=== PATIENT | male | born 1960 | race Caucasian/White ===

== ENCOUNTER 2022-11-08 06:38 | Outpatient (OUT) | payer MEDICARE, MEDICAID, SELFPAY ==
[2022-11-08 07:04] LABS: Basophils Percent Auto 0.6 % (0.2-2.0); Eosinophils Absolute Auto 0.2 10^3/uL (0.0-0.7); Eosinophils Percent Auto 2.6 % (0.9-7.0); Hematocrit 37.1 % (42.0-54.0); Hemoglobin 12.2 g/dL (14.0-18.0); Immature Granulocytes Abs Auto 0.02 10^3/uL (0.00-0.03); Immature Granulocytes Pct Auto 0.3 % (0.0-0.5); Lymphocytes Absolute Auto 1.4 10^3/uL (1.2-3.8); Lymphocytes Percent Auto 21.9 % (20.5-60.0); Mean Corpuscular HGB Conc 32.9 g/dL (29.9-35.2); Mean Corpuscular Hemoglobin 29.5 pg (25.9-34.0); Mean Corpuscular Volume 89.6 fL (80.0-94.0); Mean Platelet Volume 9.9 fL (9.5-13.5); Monocytes Absolute Auto 0.5 10^3/uL (0.3-0.8); Monocytes Percent Auto 8.2 % (1.7-12.0); Neutrophils Absolute Auto 4.1 10^3/uL (1.4-6.5); Neutrophils Percent Auto 66.4 % (43.0-75.0); Platelet Count 172 10^3/uL (150-450); Red Blood Count 4.14 10^6/uL (4.70-6.10); Red Cell Distribution Width 13.7 % (11.0-15.0); White Blood Count 6.2 10^3/uL (4.0-11.0)
[2022-11-08 07:40] LABS: Alanine Aminotransferase 25 U/L (16-63); Albumin Globulin Ratio 0.8; Albumin Level 3.2 g/dL (3.4-5.0); Alkaline Phosphatase 97 U/L (46-116); Aspartate Amino Transferase 10 U/L (15-37); BUN Creatinine Ratio 19.4; Bilirubin Total 0.2 mg/dL (0.2-1.0); Calcium 9.2 mg/dL (8.5-10.1); Carbon Dioxide 26.9 mmol/L (21.0-32.0); Chloride 105 mmol/L (98-107); Chol HDL Ratio 2.4; Cholesterol 129 mg/dL (<=200); Estimated GFR (African America >60 (>=60); Estimated GFR (Non-African Ame 57 (>=60); Globulin 4.2 g/dL; Glucose 96 mg/dL (74-106); HDL Cholesterol 53 mg/dL (40-60); LDL Cholesterol Calculated 64.6 mg/dL; Potassium 3.9 mmol/L (3.5-5.1); Sodium 139 mmol/L (136-145); Total Protein 7.4 g/dL (6.4-8.2); Triglycerides 57 mg/dL (<=150); VLDL CHOLESTEROL 11.4 mg/dL
== END 2022-11-08 06:39 ==
LOC: LAB 06:38
PROVIDERS: PCP Nurse Practitioner; Visit Provider Nurse Practitioner
DX: E78.2 Mixed hyperlipidemia (principal); D50.8 Other iron deficiency anemias; I10 Essential (primary) hypertension; E55.9 Vitamin D deficiency, unspecified
CPT/HCPCS: 36415; 80053; 80061; 82306; 83540; 85025

== ENCOUNTER 2023-05-17 09:08 | Outpatient (OUT) | payer MEDICARE, MEDICAID, SELFPAY ==
[2023-05-17 09:21] LABS: Basophils Percent Auto 0.6 % (0.2-2.0); Eosinophils Absolute Auto 0.1 10^3/uL (0.0-0.7); Eosinophils Percent Auto 1.2 % (0.9-7.0); Hematocrit 36.1 % (42.0-54.0); Hemoglobin 11.7 g/dL (14.0-18.0); Immature Granulocytes Abs Auto 0.03 10^3/uL (0.00-0.03); Immature Granulocytes Pct Auto 0.5 % (0.0-0.5); Lymphocytes Absolute Auto 1.3 10^3/uL (1.2-3.8); Lymphocytes Percent Auto 18.8 % (20.5-60.0); Mean Corpuscular HGB Conc 32.4 g/dL (29.9-35.2); Mean Corpuscular Hemoglobin 30.6 pg (25.9-34.0); Mean Corpuscular Volume 94.5 fL (80.0-94.0); Mean Platelet Volume 10.6 fL (9.5-13.5); Monocytes Absolute Auto 0.7 10^3/uL (0.3-0.8); Monocytes Percent Auto 10.8 % (1.7-12.0); Neutrophils Absolute Auto 4.5 10^3/uL (1.4-6.5); Neutrophils Percent Auto 68.1 % (43.0-75.0); Platelet Count 145 10^3/uL (150-450); Red Blood Count 3.82 10^6/uL (4.70-6.10); White Blood Count 6.7 10^3/uL (4.0-11.0)
[2023-05-17 11:19] LABS: Alanine Aminotransferase 19 U/L (16-63); Albumin Globulin Ratio 0.7; Albumin Level 2.8 g/dL (3.4-5.0); Alkaline Phosphatase 74 U/L (46-116); Aspartate Amino Transferase 18 U/L (15-37); BUN Creatinine Ratio 21.8; Bilirubin Total 0.3 mg/dL (0.2-1.0); Calcium 9.2 mg/dL (8.5-10.1); Carbon Dioxide 27.4 mmol/L (21.0-32.0); Chloride 103 mmol/L (98-107); Estimated GFR (African America >60 (>=60); Estimated GFR (Non-African Ame >60 (>=60); Globulin 4.1 g/dL; Glucose 92 mg/dL (74-106); Potassium 4.4 mmol/L (3.5-5.1); Sodium 138 mmol/L (136-145); Total Protein 6.9 g/dL (6.4-8.2)
== END 2023-05-17 09:09 | disposition home or self-care (01) ==
LOC: LAB 09:08
PROVIDERS: PCP Nurse Practitioner; Visit Provider Nurse Practitioner
DX: E78.2 Mixed hyperlipidemia (principal); D50.8 Other iron deficiency anemias; I10 Essential (primary) hypertension; E55.9 Vitamin D deficiency, unspecified
CPT/HCPCS: 36415; 80053; 85025

== ENCOUNTER 2023-06-06 18:22 | Emergency (ER) | payer MEDICARE, MEDICAID, SELFPAY ==
[2023-06-06 18:29] VITALS: BP 139/66; PULSE 85; RESP 20; TEMP 36.8; O2SAT 96; BMI 29.4
--- OUTSIDE RECORDS SUMMARY | 2023-06-06 18:30 | XMS_ITS | CCD ---
Author Name Unknown Address [address] [place] [address] Organization [facility] Care Team Providers Care Integrity Consultant Name Role Phone Unavailable Primary Care Provider Unavailabl e OSMAN, CHAPIN Admitting Unavailable OSMAN, CHAPIN Attending Unavailable OSMAN, CHAPIN Primary Care Unavailable OSMAN, CHAPIN Consulting Unavailable OSMAN, CHAPIN Admitting Unavailable OSMAN, CHAPIN Attending Unavailable OSMAN, CHAPIN Primary Care Unavailable OSMAN, CHAPIN Consulting Unavailable OSMAN, CHAPIN Admitting Unavailable OSMAN, CHAPIN Attending Unavailable OSMAN, CHAPIN Primary Care Unavailable OSMAN, CHAPIN Consulting Unavailable OSMAN, CHAPIN Admitting Unavailable OSMAN, CHAPIN Attending Unavailable OSMAN, CHAPIN Primary Care Unavailable OSMAN, CHAPIN Consulting Unavailable OSMAN, CHAPIN Admitting Unavailable OSMAN, CHAPIN Attending Unavailable OSMAN, CHAPIN Primary Care Unavailable OSMAN, CHAPIN Consulting Unavailable Unavailable Primary Care Provider Unavailabl e PROVIDER, UNKNOWN Attending Unavailable PROVIDER, UNKNOWN Admitting Unavailable MARIA LUISA DEWEY Attending Unavailable RUSHER, MARIA LUISA Ma Attending Unavailable MARIA LUISA DEWEY Attending Unavailable Medications Current Medications Medication Drug Class(es) Dates Sig (Normalized) Sig (Original) acetaminophen 500 mg oral tablet (6 sources) Start: 09-29-2021 End: 10-05-2021 take 1 tablet by mouth every six hours as needed for pain acetaminophen (TYLENOL) 500 MG tablet Take 1 Tablet by mouth every 6 hours as needed for Pain or Fever for up to 6 days. 24 Tablet 0 09/29/2021 10/05/2021 [facility] needed acetaminophen (TYLENOL) 325 mg tablet Ta ke 2 Tablets by mouth every 6 hours as needed. 0 Active ascorbic acid 60 mg / beta carotene 5000 unt / copper sulfate 40 mg / dl-alpha tocopheryl acetate 30 unt / sodium selenite 0.04 mg / zinc oxide 40 mg oral tablet (5 sources) Vitamin C take 1 tablet by mouth once daily Multiple Vitamins-Iron (Multivitamin Plus Iron Adult) TABS Take 1 Tablet by mouth daily. 0 Active carbamide peroxide 65 mg/ml otic solution (5 sources) carbamide peroxi de (DEBROX/MURINE) 6.5 % otic solution 3 Drops at bedtime as needed. 0 Active citalopram 40 mg oral tablet (5 sources) Serotonin Reuptake Inhibitor take 1 tablet by mouth once daily citalopram (CeleXA) 40 MG tablet Take 40 mg by mouth daily. 0 Active 24 hr dilTIAZem hydrochloride 240 mg extended release oral capsule (7 sources) Calcium Channel Chanda take 1 capsule by mouth once daily diltiazem (CARDIZEM CD) 240 MG ER capsule Take 240 mg by mouth daily. 0 Active ferrous sulfate 325 mg oral tablet (5 sources) take 1 tablet by mouth once daily ferrous sulfate 325 (65 Fe) MG tablet Take 325 mg by mouth daily. 0 Active guaiFENesin 20 mg/ml oral solution (5 sources) take 200 mg by mouth three times daily as needed guaifenesin (ROBITUSSIN) 100 MG/5ML syrup Take 200 mg by mouth 3 times daily as needed. 0 Active hydrocortisone 25 mg/ml topical cream (5 sources) Corticosteroid hydrocortisone 2 .5 % cream Apply 1 Applicator topically 2 times daily as needed. Insert one application into rectum for hemorrhoids 0 Active ammonium lactate 120 mg/ml topical cream (5 sources) ammonium lactate (LAC-HYDRIN) 12 % cream Apply 1 Applicator topically daily as needed. Apply one application to affected area. 0 Active lactobacillus acidophilus 16 mg oral capsule (7 sources) take 1 tablet by mouth three times daily Lactobacillus (ACIDOPHILUS) 100 MG CAPS Take 1 Tab by mouth 3 times daily. 0 Active lactulose 667 mg/ml oral solution (8 sources) Osmotic Laxative End: 022 take 20 g by mouth twice daily lactulose 10 g/15 mL oral solution Take 20 g by mouth 2 times daily. 0 Active lisinopril 30 mg oral tablet (7 sources) Angiotensin Converting Enzyme Inhibitor take 1 tablet by mouth once daily lisinopril (PRINIVIL, ZESTRIL) 30 MG tablet Take 30 mg by mouth daily. 0 Active LORazepam 2 mg oral tablet (5 sources) Benzodiazepine lorazepam (ATIVA N) 2 MG tablet Take 2 mg by mouth as needed. Take 2 mg one hour prior to appointments, procedures, blood draws or testing 0 Active miconazole nitrate 20 mg/ml topical spray (5 sources) Azole Antifungal Miconazole Nitr ate 2 % AERO Apply 1 Applicator externally daily. 0 Active 24 hr mirabegron 50 mg extended release oral tablet (5 sources) beta3-Adrenergic Agonist take 1 tablet by mouth once daily mirabegron ER (MYRBETRIQ) 50 MG TB24 tablet Take 50 mg by mouth daily. 0 Active omega-3 acid ethyl esters (halfway) 1000 mg oral capsule (5 sources) take 1 g by mouth once daily wyhaa-8-ulpf (LOVAZA) 1 GM capsule Take 1,000 mg by mouth daily. 0 Active 24 hr oxybutynin chloride 15 mg extended release oral tablet (8 sources) Cholinergic Muscarinic Antagonist End: take 1 tablet by mouth once daily oxybutynin (DITROPAN XL) 15 MG XL tablet Take 15 mg by mouth daily. 0 Active polyethylene glycol 3350 02460 mg powder for oral solution (8 sources) Osmotic Laxative End: polyethylene glycol (GLYCOLAX) 17 GM/SCOOP powder Dissolve 17 g in 8 ounces of liquid and drink daily. 0 Active risperiDONE 0.5 mg oral tablet (5 sources) Atypical Antipsychotic take 1 tablet by mouth twice daily risperiDONE (RISPERDAL) 0.5 MG tablet Take 0.5 mg by mouth 2 times daily. 0 Active sennosides, halfway 8.6 mg oral tablet (7 sources) take 2 tablets by mouth at bedtime senna (SENOKOT) 8.6 MG TABS tablet Take 2 Tabs by mouth at bedtime. 0 Active simvastatin 10 mg oral tablet (8 sources) HMG-CoA Reductase Inhibitor End: take 1 tablet by mouth once daily in the evening simvastatin (ZOCOR) 10 MG tablet Take 10 mg by mouth every evening. 0 Active Zinc (4 sources) take 1 tablet by mouth once daily Zinc 50 MG TABS Take 1 Tablet by mouth daily. 0 Active zinc gluconate 50 mg oral tablet (1 source) take 1 tablet by mouth once daily Zinc 50 MG TABS Take 1 Tablet by mouth daily. 0 Active Completed/Discontinued Medications Medication Drug Class(es) Dates Sig (Normalized) Sig (Original) amoxicillin 500 mg oral capsule (3 sources) Penicillin-class Antibacterial End: 09-20-2021 take 1 capsule by mouth once daily amoxicillin (AMOXIL) 500 MG capsule Take 500 mg by mouth daily. 0 09/20/2021 Discontinued (Discontinued by another Health Care Provider) chlorhexidine gluconate 1.2 mg/ml mouthwash (2 sources) Start: 01-07-2014 End: 09-20-2021 take 15 mL by mouth twice daily chlorhexidine (PERIDEX) 0.12 % oral solution Take 15 mL by mouth 2 times daily for 15 days. 1 Bottle 3 01/07/2014 09/20/2021 Discontinued (Discontinued by another Health Care Provider) docosahexaenoic acid 120 mg / eicosapentaenoic acid 180 mg oral capsule (3 sources) End: 09-20-2021 take 2 capsules by mouth twice daily [place]-3 1000 MG CAPS Take 2 Caps by mouth 2 times daily. 0 09/20/2021 Discontinued (Discontinued by another Health Care Provider) Multiple Vitamins-Minerals (COMPLETE MULTIVITAMIN/MINERAL) LIQD (3 sources) End: 09-20-2021 take 1 tablet by mouth once daily Multiple Vitamins-Minerals (COMPLETE MULTIVITAMIN/BOAT OPERATOR AL) LIQD Take 1 Tab by mouth daily. 0 09/20/2021 Discontinued (Discontinued by another Health Care Provider) take 1 tablet by mouth once gonzalo y Multiple Vitamins-Minerals (COMPLETE MULTIVITAMIN/MINERAL) LIQD Take 1 Tab by mouth daily. 0 Active Psyllium (3 sources) End: 09-20-2021 Psyllium (METAMUCIL SUNRISE ORAL) Take by mouth. 0 09/20/2021 Discontinued (Discontinued by another Health Care Provider) Psyllium (METAMU CIL SUNRISE ORAL) Take by mouth. 0 Active raNITIdine 150 mg oral tablet (3 sources) Histamine-2 Receptor Antagonist End: 09-20-2021 take 1 tablet by mouth twice daily ranitidine (ZANTAC) 150 MG tablet Take 150 mg by mouth 2 times daily. 0 09/20/2021 Discontinued (Discontinued by another Health Care Provider) Problems Active Problems Problem Classification Problem Date Documented Da te Episodic/Chronic Deficiency and other anemia (1 source) Other iron deficiency anemias; 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: [OTHER IRON DEFICIENCY ANEMIAS] Onset: 11-02-2021 Episodic Disorders of lipid metabolism (4 sources) Mixed hyperlipidemia; 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: [MIXED HYPERLIPIDEMIA] Onset: 10-31-2021 Chronic Essential hypertension (1 source) Essential (primary) hypertension; 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: [ESSENTIAL PRIMARY HYPERTENSION] Onset: 11-02-2021 Chronic Nutritional deficiencies (1 source) Vitamin D deficiency, unspecified; 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: [VITAMIN D DEFICIENCY UNSPECIFIED] Onset: 11-02-2021 Chronic Unclassified (3 sources) CONTACT W/AND (SUSP) EXPOS COVID-19; 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: [CONTACT W/AND (SUSP) EXPOS COVID-19] Onset: 03-15-2021 Past or Other Problems Problem Classification Problem Date Documented Da te Episodic/Chronic Disorders of teeth and jaw (7 sources) Dental caries; 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: [Dental caries, unspecified] Onset: 08-02-2021 08-02-2021 Episodic Unclassified (1 source) CONTACT W/AND (SUSP) EXPOS COVID-19; 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: [CONTACT W/AND (SUSP) EXPOS COVID-19] Onset: 03-01-2021 Results Test Name Value Interpretation Reference Range Facility Progress Noteson 11-30-2022 [employer] Authentication Interface Message Text ----- Wednesday, November 30, 2022 at 1:07:59 PM ----- ----- Provider: Donovan Alvarado, -- Clinic: [place] ----- OR EVALUATION Patient presents for evaluation to determine best course of treatment due to history of . Moderate MR, Spina Bifida w/Paraplegia, HTN, Anemia, Hydrochephalus, Constipation, Bilateral Hydronephrosis Patient is accompanied by caregiver for today's appointment. Patient partially cooperated for a partial intraoral exam. Clinical findings: Decay and Gingivitis It is best suited that this patient have full comprehensive examination, radiographs and treatment completed in the OR setting. Explained that the patient will be added to our OR waiting list, and the legal guardian will be contacted once a time slot becomes available. Legal Guardian: Vilma Schmitt (Sister) [phone] , verbal consent was taken NOTE: OR request was put in place Next Visit: Dental treatment in the OR ----- Signed on Wednesday, November 30, 2022 at 8:25:31 PM ----- ----- Provider: [id number] - Winston Glass DMD -- Clinic: [place] ----- Normal [facility] CBC AUTO DIFFon 10-31-2021 BASO # 0.0 103/ul Normal 0.0-0.1 [facility] Comment on above: Performed By: #### C BC #### [facility] [address] [address] [address] Dante Jules Basophils/100 WBC (Bld) 0.5 % Normal 0.2-2.0 [facility] Comment on above: Performed By: #### C BC #### [facility] [address] [address] [address] Dante Jules EO # 0.2 103/ul Normal 0.0-0.7 [facility] Comment on above: Performed By: #### C BC #### [facility] [address] [address] [address] Dante Jules Eosinophils/100 WBC (Bld) 2.3 % Normal 0.9-7.0 [facility] Comment on above: Performed By: #### C BC #### [facility] [address] [address] [address] Dante Jules Erythrocyte distribution width (RBC) [Ratio] 13.6 % Normal 11.0-15.0 [facility] Comment on above: Performed By: #### C BC #### [facility] [address] [address] [address] Dante Jules Hematocrit (Bld) [Volume fraction] 41.6 % Critically low 42.0-54.0 [facility] Comment on above: Performed By: #### C BC #### [facility] [address] [address] [address] Dante Jules Hemoglobin (Bld) [Mass/Vol] 13.3 g/dL Critically low 14.0-18.0 [facility] Comment on above: Performed By: #### C BC #### [facility] [address] [address] [address] Dante Jules IG # 0.01 10e3/ul Normal 0.00-0.03 [facility] Comment on above: Performed By: #### C BC #### [facility] [address] [place] [address] Dr. Dante Jules IG % 0.1 % Normal 0.0-0.5 [facility] Comment on above: Performed By: #### C BC #### [facility] [address] [place] [address] Dr. Dante Jules LYMPH # 1.7 103/ul Normal 1.2-3.8 [facility] Comment on above: Performed By: #### C BC #### [facility] [address] [place] [address] Dr. Dante Jules Lymphocytes/100 WBC (Bld) 21.8 % Normal 20.5-60.0 [facility] Comment on above: Performed By: #### C BC #### [facility] [address] [place] [address] Dr. Dante Jules MANUAL DIFF REQ NO Normal [facility] Comment on above: Performed By: #### C BC #### [facility] [address] [place] [address] Dr. Dante Jules MCH (RBC) [Entitic mass] 29.4 pg Normal 25.9-34.0 [facility] Comment on above: Performed By: #### C BC #### [facility] [address] [place] [address] Dr. Dante Jules MCHC (RBC) [Mass/Vol] 32.0 g/dL Normal 29.9-35.2 [facility] Comment on above: Performed By: #### C BC #### [facility] [address] [place] [address] Dr. Dante Jules MCV (RBC) [Entitic vol] 91.8 fL Normal 80.0-94.0 [facility] Comment on above: Performed By: #### C BC #### [facility] [address] [place] [address] Dr. Dante Jules MONO # 0.6 103/ul Normal 0.3-0.8 [facility] Comment on above: Performed By: #### C BC #### [facility] [address] [place] [address] Dr. Dante Jules Monocytes/100 WBC (Bld) 7.8 % Normal 1.7-12.0 [facility] Comment on above: Performed By: #### C BC #### [facility] [address] [place] [address] Dr. Dante Jules NEUT # 5.3 103/ul Normal 1.4-6.5 [facility] Comment on above: Performed By: #### C BC #### [facility] [address] [place] [address] Dr. Dante Jules Neutrophils/100 WBC (Bld) 67.5 % Normal 43.0-75.0 [facility] Comment on above: Performed By: #### C BC #### [facility] [address] [place] [address] Dr. Dante Jules Platelet mean volume (Bld) [Entitic vol] 10.2 fL Normal 9.5-13.5 [facility] Comment on above: Performed By: #### C BC #### [facility] [address] [place] [address] Dr. Dante Jules PLT 191 103/ul Normal 150-450 [facility] Comment on above: Performed By: #### C BC #### [facility] [address] [place] [address] Dr. Dante Jules RBC 4.53 106/ul Critically low 4.70-6.10 [facility] Comment on above: Performed By: #### C BC #### [facility] [address] [place] [address] Dr. Dante Jules WBC 7.9 103/ul Normal 4.0-11.0 [facility] Comment on above: Performed By: #### C BC #### [facility] [address] [place] [address] Dr. Dante Jules IRON AND TIBCon 10-24-2021 % SATURATION 19.9 % Normal [facility] Comment on above: Performed By: #### F ETIBC #### [facility] [address] [place] [address] Dr. Dante Jules Iron [Mass/Vol] 67.0 ug/dL Normal 65.0-175.0 [facility] Comment on above: Performed By: #### F ETIBC #### [facility] [address] [address] [address] Dante Jules TIBC DIRECT 336.0 ug/dL Normal 250.0-450.0 [facility] Comment on above: Performed By: #### F ETIBC #### [facility] [address] [address] [address] Dante Jules LIPID PROFILEon 10-24-2021 CHOL-HDL RATIO NORM SEE BELOW Normal [facility] Comment on above: Result Comment: 3.3 - 4.4 LOW RISK 4.4 - 7.1 AVERAGE RISK 7.1 - 11.0 MODERATE RISK >11.0 HIGH RISK Performed By: #### L IPID, CMP #### [facility] [address] [address] [address] Dante Jules Cholesterol [Mass/Vol] 170 mg/dL Normal <=200 [facility] Comment on above: Performed By: #### L IPID, CMP #### [facility] [address] [address] [address] Dante Jules Cholesterol in HDL [Mass/Vol] 52 mg/dL Normal 40-60 [facility] Comment on above: Performed By: #### L IPID, CMP #### [facility] [address] [address] [address] Dante Jules Cholesterol in LDL [Mass/Vol] 104.0 mg/dL Normal [facility] Comment on above: Performed By: #### L IPID, CMP #### [facility] [address] [address] [address] Dante Jules Cholesterol.total/C holesterol in HDL [Mass ratio] 3.3 {ratio} Normal [facility] Comment on above: Performed By: #### L IPID, CMP #### [facility] [address] [address] [address] Dante Jules HDL NORMAL > or = 60 mg/dl - LOW CARDIOVASCULAR RISK <40 mg/dl - HIGH CARDIOVASCULAR RISK Normal [facility] Comment on above: Performed By: #### L IPID, CMP #### [facility] [address] [address] [address] Dante Jules LDL CALC NORMAL SEE BELOW Normal [facility] Comment on above: Result Comment: <100 mg/dl OPTIMAL 100 - 129 mg/dl NEAR OR ABOVE OPTIMAL 130 - 159 mg/dl BORDERLINE HIGH 160 - 189 mg/dl HIGH >190 mg/dl VERY HIGH Performed By: #### L IPID, CMP #### [facility] [address] [address] [address] Dante Jules Triglyceride [Mass/Vol] 70 mg/dL Normal <=150 [facility] Comment on above: Performed By: #### L IPID, CMP #### [facility] [address] [address] [address] Dante Jules VLDL CALC 14.0 mg/dL Normal [facility] Comment on above: Performed By: #### L IPID, CMP #### [facility] [address] [place] [address] Dr. Dante Jules PROF 14(COMP METB)on 022 Albumin [Mass/Vol] 3.4 g/dL Normal 3.4-5.0 [facility] Comment on above: Performed By: #### L IPID, CMP #### [facility] [address] [place] [address] Dr. Dante Jules Albumin/Globulin [Mass ratio] 0.8 {ratio} Normal [facility] Comment on above: Performed By: #### L IPID, CMP #### [facility] [address] [address] [address] Dante Jules ALP [Catalytic activity/Vol] 104 U/L Normal 46-116 [facility] Comment on above: Performed By: #### L IPID, CMP #### [facility] [address] [address] [address] Dante Jules ALT [Catalytic activity/Vol] 31 U/L Normal 16-63 [facility] Comment on above: Performed By: #### L IPID, CMP #### [facility] [address] [address] [address] Dante Jules Anion gap [Moles/Vol] 11.9 mmol/L Normal [facility] Comment on above: Performed By: #### L IPID, CMP #### [facility] [address] [address] [address] Dante Jules AST [Catalytic activity/Vol] 22 U/L Normal 15-37 [facility] Comment on above: Performed By: #### L IPID, CMP #### [facility] [address] [address] [address] Dante Jules Bilirubin [Mass/Vol] 0.4 mg/dL Normal 0.2-1.0 [facility] Comment on above: Performed By: #### L IPID, CMP #### [facility] [address] [place] [address] Dr. Dante Jules Calcium [Mass/Vol] 9.0 mg/dL Normal 8.5-10.1 [facility] Comment on above: Performed By: #### L IPID, CMP #### [facility] [address] [place] [address] Dr. Dante Jules Chloride [Moles/Vol] 106 mmol/L Normal 98-107 [facility] Comment on above: Performed By: #### L IPID, CMP #### [facility] [address] [place] [address] Dr. Dante Jules CO2 [Moles/Vol] 26.3 mmol/L Normal 21.0-32.0 [facility] Comment on above: Performed By: #### L IPID, CMP #### [facility] [address] [place] [address] Dr. Dante Jules Creatinine [Mass/Vol] 1.17 mg/dL Normal 0.70-1.30 [facility] Comment on above: Performed By: #### L IPID, CMP #### [facility] [address] [place] [address] Dr. Dante Jules EGFR-AF IRANIAN >60 Normal >=60 [facility] Comment on above: Performed By: #### L IPID, CMP #### [facility] [address] [address] [address] Dante Jules EGFR-NON AF IRANIAN >60 Normal >=60 [facility] Comment on above: Performed By: #### L IPID, CMP #### [facility] [address] [address] [address] Dante Jules Globulin (S) [Mass/Vol] 4.2 g/dL Normal [facility] Comment on above: Performed By: #### L IPID, CMP #### [facility] [address] [address] [address] Dante Jules Glucose [Mass/Vol] 95 mg/dL Normal 74-106 [facility] Comment on above: Performed By: #### L IPID, CMP #### [facility] [address] [place] [address] Dr. Dante Jules Potassium [Moles/Vol] 4.2 mmol/L Normal 3.5-5.1 [facility] Comment on above: Performed By: #### L IPID, CMP #### [facility] [address] [place] [address] Dr. Dante Jules Protein [Mass/Vol] 7.6 g/dL Normal 6.4-8.2 [facility] Comment on above: Performed By: #### L IPID, CMP #### [facility] [address] [place] [address] Dr. Dante Jules Sodium [Moles/Vol] 140 mmol/L Normal 136-145 [facility] Comment on above: Performed By: #### L IPID, CMP #### [facility] [address] [address] [address] Dante Jules Urea nitrogen [Mass/Vol] 22.0 mg/dL Critically high 7.0-18.0 [facility] Comment on above: Performed By: #### L IPID, CMP #### [facility] [address] [place] [address] Dr. Dante Jules Urea nitrogen/Creatinine [Mass ratio] 18.8 mg/mg Normal [facility] Comment on above: Performed By: #### L IPID, CMP #### [facility] [address] [place] [address] Dr. Dante Jules CBC AUTO DIFFon 08-16-2021 BASO # 0.0 103/ul Normal 0.0-0.1 [facility] Comment on above: Performed By: #### V ITAD, PSAD #### [facility] [address] [place] [address] Dr. Dante Jules Basophils/100 WBC (Bld) 0.5 % Normal 0.2-2.0 [facility] Comment on above: Performed By: #### V ITAD, PSAD #### [facility] [address] [place] [address] Dr. Dante Jules EO # 0.4 103/ul Normal 0.0-0.7 [facility] Comment on above: Performed By: #### V ITAD, PSAD #### [facility] [address] [place] [address] Dr. Dante Jules Eosinophils/100 WBC (Bld) 5.0 % Normal 0.9-7.0 [facility] Comment on above: Performed By: #### V ITAD, PSAD #### [facility] [facility] [address] [place] [address] Dr. Dante Jules Erythrocyte distribution width (RBC) [Ratio] 13.6 % Normal 11.0-15.0 [facility] Comment on above: Performed By: #### V ITAD, PSAD #### [facility] [address] [place] [address] Dr. Dante Jules Hematocrit (Bld) [Volume fraction] 36.4 % Critically low 42.0-54.0 [facility] Comment on above: Performed By: #### V ITAD, PSAD #### [facility] [address] [place] [address] Dr. Dante Jules Hemoglobin (Bld) [Mass/Vol] 11.8 g/dL Critically low 14.0-18.0 [facility] Comment on above: Performed By: #### V ITAD, PSAD #### [facility] [address] [address] [address] Dante Jules IG # 0.02 10e3/ul Normal 0.00-0.03 [facility] Comment on above: Performed By: #### V FELICIA, PSAD #### [facility] [address] [place] [address] Dr. Dante Jules IG % 0.2 % Normal 0.0-0.5 [facility] Comment on above: Performed By: #### V FELICIA, PSAD #### [facility] [address] [place] [address] Dr. Dante Jules LYMPH # 2.3 103/ul Normal 1.2-3.8 [facility] Comment on above: Performed By: #### V FELICIA, PSAD #### [facility] [address] [place] [address] Dr. Dante Jules Lymphocytes/100 WBC (Bld) 28.0 % Normal 20.5-60.0 [facility] Comment on above: Performed By: #### Tiffani DUARTE, PSAD #### [facility] [address] [place] [address] Dr. Dante Jules MANUAL DIFF REQ NO Normal [facility] Comment on above: Performed By: #### V FELICIA, PSAD #### [facility] [address] [place] [address] Dr. Dante Jules MCH (RBC) [Entitic mass] 29.1 pg Normal 25.9-34.0 [facility] Comment on above: Performed By: #### V FELICIA, PSAD #### [facility] [address] [place] [address] Dr. Dante Jules MCHC (RBC) [Mass/Vol] 32.4 g/dL Normal 29.9-35.2 [facility] Comment on above: Performed By: #### V ITKRYSTLE, PSAD #### [facility] [address] [place] [address] Dr. Dante Jules MCV (RBC) [Entitic vol] 89.7 fL Normal 80.0-94.0 [facility] Comment on above: Performed By: #### V FELICIA, PSAD #### [facility] [address] [place] [address] Dr. Dante Jules MONO # 0.7 103/ul Normal 0.3-0.8 [facility] Comment on above: Performed By: #### V ITAD, PSAD #### [facility] [address] [place] [address] Dr. Dante Jules Monocytes/100 WBC (Bld) 8.5 % Normal 1.7-12.0 [facility] Comment on above: Performed By: #### V ITAD, PSAD #### [facility] [address] [place] [address] Dr. Dante Jules NEUT # 4.7 103/ul Normal 1.4-6.5 [facility] Comment on above: Performed By: #### V ITAD, PSAD #### [facility] [address] [place] [address] Dr. Dante Jules Neutrophils/100 WBC (Bld) 57.8 % Normal 43.0-75.0 [facility] Comment on above: Performed By: #### V ITAD, PSAD #### [facility] [address] [place] [address] Dr. Dante Jules Platelet mean volume (Bld) [Entitic vol] 9.9 fL Normal 9.5-13.5 [facility] Comment on above: Performed By: #### V ITAD, PSAD #### [facility] [address] [place] [address] Dr. Dante Jules PLT 155 103/ul Normal 150-450 [facility] Comment on above: Performed By: #### V ITAD, PSAD #### [facility] [address] [place] [address] Dr. Dante Jules RBC 4.06 106/ul Critically low 4.70-6.10 [facility] Comment on above: Performed By: #### V ITAD, PSAD #### [facility] [address] [place] [address] Dr. Dante Jules WBC 8.0 103/ul Normal 4.0-11.0 [facility] Comment on above: Performed By: #### V ITKRYSTLE, PSAD #### [facility] [address] [address] [address] Dante Jules PROF 14(COMP METB)on 022 Albumin [Mass/Vol] 3.1 g/dL Critically low 3.4-5.0 Th e [facility] Comment on above: Performed By: #### C MP #### [facility] [address] [place] [address] Dr. Dante Jules Albumin/Globulin [Mass ratio] 0.7 {ratio} Normal [facility] Comment on above: Performed By: #### C MP #### [facility] [address] [place] [address] Dr. Dante Jules ALP [Catalytic activity/Vol] 112 U/L Normal 46-116 [facility] Comment on above: Performed By: #### C MP #### [facility] [address] [place] [address] Dr. Dante Jules ALT [Catalytic activity/Vol] 29 U/L Normal 16-63 [facility] Comment on above: Performed By: #### C MP #### [facility] [address] [place] [address] Dr. Dante Jules Anion gap [Moles/Vol] 13.7 mmol/L Normal [facility] Comment on above: Performed By: #### C MP #### [facility] [address] [place] [address] Dr. Dante Jules AST [Catalytic activity/Vol] 15 U/L Normal 15-37 [facility] Comment on above: Performed By: #### C MP #### [facility] [address] [place] [address] Dr. Dante Jules Bilirubin [Mass/Vol] 0.2 mg/dL Normal 0.2-1.3 [facility] Comment on above: Performed By: #### C MP #### [facility] [address] [place] [address] Dr. Dante Jules Calcium [Mass/Vol] 8.5 mg/dL Normal 8.5-10.1 [facility] Comment on above: Performed By: #### C MP #### [facility] [address] [address] [address] Dante Jules Chloride [Moles/Vol] 104 mmol/L Normal 98-107 [facility] Comment on above: Performed By: #### C MP #### [facility] [address] [address] [address] Dante Jules CO2 [Moles/Vol] 24.2 mmol/L Normal 22.0-30.0 [facility] Comment on above: Performed By: #### C MP #### [facility] [address] [address] [address] Dante Jules Creatinine [Mass/Vol] 1.09 mg/dL Normal 0.66-1.25 [facility] Comment on above: Performed By: #### C MP #### [facility] [address] [address] [address] Dante Jules EGFR-AF IRANIAN >60 Normal >=60 [facility] Comment on above: Performed By: #### C MP #### [facility] [address] [address] [address] Dante Jules EGFR-NON AF IRANIAN >60 Normal >=60 [facility] Comment on above: Performed By: #### C MP #### [facility] [address] [address] [address] Dante Jules Globulin (S) [Mass/Vol] 4.2 g/dL Normal [facility] Comment on above: Performed By: #### C MP #### [facility] [address] [address] [address] Dante Jules Glucose [Mass/Vol] 117 mg/dL Critically high 74-106 T [facility] Comment on above: Performed By: #### C MP #### [facility] [address] [address] [address] Dante Jules Potassium [Moles/Vol] 3.9 mmol/L Normal 3.4-5.0 [facility] Comment on above: Performed By: #### C MP #### [facility] [address] [place] [address] Dr. Dante Jules Protein [Mass/Vol] 7.3 g/dL Normal 6.1-8.2 [facility] Comment on above: Performed By: #### C MP #### [facility] [address] [place] [address] Dr. Dante Jules Sodium [Moles/Vol] 138 mmol/L Normal 137-145 [facility] Comment on above: Performed By: #### C MP #### [facility] [address] [place] [address] Dr. Dante Jules Urea nitrogen [Mass/Vol] 22.0 mg/dL Critically high 7.0-18.0 [facility] Comment on above: Performed By: #### C MP #### [facility] [address] [place] [address] Dr. Dante Jules Urea nitrogen/Creatinine [Mass ratio] 20.2 mg/mg Normal [facility] Comment on above: Performed By: #### C MP #### [facility] [address] [place] [address] Dr. Dante Jules VITAMIN D 25 OHon 08-16-2021 VIT D 25-OH 31.9 ng/mL Normal [facility] Comment on above: Performed By: #### V FELICIA PSAD #### [facility] [address] [place] [address] Dr. Dante Jules VIT D RANGES SEE BELOW Normal [facility] Comment on above: Result Comment: <20 ng/mL Vit D deficient 20 - <30 ng/mL Vit D insufficient 30 - 100 ng/mL Vit D sufficient >100 ng/mL Potential Toxicity Performed By: #### V FELICIA, PSAD #### [facility] [address] [place] [address] Dr. Dante Jules CBC AUTO DIFFon 03-13-2021 BASO # 0.0 103/ul Normal 0.0-0.1 [facility] Comment on above: Performed By: #### C BC #### [facility] [address] [place] [address] Dr. Dante Jules Basophils/100 WBC (Bld) 0.5 % Normal 0.2-2.0 [facility] Comment on above: Performed By: #### C BC #### [facility] [address] [place] [address] Dr. Dante Jules EO # 0.2 103/ul Normal 0.0-0.7 [facility] Comment on above: Performed By: #### C BC #### [facility] [address] [place] [address] Dr. Dante Jules Eosinophils/100 WBC (Bld) 2.5 % Normal 0.9-7.0 [facility] Comment on above: Performed By: #### C BC #### [facility] [address] [place] [address] Dr. Dante Jules Erythrocyte distribution width (RBC) [Ratio] 13.3 % Normal 11.0-15.0 [facility] Comment on above: Performed By: #### C BC #### [facility] [address] [place] [address] Dr. Dante Jules Hematocrit (Bld) [Volume fraction] 36.9 % Critically low 42.0-54.0 [facility] Comment on above: Performed By: #### C BC #### [facility] [address] [place] [address] Dr. Dante Jules Hemoglobin (Bld) [Mass/Vol] 12.0 g/dL Critically low 14.0-18.0 [facility] Comment on above: Performed By: #### C BC #### [facility] [address] [place] [address] Dr. Dante Jules IG # 0.01 10e3/ul Normal 0.00-0.03 [facility] Comment on above: Performed By: #### C BC #### [facility] [address] [place] [address] Dr. Dante Jules IG % 0.2 % Normal 0.0-0.5 [facility] Comment on above: Performed By: #### C BC #### [facility] [address] [place] [address] Dr. Dante Jules LYMPH # 1.4 103/ul Normal 1.2-3.8 [facility] Comment on above: Performed By: #### C BC #### [facility] [address] [place] [address] Dr. Dante Jules Lymphocytes/100 WBC (Bld) 24.4 % Normal 20.5-60.0 [facility] Comment on above: Performed By: #### C BC #### [facility] [address] [place] [address] Dr. Dante Jules MANUAL DIFF REQ NO Normal [facility] Comment on above: Performed By: #### C BC #### [facility] [address] [place] [address] Dr. Dante Jules MCH (RBC) [Entitic mass] 29.2 pg Normal 25.9-34.0 [facility] Comment on above: Performed By: #### C BC #### [facility] [address] [place] [address] Dr. Dante Jules MCHC (RBC) [Mass/Vol] 32.5 g/dL Normal 29.9-35.2 [facility] Comment on above: Performed By: #### C BC #### [facility] [address] [place] [address] Dr. Dante Jules MCV (RBC) [Entitic vol] 89.8 fL Normal 80.0-94.0 [facility] Comment on above: Performed By: #### C BC #### [facility] [address] [place] [address] Dr. Dante Jules MONO # 0.5 103/ul Normal 0.3-0.8 [facility] Comment on above: Performed By: #### C BC #### [facility] [address] [place] [address] Dr. Dante Jules Monocytes/100 WBC (Bld) 8.3 % Normal 1.7-12.0 [facility] Comment on above: Performed By: #### C BC #### [facility] [address] [place] [address] Dr. Dante Jules NEUT # 3.8 103/ul Normal 1.4-6.5 [facility] Comment on above: Performed By: #### C BC #### [facility] [address] [address] [address] Dante Jules Neutrophils/100 WBC (Bld) 64.1 % Normal 43.0-75.0 [facility] Comment on above: Performed By: #### C BC #### [facility] [address] [address] [address] Dante Jules Platelet mean volume (Bld) [Entitic vol] 10.1 fL Normal 9.5-13.5 [facility] Comment on above: Performed By: #### C BC #### [facility] [address] [address] [address] Dante Jules PLT 161 103/ul Normal 150-450 [facility] Comment on above: Performed By: #### C BC #### [facility] [address] [place] [address] Dr. Dante Jules RBC 4.11 106/ul Critically low 4.70-6.10 [facility] Comment on above: Performed By: #### C BC #### [facility] [address] [place] [address] Dr. Dante Jules WBC 5.9 103/ul Normal 4.0-11.0 [facility] Comment on above: Performed By: #### C BC #### [facility] [address] [place] [address] Dr. Dante Jules PROF 14(COMP METB)on 021 Albumin [Mass/Vol] 3.0 g/dL Critically low 3.5-5.0 [facility] Comment on above: Performed By: #### C MP #### [facility] [address] [place] [address] Dr. Dante Jules Albumin/Globulin [Mass ratio] 0.7 {ratio} Normal [facility] Comment on above: Performed By: #### C MP #### [facility] [address] [address] [address] Dante Jules ALP [Catalytic activity/Vol] 91 U/L Normal 38-126 [facility] Comment on above: Performed By: #### C MP #### [facility] [address] [address] [address] Dante Jules ALT [Catalytic activity/Vol] 30 U/L Normal 21-72 [facility] Comment on above: Performed By: #### C MP #### [facility] [address] [address] [address] Dante Jules Anion gap [Moles/Vol] 10.1 mmol/L Normal [facility] Comment on above: Performed By: #### C MP #### [facility] [address] [address] [address] Dante Jules AST [Catalytic activity/Vol] 18 U/L Normal 17-59 [facility] Comment on above: Performed By: #### C MP #### [facility] [address] [place] [address] Dr. Dante Jules Bilirubin [Mass/Vol] 0.2 mg/dL Normal 0.2-1.3 [facility] Comment on above: Performed By: #### C MP #### [facility] [address] [place] [address] Dr. Dante Jules Calcium [Mass/Vol] 8.7 mg/dL Normal 8.4-10.2 [facility] Comment on above: Performed By: #### C MP #### [facility] [address] [place] [address] Dr. Dante Jules Chloride [Moles/Vol] 103 mmol/L Normal 98-107 [facility] Comment on above: Performed By: #### C MP #### [facility] [address] [place] [address] Dr. Dante Jules CO2 [Moles/Vol] 25.8 mmol/L Normal 22.0-30.0 [facility] Comment on above: Performed By: #### C MP #### [facility] [address] [place] [address] Dr. Dante Jules Creatinine [Mass/Vol] 1.31 mg/dL Critically high 0.66-1.25 [facility] Comment on above: Performed By: #### C MP #### [facility] [address] [address] [address] Dante Jules EGFR-AF IRANIAN >60 Normal >=60 [facility] Comment on above: Performed By: #### C MP #### [facility] [address] [address] [address] Dante Jules EGFR-NON AF IRANIAN 56 mL/min/1.73m2 Critically low >=60 [facility] Comment on above: Performed By: #### C MP #### [facility] [address] [address] [address] Dante Jules Globulin (S) [Mass/Vol] 4.2 g/dL Normal [facility] Comment on above: Performed By: #### C MP #### [facility] [address] [address] [address] Dante Jules Glucose [Mass/Vol] 132 mg/dL Critically high 74-106 T [facility] Comment on above: Performed By: #### C MP #### [facility] [address] [address] [address] Dante Jules Potassium [Moles/Vol] 3.9 mmol/L Normal 3.4-5.0 [facility] Comment on above: Performed By: #### C MP #### [facility] [address] [address] [address] Dante Jules Protein [Mass/Vol] 7.2 g/dL Normal 6.1-8.2 [facility] Comment on above: Performed By: #### C MP #### [facility] [address] [address] [address] Dante Jules Sodium [Moles/Vol] 135 mmol/L Critically low 137-145 [facility] Comment on above: Performed By: #### C MP #### [facility] [address] [address] [address] Dante Jules Urea nitrogen [Mass/Vol] 14.0 mg/dL Normal 9.0-20.0 [facility] Comment on above: Performed By: #### C MP #### [facility] [address] [address] [address] Dante Jules Urea nitrogen/Creatinine [Mass ratio] 10.7 mg/mg Normal [facility] Comment on above: Performed By: #### C MP #### [facility] [address] [place], [place] [address] Dr. Dante Jules Covid-19 PCR (CVDTB)on 02-17 SARS-CoV-2 (COVID-19) RNA PATRICIA+probe Ql (Unsp spec) Not detected Normal NOT DETECTED [facility] Comment on above: Result Comment: When diagnostic testing is negative, the possibility of a false negative should be considered in the context of a patient's recent exposures and the presence of clinical signs and symptoms consistent with SARS-CoV-2. This test is not yet approved or cleared by the [place] Food and Drug Administration (FDA). This test was developed by [employer], [place], [place]. The performance characteristics of this test were validated by The [facility]. The results are not intended to be used as the sole means for clinical diagnosis or patient management decisions. The [facility] is authorized under Clinical Laboratory Improvement Amendments (CLIA) to perform high- complexity testing. Performed By: #### [facility] #### [facility] [address], [place] [address] Dr. Dante Jules Encounters Encounter Date Encounter Type Care Provider Facility Start: 06-05-2023 End: 06-05-2023 ambulatory MARIA LUISA A RUSHER Not Available Start: 05-15-2023 End: 05-15-2023 ambulatory MARIA LUISA A RUSHER Not Available Start: 04-24-2023 End: 04-24-2023 ambulatory MARIA LUISA A RUSHER Not Available Start: 11-30-2022 End: 12-03-2022 ambulatory UNKNOWN PROVIDER Facility:[facility] Start: 11-30-2022 End: 12-03-2022 Patient encounter procedure Dora Alvarado DDS Work Phone: [facility] Start: 10-31-2021 End: 11-01-2021 ambulatory [facility] Facility:[facility] Start: 10-24-2021 End: 10-25-2021 ambulatory [facility] Facility:[facility] Start: 09-29-2021 End: 10-02-2021 Patient encounter procedure Derek Nguyen DDS Work Phone: [facility] Start: 09-27-2021 Telephone encounter Mary Galarza [facility] Pre Surgical Evaluation Comment on above: Pre-surgical Evaluat ion (ANESTHESIA ATTESTATION FOR DENTAL SURGERY SCANNED IN [facility] ) Start: 09-26-2021 Telephone encounter Jenny Rolon RN [facility] Pre Surgical Evaluation Comment on above: Pre-surgical Evaluat ion (DD adult dental restorations 09/29 under [place] at [place]. OSH H+P under digital media strategist. Request to main for anesthesia consent - see future encounter. PSE RN spoke to [facility] confirmed NPO except clears until, [place] address, and 1100 arrival time. ) Start: 09-20-2021 Telephone encounter Radha galarza RN [facility] Pre Surgical Evaluation Comment on above: Pre-surgical Evaluat ion (Pre-op COVID testing not needed) Pre-surgical Evaluat ion (Outside records received) Start: 09-10-2021 Letter encounter [facility] Start: 08-16-2021 End: 08-17-2021 ambulatory [facility] Facility:[facility]1 Start: 03-13-2021 End: 03-14-2021 ambulatory [facility] Facility:[facility] Start: 03-01-2021 End: 03-01-2021 ambulatory [facility] Facility:[facility] Procedures Date Procedure Procedure Detail Performing Clinician Start: 08-16-2021 PSA screening CHAPIN GUNDERSON Comment on above: Performed By: #### V ITAD, PSAD #### [facility] [address] [place] [address] Dr. Dante Jules Start: 12-17-2016 Colonoscopy Plan of Treatment Date Care Activity Detail Author Start: 08-13-2032 Tetanus vaccination Tetanus (T d or Tdap) Booster [facility] Start: 12-17-2026 Screening for malign ant neoplasm of colon [facility] Start: 10-24-2026 Lipid panel Cholesterol [facility] Start: 02-17-2023 Influenza vaccination Influenza Vacc ine (#1) [facility] Start: 11-25-2022 Lipid panel Cholesterol [facility] Start: 09-29-2021 End: 09-29-2021 Admission to same day surgery center 09/29/2021 Surgery Ambulatory Surgery Jozef Clayton, DDS [address] [place] [address] DENTAL RESTORATIONS [facility] Ambulatory Surgery Comment on above: [facility] Start: 09-29-2021 End: 09-29-2021 DENTAL RESTORATIONS [facility] Surgery Center Start: 09-29-2021 Subsequent hospital visit by physician 09/29/2021 Hospital Encounter Ambulatory Surgery Jozef Clayton, DDS [address] [address] [facility] Start: 09-11-2021 COVID-19 Vaccine (4 - Booster for Moderna series) COVID-19 Vaccine (4 - Booster for Moderna series) [facility] Start: 11-24-2020 COVID-19 Vaccine (3 - Booster for Moderna series) COVID-19 Vaccine (3 - Booster for Moderna series) [facility] Start: 06-20-2018 Annual Wellness Visi t (G0439) Annual Wellness Visit (G0439) [facility] Start: 2012 Measurement of occul t blood in single stool specimen FIT [facility] Start: 2007 Screening for malign ant neoplasm of colon [facility] Start: 11-17-1998 Annual wellness visit Annual W ellness Visit (G0438) [facility] Start: 1980 Hepatitis C screening Hepatitis C An tibody [facility] Start: 1980 Tetanus + diphtheria + acellular pertussis vaccine (product) Tdap Booster [facility] Start: 1977 HIV screening HIV Test [facility] Immunizations Immunization Date Immunization Notes Care Provider Fa cility 08-13-2022 tetanus toxoid, redu minesh diphtheria toxoid, and acellular pertussis vaccine, adsorbed Dora Lica DDS Work Phone: [facility] 03-26-2022 influenza, injectabl e, quadrivalent, preservative free Dora Lica DDS Work Phone: [facility] 03-26-2022 influenza virus vacc ine, unspecified formulation Dora Lica DDS Work Phone: [facility] 07-17-2021 Moderna Monovalent ( 12+ yrs) COVID-19 vaccine, mRNA, spike protein, LNP, PF, 100 mcg/0.5 mL ([id number]=[id number]) Dora Alvarado DDS Work Phone: [facility] 03-20-2021 influenza, injectabl e, quadrivalent, preservative free [facility] 06-27-2020 Moderna SARS-COV-2 (COVID-19) vaccine, mRNA, spike protein, LNP, preservative free, 100 mcg/0.5 mL (primary) or 50 mcg/0.25 mL (booster) (UMQ=[id number]) [facility] 05-30-2020 Moderna SARS-COV-2 (COVID-19) vaccine, mRNA, spike protein, LNP, preservative free, 100 mcg/0.5 mL (primary) or 50 mcg/0.25 mL (booster) ([id number]=[id number]) [facility] 03-10-2020 influenza, injectabl e, quadrivalent, preservative free [facility] 04-21-2019 zoster vaccine recombinant [facility] 03-03-2019 influenza, injectabl e, quadrivalent, preservative free [facility] 01-27-2019 zoster vaccine recombinant [facility] 03-06-2018 influenza, injectabl e, quadrivalent, preservative free [facility] 03-06-2017 influenza, injectabl e, quadrivalent, preservative free [facility] 03-01-2017 influenza, injectabl e, quadrivalent, preservative free [facility] 03-05-2016 influenza, injectabl e, quadrivalent, preservative free [facility] 04-17-2013 pneumococcal polysac charide vaccine, 23 valent [facility] 06-20-2011 diphtheria, tetanus toxoids and acellular pertussis vaccine [facility] 04-27-2009 novel influenza-H1N1 -09, injectable [facility] 04-05-2006 pneumococcal polysac charide vaccine, 23 valent [facility] 03-09-1985 tetanus and diphther ia toxoids, adsorbed, preservative free, for adult use (2 Lf of tetanus toxoid and 2 Lf of diphtheria toxoid) [facility] 03-10-1984 tetanus and diphther ia toxoids, adsorbed, preservative free, for adult use (2 Lf of tetanus toxoid and 2 Lf of diphtheria toxoid) [facility] 10-29-1983 measles, mumps and r ubella virus vaccine [facility] 10-29-1983 tetanus and diphther ia toxoids, adsorbed, preservative free, for adult use (2 Lf of tetanus toxoid and 2 Lf of diphtheria toxoid) [facility] Payers Date Payer Category Payer Medicaid [id number] 1997 Medicare [id number] 1962 Unknown [id number] 2.16.84 [id number] 1962 Unknown [id number] 2.16.84 [id number] 1962 Unknown [id number] 2.16.84 [id number] 1962 Unknown [id number] 2.16.84 [id number] 1962 Unknown [id number] 2.16.84 [id number] 1962 Unknown [id number] 2.16. 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 [facility] Start: 1960 Sex Assigned At Male [facility] Start: 08-31-2021 Gender identity Identifies as male gender (finding) [facility] Start: 08-31-2021 Sexual orientation Choose not to dis close [facility] History of Present illness Narrative 11-30-2022 Dora Alvarado DDS - 11/30/2022 10:24 AM EDT Note Date & Type Note Facility 11-30-2022 History of Presen t illness Narrative ----- Wednesday, November 30, 2022 at 1:07:59 PM ----- ----- Provider: [id number] Resident Tamra -- Clinic: [place] ----- OR EVALUATION Patient presents for evaluation to determine best course of treatment due to history of . Moderate MR, Spina Bifida w/Paraplegia, HTN, Anemia, Hydrochephalus, Constipation, Bilateral Hydronephrosis Patient is accompanied by caregiver for today's appointment. Patient partially cooperated for a partial intraoral exam. Clinical findings: Decay and Gingivitis It is best suited that this patient have full comprehensive examination, radiographs and treatment completed in the OR setting. Explained that the patient will be added to our OR waiting list, and the legal guardian will be contacted once a time slot becomes available. Legal Guardian: Vilma Schmitt (Sister) [phone] , verbal consent was taken NOTE: OR request was put in place Next Visit: Dental treatment in the OR ----- Signed on Wednesday, November 30, 2022 at 8:25:31 PM ----- ----- Provider: [id number] Yamini Glass DMD -- Clinic: [place] ----- documented in this encounter [facility] History of Present illness Narrative 09-29-2021 Jozef Clayton DDS - 09/29/2021 7:02 AM EDT Note Date & Type Note Facility 09-29-2021 History of Presen t illness Narrative Surgical Case Number Data Unavailable Operating Room Data Unavailable Preoperative Diagnosis(es): Aggressive behavior Intellectual disability F79 Chronic Periodontitis K05.30 Postoperative Diagnosis(es): Aggressive behavior Intellectual disability F79 Surgeon: Wilma Haskins DDS Nurse Navigator Surgeon: Leslye Guerra DDS Anesthesia: General- Nasal ETT Estimated Blood Loss: Less than 5 cc IV Fluids: 500 cc Urine Output: Not measured. Findings: The patient was brought to the operating room and placed in the supine position on the operating room table. Following satisfactory induction of GA. The patient was intubated with a nasal endotracheal tube. He was then prepped and drapped in the usual sterile fashion for dental procedures. Full mouth series were then taken and an oral examination was completed. A moistened throat pack was then placed. Comprehensive Periodontal examination was done. Heavy build up, supra and subgingival calculus, heavy plaque was noted. 4-6 mm generalized pockets. Full mouth scaling and root planing was then performed. The radiographs were examined by the attending and the resident and used in conjunction with th oral exam to formulate a treatment plan. No restorations No extractions The remaining dentition was then polished with prophy paste. The oral cavity was irrigated and suctioned then the throat pack was removed. Fluoride treament was placed on the remaining dentition. The patient tolerated the procedure well was extubated in the operating room, and taken to the PACU in stable condition. Complications: None Status at end of surgery: Stable Medications: Medications Taking Outpatient Medications Marked as Taking for the 09/29/21 encounter (Hospital Encounter) Medication Sig Dispense Refill * simvastatin (ZOCOR) 10 MG tablet Take 10 mg by mouth every evening. * risperiDONE (RISPERDAL) 0.5 MG tablet Take 0.5 mg by mouth 2 times daily. * oxybutynin (DITROPAN XL) 15 MG XL tablet Take 15 mg by mouth daily. * mirabegron ER (MYRBETRIQ) 50 MG TB24 tablet Take 50 mg by mouth daily. * lorazepam (ATIVAN) 2 MG tablet Take 2 mg by mouth as needed. Take 2 mg one hour prior to appointments, procedures, blood draws or testing * citalopram (CeleXA) 40 MG tablet Take 40 mg by mouth daily. * lisinopril (PRINIVIL, ZESTRIL) 30 MG tablet Take 30 mg by mouth daily. * diltiazem (CARDIZEM CD) 240 MG ER capsule Take 240 mg by mouth daily. Dictated by: Leslye Guerra DDS: Jozef Dillon DDS was present for the critical portions of the procedure. Leslye Guerra DDS 09/29/2021 1:10 PM documented in this encounter [facility] Note 09-27-2021 Telephone Encounter - Mary Anderson RN - 09/27/2021 12:45 PM EDT Note Date & Type Note Facility 09-27-2021 Miscellaneous Notes Please see scanned document in [email or web address]. Anesthesia consent obtained by Dr. Frazier by sister. documented in this encounter [facility] Note 09-20-2021 Telephone Encounter - Radha Martines RN - 09/20/2021 11:48 AM EDT Note Date & Type Note Facility 09-20-2021 Miscellaneous Notes Outside pre-op evaluation received & scanned into [facility]. Medication list updated in [employer]. Scheduled for dental surgery 09/29/2021. documented in this encounter [facility] Note 09-20-2021 Telephone Encounter - Radha Martines RN - 09/20/2021 11:20 AM EDT Note Date & Type Note Facility 09-20-2021 Miscellaneous Notes Patient is vaccinated for COVID-19: Moderna on 05/30/2020 & 06/27/2020. Patient does not require pre-op COVID testing per current guidelines. documented in this encounter [facility] Summary Purpose Family History No Family History Records FoundNo Family History Records FoundNo Family History Records Found Advance Directives No Advanced Directives Records FoundNo Advanced Directives Records FoundNo Advanced Directives Records Found Additional Source Comments Reason for Visit (unrecogniz ed section and content) Reason Onset Date Comments Pre-surgical Evaluation 09/20/2021 Pre-op C OVID testing not needed Reason Onset Date Comments Pre-surgical Evaluation 09/20/2021 Outside records received Reason Onset Date Comments Pre-surgical Evaluation 09/26/2021 DD adult dental restorations 09/29 under GA at [place]. OSH H+P under digital media strategist. Request to main for anesthesia consent - see future encounter. PSE RN spoke to [facility] confirmed NPO except clears until, [place] address, and 1100 arrival time. Reason Onset Date Comments Pre-surgical Evaluation 09/27/2021 ANESTHES IA ATTESTATION FOR DENTAL SURGERY SCANNED IN Epic (unrecognized sect ion and content) No Status Records FoundNo Status Records FoundNo Status Records Found INFORMATION SOURCE (unrecogn ized section and content) DATE CREATED AUTHOR 11/03/2021 [facility] DATE CREATED AUTHOR AUTHOR'S ORGANIZ ATION 12/06/2022 [facility] DATE CREATED AUTHOR AUTHOR'S ORGANIZ ATION 06/06/2023 [facility] FOR RECORDS PERTAINING TO PATIENTS WHO ARE OR HAVE BEEN ENROLLED IN A CHEMICAL DEPENDENCY/SUBSTANCEABUSE PROGRAM, SOME INFORMATION MAY BE OMITTED. This clinical summary was aggregated from multiple sources. Caution should be exercised in using it in the provision of clinical care. This summary normalizes information from multiple sources, and as a consequence, information in this document may materially change the coding, format and clinical context of patient data. In addition, data may be omitted in some cases. CLINICAL DECISIONS SHOULD BE BASED ON THE PRIMARY CLINICAL RECORDS. [facility] [employer] [facility]. provides no warranty or guarantee of the accuracy or completeness of information in this document.
--- NOTE | 2023-06-06 19:53 | ED.MALEGU1 ---
HPI - Male Genitourinary General Chief complaint: Urogenital-Male Stated complaint: Medical Devices Time Seen by Provider: 06/06/23 18:59 Source: caregiver Mode of arrival: walk-in History of Present Illness HPI Narrative: 63-year-old male presents to Emergency Department for a suprapubic catheter not draining and urine leaking through his penis. This appears it started today. He's had a suprapubic catheter for an extended period of time and this particular one for about a month. He is scheduled to have it changed next week. Related Data Allergies Allergy/AdvReac Type Severity Reaction Status Date / Time No Known Drug Allergies Allergy Verified 06/06/23 18:38 Review of Systems ROS Narrative A ten point review of systems is negative except as noted above. Exam Narrative Exam Narrative: Nurses note and vital signs reviewed and patient is not hypoxic. General: The patient appears well and in no apparent distress. Patient is resting comfortably on cart. Skin: Warm, dry, no pallor noted. There is no rash noted. Head: Normocephalic, atraumatic Eye: Normal conjunctiva, no drainage Ears, Nose, Mouth, and Throat: oral mucosa is moist. Nares patent. Cardiovascular: Regular Rate and Rhythm Respiratory: Patient is in no distress, no accessory muscle use, lungs are clear to auscultation, no wheezing, rales or rhonchi GI: soft and nontender. Suprapubic catheter is in place but no urine is in the bag. Musculoskeletal: The patient has no evidence of calf tenderness, no pitting edema, symmetrical pulses noted bilaterally Neurological: awake and alert Psychiatric: Cooperative Constitutional Vital Signs, click to edit/add: Last Vital Signs Temp 98.2 F 06/06/23 18:29 Pulse 85 06/06/23 18:29 Resp 20 06/06/23 18:29 BP 139/66 06/06/23 18:29 Pulse Ox 96 06/06/23 18:29 Course Vital Signs Vital signs: Vital Signs Temperature 98.2 F 06/06/23 18:29 Pulse Rate 85 06/06/23 18:29 Respiratory Rate 20 06/06/23 18:29 Blood Pressure 139/66 06/06/23 18:29 Pulse Oximetry 96 06/06/23 18:29 Temperature 98.2 F 06/06/23 18:29 Pulse Rate 85 06/06/23 18:29 Respiratory Rate 20 06/06/23 18:29 Blood Pressure 139/66 06/06/23 18:29 Pulse Oximetry 96 06/06/23 18:29 MDM - Male Genitourinary MDM Narrative Medical decision making narrative: Catheter has been changed. Findings are discussed with his caregiver Discharge Plan Discharge Chief Complaint: Urogenital-Male Clinical Impression: Barry catheter problem Patient Disposition: Home, Self-Care Time of Disposition Decision: 19:52 Condition: Good Mode of Transportation: Private Vehicle Instructions: Barry Catheter Placement and Care (ED), How to Change a Catheter Drainage Bag (DC) Stand Alone Forms: Portal Instructions Referrals: CHAPIN OSMAN [Primary Care Provider] - 1 week Procedures ED Procedure Instructions Procedures Procedures: and I have removed the old suprapubic catheter. I have placed a new suprapubic catheter, twenty-four Marshallese. The only twenty-four Marshallese catheter that we have available is a three-way Coude. It was placed without difficulty with no complications and appropriate urine draining through the catheter.
[2023-06-06 19:58] VITALS: BP 159/85; PULSE 79; O2SAT 97
== END 2023-06-06 20:26 | disposition home or self-care (01) ==
PROVIDERS: Emergency Provider Emergency Medicine; PCP Nurse Practitioner
DX: Z46.6 Encounter for fitting and adjustment of urinary device (principal)
CPT/HCPCS: 99281

== ENCOUNTER 2023-08-22 06:41 | Outpatient (OUT) | payer MEDICARE, MEDICAID, SELFPAY ==
--- OUTSIDE RECORDS SUMMARY | 2023-08-22 06:43 | XMS_ITS | CCD ---
Author Organization [facility] Care Team Providers Care Scratcher Name Role Phone Unavailable Primary Care Provider Unavailabl e CAST, LYLA Admitting Unavailable CAST, LYLA Attending Unavailable CAST, LYLA Primary Care Unavailable CAST, LYLA Consulting Unavailable CAST, LYLA Admitting Unavailable CAST, LYLA Attending Unavailable CAST, LYLA Primary Care Unavailable CAST, LYLA Consulting Unavailable CAST, LYLA Admitting Unavailable CAST, LYLA Attending Unavailable CAST, LYLA Primary Care Unavailable CAST, LYLA Consulting Unavailable CAST, LYLA Admitting Unavailable CAST, LYLA Attending Unavailable CAST, LYLA Primary Care Unavailable CAST, LYLA Consulting Unavailable CAST, LYLA Admitting Unavailable CAST, LYLA Attending Unavailable CAST, LYLA Primary Care Unavailable CAST, LYLA Consulting Unavailable Unavailable Primary Care Provider Unavailabl e PROVIDER, UNKNOWN Attending Unavailable PROVIDER, UNKNOWN Admitting Unavailable Cast CIRCUS TRAIN SUPERVISOR-SECURITY COORDINATOR, Lyla Nunez Primary Care Provid er CELIO CALI Attending Unavailable CASTLYLA HERRERA Referring Unavailable CAST, LYLA J Primary Care Unavailable MARIA LUISA DEWEY Attending Unavailable RUSHER, MARIA LUISA Ma Attending Unavailable RUSHER, MARIA LUISA Ma Attending Unavailable RUSHER, MARIA LUISA Ma Attending Unavailable RUSHER, MARIA LUISA Ma Attending Unavailable RUSHER, MARIA LUISA Ma Attending Unavailable VINCENZO PALACIOS Attending Unavailable CAST, LYLA Nunez Referring Unavailable CAST, LYLA J Primary Care Unavailable VINCENZO PALACIOS Attending Unavailable CAST, LYLA Nunez Referring Unavailable CAST, LYLA Enrique Primary Care Unavailable VINCENZO PALACIOS Attending Unavailable CAST, LYLA Nunez Referring Unavailable CAST, LYLA J Primary Care Unavailable Medications Current Medications Medication Drug Class(es) Dates Sig (Normalized) Sig (Original) acetaminophen 325 mg oral tablet (13 sources) Start: 12-27-2022 take 2 tablets by mouth every four hours as needed for pain acetaminophen (TYLENOL) 325 mg tablet TAKE 2 TABLETS (650MG) BY MOUTH EVERY 4 HOURS NEEDED FOR PAIN AND/OR TEMP (MAXIMUM LIMIT OF ACETAMINOPHEN FROM ALL SOURCES IS 4000 MG IN 24 HOURS) 60 tablet 11 12/27/2022 Active Start: 09-29-2021 End: 10-05-2021 take 1 tablet by mouth every six hours as needed for pain acetaminophen (TYLENOL) 500 MG tablet Take 1 Tablet by mouth every 6 hours as needed for Pain or Fever for up to 6 days. 24 Tablet 0 09/29/2021 10/05/2021 Active take 2 tablets by mo [facility] every six hours as needed acetaminophen (TYLENOL) 325 mg tablet Take 2 Tablets by mouth every 6 hours as needed. 0 Active amLODIPine 2.5 mg oral tablet (6 sources) Dihydropyridine Calcium Channel Chanda Start: 12-27-2022 take 1 tablet by mouth once daily amLODIPine (NORVASC) 2.5 mg tablet TAKE 1 TABLET BY MOUTH ONCE EVERY DAY 31 tablet 11 12/27/2022 Active ascorbic acid 60 mg / beta carotene 5000 unt / copper sulfate 40 mg / dl-alpha tocopheryl acetate 30 unt / sodium selenite 0.04 mg / zinc oxide 40 mg oral tablet (6 sources) Vitamin C take 1 tablet by mouth once daily Multiple Vitamins-Iron (Multivitamin Plus Iron Adult) TABS Take 1 Tablet by mouth daily. 0 Active bacitracin 0.4 unt/mg / neomycin 0.0035 mg/mg / polymyxin b 5 unt/mg topical ointment (6 sources) Aminoglycoside Antibacterial, Polymyxin-class Antibacterial Start: 01-04-2023 TRIPLE ANTIBIOTIC 3.5mg-400 unit- 5,000 unit/gram ointment APPLY TOPICALLY TO SCRATCHES DAILY NEEDED (DATE, TIME, INITIAL, EFFECT) 28 g 11 01/04/2023 Active carbamide peroxide 65 mg/ml otic solution (6 sources) carbamide peroxide (DEBROX/MURINE) 6.5 % otic solution 3 Drops at bedtime as needed. 0 Active citalopram 40 mg oral tablet (12 sources) Serotonin Reuptake Inhibitor Start: 08-07-2023 take 1 tablet by mouth once daily citalopram (CeleXA) 40 mg tablet Indications: Impulse control disorder TAKE 1 TABLET BY MOUTH ONCE EVERY DAY 31 tablet 11 12/24/2022 Active DERMACERIN cream (6 sources) Start: 12-27-2022 DERMACERIN cream APPLY TOPICALLY TO SITES ON BILATERAL FEET ONCE EVERY DAY (6AM) 106 g 12/27/2022 Active 24 hr dilTIAZem hydrochloride 240 mg extended release oral capsule (14 sources) Calcium Channel Chanda Start: 12-27-2022 take 1 capsule by mouth once daily dilTIAZem CD (CARDIZEM CD) 240 mg 24 hr capsule TAKE 1 CAPSULE BY MOUTH ONCE EVERY DAY 31 capsule 12/27/2022 Active docusate sodium 50 mg / sennosides, residential 8.6 mg oral tablet (6 sources) Start: 12-27-2022 take 2 tablets by mouth once daily at bedtime SENNA PLUS 8.6-50 mg TAKE 2 TABLETS (17.2-100MG) BY MOUTH EVERY NIGHT AT BEDTIME 62 tablet 12/27/2022 Active ferrous sulfate 325 mg oral tablet (12 sources) Start: 12-27-2022 take 1 tablet by mouth once daily at breakfast FeroSuL 325 mg (65 mg iron) tablet TAKE 1 TABLET BY MOUTH ONCE EVERY DAY WITH BREAKFAST 31 tablet 12/27/2022 Active take 1 tablet by mouth once gonzalo y ferrous sulfate 325 (65 Fe) MG tablet Take 325 mg by mouth daily. 0 Active guaiFENesin 20 mg/ml oral solution (12 sources) Start: 12-27-2022 take 10 mL by mouth every six hours as needed for cough CHEST CONGESTION RELIEF 100 mg/5 mL syrup TAKE 10 ML BY MOUTH EVERY 6 HOURS NEEDED FOR COUGH 473 mL 12/27/2022 Active take 200 mg by mouth three times daily as needed guaifenesin (ROBITUSSIN) 100 MG/5ML syru p Take 200 mg by mouth 3 times daily as needed. 0 Active hydrocortisone 25 mg/ml topical cream (12 sources) Corticosteroid Start: 12-27-2022 PROCTOZONE-HC 2.5 % rectal cream APPLY TO RECTAL AREA 2 TIMES DAILY NEEDED FOR HEMORRHOIDS UNTIL RESOLVED (DATE, TIME, INITIAL, EFFECT) 30 g 12/27/2022 Active ammonium lactate 120 mg/ml topical cream (12 sources) ammonium lactate (AMLACTIN) 12 % cream Apply 1 Application topically as needed for dry skin. 0 Active lactobacillus acidophilus 16 mg oral capsule (8 sources) take 1 tablet by mouth three times daily Lactobacillus (ACIDOPHILUS) 100 MG CAPS Take 1 Tab by mouth 3 times daily. 0 Active lactobacillus acidophilus [id number] unt / pectin 100 mg oral capsule (6 sources) Start: 12-27-2022 take 1 capsule by mouth three times daily ACIDOPHILUS-PECTIN 75 million cell -100 mg capsule TAKE 1 CAPSULE BY MOUTH THREE TIMES DAILY (8AM,3PM,8PM) 93 capsule 11 12/27/2022 Active lactulose 667 mg/ml oral solution (15 sources) Osmotic Laxative Start: 05-09-2023 take 15 mL by mouth twice daily lactulose (CHRONULAC) 10 gram/15 mL solution TAKE 15 ML (10GM) BY MOUTH TWICE DAILY 946 mL 11 05/09/2023 Active End: 09-20-2021 take 20 g by mouth twice daily lactulose 10 g/15 mL or al solution Take 20 g by mouth 2 times daily. 0 Active lisinopril 30 mg oral tablet (14 sources) Angiotensin Converting Enzyme Inhibitor Start: 12-27-2022 take 1 tablet by mouth once daily lisinopriL (PRINIVIL,ZESTRIL) 30 mg tablet TAKE 1 TABLET BY MOUTH ONCE EVERY DAY 31 tablet 11 12/27/2022 Active LORazepam 2 mg oral tablet (13 sources) Benzodiazepine Start: 07-08-2023 take 1 tablet by mouth every hour as needed LORazepam (ATIVAN) 2 mg tablet Indications: Anxiety due to invasive procedure , Impulse control disorder , Intellectual disability TAKE 1 TABLET BY MOUTH 1 HR PRIOR TO PHYSICIAN APPTS, PROCEDURES, LAB DRAWS OR DIAGNOSTIC TESTING NEEDED 10 tablet 1 07/08/2023 Active Start: 12-27-2022 End: 07-05-2023 take 1 tablet by mouth every hour as needed LORazepam (ATIVAN) 2 mg tablet Indications: Anxiety due to invasive procedure , Impulse control disorder , Intellectual disability TAKE 1 TABLET BY MOUTH 1 HR PRIOR TO PHYSICIAN APPTS, PROCEDURES, LAB DRAWS OR DIAGNOSTIC TESTING NEEDED 10 tablet 1 12/27/2022 07/05/2023 Discontinued (Reorder) meloxicam 7.5 mg oral tablet (6 sources) Nonsteroidal Anti-inflammatory Drug Start: 11-03-2023 take 1 tablet by mouth in the morning meloxicam (MOBIC) 7.5 mg tablet Indications: Osteoarthritis of multiple joints, unspecified osteoarthritis type Take 1 tablet (7.5 mg total) by mouth in the morning. 30 tablet 03/22/2023 Active menthol 0.0044 mg/mg / zinc oxide 0.206 mg/mg topical ointment (6 sources) Start: 12-27-2022 CALMOSEPTINE 0.44-20.6 % ointment APPLY TOPICALLY TO BUTTOCK TWICE DAILY;APPLY TOPICALLY TO BUTTOCK NEEDED 113 g 12/27/2022 Active miconazole nitrate 20 mg/ml topical spray (6 sources) Azole Antifungal Miconazole Nitr ate 2 % AERO Apply 1 Applicator externally daily. 0 Active 24 hr mirabegron 50 mg extended release oral tablet (12 sources) beta3-Adrenergic Agonist Start: 12-20-2022 take 1 tablet by mouth once daily MYRBETRIQ 50 mg tablet extended release 24 hr TAKE 1 TABLET BY MOUTH ONCE EVERY DAY 31 tablet 12/20/2022 Active multivitamin with iron (TAB-A-KENA/IRON ORAL) (6 sources) multivitamin wit h iron (TAB-A-KENA/IRON ORAL) See Admin Instructions. 0 Active omega-3 acid ethyl esters (residential) 1000 mg oral capsule (6 sources) take 1 g by mouth once daily [id number] (LOVAZA) 1 GM capsule Take 1,000 mg by mouth daily. 0 Active 24 hr oxybutynin chloride 15 mg extended release oral tablet (15 sources) Cholinergic Muscarinic Antagonist Start: 12-20-2022 take 1 tablet by mouth once daily oxybutynin XL (DITROPAN XL) 15 mg 24 hr tablet TAKE 1 TABLET BY MOUTH ONCE EVERY DAY (8PM) 31 tablet 12/20/2022 Active Start: 12-20-2022 End: 09-20-2021 take 1 tablet by mouth once daily oxybutynin XL (DITROPAN XL) 15 mg 24 hr tablet TAKE 1 TABLET BY MOUTH ONCE EVERY DAY (8PM) 31 tablet 12/20/2022 Active polyethylene glycol 3350 24734 mg powder for oral solution (15 sources) Osmotic Laxative Start: 12-27-2022 take 8 [oz_av] by mouth every other day as needed polyethylene glycol (GLYCOLAX) 17 gram/dose powder MIX 17 GRAMS IN 8 OZ OF WATER AND TAKE BY MOUTH NEEDED FOR NO STOOL IN 2 DAYS (DATE, TIME, INITIAL, EFFECT) 238 g 12/27/2022 Active End: 09-20-2021 polyethylene glycol (GLYCOLA X) 17 GM/SCOOP powder Dissolve 17 g in 8 ounces of liquid and drink daily. 0 Active psyllium 2000 mg oral wafer (9 sources) Start: 05-09-2023 psyllium husk, with sugar, (METAMUCIL FIBER THIN) 2 gram wafer Indications: Chronic constipation TAKE 2 WAFERS BY MOUTH ONCE EVERY DAY WITH MORNING MEDS 60 Wafer 05/09/2023 Active End: 09-20-2021 Psyllium (METAMUCIL SUNRISE ORAL) Take by mouth. 0 09/20/2021 Discontinued (Discontinued by another Health Care Provider) Psyllium (METAMU CIL SUNRISE ORAL) Take by mouth. 0 Active risperiDONE 2 mg oral tablet (12 sources) Atypical Antipsychotic Start: 03-21-2023 take 1 tablet by mouth in the morning, then take 1 tablet by mouth at bedtime risperiDONE (RisperDAL) 2 mg tablet Indications: Restlessness and agitation Take 1 tablet (2 mg total) by mouth in the morning and 1 tablet (2 mg total) before bedtime. 60 tablet 03/21/2023 Active take 1 tablet by mouth twice sarah ly risperiDONE (RISPERDAL) 0.5 MG tablet Take 0.5 mg by mouth 2 times daily. 0 Active sennosides, residential 8.6 mg oral tablet (8 sources) take 2 tablets by mouth at bedtime senna (SENOKOT) 8.6 MG TABS tablet Take 2 Tabs by mouth at bedtime. 0 Active simvastatin 10 mg oral tablet (15 sources) HMG-CoA Reductase Inhibitor Start: take 1 tablet by mouth once daily at bedtime simvastatin (ZOCOR) 10 mg tablet TAKE 1 TABLET BY MOUTH EVERY NIGHT AT BEDTIME 31 tablet 12/27/2022 Active Start: 12-27-2022 End: 09-20-2021 take 1 tablet by mouth once daily at bedtime simvastatin (ZOCOR) 10 mg tablet TAKE 1 TABLET BY MOUTH EVERY NIGHT AT BEDTIME 31 tablet 12/27/2022 Active sodium chloride 0.154 meq/ml irrigation solution (6 sources) Start: 12-27-2022 sodium chlorid e, bottle, (NS) 0.9 % irrigation CLEANSE RIGHT FOOT & APPLY MESALT DRESSING ONCE EVERY DAY AFTER SHOWERS (6AM) 500 mL 12/27/2022 Active sodium phosphate, dibasic 59.3 mg/ml / sodium phosphate, monobasic 161 mg/ml enema (6 sources) Start: 12-27-2022 ENEMA DISPOSAB LE 19-7 gram/118 mL enema INSERT 1 SUPPOSITORY RECTALLY NEEDED IF NO BOWEL MOVEMENT AFTER 3 DAYS (DATE, TIME, INITIAL, EFFECT) 266 mL 11 12/27/2022 Active TAB-A-KENA MULTIVITAMIN W-IRON 18-400 mg-mcg tablet (6 sources) Start: 12-27-2022 take 1 tablet by mouth once daily TAB-A-KENA MULTIVITAMIN W-IRON 18-400 mg-mcg tablet Indications: Chronic constipation TAKE 1 TABLET BY MOUTH ONCE EVERY DAY 31 tablet 11 12/27/2022 Active 24 hr divalproex sodium 250 mg extended release oral tablet (6 sources) Mood Stabilizer, Anti-epilepti c Agent Start: 04-04-2023 take 2 tablets by mouth once daily divalproex (DEPAKOTE ER) 250 mg 24 hr tablet Take 2 tablets (500 mg total) by mouth nightly. 60 tablet 04/04/2023 Active water 1000 mg/ml irrigation solution (6 sources) Start: 12-27-2022 sterile water irrigation Indications: Suprapubic catheter (CMS-HCC) USE 30 CC'S TO IRRIGATE KLEIN CATHETER ONCE WEEKLY;USE 30 CC'S TO IRRIGATE KLEIN CATHETER NEEDED (IF NOT USING SOD CHLORIDE) 500 mL 12/27/2022 Active Zinc (4 sources) take 1 tablet by mouth once daily Zinc 50 MG TABS Take 1 Tablet by mouth daily. 0 Active zinc gluconate 50 mg oral tablet (8 sources) Start: 02-27-2023 take 1 tablet by mouth in the morning zinc gluconate 50 mg tablet Indications: Pressure ulcer of right foot, stage 1 Take 1 tablet (50 mg total) by mouth in the morning. 30 tablet 02/27/2023 Active Completed/Discontinued Medications Medication Drug Class(es) Dates [...] take 2 capsules by mouth twice daily [place]-3 1000 MG CAPS Take 2 Caps by mouth 2 times daily. 0 09/20/2021 Discontinued (Discontinued by another Health Care Provider) Multiple Vitamins-Minerals (COMPLETE MULTIVITAMIN/MINERAL) LIQD (3 sources) End: 09-20-2021 take 1 tablet by mouth once daily Multiple Vitamins-Minerals (COMPLETE MULTIVITAMIN/DRIP BOX TENDER AL) LIQD Take 1 Tab by mouth daily. 0 09/20/2021 Discontinued (Discontinued by another Health Care Provider) take 1 tablet by mouth once gonzalo y Multiple Vitamins-Minerals (COMPLETE MULTIVITAMIN/MINERAL) LIQD Take 1 Tab by mouth daily. 0 Active raNITIdine 150 mg oral tablet (3 sources) Histamine-2 Receptor Antagonist End: 09-20-2021 take 1 tablet by mouth twice daily ranitidine (ZANTAC) 150 MG tablet Take 150 mg by mouth 2 times daily. 0 09/20/2021 Discontinued (Discontinued by another Health Care Provider) Problems Active Problems Problem Classification Problem Date Documented Date Episodic/Chronic Anxiety disorders (8 sources) Obsessive-compulsive disorder; 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: [Obsessive-compulsive disorder, unspecified] Onset: 07-23-2022 07-23-2022 Chronic Deficiency and other anemia (1 source) Other iron deficiency anemias; 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: [OTHER IRON DEFICIENCY ANEMIAS] Onset: 11-02-2021 Episodic Developmental disorders (8 sources) Intellectual disability; 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: [Unspecified intellectual disabilities] Onset: 01-10-2017 01-10-2017 Chronic Disorders of lipid metabolism (11 sources) Mixed hyperlipidemia; 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: [Mixed hyperlipidemia] Onset: 05-05-2017 Chronic E Codes: Fall (1 source) Fall; 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: [Unspecified fall, sequela] 07-18-2023 Episodic Essential hypertension (8 sources) Essential (primary) hypertension; 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: [Hypertensive disorder] Onset: 11-05-2016 11-05-2016 Chronic Genitourinary symptoms and ill-defined conditions (9 sources) Suprapubic urinary catheter in situ; 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: [Other cystostomy status] Onset: 04-11-2017 06-11-2023 Chronic Impulse control disorders, NEC (9 sources) Impulse control disorder; 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: [Impulse disorder, unspecified] Onset: 01-10-2017 01-10-2017 Chronic Nervous system congenital anomalies (6 sources) Spina bifida; 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: [Spina bifida, unspecified] Onset: 11-05-2016 11-05-2016 Chronic Nutritional deficiencies (1 source) Vitamin D deficiency, unspecified; 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: [VITAMIN D DEFICIENCY UNSPECIFIED] Onset: 11-02-2021 Chronic Osteoarthritis (1 source) Osteoarthritis of multiple joints ; 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: [Polyosteoarthritis, unspecified] 07-18-2023 Chronic Other diseases of bladder and urethra (7 sources) Spastic neurogenic bladder; 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: [Other neuromuscular dysfunction of bladder] Onset: 11-05-2016 10-16-2022 Chronic Unclassified (3 sources) CONTACT W/AND (SUSP) EXPOS COVID-19; 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: [CONTACT W/AND (SUSP) EXPOS COVID-19] Onset: 03-15-2021 Unclassified (1 source) Bladder Problem Onset: 08-13-2023 Past or Other Problems Problem Classification Problem Date Documented Da te Episodic/Chronic Allergic reactions (6 sources) Psychogenic urticaria; 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: [Other urticaria] Onset: 05-05-2017 Resolved: 07-18-2019 07-18-2019 Episodic Attention-deficit, conduct, and disruptive behavior disorders (6 sources) Aggressive behavior; 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: [Other symptoms and signs involving appearance and behavior] Onset: 09-24-2019 09-24-2019 Episodic Crushing injury or internal injury (6 sources) Injury of rectum with open wound into abdominal cavity; 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: [Unspecified injury of rectum, initial encounter] Onset: 07-01-2019 07-01-2019 Episodic Deficiency and other anemia (6 sources) Anemia; 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: [Anemia, unspecified] Onset: 07-18-2019 07-18-2019 Episodic Disorders of teeth and jaw (8 sources) Dental caries; 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: [Dental caries, unspecified] Onset: 08-02-2021 08-02-2021 Episodic Hemorrhoids (6 sources) Hemorrhoids; 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: [Unspecified hemorrhoids] Onset: 07-01-2019 07-01-2019 Episodic Mood disorders (6 sources) Mood disorders Onset: 10-18-2022 10-18-2022 Other ear and sense organ disorders (6 sources) Excessive cerumen in ear canal ; 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: [Impacted cerumen, bilateral] Onset: 06-03-2017 06-03-2017 Episodic Other gastrointestinal disorders (7 sources) Chronic constipation; 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: [Other constipation] Onset: 01-02-2018 07-06-2019 Episodic Other liver diseases (6 sources) Increased vitamin B; 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: [Abnormal levels of other serum enzymes] Onset: 06-30-2019 06-30-2019 Episodic Other screening for suspected conditions (not mental disorders or infectious disease) (6 sources) Ferritin level low; 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: [Abnormal level of blood mineral] Onset: 06-30-2019 06-30-2019 Episodic Unclassified (1 source) CONTACT W/AND (SUSP) EXPOS COVID-19; 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: [CONTACT W/AND (SUSP) EXPOS COVID-19] Onset: 03-01-2021 Unclassified (6 sources) Onset: 10-25-2022 10-25-2022 Results Test Name Value Interpretation Reference Range Facility Progress Noteson 11-30-2022 Helper/Driver Authentication Interface Message Text ----- Wednesday, November 30, 2022 at 1:07:59 PM ----- ----- Provider: Resident Connie -- Clinic: [facility] ----- OR EVALUATION Patient presents for evaluation [...] becomes available. Legal Guardian: Vilma Schmitt (Sister) [phone] , verbal consent was taken NOTE: OR request was put in place Next Visit: Dental treatment in the OR ----- Signed on Wednesday, November 30, 2022 at 8:25:31 PM ----- ----- Provider: Dena Glass DMD -- Clinic: [facility] ----- Normal [facility] CBC AUTO DIFFon 10-31-2021 BASO # 0.0 103/ul Normal 0.0-0.1 [facility] Comment on above: Performed By: #### C BC #### [facility] [address] [place] [address] Dr. Dante Jules Basophils/100 WBC (Bld) 0.5 % Normal 0.2-2.0 [facility] Comment on above: Performed By: #### C BC #### [facility] [address] [place] [address] Dr. Dante Jules EO # 0.2 103/ul Normal 0.0-0.7 [facility] Comment on above: Performed By: #### C BC #### [facility] [address] [place] [address] Dr. Dante Jules Eosinophils/100 WBC (Bld) 2.3 % Normal 0.9-7.0 [facility] Comment on above: Performed By: #### C BC #### [facility] [address] [address] [address] Dante Jules Erythrocyte distribution width (RBC) [Ratio] 13.6 % Normal 11.0-15.0 [facility] Comment on above: Performed By: #### C BC #### [facility] [address] [place] [address] Dr. Dante Jules Hematocrit (Bld) [Volume fraction] 41.6 % Critically low 42.0-54.0 [facility] Comment on above: Performed By: #### C BC #### [facility] [address] [place] [address] Dr. Dante Jules Hemoglobin (Bld) [Mass/Vol] 13.3 g/dL Critically low 14.0-18.0 [facility] Comment on above: Performed By: #### C BC #### [facility] [address] [place] [address] Dr. Dante Jules IG # 0.01 10e3/ul Normal 0.00-0.03 [facility] Comment on above: Performed By: #### C BC #### [facility] [address] [place] [address] Dr. Dante Jules IG % 0.1 % Normal 0.0-0.5 [facility] Comment on above: Performed By: #### C BC #### [facility] [address] [place] [address] Dr. Dante Jules LYMPH # 1.7 103/ul Normal 1.2-3.8 [facility] Comment on above: Performed By: #### C BC #### [facility] [address] [place] [address] Dr. Dante Jules Lymphocytes/100 WBC (Bld) 21.8 % Normal 20.5-60.0 [facility] Comment on above: Performed By: #### C BC #### [facility] [address] [place] [address] Dr. Dante Jules MANUAL DIFF REQ NO Normal [facility] Comment on above: Performed By: #### C BC #### [facility] [address] [place] [address] Dr. Dante Jules MCH (RBC) [Entitic mass] 29.4 pg Normal 25.9-34.0 [facility] Comment on above: Performed By: #### C BC #### [facility] [address] [place] [address] Dr. Dante Jules MCHC (RBC) [Mass/Vol] 32.0 g/dL Normal 29.9-35.2 [facility] Comment on above: Performed By: #### C BC #### [facility] [address] [place] [address] Dr. Dante Jules MCV (RBC) [Entitic vol] 91.8 fL Normal 80.0-94.0 [facility] Comment on above: Performed By: #### C BC #### [facility] [address] [place] [address] Dr. Dante Jules MONO # 0.6 103/ul Normal 0.3-0.8 [facility] Comment on above: Performed By: #### C BC #### [facility] [address] [address] [address] Dante Jules Monocytes/100 WBC (Bld) 7.8 % Normal 1.7-12.0 [facility] Comment on above: Performed By: #### C BC #### [facility] [address] [place] [address] Dr. Dante Jules NEUT # 5.3 103/ul Normal 1.4-6.5 [facility] Comment on above: Performed By: #### C BC #### [facility] [address] [place] [address] Dr. Dante Jules Neutrophils/100 WBC (Bld) 67.5 % Normal 43.0-75.0 [facility] Comment on above: Performed By: #### C BC #### [facility] [address] [place] [address] Dr. Dante Jules Platelet mean volume (Bld) [Entitic vol] 10.2 fL Normal 9.5-13.5 [facility] Comment on above: Performed By: #### C BC #### [facility] [address] [place] [address] Dr. Dante Jules PLT 191 103/ul Normal 150-450 [facility] Comment on above: Performed By: #### C BC #### [facility] [address] [place] [address] Dr. Dante Jules RBC 4.53 106/ul Critically low 4.70-6.10 [facility] Comment on above: Performed By: #### C BC #### [facility] [address] [place] [address] Dr. Dante Jules WBC 7.9 103/ul Normal 4.0-11.0 [facility] Comment on above: Performed By: #### C BC #### [facility] [address] [address] [address] Dante Jules IRON AND TIBCon 10-24-2021 % SATURATION 19.9 % Normal [facility] Comment on above: Performed By: #### F ETIBC #### [facility] [address] [address] [address] Dante Jules Iron [Mass/Vol] 67.0 ug/dL Normal 65.0-175.0 [facility] Comment on above: Performed By: #### F ETIBC #### [facility] [address] [address] [address] Dante Jules TIBC DIRECT 336.0 ug/dL Normal 250.0-450.0 [facility] Comment on above: Performed By: #### F ETIBC #### [facility] [address] [address] [address] Dante Jules LIPID PROFILEon 10-24-2021 CHOL-HDL RATIO NORM SEE BELOW Normal [facility] Comment on above: Result Comment: 3.3 - 4.4 LOW RISK 4.4 - 7.1 AVERAGE RISK 7.1 - 11.0 MODERATE RISK >11.0 HIGH RISK Performed By: #### L IPID, CMP #### [facility] [address] [place] [address] Dr. Dante Jules Cholesterol [Mass/Vol] 170 mg/dL Normal <=200 [facility] Comment on above: Performed By: #### L IPID, CMP #### [facility] [address] [place] [address] Dr. Dante Jules Cholesterol in HDL [Mass/Vol] 52 mg/dL Normal 40-60 [facility] Comment on above: Performed By: #### L IPID, CMP #### [facility] [address] [place] [address] Dr. Dante Jules Cholesterol in LDL [Mass/Vol] 104.0 mg/dL Normal [facility] Comment on above: Performed By: #### L IPID, CMP #### [facility] [address] [address] [address] Dante Jules Cholesterol.total/C holesterol in HDL [Mass ratio] 3.3 {ratio} Normal [facility] Comment on above: Performed By: #### L IPID, CMP #### [facility] [address] [address] [address] Dante Jules HDL NORMAL > or = 60 mg/dl - LOW CARDIOVASCULAR RISK <40 mg/dl - HIGH CARDIOVASCULAR RISK Normal [facility] Comment on above: Performed By: #### L IPID, CMP #### [facility] [address] [address] [address] Dante Jules LDL CALC NORMAL SEE BELOW Normal [facility] Comment on above: Result Comment: <100 mg/dl OPTIMAL 100 - 129 mg/dl NEAR OR ABOVE OPTIMAL 130 - 159 mg/dl BORDERLINE HIGH 160 - 189 mg/dl HIGH >190 mg/dl VERY HIGH Performed By: #### L IPID, CMP #### [facility] [address] [address] [address] Dante Jules Triglyceride [Mass/Vol] 70 mg/dL Normal <=150 [facility] Comment on above: Performed By: #### L IPID, CMP #### [facility] [address] [address] [address] Dante Jules VLDL CALC 14.0 mg/dL Normal [facility] Comment on above: Performed By: #### L IPID, CMP #### [facility] [address] [place] [address] Dr. Dante Jules PROF 14(COMP METB)on 022 Albumin [Mass/Vol] 3.4 g/dL Normal 3.4-5.0 [facility] Comment on above: Performed By: #### L IPID, CMP #### [facility] [address] [place] [address] Dr. Dante Jules Albumin/Globulin [Mass ratio] 0.8 {ratio} Normal [facility] Comment on above: Performed By: #### L IPID, CMP #### [facility] [address] [place] [address] Dr. Dante Jules ALP [Catalytic activity/Vol] 104 U/L Normal 46-116 [facility] Comment on above: Performed By: #### L IPID, CMP #### [facility] [address] [address] [address] Dante Jules ALT [Catalytic activity/Vol] 31 U/L Normal 16-63 [facility] Comment on above: Performed By: #### L IPID, CMP #### [facility] [address] [address] [address] Dante Jules Anion gap [Moles/Vol] 11.9 mmol/L Normal [facility] Comment on above: Performed By: #### L IPID, CMP #### [facility] [address] [place] [address] Dr. Dante Jules AST [Catalytic activity/Vol] 22 U/L Normal 15-37 [facility] Comment on above: Performed By: #### L IPID, CMP #### [facility] [address] [place] [address] Dr. Dante Jules Bilirubin [Mass/Vol] 0.4 mg/dL Normal 0.2-1.0 [facility] Comment on above: Performed By: #### L IPID, CMP #### [facility] [address] [place] [address] Dr. Dante Jules Calcium [Mass/Vol] 9.0 mg/dL Normal 8.5-10.1 [facility] Comment on above: Performed By: #### L IPID, CMP #### [facility] [address] [place] [address] Dr. Dante Jules Chloride [Moles/Vol] 106 mmol/L Normal 98-107 [facility] Comment on above: Performed By: #### L IPID, CMP #### [facility] [address] [address] [address] Dante Jules CO2 [Moles/Vol] 26.3 mmol/L Normal 21.0-32.0 [facility] Comment on above: Performed By: #### L IPID, CMP #### [facility] [address] [address] [address] Dante Jules Creatinine [Mass/Vol] 1.17 mg/dL Normal 0.70-1.30 [facility] Comment on above: Performed By: #### L IPID, CMP #### [facility] [address] [place] [address] Dr. Dante Jules EGFR-AF GREENLANDIC >60 Normal >=60 [facility] Comment on above: Performed By: #### L IPID, CMP #### [facility] [address] [address] [address] Dante Jules EGFR-NON AF GREENLANDIC >60 Normal >=60 [facility] Comment on above: Performed By: #### L IPID, CMP #### [facility] [address] [address] [address] Dante Jules Globulin (S) [Mass/Vol] 4.2 g/dL Normal [facility] Comment on above: Performed By: #### L IPID, CMP #### [facility] [address] [address] [address] Dante Jules Glucose [Mass/Vol] 95 mg/dL Normal 74-106 [facility] Comment on above: Performed By: #### L IPID, CMP #### [facility] [address] [place] [address] Dr. Dante Jules Potassium [Moles/Vol] 4.2 mmol/L Normal 3.5-5.1 [facility] Comment on above: Performed By: #### L IPID, CMP #### [facility] [address] [place] [address] Dr. Dante Jules Protein [Mass/Vol] 7.6 g/dL Normal 6.4-8.2 [facility] Comment on above: Performed By: #### L IPID, CMP #### [facility] [address] [place] [address] Dr. Dante Jules Sodium [Moles/Vol] 140 mmol/L Normal 136-145 [facility] Comment on above: Performed By: #### L IPID, CMP #### [facility] [address] [place] [address] Dr. Dante Jules Urea nitrogen [Mass/Vol] 22.0 mg/dL Critically high 7.0-18.0 [facility] Comment on above: Performed By: #### L IPID, CMP #### [facility] [address] [address] [address] Dante Jules Urea nitrogen/Creatinine [Mass ratio] 18.8 mg/mg Normal [facility] Comment on above: Performed By: #### L IPID, CMP #### [facility] [address] [place] [address] Dr. Dante Jules CBC AUTO DIFFon 08-16-2021 BASO # 0.0 103/ul Normal 0.0-0.1 [facility] Comment on above: Performed By: #### V ITAD, PSAD #### [facility] [address] [place] [address] Dr. Dante Jules Basophils/100 WBC (Bld) 0.5 % Normal 0.2-2.0 [facility] Comment on above: Performed By: #### V ITAD, PSAD #### [facility] [address] [place] [address] Dr. Dante Jules EO # 0.4 103/ul Normal 0.0-0.7 [facility] Comment on above: Performed By: #### V ITAD, PSAD #### [facility] [address] [place] [address] Dr. Dante Jules Eosinophils/100 WBC (Bld) 5.0 % Normal 0.9-7.0 [facility] Comment on above: Performed By: #### V ITAD, PSAD #### [facility] [address] [place] [address] Dr. Dante Jules Erythrocyte distribution width (RBC) [Ratio] 13.6 % Normal 11.0-15.0 [facility] Comment on above: Performed By: #### V ITAD, PSAD #### [facility] [address] [place] [address] Dr. Dante Jules Hematocrit (Bld) [Volume fraction] 36.4 % Critically low 42.0-54.0 [facility] Comment on above: Performed By: #### V ITAD, PSAD #### [facility] [address] [place] [address] Dr. Dante Jules Hemoglobin (Bld) [Mass/Vol] 11.8 g/dL Critically low 14.0-18.0 [facility] Comment on above: Performed By: #### V ITAD, PSAD #### [facility] [address] [place] [address] Dr. Dante Jules IG # 0.02 10e3/ul Normal 0.00-0.03 [facility] Comment on above: Performed By: #### V ITAD, PSAD #### [facility] [address] [place] [address] Dr. Dante Jules IG % 0.2 % Normal 0.0-0.5 [facility] Comment on above: Performed By: #### V ITAD, PSAD #### [facility] [address] [place] [address] Dr. Dante Jules LYMPH # 2.3 103/ul Normal 1.2-3.8 [facility] Comment on above: Performed By: #### V ITAD, PSAD #### [facility] [address] [place] [address] Dr. Dante Jules Lymphocytes/100 WBC (Bld) 28.0 % Normal 20.5-60.0 [facility] Comment on above: Performed By: #### V ITAD, PSAD #### [facility] [address] [place] [address] Dr. Dante Jules MANUAL DIFF REQ NO Normal [facility] Comment on above: Performed By: #### V ITAD, PSAD #### [facility] [address] [place] [address] Dr. Dante Jules MCH (RBC) [Entitic mass] 29.1 pg Normal 25.9-34.0 [facility] Comment on above: Performed By: #### V ITAD, PSAD #### [facility] [address] [place] [address] Dr. Dante Jules MCHC (RBC) [Mass/Vol] 32.4 g/dL Normal 29.9-35.2 [facility] Comment on above: Performed By: #### V FELICIA, PSAD #### [facility] [address] [place] [address] Dr. Dante Jules MCV (RBC) [Entitic vol] 89.7 fL Normal 80.0-94.0 [facility] Comment on above: Performed By: #### V ITKRYSTLE, PSAD #### [facility] [address] [place] [address] Dr. Dante Jules MONO # 0.7 103/ul Normal 0.3-0.8 [facility] Comment on above: Performed By: #### V ITKRYSTLE, PSAD #### [facility] [address] [place] [address] Dr. Dante Jules Monocytes/100 WBC (Bld) 8.5 % Normal 1.7-12.0 [facility] Comment on above: Performed By: #### V FELICIA, PSAD #### [facility] [address] [place] [address] Dr. Dante Jules NEUT # 4.7 103/ul Normal 1.4-6.5 [facility] Comment on above: Performed By: #### V FELICIA, PSAD #### [facility] [address] [place] [address] Dr. Dante Jules Neutrophils/100 WBC (Bld) 57.8 % Normal 43.0-75.0 [facility] Comment on above: Performed By: #### V ITKRYSTLE, PSAD #### [facility] [address] [place] [address] Dr. Dante Jules Platelet mean volume (Bld) [Entitic vol] 9.9 fL Normal 9.5-13.5 [facility] Comment on above: Performed By: #### V ITKRYSTLE, PSAD #### [facility] [address] [place] [address] Dr. Dante Jules PLT 155 103/ul Normal 150-450 [facility] Comment on above: Performed By: #### V ITKRYSTLE, PSAD #### [facility] [address] [address] [address] Dante Jules RBC 4.06 106/ul Critically low 4.70-6.10 [facility] Comment on above: Performed By: #### V ITKRYSTLE, PSAD #### [facility] [address] [address] [address] Dante Jules WBC 8.0 103/ul Normal 4.0-11.0 [facility] Comment on above: Performed By: #### V FELICIA, PSAD #### [facility] [address] [place] [address] Dr. Dante Jules PROF 14(COMP METB)on 022 Albumin [Mass/Vol] 3.1 g/dL Critically low 3.4-5.0 [facility] Comment on above: Performed By: #### C MP #### [facility] [address] [place] [address] Dr. Dante Jules Albumin/Globulin [Mass ratio] 0.7 {ratio} Normal [facility] Comment on above: Performed By: #### C MP #### [facility] [address] [place] [address] Dr. Dante Jules ALP [Catalytic activity/Vol] 112 U/L Normal 46-116 [facility] Comment on above: Performed By: #### C MP #### [facility] [address] [place] [address] Dr. Dante Jules ALT [Catalytic activity/Vol] 29 U/L Normal 16-63 [facility] Comment on above: Performed By: #### C MP #### [facility] [address] [place] [address] Dr. Dante Jules Anion gap [Moles/Vol] 13.7 mmol/L Normal [facility] Comment on above: Performed By: #### C MP #### [facility] [address] [place] [address] Dr. Dante Jules AST [Catalytic activity/Vol] 15 U/L Normal 15-37 [facility] Comment on above: Performed By: #### C MP #### [facility] [address] [address] [address] Dante Jules Bilirubin [Mass/Vol] 0.2 mg/dL Normal 0.2-1.3 [facility] Comment on above: Performed By: #### C MP #### [facility] [address] [address] [address] Dante Jules Calcium [Mass/Vol] 8.5 mg/dL Normal 8.5-10.1 [facility] Comment on above: Performed By: #### C MP #### [facility] [address] [address] [address] Dante Jules Chloride [Moles/Vol] 104 mmol/L Normal 98-107 [facility] Comment on above: Performed By: #### C MP #### [facility] [address] [place] [address] Dr. Dante Jules CO2 [Moles/Vol] 24.2 mmol/L Normal 22.0-30.0 [facility] Comment on above: Performed By: #### C MP #### [facility] [address] [place] [address] Dr. Dante Jules Creatinine [Mass/Vol] 1.09 mg/dL Normal 0.66-1.25 [facility] Comment on above: Performed By: #### C MP #### [facility] [address] [place] [address] Dr. Dante Jules EGFR-AF GREENLANDIC >60 Normal >=60 [facility] Comment on above: Performed By: #### C MP #### [facility] [address] [address] [address] Dante Jules EGFR-NON AF GREENLANDIC >60 Normal >=60 [facility] Comment on above: Performed By: #### C MP #### [facility] [address] [place] [address] Dr. Dante Jules Globulin (S) [Mass/Vol] 4.2 g/dL Normal [facility] Comment on above: Performed By: #### C MP #### [facility] [address] [address] [address] Dante Jules Glucose [Mass/Vol] 117 mg/dL Critically high 74-106 [facility] Comment on above: Performed By: #### C MP #### [facility] [address] [place] [address] Dr. Dante Jules Potassium [Moles/Vol] 3.9 mmol/L Normal 3.4-5.0 [facility] Comment on above: Performed By: #### C MP #### [facility] [address] [place] [address] Dr. Dante Jules Protein [Mass/Vol] 7.3 g/dL Normal 6.1-8.2 [facility] Comment on above: Performed By: #### C MP #### [facility] [address] [place] [address] Dr. Dante Jules Sodium [Moles/Vol] 138 mmol/L Normal 137-145 [facility] Comment on above: Performed By: #### C MP #### [facility] [address] [place] [address] Dr. Dante Jules Urea nitrogen [Mass/Vol] 22.0 mg/dL Critically high 7.0-18.0 [facility] Comment on above: Performed By: #### C MP #### [facility] [address] [place] [address] Dr. Dante Jules Urea nitrogen/Creatinine [Mass ratio] 20.2 mg/mg Normal [facility] Comment on above: Performed By: #### C MP #### [facility] [address] [place] [address] Dr. Dante Jules VITAMIN D 25 OHon 08-16-2021 VIT D 25-OH 31.9 ng/mL Normal [facility] Comment on above: Performed By: #### V FELICIA PSAD #### [facility] [address] [place] [address] Dr. Dante Jules VIT D RANGES SEE BELOW Normal [facility] Comment on above: Result Comment: <20 ng/mL Vit D deficient 20 - <30 ng/mL Vit D insufficient 30 - 100 ng/mL Vit D sufficient >100 ng/mL Potential Toxicity Performed By: #### V ITAD, PSAD #### [facility] [address] [place] [address] Dr. Dante Jules CBC AUTO DIFFon 03-13-2021 BASO # 0.0 103/ul Normal 0.0-0.1 [facility] Comment on above: Performed By: #### C BC #### [facility] [address] [place] [address] Dr. Dante Jules Basophils/100 WBC (Bld) 0.5 % Normal 0.2-2.0 [facility] Comment on above: Performed By: #### C BC #### [facility] [address] [place] [address] Dr. Dante Jules EO # 0.2 103/ul Normal 0.0-0.7 [facility] Comment on above: Performed By: #### C BC #### [facility] [address] [place] [address] Dr. Dante Jules Eosinophils/100 WBC (Bld) 2.5 % Normal 0.9-7.0 [facility] Comment on above: Performed By: #### C BC #### [facility] [address] [place] [address] Dr. Dante Jules Erythrocyte distribution width (RBC) [Ratio] 13.3 % Normal 11.0-15.0 [facility] Comment on above: Performed By: #### C BC #### [facility] [address] [place] [address] Dr. Dante Jules Hematocrit (Bld) [Volume fraction] 36.9 % Critically low 42.0-54.0 [facility] Comment on above: Performed By: #### C BC #### [facility] [address] [place] [address] Dr. Dante Jules Hemoglobin (Bld) [Mass/Vol] 12.0 g/dL Critically low 14.0-18.0 [facility] Comment on above: Performed By: #### C BC #### [facility] [address] [place] [address] Dr. Dante Jules IG # 0.01 10e3/ul Normal 0.00-0.03 [facility] Comment on above: Performed By: #### C BC #### [facility] [address] [place] [address] Dr. Dante Jules IG % 0.2 % Normal 0.0-0.5 [facility] Comment on above: Performed By: #### C BC #### [facility] [address] [place] [address] Dr. Dante Jules LYMPH # 1.4 103/ul Normal 1.2-3.8 [facility] Comment on above: Performed By: #### C BC #### [facility] [address] [place] [address] Dr. Dante Jules Lymphocytes/100 WBC (Bld) 24.4 % Normal 20.5-60.0 [facility] Comment on above: Performed By: #### C BC #### [facility] [address] [place] [address] Dr. Dante Jules MANUAL DIFF REQ NO Normal [facility] Comment on above: Performed By: #### C BC #### [facility] [address] [place] [address] Dr. Dante Jules MCH (RBC) [Entitic mass] 29.2 pg Normal 25.9-34.0 [facility] Comment on above: Performed By: #### C BC #### [facility] [address] [place] [address] Dr. Dante Jules MCHC (RBC) [Mass/Vol] 32.5 g/dL Normal 29.9-35.2 [facility] Comment on above: Performed By: #### C BC #### [facility] [address] [place] [address] Dr. Dante Jules MCV (RBC) [Entitic vol] 89.8 fL Normal 80.0-94.0 [facility] Comment on above: Performed By: #### C BC #### [facility] [address] [place] [address] Dr. Dante Jules MONO # 0.5 103/ul Normal 0.3-0.8 [facility] Comment on above: Performed By: #### C BC #### [facility] [address] [place] [address] Dr. Dante Jules Monocytes/100 WBC (Bld) 8.3 % Normal 1.7-12.0 [facility] Comment on above: Performed By: #### C BC #### [facility] [address] [place] [address] Dr. Dante Jules NEUT # 3.8 103/ul Normal 1.4-6.5 [facility] Comment on above: Performed By: #### C BC #### [facility] [address] [place] [address] Dr. Dante Jules Neutrophils/100 WBC (Bld) 64.1 % Normal 43.0-75.0 [facility] Comment on above: Performed By: #### C BC #### [facility] [address] [place] [address] Dr. Dante Jules Platelet mean volume (Bld) [Entitic vol] 10.1 fL Normal 9.5-13.5 [facility] Comment on above: Performed By: #### C BC #### [facility] [address] [place] [address] Dr. Dante Jules PLT 161 103/ul Normal 150-450 [facility] Comment on above: Performed By: #### C BC #### [facility] [address] [place] [address] Dr. Dante Jules RBC 4.11 106/ul Critically low 4.70-6.10 [facility] Comment on above: Performed By: #### C BC #### [facility] [address] [place] [address] Dr. Dante Jules WBC 5.9 103/ul Normal 4.0-11.0 [facility] Comment on above: Performed By: #### C BC #### [facility] [address] [place] [address] Dr. Dante Jules PROF 14(COMP METB)on 021 Albumin [Mass/Vol] 3.0 g/dL Critically low 3.5-5.0 [facility] Comment on above: Performed By: #### C MP #### [facility] [address] [place] [address] Dr. Dante Jules Albumin/Globulin [Mass ratio] 0.7 {ratio} Normal [facility] Comment on above: Performed By: #### C MP #### [facility] [address] [place] [address] Dr. Dante Jules ALP [Catalytic activity/Vol] 91 U/L Normal 38-126 [facility] Comment on above: Performed By: #### C MP #### [facility] [address] [place] [address] Dr. Dante Jules ALT [Catalytic activity/Vol] 30 U/L Normal 21-72 [facility] Comment on above: Performed By: #### C MP #### [facility] [address] [place] [address] Dr. Dante Jules Anion gap [Moles/Vol] 10.1 mmol/L Normal [facility] Comment on above: Performed By: #### C MP #### [facility] [address] [place] [address] Dr. Dante Jules AST [Catalytic activity/Vol] 18 U/L Normal 17-59 [facility] Comment on above: Performed By: #### C MP #### [facility] [address] [place] [address] Dr. Dante Jules Bilirubin [Mass/Vol] 0.2 mg/dL Normal 0.2-1.3 [facility] Comment on above: Performed By: #### C MP #### [facility] [address] [place] [address] Dr. Dante Jules Calcium [Mass/Vol] 8.7 mg/dL Normal 8.4-10.2 [facility] Comment on above: Performed By: #### C MP #### [facility] [address] [place] [address] Dr. Dante Jules Chloride [Moles/Vol] 103 mmol/L Normal 98-107 [facility] Comment on above: Performed By: #### C MP #### [facility] [address] [place] [address] Dr. Dante Jules CO2 [Moles/Vol] 25.8 mmol/L Normal 22.0-30.0 [facility] Comment on above: Performed By: #### C MP #### [facility] [address] [address] [address] Dante Jules Creatinine [Mass/Vol] 1.31 mg/dL Critically high 0.66-1.25 [facility] Comment on above: Performed By: #### C MP #### [facility] [address] [address] [address] Dante Jules EGFR-AF GREENLANDIC >60 Normal >=60 [facility] Comment on above: Performed By: #### C MP #### [facility] [address] [address] [address] Dante Jules EGFR-NON AF GREEN[place]IC 56 mL/min/1.73m2 Critically low >=60 [facility] Comment on above: Performed By: #### C MP #### [facility] [address] [address] [address] Dante Jules Globulin (S) [Mass/Vol] 4.2 g/dL Normal [facility] Comment on above: Performed By: #### C MP #### [facility] [address] [address] [address] Dante Jules Glucose [Mass/Vol] 132 mg/dL Critically high 74-106 T [facility] Comment on above: Performed By: #### C MP #### [facility] [address] [address] [address] Dante Jules Potassium [Moles/Vol] 3.9 mmol/L Normal 3.4-5.0 [facility] Comment on above: Performed By: #### C MP #### [facility] [address] [address] [address] Dante Jules Protein [Mass/Vol] 7.2 g/dL Normal 6.1-8.2 [facility] Comment on above: Performed By: #### C MP #### [facility] [address] [address] [address] Dante Jules Sodium [Moles/Vol] 135 mmol/L Critically low 137-145 Th [facility] Comment on above: Performed By: #### C MP #### [facility] [address] [place], [place] [address] Dr. Dante Jules Urea nitrogen [Mass/Vol] 14.0 mg/dL Normal 9.0-20.0 [facility] Comment on above: Performed By: #### C MP #### [facility] [id number] Dante Jules Urea nitrogen/Creatinine [Mass ratio] 10.7 mg/mg Normal [facility] Comment on above: Performed By: #### C MP #### [facility] [address] [address] [address] Dante Jules Covid-19 PCR (CVDTB)on 02-17 SARS-CoV-2 (COVID-19) RNA PATRICIA+probe Ql (Unsp spec) Not detected Normal NOT DETECTED [facility] Comment on above: Result Comment: When diagnostic testing is negative, the possibility of a false negative should be considered in the context of a patient's recent exposures and the presence of clinical signs and symptoms consistent with SARS-CoV-2. This test is not yet approved or cleared by the [place] Food and Drug Administration (FDA). This test was developed by [employer], [place], [place]. The performance characteristics of this test were validated by [facility]. The results are not intended to be used as the sole means for clinical diagnosis or patient management decisions. The [facility] is authorized under Clinical Laboratory Improvement Amendments (CLIA) to perform high- complexity testing. Performed By: #### C VDTB #### [facility] [address] [place] [address] Dr. Dante Jules Vital Signs Date Time Vital Sign Value Performing Clinician Faci lity 07-18-2023 09:07-0500 Body mass index (BMI) [Ratio] 28.9 kg/m2 Lyla RATLIFF Work Phone: [facility] 07-18-2023 09:07-0500 Body temperature 97 [degF] Lyla RATLIFF Work Phone: [facility] 07-18-2023 09:07-0500 Body weight 71.67 kg Lyla Cast CIRCUS TRAIN SUPERVISOR-SECURITY COORDINATOR Work Phone: [facility] 07-18-2023 09:07-0500 Diastolic blood pressure 88 mm[Hg] Lyla Cast CIRCUS TRAIN SUPERVISOR-SECURITY COORDINATOR Work Phone: [facility] 07-18-2023 09:07-0500 Heart rate 78 /min Lyla Cast CIRCUS TRAIN SUPERVISOR-SECURITY COORDINATOR Work Phone: [facility] 07-18-2023 09:07-0500 Respiratory rate 23 /min Lyla Cast CIRCUS TRAIN SUPERVISOR-SECURITY COORDINATOR Work Phone: [facility] 07-18-2023 09:07-0500 Systolic blood pressure 128 mm[Hg] Lylamariely Cast CIRCUS TRAIN SUPERVISOR-SECURITY COORDINATOR Work Phone: [facility] Encounters Encounter Date Encounter Type Care Provider Facility Start: 08-13-2023 End: 08-13-2023 ambulatory IVNCENZO Andrade LISA [facility] Start: 08-13-2023 End: 08-13-2023 ambulatory Vincenzo Palacios MD Work Phone: [facility] Comment on above: Spastic neurogenic b ladder (Primary Dx) Start: 08-09-2023 End: 08-09-2023 ambulatory MARIA LUISA A RUSHER Not Available Start: 07-19-2023 End: 07-19-2023 ambulatory MARIA LUISA A RUSHER Not Available Start: 07-09-2023 Telephone encounter Kelly Vides [facility] Start: 07-09-2023 End: 07-09-2023 ambulatory VINCENZO Andrade LISA [facility] Start: 07-09-2023 End: 07-09-2023 ambulatory Vincenzo Palacios MD Work Phone: [facility] Comment on above: Suprapubic catheter ([facility]) (Primary Dx) Start: 07-05-2023 Refill Lyla herrera CIRCUS TRAIN SUPERVISOR-SECURITY COORDINATOR Work Phone: [facility] Comment on above: 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; Impulse control disorder; Intellectual disability Falls, sequela (Prim rossana Dx); Osteoarthritis of multiple joints, unspecified osteoarthritis type; Primary hypertension; Mixed hyperlipidemia; Chronic constipation; Impulse control disorder Start: 06-27-2023 End: 06-27-2023 ambulatory MARIA LUISA A RUSHER Not Available Start: 06-21-2023 End: 06-21-2023 ambulatory CELIO CALI [facility] Start: 06-16-2023 Letter encounter Elias barney Start: 06-11-2023 End: 06-11-2023 ambulatory VINCENZO PALACIOS [facility] Start: 06-11-2023 End: 06-11-2023 ambulatory Vincenzo Palaciso MD Work Phone: [facility] Comment on above: Suprapubic catheter ([facility]) (Primary Dx) Start: 06-05-2023 End: 06-05-2023 ambulatory MARIA LUISA A RUSHER Not Available Start: 05-15-2023 End: 05-15-2023 ambulatory MARIA LUISA A RUSHER Not Available Start: 04-24-2023 End: 04-24-2023 ambulatory MARIA LUISA A RUSHER Not Available Start: 11-30-2022 End: 12-03-2022 ambulatory UNKNOWN PROVIDER Facility:[facility] Start: 11-30-2022 End: 12-03-2022 Patient encounter procedure Dora Christiano DDS Work Phone: [facility] Start: 10-31-2021 End: 11-01-2021 ambulatory LYLA CAST Facility:[facility] Start: 10-24-2021 End: 10-25-2021 ambulatory LYLA CAST Facility:[facility] Start: 09-29-2021 End: 10-02-2021 Patient encounter procedure Derek Nguyen DDS Work Phone: [facility] Start: 09-27-2021 Telephone encounter Mary Galarza [facility] Pre Surgical Evaluation Comment on above: Pre-surgical Evaluat ion (ANESTHESIA ATTESTATION FOR DENTAL SURGERY SCANNED IN Epic ) Start: 09-26-2021 Telephone encounter Jenny Rolon RN [facility] Pre Surgical Evaluation Comment on above: Pre-surgical Evaluat ion (DD adult dental restorations 09/29 under GA at [facility]. OSH H+P under family law mediator. Request to main for anesthesia consent - see future encounter. PSE RN spoke to [facility] confirmed NPO except clears until, [facility] address, and 1100 arrival time. ) Start: 09-20-2021 Telephone encounter Radha galarza RN [facility] Pre Surgical Evaluation Comment on above: Pre-surgical Evaluat ion (Pre-op COVID testing not needed) Pre-surgical Evaluat ion (Outside records received) Start: 09-10-2021 Letter encounter Elias ector Start: 08-16-2021 End: 08-17-2021 ambulatory LYLA CAST Facility:[facility] Start: 03-13-2021 End: 03-14-2021 ambulatory LYLA CAST Facility:[facility] Start: 03-01-2021 End: 03-01-2021 ambulatory LYLA CAST Facility:[facility] Procedures Date Procedure Procedure Detail Performing Clinician Start: 10-18-2022 Adult depression scr eening assessment Vincenzo Palacios MD Work Phone: Start: 02-15-2022 Colonoscopy Vincenzo bell MD Work Phone: Start: 08-16-2021 PSA screening LYLA GUNDERSON Comment on above: Performed By: #### V ITAD, PSAD #### [facility] [address] [place] [address] Dr. Dante Jules Start: 12-17-2016 Colonoscopy Plan of Treatment Date Care Activity Detail Author Start: 08-13-2032 Tetanus vaccination Tetanus (T d or Tdap) Booster [facility] Start: 02-16-2032 Screening for malign ant neoplasm of colon Colonoscopy [facility] Start: 12-17-2026 Screening for malign ant neoplasm of colon [facility] Start: 10-24-2026 Lipid panel [facility] Start: 07-17-2024 Adult BMI Screening Adult BMI Screen ing [facility] Start: 07-17-2024 Tobacco Screening Tobacco Screening [facility] Start: 03-22-2024 Adult BMI Screening Adult BMI Screen ing [facility] Start: 03-22-2024 Tobacco Screening Tobacco Screening [facility] Start: 10-19-2023 Adult BMI Follow Up Plan Adult BMI Follow Up Plan [facility] Start: 10-19-2023 Depression Screening Depression Scre ening [facility] Start: 09-10-2023 End: 09-10-2023 ambulatory 09/10/2023 9:30 AM EDT Support Visit [facility] [address] [place] [phone] Vincenzo Palacios MD [address] [place] [phone] [facility] Start: 08-13-2023 End: 08-12-2024 ASPIRATION BLADDER INSERT SUPRAPUBIC CATHETER ASPIRATION BLADDER INSERT SUPRAPUBIC CATHETER Procedures Routine Spastic neurogenic bladder Expected: 08/13/2023, Expires: 08/12/2024 [facility] Work Phone: Comment on above: Expected: 08/13/2023 , Expires: 08/12/2024 Start: 08-13-2023 End: 08-13-2023 ambulatory 08/13/2023 9:30 AM EDT Support Visit [facility] [address] [place] [phone] Vincenzo Palacios MD [address] [place] [id number] [facility] Start: 07-09-2023 End: 07-08-2024 ASPIRATION BLADDER INSERT SUPRAPUBIC CATHETER ASPIRATION BLADDER INSERT SUPRAPUBIC CATHETER Procedures Routine Suprapubic catheter ([facility]) Expected: 07/09/2023, Expires: 07/08/2024 [facility] Work Phone: Comment on above: Expected: 07/09/2023 , Expires: 07/08/2024 Start: 07-09-2023 End: 07-09-2023 ambulatory 07/09/2023 9:30 AM EST Support Visit [facility] [address] [place] [address] [place] [phone] Vincenzo Palacios MD [address] [place] [phone] [facility] Start: 07-02-2023 End: 07-02-2023 ambulatory 07/02/2023 9:30 AM EST Support Visit [facility] [address] [place] [address] [address] [facility] [place] [phone] Vincenzo Palacios MD [address] [place] [phone] [facility] Start: 02-17-2023 Influenza vaccination Influenza Vacc ine (#1) [facility] Start: 01-18-2023 COVID-19 Vaccine ( season) COVID-19 Vaccine ( season) [facility] Start: 01-18-2023 Influenza vaccination Influenza Vacc ine (#1) [facility] Start: 11-25-2022 [facility] Start: 2022 RSV vaccine (optiona l 60+ years) RSV vaccine (optional 60+ years) [facility] Start: 09-29-2021 End: 09-29-2021 Admission to same day surgery center 09/29/2021 Surgery Ambulatory Surgery Jozef Clayton DDS [address] [place] [address] DENTAL RESTORATIONS [facility] Ambulatory Surgery Comment on above: DENTAL RESTORATIONS Start: 09-29-2021 End: 09-29-2021 DENTAL RESTORATIONS [facility] Start: 09-29-2021 Subsequent hospital visit by physician 09/29/2021 Hospital Encounter Ambulatory Surgery Jozef Clayton DDS [address] [place] [address] [facility] Start: 09-11-2021 COVID-19 Vaccine (4 - Booster for Moderna series) COVID-19 Vaccine (4 - Booster for Moderna series) [facility] Start: 11-24-2020 COVID-19 Vaccine (3 - Booster for Moderna series) COVID-19 Vaccine (3 - Booster for Moderna series) [facility] Start: 06-20-2018 Annual Wellness Visi t (G0439) Annual Wellness Visit (G0439) [facility] Start: 2012 Measurement of occul t blood in single stool specimen FIT [facility] Start: 2007 Screening for malign ant neoplasm of colon [facility] Start: 11-17-1998 Annual wellness visit Annual W ellness Visit (G0438) [facility] Start: 1980 Hepatitis C screening Hepatitis C [facility]ody [facility] Start: 1980 Tetanus + diphtheria + acellular pertussis vaccine (product) Tdap [facility] Start: 1977 HIV screening HIV Test [facility] Immunizations Immunization Date Immunization Notes Care Provider Fa [facility] 03-22-2023 influenza, injectabl e, quadrivalent, preservative free Vincenzo Palacios MD Work Phone: [facility] 08-13-2022 tetanus toxoid, redu minesh diphtheria toxoid, and acellular pertussis vaccine, adsorbed Dora Lica DDS Work Phone: [facility] 03-26-2022 influenza, injectabl e, quadrivalent, preservative free Dora Lica DDS Work Phone: [facility] 03-26-2022 influenza virus vacc ine, unspecified formulation Dora Lica DDS Work Phone: [facility] 07-17-2021 Moderna Monovalent ( 12+ yrs) COVID-19 vaccine, mRNA, spike protein, LNP, PF, 100 mcg/0.5 mL (EGI=700) Dora Lica DDS Work Phone: [facility] 03-20-2021 influenza, injectabl e, quadrivalent, preservative free [facility] 06-27-2020 COVID-19, mRNA, LNP- S, PF, 30mcg/0.3mL Dose Vincenzo Palacios MD Work Phone: [facility] 06-27-2020 [facility] SARS-COV-2 (COVID-19) vaccine, mRNA, spike protein, LNP, preservative free, 100 mcg/0.5 mL (primary) or 50 mcg/0.25 mL (booster) (DVG=608) [facility] 05-30-2020 COVID-19, mRNA, LNP- S, PF, 30mcg/0.3mL Dose Vincenzo Palacios MD Work Phone: [facility] 05-30-2020 [facility] SARS-COV-2 (COVID-19) vaccine, mRNA, spike protein, LNP, preservative free, 100 mcg/0.5 mL (primary) or 50 mcg/0.25 mL (booster) (TGI=347) [facility] 03-10-2020 influenza, injectabl e, quadrivalent, preservative free [facility] 04-21-2019 zoster vaccine recombinant [facility] 04-21-2019 zoster vaccine, live Vincenzo Palacios MD Work Phone: [facility] 03-03-2019 influenza, injectabl e, quadrivalent, preservative free [facility] 01-27-2019 zoster vaccine recombinant [facility] 01-27-2019 zoster vaccine, live Vincenzo Palacios MD Work Phone: [facility] 03-06-2018 influenza, injectabl e, quadrivalent, preservative free [facility] 03-06-2017 influenza, injectabl e, quadrivalent, preservative free [facility] 03-01-2017 influenza virus vacc ine, unspecified formulation Vincenzo Palacios MD Work Phone: [facility] 03-01-2017 influenza, injectabl e, quadrivalent, preservative free [facility] 03-05-2016 influenza, injectabl e, quadrivalent, preservative free [facility] 04-17-2013 pneumococcal polysaccharide vaccine, 23 valent [facility] 06-20-2011 diphtheria, tetanus toxoids and acellular pertussis vaccine [facility] 04-27-2009 novel influenza-H1N1 -09, injectable [facility] 04-05-2006 pneumococcal polysaccharide vaccine, 23 valent [facility] 07-13-1994 tetanus toxoid, redu minesh diphtheria toxoid, and acellular pertussis vaccine, adsorbed Vincenzo Palacios MD Work Phone: [facility] 03-09-1985 tetanus and diphther ia toxoids, adsorbed, preservative free, for adult use (2 Lf of tetanus toxoid and 2 Lf of diphtheria toxoid) [facility] 03-10-1984 tetanus and diphther ia toxoids, adsorbed, preservative free, for adult use (2 Lf of tetanus toxoid and 2 Lf of diphtheria toxoid) [facility] 10-29-1983 measles, mumps and rubella virus vaccine [facility] 10-29-1983 tetanus and diphther ia toxoids, adsorbed, preservative free, for adult use (2 Lf of tetanus toxoid and 2 Lf of diphtheria toxoid) [facility] Payers Date Payer Category Payer Medicaid [id number] 1997 Medicare [id number] 1962 Unknown [id number] 2.16.84 [id number] 1962 Unknown [id number] 2.16.84 [id number] 1962 Unknown [id number] 2.16.84 0.1.285777.3.579.2.593 1962 Unknown [id number] 2.16.84 0.1.511053.3.579.2.593 1962 Unknown [id number] 2.16.84 0.1.825916.3.579.2.593 1962 Unknown [id number] 2.16. [id number] 1962 Unknown [id number] 2.16.8 40.1.073982.3.579.2.1286 1962 Unknown [id number] 2.16.84 0.1.749145.3.579.2.1259 1962 Unknown [id number] 2.16.84 0.1.960983.3.579.2.1259 1962 Unknown [id number] 2.16.84 0.1.424512.3.579.2.1259 1962 Unknown [id number] 2.16.84 0.1.780927.3.579.2.1259 1962 Unknown [id number] 2.16.840 .1.459383.3.579.2.1259 1962 Unknown [id number] 2.16.840 .1.706304.3.579.2.1259 1962 Unknown [id number] 2.16.8 40.1.791280.3.579.2.1286 1962 Unknown [id number] 2.16.8 40.1.228725.3.579.2.1286 1962 Unknown [id number] 2.16.84 0.1.704520.3.579.2.1286 1957 Medicaid [id number] 1957 Medicare [id number] Social History Date Type Detail Facility Tobacco smoking stat [facility] Tobacco smoking consumption unknown [facility] Start: 1960 Sex Assigned At Male [facility] Start: 08-31-2021 Gender identity Identifies as male gender (finding) [facility] Start: 08-31-2021 Sexual orientation Choose not to disclose [facility] Start: 03-26-2022 Tobacco smoking status NVIS Never smoked tobacco [facility] Start: 03-26-2022 Tobacco use and exposure Smokeless tobacco non-user [facility] Start: 03-22-2023 End: 07-18-2023 Alcohol intake Current non-drinker of alcohol (finding) [facility] Start: 06-30-2020 End: 03-22-[address] [facility] Start: 06-30-2020 End: 03-22-[address] [facility] Adolescent depressio n screening assessment [address] [facility] Start: 1960 Sex Assigned At Not on file [facility] Clinical Notes 09-20-2021 to 08-13-2023 Hope Gonzalez LPN - 08/13/2023 9:30 AM EDTTelephone Encounter - Kelly Vides - 07/09/2023 11:16 AM ESTTelephone Encounter - Kelly Vides - 07/09/2023 11:16 AM EST Note Date & Type Note Facility 08-13-2023 History of Present illness Narrative Patient presents for Suprapubic catheter change with #24 fr Sp catheter attached to leg bag, Caregiver present. Patient prepped and draped and Sp Site cleansed with betadine swabs 2% lidocaine urojet instilled for comfort. # 24 fr Sp klein safely removed and replaced with # 24 fr Sp klein catheter 8 cc's to placement balloon. Sp klein catheter then attached to drainage bag. night bag given. Stoma is clean and dry, no s/s of infection. No drainage or redness at this time. Hope Gonzalez LPN Ordering Doctor: MD Dania Supervising doctor: MD Dania documented in this encounter [facility] 07-09-2023 Miscellaneous Notes Called pt caregiver to schedule next SP catheter change. Should be in about 4 weeks (around 08/06/2023). I asked them to call back at [phone] to schedule. documented in this encounter [facility] 07-09-2023 Telephone encounter Note Called pt caregiver to schedule next SP catheter change. Should be in about 4 weeks (around 08/06/2023). I asked them to call back at [phone] to schedule. [facility] 07-09-2023 History of Present illness Narrative Patient presents for Suprapubic catheter change, Caregiver present. Pt. Is ambulated onto the bed, with # 24 fr Sp catheter attached to leg bag. Patient prepped and draped and Sp Site cleansed with betadine swabs. Stoma looks good, no redness or drainage. No signs of infection at this time. Extra lubrication was used to help with extraction of the SP for comfort. # [address] Sp klein safely removed and replaced with # 24 fr straight Sp klein catheter 8 cc's to placement balloon. Sp klein catheter then attached to drainage bag. Pt. Was then cleaned up. Night bag given to Caregiver. Will call later today to set up a new cath change appointment. Pt. Tolerated the procedure well with no difficulties at this time. Hope Gonzalez LPN Ordering Doctor: MD Dania Supervising doctor: MD Dania documented in this encounter [facility] 07-05-2023 History of Present illness Narrative Patient Name: Uri Valles Date of : 1960 Date of Service: 07/15/2023 Facility: [facility] Uri Valles is a 63 y.o. male seen today at [facility] for Chief Complaint Patient presents with routine follow up . Resides at [facility] Accompanied by RN today. Total care provided by staff, including medication administration. Attends daily workshop Severe cognitive and intellectual delay. Able to verbalize needs in short phrases and facial expressions. Was ordered PT at previous appointment due to falls. RN states never received call for set up. She would like new referral to [facility], request Trixie Shea. Patient is homebound. Request PT in the home. He has not had any recent falls. He was started on Mobic for multiple joint arthritic pain. This has improved his symptoms. Resent visit to [facility] for clogged suprapubic catheter on 06/06/22. This concern has been resolved. Is monitored by urology and has suprapubic catheter changed every 4-[address] Cali, psychiatry, for impulse control behaviors. Moods and behaviors have been at baseline for him. Last seen was 06/21/23 Hypertension This is a chronic problem. The current episode started more than 1 year ago. The problem is controlled. Pertinent negatives include no chest pain, headaches, malaise/fatigue, palpitations or shortness of breath. There are no associated agents to hypertension. Risk factors for coronary artery disease include male gender, obesity, dyslipidemia, family history and sedentary lifestyle. Past treatments include EFRAIN inhibitors and beta blockers. The current treatment provides significant improvement. There are no compliance problems. Hyperlipidemia This is a chronic problem. The current episode started more than 1 year ago. The problem is controlled. Recent lipid tests were reviewed and are variable. Exacerbating diseases include obesity. There are no known factors aggravating his hyperlipidemia. Pertinent negatives include no chest pain or shortness of breath. Current antihyperlipidemic treatment includes statins. The current treatment provides significant improvement of lipids. There are no compliance problems. Constipation This is a chronic problem. The current episode started more than 1 year ago. The problem has been gradually improving since onset. His stool frequency is 2 to 3 times per week. The stool is described as firm. The patient is on a high fiber diet. He does not exercise regularly. There has not been adequate water intake. Pertinent negatives include no anorexia, back pain, difficulty urinating, fever, flatus, hematochezia, melena or rectal pain. Risk factors include immobility and obesity. He has tried enemas, fiber, diet changes, laxatives, stool softeners and mineral oil for the symptoms. The treatment provided moderate relief. His past medical history is significant for neuromuscular disease and psychiatric history. Past Medical History: Diagnosis Date Anemia Anxiety Bilateral impacted cerumen 10/23/2016 Calculus, bladder Cerumen debris on tympanic membrane of both ears 01/29/2017 Colon polyps Hydrocephalus (CMS-HCC) Hydronephrosis Hypertension Neurogenic bladder Restlessness and agitation 01/10/2017 Spina bifida of lumbar spine (CMS-HCC) Stricture, ureter Suprapubic catheter (CMS-HCC) Urinary tract infection Past Surgical History: Procedure Laterality Date BLADDER SURGERY suprapubic catheter placement COLONOSCOPY N/A 02/15/2022 Performed by Imer Box DO at [facility] COLONOSCOPY N/A 12/17/2016 Performed by Imer Box DO at [facility] SPINE SURGERY Family History Problem Relation Age of Onset Hyperlipidemia Mother Hypertension Mother Heart disease Mother Parkinsonism Mother Bipolar disorder Mother Heart failure Father Hyperlipidemia Sister Hypertension Sister Current Outpatient Medications Medication Sig Dispense Refill acetaminophen (TYLENOL) 325 mg tablet TAKE 2 TABLETS (650MG) BY MOUTH EVERY 4 HOURS NEEDED FOR PAIN AND/OR TEMP (MAXIMUM LIMIT OF ACETAMINOPHEN FROM ALL SOURCES IS 4000 MG IN 24 HOURS) 60 tablet 11 ACIDOPHILUS-PECTIN 75 million cell -100 mg capsule TAKE 1 CAPSULE BY MOUTH THREE TIMES DAILY (8AM,3PM,8PM) 93 capsule 11 amLODIPine (NORVASC) 2.5 mg tablet TAKE 1 TABLET BY MOUTH ONCE EVERY DAY 31 tablet 11 ammonium lactate (AMLACTIN) 12 % cream Apply 1 Application topically as needed for dry skin. CALMOSEPTINE 0.44-20.6 % ointment APPLY TOPICALLY TO BUTTOCK TWICE DAILY;APPLY TOPICALLY TO BUTTOCK NEEDED 113 g 11 CHEST CONGESTION RELIEF 100 mg/5 mL syrup TAKE 10 ML BY MOUTH EVERY 6 HOURS NEEDED FOR COUGH 473 mL 11 citalopram (CeleXA) 40 mg tablet TAKE 1 TABLET BY MOUTH ONCE EVERY DAY 31 tablet 11 DERMACERIN cream APPLY TOPICALLY TO SITES ON BILATERAL FEET ONCE EVERY DAY (6AM) 106 g 11 dilTIAZem CD (CARDIZEM CD) 240 mg 24 hr capsule TAKE 1 CAPSULE BY MOUTH ONCE EVERY DAY 31 capsule 11 divalproex (DEPAKOTE ER) 250 mg 24 hr tablet Take 2 tablets (500 mg total) by mouth nightly. 60 tablet 11 ENEMA DISPOSABLE 19-7 gram/118 mL enema INSERT 1 SUPPOSITORY RECTALLY NEEDED IF NO BOWEL MOVEMENT AFTER 3 DAYS (DATE, TIME, INITIAL, EFFECT) 266 mL 11 FeroSuL 325 mg (65 mg iron) tablet TAKE 1 TABLET BY MOUTH ONCE EVERY DAY WITH BREAKFAST 31 tablet 11 lactulose (CHRONULAC) 10 gram/15 mL solution TAKE 15 ML (10GM) BY MOUTH TWICE DAILY 946 mL 11 lisinopriL (PRINIVIL,ZESTRIL) 30 mg tablet TAKE 1 TABLET BY MOUTH ONCE EVERY DAY 31 tablet 11 LORazepam (ATIVAN) 2 mg tablet TAKE 1 TABLET BY MOUTH 1 HR PRIOR TO PHYSICIAN APPTS, PROCEDURES, LAB DRAWS OR DIAGNOSTIC TESTING NEEDED 10 tablet 1 meloxicam (MOBIC) 7.5 mg tablet Take 1 tablet (7.5 mg total) by mouth in the morning. 30 tablet 11 multivitamin with iron (TAB-A-KENA/IRON ORAL) See Admin Instructions. MYRBETRIQ 50 mg tablet extended release 24 hr TAKE 1 TABLET BY MOUTH ONCE EVERY DAY 31 tablet 11 oxybutynin XL (DITROPAN XL) 15 mg 24 hr tablet TAKE 1 TABLET BY MOUTH ONCE EVERY DAY (8PM) 31 tablet 11 polyethylene glycol (GLYCOLAX) 17 gram/dose powder MIX 17 GRAMS IN 8 OZ OF WATER AND TAKE BY MOUTH NEEDED FOR NO STOOL IN 2 DAYS (DATE, TIME, INITIAL, EFFECT) 238 g 11 PROCTOZONE-HC 2.5 % rectal cream APPLY TO RECTAL AREA 2 TIMES DAILY NEEDED FOR HEMORRHOIDS UNTIL RESOLVED (DATE, TIME, INITIAL, EFFECT) 30 g 11 psyllium husk, with sugar, (METAMUCIL FIBER THIN) 2 gram wafer TAKE 2 WAFERS BY MOUTH ONCE EVERY DAY WITH MORNING MEDS 60 Wafer 11 risperiDONE (RisperDAL) 2 mg tablet Take 1 tablet (2 mg total) by mouth in the morning and 1 tablet (2 mg total) before bedtime. 60 tablet 11 SENNA PLUS 8.6-50 mg TAKE 2 TABLETS (17.2-100MG) BY MOUTH EVERY NIGHT AT BEDTIME 62 tablet 11 simvastatin (ZOCOR) 10 mg tablet TAKE 1 TABLET BY MOUTH EVERY NIGHT AT BEDTIME 31 tablet 11 sodium chloride, bottle, (NS) 0.9 % irrigation CLEANSE RIGHT FOOT & APPLY MESALT DRESSING ONCE EVERY DAY AFTER SHOWERS (6AM) 500 mL 11 sterile water irrigation USE 30 CC'S TO IRRIGATE KLEIN CATHETER ONCE WEEKLY;USE 30 CC'S TO IRRIGATE KLEIN CATHETER NEEDED (IF NOT USING SOD CHLORIDE) 500 mL 11 TAB-A-KENA MULTIVITAMIN W-IRON 18-400 mg-mcg tablet TAKE 1 TABLET BY MOUTH ONCE EVERY DAY 31 tablet 11 TRIPLE ANTIBIOTIC 3.5mg-400 unit- 5,000 unit/gram ointment APPLY TOPICALLY TO SCRATCHES DAILY NEEDED (DATE, TIME, INITIAL, EFFECT) 28 g 11 zinc gluconate 50 mg tablet Take 1 tablet (50 mg total) by mouth in the morning. 30 tablet 11 No current facility-administered medications for this visit. Allergies: Patient has no known allergies. Code Status: FULL CODE Review of Systems Reason unable to perform ROS: RN completes ROS due to intellectual delay. Constitutional: Negative for chills, fatigue and fever. HENT: Negative for hearing loss and trouble swallowing. Eyes: Negative for pain and visual disturbance. Respiratory: Negative for cough, chest tightness and shortness of breath. Cardiovascular: Negative for chest pain, palpitations and leg swelling. Gastrointestinal: Negative for blood in stool. Endocrine: Negative for polydipsia, polyphagia and polyuria. Genitourinary: Negative for difficulty urinating, dysuria, flank pain, hematuria, scrotal swelling and testicular pain. Musculoskeletal: Positive for arthralgias. Skin: Negative. Allergic/Immunologic: Negative. Neurological: Negative for seizures, syncope and headaches. Hematological: Does not bruise/bleed easily. Psychiatric/Behavioral: Negative. Objective BP 128/88 Pulse 78 Temp 36.1 C (97 F) (Temporal) Resp 23 Wt 71.7 kg (158 lb) BMI 28.90 kg/m Physical Exam Vitals and nursing note reviewed. Constitutional: General: He is not in acute distress. Appearance: He is well-developed. HENT: Head: Normocephalic and atraumatic. Right Ear: Tympanic membrane and external ear normal. Left Ear: Tympanic membrane and external ear normal. Nose: Nose normal. Mouth/Throat: Mouth: Mucous membranes are moist. Pharynx: No oropharyngeal exudate. Eyes: General: No scleral icterus. Right eye: No discharge. Left eye: No discharge. Conjunctiva/sclera: Conjunctivae normal. Pupils: Pupils are equal, round, and reactive to light. Neck: Vascular: No JVD. Cardiovascular: Rate and Rhythm: Normal rate and regular rhythm. Heart sounds: Normal heart sounds. No murmur heard. No friction rub. No gallop. Pulmonary: Effort: Pulmonary effort is normal. No respiratory distress. Breath sounds: Normal breath sounds. Chest: Chest wall: No tenderness. Abdominal: General: Bowel sounds are normal. There is no distension. Palpations: Abdomen is soft. There is no mass. Tenderness: There is no abdominal tenderness. There is no guarding or rebound. Hernia: No hernia is present. Comments: Suprapubic catheter Musculoskeletal: General: No tenderness. Normal range of motion. Cervical back: Normal range of motion and neck supple. Lymphadenopathy: Cervical: No cervical adenopathy. Skin: General: Skin is warm and dry. Capillary Refill: Capillary refill takes less than 2 seconds. Findings: No rash. Neurological: Mental Status: He is alert. Mental status is at baseline. Deep Tendon Reflexes: Reflexes are normal and symmetric. Psychiatric: Mood and Affect: Mood normal. Behavior: Behavior normal. Thought Content: Thought content normal. Judgment: Judgment normal. Assessment/Plan Summary / Assessment / Plan 1. Falls, sequela 2. Osteoarthritis of multiple joints, unspecified osteoarthritis type 3. Primary hypertension 4. Mixed hyperlipidemia 5. Chronic constipation 6. Impulse control disorder Assessment/Plan Summary / Assessment / Plan 1. HTN Continue lisinopril Continue amlodipine 2.5 mg oral daily. 2. Mixed hyperlipidemia Continue simvastatin 10 mg oral daily 3. Impulse control disorder OCD, impulse control Managed by Dr. Cali, psychiatry 4. Chronic constipation Continue lactulose, Miralax, Senokot, increased fiber diet. 5. Falls Denies recent falls. New orders for PT evaluation and treatment Ordered March 2023. RN relates never received call for set up. She request new referral for [facility]. 6. Osteoarthritis, multiple joints Meloxicam 7.5 mg oral daily Standing order labs as ordered Body mass index is 28.9 kg/m . Patient noted to have elevated BMI and the following intervention(s) were applied: Discussed current weight today. Consider healthy food choices, portion control. Avoid sugary beverages and high concentrated sweets. Routine exercise regimen encouraged. Total time spent was 30 minutes: Preparing to see the patient (e.g., review of tests) Obtaining and/or reviewing separately obtained history Performing a medically appropriate examination and/or evaluation Counseling and educating the patient/family/caregiver Ordering medications, tests, or procedures There are no Patient Instructions on file for this visit. ELECTRONICALLY SIGNED BY: EVY Miner APRN-CNP 07/18/23 0917 documented in this encounter [facility] 06-11-2023 History of Present illness Narrative Pt. Arrives for regular monthly SP cath change with Caregiver present. Caregiver states that The nurse was unable to flush his catheter last (06-06-2023) so he was sent to the ED for treatment. Caregiver also said that They were unable to flush the klein catheter so they decided to change the catheter at the ED. He was still having urinary output, just the klein was unable to be flushed. After bringing Pt. And Caregiver to the treatment room, this nurse decided to look at the SP catheter first. Catheter was flushed with 50 cc NS. Catheter was flushed with no difficulties and an immediate return of NS into the new catheter bag. This nurse decided not to change the SP catheter at this time. The stoma site looks good, no redness, no drainage. No s/s of infection at this time. This nurse recommended flushing two times a week and to call the office if it is unable to be flushed, so we can get him in for an appointment. No questions or concerns at this time. Hope Gonzalez LPN Ordering Doctor: MD Dania Supervising doctor: MD Dania documented in this encounter [facility] 11-30-2022 History of Present illness Narrative ----- Wednesday, November 30, 2022 at 1:07:59 PM ----- ----- Provider: Resident Connie -- Clinic: [facility] ----- OR EVALUATION Patient presents for evaluation [...] becomes available. Legal Guardian: Vilma Schmitt (Sister) [phone] , verbal consent was taken NOTE: OR request was put in place Next Visit: Dental treatment in the OR ----- Signed on Wednesday, November 30, 2022 at 8:25:31 PM ----- ----- Provider: Dena Glass DMD -- Clinic: [facility] ----- documented in this encounter [facility] 09-29-2021 History of Present illness Narrative Surgical Case Number Data Unavailable Operating Room Data Unavailable Preoperative Diagnosis(es): Aggressive behavior Intellectual disability F79 Chronic Periodontitis K05.30 Postoperative Diagnosis(es): Aggressive behavior Intellectual disability F79 Surgeon: Wilma Haskins DDS Drag Out Worker Surgeon: Leslye Guerra DDS Anesthesia: General- Nasal [...] 09/29/2021 1:10 PM documented in this encounter [facility] 09-27-2021 Miscellaneous Notes Please see scanned document in Human Service Technician/[employer] ([employer]). Anesthesia consent obtained by Dr. Frazier by sister. documented in this encounter [facility] 09-20-2021 Miscellaneous Notes Outside pre-op evaluation received & scanned into [employer]. Medication list updated in [employer]. Scheduled for dental surgery 09/29/2021. documented in this encounter [facility] 09-20-2021 Miscellaneous Notes Patient is vaccinated for COVID-19: Moderna on 05/30/2020 & 06/27/2020. Patient does not require pre-op COVID testing per current guidelines. documented in this encounter [facility] Evaluation note Diagnosis Suprapubic catheter (CMS-HCC)- Primary Other cystostomy status [facility] Diagnosis Anxiety due to invasive procedure Impulse control disorder Impulse control disorder, unspecified Intellectual disability Unspecified mental retardation [facility] Diagnosis Suprapubic catheter (CMS-HCC)- Primary Other cystostomy status [facility] Diagnosis Falls, sequela- Primary Osteoarthritis of multiple joints, unspecified osteoarthritis type Primary hypertension Unspecified essential hypertension Mixed hyperlipidemia Chronic constipation Unspecified constipation Impulse control disorder Impulse control disorder, unspecified [facility]* Diagnosis Spastic neurogenic bladder- Primary Neurogenic bladder, NOS [facility]ructions[facility] on filedocumented in this encounter [facility] on filedocumented in this encounter [facility]ructionsNot on filedocumented in this encounter [facility]* Attachments The following attachments cannot be sent through Care Everywhere. * Constipation, Adult ED ([place]) [facility] Purpose Family History No Family History Records FoundNo Family History Records FoundNo Family History Records FoundNo Family History Records FoundNo Family History Records Found Advance Directives No Advanced Directives Records FoundNo Advanced Directives Records FoundNo Advanced Directives Records FoundNo Advanced Directives Records FoundNo Advanced Directives Records Found Reason for Referral Specialty Diagnoses / Procedures Referred By Marie brooks Referred To Contact Diagnoses Suprapubic catheter ([facility]) Procedures Urinary leg bag Vincenzo Palacios MD [address] [place] [address] Referral ID Status Reason Start Date Expiration Date V isits Requested Visits Authorized [id number] Pending Review 06/11/2023 06/10/2024 1 1 Specialty Diagnoses / Procedures Referred By Marie t Referred To Contact Diagnoses Suprapubic catheter ([facility]) Procedures ASPIRATION BLADDER INSERT SUPRAPUBIC CATHETER Vincenzo Palacios MD [address] [place] [id number] Referral ID Status Reason Start Date Expiration Date V isits Requested Visits Authorized [id number] Pending Review 07/09/2023 07/08/2024 1 1 Referral ID Status Reason Start Date Expiration Date V isits Requested Visits Authorized [id number] Pending Review 07/09/2023 07/08/2024 1 1 Specialty Diagnoses / Procedures Referred By Contac t Referred To Contact Rehabilitation Diagnoses Fall, initial encounter Osteoarthritis of multiple joints, unspecified osteoarthritis type Lyla Cast, CIRCUS TRAIN SUPERVISOR-SECURITY COORDINATOR [address] [place] [address] Referral ID Status Reason Start Date Expiration Date Visits Requested Visits Authorized [id number] Pending Review Specialty Services Required 07/18/2023 07/17/2024 1 1 Specialty Diagnoses / Procedures Referred By Contac t Referred To Contact Diagnoses Spastic neurogenic bladder Procedures ASPIRATION BLADDER INSERT SUPRAPUBIC CATHETER Vincenzo Palacios MD [address] [place] [id number] Referral ID Status Reason Start Date Expiration Date V isits Requested Visits Authorized [id number] Pending Review 08/13/2023 08/12/2024 1 1 Specialty Diagnoses / Procedures Referred By Contac t Referred To Contact Diagnoses Spastic neurogenic bladder Procedures Urinary leg bag Vincenzo Palacios MD [address] [place] [id number] Referral ID Status Reason Start Date Expiration Date V isits Requested Visits Authorized [id number] Pending Review 08/13/2023 08/12/2024 1 1 Additional Source Comments Reason for Visit (unrecogniz ed section and content) Reason Onset Date Comments Pre-surgical Evaluation 09/20/2021 Pre-op C OVID testing not needed Reason Onset Date Comments Pre-surgical Evaluation 09/20/2021 Outside records received Reason Onset Date Comments Pre-surgical Evaluation 09/26/2021 DD adult dental restorations 09/29 under GA at [facility]. OSH H+P under family law mediator. Request to main for anesthesia consent - see future encounter. PSE RN spoke to Varsha confirmed NPO except clears until, [facility] address, and 1100 arrival time. Reason Onset Date Comments Pre-surgical Evaluation 09/27/2021 ANESTHES IA ATTESTATION FOR DENTAL SURGERY SCANNED IN Epic Reason Comments Bladder Problem Reason Onset Date Comments Med Refill 07/05/2023 Reason Comments Bladder Problem Reason Comments routine follow up (unrecognized sect ion and content) No Status Records FoundNo Status Records FoundNo Status Records FoundNo Status Records FoundNo Status Records Found INFORMATION SOURCE (unrecogn ized section and content) DATE CREATED AUTHOR 11/03/2021 [facility] DATE CREATED AUTHOR AUTHOR'S ORGANIZ ATION 12/06/2022 [facility] DATE CREATED AUTHOR AUTHOR'S ORGANIZ ATION 06/23/2023 [facility] DATE CREATED AUTHOR AUTHOR'S ORGANIZ ATION 08/10/2023 [facility] DATE CREATED AUTHOR AUTHOR'S ORGANIZ ATION 08/14/2023 [facility] Care Teams (unrecognized sec tion and content) Scratcher Relationship Specialty Start Date End Date Lyla Cast APRN-CNP [address] [place] [address] PCP - General Nurse Practitioner 03/19/17 Scratcher Relationship Specialty Start Date End Date Lyla Cast APRN-CNP [address] [place] [address] PCP - General Nurse Practitioner 03/19/17 Scratcher Relationship Specialty Start Date End Date Lyla Cast APRN-CNP [address] [place] [address] PCP - General Nurse Practitioner 03/19/17 Scratcher Relationship Specialty Start Date End Date [facility]is Caste [facility] [address] [place] [address] PCP - General Nurse Practitioner 03/19/17 Scratcher Relationship Specialty Start Date End Date Karis Castdesire Nunez [facility] [address] [place] [address] PCP - General Nurse Practitioner 03/19/17 Scratcher Relationship Specialty Start Date End Date Karis Castdesire Nunez [facility] [address] [place] [address] PCP - General Nurse Practitioner 03/19/17 FOR RECORDS PERTAINING TO PATIENTS WHO ARE [...] BE BASED ON THE PRIMARY CLINICAL RECORDS. [facility] provides no warranty or guarantee of the accuracy or completeness of information in this document.
[2023-08-22 07:40] LABS: Basophils Absolute Auto 0.1 10^3/uL (0.0-0.1); Basophils Percent Auto 0.8 % (0.2-2.0); Eosinophils Absolute Auto 0.1 10^3/uL (0.0-0.7); Hematocrit 38.4 % (42.0-54.0); Hemoglobin 12.1 g/dL (14.0-18.0); Immature Granulocytes Abs Auto 0.01 10^3/uL (0.00-0.03); Immature Granulocytes Pct Auto 0.2 % (0.0-0.5); Lymphocytes Absolute Auto 1.5 10^3/uL (1.2-3.8); Lymphocytes Percent Auto 24.4 % (20.5-60.0); Mean Corpuscular HGB Conc 31.5 g/dL (29.9-35.2); Mean Corpuscular Hemoglobin 29.8 pg (25.9-34.0); Mean Corpuscular Volume 94.6 fL (80.0-94.0); Mean Platelet Volume 10.4 fL (9.5-13.5); Monocytes Absolute Auto 0.7 10^3/uL (0.3-0.8); Monocytes Percent Auto 12.1 % (1.7-12.0); Neutrophils Absolute Auto 3.7 10^3/uL (1.4-6.5); Neutrophils Percent Auto 60.5 % (43.0-75.0); Platelet Count 170 10^3/uL (150-450); Red Blood Count 4.06 10^6/uL (4.70-6.10); Red Cell Distribution Width 13.6 % (11.0-15.0); White Blood Count 6.1 10^3/uL (4.0-11.0)
[2023-08-22 09:04] LABS: Alanine Aminotransferase 23 U/L (16-63); Albumin Globulin Ratio 0.7; Albumin Level 3.1 g/dL (3.4-5.0); Alkaline Phosphatase 84 U/L (46-116); Anion Gap 14.9; Aspartate Amino Transferase 11 U/L (15-37); BUN Creatinine Ratio 14.9; Bilirubin Total 0.3 mg/dL (0.2-1.0); Calcium 9.6 mg/dL (8.5-10.1); Carbon Dioxide 27.2 mmol/L (21.0-32.0); Chloride 105 mmol/L (98-107); Estimated GFR (African America >60 (>=60); Estimated GFR (Non-African Ame 51 (>=60); Globulin 4.3 g/dL; Glucose 87 mg/dL (74-106); Potassium 4.1 mmol/L (3.5-5.1); Sodium 143 mmol/L (136-145); Total Protein 7.4 g/dL (6.4-8.2)
[2023-08-22 09:14] LABS: Prostate Specific Antigen Scrn 0.96 ng/mL (<=4.00)
== END 2023-08-22 06:42 | disposition home or self-care (01) ==
LOC: LAB 06:41
PROVIDERS: PCP Nurse Practitioner; Visit Provider Nurse Practitioner
DX: E78.2 Mixed hyperlipidemia (principal); D50.8 Other iron deficiency anemias; I10 Essential (primary) hypertension; E55.9 Vitamin D deficiency, unspecified
CPT/HCPCS: 36415; 80053; 82306; 85025; G0103

== ENCOUNTER 2024-07-15 07:05 | Outpatient (OUT) | payer MEDICARE, MEDICAID, SELFPAY ==
--- OUTSIDE RECORDS SUMMARY | 2024-07-15 07:09 | XMS_ITS | CCD ---
Author Organization [facility] Care Team Providers Care Web Development Director Name Role Phone Unavailable Primary Care Provider Unavailabl e CAST, CHAPIN Admitting Unavailable CAST, CHAPIN Attending Unavailable CAST, CHAPIN Primary Care Unavailable CAST, CHAPIN Consulting Unavailable CAST, CHAPIN Admitting Unavailable CAST, CHAPIN Attending Unavailable CAST, CHAPIN Primary Care Unavailable CAST, CHAPIN Consulting Unavailable CAST, CHAPIN Admitting Unavailable CAST, CHAPIN Attending Unavailable CAST, CHAPIN Primary Care Unavailable CAST, CHAPIN Consulting Unavailable CAST, CHAPIN Admitting Unavailable CAST, CHAPIN Attending Unavailable CAST, CHAPIN Primary Care Unavailable CAST, CHAPIN Consulting Unavailable CAST, CHAPIN Admitting Unavailable CAST, CHAPIN Attending Unavailable CAST, CHAPIN Primary Care Unavailable CAST, CHAPIN Consulting Unavailable Unavailable Primary Care Provider Unavailabl e PROVIDER, UNKNOWN Attending Unavailable PROVIDER, UNKNOWN Admitting Unavailable Mariano BAIG, Ricky Lima Primary Care Provider [phone] Cast MAGAN, Chapin Unavailable CELIO CALI Attending Unavailable CASTBONNIECHAPIN J Referring Unavailable CAST, CHAPIN J Primary Care Unavailable CELIO CALI Referring Unavailable CSAT, CHAPIN Enrique Primary Care Unavailable CELIO CALI Attending Unavailable CHAPIN CAST Referring Unavailable CAST, CHAPIN J Primary Care Unavailable CELIO CALI Attending Unavailable CAST, CHAPIN J Referring Unavailable CAST, CHAPIN J Primary Care Unavailable Cast COMPENSATION VICE PRESIDENT-CELLO TEACHERChapin Primary Care Provid er CHAPIN CAST Referring Unavailable CAST, CHAPIN J Primary Care Unavailable CAST, CHAPIN J Referring Unavailable CAST, CHAPIN J Primary Care Unavailable LISAGISELA PICKENS Attending Unavailable CAST, CHAPIN J Referring Unavailable CAST, CHAPIN J Primary Care Unavailable LISA, GISELA Andrade Attending Unavailable CAST, CHAPIN J Referring Unavailable CAST, CHAPIN J Primary Care Unavailable LISA, GISELA Andrade Attending Unavailable CAST, CHAPIN J Referring Unavailable CAST, CHAPIN J Primary Care Unavailable CAST, CHAPIN J Referring Unavailable CAST, CHAPIN J Primary Care Unavailable CAST, CHAPIN J Attending Unavailable LISA, GISELA Andrade Attending Unavailable CAST, CHAPIN J Referring Unavailable CAST, CHAPIN J Primary Care Unavailable LISA, GISELA Andrade Attending Unavailable CAST, CHAPIN J Referring Unavailable CAST, CHAPIN J Primary Care Unavailable LISA, GISELA Andrade Attending Unavailable CAST, CHAPIN J Referring Unavailable CAST, CHAPIN J Primary Care Unavailable CAST, CHAPIN J Attending Unavailable CAST, CHAPIN J Referring Unavailable CAST, CHAPIN J Primary Care Unavailable ANNETTE MILLS Attending Unavailable CAST, CHAPIN J Referring Unavailable CAST, CHAPIN J Primary Care Unavailable LISA, GISELA Andrade Attending Unavailable CAST, CHAPIN J Referring Unavailable CAST, CHAPIN J Primary Care Unavailable LISAGISELA PICKENS Attending Unavailable CAST, CHAPIN J Referring Unavailable CAST, CHAPIN J Primary Care Unavailable ANNETTE MILLS Attending Unavailable CAST, CHAPIN J Referring Unavailable CAST, CHAPIN J Primary Care Unavailable CAST, CHAPIN J Attending Unavailable CAST, CHAPIN J Referring Unavailable CAST, CHAPIN J Primary Care Unavailable CAST, CHAPIN J Referring Unavailable CAST, CHAPIN J Primary Care Unavailable CAST, CHAPIN J Attending Unavailable LISA, GISELA Andrade Attending Unavailable CAST, CHAPIN J Referring Unavailable CAST, CHAPIN J Primary Care Unavailable LISAGISELA PICKENS Attending Unavailable CAST, CHAPIN J Referring Unavailable CAST, CHAPIN J Primary Care Unavailable LISAGISELA PICKENS Attending Unavailable CAST, CHAPIN J Referring Unavailable CAST, CHAPIN J Primary Care Unavailable ANNETTE MILLS Attending Unavailable CAST, CHAPIN J Referring Unavailable CAST, CHAPIN J Primary Care Unavailable RUSHER, MARIA LUISA A Attending Unavailable RUSHER, MARIA LUISA A Attending Unavailable RUSHER, MARIA LUISA A Attending Unavailable RUSHER, MARIA LUISA A Attending Unavailable RUSHER, MARIA LUISA A Attending Unavailable RUSHER, MARIA LUISA A Attending Unavailable RUSHER, MARIA LUISA A Attending Unavailable RUSHER, MARIA LUISA A Attending Unavailable RUSHER, MARIA LUISA A Attending Unavailable RUSHER, MARIA LUISA A Attending Unavailable RUSHER, MARIA LUISA A Attending Unavailable RUSHER, MARIA LUISA A Attending Unavailable RUSHER, MARIA LUISA A Attending Unavailable RUSHER, MARIA LUISA A Attending Unavailable RUSHER, MARIA LUISA A Attending Unavailable RUSHER, MARIA LUISA A Attending Unavailable RUSHER, MARIA LUISA A Attending Unavailable RUSHER, MARIA LUISA A Attending Unavailable RUSHER, MARIA LUISA A Attending Unavailable RUSHER, MARIA LUISA A Attending Unavailable RUSHER, MRAIA LUISA A Attending Unavailable RUSHER, MARIA LUISA A Attending Unavailable Medications Current Medications Medication Drug Class(es) Dates Sig (Normalized) Sig (Original) acetaminophen 325 mg oral tablet (20 sources) Start: 12-27-2022 take 2 tablets by [...] days. 24 Tablet 0 09/29/2021 10/05/2021 Active Start: 08-03-2019 take 650 mg by mouth every six hours Acetaminophen Active 650 MG PO Q6H August 03, 2019 12:00am acetaminophen (T ylenol) 325 MG tablet Take by mouth. Active take 2 tablets by mo uth every six hours as needed acetaminophen (TYLENOL) 325 mg tablet Take 2 Tablets by mouth every 6 hours as needed. 0 Active amLODIPine 2.5 mg oral tablet (20 sources) Dihydropyridine Calcium Channel Chanda Start: 01-09-2024 Amlodipine Active MG PO January 09, 2024 12:00am Start: 12-27-2022 End: 12-31-2023 take 1 tablet by mouth once daily amLODIPine (NORVASC) 2.5 mg tablet take 1 tablet by mouth once every day 31 tablet 11 12/31/2023 Active ascorbic acid 60 mg / beta carotene 5000 unt / copper sulfate 40 mg / dl-alpha tocopheryl acetate 30 unt / sodium selenite 0.04 mg / zinc oxide 40 mg oral tablet (6 sources) Vitamin C take 1 tablet by mouth once daily Multiple Vitamins-Iron (Multivitamin Plus Iron Adult) TABS Take 1 Tablet by mouth daily. 0 Active bacitracin zinc 0.5 unt/mg topical ointment (20 sources) bacitracin 500 UNIT/GM ointment Apply topically 2 (two) times a day. Active bacitracin 0.4 unt/mg / neomycin 0.0035 mg/mg / polymyxin b 5 unt/mg topical ointment (20 sources) Aminoglycoside Antibacterial, Polymyxin-class Antibacterial Start: 01-05-20 TRIPLE ANTIBIOTIC 3.5mg-400 unit- 5,000 unit/gram ointment APPLY TOPICALLY TO SCRATCHES DAILY NEEDED (DATE, TIME, INITIAL, EFFECT) 28 g 01/04/2023 Active carbamide peroxide 65 mg/ml otic solution (20 sources) carbamide peroxi de (Debrox) 6.5 % otic solution 5 drops in the morning and 5 drops before bedtime. Active carbamide peroxi de (DEBROX/MURINE) 6.5 % otic solution 3 Drops at bedtime as needed. 0 Active cephalexin 500 mg oral capsule (2 sources) Cephalosporin Antibacterial Start: 08-03-2019 take 2 capsules by mouth twice daily Cephalexin (Keflex) 500 mg capsule Active 1000 MG PO Twice daily 14 12August 03, 2019 12:00am citalopram 40 mg oral tablet (20 sources) Serotonin Reuptake Inhibitor Start: 08-03-2019 take 1 tablet by mouth in the morning citalopram (CeleXA) 40 mg tablet Indications: Other obsessive-compul sive disorders Take 1 tablet (40 mg total) by mouth in the morning. 31 tablet 12/20/2023 Active citalopram (Deanna XA) 20 MG tablet Take by mouth. Active citalopram (Deanna XA) 40 MG tablet Take 20 mg by mouth. Active DERMACERIN cream (20 sources) Start: 12-27-2022 DERMACERIN cream APPLY TOPICALLY TO SITES ON BILATERAL FEET ONCE EVERY DAY (6AM) 106 g 11 12/27/2022 Active dextromethorphan hydrobromide 1.5 mg/ml oral solution (20 sources) Uncompetitive J-zknfik-G-asparta te Receptor Antagonist, Sigma-1 Agonist take 7.5 mg by mouth every six hours as needed for cough dextromethorphan 7.5 MG/5ML syrup Take 7.5 mg by mouth every 6 (six) hours if needed for cough. Active 24 hr dilTIAZem hydrochloride 240 mg extended release oral capsule (20 sources) Calcium Channel Chanda Start: 08-03-2019 End: 12-31-2023 take 1 capsule by mouth once daily dilTIAZem CD (CARDIZEM CD) 240 mg 24 hr capsule TAKE 1 CAPSULE BY MOUTH ONCE EVERY DAY 31 capsule 12/31/2023 Active docusate sodium 50 mg / sennosides, senior living 8.6 mg oral tablet (20 sources) Start: 12-27-2022 End: 12-31-2023 take 2 tablets by mouth once daily at bedtime SENNA PLUS 8.6-50 mg TAKE 2 TABLETS (17.2-100MG) BY MOUTH EVERY NIGHT AT BEDTIME 62 tablet 12/31/2023 Active Start: 08-03-2019 take 2 tablets by mo uth once daily at bedtime Sennosides-Docusate Sodium (Senna With Docusate Sodium) 8.6-50 mg Tablet Active 2 TAB-CAP PO Daily at bedtime August 03, 2019 12:00am take 8.6-50 mg by mo uth in the morning senna-docusate (Fatimah-Colace) 8.6-50 MG tablet Take 1 tablet by mouth in the morning. Active ferrous sulfate 325 mg oral tablet (20 sources) Start: 12-27-2022 End: 12-31-2023 take 1 tablet by mouth once daily at breakfast FeroSuL 325 mg (65 mg iron) tablet TAKE 1 TABLET BY MOUTH ONCE EVERY DAY WITH BREAKFAST 31 tablet 12/31/2023 Active Start: 08-03-2019 take 325 mg by mouth once gonzalo y Ferrous Sulfate Active 325 MG PO Daily August 03, 2019 12:00am guaiFENesin 20 mg/ml oral solution (20 sources) Start: 12-27-2022 take 10 mL by mouth every six hours as needed for cough CHEST CONGESTION RELIEF 100 mg/5 mL syrup TAKE 10 ML BY MOUTH EVERY 6 HOURS NEEDED FOR COUGH 473 mL 12/27/2022 Active take 200 mg by mouth three times daily as needed for cough guaiFENesin (Robitussin) 100 MG/5ML liqu id Take 200 mg by mouth 3 (three) times a day as needed for cough. Active hydrocortisone 25 mg/ml topical cream (20 sources) Corticosteroid Start: 12-27-2022 PROCTOZONE-HC 2.5 % rectal cream APPLY TO RECTAL AREA 2 TIMES DAILY NEEDED FOR HEMORRHOIDS UNTIL RESOLVED (DATE, TIME, INITIAL, EFFECT) 30 g 12/27/2022 Active hydrocortisone ( Proctozone-HC) 2.5 % rectal cream Insert into the rectum 2 (two) times a day Active sodium hypochlorite 2.5 mg/m l topical solution (2 sources) Start: 08-03-2019 Sodium Hypochl orite (Hysept) 0.25 % Solution Active 1 APPLIC TOPICAL Daily August 03, 2019 12:00am ammonium lactate 120 mg/ml topical cream (20 sources) ammonium lactate (AMLACTIN) 12 % cream Apply 1 Application topically as needed for dry skin. Active ammonium lactate (Lac-Hydrin) 12 % lotion Apply topically if needed for dry skin. Active Lactobacillus (20 sources) Lactobacillus (ACIDOPHILUS PO) Take by mouth. Active Lactobacillus acidophilus (10 sources) Start: 08-03-2019 take 1 tablet by mouth once daily Lactobacillus Acidophilus (Acidophilus) Tablet,Chewable Active 1 TAB PO Daily August 03, 2019 12:00am take 1 tablet by heri th three times daily Lactobacillus (ACIDOPHILUS) 100 MG CAPS Take 1 Tab by mouth 3 times daily. 0 Active lactobacillus acidophilus [id number] unt / pectin 10 mg oral capsule (20 sources) Start: 11-30-2023 take 1 capsule by mouth three times daily acidophilus-pectin, citrus 100 million cell-10 mg capsule TAKE 1 CAPSULE BY MOUTH THREE TIMES DAILY (8AM,3PM,8PM) 93 capsule 11 11/30/2023 Active Start: 12-27-2022 End: 11-30-2023 take 1 capsule by mouth three times daily ACIDOPHILUS-PECTIN 75 million cell -100 mg capsule TAKE 1 CAPSULE BY MOUTH THREE TIMES DAILY (8AM,3PM,8PM) 93 capsule 11 12/27/2022 11/30/2023 Discontinued (Duplicate Listing) lactulose 667 mg/ml oral solution (20 sources) Osmotic Laxative Start: 05-09-2023 End: 05-11-2024 take 15 mL by mouth twice daily lactulose (CHRONULAC) 10 gram/15 mL solution TAKE 15 ML (10GM) BY MOUTH TWICE DAILY 946 mL 10 05/11/2024 Active Start: 08-03-2019 take 10 g by mouth twice daily Lactulose Active 10 GM PO Twice daily August 03, 2019 12:00am End: 09-20-2021 take 20 g by mouth in the morning, then take 20 g by mouth in the evening, then take 20 g by mouth at bedtime lactulose (Chronulac) 10 GM/15ML solution Take 20 g by mouth in the morning and 20 g in the evening and 20 g before bedtime. Active LACTULOSE ENCEPHALOPATHY PO (20 sources) LACTULOSE ENCEPHALOPATHY PO Take by mouth. Active lanolin 0.157 mg/mg / menthol 0.0044 mg/mg / petrolatum 0.24 mg/mg / zinc oxide 0.206 mg/mg topical ointment (20 sources) Menthol-Zinc Oxi de (Calmoseptine) 0.44-20.6 % ointment Apply topically Active lisinopril 30 mg oral tablet (20 sources) Angiotensin Converting Enzyme Inhibitor Start: 020 End: 024 take 1 tablet by mouth once daily lisinopriL (PRINIVIL,ZESTRIL) 30 mg tablet take 1 tablet by mouth once every day 31 tablet 11 12/31/2023 Active LORazepam 2 mg oral tablet (20 sources) Benzodiazepine Start: 025 take 1 tablet by mouth every hour as needed LORazepam (ATIVAN) 2 mg tablet Indications: Anxiety due to invasive procedure , Impulse control disorder , Intellectual disability TAKE 1 TABLET BY MOUTH 1 HR PRIOR TO PHYSICIAN APPTS, PROCEDURES, LAB DRAWS OR DIAGNOSTIC TESTING NEEDED 10 tablet 1 05/25/2024 Active Start: 07-08-2023 End: 05-22-2024 take 1 tablet by mouth every hour as needed LORazepam (ATIVAN) 2 mg tablet Indications: Anxiety due to invasive procedure , Impulse control disorder , Intellectual disability TAKE 1 TABLET BY MOUTH 1 HR PRIOR TO PHYSICIAN APPTS, PROCEDURES, LAB DRAWS OR DIAGNOSTIC TESTING NEEDED 10 tablet 1 07/08/2023 05/22/2024 Discontinued (Reorder) Start: 12-27-2022 End: 07-05-2023 take 1 tablet by mouth every hour as needed LORazepam (ATIVAN) 2 mg tablet Indications: Anxiety due to invasive procedure , Impulse control disorder , Intellectual disability TAKE 1 TABLET BY MOUTH 1 HR PRIOR TO PHYSICIAN APPTS, PROCEDURES, LAB DRAWS OR DIAGNOSTIC TESTING NEEDED 10 tablet 1 12/27/2022 07/05/2023 Discontinued (Reorder) Start: 08-03-2019 take 1 tablet by heri th once daily Lorazepam Active 2 MG PO Daily August 03, 2019 12:00am 1 TAB PRIOR TO DOCTOR APPOINTMENT meloxicam 7.5 mg oral tablet (20 sources) Nonsteroidal Anti-inflammatory Drug Start: 01-09-2024 Meloxicam Active MG PO January 09, 2024 12:00am Start: 03-22-2023 End: 02-11-2024 take 1 tablet by mouth once daily in the morning meloxicam (MOBIC) 7.5 mg tablet Indications: Osteoarthritis of multiple joints, unspecified osteoarthritis type take 1 tablet by mouth every morning 31 tablet 11 02/11/2024 Active menthol 0.0044 mg/mg / zinc oxide 0.206 mg/mg topical ointment (20 sources) Start: 12-27-2022 CALMOSEPTINE 0 .44-20.6 % ointment APPLY TOPICALLY TO BUTTOCK TWICE DAILY;APPLY TOPICALLY TO BUTTOCK NEEDED 113 g 11 12/27/2022 Active Start: 08-03-2019 Menthol-Zinc O xide (Calmoseptine) 0.44-20.6 % Ointment Active 1 APPLIC TOPICAL Twice daily August 03, 2019 12:00am miconazole nitrate 0.02 mg/m g topical powder (20 sources) Azole Antifungal miconazole (Arnaldo otin) 2 % powder Apply topically if needed for itching. Active Miconazole Nitra te 2 % AERO Apply 1 Applicator externally daily. 0 Active 24 hr mirabegron 50 mg extended release oral tablet (20 sources) beta3-Adrenergic Agonist Start: 08-03-2019 End: 01-01-2024 take 1 tablet by mouth once daily MYRBETRIQ 50 mg tablet extended release 24 hr take 1 tablet by mouth once every day 31 tablet 11 01/01/2024 Active Mirabegron (MYRB ETRIQ PO) Take by mouth. Active Multiple Vitamin (multivitamin) tablet (20 sources) take 1 tablet by heri th in the morning Multiple Vitamin (multivitamin) tablet Take 1 tablet by mouth in the morning. Active Multiple Vitamins-Minerals (TAB-A-XIOMARA MAXIMUM PO) (20 sources) Multiple Vitamin s-Minerals (TAB-A-XIOMARA MAXIMUM PO) Take by mouth. Active multivitamin with iron (TAB-A-XIOMARA/IRON ORAL) (20 sources) multivitamin wit h iron (TAB-A-XIOMARA/IRON ORAL) See Admin Instructions. Active multivitamin wit h iron (TAB-A-XIOMARA/IRON ORAL) See Admin Instructions. 0 Active Zrzhafxjpall-Hzme-Zdgbl Acid (Tab-A-Xiomara Multivitamin W-Iron) 18-400 mg-mcg tablet (2 sources) Start: 01-09-2024 Kyouxambuvta-Xmqs-Qgfgq Acid (Tab-A-Xiomara Multivitamin W-Iron) 18-400 mg-mcg tablet Active TAB PO January 09, 2024 12:00am nirmatrelvir-ritonavir (PAXLOVID) tablets (2 sources) Start: 01-10-2024 End: 01-10-2024 take 2 tablets by mouth in the morning nirmatrelvir-ritonavir (PAXLOVID) tablets Indications: COVID-19 Take 2 tablets by mouth in the morning and 2 tablets before bedtime. Do all this for 5 days. HOLD SIMVASTATIN WHILE TAKING THIS MEDICATION. 20 tablet 01/10/2024 01/10/2024 Discontinued (Reorder) Start: 01-10-2024 End: 01-15-2024 take 2 tablets by mouth in the morning nirmatrelvir-ritonavir (PAXLOVID) tablet s Indications: COVID-19 Take 2 tablets by mouth in the morning and 2 tablets before bedtime. Do all this for 5 days. HOLD SIMVASTATIN WHILE TAKING THIS MEDICATION. 20 tablet 01/10/2024 01/15/2024 Active omega-3 acid ethyl esters (senior living) 1000 mg oral capsule (20 sources) Start: 08-03-2019 take 2 capsules by mouth twice daily [place]-3 Acid Ethyl Esters Active 2 CAP PO Twice daily August 03, 2019 12:00am take 1 capsule by mouth in the m orning omega-3 acid ethyl esters (Lovaza) 1 g capsule Take 1 g by mouth in the morning and 1 g before bedtime. Active take 1 g by mouth once daily ome ga-3-acid (LOVAZA) 1 GM capsule Take 1,000 mg by mouth daily. 0 Active oseltamivir 75 mg oral capsule (2 sources) Neuraminidase Inhibitor Start: 08-03-2019 take 1 capsule by mouth every twelve hours Oseltamivir (Tamiflu) 75 mg capsule Active 75 MG PO Q12H 10 5 August 03, 2019 12:00am 24 hr oxybutynin chloride 15 mg extended release oral tablet (20 sources) Cholinergic Muscarinic Antagonist Start: 12-20-2022 End: 01-01-2024 take 1 tablet by mouth once daily oxybutynin XL (DITROPAN XL) 15 mg 24 hr tablet TAKE 1 TABLET BY MOUTH ONCE EVERY DAY (8PM) 31 tablet 11 01/01/2024 Active Start: 08-03-2019 End: 09-20-2021 take 15 mg by mouth once daily Oxybutynin Chloride Act kendell 15 MG PO Daily August 03, 2019 12:00am take 1 tablet by heri th every twenty-four hours in the morning oxybutynin XL (Ditropan-XL) 15 MG 24 hr tablet Take 15 mg by mouth in the morning. Do not crush, chew, or split. . Active polyethylene glycol 3350 43807 mg powder for oral solution (20 sources) Osmotic Laxative Start: 12-27-2022 take 8 [oz_av] by mouth every other day as needed polyethylene glycol (GLYCOLAX) 17 gram/dose powder MIX 17 GRAMS IN 8 OZ OF WATER AND TAKE BY MOUTH NEEDED FOR NO STOOL IN 2 DAYS (DATE, TIME, INITIAL, EFFECT) 238 g 11 12/27/2022 Active Start: 08-03-2019 Polyethylene G lycol 3350 (Miralax) 17 gram/dose Powder Active 17 GM PO Q48H August 03, 2019 12:00am End: 09-20-2021 polyethylene glycol (GLYCOLA X) 17 GM/SCOOP powder Dissolve 17 g in 8 ounces of liquid and drink daily. 0 Active psyllium 2500 mg oral wafer (20 sources) Start: 03-30-2024 psyllium husk, with sugar, (METAMUCIL FIBER THIN) 2.5 gram wafer TAKE 2 WAFERS BY MOUTH ONCE EVERY DAY WITH MORNING MEDS 60 each 11 03/30/2024 Active Start: 05-09-2023 psyllium husk, with sugar, (METAMUCIL FIBER THIN) 2 gram wafer Indications: Chronic constipation TAKE 2 WAFERS BY MOUTH ONCE EVERY DAY WITH MORNING MEDS 60 Wafer 11 05/09/2023 Active Start: 08-03-2019 take 2 g by mouth once daily P syllium Husk (With Sugar) (Metamucil Fiber Thin) 2 gram Wafer Active 2 WAFER PO Daily August 03, 2019 12:00am psyllium (Metamu cil) 28 % packet Take 1 packet by mouth in the morning and 1 packet before bedtime. Mix and drink with at least 8 ounces of water or juice.. Active End: 09-20-2021 Psyllium (METAMUCIL SUNRISE ORAL) Take by mouth. 0 09/20/2021 Discontinued (Discontinued by another Health Care Provider) Psyllium (METAMU CIL SUNRISE ORAL) Take by mouth. 0 Active raNITIdine 150 mg oral tablet (20 sources) Histamine-2 Receptor Antagonist End: 09-20-2021 take 1 tablet by mouth in the morning raNITIdine (Zantac) 150 MG tablet Take 150 mg by mouth in the morning and 150 mg before bedtime. Active risperiDONE 2 mg oral tablet (20 sources) Atypical Antipsychotic Start: 02-19-2024 take 1 tablet by mouth in the morning, then take 1 tablet by mouth at bedtime risperiDONE (RisperDAL) 2 mg tablet Indications: Restlessness and agitation Take 1 tablet (2 mg total) by mouth in the morning and 1 tablet (2 mg total) before bedtime. 60 tablet 12 02/19/2024 Active Start: 01-09-2024 Risperidone Ac tive MG PO January 09, 2024 12:00am Start: 03-21-2023 take 1 tablet by heri th in the morning, then take 1 tablet by mouth at bedtime risperiDONE (RisperDAL) 2 mg tablet Indications: Restlessness and agitation Take 1 tablet (2 mg total) by mouth in the morning and 1 tablet (2 mg total) before bedtime. 60 tablet 11 03/21/2023 Active Start: 08-03-2019 End: 01-09-2024 take 0.25 mg by mouth twice daily Risperidone Discontinued 0.25 MG PO Twice daily August 03, 2019 12:00am January 09, 2024 12:31pm take 1.5 mg by mouth in the morning risperiDONE (RisperDAL) 2 MG tablet Take 1.5 mg by mouth in the morning and 1.5 mg before bedtime. Active take 1 tablet by heri th twice daily risperiDONE (RISPERDAL) 0.5 MG tablet Take 0.5 mg by mouth 2 times daily. 0 Active sennosides, senior living 8.6 mg oral tablet (8 sources) take 2 tablets by mouth at bedtime senna (SENOKOT) 8.6 MG TABS tablet Take 2 Tabs by mouth at bedtime. 0 Active simvastatin 10 mg oral tablet (20 sources) HMG-CoA Reductase Inhibitor Start: 3 End: 4 take 1 tablet by mouth once daily at bedtime simvastatin (ZOCOR) 10 mg tablet take 1 tablet by mouth every night at bedtime 31 tablet 11 12/31/2023 Active Start: 08-03-2019 End: 09-20-2021 take 10 mg by mouth once daily at bedtime Simvastatin Active 10 MG PO Daily at bedtime August 03, 2019 12:00am Skin Protectants, Misc. (DERMACERIN EX) (20 sources) Skin Protectants , Misc. (DERMACERIN EX) Apply topically Active sodium chloride 0.154 meq/ml irrigation solution (20 sources) Start: 12-27-2022 sodium chlorid e, bottle, (NS) 0.9 % irrigation CLEANSE RIGHT FOOT & APPLY MESALT DRESSING ONCE EVERY DAY AFTER SHOWERS (6AM) 500 mL 11 12/27/2022 Active sodium phosphate, dibasic 59 .3 mg/ml / sodium phosphate, monobasic 161 mg/ml enema (20 sources) Start: 12-27-2022 End: 01-06-2024 ENEMA DISPOSABLE 19-7 gram/1 18 mL enema INSERT 1 SUPPOSITORY RECTALLY NEEDED IF NO BOWEL MOVEMENT AFTER 3 DAYS (DATE, TIME, INITIAL, EFFECT) 266 mL 11 01/06/2024 Active sodium phosphate (Fleet) 3.5-9.5 GM/59ML enema Insert into the rectum Active TAB-A-XIOMARA MULTIVITAMIN W-IRON 18-400 mg-mcg tablet (20 sources) Start: 12-31-2023 take 1 tablet by mouth once daily TAB-A-XIOMARA MULTIVITAMIN W-IRON 18-400 mg-mcg tablet Indications: Chronic constipation take 1 tablet by mouth once every day 31 tablet 11 12/31/2023 Active Start: 12-27-2022 End: 12-31-2023 take 1 tablet by mouth once daily TAB-A-XIOMARA MULTIVITAMIN W-IRON 18-400 mg-mcg tablet Indications: Chronic constipation TAKE 1 TABLET BY MOUTH ONCE EVERY DAY 31 tablet 11 12/27/2022 12/31/2023 Discontinued Start: 12-27-2022 take 1 tablet by heri once daily TAB-A-XIOMARA MULTIVITAMIN W-IRON 18-400 mg-mcg tablet Indications: Chronic constipation TAKE 1 TABLET BY MOUTH ONCE EVERY DAY 31 tablet 12/27/2022 Active 24 hr divalproex sodium 250 mg extended release oral tablet (20 sources) Mood Stabilizer, Anti-epileptic Agent Start: 01-09-2024 Divalproex Active M G PO January 09, 2024 12:00am Start: 12-20-2023 take 3 tablets by mo [facility] once daily divalproex (DEPAKOTE ER) 250 mg 24 hr tablet Indications: Impulse control disorder Take 3 tablets (750 mg total) by mouth nightly. 93 tablet 12/20/2023 Active Start: 04-04-2023 take 2 tablets by mo uth once daily divalproex (DEPAKOTE ER) 250 mg 24 hr tablet Take 2 tablets (500 mg total) by mouth nightly. 60 tablet 04/04/2023 Active take 1 tablet by heri th once daily divalproex (Depakote ER) 250 MG 24 hr tablet Take 250 mg by mouth Daily Do not crush, chew, or split. Active water 1000 mg/ml irrigation solution (20 sources) Start: 12-27-2022 sterile water irrigation Indications: Suprapubic catheter (CMS-HCC) USE 30 CC'S TO IRRIGATE KLEIN CATHETER ONCE WEEKLY;USE 30 CC'S TO IRRIGATE KLEIN CATHETER NEEDED (IF NOT USING SOD CHLORIDE) 500 mL 12/27/2022 Active Water For Irriga tion, Sterile ([place] Sterile Water) solution Irrigate with as directed Active Zinc (6 sources) Start: 08-03-2019 take 50 mg by mouth once daily Zinc Active 50 MG PO Daily August 03, 2019 12:00am take 1 tablet by mouth once gonzalo y Zinc 50 MG TABS Take 1 Tablet by mouth daily. 0 Active zinc gluconate 50 mg oral tablet (20 sources) Start: 02-27-2023 End: 01-08-2024 take 1 tablet by mouth once daily zinc gluconate 50 mg tablet Indications: Pressure ulcer of right foot, stage 1 Take 1 tab by mouth once every day 31 tablet 11 01/08/2024 Active Completed/Discontinued Medications Medication Drug Class(es) Dates [...] take 2 capsules by mouth twice daily [place]-3 1000 MG CAPS Take 2 Caps by mouth 2 times daily. 0 09/20/2021 Discontinued (Discontinued by another Health Care Provider) Multiple Vitamins-Minerals (COMPLETE MULTIVITAMIN/MINERAL) LIQD (3 sources) End: 09-20-2021 take 1 tablet by mouth once daily Multiple Vitamins-Minerals (COMPLETE MULTIVITAMIN/CONTINUING EDUCATION DIRECTOR AL) LIQD Take 1 Tab by mouth daily. 0 09/20/2021 Discontinued (Discontinued by another Health Care Provider) take 1 tablet by mouth once gonzalo y Multiple Vitamins-Minerals (COMPLETE MULTIVITAMIN/MINERAL) LIQD Take 1 Tab by mouth daily. 0 Active Multivitamin With Iron (Daily Vites/Iron) Tablet (2 sources) Start: 08-03-2019 End: 01-09-2024 take 1 tablet by mouth once daily Multivitamin With Iron (Daily Vites/Iron) Tablet Discontinued 1 TAB PO Daily August 03, 2019 12:00am January 09, 2024 12:30pm Problems Active Problems Problem Classification Problem Date Documented Da te Episodic/Chronic Anxiety disorders (20 sources) Other obsessive-compulsive disorder; 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: [Obsessive-compulsiv e disorder] Onset: 07-23-2022 07-23-2022 Chronic Chronic ulcer of skin (20 sources) Pressure ulcer of right heel, stage 2; 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: [Pressure ulcer, heel] 02-28-2024 Chronic Complication of device; implant or graft (2 sources) Catheter-associated urinary tract infection; 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: [Infection and inflammatory reaction due to indwelling urethral catheter, initial encounter] 05-01-2023 Episodic Deficiency and other anemia (1 source) Other iron deficiency anemias; 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: [OTHER IRON DEFICIENCY ANEMIAS] Onset: 11-02-2021 Episodic Developmental disorders (20 sources) Unspecified intellectual disabilities; 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: [Intellectual disability] Onset: 01-10-2017 01-10-2017 Chronic Disorders of lipid metabolism (20 sources) Mixed hyperlipidemia; 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: [Mixed hyperlipidemia] Onset: 05-05-2017 Chronic Essential hypertension (20 sources) Essential (primary) hypertension; 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: [Hypertensive disorder] Onset: 11-05-2016 11-05-2016 Chronic Genitourinary symptoms and ill-defined conditions (20 sources) Suprapubic urinary catheter in situ; 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: [Other cystostomy status] Onset: 04-11-2017 04-11-2017 Chronic Immunizations and screening for infectious disease (5 sources) Encounter for screening for other viral diseases; 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: [Encounter for immunization] Onset: 04-03-2024 04-03-2024 Episodic Impulse control disorders, NEC (20 sources) Impulse disorder, unspecified; 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: [Impulse control disorder] Onset: 01-10-2017 01-10-2017 Chronic Influenza (2 sources) Influenza due to Influenza A virus; 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: [Influenza due to other identified influenza virus with other respiratory manifestations] 05-01-2023 Episodic Nervous system congenital anomalies (20 sources) Spina bifida of lumbar region; 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: [Lumbar spina bifida without hydrocephalus] Onset: 11-05-2016 02-28-2024 Chronic Nutritional deficiencies (1 source) Vitamin D deficiency, unspecified; 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: [VITAMIN D DEFICIENCY UNSPECIFIED] Onset: 11-02-2021 Chronic Osteoarthritis (2 sources) Osteoarthritis of multiple joints ; 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: [Polyosteoarthritis, unspecified] 07-18-2023 Chronic Other aftercare (1 source) Other skilled nursing (current) drug therapy; 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: [Other assistant terminal manager (current) drug therapy] Onset: 03-12-2024 Episodic Other diseases of bladder and urethra (20 sources) Spastic neurogenic bladder; 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: [Other neuromuscular dysfunction of bladder] Onset: 11-05-2016 10-16-2022 Chronic Other diseases of bladder and urethra (1 source) Other neuromuscular dysfunction of bladder; 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: [Other neuromuscular dysfunction of bladder] Onset: 10-16-2022 Chronic Other gastrointestinal disorders (20 sources) Chronic constipation; 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: [Other constipation] Onset: 01-02-2018 07-06-2019 Episodic Other nervous system disorders (19 sources) Hereditary sensory-motor neuropathy, type I; 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: [Hereditary motor and sensory neuropathy] 02-28-2024 Chronic Paralysis (19 sources) Flaccid paraplegia; 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: [Paraplegia, incomplete] 02-28-2024 Chronic Unclassified (3 sources) CONTACT W/AND (SUSP) EXPOS COVID-19; 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: [CONTACT W/AND (SUSP) EXPOS COVID-19] Onset: 03-15-2021 Unclassified (1 source) Bladder Problem Onset: 08-13-2023 Viral infection (2 sources) COVID-19; 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: [Other specified viral infection] 01-09-2024 Episodic Past or Other Problems Problem Classification Problem Date Documented Da te Episodic/Chronic Allergic reactions (20 sources) Psychogenic urticaria; 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: [Other urticaria] Onset: 05-05-2017 Resolved: 07-18-2019 07-18-2019 Episodic Attention-deficit, conduct, and disruptive behavior disorders (20 sources) Aggressive behavior; 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: [Other symptoms and signs involving appearance and behavior] Onset: 09-24-2019 09-24-2019 Episodic Crushing injury or internal injury (20 sources) Injury of rectum with open wound into abdominal cavity; 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: [Unspecified injury of rectum, initial encounter] Onset: 07-01-2019 Resolved: 07-08-2024 07-01-2019 Episodic Deficiency and other anemia (20 sources) Anemia; 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: [Anemia, unspecified] Onset: 07-18-2019 07-18-2019 Episodic Disorders of teeth and jaw (8 sources) Dental caries; 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: [Dental caries, unspecified] Onset: 08-02-2021 08-02-2021 Episodic E Codes: Fall (1 source) Fall; 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: [Unspecified fall, sequela] 07-18-2023 Episodic Hemorrhoids (20 sources) Hemorrhoids; 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: [Unspecified hemorrhoids] Onset: 07-01-2019 07-01-2019 Episodic Mood disorders (20 sources) Mood disorders Onset: 10-18-2022 Resolved: 10-25-2023 10-25-2023 Other ear and sense organ disorders (20 sources) Excessive cerumen in ear canal ; 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: [Impacted cerumen, bilateral] Onset: 06-03-2017 06-03-2017 Episodic Other screening for suspected conditions (not mental disorders or infectious disease) (20 sources) Increased vitamin B; 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: [Other specified abnormal findings of blood chemistry] Onset: 06-30-2019 06-30-2019 Episodic Unclassified (1 source) CONTACT W/AND (SUSP) EXPOS COVID-19; 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: [CONTACT W/AND (SUSP) EXPOS COVID-19] Onset: 03-01-2021 Unclassified (20 sources) Onset: 10-25-2022 10-25-2022 Results Test Name Value Interpretation Reference Range Facility BASIC METABOLIC PANLon 04-08 Anion gap [Moles/Vol] 9 mmol/L Normal 5-15 [facility] Comment on above: Performed By: #### C ANTHONY BMP, 39211-2 #### [facility] ([id number]) [address], [address] [place] [address] Calcium [Mass/Vol] 9.2 mg/dL Normal 8.5-10.5 [facility] Comment on above: Performed By: #### C BCA, BMP, 43996-5 #### [facility] ([id number]) [address], [address] [place] [address] Chloride [Moles/Vol] 103 mmol/L Normal 98-109 [facility] Comment on above: Performed By: #### C BCA, BMP, 54820-4 #### [facility] ([id number]) [address] [address] CO2 [Moles/Vol] 27 mmol/L Normal 22-32 [facility] Comment on above: Performed By: #### C BCA, BMP, 38742-1 #### [facility] ([id number]) [address] [address] Creatinine [Mass/Vol] 1.07 mg/dL Normal 0.60-1.30 [facility] Comment on above: Result Comment: METH OD TRACEABLE TO IDMS STANDARD Performed By: #### C ANTHONY BMP, 62995-9 #### [facility] ([id number]) [address] [address] GFR/1.73 sq M.predicted among non-blacks MDRD (S/P/Bld) [Vol rate/Area] 78 mL/min/{1.73_m2} Normal >59 [facility] Comment on above: Result Comment: Reported eGFR is based on the CKD-EPI 2020 equation that does not use a race coefficient. Performed By: #### C BCA, BMP, 88446-6 #### [facility] ([id number]) [address] [address] Glucose [Mass/Vol] 68 mg/dL Normal 65-99 [facility] Comment on above: Performed By: #### C BCA, BMP, 73569-8 #### [facility] ([id number]) [address] [address] Potassium [Moles/Vol] 4.2 mmol/L Normal 3.5-5.0 [facility] Comment on above: Performed By: #### C BCA, BMP, 75751-5 #### [facility] ([id number]) [address], [address] [place] [address] Sodium [Moles/Vol] 139 mmol/L Normal 134-146 [facility] Comment on above: Performed By: #### Fermin CRUZ BMP, 40185-7 #### [facility] ([id number]) [address], [address] [place] [address] Urea nitrogen [Mass/Vol] 23 mg/dL Normal 5-27 [facility] Comment on above: Performed By: #### Fermin CRUZ BMP, 58414-8 #### [facility] ([id number]) [address], [address] [place] [address] CBC AND AUTO DIFFon 1120-20 24 ABSOLUTE BASOPHIL 0.1 X10E9/L Normal 0.0-0.2 [facility] Comment on above: Performed By: #### Fermin CRUZ BMP, 41017-8 #### [facility] ([id number]) [address], [address] [place] [address] Basophils/100 WBC (Bld) 1.0 % Normal [facility] Comment on above: Performed By: #### Fermin CRUZ, BMP, 49576-7 #### [facility] ([id number]) [address], [address] [place] [address] JOSE 1+ Abnormal NONE [facility] Comment on above: Performed By: #### Fermin CRUZ BMP, 66840-2 #### [facility] ([id number]) [address], [address] [place] [address] Eosinophils (Bld) [#/Vol] 0.2 10*3/uL Normal 0.0-0.4 [facility] Comment on above: Performed By: #### Fermin CRUZ, BMP, 21806-7 #### [facility] ([id number]) [address], [address] [place] [address] Eosinophils/100 WBC (Bld) 2.0 % Normal [facility] Comment on above: Performed By: #### C BCA, BMP, 03568-5 #### [facility] ([id number]) [address] [place] [address] Erythrocyte distribution width (RBC) [Ratio] 14.4 % Normal 11.5-15.0 [facility] Comment on above: Performed By: #### C BCA, BMP, 60191-2 #### [facility] ([id number]) [address], [facility] [address] [place] [address] Hematocrit (Bld) [Volume fraction] 37.0 % Low 39-49 [facility] Comment on above: Performed By: #### C BCA, BMP, 97476-6 #### [facility] ([id number]) [address], [facility] [address] [place] [address] Hemoglobin (Bld) [Mass/Vol] 12.8 g/dL Low 13.0-17.0 [facility] Comment on above: Performed By: #### C BCA, BMP, 08918-3 #### [facility] ([id number]) [address], [address] [place] [address] LYMPHOCYTE, ATYPICAL 2.0 % Normal [facility] Comment on above: Performed By: #### Fermin BCA, BMP, 13741-2 #### [facility] ([id number]) [address], [facility] [address] [place] [address] Lymphocytes (Bld) [#/Vol] 1.5 10*3/uL Normal 1.0-3.5 [facility] Comment on above: Performed By: #### C BCA, BMP, 44437-0 #### [facility] ([id number]) [address] [place] [address] Lymphocytes/100 WBC (Bld) 17.6 % Normal [facility] Comment on above: Performed By: #### C BCA, BMP, 45005-2 #### [facility] ([id number]) [address], [address] [place] [address] MCH (RBC) [Entitic mass] 31.8 pg Normal 27-34 [facility] Comment on above: Performed By: #### C BCA, BMP, 86158-0 #### [facility] ([id number]) [address], [facility] [address] [place] [address] MCHC (RBC) [Mass/Vol] 34.5 g/dL Normal 32-36 [facility] Comment on above: Performed By: #### C BCA, BMP, 93834-9 #### [facility] ([id number]) [address], [facility] [address] [place] [address] MCV (RBC) [Entitic vol] 92 fL Normal 80-100 [facility] Comment on above: Performed By: #### Fermin BCA, BMP, 63152-6 #### [facility] ([id number]) [address], [address] [place] [address] Monocytes (Bld) [#/Vol] 0.9 10*3/uL Normal 0-0.9 [facility] Comment on above: Performed By: #### C BCA, BMP, 19784-8 #### [facility] ([id number]) [address], [facility] [address] [place] [address] Monocytes/100 WBC (Bld) 11.8 % Normal [facility] Comment on above: Performed By: #### C BCA, BMP, 64605-6 #### [facility] ([id number]) [address] [place] [address] Neutrophils (Bld) [#/Vol] 4.9 10*3/uL Normal 1.5-6.6 [facility] Comment on above: Performed By: #### Fermin BCA, BMP, 87683-2 #### [facility] ([id number]) [address], [address] [place] [address] Platelet mean volume (Bld) [Entitic vol] 10.0 fL Normal 7-12 [facility] Comment on above: Performed By: #### Fermin CRUZ BMP, 56635-2 #### [facility] ([id number]) [address], [address] [place] [address] Platelets (Bld) [#/Vol] 149 10*3/uL Low 150-450 [facility] Comment on above: Performed By: #### Fermin CRUZ BMP, 05566-8 #### [facility] ([id number]) [address], [address] [place] [address] RBC COUNT 4.02 X10E12/L Low 4.10-5.70 [facility] Comment on above: Performed By: #### Fermin CRUZ BMP, 16418-5 #### [facility] ([id number]) [address], [address] [place] [address] SEG NEUTROPHIL 65.6 % Normal [facility] Comment on above: Performed By: #### Fermin CRUZ BMP, 02759-9 #### [facility] ([id number]) [address], [address] [place] [address] WBC (Bld) [#/Vol] 7.5 10*3/uL Normal 4.0-11.0 [facility] Comment on above: Performed By: #### Fermin CRUZ, BMP, 79340-7 #### [facility] ([id number]) [address], [address] [place] [address] HCV Ab IA Qlon 04-08-2024 ANTI HCV W/PCR REFLX Non-Reactive Normal NRCT [facility] Comment on above: Result Comment: If recent infection suspected, recommend repeat testing (>2 months). Dspwpb-lz-xnpwrt ratio is <0.80. Performed By: #### Fermin CRUZ, BMP, 54221-3 #### [facility] ([id number]) [address], [address] [place] [address] Respiratory specimen 2019 no lashon coronavirus RNA detection by probe and target amplifion 01-09-2024 SARS-CoV-2 (COVID-19) RNA PATRICIA+probe Ql (Resp) Positive [facility] Valproate [Mass/Vol]on 01-06 VALPROIC ACID 50 ug/mL Normal 50-100 [facility] Comment on above: Performed By: #### 4 086-5 #### [facility] ([id number]) [address] [address] [place] [address] CBC AND AUTO DIFFon 11-06-19 24 ABSOLUTE BASOPHIL 0.0 X10E9/L Normal 0.0-0.2 [facility] Comment on above: Performed By: #### C BCA, CMP, FEPR, 24905-1, HA1C #### [facility] ([id number]) [address] [address] [place] [address] ABSOLUTE NEUTROPHIL 4.0 X10E9/L Normal 1.5-6.6 [facility] Comment on above: Performed By: #### C BCA, CMP, FEPR, 24043-1, HA1C #### [facility] ([id number]) [address] [place] [address] Basophils/100 WBC (Bld) 0.8 % Normal [facility] Comment on above: Performed By: #### C BCA, CMP, FEPR, 74707-8, HA1C #### [facility] ([id number]) [address] [address] [place] [address] Eosinophils (Bld) [#/Vol] 0.1 10*3/uL Normal 0.0-0.4 [facility] Comment on above: Performed By: #### C BCA, CMP, FEPR, 64687-3, HA1C #### [facility] ([id number]) [address] [place] [address] Eosinophils/100 WBC (Bld) 2.0 % Normal [facility] Comment on above: Performed By: #### C BCA, CMP, FEPR, 20450-2, HA1C #### [facility] ([id number]) [address], [address] [place] [address] Erythrocyte distribution width (RBC) [Ratio] 15.0 % Normal 11.5-15.0 [facility] Comment on above: Performed By: #### C BCA, CMP, FEPR, 84135-1, HA1C #### [facility] ([id number]) [address], [facility] [address] [place] [address] Hematocrit (Bld) [Volume fraction] 36.7 % Low 39-49 [facility] Comment on above: Performed By: #### C BCA, CMP, FEPR, 99268-4, HA1C #### [facility] ([id number]) [address], [facility] [address] [place] [address] Hemoglobin (Bld) [Mass/Vol] 12.4 g/dL Low 13.0-17.0 [facility] Comment on above: Performed By: #### C BCA, CMP, FEPR, 64641-9, HA1C #### [facility] ([id number]) [address], [facility] [address] [place] [address] Lymphocytes (Bld) [#/Vol] 1.2 10*3/uL Normal 1.0-3.5 [facility] Comment on above: Performed By: #### C BCA, CMP, FEPR, 17753-4, HA1C #### [facility] ([id number]) [address], [address] [place] [address] Lymphocytes/100 WBC (Bld) 21.4 % Normal [facility] Comment on above: Performed By: #### C BCA, CMP, FEPR, 50458-4, HA1C #### [facility] ([id number]) [address] [place] [address] MCH (RBC) [Entitic mass] 30.8 pg Normal 27-34 [facility] Comment on above: Performed By: #### C BCA, CMP, FEPR, 01068-4, HA1C #### [facility] ([id number]) [address] [place] [address] MCHC (RBC) [Mass/Vol] 33.7 g/dL Normal 32-36 [facility] Comment on above: Performed By: #### C BCA, CMP, FEPR, 42531-6, HA1C #### [facility] ([id number]) [address], [address] [place] [address] MCV (RBC) [Entitic vol] 91 fL Normal 80-100 [facility] Comment on above: Performed By: #### C BCA, CMP, FEPR, 78694-5, HA1C #### [facility] ([id number]) [address] [address] [place] [address] Monocytes (Bld) [#/Vol] 0.4 10*3/uL Normal 0-0.9 [facility] Comment on above: Performed By: #### C BCA, CMP, FEPR, 85793-7, HA1C #### [facility] ([id number]) [address], [address] [place] [address] Monocytes/100 WBC (Bld) 6.9 % Normal [facility] Comment on above: Performed By: #### C BCA, CMP, FEPR, 03955-2, HA1C #### [facility] ([id number]) [address], [address] [place] [address] Neutrophils/100 WBC (Bld) 68.9 % Normal [facility] Comment on above: Performed By: #### C BCA, CMP, FEPR, 74409-6, HA1C #### [facility] ([id number]) [address], [address] [place] [address] Platelet mean volume (Bld) [Entitic vol] 9.3 fL Normal 7-12 [facility] Comment on above: Performed By: #### C BCA, CMP, FEPR, 48294-6, HA1C #### [facility] ([id number]) [address], [address] [place] [address] Platelets (Bld) [#/Vol] 158 10*3/uL Normal 150-450 [facility] Comment on above: Performed By: #### C BCA, CMP, FEPR, 61039-9, HA1C #### [facility] ([id number]) [address], [address] [place] [address] RBC COUNT 4.02 X10E12/L Low 4.10-5.70 [facility] Comment on above: Performed By: #### C BCA, CMP, FEPR, 91947-5, HA1C #### [facility] ([id number]) [address], [facility] [address] [place] [address] WBC (Bld) [#/Vol] 5.8 10*3/uL Normal 4.0-11.0 [facility] Comment on above: Performed By: #### C BCA, CMP, FEPR, 11048-3, HA1C #### [facility] ([id number]) [address], [address] [place] [address] COMPREHENSIVE METABOLIC PANE Tamir 11-06-2023 Albumin [Mass/Vol] 3.9 g/dL Normal 3.2-5.3 [facility] Comment on above: Performed By: #### C BCA, CMP, FEPR, 97266-7, HA1C #### [facility] ([id number]) [address], [address] [place] [address] ALP [Catalytic activity/Vol] 77 U/L Normal 39-130 [facility] Comment on above: Performed By: #### C BCA, CMP, FEPR, 70422-1, HA1C #### [facility] ([id number]) [address], [address] [place] [address] ALT [Catalytic activity/Vol] 18 U/L Normal 0-40 [facility] Comment on above: Performed By: #### C BCA, CMP, FEPR, 52790-4, HA1C #### [facility] ([id number]) [address] [place] [address] Anion gap [Moles/Vol] 9 mmol/L Normal 5-15 [facility] Comment on above: Performed By: #### C BCA, CMP, FEPR, 25582-8, HA1C #### [facility] ([id number]) [address] [place] [address] AST [Catalytic activity/Vol] 14 U/L Normal 0-41 [facility] Comment on above: Performed By: #### C BCA, CMP, FEPR, 59660-6, HA1C #### [facility] ([id number]) [address], [address] [place] [address] Bilirubin [Mass/Vol] 0.3 mg/dL Normal 0.3-1.2 [facility] Comment on above: Performed By: #### C BCA, CMP, FEPR, 02461-9, HA1C #### [facility] ([id number]) [address] [place] [address] Calcium [Mass/Vol] 9.1 mg/dL Normal 8.5-10.5 [facility] Comment on above: Performed By: #### C BCA, CMP, FEPR, 39947-4, HA1C #### [facility] ([id number]) [address], [address] [place] [address] Chloride [Moles/Vol] 106 mmol/L Normal 98-109 [facility] Comment on above: Performed By: #### C BCA, CMP, FEPR, 79645-4, HA1C #### [facility] ([id number]) [address], [address] [place] [address] CO2 [Moles/Vol] 29 mmol/L Normal 22-32 [facility] Comment on above: Performed By: #### C BCA, CMP, FEPR, 27577-8, HA1C #### [facility] ([id number]) [address], [address] [place] [address] Creatinine [Mass/Vol] 1.15 mg/dL Normal 0.60-1.30 [facility] Comment on above: Result Comment: METH OD TRACEABLE TO IDMS STANDARD Performed By: #### C BCA, CMP, FEPR, 51499-4, HA1C #### [facility] ([id number]) [address], [address] [place] [address] GFR/1.73 sq M.predicted among non-blacks MDRD (S/P/Bld) [Vol rate/Area] 72 mL/min/{1.73_m2} Normal >59 [facility] Comment on above: Result Comment: Reported eGFR is based on the CKD-EPI 2020 equation that does not use a race coefficient. Performed By: #### C BCA, CMP, FEPR, 75165-5, HA1C #### [facility] ([id number]) [address], [address] [place] [address] Glucose [Mass/Vol] 85 mg/dL Normal 65-99 [facility] Comment on above: Performed By: #### C BCA, CMP, FEPR, 44176-7, HA1C #### [facility] ([id number]) [address], [address] [place] [address] Potassium [Moles/Vol] 4.2 mmol/L Normal 3.5-5.0 [facility] Comment on above: Performed By: #### C BCA, CMP, FEPR, 46389-4, HA1C #### [facility] ([id number]) [address] [place] [address] Protein [Mass/Vol] 7.0 g/dL Normal 6.0-8.0 [facility] Comment on above: Performed By: #### C BCA, CMP, FEPR, 13417-2, HA1C #### [facility] ([id number]) [address] [place] [address] Sodium [Moles/Vol] 144 mmol/L Normal 134-146 [facility] Comment on above: Performed By: #### C BCA, CMP, FEPR, 03500-2, HA1C #### [facility] ([id number]) [address] [address] Urea nitrogen [Mass/Vol] 18 mg/dL Normal 5-27 [facility] Comment on above: Performed By: #### C BCA, CMP, FEPR, 95228-4, HA1C #### [facility] ([id number]) [address] [place] [address] HGB A1C (GLYCO-HGB)on 2023 Glucose [Mass/Vol] 111 mg/dL Normal [facility] Comment on above: Performed By: #### C BCA, CMP, FEPR, 15889-2, HA1C #### [facility] ([id number]) [address] [place] [address] HbA1c (Bld) [Mass fraction] 5.5 % Normal 4.4-5.6 [facility] Comment on above: Result Comment: NOTE ADA Guidelines Result HgbA1c Normal : less than 5.7 % Prediabetes : 5.7 % to 6.4 % Diabetes : > 6.4 % Use with caution in patients with abnormal hemoglobin variants as the half-life of red blood cells and in vivo glycation rates are affected. Performed By: #### C BCA, CMP, FEPR, 29020-0, HA1C #### [facility] ([id number]) [address], [address] [place] [address] IRON PROFILEon 11-06-2023 Iron [Mass/Vol] 58 ug/dL Normal 50-212 [facility] Comment on above: Performed By: #### C BCA, CMP, FEPR, 36311-1, HA1C #### [facility] ([id number]) [address], [address] [address] IRON BINDING 318 ug/dL Normal 250-425 [facility] Comment on above: Performed By: #### C BCA, CMP, FEPR, 29934-3, HA1C #### [facility] ([id number]) [address], [address] [address] IRON SATURATION 18 % SATURATION Low 20-50 [facility] Comment on above: Performed By: #### C BCA, CMP, FEPR, 03197-0, HA1C #### [facility] ([id number]) [address], [facility] [address] [place] [address] Lipid 1996 panelon 4 Cholesterol [Mass/Vol] 131 mg/dL Low 150-200 [facility] Comment on above: Performed By: #### C BCA, CMP, FEPR, 69275-8, HA1C #### [facility] ([id number]) [address] [place] [address] Cholesterol in HDL [Mass/Vol] 57 mg/dL Normal >39 [facility] Comment on above: Result Comment: HDL <40 mg/dL - High Risk HDL > or = 40mg/dL- Desirable HDL >60 mg/dL - Negative Risk Performed By: #### C BCA, CMP, FEPR, 69834-9, HA1C #### [facility] ([id number]) [address], [address] [address] Cholesterol in LDL [Mass/Vol] 61 mg/dL Normal <130 [facility] Comment on above: Result Comment: LDL <100 mg/dL - Desirable LDL >160 mg/dL - High Risk Performed By: #### C BCA, CMP, FEPR, 59445-6, HA1C #### [facility] ([id number]) [address] [address] Cholesterol in VLDL [Mass/Vol] 13 mg/dL Normal 0-30 [facility] Comment on above: Performed By: #### C BCA, CMP, FEPR, 68850-6, HA1C #### [facility] ([id number]) [address] [address] CHOLESTEROL:HDL 2.3 Normal 1.0-5.0 [facility] Comment on above: Performed By: #### C BCA, CMP, FEPR, 18366-6, HA1C #### [facility] ([id number]) [address] [address] Triglyceride [Mass/Vol] 67 mg/dL Normal 27-150 [facility] Comment on above: Performed By: #### C BCA, CMP, FEPR, 41722-7, HA1C #### [facility] ([id number]) [address] [address] Progress Noteson 11-30-2022 [employer] Authentication Interface Message Text ----- Wednesday, November 30, 2022 at 1:07:59 PM ----- ----- Provider: [id number] - Dora Alvarado, -- Clinic: [facility] ----- OR EVALUATION Patient presents for evaluation [...] becomes available. Legal Guardian: Vilma Schmitt (Sister) [phone] , verbal consent was taken NOTE: OR request was put in place Next Visit: Dental treatment in the OR ----- Signed on Wednesday, November 30, 2022 at 8:25:31 PM ----- ----- Provider: [id number] - Winston Glass DMD -- Clinic: [facility] ----- [facility] AUTO DIFFon 10-31-2021 BASO # 0.0 103/ul Normal 0.0-0.1 [facility] Comment on above: Performed By: #### C BC #### [facility] [address] [place] [address] Dr. Dante Jules Basophils/100 WBC (Bld) 0.5 % Normal 0.2-2.0 [facility] Comment on above: Performed By: #### C BC #### [facility] [address] [place] [address] Dr. Dante Jules EO # 0.2 103/ul Normal 0.0-0.7 [facility] Comment on above: Performed By: #### C BC #### [facility] [address] [place] [address] Dr. Dante Jules Eosinophils/100 WBC (Bld) 2.3 % Normal 0.9-7.0 [facility] Comment on above: Performed By: #### C BC #### [facility] [address] [place] [address] Dr. Dante Jules Erythrocyte distribution width (RBC) [Ratio] 13.6 % Normal 11.0-15.0 [facility] Comment on above: Performed By: #### C BC #### [facility] [address] [place] [address] Dr. Dante Jules Hematocrit (Bld) [Volume fraction] 41.6 % Critically low 42.0-54.0 [facility] Comment on above: Performed By: #### C BC #### [facility] [address] [place] [address] Dr. Dante Jules Hemoglobin (Bld) [Mass/Vol] 13.3 g/dL Critically low 14.0-18.0 [facility] Comment on above: Performed By: #### C BC #### [facility] [address] [place] [address] Dr. Dante Jules IG # 0.01 10e3/ul Normal 0.00-0.03 [facility] Comment on above: Performed By: #### C BC #### [facility] [address] [place] [address] Dr. Dante Jules IG % 0.1 % Normal 0.0-0.5 [facility] Comment on above: Performed By: #### C BC #### [facility] [address] [place] [address] Dr. Dante Jules LYMPH # 1.7 103/ul Normal 1.2-3.8 [facility] Comment on above: Performed By: #### C BC #### [facility] [address] [place] [address] Dr. Dante Jules Lymphocytes/100 WBC (Bld) 21.8 % Normal 20.5-60.0 [facility] Comment on above: Performed By: #### C BC #### [facility] [address] [place] [address] Dr. Dante Jules MANUAL DIFF REQ NO Normal [facility] Comment on above: Performed By: #### C BC #### [facility] [address] [place] [address] Dr. Dante Jules MCH (RBC) [Entitic mass] 29.4 pg Normal 25.9-34.0 [facility] Comment on above: Performed By: #### C BC #### [facility] [address] [place] [address] Dr. Dante Jules MCHC (RBC) [Mass/Vol] 32.0 g/dL Normal 29.9-35.2 [facility] Comment on above: Performed By: #### C BC #### [facility] [address] [place] [address] Dr. Dante Jules MCV (RBC) [Entitic vol] 91.8 fL Normal 80.0-94.0 [facility] Comment on above: Performed By: #### C BC #### [facility] [address] [place] [address] Dr. Dante Jules MONO # 0.6 103/ul Normal 0.3-0.8 [facility] Comment on above: Performed By: #### C BC #### [facility] [address] [place] [address] Dr. Danet Jules Monocytes/100 WBC (Bld) 7.8 % Normal 1.7-12.0 [facility] Comment on above: Performed By: #### C BC #### [facility] [address] [place] [address] Dr. Dante Jules NEUT # 5.3 103/ul Normal 1.4-6.5 [facility] Comment on above: Performed By: #### C BC #### [facility] [address] [place] [address] Dr. Dante Jules Neutrophils/100 WBC (Bld) 67.5 % Normal 43.0-75.0 [facility] Comment on above: Performed By: #### C BC #### [facility] [address] [place] [address] Dr. Dante Jules Platelet mean volume (Bld) [Entitic vol] 10.2 fL Normal 9.5-13.5 [facility] Comment on above: Performed By: #### C BC #### [facility] [address] [place] [address] Dr. Dante Jules PLT 191 103/ul Normal 150-450 [facility] Comment on above: Performed By: #### C BC #### [facility] [address] [address] [address] Dante Jules RBC 4.53 106/ul Critically low 4.70-6.10 [facility] Comment on above: Performed By: #### C BC #### [facility] [address] [address] [address] Dante Jules WBC 7.9 103/ul Normal 4.0-11.0 [facility] Comment on above: Performed By: #### C BC #### [facility] [address] [address] [address] Dante Jules IRON AND TIBCon 10-24-2021 % SATURATION 19.9 % Normal [facility] Comment on above: Performed By: #### F ETIBC #### [facility] [address] [address] [address] Dante Jules Iron [Mass/Vol] 67.0 ug/dL Normal 65.0-175.0 [facility] Comment on above: Performed By: #### F ETIBC #### [facility] [address] [address] [address] Dante Jules TIBC DIRECT 336.0 ug/dL Normal 250.0-450.0 [facility] Comment on above: Performed By: #### F ETIBC #### [facility] [address] [address] [address] Dante Jules LIPID PROFILEon 10-24-2021 CHOL-HDL RATIO NORM SEE BELOW Normal [facility] Comment on above: Result Comment: 3.3 - 4.4 LOW RISK 4.4 - 7.1 AVERAGE RISK 7.1 - 11.0 MODERATE RISK >11.0 HIGH RISK Performed By: #### L IPID, CMP #### [facility] [address] [address] [address] Dante Jules Cholesterol [Mass/Vol] 170 mg/dL Normal <=200 [facility] Comment on above: Performed By: #### L IPID, CMP #### [facility] [address] [address] [address] Dante Jules Cholesterol in HDL [Mass/Vol] 52 mg/dL Normal 40-60 [facility] Comment on above: Performed By: #### L IPID, CMP #### [facility] [address] [address] [address] Dante Jules Cholesterol in LDL [Mass/Vol] 104.0 mg/dL Normal [facility] Comment on above: Performed By: #### L IPID, CMP #### [facility] [address] [place] [address] Dr. Dante Jules Cholesterol.total/C holesterol in HDL [Mass ratio] 3.3 {ratio} Normal [facility] Comment on above: Performed By: #### L IPID, CMP #### [facility] [address] [place] [address] Dr. Dante Jules HDL NORMAL > or = 60 mg/dl - LOW CARDIOVASCULAR RISK <40 mg/dl - HIGH CARDIOVASCULAR RISK Normal [facility] Comment on above: Performed By: #### L IPID, CMP #### [facility] [address] [place] [address] Dr. Dante Jules LDL CALC NORMAL SEE BELOW Normal [facility] Comment on above: Result Comment: <100 mg/dl OPTIMAL 100 - 129 mg/dl NEAR OR ABOVE OPTIMAL 130 - 159 mg/dl BORDERLINE HIGH 160 - 189 mg/dl HIGH >190 mg/dl VERY HIGH Performed By: #### L IPID, CMP #### [facility] [address] [place] [address] Dr. Dante Jules Triglyceride [Mass/Vol] 70 mg/dL Normal <=150 [facility] Comment on above: Performed By: #### L IPID, CMP #### [facility] [address] [address] [address] Dante Jules VLDL CALC 14.0 mg/dL Normal [facility] Comment on above: Performed By: #### L IPID, CMP #### [facility] [address] [place] [address] Dr. Dante Jules PROF 14(COMP METB)on 06-07-2 022 Albumin [Mass/Vol] 3.4 g/dL Normal 3.4-5.0 [facility] Comment on above: Performed By: #### L IPID, CMP #### [facility] [address] [place] [address] Dr. Dante Jules Albumin/Globulin [Mass ratio] 0.8 {ratio} Normal [facility] Comment on above: Performed By: #### L IPID, CMP #### [facility] [address] [address] [address] Dante Jules ALP [Catalytic activity/Vol] 104 U/L Normal 46-116 [facility] Comment on above: Performed By: #### L IPID, CMP #### [facility] [address] [place] [address] Dr. Dnate Jules ALT [Catalytic activity/Vol] 31 U/L Normal 16-63 [facility] Comment on above: Performed By: #### L IPID, CMP #### [facility] [address] [place] [address] Dr. Dante Jules Anion gap [Moles/Vol] 11.9 mmol/L Normal [facility] Comment on above: Performed By: #### L IPID, CMP #### [facility] [address] [place] [address] Dr. Dante Jules AST [Catalytic activity/Vol] 22 U/L Normal 15-37 [facility] Comment on above: Performed By: #### L IPID, CMP #### [facility] [address] [place] [address] Dr. Dante Jules Bilirubin [Mass/Vol] 0.4 mg/dL Normal 0.2-1.0 [facility] Comment on above: Performed By: #### L IPID, CMP #### [facility] [address] [place] [address] Dr. Dante Jules Calcium [Mass/Vol] 9.0 mg/dL Normal 8.5-10.1 [facility] Comment on above: Performed By: #### L IPID, CMP #### [facility] [address] [place] [address] Dr. Dante Jules Chloride [Moles/Vol] 106 mmol/L Normal 98-107 [facility] Comment on above: Performed By: #### L IPID, CMP #### [facility] [address] [place] [address] Dr. Dante Jules CO2 [Moles/Vol] 26.3 mmol/L Normal 21.0-32.[address] [facility] Comment on above: Performed By: #### L IPID, CMP #### [facility] [address] [place] [address] Dr. Dante Jules Creatinine [Mass/Vol] 1.17 mg/dL Normal 0.70-1.30 [facility] Comment on above: Performed By: #### L IPID, CMP #### [facility] [address] [place] [address] Dr. Dante Jules EGFR-AF CONGOLESE >60 Normal >=[address] [facility] Comment on above: Performed By: #### L IPID, CMP #### [facility] [address] [place] [address] Dr. Dante Jules EGFR-NON AF CONGOLESE >60 Normal >=60 [facility] Comment on above: Performed By: #### L IPID, CMP #### [facility] [address] [place] [address] Dr. Dante Jules Globulin (S) [Mass/Vol] 4.2 g/dL Normal [facility] Comment on above: Performed By: #### L IPID, CMP #### [facility] [address] [place] [address] Dr. Dante Jules Glucose [Mass/Vol] 95 mg/dL Normal 74-106 [facility] Comment on above: Performed By: #### L IPID, CMP #### [facility] [address] [place] [address] Dr. Dante Jules Potassium [Moles/Vol] 4.2 mmol/L Normal 3.5-5.1 [facility] Comment on above: Performed By: #### L IPID, CMP #### [facility] [address] [place] [address] Dr. Dante Jules Protein [Mass/Vol] 7.6 g/dL Normal 6.4-8.2 [facility] Comment on above: Performed By: #### L IPID, CMP #### [facility] [address] [place] [address] Dr. Dante Jules Sodium [Moles/Vol] 140 mmol/L Normal 136-145 [facility] Comment on above: Performed By: #### L IPID, CMP #### [facility] [address] [place] [address] Dr. Dante Jules Urea nitrogen [Mass/Vol] 22.0 mg/dL Critically high 7.0-18.0 [facility] Comment on above: Performed By: #### L IPID, CMP #### [facility] [address] [place] [address] Dr. Dante Jules Urea nitrogen/Creatinine [Mass ratio] 18.8 mg/mg Normal [facility] Comment on above: Performed By: #### L IPID, CMP #### [facility] [address] [place] [address] Dr. Dante Jules CBC AUTO DIFFon 08-16-2021 BASO # 0.0 103/ul Normal 0.0-0.1 [facility] Comment on above: Performed By: #### V FELICIA, PSAD #### [facility] [address] [place] [address] Dr. Dante Jules Basophils/100 WBC (Bld) 0.5 % Normal 0.2-2.0 [facility] Comment on above: Performed By: #### V ITAD, PSAD #### [facility] [address] [place] [address] Dr. Dante Jules EO # 0.4 103/ul Normal 0.0-0.7 [facility] Comment on above: Performed By: #### V ITKRYSTLE, PSAD #### [facility] [address] [place] [address] Dr. Dante Jules Eosinophils/100 WBC (Bld) 5.0 % Normal 0.9-7.0 [facility] Comment on above: Performed By: #### V ITKRYSTLE, PSAD #### [facility] [address] [place] [address] Dr. Dante Jules Erythrocyte distribution width (RBC) [Ratio] 13.6 % Normal 11.0-15.0 [facility] Comment on above: Performed By: #### V ITAD, PSAD #### [facility] [address] [place] [address] Dr. Dante Jules Hematocrit (Bld) [Volume fraction] 36.4 % Critically low 42.0-54.0 [facility] Comment on above: Performed By: #### V ITAD, PSAD #### [facility] [address] [place] [address] Dr. Dante Jules Hemoglobin (Bld) [Mass/Vol] 11.8 g/dL Critically low 14.0-18.0 [facility] Comment on above: Performed By: #### V ITAD, PSAD #### [facility] [address] [place] [address] Dr. Dante Jules IG # 0.02 10e3/ul Normal 0.00-0.03 [facility] Comment on above: Performed By: #### V ITAD, PSAD #### [facility] [address] [place] [address] Dr. Dante Jules IG % 0.2 % Normal 0.0-0.5 [facility] Comment on above: Performed By: #### V ITAD, PSAD #### [facility] [address] [place] [address] Dr. Dante Jules LYMPH # 2.3 103/ul Normal 1.2-3.8 [facility] Comment on above: Performed By: #### V ITAD, PSAD #### [facility] [address] [place] [address] Dr. Dante Jules Lymphocytes/100 WBC (Bld) 28.0 % Normal 20.5-60.0 [facility] Comment on above: Performed By: #### V ITAD, PSAD #### [facility] [address] [place] [address] Dr. Dante Jules MANUAL DIFF REQ NO Normal [facility] Comment on above: Performed By: #### V ITKRYSTLE, PSAD #### [facility] [address] [place] [address] Dr. Dante Jules MCH (RBC) [Entitic mass] 29.1 pg Normal 25.9-34.0 [facility] Comment on above: Performed By: #### V ITKRYSTLE, PSAD #### [facility] [address] [place] [address] Dr. Dante uJles MCHC (RBC) [Mass/Vol] 32.4 g/dL Normal 29.9-35.2 [facility] Comment on above: Performed By: #### V FELICIA, PSAD #### [facility] [address] [place] [address] Dr. Dante Jules MCV (RBC) [Entitic vol] 89.7 fL Normal 80.0-94.0 [facility] Comment on above: Performed By: #### V FELICIA PSAD #### [facility] [address] [place] [address] Dr. Dante Jules MONO # 0.7 103/ul Normal 0.3-0.8 [facility] Comment on above: Performed By: #### V FELICIA PSAD #### [facility] [address] [place] [address] Dr. Dante Jules Monocytes/100 WBC (Bld) 8.5 % Normal 1.7-12.0 [facility] Comment on above: Performed By: #### V FELICIA, PSAD #### [facility] [address] [place] [address] Dr. Dante Jules NEUT # 4.7 103/ul Normal 1.4-6.5 [facility] Comment on above: Performed By: #### V FELICIA, PSAD #### [facility] [address] [place] [address] Dr. Dante Jules Neutrophils/100 WBC (Bld) 57.8 % Normal 43.0-75.0 [facility] Comment on above: Performed By: #### V FELICIA, PSAD #### [facility] [address] [address] [address] Dante Jules Platelet mean volume (Bld) [Entitic vol] 9.9 fL Normal 9.5-13.5 [facility] Comment on above: Performed By: #### V FELICIA, PSAD #### [facility] [address] [place] [address] Dr. Dante Jules PLT 155 103/ul Normal 150-450 [facility] Comment on above: Performed By: #### V FELICIA, PSAD #### [facility] [address] [place] [address] Dr. Dante Jules RBC 4.06 106/ul Critically low 4.70-6.10 [facility] Comment on above: Performed By: #### V FELICIA PSAD #### [facility] [address] [place] [address] Dr. Dante Jules WBC 8.0 103/ul Normal 4.0-11.0 [facility] Comment on above: Performed By: #### Tiffani DUARTE, PSAD #### [facility] [address] [place] [address] Dr. Dante Jules PROF 14(COMP METB)on 022 Albumin [Mass/Vol] 3.1 g/dL Critically low 3.4-5.0 [facility] Comment on above: Performed By: #### C MP #### [facility] [address] [place] [address] Dr. Dante Jules Albumin/Globulin [Mass ratio] 0.7 {ratio} Normal [facility] Comment on above: Performed By: #### C MP #### [facility] [address] [place] [address] Dr. Dante Jules ALP [Catalytic activity/Vol] 112 U/L Normal 46-116 [facility] Comment on above: Performed By: #### C MP #### [facility] [address] [place] [address] Dr. Dante Jules ALT [Catalytic activity/Vol] 29 U/L Normal 16-63 [facility] Comment on above: Performed By: #### C MP #### [facility] [address] [address] [address] Dante Jules Anion gap [Moles/Vol] 13.7 mmol/L Normal [facility] Comment on above: Performed By: #### C MP #### [facility] [address] [place] [address] Dr. Dante Jules AST [Catalytic activity/Vol] 15 U/L Normal 15-37 [facility] Comment on above: Performed By: #### C MP #### [facility] [address] [address] [address] Dante Jules Bilirubin [Mass/Vol] 0.2 mg/dL Normal 0.2-1.3 [facility] Comment on above: Performed By: #### C MP #### [facility] [address] [place] [address] Dr. Dante Jules Calcium [Mass/Vol] 8.5 mg/dL Normal 8.5-10.1 [facility] Comment on above: Performed By: #### C MP #### [facility] [address] [place] [address] Dr. Dante Jules Chloride [Moles/Vol] 104 mmol/L Normal 98-107 [facility] Comment on above: Performed By: #### C MP #### [facility] [address] [place] [address] Dr. Dante Jules CO2 [Moles/Vol] 24.2 mmol/L Normal 22.0-30.0 [facility] Comment on above: Performed By: #### C MP #### [facility] [address] [place] [address] Dr. Dante Jules Creatinine [Mass/Vol] 1.09 mg/dL Normal 0.66-1.25 [facility] Comment on above: Performed By: #### C MP #### [facility] [address] [address] [address] Dante Jules EGFR-AF CONGOLESE >60 Normal >=60 [facility] Comment on above: Performed By: #### C MP #### [facility] [address] [place] [address] Dr. Dante Jules EGFR-NON AF CONGOLESE >60 Normal >=60 [facility] Comment on above: Performed By: #### C MP #### [facility] [address] [place] [address] Dr. Dante Jules Globulin (S) [Mass/Vol] 4.2 g/dL Normal [facility] Comment on above: Performed By: #### C MP #### [facility] [address] [address] [address] Dante Jules Glucose [Mass/Vol] 117 mg/dL Critically high 74-106 [facility] Comment on above: Performed By: #### C MP #### [facility] [address] [address] [address] Dante Jules Potassium [Moles/Vol] 3.9 mmol/L Normal 3.4-5.0 [facility] Comment on above: Performed By: #### C MP #### [facility] [address] [place] [address] Dr. Dante Jules Protein [Mass/Vol] 7.3 g/dL Normal 6.1-8.2 [facility] Comment on above: Performed By: #### C MP #### [facility] [address] [place] [address] Dr. Dante Jules Sodium [Moles/Vol] 138 mmol/L Normal 137-145 [facility] Comment on above: Performed By: #### C MP #### [facility] [address] [place] [address] Dr. Dante Jules Urea nitrogen [Mass/Vol] 22.0 mg/dL Critically high 7.0-18.0 [facility] Comment on above: Performed By: #### C MP #### [facility] [address] [address] [address] Dante Jules Urea nitrogen/Creatinine [Mass ratio] 20.2 mg/mg Normal [facility] Comment on above: Performed By: #### C MP #### [facility] [address] [place] [address] Dr. Dante Jules VITAMIN D 25 OHon 08-16-2021 VIT D 25-OH 31.9 ng/mL Normal [facility] Comment on above: Performed By: #### V FELICIA PSAD #### [facility] [address] [place] [address] Dr. Dante Jules VIT D RANGES SEE BELOW Normal [facility] Comment on above: Result Comment: <20 ng/mL Vit D deficient 20 - <30 ng/mL Vit D insufficient 30 - 100 ng/mL Vit D sufficient >100 ng/mL Potential Toxicity Performed By: #### V FELICIA PSAD #### [facility] [address] [place] [address] Dr. Dante Jules CBC AUTO DIFFon 03-13-2021 BASO # 0.0 103/ul Normal 0.0-0.1 [facility] Comment on above: Performed By: #### C BC #### [facility] [address] [place] [address] Dr. Dante Jules Basophils/100 WBC (Bld) 0.5 % Normal 0.2-2.0 [facility] Comment on above: Performed By: #### C BC #### [facility] [address] [place] [address] Dr. Dante Jules EO # 0.2 103/ul Normal 0.0-0.7 [facility] Comment on above: Performed By: #### C BC #### [facility] [address] [place] [address] Dr. Dante Jules Eosinophils/100 WBC (Bld) 2.5 % Normal 0.9-7.0 [facility] Comment on above: Performed By: #### C BC #### [facility] [address] [place] [address] Dr. Dante Jules Erythrocyte distribution width (RBC) [Ratio] 13.3 % Normal 11.0-15.0 [facility] Comment on above: Performed By: #### C BC #### [facility] [address] [place] [address] Dr. Dante Jules Hematocrit (Bld) [Volume fraction] 36.9 % Critically low 42.0-54.0 [facility] Comment on above: Performed By: #### C BC #### [facility] [address] [place] [address] Dr. Dante Jules Hemoglobin (Bld) [Mass/Vol] 12.0 g/dL Critically low 14.0-18.0 [facility] Comment on above: Performed By: #### C BC #### [facility] [address] [place] [address] Dr. Dante Jules IG # 0.01 10e3/ul Normal 0.00-0.03 [facility] Comment on above: Performed By: #### C BC #### [facility] [address] [place] [address] Dr. Dante Jules IG % 0.2 % Normal 0.0-0.5 [facility] Comment on above: Performed By: #### C BC #### [facility] [address] [place] [address] Dr. Dante Jules LYMPH # 1.4 103/ul Normal 1.2-3.8 [facility] Comment on above: Performed By: #### C BC #### [facility] [address] [place] [address] Dr. Dante Jules Lymphocytes/100 WBC (Bld) 24.4 % Normal 20.5-60.0 [facility] Comment on above: Performed By: #### C BC #### [facility] [address] [place] [address] Dr. Dante Jules MANUAL DIFF REQ NO Normal [facility] Comment on above: Performed By: #### C BC #### [facility] [address] [place] [address] Dr. Dante Jules MCH (RBC) [Entitic mass] 29.2 pg Normal 25.9-34.0 [facility] Comment on above: Performed By: #### C BC #### [facility] [address] [place] [address] Dr. Dante Jules MCHC (RBC) [Mass/Vol] 32.5 g/dL Normal 29.9-35.2 [facility] Comment on above: Performed By: #### C BC #### [facility] [address] [address] [address] Dante Jules MCV (RBC) [Entitic vol] 89.8 fL Normal 80.0-94.0 [facility] Comment on above: Performed By: #### C BC #### [facility] [address] [place] [address] Dr. Dante Jules MONO # 0.5 103/ul Normal 0.3-0.8 [facility] Comment on above: Performed By: #### C BC #### [facility] [address] [place] [address] Dr. Dante Jules Monocytes/100 WBC (Bld) 8.3 % Normal 1.7-12.0 [facility] Comment on above: Performed By: #### C BC #### [facility] [address] [place] [address] Dr. Dante Jules NEUT # 3.8 103/ul Normal 1.4-6.5 [facility] Comment on above: Performed By: #### C BC #### [facility] [address] [place] [address] Dr. Dante Jules Neutrophils/100 WBC (Bld) 64.1 % Normal 43.0-75.0 [facility] Comment on above: Performed By: #### C BC #### [facility] [address] [place] [address] Dr. Dante Jules Platelet mean volume (Bld) [Entitic vol] 10.1 fL Normal 9.5-13.5 [facility] Comment on above: Performed By: #### C BC #### [facility] [address] [place] [address] Dr. Dante Jules PLT 161 103/ul Normal 150-450 [facility] Comment on above: Performed By: #### C BC #### [facility] [address] [place], [place] [id number] Dr. Dante Jules RBC 4.11 106/ul Critically low 4.70-6.10 [facility] Comment on above: Performed By: #### C BC #### [facility] [address] [place] [address] Dr. Dante Jules WBC 5.9 103/ul Normal 4.0-11.0 [facility] Comment on above: Performed By: #### C BC #### [facility] [address] [place] [address] Dr. Dante Jules PROF 14(COMP METB)on 021 Albumin [Mass/Vol] 3.0 g/dL Critically low 3.5-5.0 [facility] Comment on above: Performed By: #### C MP #### [facility] [address] [place] [address] Dr. Dante Jules Albumin/Globulin [Mass ratio] 0.7 {ratio} Normal [facility] Comment on above: Performed By: #### C MP #### [facility] [address] [place] [address] Dr. Dante Jules ALP [Catalytic activity/Vol] 91 U/L Normal 38-126 [facility] Comment on above: Performed By: #### C MP #### [facility] [address] [place] [address] Dr. Dante Jules ALT [Catalytic activity/Vol] 30 U/L Normal 21-72 [facility] Comment on above: Performed By: #### C MP #### [facility] [address] [place] [address] Dr. Dnate Jules Anion gap [Moles/Vol] 10.1 mmol/L Normal [facility] Comment on above: Performed By: #### C MP #### [facility] [address] [place] [address] Dr. Dante Jules AST [Catalytic activity/Vol] 18 U/L Normal 17-59 [facility] Comment on above: Performed By: #### C MP #### [facility] [address] [place] [address] Dr. Dante Jules Bilirubin [Mass/Vol] 0.2 mg/dL Normal 0.2-1.3 [facility] Comment on above: Performed By: #### C MP #### [facility] [address] [place] [address] Dr. Dante Jules Calcium [Mass/Vol] 8.7 mg/dL Normal 8.4-10.2 [facility] Comment on above: Performed By: #### C MP #### [facility] [address] [address] [address] Dante Jules Chloride [Moles/Vol] 103 mmol/L Normal 98-107 [facility] Comment on above: Performed By: #### C MP #### [facility] [address] [address] [address] Dante Jules CO2 [Moles/Vol] 25.8 mmol/L Normal 22.0-30.[address] [facility] Comment on above: Performed By: #### C MP #### [facility] [address] [place] [address] Dr. Dante Jules Creatinine [Mass/Vol] 1.31 mg/dL Critically high 0.66-1.25 [facility] Comment on above: Performed By: #### C MP #### [facility] [address] [place] [address] Dr. Dante Jules EGFR-AF CONGOLESE >60 Normal >=[address] [facility] Comment on above: Performed By: #### C MP #### [facility] [address] [place] [address] Dr. Dante Jules EGFR-NON AF CONGOLESE 56 mL/min/1.73m2 Critically low >=60 [facility] Comment on above: Performed By: #### C MP #### [facility] [address] [place] [address] Dr. Dante Jules Globulin (S) [Mass/Vol] 4.2 g/dL Normal [facility] Comment on above: Performed By: #### C MP #### [facility] [address] [address] [address] Dante Jules Glucose [Mass/Vol] 132 mg/dL Critically high 74-106 [facility] Comment on above: Performed By: #### C MP #### [facility] [address] [place] [address] Dr. Dante Jules Potassium [Moles/Vol] 3.9 mmol/L Normal 3.4-5.0 [facility] Comment on above: Performed By: #### C MP #### [facility] [address] [address] [address] Dante Jules Protein [Mass/Vol] 7.2 g/dL Normal 6.1-8.2 [facility] Comment on above: Performed By: #### C MP #### [facility] [address] [place] [address] Dr. Dante Jules Sodium [Moles/Vol] 135 mmol/L Critically low 137-145 [facility] Comment on above: Performed By: #### C MP #### [facility] [address] [place] [address] Dr. Dante Jules Urea nitrogen [Mass/Vol] 14.0 mg/dL Normal 9.0-20.0 [facility] Comment on above: Performed By: #### C MP #### [facility] [address] [place] [address] Dr. Dante Jules Urea nitrogen/Creatinine [Mass ratio] 10.7 mg/mg Normal [facility] Comment on above: Performed By: #### C MP #### [facility] [address] [place] [address] Dr. Dante Jules [facility] SARS-CoV-2 (COVID-19) RNA PATRICIA+probe Ql (Unsp spec) Not detected Normal NOT DETECTED [facility] Comment on above: Result Comment: When diagnostic testing is negative, the possibility of a false negative should be considered in the context of a patient's recent exposures and the presence of clinical signs and symptoms consistent with SARS-CoV-2. This test is not yet approved or cleared by the [place] Food and Drug Administration (FDA). This test was developed by [employer], [place], [place]. The performance characteristics of this test were validated by [facility]. The results are not intended to be used as the sole means for clinical diagnosis or patient management decisions. [facility] is authorized under Clinical Laboratory Improvement Amendments (CLIA) to perform high- complexity testing. Performed By: #### C VDTBH #### [facility] [address] [place] [address] Dr. Dante Jules Vital Signs Date Time Vital Sign Value Performing Clinician Facility 07-06-2024 13:50-0500 Body height 152.4 cm Maria Luisa Bernard DPM Work Phone: [facility] 07-06-2024 13:50-0500 Body mass index (BMI) [Ratio] 29.29 kg/m2 Maria Luisa Bernard DPM Work Phone: [facility] 07-06-2024 13:50-0500 Body weight 68.04 kg Maria Luisajourdan Wagner DPM Work Phone: [facility] 07-03-2024 12:36-0500 Body mass index (BMI) [Ratio] 29.06 kg/m2 Chapin Cast 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: [facility] 07-03-2024 12:36-0500 Body temperature 98.71 [degF] Chapin Cast 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: [facility] 07-03-2024 12:36-0500 Body weight 72.08 kg Chapin Cast 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: [facility] 07-03-2024 12:36-0500 Diastolic blood pressure 80 mm[Hg] Chapin Cast 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: [facility] 07-03-2024 12:36-0500 Heart rate 83 /min Chapin Cast 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: [facility] 07-03-2024 12:36-0500 Respiratory rate 17 /min Chapin Cast 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: [facility] 07-03-2024 12:36-0500 SaO2% (BldA) [Mass fraction] 98 % Chapin Cast 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: [facility] 07-03-2024 12:36-0500 Systolic blood pressure 142 mm[Hg] Chapin Cast 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: [facility] 06-15-2024 10:33-0500 Body height 152.4 cm Maria Luisa Rusher DPM Work Phone: [facility] 06-15-2024 10:33-0500 Body mass index (BMI) [Ratio] 29.29 kg/m2 Maria Luisa Rusher DPM Work Phone: [facility] 06-15-2024 10:33-0500 Body weight 68.04 kg Maria Luisa Rusher DPM Work Phone: [facility] 05-27-2024 13:35-0500 Body height 152.4 cm Maria Luisa Rusher DPM Work Phone: [facility] 05-27-2024 13:35-0500 Body mass index (BMI) [Ratio] 29.29 kg/m2 Maria Luisa Rusher DPM Work Phone: [facility] 05-27-2024 13:35-0500 Body weight 68.04 kg Maria Luisa Rusher DPM Work Phone: [facility] 05-07-2024 13:37-0500 Body height 152.4 cm Maria Luisa Rusher DPM Work Phone: [facility] 05-07-2024 13:37-0500 Body mass index (BMI) [Ratio] 29.29 kg/m2 Maria Luisa Rusher DPM Work Phone: [facility] 05-07-2024 13:37-0500 Body weight 68.04 kg Maria Luisa Rusher DPM Work Phone: [facility] 04-20-2024 15:47-0500 Body height 152.4 cm Maria Luisa Rusher DPM Work Phone: [facility] 04-20-2024 15:47-0500 Body mass index (BMI) [Ratio] 29.29 kg/m2 Maria Luisa Rusher DPM Work Phone: [facility] 04-20-2024 15:47-0500 Body weight 68.04 kg Maria Luisa Rusher DPM Work Phone: [facility] 04-03-2024 12:40-0500 Body mass index (BMI) [Ratio] 29.45 kg/m2 Chapin Cast 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: [facility] 04-03-2024 12:40-0500 Body weight 73.03 kg Chapin Cast 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: [facility] 04-03-2024 12:40-0500 Diastolic blood pressure 57 mm[Hg] Chapin Cast 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: [facility] 04-03-2024 12:40-0500 Heart rate 82 /min Chapin Cast 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: [facility] 04-03-2024 12:40-0500 Respiratory rate 16 /min Chapin Cast 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: [facility] 04-03-2024 12:40-0500 SaO2% (BldA) [Mass fraction] 98 % Chapin Cast 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: [facility] 04-03-2024 12:40-0500 Systolic blood pressure 132 mm[Hg] Chapin Cast 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: [facility] 03-31-2024 09:35-0500 Body height 152.4 cm Maria Luisa Wagner DPM Work Phone: [facility] 03-31-2024 09:35-0500 Body mass index (BMI) [Ratio] 29.29 kg/m2 Maria Luisa Wagner DPM Work Phone: [facility] 03-31-2024 09:35-0500 Body weight 68.04 kg Maria Luisa Wagner DPM Work Phone: [facility] 02-07-2024 10:34-0400 Body height 152.4 cm Maria Luisa Wagner DPM Work Phone: [facility] 02-07-2024 10:34-0400 Body mass index (BMI) [Ratio] 29.29 kg/m2 Maria uLisa Wagner DPM Work Phone: [facility] 02-07-2024 10:34-0400 Body weight 68.04 kg Maria Luisajourdan Wagner DPM Work Phone: [facility] 01-28-2024 14:32-0400 Body height 152.4 cm Maria Luisa Wagner DPM Work Phone: [facility] 01-28-2024 14:32-0400 Body mass index (BMI) [Ratio] 29.29 kg/m2 Maria Luisa Rusher DPM Work Phone: [facility] 01-28-2024 14:32-0400 Body weight 68.04 kg Maria Luisa Rusher DPM Work Phone: [facility] 01-13-2024 12:48-0400 Body height 152.4 cm Maria Luisa Wagner DPM Work Phone: [facility] 01-13-2024 12:48-0400 Body mass index (BMI) [Ratio] 29.29 kg/m2 Maria Luisa Wagner DPM Work Phone: [facility] 01-13-2024 12:48-0400 Body temperature 98.1 [degF] Maria Luisa Wagner DPM Work Phone: [facility] 01-13-2024 12:48-0400 Body weight 68.04 kg Maria Luisa Wagner DPM Work Phone: [facility] 01-09-2024 13:31-0400 Body height 154.94 cm [facility] 01-09-2024 13:31-0400 Body mass index (BMI) [Ratio] 23.6 kg/m2 [facility] 01-09-2024 13:31-0400 Body temperature 98.1 [degF] [facility] 01-09-2024 13:31-0400 Body weight 56.69 kg [facility] 01-09-2024 13:31-0400 Diastolic blood pressure 65 mm[Hg] [facility] 01-09-2024 13:31-0400 Heart rate 72 /min [facility] 01-09-2024 13:31-0400 Respiratory rate 18 /min [facility] 01-09-2024 13:31-0400 SaO2% (BldA) [Mass fraction] 97 % [facility] 01-09-2024 13:31-0400 Systolic blood pressure 113 mm[Hg] [facility] 10-25-2023 08:31-0400 Body mass index (BMI) [Ratio] 27.98 kg/m2 Chapin Cast 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: [facility] 10-25-2023 08:31-0400 Body temperature 97.59 [degF] Chapin Cast 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: [facility] 10-25-2023 08:31-0400 Body weight 69.4 kg Chapin Cast 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: [facility] 10-25-2023 08:31-0400 Diastolic blood pressure 68 mm[Hg] Chapin Cast 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: [facility] 10-25-2023 08:31-0400 Heart rate 98 /min Chapin Cast 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: [facility] 10-25-2023 08:31-0400 Respiratory rate 21 /min Chapin Cast 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: [facility] 10-25-2023 08:31-0400 Systolic blood pressure 139 mm[Hg] Chapin Cast 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: [facility] 10-04-2023 09:00-0400 Body mass index (BMI) [Ratio] 27.98 kg/m2 Chapin Cast 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: [facility] 10-04-2023 09:00-0400 Body temperature 97.7 [degF] Chapin Cast 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: [facility] [employer] [facility] 10-04-2023 09:00-0400 Body weight 69.4 kg Chapin Cast APRN-CELLO TEACHER Work Phone: [facility] [employer] [facility] 10-04-2023 09:00-0400 Diastolic blood pressure 68 mm[Hg] Chapin Cast APRN-CELLO TEACHER Work Phone: [facility] 10-04-2023 09:00-0400 Heart rate 72 /min Chapin Cast APRN-CELLO TEACHER Work Phone: [facility] [employer] [facility] 10-04-2023 09:00-0400 Respiratory rate 20 /min Chapin Cast APRN-CELLO TEACHER Work Phone: [facility] 10-04-2023 09:00-0400 SaO2% (BldA) [Mass fraction] 98 % Chapin Cast APRN-CELLO TEACHER Work Phone: [facility] [employer] [facility] 10-04-2023 09:00-0400 Systolic blood pressure 138 mm[Hg] Chapin Cast APRN-CELLO TEACHER Work Phone: [facility] 07-18-2023 09:07-0500 Body mass index (BMI) [Ratio] 28.9 kg/m2 Chapin Cast APRN-CELLO TEACHER Work Phone: [facility] [employer] [facility] 07-18-2023 09:07-0500 Body temperature 97 [degF] Chapin Cast APRN-CELLO TEACHER Work Phone: [facility] [employer] [facility] 07-18-2023 09:07-0500 Body weight 71.67 kg Chapin Cast APRN-CELLO TEACHER Work Phone: [facility] 07-18-2023 09:07-0500 Diastolic blood pressure 88 mm[Hg] Chapin Cast APRN-CELLO TEACHER Work Phone: [facility] [employer] [facility] 07-18-2023 09:07-0500 Heart rate 78 /min Chapin Cast 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: [facility] 07-18-2023 09:07-0500 Respiratory rate 23 /min Chapin Cast DONNY-CELLO TEACHER Work Phone: [facility] 07-18-2023 09:07-0500 Systolic blood pressure 128 mm[Hg] Chapin Cast DONNY-CELLO TEACHER Work Phone: [facility] Encounters Encounter Date Encounter Type Care Provider Facility Start: 07-06-2024 End: 07-06-2024 Bamboo flowsheet Maria Luisa Wagner DPM Work Phone: [facility] Start: 07-06-2024 End: 07-06-2024 Bamboo flowsheet Maria Luisa Wagner DPM Work Phone: [facility] Start: 07-06-2024 End: 07-06-2024 Patient encounter procedure Maria Luisa Wagner DPM Work Phone: [facility] Comment on above: Stage II pressure ul cer of right heel (CMS/HCC) (Primary Dx); Hereditary sensory-motor neuropathy, type I; Lumbar spina bifida without hydrocephalus (CMS/HCC); Flaccid paraplegia, incomplete, at lumbar level (CMS/HCC) Start: 07-06-2024 End: 07-06-2024 ambulatory MARIA LUISA WAGNER Not Available Start: 07-03-2024 End: 07-08-2024 Continuing Care Chapin Enrique Cast DONNY-CELLO TEACHER Work Phone: [facility] Comment on above: Primary hypertension (Primary Dx); Chronic constipation; Intellectual disability; Impulse control disorder; Mixed hyperlipidemia Start: 06-29-2024 End: 06-29-2024 Clinical Support Annette Mills MD Work Phone: [facility] Comment on above: Suprapubic catheter (CMS-HCC) (Primary Dx) Start: 06-29-2024 End: 06-29-2024 ambulatory ANNETTE MILLS [facility] Start: 06-15-2024 End: 06-15-2024 Bamboo flowsheet Maria Luisa Wagner DPM Work Phone: [facility] Start: 06-15-2024 End: 06-15-2024 Bamboo flowsheet Maria Luisa Wagner DPM Work Phone: [facility] Start: 06-15-2024 End: 06-15-2024 Patient encounter procedure Maria Luisa Wagner DPM Work Phone: [facility] Comment on above: Stage II pressure ul cer of right heel (CMS/HCC) (Primary Dx); Hereditary sensory-motor neuropathy, type I; Lumbar spina bifida without hydrocephalus (CMS/HCC); Flaccid paraplegia, incomplete, at lumbar level (CMS/HCC) Start: 06-15-2024 End: 06-15-2024 ambulatory MARIA LUISA WAGNER Not Available Start: 06-09-2024 End: 06-09-2024 ambulatory Gisela Palacios MD Work Phone: [facility] Comment on above: Spastic neurogenic b ladder (Primary Dx) Start: 05-27-2024 End: 05-27-2024 Bamboo flowsheet Maria Luisa Wagner DPM Work Phone: [facility] Start: 05-27-2024 End: 05-27-2024 Bamboo flowsheet Maria Luisa Wagner DPM Work Phone: [facility] Start: 05-27-2024 End: 05-27-2024 Patient encounter procedure Maria Luisa Wagner DPM Work Phone: [facility] Comment on above: Stage II pressure ul cer of right heel (CMS/HCC) (Primary Dx); Hereditary sensory-motor neuropathy, type I; Lumbar spina bifida without hydrocephalus (CMS/HCC); Flaccid paraplegia, incomplete, at lumbar level (CMS/HCC) Start: 05-27-2024 End: 05-27-2024 ambulatory MARIA LUISA WAGNER Not Available Start: 05-25-2024 End: 05-25-2024 Orders Only Chapin Nunez Csat 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 Start: 05-22-2024 End: 05-25-2024 Refill Chapin Cast 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: [facility] Comment on above: 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; Impulse control disorder; Intellectual disability Start: 05-08-2024 End: 05-11-2024 Refill Chapin Cast 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: [facility] Start: 05-07-2024 End: 05-07-2024 Bamboo flowsheet Maria Luisa Wagner DPM Work Phone: [facility] Start: 05-07-2024 End: 05-07-2024 Bamboo flowsheet Maria Luisa Wagner DPM Work Phone: [facility] Start: 05-07-2024 End: 05-07-2024 Patient encounter procedure Maria Luisa Wagner DPM Work Phone: [facility] Comment on above: Stage II pressure ul cer of right heel (CMS/HCC) (Primary Dx); Hereditary sensory-motor neuropathy, type I; Lumbar spina bifida without hydrocephalus (CMS/HCC); Flaccid paraplegia, incomplete, at lumbar level (CMS/HCC) Start: 05-07-2024 End: 05-07-2024 ambulatory MARIA LUISA WAGNER Not Available Start: 04-20-2024 End: 04-20-2024 Patient encounter procedure Maria Luisa Wagner DPM Work Phone: [facility] Comment on above: Stage II pressure ul cer of right heel (CMS/HCC) (Primary Dx); Hereditary sensory-motor neuropathy, type I; Lumbar spina bifida without hydrocephalus (CMS/HCC); Flaccid paraplegia, incomplete, at lumbar level (CMS/HCC) Start: 04-20-2024 End: 04-20-2024 ambulatory MARIA LUISA WAGNER Not Available Start: 04-20-2024 End: 04-20-2024 Bamboo flowsheet Maria Luisa Wagner DPM Work Phone: [facility] Start: 04-20-2024 End: 04-20-2024 Bamboo flowsheet Maria Luisa Wagner DPM Work Phone: [facility] Start: 04-14-2024 End: 04-14-2024 Clinical Support Gisela Palacios MD Work Phone: [facility] Comment on above: Suprapubic catheter (CMS-HCC) (Primary Dx) Start: 04-14-2024 End: 04-14-2024 ambulatory GISELA PALACIOS [facility] Start: 04-08-2024 End: 04-08-2024 ambulatory [facility] Start: 04-08-2024 End: 04-08-2024 ambulatory [facility] Comment on above: Benign essential HTN (Primary Dx); Need for hepatitis C screening test Start: 04-03-2024 End: 04-07-2024 ambulatory [facility] Comment on above: Encounter for immuni zation (Primary Dx) Benign essential HTN (Primary Dx); Chronic constipation; Impulse control disorder; Intellectual disability; Mixed hyperlipidemia Start: 03-31-2024 End: 03-31-2024 Bamboo flowsheet Maria Luisa Wagner DPM Work Phone: [facility] Start: 03-31-2024 End: 03-31-2024 Bamboo flowsheet Maria Luisa Wagner DPM Work Phone: [facility] Start: 03-31-2024 End: 03-31-2024 Patient encounter procedure Maria Luisa Wagner DPM Work Phone: [facility] Comment on above: Stage II pressure ul cer of right heel (CMS/HCC) (Primary Dx); Hereditary sensory-motor neuropathy, type I; Lumbar spina bifida without hydrocephalus (CMS/HCC); Flaccid paraplegia, incomplete, at lumbar level (CMS/HCC) Start: 03-31-2024 End: 03-31-2024 ambulatory MARIA LUISA WAGNER Not Available Start: 03-27-2024 End: 03-30-2024 Refill Chapin Cast APRN-CELLO TEACHER Work Phone: [facility] Internal Medicine - Family [facility] Start: 03-25-2024 End: 03-25-2024 ambulatory ANNETTE MILLS [facility] Comment on above: Spastic neurogenic b ladder (Primary Dx) Start: 03-25-2024 End: 03-25-2024 NO CHARGE LEVEL OF SERVICE Annette Mills MD Work Phone: [facility] Start: 03-12-2024 End: 03-12-2024 ambulatory [facility] Start: 03-10-2024 End: 03-10-2024 NO CHARGE LEVEL OF SERVICE Gisela Palacios MD Work Phone: [facility] Start: 03-10-2024 End: 03-10-2024 ambulatory GISELA PALACIOS [facility] Comment on above: Suprapubic catheter ([facility]) (Primary Dx) Start: 02-28-2024 End: 02-28-2024 Bamboo flowsheet Maria Luisa Wagner DPM Work Phone: [facility] Start: 02-28-2024 End: 02-28-2024 Bamboo flowsheet Maria Luisa Wagner DPM Work Phone: [facility] Start: 02-28-2024 End: 02-28-2024 Telephone encounter Mandi AGUILAR [facility] Start: 02-28-2024 End: 02-28-2024 Patient encounter procedure Maria Luisa Wagner DPM Work Phone: [facility] Comment on above: Stage II pressure ul cer of right heel (CMS/HCC) (Primary Dx); Hereditary sensory-motor neuropathy, type I; Lumbar spina bifida without hydrocephalus (CMS/HCC); Flaccid paraplegia, incomplete, at lumbar level (CMS/HCC) Start: 02-28-2024 End: 02-28-2024 ambulatory MARIA LUISA WAGNER Not Available Start: 02-25-2024 End: 02-25-2024 NO CHARGE LEVEL OF SERVICE Gisela Palacios MD Work Phone: [facility] Start: 02-25-2024 End: 02-25-2024 ambulatory GISELA PALACIOS [facility] Comment on above: Suprapubic catheter ([facility]) (Primary Dx) Start: 02-11-2024 End: 02-11-2024 Refill Chapin Cast 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: [facility] Internal Medicine - Family [facility] Comment on above: Osteoarthritis of mu ltiple joints, unspecified osteoarthritis type Start: 02-07-2024 End: 02-07-2024 Bamboo flowsheet Maria Luisa Wagner DPM Work Phone: [facility] Start: 02-07-2024 End: 02-07-2024 Bamboo flowsheet Maria Luisa Wagner DPM Work Phone: [facility] Start: 02-07-2024 End: 02-07-2024 ambulatory MARIA LUISA WAGNER Not Available Start: 02-07-2024 End: 02-07-2024 Patient encounter procedure Maria Luisa Wagner DPM Work Phone: [facility] Comment on above: Stage II pressure ul cer of right heel (CMS/HCC) (Primary Dx); Hereditary sensory-motor neuropathy, type I; Lumbar spina bifida without hydrocephalus (CMS/HCC); Flaccid paraplegia, incomplete, at lumbar level (CMS/HCC) Start: 01-28-2024 End: 01-28-2024 Patient encounter procedure Maria Luisa Wagner DPM Work Phone: [facility] Comment on above: Stage II pressure ul cer of right heel (CMS/HCC) (Primary Dx); Hereditary sensory-motor neuropathy, type I; Lumbar spina bifida without hydrocephalus (CMS/HCC); Flaccid paraplegia, incomplete, at lumbar level ([facility]) Start: 01-28-2024 End: 01-28-2024 ambulatory MARIA LUISA WAGNER Not Available Start: 01-28-2024 End: 01-28-2024 Bamboo flowsheet Maria Luisa Wagner DPM Work Phone: [facility] Start: 01-28-2024 End: 01-28-2024 Bamboo flowsheet Maria Luisa Wagner DPM Work Phone: [facility] Start: 01-27-2024 End: 01-27-2024 ambulatory ANNETTE MILLS [facility] Comment on above: Suprapubic catheter ([facility]) (Primary Dx) Start: 01-27-2024 End: 01-27-2024 NO CHARGE LEVEL OF SERVICE Annette Mills MD Work Phone: [facility] Start: 01-13-2024 End: 01-13-2024 Bamboo flowsheet Maria Luisa Wagner DPM Work Phone: [facility] Start: 01-13-2024 End: 01-13-2024 Bamboo flowsheet Maria Luisa Wanger DPM Work Phone: [facility] Start: 01-13-2024 End: 01-13-2024 Patient encounter procedure Maria Luisa Wagner DPM Work Phone: [facility] Comment on above: Stage II pressure ul cer of right heel ([facility]) (Primary Dx); Hereditary sensory-motor neuropathy, type I; Lumbar spina bifida without hydrocephalus ([facility]); Flaccid paraplegia, incomplete, at lumbar level ([facility]) Start: 01-13-2024 End: 01-13-2024 ambulatory MARIA LUISA WAGNER Not Available Start: 01-10-2024 End: 01-10-2024 ambulatory CHAPINTahira CAST [facility] Start: 01-10-2024 End: 01-10-2024 Office outpatient visit 15 minutes Chapin Cast 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: [facility] Internal Medicine - [facility] Comment on above: COVID-19 (Primary Dx ) Start: 01-09-2024 End: 01-09-2024 ambulatory [facility] Work Phone: Start: 01-09-2024 End: 01-09-2024 Patient encounter procedure On License [facility] Work Phone: Start: 01-09-2024 End: 01-09-2024 ambulatory [facility] Work Phone: Start: 01-09-2024 End: 01-09-2024 Patient encounter procedure On License Of [facility] Work Phone: Start: 01-08-2024 End: 01-08-2024 Refill Chapin Cast 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: [facility] - [facility] Comment on above: Pressure ulcer of [facility], stage 1 Start: 01-07-2024 End: 01-07-2024 NO CHARGE LEVEL OF SERVICE Gisela Palacios MD Work Phone: [facility] Start: 01-07-2024 End: 01-07-2024 ambulatory GISELA PALACIOS [facility] Comment on above: Suprapubic catheter ([facility]) (Primary Dx) Start: 01-07-2024 End: 01-07-2024 ambulatory CELIO Nunez KARELY [facility] Start: 01-03-2024 End: 01-06-2024 Refill Chapin Cast 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: [facility] Internal Medicine - Family [facility] Start: 01-03-2024 End: 01-03-2024 ambulatory MARIA LUISA WAGNER Not Available Start: 12-31-2023 End: 01-01-2024 Refill Dominique Hoskins 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: [facility] Start: 12-30-2023 End: 12-31-2023 Refill Chapin Enrique Cast 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: [facility] - [facility] Comment on above: Chronic constipation Start: 12-27-2023 End: 12-27-2023 ambulatory MARIA LUISA A RUSHER Not Available Start: 12-20-2023 End: 12-20-2023 ambulatory MARIA LUISA A RUSHER Not Available Start: 12-20-2023 End: 12-20-2023 ambulatory CELIO Nunez KARELY [facility] Start: 12-13-2023 End: 12-13-2023 ambulatory MARIA LUISA A RUSHER Not Available Start: 12-10-2023 End: 12-10-2023 NO CHARGE LEVEL OF SERVICE Gisela Palacios MD Work Phone: [facility] Start: 12-10-2023 End: 12-10-2023 ambulatory GISELA PALACIOS [facility] Comment on above: Suprapubic catheter ([facility]) (Primary Dx) Start: 12-05-2023 End: 12-05-2023 ambulatory MARIA LUISA A RUSHER Not Available Start: 11-29-2023 End: 11-30-2023 Refill Chapin Cast 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: [facility] Internal Medicine - [facility] Start: 11-26-2023 End: 11-26-2023 ambulatory MARIA LUISA A RUSHER Not Available Start: 11-12-2023 End: 11-12-2023 NO CHARGE LEVEL OF SERVICE Gisela Palacios MD Work Phone: [facility] Start: 11-12-2023 End: 11-12-2023 ambulatory GISELA PALACIOS [facility] Comment on above: Suprapubic catheter ([facility]) (Primary Dx) Start: 11-06-2023 End: 11-06-2023 ambulatory [facility] Start: 11-06-2023 End: 11-06-2023 ambulatory [facility] Comment on above: Mixed hyperlipidemia (Primary Dx); Primary hypertension; Screening for diabetes mellitus; Low ferritin Start: 11-05-2023 End: 11-05-2023 ambulatory MARIA LUISA A RUSHER Not Available Start: 10-25-2023 End: 10-28-2023 ambulatory Chapin RATLIFF Work Phone: [facility] Internal Medicine - Family [facility] Start: 10-25-2023 End: 10-28-2023 Patient encounter procedure Chapin RATLIFF Work Phone: [facility] Medicine - [facility] Comment on above: Medicare annual well ness visit, subsequent (Primary Dx) Start: 10-15-2023 End: 10-15-2023 NO CHARGE LEVEL OF SERVICE Gisela Palacios MD Work Phone: [facility] Start: 10-15-2023 End: 10-15-2023 ambulatory GISELA PALACIOS [facility] Comment on above: Suprapubic catheter ([facility]) (Primary Dx) Start: 10-15-2023 End: 10-15-2023 ambulatory MARIA LUISA A RUSHER Not Available Start: 10-04-2023 End: 10-21-2023 Continuing Care Chapin RATLIFF Work Phone: [facility] Internal Medicine - [facility] Comment on above: Primary hypertension (Primary Dx); Mixed hyperlipidemia; Intellectual disability; Impulse control disorder in adult; Chronic constipation Start: 09-24-2023 End: 09-24-2023 ambulatory MARIA LUISA A RUSHER Not Available Start: 09-10-2023 End: 09-10-2023 ambulatory Gisela Palacios MD Work Phone: [facility] Comment on above: Suprapubic catheter ([facility]) (Primary Dx) Start: 09-03-2023 End: 09-03-2023 ambulatory MARIA LUISA A RUSHER Not Available Start: 08-13-2023 End: 08-13-2023 NO CHARGE LEVEL OF SERVICE Gisela Palacios MD Work Phone: [facility] Start: 08-13-2023 End: 08-13-2023 ambulatory GISELA PALACIOS [facility] Comment on above: Spastic neurogenic b ladder (Primary Dx) Start: 08-09-2023 End: 08-09-2023 ambulatory MARIA LUISA Francesca BERNARD Not Available Start: 07-19-2023 End: 07-19-2023 ambulatory MARIA LUISA Francesca BERNARD Not Available Start: 07-09-2023 Telephone encounter Kelly Vides [facility] Start: 07-09-2023 End: 07-09-2023 ambulatory GISELA PALACIOS [facility] Comment on above: Suprapubic catheter ([facility]) (Primary Dx) Start: 07-09-2023 End: 07-09-2023 NO CHARGE LEVEL OF SERVICE Gisela Palacios MD Work Phone: [facility] Start: 07-05-2023 Refill Chapin gannon 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: [facility] Internal Medicine - Family [facility] Comment on above: 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; Impulse control disorder; Intellectual disability Falls, sequela (Prim rossana Dx); Osteoarthritis of multiple joints, unspecified osteoarthritis type; Primary hypertension; Mixed hyperlipidemia; Chronic constipation; Impulse control disorder Start: 06-21-2023 End: 06-21-2023 ambulatory CELIO Nunez [facility] Start: 06-16-2023 Letter encounter Elias barney Start: 06-11-2023 End: 06-11-2023 ambulatory Gisela Palacios MD Work Phone: [facility] Comment on above: Suprapubic catheter ([facility]) (Primary Dx) Start: 11-30-2022 End: 12-03-2022 ambulatory UNKNOWN PROVIDER Facility:[facility] Start: 11-30-2022 End: 12-03-2022 Patient encounter procedure Dora Alvarado DDS Work Phone: [facility] Start: 10-31-2021 End: 11-01-2021 ambulatory CHAPIN CAST Facility: Start: 10-24-2021 End: 10-25-2021 ambulatory [facility] Facility:H1 Start: 09-29-2021 End: 10-02-2021 Patient encounter procedure Derek Nguyen DDS Work Phone: [facility] Start: 09-27-2021 Telephone encounter Mary Galarza [facility] Pre Surgical Evaluation Comment on above: Pre-surgical Evaluat ion (ANESTHESIA ATTESTATION FOR DENTAL SURGERY SCANNED IN [facility] ) Start: 09-26-2021 Telephone encounter Jenny Rolon RN [facility] Pre Surgical Evaluation Comment on above: Pre-surgical Evaluat ion (DD adult dental restorations 09/29 under GA at [place]. OSH H+P under media director. Request to main for anesthesia consent - see future encounter. PSE RN spoke to [facility] confirmed NPO except clears until, [place] address, and 1100 arrival time. ) Start: 09-20-2021 Telephone encounter Radha galarza RN [facility] Pre [facility] Comment on above: Pre-surgical Evaluat ion (Pre-op COVID testing not needed) Pre-surgical Evaluat ion (Outside records received) Start: 09-10-2021 Letter encounter Elias mary jo Start: 08-16-2021 End: 08-17-2021 ambulatory [facility] Facility:H1 Start: 03-13-2021 End: 03-14-2021 ambulatory [facility] Facility:H1 Start: 03-01-2021 End: 03-01-2021 [facility] Facility: Procedures Date Procedure Procedure Detail Performing Clinician Start: 02-25-2024 Follow-up visit Follow-up GISELA PALACIOS Start: 10-25-2023 Adult depression scr eening assessment [facility] 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 Dante Jules Start: 12-17-2016 Colonoscopy Plan of Treatment Date Care Activity Detail Author Start: 08-13-2032 Tetanus vaccination Tetanus (T d or Tdap) [facility]oster [facility] Start: 02-16-2032 Screening for malign ant neoplasm of colon [facility] Start: 12-17-2026 Screening for malign ant neoplasm of colon [facility] Start: 10-24-2026 Lipid panel [facility] Start: 04-08-2025 Tobacco Screening Tobacco Screening [facility] Start: 04-07-2025 Tobacco Screening Tobacco Screening [facility] Start: 04-03-2025 Adult BMI Screening Adult BMI Screen ing [facility] Start: 03-12-2025 Tobacco Screening Tobacco Screening [facility] Start: 01-09-2025 Tobacco Screening Tobacco Screening [facility] Start: 10-27-2024 Tobacco Screening Tobacco Screening [facility] Start: 10-24-2024 Adult BMI Screening Adult BMI Screen ing [facility] Start: 10-24-2024 Depression Screening Depression Scre ening [facility] Start: 07-27-2024 End: 07-27-2024 Patient encounter procedure 07/27/2024 10:45 AM EDT Office Visit [facility] [address] [place] [phone] Maria Luisa Wagner DPM [address] [place] [address] [facility] Start: 07-21-2024 End: 07-21-2024 Clinical Support 07/21/2024 9:00 AM EST Clinical Support [facility] [address] [place] [address] [place] [address] Gisela Palacios MD [address] [place] [id number] [facility] Start: 07-17-2024 Adult BMI Screening Adult BMI Screen ing [facility] Start: 07-17-2024 Tobacco Screening Tobacco Screening [facility] Start: 07-06-2024 End: 07-06-2024 Patient encounter procedure 07/06/2024 1:45 PM EST Office Visit [facility] [address] [place] [phone] Maria Luisa Wagner, DPM [address] [place], [place] [phone] [facility] Comment on above: Arrived Start: 07-06-2024 End: 07-06-2024 Patient encounter procedure 07/06/2024 8:45 AM EST Office Visit [facility] [address] [place] [phone] Maria Luisa Wagner, DPM [address] [place], [place] [phone] [facility] Start: 06-30-2024 End: 06-30-2024 Clinical Support 06/30/2024 10:00 AM EST Clinical Support [facility] [address] [place] [phone] Gisela Palacios MD [address] [place] [id number] [facility] Start: 06-29-2024 End: 06-29-2025 ASPIRATION BLADDER INSERT SUPRAPUBIC CATHETER ASPIRATION BLADDER INSERT SUPRAPUBIC CATHETER Procedures Routine Suprapubic catheter ([facility]) Expected: 06/29/2024, Expires: 06/29/2025 [facility] Work Phone: Comment on above: Expected: 06/29/2024 , Expires: 06/29/2025 Start: 06-15-2024 End: 06-15-2024 Patient encounter procedure [facility] Comment on above: Arrived Start: 06-09-2024 End: 06-09-2025 ASPIRATION BLADDER INSERT SUPRAPUBIC CATHETER ASPIRATION BLADDER INSERT SUPRAPUBIC CATHETER Procedures Routine Spastic neurogenic bladder Expected: 06/09/2024, Expires: 06/09/2025 [facility] Work Phone: Comment on above: Expected: 06/09/2024 , Expires: 06/09/2025 Start: 06-09-2024 End: 06-09-2024 ambulatory 06/09/2024 10:30 AM EST Support Visit [facility] [address] [place] [phone] Gisela Palacios MD [address] [place] [address] [phone] [facility] Start: 05-27-2024 End: 05-27-2024 Patient encounter procedure [facility] Comment on above: Arrived Start: 05-25-2024 End: 05-25-2024 ambulatory 05/25/2024 9:30 AM EST Support Visit [facility] [address] [place] [phone] Silverio Almanzar Jr., MD [address] [place] [address] [phone] [facility] Start: 05-07-2024 End: 05-07-2024 Patient encounter procedure [facility] Comment on above: Arrived Start: 04-20-2024 End: 04-20-2024 Patient encounter procedure [facility] Comment on above: Arrived Start: 04-14-2024 End: 04-14-2025 ASPIRATION BLADDER INSERT SUPRAPUBIC CATHETER ASPIRATION BLADDER INSERT SUPRAPUBIC CATHETER Procedures Routine Suprapubic catheter ([facility]) Expected: 04/14/2024, Expires: 04/14/2025 [facility] Work Phone: Comment on above: Expected: 04/14/2024 , Expires: 04/14/2025 Start: 04-14-2024 End: 04-14-2024 Clinical Support [facility] Start: 04-08-2024 End: 04-08-2024 Clinical Support 04/08/2024 8:30 AM EST Clinical Support [facility] [address] [place] [address] [facility] Start: 03-25-2024 End: 03-25-2025 ASPIRATION BLADDER INSERT SUPRAPUBIC CATHETER ASPIRATION BLADDER INSERT SUPRAPUBIC CATHETER Procedures Routine Spastic neurogenic bladder Expected: 03/25/2024, Expires: 03/25/2025 [facility] Work Phone: Comment on above: Expected: 03/25/2024 , Expires: 03/25/2025 Start: 03-25-2024 End: 03-25-2024 ambulatory 03/25/2024 10:30 AM EST Support Visit [facility] [address] [place] [phone] Annette Mills MD [address] [place] [phone] [facility] Start: 03-24-2024 End: 03-24-2024 ambulatory 03/24/2024 9:00 AM EST Support Visit [facility] [address] [place] [address] [place] [phone] Gisela Palacios MD [address] [place] [phone] [facility] Start: 03-22-2024 Adult BMI Screening Adult BMI Screen ing [facility] Start: 03-22-2024 Tobacco Screening Tobacco Screening [facility] Start: 03-12-2024 End: 03-12-2024 Patient encounter procedure 03/12/2024 3:30 PM EDT Office Visit [facility] [address] [place] [phone] Maria Luisa Wagner DPM [address] [place] [address] [facility] Start: 02-28-2024 End: 02-28-2024 Patient encounter procedure 02/28/2024 10:30 AM EDT Office Visit [facility] [address] [place] [phone] Maria Luisa Wagner DPM [address] [place], [place] [phone] Arrived [facility] Comment on above: Arrived Start: 02-25-2024 End: 02-24-2025 ASPIRATION BLADDER INSERT SUPRAPUBIC CATHETER ASPIRATION BLADDER INSERT SUPRAPUBIC CATHETER Procedures Routine Suprapubic catheter ([facility]) Expected: 02/25/2024, Expires: 02/24/2025 [facility] Work Phone: Comment on above: Expected: 02/25/2024 , Expires: 02/24/2025 Start: 02-25-2024 End: 02-25-2024 ambulatory 02/25/2024 9:00 AM EDT Support Visit [facility] [address] [place] [phone] Gisela Palacios MD [address] [place] [phone] [facility] Start: 02-21-2024 End: 02-21-2024 Patient encounter procedure 02/21/2024 10:30 AM EDT Office Visit [facility] [address] [place] [phone] Maria Luisa Wagner DPM [address] [place], [place] [phone] [facility] Start: 01-28-2024 End: 01-28-2024 Patient encounter procedure [facility] Comment on above: Arrived Start: 01-27-2024 End: 01-26-2025 ASPIRATION BLADDER INSERT SUPRAPUBIC CATHETER ASPIRATION BLADDER INSERT SUPRAPUBIC CATHETER Procedures Routine Suprapubic catheter ([facility]) Expected: 01/27/2024, Expires: 01/26/2025 [facility] Work Phone: Comment on above: Expected: 01/27/2024 , Expires: 01/26/2025 Start: 01-27-2024 End: 01-27-2024 ambulatory 01/27/2024 10:30 AM EDT Support Visit [facility] [address] [place] [address] [place] [phone] Annette Mills MD [address] [place] [phone] [facility] Start: 01-19-2024 COVID-19 Vaccine ( season) COVID-19 Vaccine ( season) [facility] Start: 01-19-2024 COVID-19 Vaccine ( season) COVID-19 Vaccine ( season) [facility] Start: 01-19-2024 Influenza vaccination [facility] Start: 01-13-2024 End: 01-13-2024 Patient encounter procedure 01/13/2024 12:45 PM EDT Office Visit [facility] [address] [place] [phone] Maria Luisa Wagner DPM [address] [place], [place] [phone] Arrived [facility] Comment on above: Arrived Start: 01-07-2024 End: 01-06-2025 ASPIRATION BLADDER INSERT SUPRAPUBIC CATHETER ASPIRATION BLADDER INSERT SUPRAPUBIC CATHETER Procedures Routine Suprapubic catheter ([facility]) Expected: 01/07/2024, Expires: 01/06/2025 [facility] Work Phone: Comment on above: Expected: 01/07/2024 , Expires: 01/06/2025 Start: 01-07-2024 End: 01-07-2024 ambulatory 01/07/2024 12:15 PM EDT Support Visit [facility] [address] [place] [address] [place] [phone] Gisela Palacios MD [address] [place] [phone] [facility] Start: 12-31-2023 End: 12-31-2023 ambulatory 12/31/2023 10:15 AM EDT Support Visit [facility] [address] [place] [phone] Gisela Palacios MD [address] [place] [phone] [facility] Start: 12-11-2023 End: 12-10-2024 ASPIRATION BLADDER INSERT SUPRAPUBIC CATHETER ASPIRATION BLADDER INSERT SUPRAPUBIC CATHETER Procedures Routine Suprapubic catheter ([facility]) Expected: 12/11/2023, Expires: 12/10/2024 [facility] Work Phone: Comment on above: Expected: 12/11/2023 , Expires: 12/10/2024 Start: 12-10-2023 End: 12-10-2023 ambulatory 12/10/2023 11:00 AM EDT Support Visit [facility] [address] [place] [phone] Gisela Palacios MD [address] [place] [phone] [facility] Start: 11-12-2023 End: 11-11-2024 ASPIRATION BLADDER INSERT SUPRAPUBIC CATHETER ASPIRATION BLADDER INSERT SUPRAPUBIC CATHETER Procedures Routine Suprapubic catheter ([facility] Expected: 11/12/2023, Expires: 11/11/2024 [facility] Work Phone: Comment on above: Expected: 11/12/2023 , Expires: 11/11/2024 Start: 11-12-2023 End: 11-12-2023 ambulatory 11/12/2023 10:00 AM EDT Support Visit [facility] [address] [place] [address] [place] [phone] Gisela Palacios MD [address] [place] [phone] [facility] Start: 11-06-2023 End: 11-06-2023 Clinical Support 11/06/2023 8:00 AM EDT [facility] [address] [place] [phone] [facility] Start: 10-19-2023 Adult BMI Follow Up Plan Adult BMI Follow Up Plan [facility] Start: 10-19-2023 Depression Screening Depression [facility] Start: 10-15-2023 End: 10-14-2024 ASPIRATION BLADDER INSERT SUPRAPUBIC CATHETER ASPIRATION BLADDER INSERT SUPRAPUBIC CATHETER Procedures Routine Suprapubic catheter ([facility] Expected: 10/15/2023, Expires: 10/14/2024 [facility] Work Phone: Comment on above: Expected: 10/15/2023 , Expires: 10/14/2024 Start: 10-08-2023 End: 10-08-2023 ambulatory 10/08/2023 10:00 AM EDT Support Visit [facility] [address] [place] [address] [place] [phone] Gisela Palacios MD [address] [place] [phone] [facility] Start: 09-10-2023 End: 09-09-2024 ASPIRATION BLADDER INSERT SUPRAPUBIC CATHETER ASPIRATION BLADDER INSERT SUPRAPUBIC CATHETER Procedures Routine Suprapubic catheter ([facility]) Expected: 09/10/2023, Expires: 09/09/2024 [facility] Work Phone: Comment on above: Expected: 09/10/2023 , Expires: 09/09/2024 Start: 09-10-2023 End: 09-10-2023 ambulatory 09/10/2023 9:30 AM EDT Support Visit [facility] [address] [place] [address] [place] [phone] Gisela Palacios MD [address] [place] [phone] [facility] Start: 08-13-2023 End: 08-12-2024 ASPIRATION BLADDER INSERT SUPRAPUBIC CATHETER ASPIRATION BLADDER INSERT SUPRAPUBIC CATHETER Procedures Routine Spastic neurogenic bladder Expected: 08/13/2023, Expires: 08/12/2024 [facility] Work Phone: Comment on above: Expected: 08/13/2023 , Expires: 08/12/2024 Start: 08-13-2023 End: 08-13-2023 ambulatory 08/13/2023 9:30 AM EDT Support Visit [facility] [address] [place] [address] [address] [place] [phone] Gisela Palacios MD [address] [place] [phone] [facility] Start: 07-09-2023 End: 07-08-2024 ASPIRATION BLADDER INSERT SUPRAPUBIC CATHETER ASPIRATION BLADDER INSERT SUPRAPUBIC CATHETER Procedures Routine Suprapubic catheter ([facility]) Expected: 07/09/2023, Expires: 07/08/2024 [facility] Work Phone: Comment on above: Expected: 07/09/2023 , Expires: 07/08/2024 Start: 07-09-2023 End: 07-09-2023 ambulatory 07/09/2023 9:30 AM EST Support Visit [facility] [address] [place] [phone] Gisela Palacios MD [address] [place] [address] [phone] [facility] Start: 07-02-2023 End: 07-02-2023 ambulatory 07/02/2023 9:30 AM EST Support Visit [facility] [address] [place] [phone] Gisela Palacios MD [address] [place] [phone] [facility] Start: 02-17-2023 Influenza vaccination Influenza Vacc ine (#1) [facility] Start: 01-18-2023 COVID-19 Vaccine ( season) COVID-19 Vaccine ( season) [facility] Start: 01-18-2023 Influenza vaccination Influenza Vacc ine (#1) [facility] Start: 11-25-2022 [facility]id [facility] Start: 2022 RSV vaccine (optiona l 60+ years) RSV vaccine (optional 60+ years) [facility] Start: 09-29-2021 End: 09-29-2021 Admission to same day surgery center 09/29/2021 Surgery Ambulatory Surgery Jozef Clayton, DDS [address] [place] [address] DENTAL RESTORATIONS [facility] Comment on above: [facility] Start: 09-29-2021 End: 09-29-2021 DENTAL RESTORATIONS [facility] Start: 09-29-2021 Subsequent hospital visit by physician 09/29/2021 Hospital Encounter Ambulatory Surgery Jozef Clayton, DDS [address] [place] [address] [facility] Start: 09-11-2021 COVID-19 Vaccine (4 - Booster for Moderna series) COVID-19 Vaccine (4 - Booster for Moderna series) [facility] Start: 11-24-2020 COVID-19 Vaccine (3 - Booster for Moderna series) COVID-19 Vaccine (3 - Booster for Moderna series) [facility] Start: 06-20-2018 Annual Wellness Visi t (G0439) Annual Wellness Visit (G0439) [facility] Start: 2012 Measurement of occul t blood in single stool specimen FIT [facility] Start: 2007 Screening for malign ant neoplasm [facility] Start: 11-17-1998 Annual wellness visit Annual W ellness Visit (G0438) [facility] Start: 1980 Hepatitis C screening Hepatitis C An tibody [facility] Start: 1980 Tetanus + diphtheria + acellular pertussis vaccine (product) Tdap Booster [facility] Start: 1977 HIV screening HIV Test [place] Start: 1962 Screening for malign ant neoplasm of colon [facility] End: 04-08-2025 Basic metabolic 2000 panel - Serum or Plasma Basic Metabolic Panel Lab Routine Benign essential HTN 1 Occurrences starting 04/08/2024 until 04/08/2025 [employer] Comment on above: 1 Occurrences starti ng 04/08/2024 until 04/08/2025 End: 11-05-2024 CBC W Auto Differential panel - Blood CBC auto differential Lab Routine Primary hypertension 1 Occurrences starting 11/06/2023 until 11/05/2024 [employer] Comment on above: 1 Occurrences starti ng 11/06/2023 until 11/05/2024 End: 04-08-2025 CBC W Auto Differential panel - Blood CBC auto differential Lab Routine Benign essential HTN 1 Occurrences starting 04/08/2024 until 04/08/2025 [facility] Work Phone: Comment on above: 1 Occurrences starti ng 04/08/2024 until 04/08/2025 End: 11-05-2024 Comprehensive metabolic 2000 panel - Serum or Plasma Comprehensive metabolic panel Lab Routine Primary hypertension 1 Occurrences starting 11/06/2023 until 11/05/2024 [facility] Comment on above: 1 Occurrences starti ng 11/06/2023 until 11/05/2024 End: 11-06-2024 Hemoglobin A1c/Hemoglobin.total in Blood Hemoglobin A1c Lab Routine Screening for diabetes mellitus 1 Occurrences starting 11/06/2023 until 11/06/2024 [facility] Comment on above: 1 Occurrences starti ng 11/06/2023 until 11/06/2024 End: 04-08-2025 Hepatitis C(HCV) Ab w/ Reflex to PCR Hepatitis C(HCV) Ab w/ Reflex to PCR Lab Routine Need for hepatitis C screening test 1 Occurrences starting 04/08/2024 until 04[facility]08[facility]: 1 Occurrences starti ng 04/08/2024 until 04/08/2025 End: 11-05-2024 Iron and TIBC Iron and TIBC Lab Routine Low ferritin 1 Occurrences starting 11/06/2023 until 11/05/2024 [facility] [employer] Comment on above: 1 Occurrences starti ng 11/06/2023 until 11/05/2024 End: 11-05-2024 Lipid panel Lipid panel Lab Routine Mixed hyperlipidemia 1 Occurrences starting 11/06/2023 until 11/05/2024 [facility] Work Phone: Comment on above: 1 Occurrences starti ng 11/06/2023 until 11/05/2024 Immunizations Immunization Date Immunization Notes Care Provider [facility] 04-03-2024 influenza, seasonal, injectable, preservative free Chapin Cast 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: [facility] 04-03-2024 Immunization, In Clinic,; 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: [Drug or medicament (substance)] 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 Cast 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: [facility] 03-22-2023 influenza, injectabl e, quadrivalent, preservative free Maria Luisa Wagner DP Work Phone: [facility] 03-22-2023 influenza virus vacc ine, unspecified formulation Gisela Palacios MD Work Phone: [facility] 08-13-2022 tetanus toxoid, redu minesh diphtheria toxoid, and acellular pertussis vaccine, adsorbed Dora Lica DDS Work Phone: [facility] 03-26-2022 influenza, injectabl e, quadrivalent, preservative free Dora Lica DDS Work Phone: [facility] 03-26-2022 influenza virus vacc ine, unspecified formulation Dora Lica DDS Work Phone: [facility] 07-17-2021 Moderna Monovalent ( 12+ yrs) COVID-19 vaccine, mRNA, spike protein, LNP, PF, 100 mcg/0.5 mL (GUU=666) Dora Lica DDS Work Phone: [facility] 03-20-2021 influenza, injectabl e, quadrivalent, preservative free [facility] 06-27-2020 COVID-19, mRNA, LNP- S, PF, 30mcg/0.3mL Dose Maria Luisa TRINH Work Phone: [facility] 06-27-2020 Moderna SARS-COV-2 (COVID-19) vaccine, mRNA, spike protein, LNP, preservative free, 100 mcg/0.5 mL (primary) or 50 mcg/0.25 mL (booster) (PFN=020) [facility] 05-30-2020 COVID-19, mRNA, LNP- S, PF, 30mcg/0.3mL Dose Maria Luisa Wagner DPViktoria Work Phone: [facility] 05-30-2020 [facility] SARS-COV-2 (COVID-19) vaccine, mRNA, spike protein, LNP, preservative free, 100 mcg/0.5 mL (primary) or 50 mcg/0.25 mL (booster) (LMX=504) [facility] 03-10-2020 influenza, injectabl e, quadrivalent, preservative free [facility] 04-21-2019 zoster vaccine recombinant [facility] 04-21-2019 zoster vaccine, live Maria Luisa Wagner DPM Work Phone: [facility] 03-03-2019 influenza, injectabl e, quadrivalent, preservative free [facility] 01-27-2019 zoster vaccine recombinant [facility] 01-27-2019 zoster vaccine, live Maria Luisajourdan Wagner DPM Work Phone: [facility] 03-06-2018 influenza, injectabl e, quadrivalent, preservative free [facility] 03-06-2017 influenza, injectabl e, quadrivalent, preservative free [facility] 03-01-2017 influenza virus vacc ine, unspecified formulation Maria Luisa Bernard DPM Work Phone: [facility] 03-01-2017 influenza, injectabl e, quadrivalent, preservative free [facility] 03-05-2016 influenza, injectabl e, quadrivalent, preservative free [facility] 04-17-2013 pneumococcal polysaccharide vaccine, 23 valent [facility] 06-20-2011 diphtheria, tetanus toxoids and acellular pertussis vaccine [facility] 04-27-2009 novel influenza-H1N1 -09, injectable [facility] 04-05-2006 pneumococcal polysaccharide vaccine, 23 valent [facility] 07-13-1994 tetanus toxoid, redu minesh diphtheria toxoid, and acellular pertussis vaccine, adsorbed Maria Luisa Rus DPM Work Phone: [facility] 03-09-1985 tetanus and diphther ia toxoids, adsorbed, preservative free, for adult use (2 Lf of tetanus toxoid and 2 Lf of diphtheria toxoid) [facility] 03-10-1984 tetanus and diphther ia toxoids, adsorbed, preservative free, for adult use (2 Lf of tetanus toxoid and 2 Lf of diphtheria toxoid) [facility] 10-29-1983 measles, mumps and rubella virus vaccine [facility] 10-29-1983 tetanus and diphther ia toxoids, adsorbed, preservative free, for adult use (2 Lf of tetanus toxoid and 2 Lf of diphtheria toxoid) [facility] Payers Date Payer Category Payer Medicaid [id number] 1997 Medicare [id number] 1962 Unknown [id number] 2.16.84 0.1.438130.3.579.2.593 1962 Unknown [id number] 2.16.84 0.1.180791.3.579.2.593 1962 Unknown [id number] 2.16.84 0.1.535701.3.579.2.593 1962 Unknown [id number] 2.16.84 0.1.440224.3.579.2.593 1962 Unknown [id number] 2.16.84 0.1.329463.3.579.2.593 1962 Unknown [id number] 2.16. 840.1.900636.3.579.2.732 1962 Unknown [id number] 2.16.8 40.1.096257.3.579.2.1286 1962 Unknown [id number] 2.16.8 40.1.147401.3.579.2.1286 1962 Unknown [id number] 2.16.8 40.1.433480.3.579.2.1286 1962 Unknown [id number] 2.16.8 40.1.088266.3.579.2.1286 1962 Unknown [id number] 2.16.8 40.1.364632.3.579.2.1286 1962 Unknown [id number] 2.16.8 40.1.263185.3.579.2.1286 1962 Unknown [id number] 2.16. 840.1.198152.3.579.2.1286 1962 Unknown [id number] 2.16. 840.1.780025.3.579.2.1286 1962 Unknown [id number] 2.16.8 40.1.128401.3.579.2.1285 1962 Unknown [id number] 2.16.8 40.1.374594.3.579.2.1285 1962 Unknown [id number] 2.16.8 40.1.893391.3.579.2.1285 1962 Unknown [id number] 2.16.8 40.1.312545.3.579.2.1285 1962 Unknown [id number] 2.16.8 40.1.766338.3.579.2.1285 1962 Unknown [id number] 2.16.8 40.1.200287.3.579.2.1285 1962 Unknown [id number] 2.16.8 40.1.560146.3.579.2.1285 1962 Unknown [id number] 2.16.8 40.1.493630.3.579.2.1285 1962 Unknown [id number] 2.16.8 40.1.396304.3.579.2.1285 1962 Unknown [id number] 2.16.8 40.1.063666.3.579.2.1285 1962 Unknown [id number] 2.16.8 40.1.340366.3.579.2.1285 1962 Unknown [id number] 2.16.8 40.1.674510.3.579.2.1285 1962 Unknown [id number] 2.16.8 40.1.678851.3.579.2.1285 1962 Unknown [id number] 2.16.8 40.1.806564.3.579.2.1285 1962 Unknown [id number] 2.16.8 40.1.919738.3.579.2.1285 1962 Unknown [id number] 2.16.8 40.1.872012.3.579.2.1286 1962 Unknown [id number] 2.16.84 0.1.274704.3.579.2.1259 1962 Unknown [id number] 2.16.84 0.1.114038.3.579.2.1259 1962 Unknown [id number] 2.16.84 0.1.844024.3.579.2.1259 1962 Unknown [id number] 2.16.84 0.1.245030.3.579.2.1259 1962 Unknown [id number] 2.16.84 0.1.918585.3.579.2.9 1962 Unknown [id number] 2.16.84 0.1.293184.3.579.2.9 1962 Unknown [id number] 2.16.84 0.1.050090.3.579.2.1259 1962 Unknown [id number] 2.16.84 0.1.765966.3.579.2.1259 1962 Unknown [id number] 2.16.84 0.1.429037.3.579.2.1259 1962 Unknown [id number] 2.16.84 0.1.287707.3.579.2.1259 1962 Unknown [id number] 2.16.84 0.1.825085.3.579.2.1259 1962 Unknown [id number] 2.16.84 0.1.841250.3.579.2.1259 1962 Unknown [id number] 2.16.84 0.1.555417.3.579.2.1259 1962 Unknown [id number] 2.16.84 0.1.236284.3.579.2.1259 1962 Unknown [id number] 2.16.84 0.1.714208.3.579.2.1259 1962 Unknown [id number] 2.16.84 0.1.940376.3.579.2.1259 1962 Unknown [id number] 2.16.84 0.1.381375.3.579.2.1259 1962 Unknown [id number] 2.16.84 0.1.510234.3.579.2.1259 1962 Unknown [id number] 2.16.84 0.1.982334.3.579.2.1259 1962 Unknown [id number] 2.16.84 0.1.871355.3.579.2.1259 1962 Unknown [id number] 2.16.84 0.1.056497.3.579.2.1259 1962 Unknown [id number] 2.16.84 0.1.020851.3.579.2.1259 1959 Medicaid [id number] 1957 Medicare [id number] Self-pay Self Pay [id number] Social History Date Type Detail Facility Tobacco smoking stat [facility] Tobacco smoking consumption unknown [facility] Start: 1960 Sex Assigned At Male [facility] Start: 08-31-2021 Gender identity Identifies as male gender (finding) [facility] Start: 08-31-2021 Sexual orientation Choose not to disclose [facility] Start: 08-03-2019 End: 03-26-2022 Tobacco smoking status SDIS Never smoked tobacco (finding) [facility] Start: 03-26-2022 End: 10-30-2022 Tobacco use and exposure Smokeless tobacco non-user [facility] Start: 02-07-2024 End: 07-06-2024 Alcoholic beverage intake Lifetime non-drinker (finding) [facility] Start: 06-30-2020 End: 02-07-2024 History of Social function [facility] Start: 06-30-2020 End: 02-07-2024 Tobacco use panel [facility] Start: 1960 Sex assigned at Not on file [facility] Start: 03-12-2024 End: 07-08-2024 Alcoholic beverage intake Current non-drinker of alcohol (finding) [facility] Adolescent depressio n screening assessment 0 [facility] Start: 12-23-2014 Sex Male (finding) [facility] Clinical Notes 09-20-2021 to 07-06-2024 Maria Luisa Wagner, ELE - 07/06/2024 1:45 PM ESTPatient InstructionsChapin Cast, COMPENSATION VICE PRESIDENT-CELLO TEACHER - 07/03/2024 11:59 PM ESTHope Gonzalez, TRIMMING MACHINE OPERATOR - 06/29/2024 11:00 AM ESTPatient Instructions Note Date & Type Note Facility 07-06-2024 History of Present illness Narrative Images from the original note were not included. Subjective Patient ID: Igor Pereira is a 64 y.o. male who presents for Foot Ulcer (Established pt presents today with his nurse Kathy for 1 month wound check, right foot. ). HPI Follow-up assessment and wound care: Chronic, recalcitrant neuropathic wound; located dorsal lateral surface of the right midfoot. Accompanied by his caregiver, Kathy. Status post SDRM 15th application (06/15/2024). There remains minimal serous drainage on a daily basis. There has been no streaking. Compliance with braces in place generally much improved. Medications Current Outpatient Medications: acetaminophen (Tylenol) 325 MG tablet, Take by mouth., Disp: , Rfl: amLODIPine (Norvasc) 2.5 MG tablet, Take 2.5 mg by mouth in the morning., Disp: , Rfl: ammonium lactate (Lac-Hydrin) 12 % lotion, Apply topically if needed for dry skin., Disp: , Rfl: bacitracin 500 UNIT/GM ointment, Apply topically 2 (two) times a day., Disp: , Rfl: carbamide peroxide (Debrox) 6.5 % otic solution, 5 drops in the morning and 5 drops before bedtime., Disp: , Rfl: citalopram (CeleXA) 20 MG tablet, Take by mouth., Disp: , Rfl: citalopram (CeleXA) 40 MG tablet, Take 20 mg by mouth., Disp: , Rfl: dextromethorphan 7.5 MG/5ML syrup, Take 7.5 mg by mouth every 6 (six) hours if needed for cough., Disp: , Rfl: dilTIAZem CD (Cardizem CD) 240 MG 24 hr capsule, Take 240 mg by mouth in the morning., Disp: , Rfl: divalproex (Depakote ER) 250 MG 24 hr tablet, Take 250 mg by mouth Daily Do not crush, chew, or split., Disp: , Rfl: ferrous sulfate 325 (65 Fe) MG tablet, Take 325 mg by mouth in the morning. Take with meals., Disp: , Rfl: guaiFENesin (Robitussin) 100 MG/5ML liquid, Take 200 mg by mouth 3 (three) times a day as needed for cough., Disp: , Rfl: hydrocortisone (Proctozone-HC) 2.5 % rectal cream, Insert into the rectum 2 (two) times a day, Disp: , Rfl: Lactobacillus (ACIDOPHILUS PO), Take by mouth., Disp: , Rfl: lactulose (Chronulac) 10 GM/15ML solution, Take 20 g by mouth in the morning and 20 g in the evening and 20 g before bedtime., Disp: , Rfl: LACTULOSE ENCEPHALOPATHY PO, Take by mouth., Disp: , Rfl: lisinopril 30 MG tablet, Take by mouth Daily, Disp: , Rfl: LORazepam (Ativan) 2 MG tablet, Take 2 mg by mouth., Disp: , Rfl: meloxicam (Mobic) 7.5 MG tablet, Take by mouth., Disp: , Rfl: Menthol-Zinc Oxide (Calmoseptine) 0.44-20.6 % ointment, Apply topically, Disp: , Rfl: miconazole (Micotin) 2 % powder, Apply topically if needed for itching., Disp: , Rfl: Mirabegron (MYRBETRIQ PO), Take by mouth., Disp: , Rfl: Multiple Vitamin (multivitamin) tablet, Take 1 tablet by mouth in the morning., Disp: , Rfl: Multiple Vitamins-Minerals (TAB-A-XIOMARA MAXIMUM PO), Take by mouth., Disp: , Rfl: omega-3 acid ethyl esters (Lovaza) 1 g capsule, Take 1 g by mouth in the morning and 1 g before bedtime., Disp: , Rfl: oxybutynin XL (Ditropan-XL) 15 MG 24 hr tablet, Take 15 mg by mouth in the morning. Do not crush, chew, or split. ., Disp: , Rfl: polyethylene glycol, PEG, 3350 (Glycolax) 17 GM/SCOOP powder, Take by mouth., Disp: , Rfl: psyllium (Metamucil) 28 % packet, Take 1 packet by mouth in the morning and 1 packet before bedtime. Mix and drink with at least 8 ounces of water or juice.., Disp: , Rfl: raNITIdine (Zantac) 150 MG tablet, Take 150 mg by mouth in the morning and 150 mg before bedtime., Disp: , Rfl: risperiDONE (RisperDAL) 2 MG tablet, Take 1.5 mg by mouth in the morning and 1.5 mg before bedtime., Disp: , Rfl: senna-docusate (Fatimah-Colace) 8.6-50 MG tablet, Take 1 tablet by mouth in the morning., Disp: , Rfl: simvastatin (Zocor) 10 MG tablet, Take 10 mg by mouth at bedtime., Disp: , Rfl: Skin Protectants, Misc. (DERMACERIN EX), Apply topically, Disp: , Rfl: sodium phosphate (Fleet) 3.5-9.5 GM/59ML enema, Insert into the rectum, Disp: , Rfl: Water For Irrigation, Sterile ([place] Sterile Water) solution, Irrigate with as directed, Disp: , Rfl: zinc gluconate 50 MG tablet, Take 50 mg by mouth Daily, Disp: , Rfl: Allergies Patient has no known allergies. Past Surgical History Past Surgical History: Procedure Laterality Date BACK SURGERY Family History Family History Problem Relation Name Age of Onset Mental illness Maternal Grandfather Objective General Examination: GENERAL EXAMINATION: Presents ambulatory with double-arm crutch. Bilateral AFOs in place, wearing new balance shoes. Accompanied by caregiver, Kathy. Vascular: DORSALIS PEDIS PULSE: 1/4 bilateral. POSTERIOR TIBIAL PULSE: 1/4 bilateral. CAPILLARY REFILL: <3 seconds. TEMPERATURE GRADIENT: warm to slightly cool. EDEMA: unremarkable for ankle edema. Neurologic: DEEP TENDON REFLEXES: Patellar, Achilles, 0/5. MUSCLE POWER: diffuse flacid paralysis bilateral LE. SHARP SENSATION: absent. SEMMES-RAUL 5.07 MONOFILAMENT: Unable to localize all points plantarly. Dermatologic: SKIN FINDINGS: intact, skin turgor is otherwise good. NAIL PATHOLOGY: dystrophic , discolored. INTERDIGITAL MACERATION: Clean and dry. ULCER: Right foot: dorsolateral midfoot: [place] stage II neuropathic wound; location dorsal-lateral midfoot. Wound bed remains well hydrated, clean and predominantly granular; minimal serous drainage, without undermining, tunneling or probing. Marginal epithelial response is again appreciated. The wound margins are well adhered, slightly raised, fibrotic and keratotic; mildly macerated. There are no clinical signs of infection. Unremarkable for malodor or ischemic changes. Soft tissue envelope well perfused. Chronic, stable fluctuant swelling of the right midfoot. Post-debridement measurements: 07/06/2024: 1.2 x 0.8 x 0.1 cm Post-debridement measurements: 06/15/2024: 1.5 x 1.0 x 0.1 cm Post-debridement measurements: 05/27/2024: 1.3 x 0.9 x 0.1 cm Post-debridement measurements: 05/07/2024: 1.5 x 1.0 x 0.1 cm Post-debridement measurements: 04/20/2024: 1.5 x 0.8 x 0.1 cm Post-debridement measurements: 03/31/2024: 1.7 x 0.9 x 0.1 cm Post-debridement measurements: 02/28/2024: 1.7 x 1.4 x 0.1 cm Post-debridement measurements: 02/07/2024: 1.8 x 1.7 x 0.1 cm Post-debridement measurements: 01/28/2024: 1.8 x 1.8 x 0.1 cm Post-debridement measurements: 01/13/2024: 1.9 x 1.8 x 0.2 cm Post-debridement measurements: 01/03/2024: 2.0 x 1.8 x 0.1 cm Post-debridement measurements: 12/27/2023: 2.1 x 1.5 x 0.1 cm Post-debridement measurements: 12/20/2023: 1.9 x 1.5 x 0.1 cm Post-debridement measurements: 12/13/2023: 2.1 x 1.6 x 0.1 cm Post-debridement measurements: 12/05/2023: 2.0 x 1.5 x 0.2 cm Post-debridement measurements: 11/26/2023: 2.5 x 1.6 x 0.2 cm Post-debridement measurements: 11/05/2023: 2.2 x 1.6 x 0.2 cm Post-debridement measurements: 10/15/2023: 2.5 x 1.5 x 0.2 cm Post-debridement measurements: 09/24/2023: 2.5 x 1.7 x 0.2 cm Post-debridement measurements: 09/03/2023: 2.5 x 1.8 x 0.2 cm Post-debridement measurements: 08/09/2023: 2.0 x 1.6 x 0.2 cm Post-debridement measurements: 07/19/2023: 2.0 x 1.7 x 0.2 cm Post-debridement measurements: 06/27/2023: 2.1 x 2.0 x 0.2 cm Post-debridement measurements: 06/05/2023: 2.2 x 1.5 x 0.2 cm Post-debridement measurements: 05/15/2023: 2.0 x 1.5 x 0.2 cm Post-debridement measurements: 04/24/2023: 2.0 x 1.5 x 0.2 cm Post-debridement measurements: 03/29/2023: 2.0 x 1.4 x 0.2 cm Post-debridement measurements: 02/27/2023: 2.0 x 1.1 x 0.2 cm Post-debridement measurements: 01/30/2023: 1.7 x 1.0 x 0.2 cm Post-debridement measurements: 01/03/2023: 1.8 x 1.7 x 0.2 cm Post-debridement measurements: 12/19/2022: 1.8 x 1.0 x 0.2 cm Post-debridement measurements: 11/22/2022: 2.0 x 1.0 x 0.2 cm Post-debridement measurements: 10/30/2022: 1.6 x 1.0 x 0.2 cm Post-debridement measurements: 10/03/2022: 1.6 x 1.0 x 0.2 cm Post-debridement measurements: 09/12/2022: 1.7 x 1.1 x 0.2 cm Post-debridement measurements: 08/27/2022: 1.7 x 1.1 x 0.2 cm Orthopedic: DEFORMITIES: severe gastrocsoleus equinus bilateral. multiple digital deformities. Flaccid PVP foot structure. 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 Radiology: Assessment/Plan 1. [place] stage II neuropathic wound right midfoot; chronic, stable wound. 2. 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 LE neuropathy/LOPS 4. Acquired bilateral foot and LE deformities 5. Acquired hyperkeratotic lesions navicular tuberosity bilateral. 6. Status post Epifix x 10; (#10 applied 03/14/2022) Impression: Wound appears to be responding favorably, measures slightly smaller. Remains clean and stable; without infection or ischemic necrosis. Plan: Clinical Notes: review of clinical findings, high risk nature of the condition and treatment rationale. 1. Sharp debridement and wound preparation followed by Supra SDRM biodegradable matrix application #16 (donated product/assistance program). 2. Dressing intact, clean and dry x 7 days; with instructions to resume or default to Mefix dressings daily as indicated. 3. Offloading measures: Right AFO. Wheelchair as necessary. Procedure: Right foot: Aseptic technique: #15 scalpel: Sharp, active, selective full-thickness excisional debridement; to the level of subcutaneous granular wound bed; excising devitalized, non-viable, dystrophic, fibrous and hyperkeratotic tissue; reducing direct and indirect pressure; reducing wound contamination and bioburden. Sharp curettage of wound bed stimulating granular bleeding. Saline cleansing. Pressure hemostasis. Supra SDRM biodegradable matrix wound dressing applied in stacked technique; Rylon non-adherent dressing; secured with Steri-Strips in a window frame technique; followed by a dry sterile dressing; secured with Mefix under mild Coban compression. This note was created with the assistance of a speech recognition program. While intending to generate a timely document that accurately reflects the content of the visit, no guarantee can be provided that every grammatical or spelling mistake has been or will be identified or corrected. Thank you for your understanding. Maria Luisa Wagner DPM documented in this encounter [facility] 07-06-2024 Instructions Maria Luisa Wagner DPM - 07/06/2024 1:45 PM EST Wound care measures as noted documented in this encounter [facility] 07-03-2024 History of Present illness Narrative Patient Name: Igor Pereira Date of : 1960 Date of Service: 07/03/2024 Facility: [facility] Igor Pereira is a 64 y.o. male seen today at [facility] for Chief Complaint Patient presents with 3 month follow up visit . Resides at [facility] Accompanied by RN today. Total care provided by staff, including medication administration. Attends daily workshop Severe cognitive and intellectual delay. Able to verbalize needs in short phrases and facial expressions. RN reports Igor has been doing well. There is no concerns today. Past Medical History: Diagnosis Date Anemia Anxiety Bilateral impacted cerumen 10/23/2016 Calculus, bladder Cerumen debris on tympanic membrane of both ears 01/29/2017 Colon polyps Hydrocephalus ([facility]) Hydronephrosis Hypertension Neurogenic bladder Restlessness and agitation 01/10/2017 Spina bifida of lumbar spine ([facility]) Stricture, ureter Suprapubic catheter ([facility] Urinary tract infection Past Surgical History: Procedure Laterality Date BLADDER SURGERY suprapubic catheter placement COLONOSCOPY N/A 02/15/2022 Performed by Annette Box DO at [facility] COLONOSCOPY N/A 12/17/2016 Performed by Annette Box DO at [facility] SPINE [facility] Family History Problem Relation [...] MG IN 24 HOURS) 60 tablet 11 acidophilus-pectin, citrus 100 million cell-10 mg capsule TAKE 1 CAPSULE BY MOUTH THREE TIMES DAILY (8AM,3PM,8PM) 93 capsule 11 amLODIPine (NORVASC) 2.5 mg tablet take 1 tablet by mouth once every day 31 tablet 11 ammonium lactate (AMLACTIN) 12 % cream Apply 1 Application topically as needed for dry skin. CALMOSEPTINE 0.44-20.6 % ointment APPLY TOPICALLY TO BUTTOCK TWICE DAILY;APPLY TOPICALLY TO BUTTOCK NEEDED 113 g 11 CHEST CONGESTION RELIEF 100 mg/5 mL syrup TAKE 10 ML BY MOUTH EVERY 6 HOURS NEEDED FOR COUGH 473 mL 11 citalopram (CeleXA) 40 mg tablet Take 1 tablet (40 mg total) by mouth in the morning. 31 tablet 11 DERMACERIN cream APPLY TOPICALLY TO SITES ON BILATERAL FEET ONCE EVERY DAY (6AM) 106 g 11 dilTIAZem CD (CARDIZEM CD) 240 mg 24 hr capsule TAKE 1 CAPSULE BY MOUTH ONCE EVERY DAY 31 capsule 11 divalproex (DEPAKOTE ER) 250 mg 24 hr tablet Take 3 tablets (750 mg total) by mouth nightly. 93 tablet 11 ENEMA DISPOSABLE 19-7 gram/118 mL enema INSERT 1 SUPPOSITORY RECTALLY NEEDED IF NO BOWEL MOVEMENT AFTER 3 DAYS (DATE, TIME, INITIAL, EFFECT) 266 mL 11 FeroSuL 325 mg (65 mg iron) tablet TAKE 1 TABLET BY MOUTH ONCE EVERY DAY WITH BREAKFAST 31 tablet 11 lactulose (CHRONULAC) 10 gram/15 mL solution TAKE 15 ML (10GM) BY MOUTH TWICE DAILY 946 mL 10 lisinopriL (PRINIVIL,ZESTRIL) 30 mg tablet take 1 tablet by mouth once every day 31 tablet 11 LORazepam (ATIVAN) 2 mg tablet TAKE 1 TABLET BY MOUTH 1 HR PRIOR TO PHYSICIAN APPTS, PROCEDURES, LAB DRAWS OR DIAGNOSTIC TESTING NEEDED 10 tablet 1 meloxicam (MOBIC) 7.5 mg tablet take 1 tablet by mouth every morning 31 tablet 11 multivitamin with iron (TAB-A-XIOMARA/IRON ORAL) See Admin Instructions. MYRBETRIQ 50 mg tablet extended release 24 hr take 1 tablet by mouth once every day 31 tablet 11 oxybutynin XL (DITROPAN XL) [...] DAY WITH MORNING MEDS 60 Wafer 11 psyllium husk, with sugar, (METAMUCIL FIBER THIN) 2.5 gram wafer TAKE 2 WAFERS BY MOUTH ONCE EVERY DAY WITH MORNING MEDS 60 each 11 risperiDONE (RisperDAL) 2 mg tablet Take 1 tablet (2 mg total) by mouth in the morning and 1 tablet (2 mg total) before bedtime. 60 tablet 12 SENNA PLUS 8.6-50 mg TAKE 2 TABLETS (17.2-100MG) BY MOUTH EVERY NIGHT AT BEDTIME 62 tablet 11 simvastatin (ZOCOR) 10 mg tablet take 1 tablet by mouth every night at bedtime 31 tablet 11 sodium chloride, bottle, (NS) 0.9 % irrigation CLEANSE RIGHT FOOT & APPLY MESALT DRESSING ONCE EVERY DAY AFTER SHOWERS (6AM) 500 mL 11 sterile water irrigation USE 30 CC'S TO IRRIGATE KLEIN CATHETER ONCE WEEKLY;USE 30 CC'S TO IRRIGATE KLEIN CATHETER NEEDED (IF NOT USING SOD CHLORIDE) 500 mL 11 TAB-A-XIOMARA MULTIVITAMIN W-IRON 18-400 mg-mcg tablet take 1 tablet by mouth once every day 31 tablet 11 TRIPLE ANTIBIOTIC 3.5mg-400 unit- 5,000 unit/gram ointment APPLY TOPICALLY TO SCRATCHES DAILY NEEDED (DATE, TIME, INITIAL, EFFECT) 28 g 11 zinc gluconate 50 mg tablet Take 1 tab by mouth once every day 31 tablet 11 No current facility-administered medications for this visit. Allergies: Patient has no known allergies. Code Status: FULL CODE The following portions of the patient's history were reviewed and updated as appropriate: allergies, current medications, past family history, past medical history, past social history, past surgical history, problem list, and medication reconciliation was completed including current medication and post discharge medication. Review of Systems Reason unable to perform ROS: Facility RN completes ROS due to severe intellectual and cognative delay. Constitutional: Negative for chills, fatigue and [...] hematuria, scrotal swelling and testicular pain. Musculoskeletal: Negative. Skin: Negative. Allergic/Immunologic: Negative. Neurological: Negative for seizures, syncope and headaches. Hematological: Does not bruise/bleed easily. Psychiatric/Behavioral: Negative. Objective BP 142/80 Pulse 83 Temp 37.1 C (98.7 F) (Temporal) Resp 17 Wt 72.1 kg (158 lb 14.4 oz) SpO2 98% BMI 29.06 kg/m Physical Exam Vitals and nursing note [...] symmetric. Psychiatric: Mood and Affect: Mood normal. Assessment/Plan Summary / Assessment / Plan 1. Primary hypertension 2. Chronic constipation 3. Intellectual disability 4. Impulse control disorder 5. Mixed hyperlipidemia 1. HTN Continue lisinopril Continue amlodipine 2.5 mg oral daily. 2. Mixed hyperlipidemia Continue simvastatin 10 mg oral daily 3. Impulse control disorder OCD, impulse control Managed by Dr. Cali, psychiatry 4. Chronic constipation Caregiver reports no concerns. Continue lactulose, Miralax, Senokot, increased fiber diet. There are no Patient Instructions on file for this visit. ELECTRONICALLY SIGNED BY: EVY Miner APRN-CNP 07/08/24 1239 documented in this encounter [facility] 06-29-2024 History of Present illness Narrative Patient presents for regular Suprapubic catheter change via Caregiver from [facility] with # 24 fr Sp catheter attached to leg bag. Patient prepped and draped and Sp Site cleansed with betadine swabs 2% lidocaine urojet instilled for comfort. # 24 fr Sp klein safely removed and replaced with # 24 fr Sp klein catheter 8 cc's to placement balloon. Sp klein catheter then attached to leg bag. night bag given. Hope Gonzalez LPN Ordering Doctor:MD Dania Supervising doctor: Dr Obie MD documented in this encounter [facility] 06-15-2024 History of Present illness Narrative Images from the original note were not included. Subjective Patient ID: Igor Pereira is a 64 y.o. male who presents for Wound Care (Igor Pereira is a 64 y.o. male who presents for Wound Care.). HPI Follow-up assessment and wound care: Chronic, recalcitrant neuropathic wound; located dorsal lateral surface of the right midfoot. Accompanied by his caregiver, Herminio. Status post SDRM 14th application (05/27/2024). There remains minimal serous drainage on a daily basis. There has been no streaking. Medications Current Outpatient Medications: acetaminophen (Tylenol) 325 MG tablet, Take by mouth., Disp: , Rfl: amLODIPine (Norvasc) 2.5 MG tablet, Take 2.5 mg by mouth in the morning., Disp: , Rfl: ammonium lactate (Lac-Hydrin) 12 % lotion, Apply topically if needed for dry skin., Disp: , Rfl: bacitracin 500 UNIT/GM ointment, Apply topically 2 (two) times a day., Disp: , Rfl: carbamide peroxide (Debrox) 6.5 % otic solution, 5 drops in the morning and 5 drops before bedtime., Disp: , Rfl: citalopram (CeleXA) 20 MG tablet, Take by mouth., Disp: , Rfl: citalopram (CeleXA) 40 MG tablet, Take 20 mg by mouth., Disp: , Rfl: dextromethorphan 7.5 MG/5ML syrup, Take 7.5 mg by mouth every 6 (six) hours if needed for cough., Disp: , Rfl: dilTIAZem CD (Cardizem CD) 240 MG 24 hr capsule, Take 240 mg by mouth in the morning., Disp: , Rfl: divalproex (Depakote ER) 250 MG 24 hr tablet, Take 250 mg by mouth Daily Do not crush, chew, or split., Disp: , Rfl: ferrous sulfate 325 (65 Fe) MG tablet, Take 325 mg by mouth in the morning. Take with meals., Disp: , Rfl: guaiFENesin (Robitussin) 100 MG/5ML liquid, Take 200 mg by mouth 3 (three) times a day as needed for cough., Disp: , Rfl: hydrocortisone (Proctozone-HC) 2.5 % rectal cream, Insert into the rectum 2 (two) times a day, Disp: , Rfl: Lactobacillus (ACIDOPHILUS PO), Take by mouth., Disp: , Rfl: lactulose (Chronulac) 10 GM/15ML solution, Take 20 g by mouth in the morning and 20 g in the evening and 20 g before bedtime., Disp: , Rfl: LACTULOSE ENCEPHALOPATHY PO, Take by mouth., Disp: , Rfl: lisinopril 30 MG tablet, Take by mouth Daily, Disp: , Rfl: LORazepam (Ativan) 2 MG tablet, Take 2 mg by mouth., Disp: , Rfl: meloxicam (Mobic) 7.5 MG tablet, Take by mouth., Disp: , Rfl: Menthol-Zinc Oxide (Calmoseptine) 0.44-20.6 % ointment, Apply topically, Disp: , Rfl: miconazole (Micotin) 2 % powder, Apply topically if needed for itching., Disp: , Rfl: Mirabegron (MYRBETRIQ PO), Take by mouth., Disp: , Rfl: Multiple Vitamin (multivitamin) tablet, Take 1 tablet by mouth in the morning., Disp: , Rfl: Multiple Vitamins-Minerals (TAB-A-XIOMARA MAXIMUM PO), Take by mouth., Disp: , Rfl: omega-3 acid ethyl esters (Lovaza) 1 g capsule, Take 1 g by mouth in the morning and 1 g before bedtime., Disp: , Rfl: oxybutynin XL (Ditropan-XL) 15 MG 24 hr tablet, Take 15 mg by mouth in the morning. Do not crush, chew, or split. ., Disp: , Rfl: polyethylene glycol, PEG, 3350 (Glycolax) 17 GM/SCOOP powder, Take by mouth., Disp: , Rfl: psyllium (Metamucil) 28 % packet, Take 1 packet by mouth in the morning and 1 packet before bedtime. Mix and drink with at least 8 ounces of water or juice.., Disp: , Rfl: raNITIdine (Zantac) 150 MG tablet, Take 150 mg by mouth in the morning and 150 mg before bedtime., Disp: , Rfl: risperiDONE (RisperDAL) 2 MG tablet, Take 1.5 mg by mouth in the morning and 1.5 mg before bedtime., Disp: , Rfl: senna-docusate (Fatimah-Colace) 8.6-50 MG tablet, Take 1 tablet by mouth in the morning., Disp: , Rfl: simvastatin (Zocor) 10 MG tablet, Take 10 mg by mouth at bedtime., Disp: , Rfl: Skin Protectants, Misc. (DERMACERIN EX), Apply topically, Disp: , Rfl: sodium phosphate (Fleet) 3.5-9.5 GM/59ML enema, Insert into the rectum, Disp: , Rfl: Water For Irrigation, Sterile ([place] Sterile Water) solution, Irrigate with as directed, Disp: , Rfl: zinc gluconate 50 MG tablet, Take 50 mg by mouth Daily, Disp: , Rfl: Allergies Patient has no known allergies. Past Surgical History Past Surgical History: Procedure Laterality Date BACK SURGERY Family History Family History Problem Relation Name Age of Onset Mental illness Maternal Grandfather Objective General Examination: GENERAL EXAMINATION: Presents ambulatory with double-arm crutch. Bilateral AFOs in place, wearing new balance shoes. Accompanied by caregiver, Herminio. Vascular: DORSALIS PEDIS PULSE: 1/4 bilateral. POSTERIOR TIBIAL PULSE: 1/4 bilateral. CAPILLARY REFILL: <3 seconds. TEMPERATURE GRADIENT: warm to slightly cool. EDEMA: unremarkable for ankle edema. Neurologic: DEEP TENDON REFLEXES: Patellar, Achilles, 0/5. MUSCLE POWER: diffuse flacid paralysis bilateral LE. SHARP SENSATION: absent. SEMMES-RAUL 5.07 MONOFILAMENT: Unable to localize all points plantarly. Dermatologic: SKIN FINDINGS: intact, skin turgor is otherwise good. NAIL PATHOLOGY: dystrophic , discolored. INTERDIGITAL MACERATION: Clean and dry. ULCER: Right foot: dorsolateral midfoot: [place] stage II neuropathic wound; location dorsal-lateral midfoot. Wound bed remains well hydrated, clean and predominantly granular; minimal serous drainage, without undermining, tunneling or probing. Marginal epithelial response is again appreciated. The wound margins are well adhered, slightly raised, fibrotic and keratotic; mildly macerated. There are no clinical signs of infection. Unremarkable for malodor or ischemic changes. Soft tissue envelope well perfused. Chronic, stable fluctuant swelling of the right midfoot. Post-debridement measurements: 06/15/2024: 1.5 x 1.0 x 0.1 cm Post-debridement measurements: 05/27/2024: 1.3 x 0.9 x 0.1 cm Post-debridement measurements: 05/07/2024: 1.5 x 1.0 x 0.1 cm Post-debridement measurements: 04/20/2024: 1.5 x 0.8 x 0.1 cm Post-debridement measurements: 03/31/2024: 1.7 x 0.9 x 0.1 cm Post-debridement measurements: 02/28/2024: 1.7 x 1.4 x 0.1 cm Post-debridement measurements: 02/07/2024: 1.8 x 1.7 x 0.1 cm Post-debridement measurements: 01/28/2024: 1.8 x 1.8 x 0.1 cm Post-debridement measurements: 01/13/2024: 1.9 x 1.8 x 0.2 cm Post-debridement measurements: 01/03/2024: 2.0 x 1.8 x 0.1 cm Post-debridement measurements: 12/27/2023: 2.1 x 1.5 x 0.1 cm Post-debridement measurements: 12/20/2023: 1.9 x 1.5 x 0.1 cm Post-debridement measurements: 12/13/2023: 2.1 x 1.6 x 0.1 cm Post-debridement measurements: 12/05/2023: 2.0 x 1.5 x 0.2 cm Post-debridement measurements: 11/26/2023: 2.5 x 1.6 x 0.2 cm Post-debridement measurements: 11/05/2023: 2.2 x 1.6 x 0.2 cm Post-debridement measurements: 10/15/2023: 2.5 x 1.5 x 0.2 cm Post-debridement measurements: 09/24/2023: 2.5 x 1.7 x 0.2 cm Post-debridement measurements: 09/03/2023: 2.5 x 1.8 x 0.2 cm Post-debridement measurements: 08/09/2023: 2.0 x 1.6 x 0.2 cm Post-debridement measurements: 07/19/2023: 2.0 x 1.7 x 0.2 cm Post-debridement measurements: 06/27/2023: 2.1 x 2.0 x 0.2 cm Post-debridement measurements: 06/05/2023: 2.2 x 1.5 x 0.2 cm Post-debridement measurements: 05/15/2023: 2.0 x 1.5 x 0.2 cm Post-debridement measurements: 04/24/2023: 2.0 x 1.5 x 0.2 cm Post-debridement measurements: 03/29/2023: 2.0 x 1.4 x 0.2 cm Post-debridement measurements: 02/27/2023: 2.0 x 1.1 x 0.2 cm Post-debridement measurements: 01/30/2023: 1.7 x 1.0 x 0.2 cm Post-debridement measurements: 01/03/2023: 1.8 x 1.7 x 0.2 cm Post-debridement measurements: 12/19/2022: 1.8 x 1.0 x 0.2 cm Post-debridement measurements: 11/22/2022: 2.0 x 1.0 x 0.2 cm Post-debridement measurements: 10/30/2022: 1.6 x 1.0 x 0.2 cm Post-debridement measurements: 10/03/2022: 1.6 x 1.0 x 0.2 cm Post-debridement measurements: 09/12/2022: 1.7 x 1.1 x 0.2 cm Post-debridement measurements: 08/27/2022: 1.7 x 1.1 x 0.2 cm Orthopedic: DEFORMITIES: severe gastrocsoleus equinus bilateral. multiple digital deformities. Flaccid PVP foot structure. 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 Radiology: Assessment/Plan 1. [place] stage II neuropathic wound right midfoot; chronic, stable wound. 2. 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 LE neuropathy/LOPS 4. Acquired bilateral foot and LE deformities 5. Acquired hyperkeratotic lesions navicular tuberosity bilateral. 6. Status post Epifix x 10; (#10 applied 03/14/2022) Impression: Wound appears to be responding favorably, measures slightly smaller. Remains clean and stable; without infection or ischemic necrosis. Plan: Clinical Notes: review of clinical findings, high risk nature of the condition and treatment rationale. 1. Sharp debridement and wound preparation followed by Supra SDRM biodegradable matrix application #15 (donated product/assistance program). 2. Dressing intact, clean and dry x 7 days; with instructions to resume or default to Mefix dressings daily as indicated. 3. Offloading measures: Right AFO; compliance remains a challenging problem. Wheelchair as necessary. Procedure: Right foot: Aseptic technique: #15 scalpel: Sharp, active, selective full-thickness excisional debridement; to the level of subcutaneous granular wound bed; excising devitalized, non-viable, dystrophic, fibrous and hyperkeratotic tissue; reducing direct and indirect pressure; reducing wound contamination and bioburden. Sharp curettage of wound bed stimulating granular bleeding. Saline cleansing. Pressure hemostasis. Supra SDRM biodegradable matrix wound dressing applied in stacked technique; Rylon non-adherent dressing; secured with Steri-Strips in a window frame technique; followed by a dry sterile dressing; secured with Mefix under mild Coban compression. This note was created with the assistance of a speech recognition program. While intending to generate a timely document that accurately reflects the content of the visit, no guarantee can be provided that every grammatical or spelling mistake has been or will be identified or corrected. Thank you for your understanding. Maria Luisa Wagner DPM documented in this encounter [facility] 06-15-2024 Instructions Maria Luisa Wagner DPM - 06/15/2024 10:45 AM EST As noted documented in this encounter [facility] 06-09-2024 History of Present illness Narrative Patient presents for Suprapubic catheter change with Caregiver. #24 fr Sp catheter attached to leg bag. Patient prepped and draped and Sp Site cleansed with betadine swabs 2% lidocaine urojet instilled for comfort. # 24 fr Sp klein safely removed with some difficulty and replaced with #24 fr Sp klein catheter 10 cc's to placement balloon. klein then flushed with sterile water with return of 40 mL fluid. Sp klein catheter then attached to drainage bag. Pt. To return in 3 weeks for next S/P catheter change. Hope Gonzalez LPN Ordering Doctor: MD Dania Supervising doctor: MD Dania documented in this encounter [facility] 05-27-2024 History of Present illness Narrative Images from the original note were not included. Subjective Patient ID: Igor Pereira is a 64 y.o. male who presents for Wound care/Nail care (Igor Pereira is a 64 y.o. male who presents for Wound Care.). HPI Follow-up assessment and wound care: Chronic, recalcitrant neuropathic wound; located dorsal lateral surface of the right midfoot. Accompanied by his caregiver, Evelyn. Status post SDRM 13th application (05/07/2024). There remains minimal serous drainage on a daily basis. There has been no streaking. Medications Current Outpatient Medications: acetaminophen (Tylenol) 325 MG tablet, Take by mouth., Disp: , Rfl: amLODIPine (Norvasc) 2.5 MG tablet, Take 2.5 mg by mouth in the morning., Disp: , Rfl: ammonium lactate (Lac-Hydrin) 12 % lotion, Apply topically if needed for dry skin., Disp: , Rfl: bacitracin 500 UNIT/GM ointment, Apply topically 2 (two) times a day., Disp: , Rfl: carbamide peroxide (Debrox) 6.5 % otic solution, 5 drops in the morning and 5 drops before bedtime., Disp: , Rfl: citalopram (CeleXA) 20 MG tablet, Take by mouth., Disp: , Rfl: citalopram (CeleXA) 40 MG tablet, Take 20 mg by mouth., Disp: , Rfl: dextromethorphan 7.5 MG/5ML syrup, Take 7.5 mg by mouth every 6 (six) hours if needed for cough., Disp: , Rfl: dilTIAZem CD (Cardizem CD) 240 MG 24 hr capsule, Take 240 mg by mouth in the morning., Disp: , Rfl: divalproex (Depakote ER) 250 MG 24 hr tablet, Take 250 mg by mouth Daily Do not crush, chew, or split., Disp: , Rfl: ferrous sulfate 325 (65 Fe) MG tablet, Take 325 mg by mouth in the morning. Take with meals., Disp: , Rfl: guaiFENesin (Robitussin) 100 MG/5ML liquid, Take 200 mg by mouth 3 (three) times a day as needed for cough., Disp: , Rfl: hydrocortisone (Proctozone-HC) 2.5 % rectal cream, Insert into the rectum 2 (two) times a day, Disp: , Rfl: Lactobacillus (ACIDOPHILUS PO), Take by mouth., Disp: , Rfl: lactulose (Chronulac) 10 GM/15ML solution, Take 20 g by mouth in the morning and 20 g in the evening and 20 g before bedtime., Disp: , Rfl: LACTULOSE ENCEPHALOPATHY PO, Take by mouth., Disp: , Rfl: lisinopril 30 MG tablet, Take by mouth Daily, Disp: , Rfl: LORazepam (Ativan) 2 MG tablet, Take 2 mg by mouth., Disp: , Rfl: meloxicam (Mobic) 7.5 MG tablet, Take by mouth., Disp: , Rfl: Menthol-Zinc Oxide (Calmoseptine) 0.44-20.6 % ointment, Apply topically, Disp: , Rfl: miconazole (Micotin) 2 % powder, Apply topically if needed for itching., Disp: , Rfl: Mirabegron (MYRBETRIQ PO), Take by mouth., Disp: , Rfl: Multiple Vitamin (multivitamin) tablet, Take 1 tablet by mouth in the morning., Disp: , Rfl: Multiple Vitamins-Minerals (TAB-A-XIOMARA MAXIMUM PO), Take by mouth., Disp: , Rfl: omega-3 acid ethyl esters (Lovaza) 1 g capsule, Take 1 g by mouth in the morning and 1 g before bedtime., Disp: , Rfl: oxybutynin XL (Ditropan-XL) 15 MG 24 hr tablet, Take 15 mg by mouth in the morning. Do not crush, chew, or split. ., Disp: , Rfl: polyethylene glycol, PEG, 3350 (Glycolax) 17 GM/SCOOP powder, Take by mouth., Disp: , Rfl: psyllium (Metamucil) 28 % packet, Take 1 packet by mouth in the morning and 1 packet before bedtime. Mix and drink with at least 8 ounces of water or juice.., Disp: , Rfl: raNITIdine (Zantac) 150 MG tablet, Take 150 mg by mouth in the morning and 150 mg before bedtime., Disp: , Rfl: risperiDONE (RisperDAL) 2 MG tablet, Take 1.5 mg by mouth in the morning and 1.5 mg before bedtime., Disp: , Rfl: senna-docusate (Fatimah-Colace) 8.6-50 MG tablet, Take 1 tablet by mouth in the morning., Disp: , Rfl: simvastatin (Zocor) 10 MG tablet, Take 10 mg by mouth at bedtime., Disp: , Rfl: Skin Protectants, Misc. (DERMACERIN EX), Apply topically, Disp: , Rfl: sodium phosphate (Fleet) 3.5-9.5 GM/59ML enema, Insert into the rectum, Disp: , Rfl: Water For Irrigation, Sterile ([place] Sterile Water) solution, Irrigate with as directed, Disp: , Rfl: zinc gluconate 50 MG tablet, Take 50 mg by mouth Daily, Disp: , Rfl: Allergies Patient has no known allergies. Past Surgical History Past Surgical History: Procedure Laterality Date BACK SURGERY Family History Family History Problem Relation Name Age of Onset Mental illness Maternal Grandfather Objective General Examination: GENERAL EXAMINATION: Presents ambulatory with double-arm crutch. Bilateral AFOs in place, wearing new balance shoes. Accompanied by caregiver, Evelyn. Vascular: DORSALIS PEDIS PULSE: 1/4 bilateral. POSTERIOR TIBIAL PULSE: 1/4 bilateral. CAPILLARY REFILL: <3 seconds. TEMPERATURE GRADIENT: warm to slightly cool. EDEMA: unremarkable for ankle edema. Neurologic: DEEP TENDON REFLEXES: Patellar, Achilles, 0/5. MUSCLE POWER: diffuse flacid paralysis bilateral LE. SHARP SENSATION: absent. SEMMES-RAUL 5.07 MONOFILAMENT: Unable to localize all points plantarly. Dermatologic: SKIN FINDINGS: intact, skin turgor is otherwise good. NAIL PATHOLOGY: dystrophic , discolored. INTERDIGITAL MACERATION: Clean and dry. ULCER: Right foot: dorsolateral midfoot: [place] stage II neuropathic wound; location dorsal-lateral midfoot; appearance and shape of the wound has changed. Wound bed remains well hydrated, clean and predominantly granular; minimal serous drainage, without undermining, tunneling or probing. Marginal epithelial response is again appreciated; particularly along the proximal wound margin. The wound margins are well adhered, slightly raised, fibrotic and keratotic; moderately macerated. There are no clinical signs of infection. Unremarkable for malodor or ischemic changes. Soft tissue envelope well perfused. Chronic, stable fluctuant swelling of the right midfoot. Post-debridement measurements: 05/27/2024: 1.3 x 0.9 x 0.1 cm Post-debridement measurements: 05/07/2024: 1.5 x 1.0 x 0.1 cm Post-debridement measurements: 04/20/2024: 1.5 x 0.8 x 0.1 cm Post-debridement measurements: 03/31/2024: 1.7 x 0.9 x 0.1 cm Post-debridement measurements: 02/28/2024: 1.7 x 1.4 x 0.1 cm Post-debridement measurements: 02/07/2024: 1.8 x 1.7 x 0.1 cm Post-debridement measurements: 01/28/2024: 1.8 x 1.8 x 0.1 cm Post-debridement measurements: 01/13/2024: 1.9 x 1.8 x 0.2 cm Post-debridement measurements: 01/03/2024: 2.0 x 1.8 x 0.1 cm Post-debridement measurements: 12/27/2023: 2.1 x 1.5 x 0.1 cm Post-debridement measurements: 12/20/2023: 1.9 x 1.5 x 0.1 cm Post-debridement measurements: 12/13/2023: 2.1 x 1.6 x 0.1 cm Post-debridement measurements: 12/05/2023: 2.0 x 1.5 x 0.2 cm Post-debridement measurements: 11/26/2023: 2.5 x 1.6 x 0.2 cm Post-debridement measurements: 11/05/2023: 2.2 x 1.6 x 0.2 cm Post-debridement measurements: 10/15/2023: 2.5 x 1.5 x 0.2 cm Post-debridement measurements: 09/24/2023: 2.5 x 1.7 x 0.2 cm Post-debridement measurements: 09/03/2023: 2.5 x 1.8 x 0.2 cm Post-debridement measurements: 08/09/2023: 2.0 x 1.6 x 0.2 cm Post-debridement measurements: 07/19/2023: 2.0 x 1.7 x 0.2 cm Post-debridement measurements: 06/27/2023: 2.1 x 2.0 x 0.2 cm Post-debridement measurements: 06/05/2023: 2.2 x 1.5 x 0.2 cm Post-debridement measurements: 05/15/2023: 2.0 x 1.5 x 0.2 cm Post-debridement measurements: 04/24/2023: 2.0 x 1.5 x 0.2 cm Post-debridement measurements: 03/29/2023: 2.0 x 1.4 x 0.2 cm Post-debridement measurements: 02/27/2023: 2.0 x 1.1 x 0.2 cm Post-debridement measurements: 01/30/2023: 1.7 x 1.0 x 0.2 cm Post-debridement measurements: 01/03/2023: 1.8 x 1.7 x 0.2 cm Post-debridement measurements: 12/19/2022: 1.8 x 1.0 x 0.2 cm Post-debridement measurements: 11/22/2022: 2.0 x 1.0 x 0.2 cm Post-debridement measurements: 10/30/2022: 1.6 x 1.0 x 0.2 cm Post-debridement measurements: 10/03/2022: 1.6 x 1.0 x 0.2 cm Post-debridement measurements: 09/12/2022: 1.7 x 1.1 x 0.2 cm Post-debridement measurements: 08/27/2022: 1.7 x 1.1 x 0.2 cm Orthopedic: DEFORMITIES: severe gastrocsoleus equinus bilateral. multiple digital deformities. Flaccid PVP foot structure. 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 Radiology: Assessment/Plan 1. [place] stage II neuropathic wound right midfoot; chronic, stable wound. 2. 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 LE neuropathy/LOPS 4. Acquired bilateral foot and LE deformities 5. Acquired hyperkeratotic lesions navicular tuberosity bilateral. 6. Status post Epifix x 10; (#10 applied 03/14/2022) Impression: Wound appears to be responding favorably, measures slightly smaller. Remains clean and stable; without infection or ischemic necrosis. Plan: Clinical Notes: review of clinical findings, high risk nature of the condition and treatment rationale. 1. Sharp debridement and wound preparation followed by Supra SDRM biodegradable matrix application #14 (donated product/assistance program). 2. Dressing intact, clean and dry x 7 days; with instructions to resume or default to Mefix dressings daily as indicated. 3. Offloading measures: Right AFO; compliance remains a challenging problem. Wheelchair as necessary. Procedure: Right foot: Aseptic technique: #15 scalpel: Sharp, active, selective full-thickness excisional debridement; to the level of subcutaneous granular wound bed; excising devitalized, non-viable, dystrophic, fibrous and hyperkeratotic tissue; reducing direct and indirect pressure; reducing wound contamination and bioburden. Sharp curettage of wound bed stimulating granular bleeding. Saline cleansing. Pressure hemostasis. Supra SDRM biodegradable matrix wound dressing applied in stacked technique; Rylon non-adherent dressing; secured with Steri-Strips in a window frame technique; followed by a dry sterile dressing; secured with Mefix under mild Coban compression. This note was created with the assistance of a speech recognition program. While intending to generate a timely document that accurately reflects the content of the visit, no guarantee can be provided that every grammatical or spelling mistake has been or will be identified or corrected. Thank you for your understanding. Maria Luisa Wagner DPM documented in this encounter [facility] 05-27-2024 Instructions Maria Luisa Wagner DPM - 05/27/2024 1:45 PM EST Wound care measures as noted documented in this encounter [facility] 05-25-2024 History of Present illness Narrative The OARRS/MAPPS database was reviewed today and found to be appropriate. No indication of medication diversion, or non compliance. EVY Miner 05/25/24 1223 documented in this encounter [facility] 05-07-2024 History of Present illness Narrative Images from the original note were not included. Subjective Patient ID: Igor Pereira is a 64 y.o. male who presents for Foot Ulcer (Igor Pereira is a 64 y.o. male who presents for Wound Care.). HPI Follow-up assessment and wound care: Chronic, recalcitrant neuropathic wound; located dorsal lateral surface of the right midfoot. Accompanied by his caregiver, Herminio. Status post SDRM 12th application (04/20/2024). Dressing has remained on the right foot; but has recently displaced; resulting in exposure of the wound. There remains minimal serous drainage on a daily basis. There has been no streaking. Medications Current Outpatient Medications: acetaminophen (Tylenol) 325 MG tablet, Take by mouth., Disp: , Rfl: amLODIPine (Norvasc) 2.5 MG tablet, Take 2.5 mg by mouth in the morning., Disp: , Rfl: ammonium lactate (Lac-Hydrin) 12 % lotion, Apply topically if needed for dry skin., Disp: , Rfl: bacitracin 500 UNIT/GM ointment, Apply topically 2 (two) times a day., Disp: , Rfl: carbamide peroxide (Debrox) 6.5 % otic solution, 5 drops in the morning and 5 drops before bedtime., Disp: , Rfl: citalopram (CeleXA) 20 MG tablet, Take by mouth., Disp: , Rfl: citalopram (CeleXA) 40 MG tablet, Take 20 mg by mouth., Disp: , Rfl: dextromethorphan 7.5 MG/5ML syrup, Take 7.5 mg by mouth every 6 (six) hours if needed for cough., Disp: , Rfl: dilTIAZem CD (Cardizem CD) 240 MG 24 hr capsule, Take 240 mg by mouth in the morning., Disp: , Rfl: divalproex (Depakote ER) 250 MG 24 hr tablet, Take 250 mg by mouth Daily Do not crush, chew, or split., Disp: , Rfl: ferrous sulfate 325 (65 Fe) MG tablet, Take 325 mg by mouth in the morning. Take with meals., Disp: , Rfl: guaiFENesin (Robitussin) 100 MG/5ML liquid, Take 200 mg by mouth 3 (three) times a day as needed for cough., Disp: , Rfl: hydrocortisone (Proctozone-HC) 2.5 % rectal cream, Insert into the rectum 2 (two) times a day, Disp: , Rfl: Lactobacillus (ACIDOPHILUS PO), Take by mouth., Disp: , Rfl: lactulose (Chronulac) 10 GM/15ML solution, Take 20 g by mouth in the morning and 20 g in the evening and 20 g before bedtime., Disp: , Rfl: LACTULOSE ENCEPHALOPATHY PO, Take by mouth., Disp: , Rfl: lisinopril 30 MG tablet, Take by mouth Daily, Disp: , Rfl: LORazepam (Ativan) 2 MG tablet, Take 2 mg by mouth., Disp: , Rfl: meloxicam (Mobic) 7.5 MG tablet, Take by mouth., Disp: , Rfl: Menthol-Zinc Oxide (Calmoseptine) 0.44-20.6 % ointment, Apply topically, Disp: , Rfl: miconazole (Micotin) 2 % powder, Apply topically if needed for itching., Disp: , Rfl: Mirabegron (MYRBETRIQ PO), Take by mouth., Disp: , Rfl: Multiple Vitamin (multivitamin) tablet, Take 1 tablet by mouth in the morning., Disp: , Rfl: Multiple Vitamins-Minerals (TAB-A-XIOMARA MAXIMUM PO), Take by mouth., Disp: , Rfl: omega-3 acid ethyl esters (Lovaza) 1 g capsule, Take 1 g by mouth in the morning and 1 g before bedtime., Disp: , Rfl: oxybutynin XL (Ditropan-XL) 15 MG 24 hr tablet, Take 15 mg by mouth in the morning. Do not crush, chew, or split. ., Disp: , Rfl: polyethylene glycol, PEG, 3350 (Glycolax) 17 GM/SCOOP powder, Take by mouth., Disp: , Rfl: psyllium (Metamucil) 28 % packet, Take 1 packet by mouth in the morning and 1 packet before bedtime. Mix and drink with at least 8 ounces of water or juice.., Disp: , Rfl: raNITIdine (Zantac) 150 MG tablet, Take 150 mg by mouth in the morning and 150 mg before bedtime., Disp: , Rfl: risperiDONE (RisperDAL) 2 MG tablet, Take 1.5 mg by mouth in the morning and 1.5 mg before bedtime., Disp: , Rfl: senna-docusate (Fatimah-Colace) 8.6-50 MG tablet, Take 1 tablet by mouth in the morning., Disp: , Rfl: simvastatin (Zocor) 10 MG tablet, Take 10 mg by mouth at bedtime., Disp: , Rfl: Skin Protectants, Misc. (DERMACERIN EX), Apply topically, Disp: , Rfl: sodium phosphate (Fleet) 3.5-9.5 GM/59ML enema, Insert into the rectum, Disp: , Rfl: Water For Irrigation, Sterile ([place] Sterile Water) solution, Irrigate with as directed, Disp: , Rfl: zinc gluconate 50 MG tablet, Take 50 mg by mouth Daily, Disp: , Rfl: Allergies Patient has no known allergies. Past Surgical History Past Surgical History: Procedure Laterality Date BACK SURGERY Family History Family History Problem Relation Name Age of Onset Mental illness Maternal Grandfather Objective General Examination: GENERAL EXAMINATION: Presents ambulatory with double-arm crutch. Bilateral AFOs in place, wearing new balance shoes. Accompanied by caregiver, Herminio. Vascular: DORSALIS PEDIS PULSE: 1/4 bilateral. POSTERIOR TIBIAL PULSE: 1/4 bilateral. CAPILLARY REFILL: <3 seconds. TEMPERATURE GRADIENT: warm to slightly cool. EDEMA: unremarkable for ankle edema. Neurologic: DEEP TENDON REFLEXES: Patellar, Achilles, 0/5. MUSCLE POWER: diffuse flacid paralysis bilateral LE. SHARP SENSATION: absent. SEMMES-RAUL 5.07 MONOFILAMENT: Unable to localize all points plantarly. Dermatologic: SKIN FINDINGS: intact, skin turgor is otherwise good. NAIL PATHOLOGY: dystrophic , discolored. INTERDIGITAL MACERATION: Clean and dry. ULCER: Right foot: dorsolateral midfoot: [place] stage II neuropathic wound; location dorsal-lateral midfoot; appearance and shape of the wound has changed. Wound bed remains well hydrated, clean and predominantly granular; minimal serous drainage, without undermining, tunneling or probing. Marginal epithelial response is again appreciated; particularly along the proximal wound margin. The wound margins are well adhered, slightly raised, fibrotic and keratotic; mildly macerated. There are no clinical signs of infection. Unremarkable for malodor or ischemic changes. Soft tissue envelope well perfused. Chronic, stable fluctuant swelling of the right midfoot. Post-debridement measurements: 05/07/2024: 1.5 x 1.0 x 0.1 cm Post-debridement measurements: 04/20/2024: 1.5 x 0.8 x 0.1 cm Post-debridement measurements: 03/31/2024: 1.7 x 0.9 x 0.1 cm Post-debridement measurements: 02/28/2024: 1.7 x 1.4 x 0.1 cm Post-debridement measurements: 02/07/2024: 1.8 x 1.7 x 0.1 cm Post-debridement measurements: 01/28/2024: 1.8 x 1.8 x 0.1 cm Post-debridement measurements: 01/13/2024: 1.9 x 1.8 x 0.2 cm Post-debridement measurements: 01/03/2024: 2.0 x 1.8 x 0.1 cm Post-debridement measurements: 12/27/2023: 2.1 x 1.5 x 0.1 cm Post-debridement measurements: 12/20/2023: 1.9 x 1.5 x 0.1 cm Post-debridement measurements: 12/13/2023: 2.1 x 1.6 x 0.1 cm Post-debridement measurements: 12/05/2023: 2.0 x 1.5 x 0.2 cm Post-debridement measurements: 11/26/2023: 2.5 x 1.6 x 0.2 cm Post-debridement measurements: 11/05/2023: 2.2 x 1.6 x 0.2 cm Post-debridement measurements: 10/15/2023: 2.5 x 1.5 x 0.2 cm Post-debridement measurements: 09/24/2023: 2.5 x 1.7 x 0.2 cm Post-debridement measurements: 09/03/2023: 2.5 x 1.8 x 0.2 cm Post-debridement measurements: 08/09/2023: 2.0 x 1.6 x 0.2 cm Post-debridement measurements: 07/19/2023: 2.0 x 1.7 x 0.2 cm Post-debridement measurements: 06/27/2023: 2.1 x 2.0 x 0.2 cm Post-debridement measurements: 06/05/2023: 2.2 x 1.5 x 0.2 cm Post-debridement measurements: 05/15/2023: 2.0 x 1.5 x 0.2 cm Post-debridement measurements: 04/24/2023: 2.0 x 1.5 x 0.2 cm Post-debridement measurements: 03/29/2023: 2.0 x 1.4 x 0.2 cm Post-debridement measurements: 02/27/2023: 2.0 x 1.1 x 0.2 cm Post-debridement measurements: 01/30/2023: 1.7 x 1.0 x 0.2 cm Post-debridement measurements: 01/03/2023: 1.8 x 1.7 x 0.2 cm Post-debridement measurements: 12/19/2022: 1.8 x 1.0 x 0.2 cm Post-debridement measurements: 11/22/2022: 2.0 x 1.0 x 0.2 cm Post-debridement measurements: 10/30/2022: 1.6 x 1.0 x 0.2 cm Post-debridement measurements: 10/03/2022: 1.6 x 1.0 x 0.2 cm Post-debridement measurements: 09/12/2022: 1.7 x 1.1 x 0.2 cm Post-debridement measurements: 08/27/2022: 1.7 x 1.1 x 0.2 cm Orthopedic: DEFORMITIES: severe gastrocsoleus equinus bilateral. multiple digital deformities. Flaccid PVP foot structure. 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 Radiology: Assessment/Plan 1. [place] stage II neuropathic wound right midfoot; chronic, stable wound. Previous wounds remain well-healed. 2. 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 LE neuropathy/LOPS 4. Acquired bilateral foot and LE deformities 5. Acquired hyperkeratotic lesions navicular tuberosity bilateral. 6. Status post Epifix x 10; (#10 applied 03/14/2022) Impression: Clean stable recalcitrant wound; without progression towards secondary intention healing. Plan: Clinical Notes: review of clinical findings, high risk nature of the condition and treatment rationale. 1. Sharp debridement and wound preparation followed by Supra SDRM biodegradable matrix application #13 (donated product/assistance program). 2. Dressing intact, clean and dry x 7 days; with instructions to resume or default to Mefix dressings daily as indicated. 3. Offloading measures: Right AFO; compliance remains a challenging problem. Wheelchair as necessary. Procedure: Right foot: Aseptic technique: #15 scalpel: Sharp, active, selective full-thickness excisional debridement; to the level of subcutaneous granular wound bed; excising devitalized, non-viable, dystrophic, fibrous and hyperkeratotic tissue; reducing direct and indirect pressure; reducing wound contamination and bioburden. Sharp curettage of wound bed stimulating granular bleeding. Saline cleansing. Pressure hemostasis. Supra SDRM biodegradable matrix wound dressing applied in stacked technique; Rylon non-adherent dressing; secured with Steri-Strips in a window frame technique; followed by a dry sterile dressing; secured with Mefix under mild Coban compression. This note was created with the assistance of a speech recognition program. While intending to generate a timely document that accurately reflects the content of the visit, no guarantee can be provided that every grammatical or spelling mistake has been or will be identified or corrected. Thank you for your understanding. Maria Luisa Wagner DPM documented in this encounter [facility] 05-07-2024 Instructions Maria Luisa Wagner DPM - 05/07/2024 1:45 PM EST Wound care measures as noted documented in this encounter [facility] 04-20-2024 History of Present illness Narrative Images from the original note were not included. Subjective Patient ID: Igor Pereira is a 64 y.o. male who presents for Wound Care (Igor Pereira is a 64 y.o. male who presents for Wound Care. ). HPI Follow-up assessment and wound care: Chronic, recalcitrant neuropathic wound; located dorsal lateral surface of the right midfoot. Accompanied by his caregiver, Khang. Status post SDRM 10th application (02/28/2024). Dressing remained in place again nearly 1 week; with default to [place] dressings. There remains minimal serous drainage on a daily basis. There has been no streaking. Medications Current Outpatient Medications: acetaminophen (Tylenol) 325 MG tablet, Take by mouth., Disp: , Rfl: amLODIPine (Norvasc) 2.5 MG tablet, Take 2.5 mg by mouth in the morning., Disp: , Rfl: ammonium lactate (Lac-Hydrin) 12 % lotion, Apply topically if needed for dry skin., Disp: , Rfl: bacitracin 500 UNIT/GM ointment, Apply topically 2 (two) times a day., Disp: , Rfl: carbamide peroxide (Debrox) 6.5 % otic solution, 5 drops in the morning and 5 drops before bedtime., Disp: , Rfl: citalopram (CeleXA) 20 MG tablet, Take by mouth., Disp: , Rfl: citalopram (CeleXA) 40 MG tablet, Take 20 mg by mouth., Disp: , Rfl: dextromethorphan 7.5 MG/5ML syrup, Take 7.5 mg by mouth every 6 (six) hours if needed for cough., Disp: , Rfl: dilTIAZem CD (Cardizem CD) 240 MG 24 hr capsule, Take 240 mg by mouth in the morning., Disp: , Rfl: divalproex (Depakote ER) 250 MG 24 hr tablet, Take 250 mg by mouth Daily Do not crush, chew, or split., Disp: , Rfl: ferrous sulfate 325 (65 Fe) MG tablet, Take 325 mg by mouth in the morning. Take with meals., Disp: , Rfl: guaiFENesin (Robitussin) 100 MG/5ML liquid, Take 200 mg by mouth 3 (three) times a day as needed for cough., Disp: , Rfl: hydrocortisone (Proctozone-HC) 2.5 % rectal cream, Insert into the rectum 2 (two) times a day, Disp: , Rfl: Lactobacillus (ACIDOPHILUS PO), Take by mouth., Disp: , Rfl: lactulose (Chronulac) 10 GM/15ML solution, Take 20 g by mouth in the morning and 20 g in the evening and 20 g before bedtime., Disp: , Rfl: LACTULOSE ENCEPHALOPATHY PO, Take by mouth., Disp: , Rfl: lisinopril 30 MG tablet, Take by mouth Daily, Disp: , Rfl: LORazepam (Ativan) 2 MG tablet, Take 2 mg by mouth., Disp: , Rfl: meloxicam (Mobic) 7.5 MG tablet, Take by mouth., Disp: , Rfl: Menthol-Zinc Oxide (Calmoseptine) 0.44-20.6 % ointment, Apply topically, Disp: , Rfl: miconazole (Micotin) 2 % powder, Apply topically if needed for itching., Disp: , Rfl: Mirabegron (MYRBETRIQ PO), Take by mouth., Disp: , Rfl: Multiple Vitamin (multivitamin) tablet, Take 1 tablet by mouth in the morning., Disp: , Rfl: Multiple Vitamins-Minerals (TAB-A-XIOMARA MAXIMUM PO), Take by mouth., Disp: , Rfl: omega-3 acid ethyl esters (Lovaza) 1 g capsule, Take 1 g by mouth in the morning and 1 g before bedtime., Disp: , Rfl: oxybutynin XL (Ditropan-XL) 15 MG 24 hr tablet, Take 15 mg by mouth in the morning. Do not crush, chew, or split. ., Disp: , Rfl: polyethylene glycol, PEG, 3350 (Glycolax) 17 GM/SCOOP powder, Take by mouth., Disp: , Rfl: psyllium (Metamucil) 28 % packet, Take 1 packet by mouth in the morning and 1 packet before bedtime. Mix and drink with at least 8 ounces of water or juice.., Disp: , Rfl: raNITIdine (Zantac) 150 MG tablet, Take 150 mg by mouth in the morning and 150 mg before bedtime., Disp: , Rfl: risperiDONE (RisperDAL) 2 MG tablet, Take 1.5 mg by mouth in the morning and 1.5 mg before bedtime., Disp: , Rfl: senna-docusate (Fatimah-Colace) 8.6-50 MG tablet, Take 1 tablet by mouth in the morning., Disp: , Rfl: simvastatin (Zocor) 10 MG tablet, Take 10 mg by mouth at bedtime., Disp: , Rfl: Skin Protectants, Misc. (DERMACERIN EX), Apply topically, Disp: , Rfl: sodium phosphate (Fleet) 3.5-9.5 GM/59ML enema, Insert into the rectum, Disp: , Rfl: Water For Irrigation, Sterile ([place] Sterile Water) solution, Irrigate with as directed, Disp: , Rfl: zinc gluconate 50 MG tablet, Take 50 mg by mouth Daily, Disp: , Rfl: Allergies Patient has no known allergies. Past Surgical History Past Surgical History: Procedure Laterality Date BACK SURGERY Family History Family History Problem Relation Name Age of Onset Mental illness Maternal Grandfather Objective General Examination: GENERAL EXAMINATION: Presents ambulatory with double-arm crutch. Bilateral AFOs in place, wearing new balance shoes. Accompanied by caregiver, Khang. Vascular: DORSALIS PEDIS PULSE: 1/4 bilateral. POSTERIOR TIBIAL PULSE: 1/4 bilateral. CAPILLARY REFILL: <3 seconds. TEMPERATURE GRADIENT: warm to slightly cool. EDEMA: unremarkable for ankle edema. Neurologic: DEEP TENDON REFLEXES: Patellar, Achilles, 0/5. MUSCLE POWER: diffuse flacid paralysis bilateral LE. SHARP SENSATION: absent. SEMMES-RAUL 5.07 MONOFILAMENT: Unable to localize all points plantarly. Dermatologic: SKIN FINDINGS: intact, skin turgor is otherwise good. NAIL PATHOLOGY: dystrophic , discolored. INTERDIGITAL MACERATION: Clean and dry. ULCER: Right foot: dorsolateral midfoot: [place] stage II neuropathic wound; location dorsal-lateral midfoot; appearance and shape of the wound has changed. Wound bed remains well hydrated, clean and predominantly granular; minimal serous drainage, without undermining, tunneling or probing. Marginal epithelial response is again appreciated; particularly along the proximal wound margin. The wound margins are well adhered, slightly raised, fibrotic and keratotic; mildly macerated. There are no clinical signs of infection. Unremarkable for malodor or ischemic changes. Soft tissue envelope well perfused. Chronic, stable fluctuant swelling of the right midfoot. Post-debridement measurements: 04/20/2024: 1.5 x 0.8 x 0.1 cm Post-debridement measurements: 03/31/2024: 1.7 x 0.9 x 0.1 cm Post-debridement measurements: 02/28/2024: 1.7 x 1.4 x 0.1 cm Post-debridement measurements: 02/07/2024: 1.8 x 1.7 x 0.1 cm Post-debridement measurements: 01/28/2024: 1.8 x 1.8 x 0.1 cm Post-debridement measurements: 01/13/2024: 1.9 x 1.8 x 0.2 cm Post-debridement measurements: 01/03/2024: 2.0 x 1.8 x 0.1 cm Post-debridement measurements: 12/27/2023: 2.1 x 1.5 x 0.1 cm Post-debridement measurements: 12/20/2023: 1.9 x 1.5 x 0.1 cm Post-debridement measurements: 12/13/2023: 2.1 x 1.6 x 0.1 cm Post-debridement measurements: 12/05/2023: 2.0 x 1.5 x 0.2 cm Post-debridement measurements: 11/26/2023: 2.5 x 1.6 x 0.2 cm Post-debridement measurements: 11/05/2023: 2.2 x 1.6 x 0.2 cm Post-debridement measurements: 10/15/2023: 2.5 x 1.5 x 0.2 cm Post-debridement measurements: 09/24/2023: 2.5 x 1.7 x 0.2 cm Post-debridement measurements: 09/03/2023: 2.5 x 1.8 x 0.2 cm Post-debridement measurements: 08/09/2023: 2.0 x 1.6 x 0.2 cm Post-debridement measurements: 07/19/2023: 2.0 x 1.7 x 0.2 cm Post-debridement measurements: 06/27/2023: 2.1 x 2.0 x 0.2 cm Post-debridement measurements: 06/05/2023: 2.2 x 1.5 x 0.2 cm Post-debridement measurements: 05/15/2023: 2.0 x 1.5 x 0.2 cm Post-debridement measurements: 04/24/2023: 2.0 x 1.5 x 0.2 cm Post-debridement measurements: 03/29/2023: 2.0 x 1.4 x 0.2 cm Post-debridement measurements: 02/27/2023: 2.0 x 1.1 x 0.2 cm Post-debridement measurements: 01/30/2023: 1.7 x 1.0 x 0.2 cm Post-debridement measurements: 01/03/2023: 1.8 x 1.7 x 0.2 cm Post-debridement measurements: 12/19/2022: 1.8 x 1.0 x 0.2 cm Post-debridement measurements: 11/22/2022: 2.0 x 1.0 x 0.2 cm Post-debridement measurements: 10/30/2022: 1.6 x 1.0 x 0.2 cm Post-debridement measurements: 10/03/2022: 1.6 x 1.0 x 0.2 cm Post-debridement measurements: 09/12/2022: 1.7 x 1.1 x 0.2 cm Post-debridement measurements: 08/27/2022: 1.7 x 1.1 x 0.2 cm Orthopedic: DEFORMITIES: severe gastrocsoleus equinus bilateral. multiple digital deformities. Flaccid PVP foot structure. 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 Radiology: Assessment/Plan 1. Sal[place] stage II neuropathic wound right midfoot; chronic, stable wound. Previous wounds remain well-healed. 2. 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 LE neuropathy/LOPS 4. Acquired bilateral foot and LE deformities 5. Acquired hyperkeratotic lesions navicular tuberosity bilateral. 6. Status post Epifix x 10; (#10 applied 03/14/2022) Impression: Clean stable recalcitrant wound; without progression towards secondary intention healing. Plan: Clinical Notes: review of clinical findings, high risk nature of the condition and treatment rationale. 1. Sharp debridement and wound preparation followed by Supra SDRM biodegradable matrix application #12 (donated product/assistance program). 2. Dressing intact, clean and dry x 7 days; with instructions to resume or default to Mefix dressings daily as indicated. 3. Offloading measures: Right AFO; compliance remains a challenging problem. Wheelchair as necessary. Procedure: Right foot: Aseptic technique: #15 scalpel: Sharp, active, selective full-thickness excisional debridement; to the level of subcutaneous granular wound bed; excising devitalized, non-viable, dystrophic, fibrous and hyperkeratotic tissue, particularly of the wound perimeter, reducing direct and indirect pressure; reducing wound contamination and bioburden. Sharp curettage of wound bed stimulating granular bleeding. Saline cleansing. Pressure hemostasis. Supra SDRM biodegradable matrix wound dressing applied in stacked technique; Rylon non-adherent dressing; secured with Steri-Strips in a window frame technique; followed by a dry sterile dressing; secured with Mefix under mild Coban compression. This note was created with the assistance of a speech recognition program. While intending to generate a timely document that accurately reflects the content of the visit, no guarantee can be provided that every grammatical or spelling mistake has been or will be identified or corrected. Thank you for your understanding. Maria Luisa Wagner DPM documented in this encounter [facility] 04-20-2024 Instructions Maria Luisa Wagner DPM - 04/20/2024 3:30 PM EST Wound care measures as noted documented in this encounter [facility] 04-14-2024 History of Present illness Narrative Patient presents for Suprapubic catheter change accompanied by his Caregiver, with # 24 fr Sp catheter attached to leg bag. Patient prepped and draped and Sp Site cleansed with betadine swabs 2%. # 24 fr Sp klein safely removed and replaced with # 24 fr Sp klein catheter 10 cc's to placement balloon. klein then flushed with sterile water with return of 40 mL fluid. Sp klein catheter then attached to leg bag. Pt. Tolerated well. Will return in 3-4 weeks for new catheter change. Hope Gonzalez LPN Ordering Doctor: MD Dania Supervising doctor: MD Dania documented in this encounter [facility] 04-08-2024 History of Present illness Narrative Labs drawn in office today EVY Miner 04/08/24 0901 documented in this encounter [facility] 04-03-2024 History of Present illness Narrative Patient Name: Igor Pereira Date of : 1960 Date of Service: 04/07/2024 Facility: [facility] Igor Pereira is a 64 y.o. male seen today at [facility] for Chief Complaint Patient presents with routine follow up . Resides at [facility] [place] Accompanied by RN today. Total care provided by staff, including medication administration. Attends daily workshop Severe cognitive and intellectual delay. Able to verbalize needs in short phrases and facial expressions. RN reports Igor has been doing well. There is no concerns today. Hypertension This is a chronic problem. The [...] of both ears 01/29/2017 Colon polyps Hydrocephalus ([facility]) Hydronephrosis Hypertension Neurogenic bladder Restlessness and agitation 01/10/2017 Spina bifida of lumbar spine (CMS-HCC) Stricture, ureter Suprapubic catheter (CMS-HCC) Urinary tract infection Past Surgical History: Procedure Laterality Date BLADDER SURGERY suprapubic catheter placement COLONOSCOPY N/A 02/15/2022 Performed by Annette Box DO at [facility] COLONOSCOPY N/A 12/17/2016 Performed by Annette Box DO at [facility] SPINE SURGERY Family History Problem Relation [...] MG IN 24 HOURS) 60 tablet 11 acidophilus-pectin, citrus 100 million cell-10 mg capsule TAKE 1 CAPSULE BY MOUTH THREE TIMES DAILY (8AM,3PM,8PM) 93 capsule 11 amLODIPine (NORVASC) 2.5 mg tablet take 1 tablet by mouth once every day 31 tablet 11 ammonium lactate (AMLACTIN) 12 % cream Apply 1 Application topically as needed for dry skin. CALMOSEPTINE 0.44-20.6 % ointment APPLY TOPICALLY TO BUTTOCK TWICE DAILY;APPLY TOPICALLY TO BUTTOCK NEEDED 113 g 11 CHEST CONGESTION RELIEF 100 mg/5 mL syrup TAKE 10 ML BY MOUTH EVERY 6 HOURS NEEDED FOR COUGH 473 mL 11 citalopram (CeleXA) 40 mg tablet Take 1 tablet (40 mg total) by mouth in the morning. 31 tablet 11 DERMACERIN cream APPLY TOPICALLY TO SITES ON BILATERAL FEET ONCE EVERY DAY (6AM) 106 g 11 dilTIAZem CD (CARDIZEM CD) 240 mg 24 hr capsule TAKE 1 CAPSULE BY MOUTH ONCE EVERY DAY 31 capsule 11 divalproex (DEPAKOTE ER) 250 mg 24 hr tablet Take 3 tablets (750 mg total) by mouth nightly. 93 tablet 11 ENEMA DISPOSABLE 19-7 gram/118 mL [...] mL 11 lisinopriL (PRINIVIL,ZESTRIL) 30 mg tablet take 1 tablet by mouth once every day 31 tablet 11 LORazepam (ATIVAN) 2 mg tablet TAKE 1 TABLET BY MOUTH 1 HR PRIOR TO PHYSICIAN APPTS, PROCEDURES, LAB DRAWS OR DIAGNOSTIC TESTING NEEDED 10 tablet 1 meloxicam (MOBIC) 7.5 mg tablet take 1 tablet by mouth every morning 31 tablet 11 multivitamin with iron (TAB-A-XIOMARA/IRON ORAL) See Admin Instructions. MYRBETRIQ 50 mg tablet extended release 24 hr take 1 tablet by mouth once every day 31 tablet 11 oxybutynin XL (DITROPAN XL) [...] DAY WITH MORNING MEDS 60 Wafer 11 psyllium husk, with sugar, (METAMUCIL FIBER THIN) 2.5 gram wafer TAKE 2 WAFERS BY MOUTH ONCE EVERY DAY WITH MORNING MEDS 60 each 11 risperiDONE (RisperDAL) 2 mg tablet Take 1 tablet (2 mg total) by mouth in the morning and 1 tablet (2 mg total) before bedtime. 60 tablet 12 SENNA PLUS 8.6-50 mg TAKE 2 TABLETS (17.2-100MG) BY MOUTH EVERY NIGHT AT BEDTIME 62 tablet 11 simvastatin (ZOCOR) 10 mg tablet take 1 tablet by mouth every night at bedtime 31 tablet 11 sodium chloride, bottle, (NS) 0.9 % irrigation CLEANSE RIGHT FOOT & APPLY MESALT DRESSING ONCE EVERY DAY AFTER SHOWERS (6AM) 500 mL 11 sterile water irrigation USE 30 CC'S TO IRRIGATE KLEIN CATHETER ONCE WEEKLY;USE 30 CC'S TO IRRIGATE KLEIN CATHETER NEEDED (IF NOT USING SOD CHLORIDE) 500 mL 11 TAB-A-XIOMARA MULTIVITAMIN W-IRON 18-400 mg-mcg tablet take 1 tablet by mouth once every day 31 tablet 11 TRIPLE ANTIBIOTIC 3.5mg-400 unit- 5,000 unit/gram ointment APPLY TOPICALLY TO SCRATCHES DAILY NEEDED (DATE, TIME, INITIAL, EFFECT) 28 g 11 zinc gluconate 50 mg tablet Take 1 tab by mouth once every day 31 tablet 11 No current facility-administered medications for this visit. Allergies: Patient has no known allergies. Code Status: FULL CODE The following portions of the patient's history were reviewed and updated as appropriate: allergies, current medications, past family history, past medical history, past social history, past surgical history, problem list, and medication reconciliation was completed including current medication and post discharge medication. Review of Systems Reason unable to perform ROS: RN completes ROS due to intellectual disability. Constitutional: Negative for chills, fatigue and fever. [...] hematuria, scrotal swelling and testicular pain. Musculoskeletal: Negative. Skin: Negative. Allergic/Immunologic: Negative. Neurological: Negative for seizures, syncope and headaches. Hematological: Does not bruise/bleed easily. Psychiatric/Behavioral: Negative. Objective BP 132/57 Pulse 82 Resp 16 Wt 73 kg (161 lb) SpO2 98% BMI 29.45 kg/m Physical Exam Vitals and nursing note [...] or rebound. Hernia: No hernia is present. Musculoskeletal: General: No tenderness. Normal range of [...] and Affect: Mood normal. Behavior: Behavior normal. Assessment/Plan Summary / Assessment / Plan 1. Benign essential HTN 2. Chronic constipation 3. Impulse control disorder 4. Intellectual disability 5. Mixed hyperlipidemia 1. HTN Continue lisinopril Continue amlodipine 2.5 mg oral daily. 2. Mixed hyperlipidemia Continue simvastatin 10 mg oral daily 3. Impulse control disorder OCD, impulse control Managed by Dr. Cali, psychiatry 4. Chronic constipation Caregiver reports no concerns. Continue lactulose, Miralax, Senokot, increased fiber diet. Influenza vaccine administered today Total time spent was 25 minutes: Preparing to see the patient (e.g., review of tests) Obtaining and/or reviewing separately obtained history Performing a medically appropriate examination and/or evaluation Counseling and educating the patient/family/caregiver There are no Patient Instructions on file for this visit. ELECTRONICALLY SIGNED BY: EVY Miner APRN-CNP 04/07/24 1249 documented in this encounter [facility] [employer] 04-03-2024 History of Present illness Narrative Was given by Chapin Cast at the [facility]. documented in this encounter [employer] 03-31-2024 History of Present illness Narrative Images from the original note were not included. Subjective Patient ID: Igor Pereira is a 64 y.o. male who presents for Wound Care (Igor Pereira is a 63 y.o. male who presents for wound care. ). HPI Follow-up assessment and wound care: Chronic, recalcitrant neuropathic wound; located dorsal lateral surface of the right midfoot. Accompanied by his caregiver, Evelyn. Status post SDRM 10th application (02/28/2024). Dressing remained in place again nearly 1 week; with default to [place] dressings. There remains minimal serous drainage on a daily basis. There has been no streaking. Medications Current Outpatient Medications: acetaminophen (Tylenol) 325 MG tablet, Take by mouth., Disp: , Rfl: amLODIPine (Norvasc) 2.5 MG tablet, Take 2.5 mg by mouth in the morning., Disp: , Rfl: ammonium lactate (Lac-Hydrin) 12 % lotion, Apply topically if needed for dry skin., Disp: , Rfl: bacitracin 500 UNIT/GM ointment, Apply topically 2 (two) times a day., Disp: , Rfl: carbamide peroxide (Debrox) 6.5 % otic solution, 5 drops in the morning and 5 drops before bedtime., Disp: , Rfl: citalopram (CeleXA) 20 MG tablet, Take by mouth., Disp: , Rfl: citalopram (CeleXA) 40 MG tablet, Take 20 mg by mouth., Disp: , Rfl: dextromethorphan 7.5 MG/5ML syrup, Take 7.5 mg by mouth every 6 (six) hours if needed for cough., Disp: , Rfl: dilTIAZem CD (Cardizem CD) 240 MG 24 hr capsule, Take 240 mg by mouth in the morning., Disp: , Rfl: divalproex (Depakote ER) 250 MG 24 hr tablet, Take 250 mg by mouth Daily Do not crush, chew, or split., Disp: , Rfl: ferrous sulfate 325 (65 Fe) MG tablet, Take 325 mg by mouth in the morning. Take with meals., Disp: , Rfl: guaiFENesin (Robitussin) 100 MG/5ML liquid, Take 200 mg by mouth 3 (three) times a day as needed for cough., Disp: , Rfl: hydrocortisone (Proctozone-HC) 2.5 % rectal cream, Insert into the rectum 2 (two) times a day, Disp: , Rfl: Lactobacillus (ACIDOPHILUS PO), Take by mouth., Disp: , Rfl: lactulose (Chronulac) 10 GM/15ML solution, Take 20 g by mouth in the morning and 20 g in the evening and 20 g before bedtime., Disp: , Rfl: LACTULOSE ENCEPHALOPATHY PO, Take by mouth., Disp: , Rfl: lisinopril 30 MG tablet, Take by mouth Daily, Disp: , Rfl: LORazepam (Ativan) 2 MG tablet, Take 2 mg by mouth., Disp: , Rfl: meloxicam (Mobic) 7.5 MG tablet, Take by mouth., Disp: , Rfl: Menthol-Zinc Oxide (Calmoseptine) 0.44-20.6 % ointment, Apply topically, Disp: , Rfl: miconazole (Micotin) 2 % powder, Apply topically if needed for itching., Disp: , Rfl: Mirabegron (MYRBETRIQ PO), Take by mouth., Disp: , Rfl: Multiple Vitamin (multivitamin) tablet, Take 1 tablet by mouth in the morning., Disp: , Rfl: Multiple Vitamins-Minerals (TAB-A-XIOMARA MAXIMUM PO), Take by mouth., Disp: , Rfl: omega-3 acid ethyl esters (Lovaza) 1 g capsule, Take 1 g by mouth in the morning and 1 g before bedtime., Disp: , Rfl: oxybutynin XL (Ditropan-XL) 15 MG 24 hr tablet, Take 15 mg by mouth in the morning. Do not crush, chew, or split. ., Disp: , Rfl: polyethylene glycol, PEG, 3350 (Glycolax) 17 GM/SCOOP powder, Take by mouth., Disp: , Rfl: psyllium (Metamucil) 28 % packet, Take 1 packet by mouth in the morning and 1 packet before bedtime. Mix and drink with at least 8 ounces of water or juice.., Disp: , Rfl: raNITIdine (Zantac) 150 MG tablet, Take 150 mg by mouth in the morning and 150 mg before bedtime., Disp: , Rfl: risperiDONE (RisperDAL) 2 MG tablet, Take 1.5 mg by mouth in the morning and 1.5 mg before bedtime., Disp: , Rfl: senna-docusate (Fatimah-Colace) 8.6-50 MG tablet, Take 1 tablet by mouth in the morning., Disp: , Rfl: simvastatin (Zocor) 10 MG tablet, Take 10 mg by mouth at bedtime., Disp: , Rfl: Skin Protectants, Misc. (DERMACERIN EX), Apply topically, Disp: , Rfl: sodium phosphate (Fleet) 3.5-9.5 GM/59ML enema, Insert into the rectum, Disp: , Rfl: Water For Irrigation, Sterile ([place] Sterile Water) solution, Irrigate with as directed, Disp: , Rfl: zinc gluconate 50 MG tablet, Take 50 mg by mouth Daily, Disp: , Rfl: Allergies Patient has no known allergies. Past Surgical History Past Surgical History: Procedure Laterality Date BACK SURGERY Family History Family History Problem Relation Name Age of Onset Mental illness Maternal Grandfather Objective General Examination: GENERAL EXAMINATION: Presents ambulatory with double-arm crutch. Bilateral AFOs in place, wearing new balance shoes. Accompanied by caregiver, Evelyn. Vascular: DORSALIS PEDIS PULSE: 1/4 bilateral. POSTERIOR TIBIAL PULSE: 1/4 bilateral. CAPILLARY REFILL: <3 seconds. TEMPERATURE GRADIENT: warm to slightly cool. EDEMA: unremarkable for ankle edema. Neurologic: DEEP TENDON REFLEXES: Patellar, Achilles, 0/5. MUSCLE POWER: diffuse flacid paralysis bilateral LE. SHARP SENSATION: absent. SEMMES-RAUL 5.07 MONOFILAMENT: Unable to localize all points plantarly. Dermatologic: SKIN FINDINGS: intact, skin turgor is otherwise good. NAIL PATHOLOGY: dystrophic , discolored. INTERDIGITAL MACERATION: Clean and dry. ULCER: Right foot: dorsolateral midfoot: [place] stage II neuropathic wound; location dorsal-lateral midfoot; appearance and shape of the wound has changed. Wound bed remains well hydrated, clean and predominantly granular wound bed; minimal serous drainage, without undermining, tunneling or probing. Marginal epithelial response is appreciated; particularly along the proximal wound margin. The wound margins are well adhered, slightly raised, fibrotic and keratotic; mildly macerated. There are no clinical signs of infection. Unremarkable for malodor or ischemic changes. Soft tissue envelope well perfused. Chronic, stable fluctuant swelling of the right midfoot. Post-debridement measurements: 03/31/2024: 1.7 x 0.9 x 0.1 cm Post-debridement measurements: 02/28/2024: 1.7 x 1.4 x 0.1 cm Post-debridement measurements: 02/07/2024: 1.8 x 1.7 x 0.1 cm Post-debridement measurements: 01/28/2024: 1.8 x 1.8 x 0.1 cm Post-debridement measurements: 01/13/2024: 1.9 x 1.8 x 0.2 cm Post-debridement measurements: 01/03/2024: 2.0 x 1.8 x 0.1 cm Post-debridement measurements: 12/27/2023: 2.1 x 1.5 x 0.1 cm Post-debridement measurements: 12/20/2023: 1.9 x 1.5 x 0.1 cm Post-debridement measurements: 12/13/2023: 2.1 x 1.6 x 0.1 cm Post-debridement measurements: 12/05/2023: 2.0 x 1.5 x 0.2 cm Post-debridement measurements: 11/26/2023: 2.5 x 1.6 x 0.2 cm Post-debridement measurements: 11/05/2023: 2.2 x 1.6 x 0.2 cm Post-debridement measurements: 10/15/2023: 2.5 x 1.5 x 0.2 cm Post-debridement measurements: 09/24/2023: 2.5 x 1.7 x 0.2 cm Post-debridement measurements: 09/03/2023: 2.5 x 1.8 x 0.2 cm Post-debridement measurements: 08/09/2023: 2.0 x 1.6 x 0.2 cm Post-debridement measurements: 07/19/2023: 2.0 x 1.7 x 0.2 cm Post-debridement measurements: 06/27/2023: 2.1 x 2.0 x 0.2 cm Post-debridement measurements: 06/05/2023: 2.2 x 1.5 x 0.2 cm Post-debridement measurements: 05/15/2023: 2.0 x 1.5 x 0.2 cm Post-debridement measurements: 04/24/2023: 2.0 x 1.5 x 0.2 cm Post-debridement measurements: 03/29/2023: 2.0 x 1.4 x 0.2 cm Post-debridement measurements: 02/27/2023: 2.0 x 1.1 x 0.2 cm Post-debridement measurements: 01/30/2023: 1.7 x 1.0 x 0.2 cm Post-debridement measurements: 01/03/2023: 1.8 x 1.7 x 0.2 cm Post-debridement measurements: 12/19/2022: 1.8 x 1.0 x 0.2 cm Post-debridement measurements: 11/22/2022: 2.0 x 1.0 x 0.2 cm Post-debridement measurements: 10/30/2022: 1.6 x 1.0 x 0.2 cm Post-debridement measurements: 10/03/2022: 1.6 x 1.0 x 0.2 cm Post-debridement measurements: 09/12/2022: 1.7 x 1.1 x 0.2 cm Post-debridement measurements: 08/27/2022: 1.7 x 1.1 x 0.2 cm Orthopedic: DEFORMITIES: severe gastrocsoleus equinus bilateral. multiple digital deformities. Flaccid PVP foot structure. 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 Radiology: Assessment/Plan 1. Sal[place] stage II neuropathic wound right midfoot; chronic, stable wound. Previous wounds remain well-healed. 2. 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 LE neuropathy/LOPS 4. Acquired bilateral foot and LE deformities 5. Acquired hyperkeratotic lesions navicular tuberosity bilateral. 6. Status post Epifix x 10; (#10 applied 03/14/2022) Impression: Clean stable recalcitrant wound; without progression towards secondary intention healing. Plan: Clinical Notes: review of clinical findings, high risk nature of the condition and treatment rationale. 1. Sharp debridement and wound preparation followed by Supra SDRM biodegradable matrix application #11 (donated product/assistance program). 2. Dressing intact, clean and dry x 7 days; with instructions to resume or default to Mefix dressings daily as indicated. 3. Offloading measures: Right AFO; compliance remains a challenging problem. Wheelchair as necessary. Procedure: Right foot: Aseptic technique: #15 scalpel: Sharp, active, selective full-thickness excisional debridement; to the level of subcutaneous granular wound bed; excising devitalized, non-viable, dystrophic, fibrous and hyperkeratotic tissue, particularly of the wound perimeter, reducing direct and indirect pressure; reducing wound contamination and bioburden. Sharp curettage of wound bed stimulating granular bleeding. Saline cleansing. Pressure hemostasis. Supra SDRM biodegradable matrix wound dressing applied in stacked technique; Rylon non-adherent dressing; secured with Steri-Strips in a window frame technique; followed by a dry sterile dressing; secured with Mefix under mild Coban compression. This note was created with the assistance of a speech recognition program. While intending to generate a timely document that accurately reflects the content of the visit, no guarantee can be provided that every grammatical or spelling mistake has been or will be identified or corrected. Thank you for your understanding. Maria Luisa Wagner DPM documented in this encounter [facility] 03-31-2024 Instructions Maria Luisa Wagner DPM - 03/31/2024 9:30 AM EST As noted documented in this encounter [facility] 03-25-2024 History of Present illness Narrative Patient presents for Suprapubic catheter change with # 24 fr Sp catheter attached to leg bag. Patient prepped and draped and Sp Site cleansed with betadine swabs. # 24 fr Sp klein safely removed and replaced with #24 fr Sp klein catheter 10 cc's to placement balloon. 24 fr Sp klein catheter then attached to drainage bag. night bag given. Tolerated procedure well. Pt. Will return in 4 weeks for a regular monthly catheter change. Hope Gonzalez LPN Ordering Doctor: MD Dania Supervising doctor: Dr Obie MD documented in this encounter [facility] 03-10-2024 History of Present illness Narrative Pt. Arrives at this office for what was thought to be needed a catheter change d/t urine leaking out of the penis. Pt. Was accompanied by his Nurse, Kathy puckett. She states that on , after flushing the catheter, it started to drain out of the catheter, and was no longer draining out of the penis into the brief. They decided to still bring him into his appt this morning just to have it looked at. This nurse prepped the Pt. Onto the treatment bed. The stoma is clean, and dry. No signs of redness, no drainage or odor noted. The bag was disconnected from the catheter, and the catheter was flushed to ensure patency. Catheter is patent and draining. At this time, this nurse did not see any urine in the brief, nor any redness, drainage or discharge from the penis. This nurse did NOT need to change the catheter today. Pt.'s regular monthly S/P tube was scheduled for 2 weeks from today which is a total of 4 weeks from the original cathter change for the month. They will call this office if they have any further issues. Tolerated well with no difficulties. Hope Gonzalez LPN Ordering Physician: MD Dania Supervising Physician: MD Dania documented in this encounter [facility] 02-28-2024 Miscellaneous Notes Kathy from [facility] calls to let you know pt just had his sp tube changed on 02/25/2024, but he has more urine in his briefs than he does in the sp tube bag. Have them flush the sp tube with 10-20 cc of normal saline Kathy was notified. documented in this encounter [facility] 02-28-2024 Telephone encounter Note Kathy from [facility] calls to let you know pt just had his sp tube changed on 02/25/2024, but he has more urine in his briefs than he does in the sp tube bag. [facility] 02-28-2024 Telephone encounter Note Have them flush the sp tube with 10-20 cc of normal saline [facility] 02-28-2024 Telephone encounter Note Kathy was notified. [facility] 02-28-2024 History of Present illness Narrative Images from the original note were not included. Subjective Patient ID: Igor Pereira is a 63 y.o. male who presents for No chief complaint on file.. HPI Follow-up assessment and wound care: Chronic, recalcitrant neuropathic wound; located dorsal lateral surface of the right midfoot. Accompanied by his caregiver, Evelyn. Status post [facility] 9th application (02/07/2024). Dressing remained in place about 1 week; with default to Mesalt dressings. There remains minimal serous drainage on a daily basis. There has been no streaking. Medications Current Outpatient Medications: acetaminophen (Tylenol) 325 MG tablet, Take by mouth., Disp: , Rfl: amLODIPine (Norvasc) 2.5 MG tablet, Take 2.5 mg by mouth in the morning., Disp: , Rfl: ammonium lactate (Lac-Hydrin) 12 % lotion, Apply topically if needed for dry skin., Disp: , Rfl: bacitracin 500 UNIT/GM ointment, Apply topically 2 (two) times a day., Disp: , Rfl: carbamide peroxide (Debrox) 6.5 % otic solution, 5 drops in the morning and 5 drops before bedtime., Disp: , Rfl: citalopram (CeleXA) 20 MG tablet, Take by mouth., Disp: , Rfl: citalopram (CeleXA) 40 MG tablet, Take 20 mg by mouth., Disp: , Rfl: dextromethorphan 7.5 MG/5ML syrup, Take 7.5 mg by mouth every 6 (six) hours if needed for cough., Disp: , Rfl: dilTIAZem CD (Cardizem CD) 240 MG 24 hr capsule, Take 240 mg by mouth in the morning., Disp: , Rfl: divalproex (Depakote ER) 250 MG 24 hr tablet, Take 250 mg by mouth Daily Do not crush, chew, or split., Disp: , Rfl: ferrous sulfate 325 (65 Fe) MG tablet, Take 325 mg by mouth in the morning. Take with meals., Disp: , Rfl: guaiFENesin (Robitussin) 100 MG/5ML liquid, Take 200 mg by mouth 3 (three) times a day as needed for cough., Disp: , Rfl: hydrocortisone (Proctozone-HC) 2.5 % rectal cream, Insert into the rectum 2 (two) times a day, Disp: , Rfl: Lactobacillus (ACIDOPHILUS PO), Take by mouth., Disp: , Rfl: lactulose (Chronulac) 10 GM/15ML solution, Take 20 g by mouth in the morning and 20 g in the evening and 20 g before bedtime., Disp: , Rfl: LACTULOSE ENCEPHALOPATHY PO, Take by mouth., Disp: , Rfl: lisinopril 30 MG tablet, Take by mouth Daily, Disp: , Rfl: LORazepam (Ativan) 2 MG tablet, Take 2 mg by mouth., Disp: , Rfl: meloxicam (Mobic) 7.5 MG tablet, Take by mouth., Disp: , Rfl: Menthol-Zinc Oxide (Calmoseptine) 0.44-20.6 % ointment, Apply topically, Disp: , Rfl: miconazole (Micotin) 2 % powder, Apply topically if needed for itching., Disp: , Rfl: Mirabegron (MYRBETRIQ PO), Take by mouth., Disp: , Rfl: Multiple Vitamin (multivitamin) tablet, Take 1 tablet by mouth in the morning., Disp: , Rfl: Multiple Vitamins-Minerals (TAB-A-XIOMARA MAXIMUM PO), Take by mouth., Disp: , Rfl: omega-3 acid ethyl esters (Lovaza) 1 g capsule, Take 1 g by mouth in the morning and 1 g before bedtime., Disp: , Rfl: oxybutynin XL (Ditropan-XL) 15 MG 24 hr tablet, Take 15 mg by mouth in the morning. Do not crush, chew, or split. ., Disp: , Rfl: polyethylene glycol, PEG, 3350 (Glycolax) 17 GM/SCOOP powder, Take by mouth., Disp: , Rfl: psyllium (Metamucil) 28 % packet, Take 1 packet by mouth in the morning and 1 packet before bedtime. Mix and drink with at least 8 ounces of water or juice.., Disp: , Rfl: raNITIdine (Zantac) 150 MG tablet, Take 150 mg by mouth in the morning and 150 mg before bedtime., Disp: , Rfl: risperiDONE (RisperDAL) 2 MG tablet, Take 1.5 mg by mouth in the morning and 1.5 mg before bedtime., Disp: , Rfl: senna-docusate (Aftimah-Colace) 8.6-50 MG tablet, Take 1 tablet by mouth in the morning., Disp: , Rfl: simvastatin (Zocor) 10 MG tablet, Take 10 mg by mouth at bedtime., Disp: , Rfl: Skin Protectants, Misc. (DERMACERIN EX), Apply topically, Disp: , Rfl: sodium phosphate (Fleet) 3.5-9.5 GM/59ML enema, Insert into the rectum, Disp: , Rfl: Water For Irrigation, Sterile ([place] Sterile Water) solution, Irrigate with as directed, Disp: , Rfl: zinc gluconate 50 MG tablet, Take 50 mg by mouth Daily, Disp: , Rfl: Allergies Patient has no known allergies. Past Surgical History Past Surgical History: Procedure Laterality Date BACK SURGERY Family History Family History Problem Relation Name Age of Onset Mental illness Maternal Grandfather Objective General Examination: GENERAL EXAMINATION: Presents ambulatory with double-arm crutch. Bilateral AFOs in place, wearing new balance shoes. Accompanied by caregiver, Evelyn. Vascular: DORSALIS PEDIS PULSE: 1/4 bilateral. POSTERIOR TIBIAL PULSE: 1/4 bilateral. CAPILLARY REFILL: <3 seconds. TEMPERATURE GRADIENT: warm to slightly cool. EDEMA: unremarkable for ankle edema. Neurologic: DEEP TENDON REFLEXES: Patellar, Achilles, 0/5. MUSCLE POWER: diffuse flacid paralysis bilateral LE. SHARP SENSATION: absent. SEMMES-RAUL 5.07 MONOFILAMENT: Unable to localize all points plantarly. Dermatologic: SKIN FINDINGS: intact, skin turgor is otherwise good. NAIL PATHOLOGY: dystrophic , discolored. INTERDIGITAL MACERATION: Clean and dry. ULCER: Right foot: dorsolateral midfoot: [place] stage II neuropathic wound; location dorsal-lateral midfoot; appearance remains stable. Wound bed remains well hydrated, clean and predominantly granular wound bed; minimal serous drainage, without undermining, tunneling or probing. Marginal epithelial response is appreciated. The wound margins are well adhered, slightly raised, fibrotic and keratotic; mildly macerated. There are no clinical signs of infection. Unremarkable for malodor or ischemic changes. Soft tissue envelope well perfused. Chronic, stable fluctuant swelling of the right midfoot. Post-debridement measurements: 02/28/2024: 1.7 x 1.4 x 0.1 cm Post-debridement measurements: 02/07/2024: 1.8 x 1.7 x 0.1 cm Post-debridement measurements: 01/28/2024: 1.8 x 1.8 x 0.1 cm Post-debridement measurements: 01/13/2024: 1.9 x 1.8 x 0.2 cm Post-debridement measurements: 01/03/2024: 2.0 x 1.8 x 0.1 cm Post-debridement measurements: 12/27/2023: 2.1 x 1.5 x 0.1 cm Post-debridement measurements: 12/20/2023: 1.9 x 1.5 x 0.1 cm Post-debridement measurements: 12/13/2023: 2.1 x 1.6 x 0.1 cm Post-debridement measurements: 12/05/2023: 2.0 x 1.5 x 0.2 cm Post-debridement measurements: 11/26/2023: 2.5 x 1.6 x 0.2 cm Post-debridement measurements: 11/05/2023: 2.2 x 1.6 x 0.2 cm Post-debridement measurements: 10/15/2023: 2.5 x 1.5 x 0.2 cm Post-debridement measurements: 09/24/2023: 2.5 x 1.7 x 0.2 cm Post-debridement measurements: 09/03/2023: 2.5 x 1.8 x 0.2 cm Post-debridement measurements: 08/09/2023: 2.0 x 1.6 x 0.2 cm Post-debridement measurements: 07/19/2023: 2.0 x 1.7 x 0.2 cm Post-debridement measurements: 06/27/2023: 2.1 x 2.0 x 0.2 cm Post-debridement measurements: 06/05/2023: 2.2 x 1.5 x 0.2 cm Post-debridement measurements: 05/15/2023: 2.0 x 1.5 x 0.2 cm Post-debridement measurements: 04/24/2023: 2.0 x 1.5 x 0.2 cm Post-debridement measurements: 03/29/2023: 2.0 x 1.4 x 0.2 cm Post-debridement measurements: 02/27/2023: 2.0 x 1.1 x 0.2 cm Post-debridement measurements: 01/30/2023: 1.7 x 1.0 x 0.2 cm Post-debridement measurements: 01/03/2023: 1.8 x 1.7 x 0.2 cm Post-debridement measurements: 12/19/2022: 1.8 x 1.0 x 0.2 cm Post-debridement measurements: 11/22/2022: 2.0 x 1.0 x 0.2 cm Post-debridement measurements: 10/30/2022: 1.6 x 1.0 x 0.2 cm Post-debridement measurements: 10/03/2022: 1.6 x 1.0 x 0.2 cm Post-debridement measurements: 09/12/2022: 1.7 x 1.1 x 0.2 cm Post-debridement measurements: 08/27/2022: 1.7 x 1.1 x 0.2 cm Orthopedic: DEFORMITIES: severe gastrocsoleus equinus bilateral. multiple digital deformities. Flaccid PVP foot structure. 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 Radiology: Assessment/Plan 1. [place] stage II neuropathic wound right midfoot; chronic, stable wound. Previous wounds remain well-healed. 2. 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 LE neuropathy/LOPS 4. Acquired bilateral foot and LE deformities 5. Acquired hyperkeratotic lesions navicular tuberosity bilateral. 6. Status post Epifix x 10; (#10 applied 03/14/2022) Impression: Clean stable recalcitrant wound; without progression towards secondary intention healing. Plan: Clinical Notes: review of clinical findings, high risk nature of the condition and treatment rationale. 1. Sharp debridement and wound preparation followed by Supra SDRM biodegradable matrix application #10 (donated product/assistance program). 2. Dressing intact, clean and dry x 7 days; with instructions to resume or default to Mefix dressings daily as indicated. 3. Offloading measures: Right AFO; compliance remains a challenging problem. Wheelchair as necessary. Procedure: Right foot: Aseptic technique: #15 scalpel: Sharp, active, selective full-thickness excisional debridement; to the level of subcutaneous granular wound bed; excising devitalized, non-viable, dystrophic, fibrous and hyperkeratotic tissue, particularly of the wound perimeter, reducing direct and indirect pressure; reducing wound contamination and bioburden. Sharp curettage of wound bed stimulating granular bleeding. Saline cleansing. Pressure hemostasis. Supra SDRM biodegradable matrix wound dressing applied in stacked technique; Rylon non-adherent dressing; secured with Steri-Strips in a window frame technique; followed by a dry sterile dressing; secured with Mefix under mild Coban compression. This note was created with the assistance of a speech recognition program. While intending to generate a timely document that accurately reflects the content of the visit, no guarantee can be provided that every grammatical or spelling mistake has been or will be identified or corrected. Thank you for your understanding. Maria Luisa Wagner DPM documented in this encounter [facility] 02-28-2024 Instructions Maria Luisa Wagner DPM - 02/28/2024 10:30 AM EDT Instructions as noted documented in this encounter [facility] 02-25-2024 History of Present illness Narrative Patient presents for Suprapubic catheter change accompanied by caregiver with # 24 fr Sp catheter attached to leg bag. While helping Pt. Unhook his brief, this nurse did notice that there was urine in the brief and did see urine coming out of the tip of the penis. Pt.'s Caregiver stated that she has noticed a lot of drainage coming from the penis into the brief, and it happens closer to the time he needs his S/P tube changed. This nurse informed her that hopefully this should get better with his new catheter exchange, but if it doesn't, then to call the office and we can contact MD Dania to see what - if anything could be done to prevent this from happening. Caregiver stated understanding, this was also written on Pt. Paper work. Patient prepped and draped and Sp Site cleansed with betadine swabs. # 24 fr Sp klein safely removed, catheter tip in tact. Some white hard sediment on the tip of the catheter. Catheter replaced with # 24 fr Sp klein catheter 10 cc's to placement balloon. Sp klien catheter then attached to drainage bag. Pt. Tolerated the procedure well. Hope Gonzalez LPN Ordering Doctor: MD Dania Supervising doctor: MD Dania documented in this encounter [facility] 02-07-2024 History of Present illness Narrative Images from the original note were not included. Subjective Patient ID: Igor Pereira is a 63 y.o. male who presents for Foot Wound Check (Pt presents today for 2 week wound check. detention is using the mesalt dressings. ). HPI Follow-up assessment and wound care: Chronic, recalcitrant neuropathic wound; located dorsal lateral surface of the right midfoot. Accompanied by his caregiver, Alice. Status post SDRM 8th application (01/28/2024). Dressing remained in place until several days ago; with default to Mesalt dressings. Care staff encountered Sai earlier today with braces on the incorrect lower extremity. Medications Current Outpatient Medications: acetaminophen (Tylenol) 325 MG tablet, Take by mouth., Disp: , Rfl: amLODIPine (Norvasc) 2.5 MG tablet, Take 2.5 mg by mouth in the morning., Disp: , Rfl: ammonium lactate (Lac-Hydrin) 12 % lotion, Apply topically if needed for dry skin., Disp: , Rfl: bacitracin 500 UNIT/GM ointment, Apply topically 2 (two) times a day., Disp: , Rfl: carbamide peroxide (Debrox) 6.5 % otic solution, 5 drops in the morning and 5 drops before bedtime., Disp: , Rfl: citalopram (CeleXA) 20 MG tablet, Take by mouth., Disp: , Rfl: citalopram (CeleXA) 40 MG tablet, Take 20 mg by mouth., Disp: , Rfl: dextromethorphan 7.5 MG/5ML syrup, Take 7.5 mg by mouth every 6 (six) hours if needed for cough., Disp: , Rfl: dilTIAZem CD (Cardizem CD) 240 MG 24 hr capsule, Take 240 mg by mouth in the morning., Disp: , Rfl: divalproex (Depakote ER) 250 MG 24 hr tablet, Take 250 mg by mouth Daily Do not crush, chew, or split., Disp: , Rfl: ferrous sulfate 325 (65 Fe) MG tablet, Take 325 mg by mouth in the morning. Take with meals., Disp: , Rfl: guaiFENesin (Robitussin) 100 MG/5ML liquid, Take 200 mg by mouth 3 (three) times a day as needed for cough., Disp: , Rfl: hydrocortisone (Proctozone-HC) 2.5 % rectal cream, Insert into the rectum 2 (two) times a day, Disp: , Rfl: Lactobacillus (ACIDOPHILUS PO), Take by mouth., Disp: , Rfl: lactulose (Chronulac) 10 GM/15ML solution, Take 20 g by mouth in the morning and 20 g in the evening and 20 g before bedtime., Disp: , Rfl: LACTULOSE ENCEPHALOPATHY PO, Take by mouth., Disp: , Rfl: lisinopril 30 MG tablet, Take by mouth Daily, Disp: , Rfl: LORazepam (Ativan) 2 MG tablet, Take 2 mg by mouth., Disp: , Rfl: meloxicam (Mobic) 7.5 MG tablet, Take by mouth., Disp: , Rfl: Menthol-Zinc Oxide (Calmoseptine) 0.44-20.6 % ointment, Apply topically, Disp: , Rfl: miconazole (Micotin) 2 % powder, Apply topically if needed for itching., Disp: , Rfl: Mirabegron (MYRBETRIQ PO), Take by mouth., Disp: , Rfl: Multiple Vitamin (multivitamin) tablet, Take 1 tablet by mouth in the morning., Disp: , Rfl: Multiple Vitamins-Minerals (TAB-A-XIOMARA MAXIMUM PO), Take by mouth., Disp: , Rfl: omega-3 acid ethyl esters (Lovaza) 1 g capsule, Take 1 g by mouth in the morning and 1 g before bedtime., Disp: , Rfl: oxybutynin XL (Ditropan-XL) 15 MG 24 hr tablet, Take 15 mg by mouth in the morning. Do not crush, chew, or split. ., Disp: , Rfl: polyethylene glycol, PEG, 3350 (Glycolax) 17 GM/SCOOP powder, Take by mouth., Disp: , Rfl: psyllium (Metamucil) 28 % packet, Take 1 packet by mouth in the morning and 1 packet before bedtime. Mix and drink with at least 8 ounces of water or juice.., Disp: , Rfl: raNITIdine (Zantac) 150 MG tablet, Take 150 mg by mouth in the morning and 150 mg before bedtime., Disp: , Rfl: risperiDONE (RisperDAL) 2 MG tablet, Take 1.5 mg by mouth in the morning and 1.5 mg before bedtime., Disp: , Rfl: senna-docusate (Fatimah-Colace) 8.6-50 MG tablet, Take 1 tablet by mouth in the morning., Disp: , Rfl: simvastatin (Zocor) 10 MG tablet, Take 10 mg by mouth at bedtime., Disp: , Rfl: Skin Protectants, Misc. (DERMACERIN EX), Apply topically, Disp: , Rfl: sodium phosphate (Fleet) 3.5-9.5 GM/59ML enema, Insert into the rectum, Disp: , Rfl: Water For Irrigation, Sterile ([place] Sterile Water) solution, Irrigate with as directed, Disp: , Rfl: zinc gluconate 50 MG tablet, Take 50 mg by mouth Daily, Disp: , Rfl: Allergies Patient has no known allergies. Past Surgical History Past Surgical History: Procedure Laterality Date BACK SURGERY Family History Family History Problem Relation Name Age of Onset Mental illness Maternal Grandfather Objective General Examination: GENERAL EXAMINATION: Presents ambulatory with double-arm crutch. Bilateral AFOs in place, wearing new balance shoes. Accompanied by caregiver, Evelyn. Vascular: DORSALIS PEDIS PULSE: 1/4 bilateral. POSTERIOR TIBIAL PULSE: 1/4 bilateral. CAPILLARY REFILL: <3 seconds. TEMPERATURE GRADIENT: warm to slightly cool. EDEMA: unremarkable for ankle edema. Neurologic: DEEP TENDON REFLEXES: Patellar, Achilles, 0/5. MUSCLE POWER: diffuse flacid paralysis bilateral LE. SHARP SENSATION: absent. SEMMES-RAUL 5.07 MONOFILAMENT: Unable to localize all points plantarly. Dermatologic: SKIN FINDINGS: intact, skin turgor is otherwise good. NAIL PATHOLOGY: dystrophic , discolored. INTERDIGITAL MACERATION: Clean and dry. ULCER: Right foot: dorsolateral midfoot: [place] stage II neuropathic wound; location dorsal-lateral midfoot; appearance remains stable. Wound bed remains moist, clean, variably fibrous and somewhat hypergranular in several areas; minimal serous drainage, without undermining, tunneling or probing. The wound margins are well adhered, slightly raised, fibrotic and keratotic; mildly macerated. There are no clinical signs of infection. Unremarkable for malodor or ischemic changes. Soft tissue envelope well perfused. Chronic, stable fluctuant swelling of the right midfoot. Post-debridement measurements: 02/07/2024: 1.8 x 1.7 x 0.1 cm Post-debridement measurements: 01/28/2024: 1.8 x 1.8 x 0.1 cm Post-debridement measurements: 01/13/2024: 1.9 x 1.8 x 0.2 cm Post-debridement measurements: 01/03/2024: 2.0 x 1.8 x 0.1 cm Post-debridement measurements: 12/27/2023: 2.1 x 1.5 x 0.1 cm Post-debridement measurements: 12/20/2023: 1.9 x 1.5 x 0.1 cm Post-debridement measurements: 12/13/2023: 2.1 x 1.6 x 0.1 cm Post-debridement measurements: 12/05/2023: 2.0 x 1.5 x 0.2 cm Post-debridement measurements: 11/26/2023: 2.5 x 1.6 x 0.2 cm Post-debridement measurements: 11/05/2023: 2.2 x 1.6 x 0.2 cm Post-debridement measurements: 10/15/2023: 2.5 x 1.5 x 0.2 cm Post-debridement measurements: 09/24/2023: 2.5 x 1.7 x 0.2 cm Post-debridement measurements: 09/03/2023: 2.5 x 1.8 x 0.2 cm Post-debridement measurements: 08/09/2023: 2.0 x 1.6 x 0.2 cm Post-debridement measurements: 07/19/2023: 2.0 x 1.7 x 0.2 cm Post-debridement measurements: 06/27/2023: 2.1 x 2.0 x 0.2 cm Post-debridement measurements: 06/05/2023: 2.2 x 1.5 x 0.2 cm Post-debridement measurements: 05/15/2023: 2.0 x 1.5 x 0.2 cm Post-debridement measurements: 04/24/2023: 2.0 x 1.5 x 0.2 cm Post-debridement measurements: 03/29/2023: 2.0 x 1.4 x 0.2 cm Post-debridement measurements: 02/27/2023: 2.0 x 1.1 x 0.2 cm Post-debridement measurements: 01/30/2023: 1.7 x 1.0 x 0.2 cm Post-debridement measurements: 01/03/2023: 1.8 x 1.7 x 0.2 cm Post-debridement measurements: 12/19/2022: 1.8 x 1.0 x 0.2 cm Post-debridement measurements: 11/22/2022: 2.0 x 1.0 x 0.2 cm Post-debridement measurements: 10/30/2022: 1.6 x 1.0 x 0.2 cm Post-debridement measurements: 10/03/2022: 1.6 x 1.0 x 0.2 cm Post-debridement measurements: 09/12/2022: 1.7 x 1.1 x 0.2 cm Post-debridement measurements: 08/27/2022: 1.7 x 1.1 x 0.2 cm Orthopedic: DEFORMITIES: severe gastrocsoleus equinus bilateral. multiple digital deformities. Flaccid PVP foot structure. 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 Radiology: Assessment/Plan 1. [place] stage II neuropathic wound right midfoot; chronic, stable wound. Previous wounds remain well-healed. 2. 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 LE neuropathy/LOPS 4. Acquired bilateral foot and LE deformities 5. Acquired hyperkeratotic lesions navicular tuberosity bilateral. 6. Status post Epifix x 10; (#10 applied 03/14/2022) Impression: Clean stable recalcitrant wound; without progression towards secondary intention healing. Plan: Clinical Notes: review of clinical findings, high risk nature of the condition and treatment rationale. 1. Sharp debridement and wound preparation followed by Supra SDRM biodegradable matrix application #9 (donated product/assistance program). 2. Dressing intact, clean and dry x 7 days; with instructions to resume or default to Mefix dressings daily as indicated. 3. Offloading measures: Right AFO; compliance remains a challenging problem. Wheelchair as necessary. Procedure: Right foot: Aseptic technique: #15 scalpel: Sharp, active, selective full-thickness excisional debridement; to the level of subcutaneous granular wound bed; excising devitalized, non-viable, dystrophic, fibrous and hyperkeratotic tissue, particularly of the wound perimeter, reducing direct and indirect pressure; reducing wound contamination and bioburden. Sharp curettage of wound bed stimulating granular bleeding. Saline cleansing. Pressure hemostasis. Supra SDRM biodegradable matrix wound dressing applied in stacked technique; Rylon non-adherent dressing; secured with Steri-Strips in a window frame technique; followed by a dry sterile dressing; secured with Mefix under mild Coban compression. This note was created with the assistance of a speech recognition program. While intending to generate a timely document that accurately reflects the content of the visit, no guarantee can be provided that every grammatical or spelling mistake has been or will be identified or corrected. Thank you for your understanding. Maria Luisa Wagner DPM documented in this encounter [facility] 02-07-2024 Instructions Maria Luisa Wagner DPM - 02/07/2024 10:30 AM EDT As noted documented in this encounter [facility] 01-28-2024 History of Present illness Narrative Images from the original note were not included. Subjective Patient ID: Igor Pereira is a 63 y.o. male who presents for Wound Care (Igor Pereira is a 63 y.o. male who presents for Foot Wound Check. Pt presents today with his caregiver lAice for a wound check. Alice relates she is not sure how long the dressing stayed on and reports patients BL braces and shoes were on the wrong feet,when picked up today. ). HPI Follow-up assessment and wound care: Chronic, recalcitrant neuropathic wound; located dorsal lateral surface of the right midfoot. Accompanied by his caregiver, Alice. Status post [facility] 7th application (01/13/2024). Dressing remained in place until several days ago; with default to Mesalt dressings. Care staff encountered Sai earlier today with braces on the incorrect lower extremity. Medications Current Outpatient Medications: acetaminophen (Tylenol) 325 MG tablet, Take by mouth., Disp: , Rfl: amLODIPine (Norvasc) 2.5 MG tablet, Take 2.5 mg by mouth in the morning., Disp: , Rfl: ammonium lactate (Lac-Hydrin) 12 % lotion, Apply topically if needed for dry skin., Disp: , Rfl: bacitracin 500 UNIT/GM ointment, Apply topically 2 (two) times a day., Disp: , Rfl: carbamide peroxide (Debrox) 6.5 % otic solution, 5 drops in the morning and 5 drops before bedtime., Disp: , Rfl: citalopram (CeleXA) 20 MG tablet, Take by mouth., Disp: , Rfl: citalopram (CeleXA) 40 MG tablet, Take 20 mg by mouth., Disp: , Rfl: dextromethorphan 7.5 MG/5ML syrup, Take 7.5 mg by mouth every 6 (six) hours if needed for cough., Disp: , Rfl: dilTIAZem CD (Cardizem CD) 240 MG 24 hr capsule, Take 240 mg by mouth in the morning., Disp: , Rfl: divalproex (Depakote ER) 250 MG 24 hr tablet, Take 250 mg by mouth Daily Do not crush, chew, or split., Disp: , Rfl: ferrous sulfate 325 (65 Fe) MG tablet, Take 325 mg by mouth in the morning. Take with meals., Disp: , Rfl: guaiFENesin (Robitussin) 100 MG/5ML liquid, Take 200 mg by mouth 3 (three) times a day as needed for cough., Disp: , Rfl: hydrocortisone (Proctozone-HC) 2.5 % rectal cream, Insert into the rectum 2 (two) times a day, Disp: , Rfl: Lactobacillus (ACIDOPHILUS PO), Take by mouth., Disp: , Rfl: lactulose (Chronulac) 10 GM/15ML solution, Take 20 g by mouth in the morning and 20 g in the evening and 20 g before bedtime., Disp: , Rfl: LACTULOSE ENCEPHALOPATHY PO, Take by mouth., Disp: , Rfl: lisinopril 30 MG tablet, Take by mouth Daily, Disp: , Rfl: LORazepam (Ativan) 2 MG tablet, Take 2 mg by mouth., Disp: , Rfl: meloxicam (Mobic) 7.5 MG tablet, Take by mouth., Disp: , Rfl: Menthol-Zinc Oxide (Calmoseptine) 0.44-20.6 % ointment, Apply topically, Disp: , Rfl: miconazole (Micotin) 2 % powder, Apply topically if needed for itching., Disp: , Rfl: Mirabegron (MYRBETRIQ PO), Take by mouth., Disp: , Rfl: Multiple Vitamin (multivitamin) tablet, Take 1 tablet by mouth in the morning., Disp: , Rfl: Multiple Vitamins-Minerals (TAB-A-XIOMARA MAXIMUM PO), Take by mouth., Disp: , Rfl: omega-3 acid ethyl esters (Lovaza) 1 g capsule, Take 1 g by mouth in the morning and 1 g before bedtime., Disp: , Rfl: oxybutynin XL (Ditropan-XL) 15 MG 24 hr tablet, Take 15 mg by mouth in the morning. Do not crush, chew, or split. ., Disp: , Rfl: polyethylene glycol, PEG, 3350 (Glycolax) 17 GM/SCOOP powder, Take by mouth., Disp: , Rfl: psyllium (Metamucil) 28 % packet, Take 1 packet by mouth in the morning and 1 packet before bedtime. Mix and drink with at least 8 ounces of water or juice.., Disp: , Rfl: raNITIdine (Zantac) 150 MG tablet, Take 150 mg by mouth in the morning and 150 mg before bedtime., Disp: , Rfl: risperiDONE (RisperDAL) 2 MG tablet, Take 1.5 mg by mouth in the morning and 1.5 mg before bedtime., Disp: , Rfl: senna-docusate (Fatimah-Colace) 8.6-50 MG tablet, Take 1 tablet by mouth in the morning., Disp: , Rfl: simvastatin (Zocor) 10 MG tablet, Take 10 mg by mouth at bedtime., Disp: , Rfl: Skin Protectants, Misc. (DERMACERIN EX), Apply topically, Disp: , Rfl: sodium phosphate (Fleet) 3.5-9.5 GM/59ML enema, Insert into the rectum, Disp: , Rfl: Water For Irrigation, Sterile ([place] Sterile Water) solution, Irrigate with as directed, Disp: , Rfl: zinc gluconate 50 MG tablet, Take 50 mg by mouth Daily, Disp: , Rfl: Allergies Patient has no known allergies. Past Surgical History Past Surgical History: Procedure Laterality Date BACK SURGERY Family History Family History Problem Relation Name Age of Onset Mental illness Maternal Grandfather Objective General Examination: GENERAL EXAMINATION: Presents ambulatory with double-arm crutch. Bilateral AFOs in place, wearing new balance shoes. Accompanied by caregiver, Alice. Vascular: DORSALIS PEDIS PULSE: 1/4 bilateral. POSTERIOR TIBIAL PULSE: 1/4 bilateral. CAPILLARY REFILL: <3 seconds. TEMPERATURE GRADIENT: warm to slightly cool. EDEMA: unremarkable for ankle edema. Neurologic: DEEP TENDON REFLEXES: Patellar, Achilles, 0/5. MUSCLE POWER: diffuse flacid paralysis bilateral LE. SHARP SENSATION: absent. SEMMES-RAUL 5.07 MONOFILAMENT: Unable to localize all points plantarly. Dermatologic: SKIN FINDINGS: intact, skin turgor is otherwise good. NAIL PATHOLOGY: dystrophic , discolored. INTERDIGITAL MACERATION: Clean and dry. ULCER: Right foot: dorsolateral midfoot: [place] stage II neuropathic wound; location dorsal-lateral midfoot; appearance remains stable. Wound bed remains moist, clean, variably fibrous and somewhat hypergranular in several areas; minimal serous drainage, without undermining, tunneling or probing. The wound margins are well adhered, slightly raised, fibrotic and keratotic; mildly macerated. There are no clinical signs of infection. Unremarkable for malodor or ischemic changes. Soft tissue envelope well perfused. Chronic, stable fluctuant swelling of the right midfoot. Post-debridement measurements: 01/28/2024: 1.8 x 1.8 x 0.1 cm Post-debridement measurements: 01/13/2024: 1.9 x 1.8 x 0.2 cm Post-debridement measurements: 01/03/2024: 2.0 x 1.8 x 0.1 cm Post-debridement measurements: 12/27/2023: 2.1 x 1.5 x 0.1 cm Post-debridement measurements: 12/20/2023: 1.9 x 1.5 x 0.1 cm Post-debridement measurements: 12/13/2023: 2.1 x 1.6 x 0.1 cm Post-debridement measurements: 12/05/2023: 2.0 x 1.5 x 0.2 cm Post-debridement measurements: 11/26/2023: 2.5 x 1.6 x 0.2 cm Post-debridement measurements: 11/05/2023: 2.2 x 1.6 x 0.2 cm Post-debridement measurements: 10/15/2023: 2.5 x 1.5 x 0.2 cm Post-debridement measurements: 09/24/2023: 2.5 x 1.7 x 0.2 cm Post-debridement measurements: 09/03/2023: 2.5 x 1.8 x 0.2 cm Post-debridement measurements: 08/09/2023: 2.0 x 1.6 x 0.2 cm Post-debridement measurements: 07/19/2023: 2.0 x 1.7 x 0.2 cm Post-debridement measurements: 06/27/2023: 2.1 x 2.0 x 0.2 cm Post-debridement measurements: 06/05/2023: 2.2 x 1.5 x 0.2 cm Post-debridement measurements: 05/15/2023: 2.0 x 1.5 x 0.2 cm Post-debridement measurements: 04/24/2023: 2.0 x 1.5 x 0.2 cm Post-debridement measurements: 03/29/2023: 2.0 x 1.4 x 0.2 cm Post-debridement measurements: 02/27/2023: 2.0 x 1.1 x 0.2 cm Post-debridement measurements: 01/30/2023: 1.7 x 1.0 x 0.2 cm Post-debridement measurements: 01/03/2023: 1.8 x 1.7 x 0.2 cm Post-debridement measurements: 12/19/2022: 1.8 x 1.0 x 0.2 cm Post-debridement measurements: 11/22/2022: 2.0 x 1.0 x 0.2 cm Post-debridement measurements: 10/30/2022: 1.6 x 1.0 x 0.2 cm Post-debridement measurements: 10/03/2022: 1.6 x 1.0 x 0.2 cm Post-debridement measurements: 09/12/2022: 1.7 x 1.1 x 0.2 cm Post-debridement measurements: 08/27/2022: 1.7 x 1.1 x 0.2 cm Orthopedic: DEFORMITIES: severe gastrocsoleus equinus bilateral. multiple digital deformities. Flaccid PVP foot structure. 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 Radiology: Assessment/Plan 1. Sal[place] stage II neuropathic wound right midfoot; chronic, stable wound. Previous wounds remain well-healed. 2. 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 LE neuropathy/LOPS 4. Acquired bilateral foot and LE deformities 5. Acquired hyperkeratotic lesions navicular tuberosity bilateral. 6. Status post Epifix x 10; (#10 applied 03/14/2022) Impression: Clean stable recalcitrant wound; without progression towards secondary intention healing. Plan: Clinical Notes: review of clinical findings, high risk nature of the condition and treatment rationale. 1. Sharp debridement and wound preparation followed by Supra SDRM biodegradable matrix application #8 (donated product/assistance program). 2. Dressing intact, clean and dry x 7 days; with instructions to default to Mefix dressings daily as indicated. 3. Offloading measures: Right AFO; compliance remains a challenging problem. Wheelchair as necessary. Procedure: Right foot: Aseptic technique: #15 scalpel: Sharp, active, selective full-thickness excisional debridement; to the level of subcutaneous granular wound bed; excising devitalized, non-viable, dystrophic, fibrous and hyperkeratotic tissue, particularly of the wound perimeter, reducing direct and indirect pressure; reducing wound contamination and bioburden. Sharp curettage of wound bed stimulating granular bleeding. Saline cleansing. Pressure hemostasis. Supra SDRM biodegradable matrix wound dressing applied in stacked technique; Rylon non-adherent dressing; secured with Steri-Strips in a window frame technique; followed by a dry sterile dressing; secured with Mefix under mild Coban compression. This note was created with the assistance of a speech recognition program. While intending to generate a timely document that accurately reflects the content of the visit, no guarantee can be provided that every grammatical or spelling mistake has been or will be identified or corrected. Thank you for your understanding. Maria Luisa Wagner DPM documented in this encounter [facility] 01-28-2024 Instructions Maria Luisa Wagner DPM - 01/28/2024 2:30 PM EDT Wound care instructions as noted documented in this encounter [facility] 01-27-2024 History of Present illness Narrative Patient presents for Suprapubic catheter change with #24 fr Sp catheter attached to Leg bag . Patient prepped and draped and Sp Site cleansed with betadine swabs 2% lidocaine urojet instilled for comfort. # 24 fr Sp klein safely removed and replaced with # 24 fr Sp klein catheter 10 cc's to placement balloon. klein then flushed with sterile water with return of yellow fluid. Sp klein catheter then attached to drainage bag. night bag given. Sho Fabian CMA Ordering Doctor:MD Dania Supervising doctor:Dr Obie MD documented in this encounter [facility] 01-13-2024 History of Present illness Narrative Images from the original note were not included. Subjective Patient ID: Igor Pereira is a 63 y.o. male who presents for Wound Care (Igor Pereira is a 63 y.o. male who presents for Foot Wound Check. Pt presents today with his caregiver Evelyn for a wound check. Dressing was in place until Saturday01/11/24.). HPI Follow-up assessment and wound care: Chronic, recalcitrant neuropathic wound; located dorsal lateral surface of the right midfoot. Accompanied by his caregiver, Evelyn. Status post SDRM 6th application (01/03/2024). Patient removed dressing after 8 days; with default to Mesalt dressings. Care staff reports no interval/new problems or complications; again noting episodes the patient walking without AFO in place; essentially dragging the dorsal lateral surface of his right foot along the floor. Medications Current Outpatient Medications: acetaminophen (Tylenol) 325 MG tablet, Take by mouth., Disp: , Rfl: amLODIPine (Norvasc) 2.5 MG tablet, Take 2.5 mg by mouth in the morning., Disp: , Rfl: ammonium lactate (Lac-Hydrin) 12 % lotion, Apply topically if needed for dry skin., Disp: , Rfl: bacitracin 500 UNIT/GM ointment, Apply topically 2 (two) times a day., Disp: , Rfl: carbamide peroxide (Debrox) 6.5 % otic solution, 5 drops in the morning and 5 drops before bedtime., Disp: , Rfl: citalopram (CeleXA) 20 MG tablet, Take by mouth., Disp: , Rfl: citalopram (CeleXA) 40 MG tablet, Take 20 mg by mouth., Disp: , Rfl: dextromethorphan 7.5 MG/5ML syrup, Take 7.5 mg by mouth every 6 (six) hours if needed for cough., Disp: , Rfl: dilTIAZem CD (Cardizem CD) 240 MG 24 hr capsule, Take 240 mg by mouth in the morning., Disp: , Rfl: divalproex (Depakote ER) 250 MG 24 hr tablet, Take 250 mg by mouth Daily Do not crush, chew, or split., Disp: , Rfl: ferrous sulfate 325 (65 Fe) MG tablet, Take 325 mg by mouth in the morning. Take with meals., Disp: , Rfl: guaiFENesin (Robitussin) 100 MG/5ML liquid, Take 200 mg by mouth 3 (three) times a day as needed for cough., Disp: , Rfl: hydrocortisone (Proctozone-HC) 2.5 % rectal cream, Insert into the rectum 2 (two) times a day, Disp: , Rfl: Lactobacillus (ACIDOPHILUS PO), Take by mouth., Disp: , Rfl: lactulose (Chronulac) 10 GM/15ML solution, Take 20 g by mouth in the morning and 20 g in the evening and 20 g before bedtime., Disp: , Rfl: LACTULOSE ENCEPHALOPATHY PO, Take by mouth., Disp: , Rfl: lisinopril 30 MG tablet, Take by mouth Daily, Disp: , Rfl: LORazepam (Ativan) 2 MG tablet, Take 2 mg by mouth., Disp: , Rfl: meloxicam (Mobic) 7.5 MG tablet, Take by mouth., Disp: , Rfl: Menthol-Zinc Oxide (Calmoseptine) 0.44-20.6 % ointment, Apply topically, Disp: , Rfl: miconazole (Micotin) 2 % powder, Apply topically if needed for itching., Disp: , Rfl: Mirabegron (MYRBETRIQ PO), Take by mouth., Disp: , Rfl: Multiple Vitamin (multivitamin) tablet, Take 1 tablet by mouth in the morning., Disp: , Rfl: Multiple Vitamins-Minerals (TAB-A-XIOMARA MAXIMUM PO), Take by mouth., Disp: , Rfl: omega-3 acid ethyl esters (Lovaza) 1 g capsule, Take 1 g by mouth in the morning and 1 g before bedtime., Disp: , Rfl: oxybutynin XL (Ditropan-XL) 15 MG 24 hr tablet, Take 15 mg by mouth in the morning. Do not crush, chew, or split. ., Disp: , Rfl: polyethylene glycol, PEG, 3350 (Glycolax) 17 GM/SCOOP powder, Take by mouth., Disp: , Rfl: psyllium (Metamucil) 28 % packet, Take 1 packet by mouth in the morning and 1 packet before bedtime. Mix and drink with at least 8 ounces of water or juice.., Disp: , Rfl: raNITIdine (Zantac) 150 MG tablet, Take 150 mg by mouth in the morning and 150 mg before bedtime., Disp: , Rfl: risperiDONE (RisperDAL) 2 MG tablet, Take 1.5 mg by mouth in the morning and 1.5 mg before bedtime., Disp: , Rfl: senna-docusate (Fatimah-Colace) 8.6-50 MG tablet, Take 1 tablet by mouth in the morning., Disp: , Rfl: simvastatin (Zocor) 10 MG tablet, Take 10 mg by mouth at bedtime., Disp: , Rfl: Skin Protectants, Misc. (DERMACERIN EX), Apply topically, Disp: , Rfl: sodium phosphate (Fleet) 3.5-9.5 GM/59ML enema, Insert into the rectum, Disp: , Rfl: Water For Irrigation, Sterile ([place] Sterile Water) solution, Irrigate with as directed, Disp: , Rfl: zinc gluconate 50 MG tablet, Take 50 mg by mouth Daily, Disp: , Rfl: Allergies Patient has no known allergies. Past Surgical History Past Surgical History: Procedure Laterality Date BACK SURGERY Family History Family History Problem Relation Name Age of Onset Mental illness Maternal Grandfather Objective General Examination: GENERAL EXAMINATION: Presents ambulatory with double-arm crutch. Bilateral AFOs in place, wearing new balance shoes. Accompanied by caregiver, Evelyn. Vascular: DORSALIS PEDIS PULSE: 1/4 bilateral. POSTERIOR TIBIAL PULSE: 1/4 bilateral. CAPILLARY REFILL: <3 seconds. TEMPERATURE GRADIENT: warm to slightly cool. EDEMA: unremarkable for ankle edema. Neurologic: DEEP TENDON REFLEXES: Patellar, Achilles, 0/5. MUSCLE POWER: diffuse flacid paralysis bilateral LE. SHARP SENSATION: absent. SEMMES-RAUL 5.07 MONOFILAMENT: Unable to localize all points plantarly. Dermatologic: SKIN FINDINGS: intact, skin turgor is otherwise good. NAIL PATHOLOGY: dystrophic , discolored. INTERDIGITAL MACERATION: Clean and dry. ULCER: Right foot: dorsolateral midfoot: [place] stage II neuropathic wound; location dorsal-lateral midfoot; appearance remains stable. Wound bed remains moist, clean, variably fibrous and granular; minimal serous drainage, without undermining, tunneling or probing. The wound margins are well adhered, slightly raised, fibrotic and keratotic; mildly macerated. There are no clinical signs of infection. Unremarkable for malodor or ischemic changes. Soft tissue envelope well perfused. Chronic, stable fluctuant swelling of the right midfoot. Post-debridement measurements: 01/13/2024: 1.9 x 1.8 x 0.2 cm Post-debridement measurements: 01/03/2024: 2.0 x 1.8 x 0.1 cm Post-debridement measurements: 12/27/2023: 2.1 x 1.5 x 0.1 cm Post-debridement measurements: 12/20/2023: 1.9 x 1.5 x 0.1 cm Post-debridement measurements: 12/13/2023: 2.1 x 1.6 x 0.1 cm Post-debridement measurements: 12/05/2023: 2.0 x 1.5 x 0.2 cm Post-debridement measurements: 11/26/2023: 2.5 x 1.6 x 0.2 cm Post-debridement measurements: 11/05/2023: 2.2 x 1.6 x 0.2 cm Post-debridement measurements: 10/15/2023: 2.5 x 1.5 x 0.2 cm Post-debridement measurements: 09/24/2023: 2.5 x 1.7 x 0.2 cm Post-debridement measurements: 09/03/2023: 2.5 x 1.8 x 0.2 cm Post-debridement measurements: 08/09/2023: 2.0 x 1.6 x 0.2 cm Post-debridement measurements: 07/19/2023: 2.0 x 1.7 x 0.2 cm Post-debridement measurements: 06/27/2023: 2.1 x 2.0 x 0.2 cm Post-debridement measurements: 06/05/2023: 2.2 x 1.5 x 0.2 cm Post-debridement measurements: 05/15/2023: 2.0 x 1.5 x 0.2 cm Post-debridement measurements: 04/24/2023: 2.0 x 1.5 x 0.2 cm Post-debridement measurements: 03/29/2023: 2.0 x 1.4 x 0.2 cm Post-debridement measurements: 02/27/2023: 2.0 x 1.1 x 0.2 cm Post-debridement measurements: 01/30/2023: 1.7 x 1.0 x 0.2 cm Post-debridement measurements: 01/03/2023: 1.8 x 1.7 x 0.2 cm Post-debridement measurements: 12/19/2022: 1.8 x 1.0 x 0.2 cm Post-debridement measurements: 11/22/2022: 2.0 x 1.0 x 0.2 cm Post-debridement measurements: 10/30/2022: 1.6 x 1.0 x 0.2 cm Post-debridement measurements: 10/03/2022: 1.6 x 1.0 x 0.2 cm Post-debridement measurements: 09/12/2022: 1.7 x 1.1 x 0.2 cm Post-debridement measurements: 08/27/2022: 1.7 x 1.1 x 0.2 cm Orthopedic: DEFORMITIES: severe gastrocsoleus equinus bilateral. multiple digital deformities. Flaccid PVP foot structure. 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 Radiology: Assessment/Plan 1. Sal[place] stage II neuropathic wound right midfoot; chronic, stable wound. Previous wounds remain well-healed. 2. 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 LE neuropathy/LOPS 4. Acquired bilateral foot and LE deformities 5. Acquired hyperkeratotic lesions navicular tuberosity bilateral. 6. Status post Epifix x 10; (#10 applied 03/14/2022) Impression: Clean stable recalcitrant wound; without progression towards secondary intention healing. Plan: Clinical Notes: review of clinical findings, high risk nature of the condition and treatment rationale. 1. Sharp debridement and wound preparation followed by Supra SDRM biodegradable matrix application #7 (donated product/assistance program). 2. Dressing intact, clean and dry x 7 days; with instructions to then default default to Mefix dressings. 3. Offloading measures: Right AFO; compliance remains a challenging problem. Wheelchair as necessary. Procedure: right foot: Aseptic technique: #15 scalpel: Sharp, active, selective full-thickness excisional debridement; to the level of subcutaneous granular wound bed; excising devitalized, non-viable, dystrophic, fibrous and hyperkeratotic tissue, particularly of the wound perimeter, reducing directed indirect pressure; reducing wound contamination and bioburden. Sharp curettage of wound bed stimulating granular bleeding. Saline cleansing. Pressure hemostasis. Supra SDRM biodegradable matrix wound dressing applied in stacked technique; Rylon non-adherent dressing; secured with Steri-Strips in a window frame technique; followed by a dry sterile dressing; secured under mild Coban compression. This note was created with the assistance of a speech recognition program. While intending to generate a timely document that accurately reflects the content of the visit, no guarantee can be provided that every grammatical or spelling mistake has been or will be identified or corrected. Thank you for your understanding. Maria Luisa Wagner DPM documented in this encounter [facility] 01-13-2024 Instructions Maria Luisa Wagner DPM - 01/13/2024 12:45 PM EDT Wound care instructions as noted documented in this encounter [facility] 01-10-2024 History of Present illness Narrative Images from the original note were not included. [address] [place] [id number] SUBJECTIVE: Video Visit via Real-time Synchronous Audiovisual Provider Location: [facility] [address] [place] [address] Patient Location: Patient's home Video Visit Consent Statement: I discussed risks, benefits, and alternatives of a real-time synchronous audiovisual consultation with the patient (and any accompanying persons) including the risks that the patient's personal health details and medical records will be discussed over real-time, synchronous, interactive video/audio/telecommunication technology, the visit will not be recorded without the express consent of both the provider and the patient, and that there are some limitations compared to [id number] evaluations. The patient consented to the presence of additional virtual and/or in-person participants. We elected to proceed. Patient ID: Igor Pereira is a 63 y.o. male. Chief Complaint Patient presents with COVID 19 Patient is accompanied by facility RN today. Resides at local [facility]. Cognitive and intellectual delay. RN reports 4 other residents have COVID as well. Symptoms started January 08, 2024 with congestion, headache, and low grade fever. Is eating and drinking. Went to urgent care yesterday, tested positive. Provider did not order or offer Paxlovid. The following portions of the patient's history were reviewed and updated as appropriate: allergies, current medications, past family history, past medical history, past social history, past surgical history and problem list. Past Surgical History: Procedure Laterality Date BLADDER SURGERY suprapubic catheter placement COLONOSCOPY N/A 02/15/2022 Performed by Annette Box DO at [facility] COLONOSCOPY N/A 12/17/2016 Performed by Annette Box DO at [facility] SPINE SURGERY Past Medical History: Diagnosis Date Anemia Anxiety Bilateral impacted cerumen 10/23/2016 Calculus, bladder Cerumen debris on tympanic membrane of both ears 01/29/2017 Colon polyps Hydrocephalus ([facility]) Hydronephrosis Hypertension Neurogenic bladder Restlessness and agitation 01/10/2017 Spina bifida of lumbar spine ([facility]) Stricture, ureter Suprapubic catheter ([facility]) Urinary tract infection Immunization History Administered Date(s) Administered COVID-19, mRNA, LNP-S, PF, 100mcg/0.5mL Dose 07/17/2021 COVID-19, mRNA, LNP-S, PF, 30mcg/0.3mL Dose 05/30/2020, 06/27/2020 DTaP 06/20/2011 H1N1 Inj 04/27/2009 Influenza, Injectable, quadrivalent (PF) 03/01/2017, 03/06/2018, 03/03/2019, 03/10/2020, 03/20/2021, 03/26/2022, 03/22/2023 Influenza, Unspecified 03/01/2017 MMR 10/29/1983 Pneumococcal Polysaccharide 04/05/2006, 04/17/2013 Td (adult), 2 Lf tetanus toxoid, preservative free, adsorbed 10/29/1983, 03/10/1984, 03/09/1985 Tdap 07/13/1994 Zoster Live 01/27/2019, 04/21/2019 Zoster Vaccine Recombinant 01/27/2019, 04/21/2019 REVIEW OF SYSTEMS: Review of Systems Constitutional: Positive for fatigue. Negative for chills and fever. HENT: Positive for congestion, postnasal drip and voice change. Negative for hearing loss and trouble swallowing. Eyes: Negative for pain and visual disturbance. Respiratory: Positive for cough. Negative for chest tightness and shortness of breath. Cardiovascular: Negative for chest pain, palpitations and leg swelling. Gastrointestinal: Negative for blood in stool. Endocrine: Negative for polydipsia, polyphagia and polyuria. Genitourinary: Negative for difficulty urinating, dysuria, flank pain, hematuria, scrotal swelling and testicular pain. Musculoskeletal: Negative. Skin: Negative. Allergic/Immunologic: Negative. Neurological: Positive for headaches. Negative for seizures and syncope. Hematological: Does not bruise/bleed easily. Psychiatric/Behavioral: Negative. PHYSICAL EXAMINATION: There were no vitals filed for this visit. Deferred, Telehealth Video Visit Physical Exam Deferred, Telehealth Video Visit ASSESSMENT/PLAN: Igor was seen today for covid 19. Diagnoses and all orders for this visit: COVID-19 - nirmatrelvir-ritonavir (PAXLOVID) tablets; Take 2 tablets by mouth in the morning and 2 tablets before bedtime. Do all this for 5 days. HOLD SIMVASTATIN WHILE TAKING THIS MEDICATION. Cool mist humidification for congestion, warm salt water gargles as needed for sore throat. Tylenol as needed per yarn winder guidelines for fever or pain. May continue Tylenol and Robitussin PRN as directed Start Paxlovid as directed Increase fluids Recommend not to return to day program until after Sunday January 14, 2024 ALL QUESTIONS ANSWERED Total time spent was 25 minutes: Preparing to see the patient (e.g., review of tests) Obtaining and/or reviewing separately obtained history Performing a medically appropriate examination and/or evaluation Counseling and educating the patient/family/caregiver Ordering medications, tests, or procedures Follow-up: 3 MONTHS EVY Miner 01/10/24 1034 documented in this encounter [facility] 01-10-2024 Miscellaneous Notes Addended by: CHAPIN CAST on: 01/10/2024 11:33 AM Modules accepted: Orders documented in this encounter [facility] 01-10-2024 Note Addended by: CHAPIN YORK on: 01/10/2024 11:33 AM Modules accepted: Orders [facility] 01-07-2024 History of Present illness Narrative Patient presents for Suprapubic catheter change with # 24 fr Sp catheter attached to a leg bag. Patient prepped and draped and Sp Site cleansed with betadine swabs 2% lidocaine urojet instilled for comfort. # 24 fr Sp klein safely removed and replaced with # 24 fr Sp klein catheter 10 cc's to placement balloon port. Sp klein catheter then attached to leg bag. Pt. Tolerated well with no difficulties, will return in 3-4 weeks for next SP change. Hope Gonzalez LPN Ordering Doctor:MD Dania Supervising doctor:MD Dania documented in this encounter [facility] 12-10-2023 History of Present illness Narrative Patient presents for Suprapubic catheter change with # 24 fr Sp catheter attached to leg bag. Patient prepped and draped and Sp Site cleansed with betadine swabs. This nurse did have a hard time taking the catheter out so more lube was added to the stoma prior to taking the S/P tube out. # 24 fr Sp klein safely removed and replaced with # 24 fr Sp klein catheter 9 cc's to placement balloon. Sp klein catheter then attached to drainage bag. Tolerated the procedure with no difficulties. Hope Gonzalez LPN Ordering Doctor: MD Dania Supervising doctor: MD Dania documented in this encounter [facility] 11-12-2023 History of Present illness Narrative Patient presents for Suprapubic catheter change with #24 fr Sp catheter attached to a leg bag. Caregiver present. Patient prepped and draped and Sp Site cleansed with betadine swabs. # 24 fr Sp klein safely removed. Catheter tip is in tact. Replaced with # 24 fr Sp klein catheter 9 cc's to placement balloon.. Sp klein catheter then attached to drainage bag. Pt.'s old catheter had little to no sediment in the catheter tubing, so it was fairly easy to remove and replace with the new catheter. Pt. Tolerated the catheter change very well with no difficulties. No further questions or concerns. Pt.'s Caregiver stated that he has been leaking less around the stoma since there has been more water added to the balloon port. Hope Gonzalez LPN Ordering Doctor: MD Dania Supervising doctor:MD Dania documented in this encounter [facility] 11-06-2023 History of Present illness Narrative Routine lab draw EVY Miner 11/06/23 0856 [facility] History of Present illness Narrative Subjective SUBJECTIVE: Patient ID: Igor Pereira is a 63 y.o. male who presents for a Medicare Annual Wellness exam. Resides at [facility]. He is accompanied today by RN. Planning on having dental procedure with possible general anesthesia. Resides at [facility] Accompanied by RN today. Total care provided by staff, including medication administration. Severe cognitive and intellectual delay. Able to verbalize needs in short phrases and facial expressions. Is monitored by Dr. Palacios for neurogenic bladder, suprapubic catheter. Psychiatry for impulse control, Dr. Cali. Podiatry, Dr. Wagner. The following portions of the patient's history were reviewed and updated as appropriate: allergies, current medications, past family history, past medical history, past social history, past surgical history and problem list. Past Surgical History: Procedure Laterality Date BLADDER SURGERY suprapubic catheter placement COLONOSCOPY N/A 02/15/2022 Performed by Annette Box DO at [facility] COLONOSCOPY N/A 12/17/2016 Performed by Annette Box DO at [facility] Past Medical History: Diagnosis Date Anemia Anxiety Bilateral impacted cerumen 10/23/2016 Calculus, bladder Cerumen debris on tympanic membrane of both ears 01/29/2017 Colon polyps Hydrocephalus ([facility]) Hydronephrosis Hypertension Neurogenic bladder Restlessness and agitation 01/10/2017 Spina bifida of lumbar spine ([facility]) Stricture, ureter Suprapubic catheter ([facility]) Urinary tract infection Immunization History Administered Date(s) Administered COVID-19, mRNA, LNP-S, PF, 100mcg/0.5mL Dose 07/17/2021 COVID-19, mRNA, LNP-S, PF, 30mcg/0.3mL Dose 05/30/2020, 06/27/2020 DTaP 06/20/2011 H1N1 Inj 04/27/2009 Influenza, Injectable, quadrivalent (PF) 03/01/2017, 03/06/2018, 03/03/2019, 03/10/2020, 03/20/2021, 03/26/2022, 03/22/2023 Influenza, Unspecified 03/01/2017 MMR 10/29/1983 Pneumococcal Polysaccharide 04/05/2006, 04/17/2013 Td (adult), 2 Lf tetanus toxoid, preservative free, adsorbed 10/29/1983, 03/10/1984, 03/09/1985 Tdap 07/13/1994 Zoster Live 01/27/2019, 04/21/2019 Zoster Vaccine Recombinant 01/27/2019, 04/21/2019 AWV FLOWSHEET : Lifestyle Assessment Do you smoke or use smokeless tobacco?: No If you smoke or use smokeless tobacco, are you ready to quit?: (!) No Are you exposed to secondhand smoke?: No On average, how many drinks of alcohol do you consume in a week?: None Do you exercise for 30 or more minutes on average at least 3 days a week?: (!) Never Do you have any tooth, denture, or oral problems?: No Do you snore or has anyone told you that you snore?: (Unable to appropriatly answer due to severe cognative and intellectual delay.) Do you try to eat a balanced diet?: Yes (Meals are prepared by caregivers. Meals are developed per facility dietitian) Do you have difficulty performing any of these activities? (check all that apply): (!) Bathing, Dressing, Grooming, Eating, Getting out of a chair, Walking, Using the toilet Do you have difficulty performing any of these activities? (check all that apply): (!) Laundry, Housekeeping, Preparing a meal, Shopping, Using transportation, Paying bills, Managing finances Fall Risk Have you fallen two or more times in the past year?: No Are you afraid of falling?: No Depression Screening Little interest or pleasure in doing things: Not at all (Unable to appropriatly answer due to severe cognative and intellectual delay.) Feeling down, depressed, or hopeless: Not at all Trouble falling or staying asleep, or sleeping too much: Not at all Feeling tired or having little energy: Not at all Poor appetite or overeating: Not at all Feeling bad about yourself - or that you are a failure or have let yourself or your family down: Not at all Trouble concentrating on things, such as reading the newspaper or watching television: Not at all Moving or speaking so slowly that other people could have noticed. Or the opposite - being so fidgety or restless that you have been moving around a lot more than usual: Not at all Thoughts that you would be better off , or of hurting yourself in some way: Not at all Safety Assessment Do you have throw rugs on the floor?: No Do you feel safe at your home?: Yes Do you feel unsteady when walking?: (!) Yes Are you having difficulty with driving?: N/A Do you have trouble seeing?: No What assistive device do you use? (check all that apply): (!) Walker Hearing Assessment Do you strain or struggle to hear/understand conversations?: No Do you have trouble hearing the television or radio when others do not?: No (Unable to appropriatly answer due to severe cognative and intellectual delay.) Does your family ever voice concerns about your hearing?: No Personal Health During the past 4 weeks, how would you rate your overall health?: (Unable to appropriatly answer due to severe cognative and intellectual delay.) End of Life Planning Do you have a living will?: (!) No Do you have a durable power of research attorney?: Yes Cognitive Screening Do you have trouble remembering or recalling facts or events?: (Unable to appropriatly answer due to severe cognative and intellectual delay.) Clock Drawing Test: Abnormal mini mental exam deferred REVIEW OF SYSTEMS: Review of Systems Reason unable to perform ROS: RN COMPLETES ROS DUE TO SEVERE INTELLECTUAL AND COGNATIVE DELAY. Constitutional: Negative for chills, fatigue and fever. [...] hematuria, scrotal swelling and testicular pain. Musculoskeletal: Negative. Skin: Negative. Allergic/Immunologic: Negative. Neurological: Negative for seizures, syncope and headaches. Hematological: Does not bruise/bleed easily. Psychiatric/Behavioral: Negative. Behavior at baseline Objective PHYSICAL EXAMINATION: Vitals: 10/25/23 0831 BP: 139/68 Pulse: 98 Resp: 21 Temp: 36.4 C (97.6 F) TempSrc: Temporal Weight: 69.4 kg (153 lb) Relevant Labs: No results found for: HGBA1C No results found for: MICROALBUR , URINECREAT , ALBCREATRA No results found for: TSH , T4 Lab Results Component Value Date VITD25 29.2 (L) 08/17/2022 Lab Results Component Value Date WBC 8.4 08/17/2022 RBCCOUNT 4.05 (L) 08/17/2022 HGB 11.8 (L) 08/17/2022 HCT 35.7 (L) 08/17/2022 MCV 88 08/17/2022 MCH 29.1 08/17/2022 MCHC 33.0 08/17/2022 RDW 14.2 08/17/2022 PLT 216 08/17/2022 MPV 8.4 08/17/2022 No results found for: PSA Lab Results Component Value Date SODIUM 137 08/17/2022 K 3.9 08/17/2022 CL 103 08/17/2022 CO2 26 08/17/2022 ANIONGAP 8 08/17/2022 BUN 27 (H) 08/17/2022 GLU 92 08/17/2022 CALCIUM 9.0 08/17/2022 TOTALPROTEI 6.9 08/17/2022 ALBUMIN 3.8 08/17/2022 ALKPHOS 68 08/17/2022 AST 13 08/17/2022 ALT 20 08/17/2022 GFR 59 (L) 12/12/2020 GFR >60 12/12/2020 Imaging: No results found. Physical Exam Vitals and nursing note reviewed. [...] or rebound. Hernia: No hernia is present. Musculoskeletal: General: No tenderness. Normal range of [...] and Affect: Mood normal. Behavior: Behavior normal. Assessment/Plan ASSESSMENT/PLAN Diagnoses and all orders for this visit: Medicare annual wellness visit, subsequent Colonoscopy screening discussed today. Risk and benefits of procedure explained. Patient completed in 2021. Stool prep was poor, limiting surgeon to complete. Recommendations was repeat in 6 months. Family requested not to pursue further. Labs per standing routine orders. He is FULL CODE status. Has family who assist with advocating his wishes. Total time spent was 30 minutes: Preparing to see the patient (e.g., review of tests) Obtaining and/or reviewing separately obtained history Performing a medically appropriate examination and/or evaluation Counseling and educating the patient/family/caregiver Return in about 3 months (around 01/25/2024). There are no Patient Instructions on file for this visit. EVY Miner 10/28/23 1317 documented in this encounter [facility] 10-15-2023 History of Present illness Narrative Patient presents for Suprapubic catheter change with # 24 fr Sp catheter attached to a leg bag. Patient prepped and draped and Sp Site cleansed with betadine swabs 2% lidocaine urojet instilled for comfort. # 24 fr Sp klein safely removed and replaced with # 24 fr Sp klein catheter 8 cc's to placement balloon. klein then flushed with sterile water with return of clear to yellow fluid. Sp klein catheter then attached to drainage bag. night bag given. Hope Gonzalez LPN Ordering Doctor: MD Dania Supervising doctor: MD Dania documented in this encounter [facility] 10-04-2023 History of Present illness Narrative Patient Name: Igor Pereira Date of : 1960 Date of Service: October 04, 2023 Facility: [facility] Igor Pereira is a 63 y.o. male seen today at [facility] for Chief Complaint Patient presents with Routine 3 month follow up . Resides at [facility] Accompanied by RN today. Total care provided by staff, including medication administration. Attends daily workshop Severe cognitive and intellectual delay. Able to verbalize needs in short phrases and facial expressions. RN reports Igor has been doing well. There is no concerns today. Hypertension This is a chronic problem. The [...] of both ears 01/29/2017 Colon polyps Hydrocephalus ([facility]) Hydronephrosis Hypertension Neurogenic bladder Restlessness and agitation 01/10/2017 Spina bifida of lumbar spine ([facility]) Stricture, ureter Suprapubic catheter ([facility]) Urinary tract infection Past Surgical History: Procedure Laterality Date BLADDER SURGERY suprapubic catheter placement COLONOSCOPY N/A 02/15/2022 Performed by Annette Box DO at [facility] COLONOSCOPY N/A 12/17/2016 Performed by Annette Box DO at [facility] Family History Problem Relation [...] morning. 30 tablet 11 multivitamin with iron (TAB-A-XIOMARA/IRON ORAL) See Admin Instructions. MYRBETRIQ 50 mg [...] NOT USING SOD CHLORIDE) 500 mL 11 TAB-A-XIOMARA MULTIVITAMIN W-IRON 18-400 mg-mcg tablet TAKE 1 [...] no known allergies. Code Status: FULL CODE The following portions of the patient's history were reviewed and updated as appropriate: allergies, current medications, past family history, past medical history, past social history, past surgical history, problem list, and medication reconciliation was completed including current medication and post discharge medication. Review of Systems Reason unable to perform ROS: RN completes ROS due to patient intellectual and cognative delay. Constitutional: Negative for chills, fatigue and [...] hematuria, scrotal swelling and testicular pain. Musculoskeletal: Negative. Skin: Negative. Allergic/Immunologic: Negative. Neurological: Negative for seizures, syncope and headaches. Hematological: Does not bruise/bleed easily. Psychiatric/Behavioral: Negative. Objective BP 138/68 Pulse 72 Temp 36.5 C (97.7 F) (Temporal) Resp 20 Wt 69.4 kg (153 lb) SpO2 98% BMI 27.98 kg/m Physical Exam Vitals and nursing note [...] and Affect: Mood normal. Behavior: Behavior normal. Assessment/Plan Summary / Assessment / Plan 1. Primary hypertension 2. Mixed hyperlipidemia 3. Intellectual disability 4. Impulse control disorder in adult 5. Chronic constipation 1. HTN Continue lisinopril Continue amlodipine 2.5 mg oral daily. 2. Mixed hyperlipidemia Continue simvastatin 10 mg oral daily 3. Impulse control disorder OCD, impulse control Managed by Dr. Cali, psychiatry 4. Chronic constipation Caregiver reports no concerns. Continue lactulose, Miralax, Senokot, increased fiber diet. Total time spent was 25 minutes: Preparing to see the patient (e.g., review of tests) Obtaining and/or reviewing separately obtained history Performing a medically appropriate examination and/or evaluation Counseling and educating the patient/family/caregiver Ordering medications, tests, or procedures There are no Patient Instructions on file for this visit. ELECTRONICALLY SIGNED BY: EVY Miner APRN-CNP 10/21/23 1448 documented in this encounter [facility] 09-10-2023 History of Present illness Narrative Caregiver and Patient presents for Suprapubic catheter change with # 24 fr Sp catheter attached to a leg bag. Patient prepped and draped and Sp Site cleansed with betadine swabs 2% lidocaine urojet instilled for comfort. # 24 fr Sp klein safely removed and replaced with # 24 fr Sp klein catheter 10 cc's to placement balloon. Sp klein catheter then attached to drainage bag. night bag given. Tolerated procedure well, will return in 4 weeks for next SP tube change. Hope Gonzalez LPN Ordering Doctor: MD Dania Supervising doctor: MD Dania documented in this encounter [facility] 08-13-2023 History of Present illness Narrative Patient [...] doctor: MD Dania documented in this encounter [facility] 07-09-2023 Miscellaneous Notes Called pt caregiver to schedule next SP catheter change. Should be in about 4 weeks (around 08/06/2023). I asked them to call back at [phone] to schedule. documented in this encounter [facility] 07-09-2023 Telephone encounter Note Called pt caregiver to schedule next SP catheter change. Should be in about 4 weeks (around 08/06/2023). I asked them to call back at [phone] to schedule. [facility] 07-09-2023 History of Present illness Narrative Patient [...] doctor: MD Dania documented in this encounter [facility] [employer] 07-05-2023 History of Present illness Narrative Patient Name: Igor Pereira Date of : 1960 Date of Service: 07/15/2023 Facility: [facility] Igor Pereira is a 63 y.o. male seen today at [facility] for Chief Complaint Patient presents with routine follow up . Resides at [facility] [place] Accompanied by RN today. Total care provided by staff, including medication administration. Attends daily workshop Severe cognitive and intellectual delay. Able to verbalize needs in short phrases and facial expressions. Was ordered PT at previous appointment due to falls. RN states never received call for set up. She would like new referral to [facility], request Trixie Shea. Patient is homebound. Request PT in the home. He has not had any recent falls. He was started on Mobic for multiple joint arthritic pain. This has improved his symptoms. Resent visit to [facility] for clogged suprapubic catheter on 06/06/22. This [...] of both ears 01/29/2017 Colon polyps Hydrocephalus ([facility]) Hydronephrosis Hypertension Neurogenic bladder Restlessness and agitation 01/10/2017 Spina bifida of lumbar spine ([facility]) Stricture, ureter Suprapubic catheter ([facility]) Urinary tract infection Past Surgical History: Procedure Laterality Date BLADDER SURGERY suprapubic catheter placement COLONOSCOPY N/A 02/15/2022 Performed by Annette Box DO at [facility] COLONOSCOPY N/A 12/17/2016 Performed by Annette Box DO at [facility] Family History Problem Relation [...] morning. 30 tablet 11 multivitamin with iron (TAB-A-XIOMARA/IRON ORAL) See Admin Instructions. MYRBETRIQ 50 mg [...] NOT USING SOD CHLORIDE) 500 mL 11 TAB-A-XIOMARA MULTIVITAMIN W-IRON 18-400 mg-mcg tablet TAKE 1 [...] set up. She request new referral for [facility]. 6. Osteoarthritis, multiple joints Meloxicam 7.5 mg [...] APRN-CNP 07/18/23 0917 documented in this encounter [facility] 06-11-2023 History of Present illness Narrative Pt. [...] doctor: MD Dania documented in this encounter [facility] 11-30-2022 History of Present illness Narrative ----- Wednesday, November 30, 2022 at 1:07:59 PM ----- ----- Provider: [id number] Resident Tamra -- Clinic: [facility] ----- OR EVALUATION Patient presents for evaluation [...] becomes available. Legal Guardian: Vilma Schmitt (Sister) [phone] , verbal consent was taken NOTE: OR request was put in place Next Visit: Dental treatment in the OR ----- Signed on Wednesday, November 30, 2022 at 8:25:31 PM ----- ----- Provider: [id number] Yamini Glass DMD -- Clinic: [facility] ----- documented in this encounter [facility] 09-29-2021 History of Present illness Narrative Surgical Case Number Data Unavailable Operating Room Data Unavailable Preoperative Diagnosis(es): Aggressive behavior Intellectual disability F79 Chronic Periodontitis K05.30 Postoperative Diagnosis(es): Aggressive behavior Intellectual disability F79 Surgeon: Wilma Haskins DDS Breeder Service Technician Surgeon: Leslye Guerra DDS Anesthesia: General- Nasal [...] 09/29/2021 1:10 PM documented in this encounter [facility] 09-27-2021 Miscellaneous Notes Please see scanned document in [employer]. Anesthesia consent obtained by Dr. Frazier by sister. documented in this encounter [facility] 09-20-2021 Miscellaneous Notes Outside pre-op evaluation received & scanned into [employer]. Medication list updated in [facility]. Scheduled for dental surgery 09/29/2021. documented in this encounter [facility] 09-20-2021 Miscellaneous Notes Patient is vaccinated for COVID-19: Moderna on 05/30/2020 & 06/27/2020. Patient does not require pre-op COVID testing per current guidelines. documented in this encounter [facility] Chief complaint+Reason for v isit Narrative Reason for Visit COVID-19 [facility] Work Phone: Evaluation noteNo assessment information available [facility] Work Phone: Evaluation note* Diagnosis Onset Date Resolution Status COVID-19 noneactive [facility] Work Phone: Evaluation note* Diagnosis Stage II pressure ulcer of right heel (CMS/HCC)- Primary Hereditary sensory-motor neuropathy, type I Peroneal muscular atrophy Lumbar spina bifida without hydrocephalus (CMS/HCC) Spina bifida without mention of hydrocephalus, lumbar region Flaccid paraplegia, incomplete, at lumbar level (CMS/HCC) [facility] Diagnosis Stage II pressure ulcer of right heel (CMS/HCC)- Primary Hereditary sensory-motor neuropathy, type I Peroneal muscular atrophy Lumbar spina bifida without hydrocephalus (CMS/HCC) Spina bifida without mention of hydrocephalus, lumbar region Flaccid paraplegia, incomplete, at lumbar level (CMS/HCC) [facility] Diagnosis Stage II pressure ulcer of right heel (CMS/HCC)- Primary Hereditary sensory-motor neuropathy, type I Peroneal muscular atrophy Lumbar spina bifida without hydrocephalus ([facility]) Spina bifida without mention of hydrocephalus, lumbar region Flaccid paraplegia, incomplete, at lumbar level ([facility]) documented in [facility] encounter [facility]* Diagnosis Anxiety due to invasive procedure Impulse control disorder Impulse control disorder, unspecified Intellectual disability Unspecified mental retardation [facility] Diagnosis Spastic neurogenic bladder- Primary Neurogenic bladder, NOS [facility] Diagnosis Suprapubic catheter (CMS-HCC)- Primary Other cystostomy status documented [facility] Diagnosis Suprapubic catheter (CMS-HCC)- Primary Other cystostomy status [facility] Diagnosis Medicare annual wellness visit, subsequent- Primary [facility] Diagnosis Suprapubic catheter (CMS-HCC)- Primary Other cystostomy status [facility] Diagnosis Primary hypertension- Primary Unspecified essential hypertension Mixed hyperlipidemia Intellectual disability Unspecified mental retardation Impulse control disorder in adult Chronic constipation Unspecified constipation [facility] SystemEvaluation note* Diagnosis Mixed hyperlipidemia- Primary Primary hypertension Unspecified essential hypertension Screening for diabetes mellitus Low ferritin Other nonspecific findings on examination of blood documented in this encounter [facility]* Diagnosis Anxiety due to invasive procedure Impulse control disorder Impulse control disorder, unspecified Intellectual disability Unspecified mental retardation documented in this encounter [facility]* Diagnosis Suprapubic catheter (CMS-HCC)- Primary Other cystostomy status documented in this encounter [facility] System[facility]* Diagnosis Falls, sequela- Primary Osteoarthritis of multiple joints, unspecified osteoarthritis type Primary hypertension Unspecified essential hypertension Mixed hyperlipidemia Chronic constipation Unspecified constipation Impulse control disorder Impulse control disorder, unspecified documented in this encounter [facility] System[facility]* Diagnosis Spastic neurogenic bladder- Primary Neurogenic bladder, NOS documented in this encounter [facility] System[facility]* Diagnosis Chronic constipation Unspecified constipation documented in this encounter [facility] System[facility] note* Diagnosis Pressure ulcer of right foot, stage 1 documented in this encounter [facility] System[facility] note* Diagnosis COVID-19- Primary documented in this encounter [facility] SystemEvaluation note* Diagnosis Suprapubic catheter (CMS-HCC)- Primary Other cystostomy status [facility]* Diagnosis Osteoarthritis of multiple joints, unspecified osteoarthritis type [facility]* Diagnosis Spastic neurogenic bladder- Primary Neurogenic bladder, NOS [facility]* Diagnosis Encounter for immunization- Primary [facility]* Diagnosis Benign essential HTN- Primary Chronic constipation Unspecified constipation Impulse control disorder Impulse control disorder, unspecified Intellectual disability Unspecified mental retardation Mixed hyperlipidemia documented in this encounter [facility]* Diagnosis Benign essential HTN- Primary Need for hepatitis C screening test Special screening examination for other specified viral diseases [facility]* Diagnosis Suprapubic catheter (CMS-HCC)- Primary Other cystostomy status [facility]* Diagnosis Primary hypertension- Primary Unspecified essential hypertension Chronic constipation Unspecified constipation Intellectual disability Unspecified mental retardation Impulse control disorder Impulse control disorder, unspecified Mixed hyperlipidemia [facility] SystemInstructionsNot on filedocumented in this encounter [facility] SystemInstructionsNot on filedocumented in this encounter [facility] SystemInstructionsNot on filedocumented in this encounter [facility] SystemInstructionsNot on filedocumented in this encounter [facility] SystemInstructionsNot on filedocumented in this encounter [facility]* Attachments The following attachments cannot be sent through Care Everywhere. * Yearly Physical for Adults (Norwegian) documented [facility] SystemInstructionsNot on file documented [facility] SystemInst[facility]* Attachments The following attachments cannot be sent through Care Everywhere. * Constipation Discharge Instructions, Adult (Norwegian) documented in [facility] SystemInstructionsNot on file documented in this [facility] SystemInstructionsNot on file [facility]* Attachments The following attachments cannot be sent through Care Everywhere. * Constipation, Adult ED (Norwegian) documented in this encounter[facility] SystemInstructionsNot on file documented in this encounterPro[facility] SystemInstructionsNot on file documented [facility] System[facility]* Attachments The following attachments cannot be sent through Care Everywhere. * COVID-19 overview (Norwegian) [facility]* Attachments The following attachments cannot be sent through Care Everywhere. * High blood pressure emergencies (Norwegian) documented in [facility] SystemInstructions* Attachments The following attachments cannot be sent through Care Everywhere. * High cholesterol (Norwegian) [facility] Summary Purpose Family History Relationship Condition Age at Onset Recorded Date/T ciera family member Unknown Advance Directives Advance Directive Response Recorded Date/ Time Advance Directives No January 11:37am Chief Complaint and Reason for Visit Chief Complaint congestion, fever, c ough Reason for Referral Specialty Diagnoses / Procedures Referred By Contac t Referred To Contact Diagnoses Suprapubic catheter ([facility]) Procedures ASPIRATION BLADDER INSERT SUPRAPUBIC CATHETER Gisela Palacios MD [address] [place], [place] [id number] Referral ID Status Reason Start Date Expiration Date V isits Requested Visits Authorized [id number] Pending Review 09/10/2023 09/09/2024 1 1 Specialty Diagnoses / Procedures Referred By Contac t Referred To Contact Diagnoses Suprapubic catheter ([facility]) Procedures Urinary leg bag Gisela Palacios MD [address] [place] [phone] Referral ID Status Reason Start Date Expiration Date V isits Requested Visits Authorized [id number] Pending Review 09/10/2023 09/09/2024 1 1 Referral ID Status Reason Start Date Expiration Date V isits Requested Visits Authorized [id number] Pending Review 06/11/2023 06/10/2024 1 1 Referral ID Status Reason Start Date Expiration Date V isits Requested Visits Authorized [id number] Pending Review 10/15/2023 10/14/2024 1 1 Referral ID Status Reason Start Date Expiration Date V isits Requested Visits Authorized [id number] Pending Review 10/15/2023 10/14/2024 1 1 Referral ID Status Reason Start Date Expiration Date V isits Requested Visits Authorized [id number] Pending Review 11/12/2023 11/11/2024 1 1 Referral ID Status Reason Start Date Expiration Date V isits Requested Visits Authorized [id number] Pending Review 07/09/2023 07/08/2024 1 1 Referral ID Status Reason Start Date Expiration Date V isits Requested Visits Authorized [id number] Pending Review 07/09/2023 07/08/2024 1 1 Specialty Diagnoses / Procedures Referred By Contac t Referred To Contact Rehabilitation Diagnoses Fall, initial encounter Osteoarthritis of multiple joints, unspecified osteoarthritis type Chapin Cast, COMPENSATION VICE PRESIDENT-CELLO TEACHER [address] [place] [address] Referral ID Status Reason Start Date Expiration Date Visits Requested Visits Authorized [id number] Pending Review Specialty Services Required 07/18/2023 07/17/2024 1 1 Referral ID Status Reason Start Date Expiration Date V isits Requested Visits Authorized [id number] Pending Review 12/11/2023 12/10/2024 1 1 Referral ID Status Reason Start Date Expiration Date V isits Requested Visits Authorized [id number] Pending Review 12/11/2023 12/10/2024 1 1 Specialty Diagnoses / Procedures Referred By Contac t Referred To Contact Diagnoses Spastic neurogenic bladder Procedures ASPIRATION BLADDER INSERT SUPRAPUBIC CATHETER Gisela Palacios MD [address] [place] [phone] Referral ID Status Reason Start Date Expiration Date V isits Requested Visits Authorized [id number] Pending Review 08/13/2023 08/12/2024 1 1 Specialty Diagnoses / Procedures Referred By Contac t Referred To Contact Diagnoses Spastic neurogenic bladder Procedures Urinary leg bag Gisela Palacios MD [address] [place] [phone] Referral ID Status Reason Start Date Expiration Date V isits Requested Visits Authorized [id number] Pending Review 08/13/2023 08/12/2024 1 1 Referral ID Status Reason Start Date Expiration Date V isits Requested Visits Authorized [id number] Pending Review 01/07/2024 01/06/2025 1 1 Referral ID Status Reason Start Date Expiration Date V isits Requested Visits Authorized [id number] Pending Review 01/07/2024 01/06/2025 1 1 Specialty Diagnoses / Procedures Referred By Contac t Referred To Contact Diagnoses Suprapubic catheter ([facility]) Procedures Urinary leg bag Annette Mills MD [address] [place] [id number] Referral ID Status Reason Start Date Expiration Date V isits Requested Visits Authorized [id number] Pending Review 01/27/2024 01/26/2025 1 1 Specialty Diagnoses / Procedures Referred By Contac t Referred To Contact Diagnoses Suprapubic catheter ([facility]) Procedures ASPIRATION BLADDER INSERT SUPRAPUBIC CATHETER Annette Mills MD [address] [place] [address] Referral ID Status Reason Start Date Expiration Date V isits Requested Visits Authorized [id number] Pending Review 01/27/2024 01/26/2025 1 1 Referral ID Status Reason Start Date Expiration Date V isits Requested Visits Authorized [id number] Pending Review 02/25/2024 02/24/2025 1 1 Referral ID Status Reason Start Date Expiration Date V isits Requested Visits Authorized [id number] Pending Review 02/25/2024 02/24/2025 1 1 Additional Source Comments Reason for Visit (unrecogniz ed section and content) Reason Onset Date Comments Pre-surgical Evaluation 09/20/2021 Pre-op C OVID testing not needed Reason Onset Date Comments Pre-surgical Evaluation 09/20/2021 Outside records received Reason Onset Date Comments Pre-surgical Evaluation 09/26/2021 DD adult dental restorations 09/29 under GA at [place]. OSH H+P under media director. Request to main for anesthesia consent - see future encounter. PSE RN spoke to [facility] confirmed NPO except clears until, [place] address, and 1100 arrival time. Reason Onset Date Comments Pre-surgical Evaluation 09/27/2021 ANESTHES [place] ATTESTATION FOR DENTAL SURGERY SCANNED IN Epic Reason Comments Med Refill Reason Comments Wound Care Igor Pereira is a 63 y.o. male who presents for wound care. Reason Comments Wound Care Igor Pereira is a 64 y.o. male who presents for Wound Care. Reason Comments Wound Care Igor Pereira is a 63 y.o. male who presents for Foot Wound Check. Pt presents today with his caregiver Evelyn for a wound check. Dressing was in place until Saturday01/11/24. Reason Comments Wound Care Igor Pereira is a 63 y.o. male who presents for Foot Wound Check. Pt presents today with his caregiver Alice for a wound check. Alice relates she is not sure how long the dressing stayed on and reports patients BL braces and shoes were on the wrong feet,when picked up today. Reason Comments Foot Wound Check Pt presents today fo r 2 week wound check. detention is using the mesalt dressings. Reason Comments Foot Ulcer Igor Pereira is a 64 y.o. male who presents for Wound Care. Reason Onset Date Comments Med Refill 05/22/2024 Reason Comments Wound care/Nail care Igor Pereira is a 64 y.o. male who presents for Wound Care. Reason Comments Bladder Problem Reason Comments Wound Care Igor Pereira is a 64 y.o. male who presents for Wound Care. Reason Comments Bladder Problem Reason Comments Bladder Problem Reason Comments Routine 3 month follow up Reason Onset Date Comments Med Refill 07/05/2023 Reason Comments routine follow up Reason Comments COVID 19 Reason Comments Follow-up Reason Comments Bladder Problem Reason Comments routine follow up Reason Comments Foot Ulcer Established pt prese nts today with his nurse Kathy for 1 month wound check, right foot. Reason Comments 3 month follow up visit (unrecognized sect ion and content) No Status Records FoundNo Status Records FoundNo Status Records FoundNo Status Records FoundNo Status Records FoundNo Status Records Found INFORMATION SOURCE (unrecogn ized section and content) DATE CREATED AUTHOR 11/03/2021 [facility] DATE CREATED AUTHOR AUTHOR'S ORGANIZ ATION 12/06/2022 [facility] DATE CREATED AUTHOR AUTHOR'S ORGANIZ ATION 03/13/[address] [facility] DATE CREATED AUTHOR AUTHOR'S ORGANIZ ATION 04/11/2024 [facility] DATE CREATED AUTHOR AUTHOR'S ORGANIZ ATION 06/30/2024 [facility] DATE CREATED AUTHOR AUTHOR'S ORGANIZ ATION 07/07/2024 [facility] dical Specialists [facility] Care Teams (unrecognized sec tion and content) Team Status: Active Member Role Status Dates Chapin Cast ELEMENTARY SCIENCE TEACHER-C Primary Care Provider Active Team Status: Inactive Member Role Status Dates Chapin Cast , ELEMENTARY SCIENCE TEACHER-C Primary Care Provider Active Start: January 09, 2024 End: January 09, 2024 Kandy Olson APRN Attending Provider Active Start: January 09, 2024 End: January 09, 2024 Web Development Director Relationship Specialty Start Date End Date Ricky Quintana MD [address] [place] [address] PCP - General Family Medicine 10/30/22 Chapin Cast CRNP [address] [place] [address] Referring Physician Nurse Practitioner 10/30/22 Web Development Director Relationship Specialty Start Date End Date Ricky Quintana MD [address] [place] [address] PCP - General Family Medicine 10/30/22 Chapin Cast CRNP [address] [place] [address] Referring Physician Nurse Practitioner 10/30/22 Web Development Director Relationship Specialty Start Date End Date Chapin Cast APRN-CELLO TEACHER [address] [place] [address] PCP - General Nurse Practitioner 03/19/17 Web Development Director Relationship Specialty Start Date End Date Ricky Quintana MD [address] [place] [address] PCP - General Family Medicine 10/30/22 Chapin Cast CRNP [address] [place] [address] Referring Physician Nurse Practitioner 10/30/22 Web Development Director Relationship Specialty Start Date End Date Ricky Quintana MD [address] [place] [address] PCP - General Family Medicine 10/30/22 Chapin Cast CRNP [address] [place] [address] Referring Physician Nurse Practitioner 10/30/22 Web Development Director Relationship Specialty Start Date End Date Chapin Cast COMPENSATION VICE PRESIDENT-CELLO TEACHER [address] [place] [address] PCP - General Nurse Practitioner 03/19/17 Web Development Director Relationship Specialty Start Date End Date Chapin Cast COMPENSATION VICE PRESIDENT-CELLO TEACHER [address] [place] [address] PCP - General Nurse Practitioner 03/19/17 Web Development Director Relationship Specialty Start Date End Date Chapin Cast COMPENSATION VICE PRESIDENT-CELLO TEACHER [address] [place] [address] PCP - General Nurse Practitioner 03/19/17 Web Development Director Relationship Specialty Start Date End Date Chapin Cast COMPENSATION VICE PRESIDENT-CELLO TEACHER [address] [place] [address] PCP - General Nurse Practitioner 03/19/17 Web Development Director Relationship Specialty Start Date End Date Chapin Cast [facility] [address], [place] [address] PCP - General Nurse Practitioner 03/19/17 Web Development Director Relationship Specialty Start Date End Date Chapin Cast [facility] [address], [place] [address] PCP - General Nurse Practitioner 03/19/17 Web Development Director Relationship Specialty Start Date End Date Chapin Cast [facility] [address], [place] [address] PCP - General Nurse Practitioner 03/19/17 Web Development Director Relationship Specialty Start Date End Date Chapin Cast [facility] [address], [place] [address] PCP - General Nurse Practitioner 03/19/17 Web Development Director Relationship Specialty Start Date End Date Chapin Cast [facility] [address], [place] [address] PCP - General Nurse Practitioner 03/19/17 Web Development Director Relationship Specialty Start Date End Date Chapin Cast [facility] [address], [place] [address] PCP - General Nurse Practitioner 03/19/17 Web Development Director Relationship Specialty Start Date End Date Chapin [facility] [address] [place] [address] PCP - General Nurse Practitioner 03/19/17 Web Development Director Relationship Specialty Start Date End Date Chapin Cast [facility] [address] [place] [address] PCP - General Nurse Practitioner 03/19/17 Web Development Director Relationship Specialty Start Date End Date Chapin Cast [facility] [address] [place] [address] PCP - General Nurse Practitioner 03/19/17 Web Development Director Relationship Specialty Start Date End Date Chapin Cast [facility] [address] [place] [address] PCP - General Nurse Practitioner 03/19/17 Web Development Director Relationship Specialty Start Date End Date Chapin Cast [facility] [address] [place] [address] PCP - General Nurse Practitioner 03/19/17 Web Development Director Relationship Specialty Start Date End Date Chapin Cast [facility] [address] [place] [address] PCP - General Nurse Practitioner 03/19/17 Goals (unrecognized section and content) Goals may be documented in a n alternate sectionGoals may be documented in an alternate sectionNot on filedocumented as of this encounterNot on filedocumented as of this encounterNot on filedocumented as of this encounterNot on filedocumented as of this encounterNot on filedocumented as of this encounterNot on filedocumented as of this encounterNot on filedocumented as of this encounterNot on filedocumented as of this encounterNot on filedocumented as of this encounterNot on filedocumented as of this encounterNot on filedocumented as of this encounterNot on filedocumented as of this encounterNot on filedocumented as of this encounterNot on filedocumented as of this encounterNot on filedocumented as of this encounterNot on filedocumented as of this encounterNot on filedocumented as of this encounterNot on filedocumented as of this encounterNot on filedocumented as of this encounterNot on filedocumented as of this encounterNot on filedocumented as of this encounterNot on filedocumented as of this encounterNot on filedocumented as of this encounterNot on filedocumented as of this encounterNot on filedocumented as of this encounterNot on filedocumented as of this encounterNot on filedocumented as of this encounterNot on filedocumented as of this encounterNot on filedocumented as of this encounterNot on filedocumented as of this encounterNot on filedocumented as of this encounterNot on filedocumented as of this encounterNot on filedocumented as of this encounterNot on filedocumented as of this encounterNot on filedocumented as of this encounterNot on filedocumented as of this encounterNot on filedocumented as of this encounter FOR RECORDS PERTAINING TO PATIENTS WHO ARE [...] BE BASED ON THE PRIMARY CLINICAL RECORDS. [facility]. provides no warranty or guarantee of the accuracy or completeness of information in this document.
[2024-07-15 12:36] LABS: Alanine Aminotransferase 22 U/L (16-63); Albumin Globulin Ratio 0.8; Alkaline Phosphatase 73 U/L (46-116); Aspartate Amino Transferase 23 U/L (15-37); Bilirubin Direct <0.1 mg/dL (0.0-0.2); Bilirubin Total 0.3 mg/dL (0.2-1.0); Globulin 3.9 g/dL; Total Protein 6.9 g/dL (6.4-8.2); Valproic Acid 50.8 ug/mL (50.0-100.0)
== END 2024-07-15 07:06 | disposition home or self-care (01) ==
LOC: LAB 07:07
PROVIDERS: PCP Nurse Practitioner; Visit Provider Psychiatry & Neurology Psychiatry
DX: F42.8 Other obsessive-compulsive disorder (principal); Z79.899 Other long term (current) drug therapy; F63.9 Impulse disorder, unspecified
CPT/HCPCS: 36415; 80076; 80164

== ENCOUNTER 2024-08-17 09:31 | Outpatient (OUT) | payer MEDICARE, MEDICAID, SELFPAY ==
--- NOTE | 2024-08-17 09:32 | XR_ITS ---
The [address] [address] Patient Name: URI VALLES MRN: [id number] date: 1960 Sex: M Assigned Patient Location: Current Patient Location: Accession/Order Number: [id number] Exam Date: 08/17/2024 10:11 Report Date: 08/17/2024 10:13 At the request of: MARIA LUISA LIAO MD Procedure: XR hand RT min 3V 3 views right hand plain film COMPARISON: Outside facility HISTORY: Acute right hand pain. Known fracture. ACUTE FINDINGS: Fourth middle phalanx fracture. Mild displacement. Mild comminution. DEGENERATIVE CHANGE: Moderate. Chronic changes with metacarpal. Question prior injury. SOFT TISSUE FINDINGS: Unremarkable JOINT EFFUSION: None POSTOP CHANGES: None BONY MINERALIZATION: Adequate XR/XR hand RT min 3V IMPRESSION: Right fourth of lateral phalanx fracture. Impression dictated by: Bryce Sagastume M.D.08/17/2024 10:13 AM Dictation Location: [place] [address] Electronically authenticated by: [id number] Y Date: 08/17/2024 10:13
== END 2024-08-17 09:32 | disposition home or self-care (01) ==
LOC: EC 09:31
PROVIDERS: PCP Nurse Practitioner; Visit Provider Orthopaedic Surgery
DX: M79.641 Pain in right hand (principal); S62.624A Displaced fracture of middle phalanx of right ring finger, initial encounter for closed fracture
CPT/HCPCS: 73130

== ENCOUNTER 2024-09-14 09:10 | Outpatient (OUT) | payer MEDICARE, MEDICAID, SELFPAY ==
--- NOTE | 2024-09-14 | XR_ITS ---
The [address] [address] Patient Name: URI VALLES MRN: [id number] date: 1960 Sex: M Assigned Patient Location: Current Patient Location: Accession/Order Number: [id number] Exam Date: 09/14/2024 15:24 Report Date: 09/14/2024 15:26 At the request of: MARIA LUISA LIAO MD Procedure: XR hand RT min 3V RIGHT HAND - 3 views REASON FOR EXAM: Follow-up fracture COMPARISON: Right hand 08/17/2024 FINDINGS: Middle phalanx fourth digit fracture without significant change in alignment with interval callus formation suggestive of healing response. XR/XR hand RT min 3V IMPRESSION: HEALING MIDDLE PHALANX FOURTH DIGIT FRACTURE. Impression dictated by: Uriel Coleman Jr., DRubaORuba 09/14/2024 3:26 PM Dictation Location: [place] [address] Electronically authenticated by: [id number] Y Date: 09/14/2024 15:26
== END 2024-09-14 09:11 | disposition home or self-care (01) ==
LOC: EC 09:10
PROVIDERS: PCP Nurse Practitioner; Visit Provider Orthopaedic Surgery
DX: S62.654D Nondisplaced fracture of middle phalanx of right ring finger, subsequent encounter for fracture with routine healing (principal)
CPT/HCPCS: 73130

== ENCOUNTER 2024-11-23 06:41 | Outpatient (OUT) | payer MEDICARE, MEDICAID, SELFPAY ==
--- OUTSIDE RECORDS SUMMARY | 2010-08-17 06:09 | XMS_ITS | Encounter Summary ---
Author Organization [facility] Address [address] [place] [address] Care Team Providers [employer] Name Role Phone Unavailable Primary Care Provider Unavailabl e Encounter Details Date Type Department Care Team (Late st Contact Info) Description 08/17/2010 6:09 AM EDT Hospital Encounter [facility] [address] [place] [id number] Yung Matos MD [address] [place] [address] Social History Tobacco Use Types Packs/Day Years Used Date Smoking Tobacco: Never Alcohol Use Standard Drinks/Week Comments No 0 (1 standard drink = 0.6 oz pur e alcohol) Sex and Gender Information Value Date Recorded Sex Assigned at Not on file Legal Sex Male 12:13 PM EST Gender Identity Not on file Sexual Orientation Not on file documented as of this encounter Plan of Treatment Not on file documented as of this encounter Visit Diagnoses Not on filedocumented in this encounter
--- OUTSIDE RECORDS SUMMARY | 2024-10-26 05:40 | XMS_ITS ---
Author Organization [facility] Address [address] [place] [address] Care Team Providers Care Pediatric Sports Medicine Specialist Name Role Phone Anders Sandoval Unavailable [phone] Allergies No Known Allergies REASON FOR VISIT RIGHT 4TH FINGER MIDDLE PHALANX FX Social History AUDIT-C (Standard) Question Answer Notes Did you have a drink containing alcohol in the p ast year? No Points 0 Interpretation Negative Vital Signs Height 5'2 in 10/26/2024 Weight 160 lbs 10/26/2024 BMI 29.26 10/26/2024 Encounters Encounter Location Date Provider Diagnosis [facility] Office [address] [facility] [address] [place] [address] [place] [address] 10/26/2024 Anders Sandoval Nondisplaced fractur e of middle phalanx of right ring finger, subsequent encounter for fracture with routine healing S62.654D Assessments Encounter Date Diagnosis (ICD Code) Assessment Notes Treatment Notes Treatment Clinical Notes Section Notes 10/26/2024 Nondisplaced fracture of middle phalanx of right ring finger, subsequent encounter for fracture with routine healing (ICD-10 - S62.654D) 10/26/2024 Other Patient is doing well. He will continue with activities as tolerated and follow-up here on an as-needed basis. Import medication Plan Of Treatment Treatment Notes Assessment Notes Other Patient is doing well. He will continue with activities as tolerated and follow-up here on an as-needed basis. Import medication Pending Test Test Name Order Date SCC- HAND 3 VIEW RIGHT [id number] 10/26/2024 Next Appt Details Follow Up: prn, Reason: Progress Notes * URI VALLESDOB: 2 (64 yo M)Acc No.[id number]:10/26/2024 Patient: URI NARANJO Provider: Inez Sandoval MD :1960 A ge:64 Y S ex:Male Date:10/26/2024 Address:[address] [place], [place] [address], [id number] Subjective: * Chief Complaints: * 1 . RIGHT 4TH FINGER MIDDLE PHALANX FX. * HPI: G eneral Follow Up Information: Patient presents today for follow-up of his right fourth finger middle phalanx fracture doing well. His physician's aide reports he has been using the crutches and not having any problems. * Medical History: K idney trouble. * Family History: N o Family History documented.. * Social History: A SOFYA-C (Standard) D id you have a drink containing alcohol in the past year? N o,�Points 0 , I nterpretation N egative. * Medications: N one * Allergies: N .K.D.A. Objective: * Vitals: H t: 5'2 , Wt: 160 lbs, BMI:29.26. * Examination: G eneral examination: E xamination today of his right ring finger reveals normal alignment. Very minimal swelling. Full finger range of motion. No obvious tenderness to palpation. X -ray Imaging Studies: 3 view x-rays of his right ring finger obtained today in clinic and interpreted by myself show the middle phalanx fracture in good alignment. Significant callus formation is present fracture line is getting more difficult to visualize. Assessment: * Assessment: 1. N ondisplaced fracture of middle phalanx of right ring finger, subsequent encounter for fracture with routine healing - S62.654D (Primary) Plan: * Treatment: 2. O thers Notes: Patient is doing well. He will continue with activities as tolerated and follow-up here on an as-needed basis. Import medication * Procedure Codes: 7 3130 X-ray Hand, 3 view, Modifiers: RT * Follow Up: p rn Forms: * Images: * Electronic signature of Júnior Sandoval MD on 11/23/2024 at 06:46 AM EDT Sign off status: Pending * Provider: Inez Sandoval MD Date: 0 10/26/2024 Generated for Celia peña/Ranjeet/eTransmitting on: 0 11/23/2024 06:46 AM EDT History and Physical Notes * HPI (History of Present Illness) Category Sub-Category Detail Notes Category Not es General Follow Up Information Patient presents tod ay for follow-up of his right fourth finger middle phalanx fracture doing well. His physician's aide reports he has been using the crutches and not having any problems. Examination Category Sub-Category Detail Notes Category Not es General examination Examinat ion today of his right ring finger reveals normal alignment. Very minimal swelling. Full finger range of motion. No obvious tenderness to palpation. X-ray Imaging Studies 3 view x-rays of his right ring finger obtained today in clinic and interpreted by myself show the middle phalanx fracture in good alignment. Significant callus formation is present fracture line is getting more difficult to visualize
--- OUTSIDE RECORDS SUMMARY | 2024-11-17 10:30 | XMS_ITS | Encounter Summary ---
Author Organization [employer] tem Address [id number] [address] [place] [address] Care Team Providers Care Director Volunteer Services Name Role Phone CastNeLyla Enrique ZAIDIN-PROGRAM HOST Primary Care Provid er Reason for Referral * Misc (Routine) - Authorized Specialty Diagnoses / Procedures Referred By Contac t Referred To Contact Diagnoses Suprapubic catheter ([facility]) Procedures ASPIRATION BLADDER INSERT SUPRAPUBIC CATHETER Vincenzo Palacios MD [address] [place] [address] Phone: tel: fax: Referral ID Status Reason Start Date Expiration Date V isits Requested Visits Authorized [id number] Authorized 11/17/2024 11/17/2025 1 1 * Misc (Routine) - Authorized Specialty Diagnoses / Procedures Referred By Contac t Referred To Contact Diagnoses Suprapubic catheter ([facility]) Procedures Urinary leg bag Vincenzo Palacios MD [address] [place] [address] Phone: tel: fax: Referral ID Status Reason Start Date Expiration Date V isits Requested Visits Authorized [id number] Authorized 11/17/2024 11/17/2025 1 1 Reason for Visit * Reason Comments Bladder Problem Encounter Details Date Type Department Care Team (Latest Contact Info) Description 11/17/2024 10:30 AM EDT Clinical Support [facility] [address] [place] [address] [place] [address] [place] [address] Vincenzo Palacios MD [address] [place] [id number] Suprapubic catheter ([facility]) (Primary Dx) Social History Tobacco Use Types Packs/Day Years Used Date Smoking Tobacco: Never Smokeless Tobacco: Never Alcohol Use Standard Drinks/Week Comments No 0 (1 standard drink = 0.6 oz pur e alcohol) PHQ-2 Answer Date Recorded Total Score 0 10/25/2023 Childcare Answer Date Recorded Childcare Unknown 10/28/2018 Employment Answer Date Recorded Employment Unknown 10/28/2018 Hunger Screening Answer Date Recorded Within the past 12 months we worried whether our food would run out before we got money to buy more. Never True 10/13/2024 Within the past 12 months th e food we bought just didn't last and we didn't have money to get more. Never True 10/13/2024 Purpose - Life Answer Date Recorded Purpose and direction in life Unknown Sex and Gender Information Value Date Recorded Sex Assigned at Not on file Legal Sex Male 11:23 AM EDT Gender Identity Not on file Sexual Orientation Not on file documented as of this encounter Plan of Treatment Upcoming Encounters Date Type Department Care Team (Late st Contact Info) Description 12/28/2024 10:00 AM EDT Support Visit [facility] [address] [place] [address] [place] [address] [place] [address] Imer Luna MD [address] [place] [phone] Scheduled Orders Name Type Priority Associated Diagnoses Orde r Schedule ASPIRATION BLADDER INSERT SUPRAPUBIC CATHETER Procedures Routine Suprapubic catheter ([facility]) Expected: 11/17/2024, Expires: 11/17/2025 documented as of this encounter Visit Diagnoses Diagnosis Suprapubic catheter (CMS-HCC)- Primary Other cystostomy status documented in this encounter Additional Health Concerns Assessment Noted Time PHQ-9 Depression Total Score: 0 10/25/19 24 7:00 AM EDT A Body Mass Index follow-up plan has been documented for the patient 10/25/2022 6:43 AM EDT documented as of this encounter Care Teams Director Volunteer Services Relationship Specialty Start Date End Date Lyla Cast, DONNY-PROGRAM HOST PCP - General Nurse Practitioner 03/19/17 documented as of this encounter
--- OUTSIDE RECORDS SUMMARY | 2024-11-18 10:35 | XMS_ITS ---
Author Name Auto Generated Organization OHIP Support Name Relationship Address Phone [place] Next of Kin Unknown [phone] MADIMARIELNOEMICASANDRA Next of Kin Unknown [phone] [place] Next of Kin Unknown [phone] CASANDRA EDWARDS Next of Kin Unknown [phone] RUCASANDRA FLOYD Next of Kin Unknown [phone] [place], [place] Next of Kin Unknown [phone] CASANDRA EDWARDS Next of Kin Unknown [phone] [place], [place] Next of Kin Unknown [phone] [place] Next of Kin Unknown [phone] CASANDRA EDWARDS Next of Kin Unknown [phone] Aylin Valles Next of Kin Unknown [phone] Brianne Valles Next of Kin Unknown [phone] [place], [place] Next of Kin Unknown [phone] CASANDRA EDWARDS Next of Kin Unknown [phone] CASANDRA EDWARDS Next of Kin Unknown [phone] [place] Next of Kin Unknown [phone] CASANDRA EDWARDS Next of Kin Unknown [phone] [place] Next of Kin Unknown [phone] AYLIN VALENCIA Next of Kin Unknown [phone] AYLIN VALENCIA Next of Kin Unknown [phone] CASADNRA EDWARDS Next of Kin Unknown [phone] [place], [place] Next of Kin Unknown [phone] [place] Next of Kin Unknown [phone] [place] Next of Kin Unknown [phone] GILMOR, AYLIN Next of Kin Unknown [phone] GILMOR, AYLIN Next of Kin Unknown [phone] RUHLEN, CASANDRA Next of Kin Unknown [phone] GILMOR, AYLIN Next of Kin Unknown [phone] GILMOR, AYLIN Next of Kin Unknown [phone] RUHLEN, CASANDRA Next of Kin Unknown [phone] GILMOR, AYLIN Next of Kin Unknown [phone] GILMOR, AYLIN Next of Kin Unknown [phone] RUHLEN, CASANDRA Next of Kin Unknown [phone] GILMOR, AYLIN Next of Kin Unknown [phone] GILMOR, AYLIN Next of Kin Unknown [phone] RUHLEN, CASANDRA Next of Kin Unknown [phone] [place] Next of Kin Unknown [phone] GILMOR, AYLIN Next of Kin Unknown [phone] GILMOR, YALIN Next of Kin Unknown [phone] RUHLEN, CASANDRA Next of Kin Unknown [phone] GILMOR, AYLIN Next of Kin Unknown [phone] GILMOR, AYLIN Next of Kin Unknown [phone] RUHLEN, CASANDAR Next of Kin Unknown [phone] GILMOR, AYLIN Next of Kin Unknown [phone] GILMOR, AYLIN Next of Kin Unknown [phone] RUHLEN, CASANDRA Next of Kin Unknown [phone] [place] Next of Kin Unknown [phone] GILMOR, AYLIN Next of Kin Unknown [phone] GILMOR, AYLIN Next of Kin Unknown [phone] MADIHLSINA GIVENSIE Next of Kin Unknown [phone] [place], [place] Next of Kin Unknown [phone] [place] Next of Kin Unknown [phone] GILMOR, AYLIN Next of Kin Unknown [phone] GILMOR, AYLIN Next of Kin Unknown [phone] RUHLSINA GIVENSIE Next of Kin Unknown [phone] [place] Next of Kin Unknown [phone] GILMOR, AYLIN Next of Kin Unknown [phone] GILMOR, AYLIN Next of Kin Unknown [phone] MADIHLSINA GIVENSIE Next of Kin Unknown [phone] GILMOR, AYLIN Next of Kin Unknown [phone] GILMOR, AYLIN Next of Kin Unknown [phone] NONI BRODERICK Next of Kin Unknown [phone] GILMOR, AYLIN Next of Kin Unknown [phone] GILMOR, AYLIN Next of Kin Unknown [phone] NONI BRODERICK Next of Kin Unknown [phone] [place] Next of Kin Unknown [phone] [place] Next of Kin Unknown [phone] [place] Next of Kin Unknown [phone] GILMOR, AYLIN Next of Kin Unknown [phone] GILMOR, AYLIN Next of Kin Unknown [phone] NONI BRODERICK Next of Kin Unknown [phone] [place], [place] Next of Kin Unknown [phone] GILMOR, AYLIN Next of Kin Unknown [phone] GILMOR, AYLIN Next of Kin Unknown [phone] NONI BRODERICK Next of Kin Unknown [phone] HOME, [place] Next of Kin Unknown [phone] HOME, [place] Next of Kin Unknown [phone] Care Team Providers Care Scrap Bunch Maker Name Role Phone YISSEL CASTE J Referring Unavailable CAST, CHAPIN J Primary Care Unavailable GISELA GONZALEZ Attending Unavailable CAST, CHAPIN J Referring Unavailable CAST, CHAPIN J Primary Care Unavailable CELIO CALI Attending Unavailable CAST, CHAPIN J Primary Care Unavailable CELIO CALI Referring Unavailable CAST, CHAPIN Enrique Referring Unavailable CAST, CHAPIN J Primary Care Unavailable GISELA GONZALEZ Attending Unavailable CAST, CHAPIN J Referring Unavailable CAST, CHAPIN J Primary Care Unavailable CAST, CHAPIN J Attending Unavailable CAST, CHAPIN J Referring Unavailable CAST, CHAPIN J Primary Care Unavailable ANNETTE MILLS Attending Unavailable CAST, CHAPIN J Referring Unavailable CAST, CHAPIN J Primary Care Unavailable GISELA GONZALEZ Attending Unavailable CAST, CHAPIN J Referring Unavailable CAST, CHAPIN J Primary Care Unavailable GISELA GONZALEZ Attending Unavailable CAST, CHAPIN J Referring Unavailable CAST, CHAPIN J Primary Care Unavailable CELIO CAIL Attending Unavailable CAST, CHAPIN J Primary Care Unavailable CAST, CHAPIN J Referring Unavailable ANNETTE MILLS Attending Unavailable CAST, CHAPIN Enrique Primary Care Unavailable CAST, CHAPIN J Referring Unavailable CAST, CHAPIN J Attending Unavailable CAST, CHAPIN J Primary Care Unavailable CAST, CHAPIN J Referring Unavailable CAST, CHAPIN J Attending Unavailable CAST, CHAPIN J Referring Unavailable CAST, CHAPIN J Primary Care Unavailable CAST, CHAPIN J Primary Care Unavailable CAST, CHAPIN J Referring Unavailable GISELA GONZALEZ Attending Unavailable CAST, CHAPIN J Referring Unavailable CAST, CHAPIN J Primary Care Unavailable GISELA GONZALEZ Attending Unavailable CAST, CHAPIN J Referring Unavailable CAST, CHAPIN J Primary Care Unavailable ANNETTE MILLS Attending Unavailable CAST, CHAPIN Enrique Referring Unavailable CAST, CHAPIN J Primary Care Unavailable CELIO CALI Attending Unavailable CAST, CHAPIN J Referring Unavailable CAST, CHAPIN J Primary Care Unavailable LISA, GISELA Andrade Attending Unavailable CAST, CHAPIN J Referring Unavailable CAST, CHAPIN J Primary Care Unavailable LISA, GISELA G Attending Unavailable CAST, CHAPIN J Referring Unavailable CAST, CHAPIN J Primary Care Unavailable LISA, GISELA G Attending Unavailable CAST, CHAPIN J Referring Unavailable CAST, CHAPIN J Primary Care Unavailable KARELYCELIO OCHOA Attending Unavailable CAST, CHAPIN J Referring Unavailable CAST, CHAPIN J Primary Care Unavailable LISA, GISELA G Attending Unavailable CAST, CHAPIN J Referring Unavailable CAST, CHAPIN J Primary Care Unavailable LISA, GISELA Andrade Attending Unavailable Cast, Chapin J Primary Care Unavailable Jaky Adames Attending Unavailable Jaky Adames Admitting Unavailable RUSHER, MARIA LUISA A Attending Unavailable [...] Unavailable RUSHER, MARIA LUISA A Attending Unavailable PROBLEMS DATE TYPE CONDITION / CODE ATTENDING STATUS [facility] 08/03/2024 Unknown Pain in right edgar nd / M79.641(ICD-10) Jaky Adames [facility] 10/16/2022 Unknown Other neuromuscu lar dysfunction of bladder / N31.8(ICD-10) GISELA GONZALEZ [facility] 04/08/2024 Unknown Essential (prima ry) hypertension / I10(ICD-10) CHAPIN CAST Active [facility] 04/08/2024 Unknown Encounter for screening for other viral diseases / Z11.59(ICD-10) CHAPIN CAST [facility] 04/03/2024 Unknown Encounter for immunization / Z23(ICD-10) CHAPIN CAST [facility] 03/12/2024 Unknown Other mcfp (current) drug therapy / Z79.899(ICD-10) KARELYCELIO OCHOA [facility] 04/11/2017 Unknown Other cystostomy status / Z93.59(ICD-10) LISA GISELA Andrade [facility] 02/25/2024 Unknown Follow-up / FREETEXT(AOF) LANA GONZALEZOTHY Raymond [facility] 07/23/2022 Unknown Other obsessive-compulsive disorder / F42.8(ICD-10) CELIO CALI [facility] 01/10/2017 Unknown Unspecified intellectual disabilities / F79(ICD-10) KARELYCELIO OCHOA [facility] 01/10/2017 Unknown Impulse disorder , unspecified / F63.9(ICD-10) CELIO CALI [facility] 12/10/2023 Unknown Bladder Problem / FREETEXT(AOF) LANA GONZALEZOTHY Raymond [facility] PROCEDURES No Procedure Records Found RESULTS XR HAND RT MIN 3V* Observed: 08/03/2024 11:05 AM Status: COMPLETED Source: [facility] [address] XRay Report Signed Patient: Uri Valles MR#: [id number] : 1960 Acct:[id number] Age/Sex: 64 / M ADM Date: 08/03/24 Loc: XDUCLY Room: Type: [facility] Attending Dr: Jaky Adames APRN Copies to: Jaky Adames APRN Ordering Provider: aJky Adames APRN Date of Service: 08/03/24 XR/XR hand RT min 3V*: M79.641 - Pain in right hand RIGHT HAND - 5 views REASON FOR EXAM: Swelling bruising right third fourth and fifth metacarpals. COMPARISON: None FINDINGS: There appears be a mildly displaced fracture involving the middle phalanx of the fourth digit. Positioning is suboptimal. There is associated soft tissue swelling. XR/XR hand RT min 3V* IMPRESSION: SUBOPTIMAL STUDY. THERE APPEARS TO BE A MILDLY DISPLACED FRACTURE INVOLVING THE MIDDLE PHALANX OF THE FOURTH DIGIT. Impression dictated by: Uriel Coleman Jr., D.O.08/03/2024 11:07 AM Dictation Location: RADIO-PC-22 Transcribed By: PWS 08/03/24 110 Dictated By: Uriel Coleman Jr, DO 08/03/241104 Signed By: <Electronically signed by Uriel Coleman Jr, DO in OV> 08/03/241106 CBC AND AUTO DIFF Collected: 04/08/2024 8:44 AM Status: COMPLETED Source: [facility] TYPE CODE TESTS RESULT OUT OF RANGE REFERENCE UNITS LAB WBC(LOINC) WBC COUNT 7.5 4.0-11.0 X10E9/L LAB RBC(LOINC) RBC COUNT 4.02 Low 4.10-5.70 X10E12/L LAB HGB(LOINC) HEMOGLOBIN 12.8 Low 13.0-17.0 g/dL LAB HCT(LOINC) HEMATOCRIT 37.0 Low 39-49 % LAB MCV(LOINC) MCV 92 80-100 fL LAB MCH(LOINC) MCH 31.8 27-34 pg LAB MCHC(LOINC) MCHC 34.5 32-36 g/dL LAB RDW(LOINC) RDW 14.4 11.5-15.0 % LAB PLTC(LOINC) PLATELET COUNT 149 Low 150-450 X10E9 /L LAB MPV(LOINC) MPV 10.0 7-12 fL LAB NEUTM(LOINC) SEG NEUTROPHIL 65.6 % LAB LYMM(LOINC) LYMPHOCYTE 17.6 % LAB MONOM(LOINC) MONOCYTE 11.8 % LAB EOSM(LOINC) EOSINOPHIL 2.0 % LAB BASOM(LOINC) BASOPHIL 1.0 % LAB LREAC(LOINC) LYMPHOCYTE, ATYPICAL 2.0 % LAB ANEUTM(LOINC) ABSOLUTE NEUTROPHILS 4.9 1.5-6.6 X10E9/L LAB ALYMM(LOINC) ABSOLUTE LYMPHOCYTE 1.5 1.0-3.5 X10E9/L LAB AMONOM(LOINC) ABSOLUTE MONOCYTES 0.9 0-0.9 X10E9/L LAB AEOSM(LOINC) ABSOLUTE EOSINOPHIL 0.2 0.0-0.4 X10E9/L LAB ABASOM(LOINC) ABSOLUTE BASOPHIL 0.1 0.0-0.2 X10E9/L LAB JOSE(LOINC) JOSE 1+ Abnormal NONE Performed By: #### HETAL DICK , 37383-5 #### [facility] ([id number]) [address] [place] [address], [address] [place] [address] BASIC METABOLIC PANL Collected: 04/08/2024 8:44 AM Status: COMPLETED Source: [facility] TYPE CODE TESTS RESULT OUT OF RANGE REFERENCE UNITS LAB NA(LOINC) SODIUM 139 134-146 mmol/L LAB K(LOINC) POTASSIUM 4.2 3.5-5.0 mmol/L LAB CL(LOINC) CHLORIDE 103 98-109 mmol/L LAB CO2(LOINC) CARBON DIOXIDE 27 22-32 mmol/L LAB AGAP(LOINC) ANION GAP 9 5-15 mmol/L LAB BUN(LOINC) BLOOD UREA NITROGEN 23 5-27 mg/dL LAB CRET(LOINC) CREATININE 1.07 0.60-1.30 mg/dL Result Comment: METHOD TRACE ABLE TO IDMS STANDARD LAB GLU(LOINC) GLUCOSE 68 65-99 mg/dL LAB CA(LOINC) CALCIUM 9.2 8.5-10.5 mg/dL LAB EGFR(LOINC) eGFR (CKD-EPI) NON-RACE DEPENDENT 78 >59 ml/min/1. 73sq.m Result Comment: Reported eGFR is based on the CKD-EPI 2020 equation that does not use a race coefficient. Performed By: #### KAPIL, HETAL , 72993-2 #### [facility] ([id number]) [address] [place] [address], [address] [place] [address] ANTI HCV W/PCR REFLX Collected: 04/08/2024 8:44 AM Status: COMPLETED Source: [facility] TYPE CODE TESTS RESULT OUT OF RANGE REFERENCE UNITS LAB HCV(LOINC) ANTI HCV W/PCR REFLX Nonreactive (qualifier value) NRCT Result Comment: If recent infection suspected, recommend repeat testing (>2 months). Adrsdz-vz-hlpcjg ratio is <0.80. Performed By: #### CBCA, BMP , 25753-0 #### [facility] ([id number]) [address] [place] [address], [address] [place] [address] VALPROIC ACID Collected: 01/07/2024 10:06 AM Status: COMPLETED Source: [facility] TYPE CODE TESTS RESULT OUT OF RANGE REFERENCE UNITS LAB VALP(LOINC) VALPROIC ACID 50 50-100 ug/mL Performed By: #### 4086-5 ## ## [facility] ([id number]) [address] [place] [address], [address] [place] [address] ALLERGIES DATE TYPE / CODE NAME / CODE REACTION SEVERITY SOURCE 08/03/2024 Drug Allergy/1489419 02(SNOMED CT) No Known Allergies/I452643252 (RXNORM) Unknown [facility] Drug Class/658301550 (SNOMED CT) NO KNOWN ALLERGIES [facility] ENCOUNTERS ADMIT/DISCHARGE ACCOUNT NUMBER ADMITTING ENCOUNTER CLASS LOCATION SOURCE 11/18/2024/11/19/19 [id number] Ambulatory Building:[facility] 11/17/2024/11/18/19 25 [id number] Ambulatory Buildin 24 [facility] 10/28/2024/10/29/19 [id number] Ambulatory Building:[facility] 10/13/2024/10/14/19 25 [id number] Ambulatory Buildin 24 [facility] 10/13/2024/10/14/19 25 [id number] Ambulatory Building:[facility] 10/01/2024/10/02/19 [id number] Ambulatory Building:[facility] 09/15/2024/09/16/19 25 [id number] Ambulatory Buildin 24 [facility] 09/10/2024/09/11/19 25 [id number] Ambulatory Building:[facility] 08/19/2024/08/20/19 25 [id number] Ambulatory Building:[facility] 08/18/2024/08/19/19 25 [id number] Ambulatory Buildin 24 [facility] 08/03/2024/08/04/19 [id number] Jaky Adames [facility] 07/27/2024/07/28/19 [id number] Ambulatory Building:[facility] 07/21/2024/07/22/19 25 [id number] Ambulatory Buildin 24 [facility] 07/14/2024/07/14/19 25 [id number] Ambulatory Building:[facility] 07/06/2024/07/06/19 [id number] Ambulatory Building:[facility] 06/29/2024/06/29/19 25 [id number] Ambulatory Buildin 24 [facility] 06/15/2024/06/15/19 25 [id number] Ambulatory Building:[facility] 06/09/2024/06/09/19 25 [id number] Ambulatory Buildin 24 [facility] 05/27/2024/05/27/19 25 [id number] Ambulatory Building:[facility] 05/07/2024/05/07/20 24 [id number] Ambulatory Building:[facility] 04/20/2024/04/20/20 24 [id number] Ambulatory Building:[facility] 04/14/2024/04/14/20 24 [id number] Ambulatory Buildin 24 [facility] 04/08/2024/04/08/20 24 [id number] Ambulatory Building:[facility] 04/08/2024/04/08/20 24 [id number] Ambulatory Buildin 91 [facility] 04/03/2024/04/03/20 24 [id number] Ambulatory Buildin 91 [facility] 03/31/2024/03/31/20 24 [id number] Ambulatory Building:[facility] 03/25/2024/03/25/20 24 [id number] Ambulatory Buildin 24 [facility] 03/12/2024/03/12/20 24 [id number] Ambulatory Building:[facility] 03/10/2024/03/10/20 24 [id number] Ambulatory Buildin 24 [facility] 02/28/2024/02/28/20 24 [id number] Ambulatory Building:[facility] 02/25/2024/02/25/20 24 [id number] Ambulatory Buildin 24 [facility] 02/07/2024/02/07/20 24 [id number] Ambulatory Building:[facility] 01/28/2024/01/28/20 24 [id number] Ambulatory Building:[facility] 01/27/2024/01/27/20 24 [id number] Ambulatory Buildin 24 [facility] 01/13/2024/01/13/20 24 [id number] Ambulatory Building:[facility] 01/10/2024/01/10/20 24 [id number] Ambulatory Buildin 91 [facility] 01/07/2024/01/07/20 24 [id number] Ambulatory Buildin 24 [facility] 01/07/2024/01/07/20 24 [id number] Ambulatory Building:[facility] 01/03/2024/01/03/20 24 [id number] Ambulatory Building:[facility] 12/27/2023/12/27/19 24 [id number] Ambulatory Building:[facility] 12/20/2023/12/20/19 24 [id number] Ambulatory Building:[facility] 12/20/2023/12/20/19 24 [id number] Ambulatory Building:[facility] 12/13/2023/12/13/19 24 [id number] Ambulatory Building:[facility] 12/10/2023/12/10/19 24 [id number] Ambulatory Buildin 24 [facility] 12/05/2023/12/05/19 24 [id number] Ambulatory Building:[facility] 11/26/2023/11/26/19 24 [id number] Ambulatory Building:[facility] PAYERS ENCOUNTER GUARANTOR PAYER SUBSCRIBER SOURCE 11/18/2024 URI Andrade RADHAERERDOB: [place] [address]Grg: (HP) Primary Insurance:MEDICAREPol icy Number: [id number] Date:3947-71-72Yccn Name:Medicare URI Andrade RADHAERERDOB: [id number] [place] [address] [facility] 11/18/2024 Secondary Insurance[place]: [id number] Date:2020-11-17 URI Andrade RADHAERERDOB: [id number] [place] [address] [facility] 11/17/2024 URI Andrade RADHAERERDOB: [place], [place] [address]Dyb: (HP) Primary Insurance:MEDICARE PART A & BPolicy Number: [id number] Date:1997-11-17 URI Andrade RADHAERERDOB: [id number] [facility], [place] [address]Ugz: (HP) [facility] 11/17/2024 Secondary Insurance:[place] MED[place]IDPolicy Number: [id number] Date:2016-04-10 URI Andrade RADHAERERDOB: [id number] [place], [place] [address]Xef: (HP) [facility] 10/28/2024 URI MESARDOB: [place] [address]Uck: (HP) Primary Insurance:MEDICAREPol icy Number: [id number] Date:5124-58-24Hgrk Name:Medicare URI MESARDOB: [id number] [place] [address] [facility] 10/28/2024 Secondary Insurance[place]: [id number] Date:2020-11-17 URI MESARDOB: [id number] [place] [address] [facility] 10/13/2024 URI MESARDOB: [facility] [place] [address]Erx: () Primary Insurance:MEDICARE PART A & BPolicy Number: [id number] Date:1997-11-17 URI GARCIAERERDOB: [id number] [place] [address]Ihx: () [facility] 10/13/2024 Secondary Insurance:[place] MED[place]Policy Number: [id number] Date:2016-04-10 URI MESARDOB: [id number] [place] [address]Qqp: (HP) [facility] 10/13/2024 URI MESARDOB: [place] [address]Ady: (HP) Primary Insurance:MEDICARE PART A & BPolicy Number: [id number] Date:1997-11-17 URI GARCIAERERDOB: [id number] [place] [address]Uam: (HP) [facility] 10/13/2024 Secondary Insurance:[place] MED[place] Number: [id number] Date:2016-04-10 URI MESARDOB: [id number] [place] [address]Bbk: (HP) [facility] 10/01/2024 URI Andrade RADHAANTHONYRDOB: [place] [address]Ffy: (HP) Primary Insurance:MEDICAREPol icy Number: [id number] Date:1457-91-97Ibya Name:Medicare URI MESARDOB: [id number] [place] [address] [facility] 10/01/2024 Secondary Insurance[place] Number: [id number] Date:2020-11-17 URI Andrade RADHAANTHONYRDOB: [id number] [place] [address] [facility] 09/15/2024 URI Andrade RADHAANTHONYRDOB: [facility] [place] [address]Kye: (HP) Primary Insurance:MEDICARE PART A & BPolicy Number: [id number] Date:1997-11-17 URI Andrade RADHAANTHONYRDOB: [id number] [place] [address]Tap: (HP) [facility] 09/15/2024 Secondary Insurance:[place] MED[place]Policy Number: [id number] Date:2016-04-10 URI MESARDOB: [id number] [place] [address]Xsp: (HP) [facility] 09/10/2024 URI Andrade BONITARDOB: [place] [address]Yxe: (HP) Primary Insurance:MEDICAREPol icy Number: [id number] Date:8707-89-22Cgmy Name:Medicare URI GARCIAERERDOB: [id number] [place] [address] [facility] 09/10/2024 Secondary Insurance[place] Number: [id number] Date:2020-11-17 URI Andrade NADERERDOB: [id number] [place] [address] [facility] 08/19/2024 URI GARCIAERERDOB: [place] [address]Pyt: (HP) Primary Insurance:MEDICAREPol icy Number: [id number] Date:9701-18-42Tirv Name:Medicare URI GARCIAERERDOB: [id number] [place] [address] [facility] 08/19/2024 Secondary Insurance[place]: [id number] Date:2020-11-17 URI MESARDOB: [id number] [place] [address] [facility] 08/18/2024 URI GARCIAERERDOB: [facility] [place] [address]Mte: (HP) Primary Insurance:MEDICARE PART A & BPolicy Number: [id number] Date:1997-11-17 URI MESARDOB: [id number] [facility], [place] [address]Rry: (HP) [facility] 08/18/2024 Secondary Insurance:[place] MEDICAIDPolicy Number: [id number] Date:2016-04-10 URI Andrade NADERERDOB: [id number] [facility] [place], [place] [address]Mlb: (HP) [facility] 08/03/2024 [address] Mes[address] [place] [address]Vhd: (HP) Primary Insurance:MedicarePol icy Number: [id number] Date:2024-08-03 Uri Andrade RadhaanthonyrDOB: [id number] [place] [address]Hcr: (HP) [facility] 08/03/2024 Secondary Insurance:MedicaidPol icy Number: [id number] Date:2024-08-03 Uri Andrade BonitarDOB: [id number] [place] [address]Qjf: (HP) [facility] 08/03/2024 Tertiary Insurance:Self PayPolicy Number: Effective Date:2024-08-03 [facility] URI Andrade BONITARDOB: [place] [address]Yrf: (HP) Primary Insurance:MEDICAREPol icy Number: [id number] Date:[id number] Name:Medicare URI Andrade BONITARDOB: [id number] [place] [address] [facility] EPIC 07/27/2024 Secondary [place]: [id number] Date:2020-11-17 URI Andrade BONITARDOB: [id number] [place] [address] [facility] EPIC 07/21/2024 URI Andrade BONITARDOB: S [facility] [address]Vfw: (HP) Primary Insurance:MEDICARE PART A & BPolicy Number: [id number] Date:1997-11-17 URI MESARDOB: [id number] [address] [facility], [place] [address]Osd: (HP) [facility] 07/21/2024 Secondary Insurance:[place] MEDICAIDPolicy Number: [id number] Date:2016-04-10 URI MESARDOB: [id number] [address] [facility], [place] [address]Vcb: (HP) [facility] 07/14/2024 URI GASTONOB: [address] [facility] [place] [address]Frv: (HP) Primary Insurance:MEDICARE PART A & BPolicy Number: [id number] Date:1997-11-17 URI GASTONOB: [id number] [address] [facility], [place] [address]Qqb: (HP) [facility] 07/14/2024 Secondary Insurance:[place] MEDICAIDPolicy Number: [id number] Date:2016-04-10 URI GASTONOB: [id number] [address] [facility], [place] [address]Vjx: (HP) [facility] 07/06/2024 URI MESARDOB: [place] [address]Yfp: (HP) Primary Insurance:MEDICAREPol icy Number: [id number] Date:1518-19-95Svhm Name:Medicare URI GASTONOB: [id number] [place] [address] [facility] 07/06/2024 Secondary Insurance:[place]: [id number] Date:2020-11-17 URI Andrade NADERERDOB: [id number] [place] [address] [facility] EPIC 06/29/2024 URI Andrade NADERERDOB: [address] [facility] [address]Ywq: (HP) Primary Insurance:MEDICARE PART A & BPolicy Number: [id number] Date:1997-11-17 URI Andrade NADERERDOB: [id number] [address] [facility], [place] [address]Ufh: (HP) [facility] 06/29/2024 [place] Insurance[place] MEDICA[place]Policy Number: [id number] Date:2016-04-10 URI Andrade RADHAERERDOB: [id number] [address] [facility], [place] [address]Yla: (HP) [facility] 06/15/2024 URI Andrade RADHAERERDOB: [place] [address]Ezd: (HP) Primary Insurance:MEDICAREPol icy Number: [id number] Date:1477-95-79Szik Name:Medicare URI MESARDOB: [id number] [place] [address] [facility] EPIC 06/15/2024 Secondary Insurance[place]: [id number] Date:2020-11-17 URI Andrade NADERERDOB: [id number] [place] [address] [facility] EPIC 06/09/2024 URI Andrade RADHAANTHONYRDOB: [address] [facility] [address]Wzi: (HP) Primary Insurance:MEDICARE PART A & BPolicy Number: [id number] Date:1997-11-17 URI Andrade RADHAERERDOB: [id number] [address] [facility] [place] [place] [address]Irt: (HP) [facility] 06/09/2024 [place] Insurance[place] MEDICAIDPolicy Number: [id number] Date:2016-04-10 URI Andrade NADERERDOB: [id number] [address] [facility] [place] [address]Qlj: (HP) [facility] 05/27/2024 URI Andrade NADERERDOB: [place] [address]Fzz: (HP) Primary Insurance:MEDICAREPol icy Number: [id number] Date:4191-70-73Ueqw Name:Medicare URI Andrade NADERERDOB: [id number] [place] [address] [facility] EPIC 05/27/2024 Secondary Insurance:[place] Number: [id number] Date:2020-11-17 URI Andrade NADERERDOB: [id number] [place] [address] [facility] EPIC 05/07/2024 URI GARCIAERERDOB: [place] [address]Bcz: (HP) Primary Insurance:MEDICAREPol icy Number: [id number] Date:6954-57-62Pkty Name:Medicare URI Andrade NADERERDOB: [id number] [place] [address] [facility] EPIC 05/07/2024 Secondary Insurance:[place] Number: [id number] Date:2020-11-17 URI GARCIAERERDOB: [id number] [place] [address] [facility] EPIC 04/20/2024 URI Andrade RADHAERERDOB: [place] [address]Tzr: (HP) Primary Insurance:MEDICAREPol icy Number: [id number] Date:8296-91-50Bshi Name:Medicare URI MESARDOB: [id number] [address] [facility] [address] [facility] EPIC 04/20/2024 Secondary Insurance:[place]: [id number] Date:2020-11-17 URI MESARDOB: [id number] [place] [address] [facility] EPIC 04/14/2024 URI MESARDOB: [place] [facility] [address]Sns: (HP) Primary Insurance:MEDICARE PART A & BPolicy Number: [id number] Date:1997-11-17 URI MESARDOB: [id number] [address] [place] [address]Cny: (HP) [facility] 04/14/2024 [place] Insurance[place] MEDICAIDPolicy Number: [id number] Date:2016-04-10 URI MESARDOB: [id number] [address] [facility] [address]Vnn: (HP) [facility] 04/08/2024 URI MESARDOB: [place] [facility] [address]Hbw: (HP) () Primary Insurance:MEDICARE PART A & BPolicy Number: [id number] Date:1997-11-17 URI MESARDOB: [id number] [address] [facility] [address]Fbw: (HP) [facility] 04/08/2024 [place] MEDICA[place]Policy Number: [id number] Date:2016-04-10 URI Andrade NADERERDOB: [id number] S [facility] [place] [address]Emf: (HP) [facility] 04/08/2024 URI Andrade NADERERDOB: S [facility] [address]Qrn: (HP) (WP) Primary Insurance:MEDICARE PART A & BPolicy Number: [id number] Date:1997-11-17 URI Andrade NADERERDOB: [id number] [address] [facility] [address]Moo: (HP) [facility] 04/08/2024 [place] Insurance:[place] MEDICAIDPolicy Number: [id number] Date:2016-04-10 URI Andrade NADERERDOB: [id number] [address] [facility] [address]Pgx: (HP) [facility] 04/03/2024 URI Andrade NADERERDOB: [place] [facility] [address]Hzq: (HP) (WP) Primary Insurance:MEDICARE PART A & BPolicy Number: [id number] Date:1997-11-17 URI Andrade NADERERDOB: [id number] [address] [facility] [place], [place] [address]Try: (HP) [facility] 04/03/2024 [place] Insurance[place] MEDICA[place]Policy Number: [id number] Date:2016-04-10 URI Andrade NADERERDOB: [id number] [address] [facility] [address]Rjp: (HP) [facility] 03/31/2024 URI MESARDOB: [place] [address]Yae: (HP) Primary Insurance:MEDICAREPol icy Number: [id number] Date:7605-37-77Vkbv Name:Medicare URI MESARDOB: [id number] [place] [address] [facility] 03/31/2024 Secondary Insurance:[place]ID [place]Policy Number: [id number] Date:2020-11-17 URI MESARDOB: [id number] [place] [address] [facility] EPIC 03/25/2024 UIR Andrade RADHAANTHONYRDOB: [place] [address]Fqe: (HP) (WP) Primary Insurance:MEDICARE PART A & BPolicy Number: [id number] Date:1997-11-17 URI MESARDOB: [id number] [address] [place] [address]Nfz: (HP) [facility] 03/25/2024 [place] Insurance[place] MED[place]Policy Number: [id number] Date:2016-04-10 URI Andrade RADHAANTHONYRDOB: [id number] [address] [place] [place] [facility] [address]Ncx: (HP) [facility] 03/12/2024 URI MESARDOB: [place] [address]Awc: (HP) (WP) Primary Insurance:MEDICARE PART A & BPolicy Number: [id number] Date:1997-11-17 URI Andrade NADERERDOB: [id number] [address] [facility] [place] [address]Ial: (HP) [facility] 03/12/2024 [place] Insurance[place] MEDICA[place]Policy Number: [id number] Date:2016-04-10 URI Andrade NADERERDOB: [id number] [address] [facility] [address]Fux: (HP) [facility] 03/10/2024 URI Andrade NADANTHONYRDOB: [address] [facility] [address]Kbl: (HP) () Primary Insurance:MEDICARE PART A & BPolicy Number: [id number] Date:1997-11-17 URI MESARDOB: [id number] [address] [facility], [place] [address]Mgv: (HP) [facility] 03/10/2024 Secondary Insurance[place] MEDICA[place]Policy Number: [id number] Date:2016-04-10 URI MESARDOB: [id number] [address] [facility] [address]Qto: (HP) [facility] 02/28/2024 URI Andrade RADHAANTHONYRDOB: [place] [address]Zyn: (HP) Primary Insurance:MEDICAREPol icy Number: [id number] Date:5274-58-25Vmrt Name:Medicare URI MESARDOB: [id number] [place] [address] [facility] 02/28/2024 Secondary Insurance:[place]ID [place]Policy Number: [id number] Date:2020-11-17 URI Andrade RADHAANTHONYRDOB: [id number] [place] [address] [facility] 02/25/2024 URI Andrade NADERERDOB: [place] [facility] [address]Wia: (HP) () Primary Insurance:MEDICARE PART A & BPolicy Number: [id number] Date:1997-11-17 URI Andrade NADERERDOB: 8381-25-44HVQ4464 [address] [place] [facility] [address]Vod: (HP) [facility] 02/25/2024 [place] MEDICA[place]Policy Number: [id number] Date:2016-04-10 URI GARCIAERERDOB: [id number] [address] [place] [address]Iss: (HP) [facility] 02/07/2024 URI GARCIAERERDOB: [place] [address]Thl: (HP) Primary Insurance:MEDICAREPol icy Number: [id number] Date:9208-60-78Cuae Name:Medicare URI GARCIAERERDOB: [id number] [place] [address] [facility] 02/07/2024 Secondary Insurance:MED[place]Policy Number: [id number] Date:2020-11-17 URI Andrade NADERERDOB: [id number] [place] [address] [facility] 01/28/2024 URI GARCIAERERDOB: [place] [address]Mec: (HP) Primary Insurance:MEDICAREPol icy Number: [id number] Date:7346-17-53Wjbd Name:Medicare URI Andrade NADERERDOB: [id number] [place] [address] [facility] 01/28/2024 Secondary Insurance:[place]ID [place]Policy Number: [id number] Date:2020-11-17 URI Andrade RADHAERERDOB: [id number] [place] [facility] [address] [facility] 01/27/2024 URI Andrade BONITARDOB: [place] [facility] [address]Bvr: (HP) () Primary Insurance:MEDICARE PART A & BPolicy Number: [id number] Date:1997-11-17 URI Andrade BONITARDOB: [id number] [address] [place] [address]Pka: (HP) [facility] 01/27/2024 Secondary Insurance:[place] MEDICAIDPolicy Number: [id number] Date:2016-04-10 URI Andrade BONITARDOB: [id number] [address] [facility] [place] [address]Tko: (HP) [facility] 01/13/2024 URI Andrade BONITARDOB: [place] [address]Ojx: (HP) Primary Insurance:MEDICAREPol icy Number: [id number] Date:1546-92-98Byhe Name:Medicare URI Andrade RADHAANTHONYRDOB: [id number] [place] [address] [facility] 01/13/2024 Secondary Insurance:[place]Policy Number: [id number] Date:2020-11-17 URI Andrade BONITARDOB: [id number] [place] [address] [facility] 01/10/2024 URI Andrade NADERERDOB: S [facility] [place] [address]Qkf: (HP) (WP) Primary Insurance:MEDICARE PART A & BPolicy Number: [id number] Date:1997-11-17 URI Andrade NADERERDOB: [id number] [address] [facility] [place] [address]Qzg: (HP) [facility] 01/10/2024 Secondary Insurance:[place] MEDICAIDPolicy Number: [id number] Date:2016-04-10 URI GARCIAERERDOB: [id number] S [facility] [place], [place] [address]Nhg: (HP) [facility] 01/07/2024 URI GARCIAERERDOB: [address] [facility] [place] [address]Cbc: (HP) (WP) Primary Insurance:MEDICARE PART A & BPolicy Number: [id number] Date:1997-11-17 URI Andrade NADERERDOB: [id number] [address] [facility] [place] [address]Mie: (HP) [facility] 01/07/2024 Secondary Insurance:[place] MEDICAIDPolicy Number: [id number] Date:2016-04-10 URI Andrade NADERERDOB: [id number] S [facility] [place] [address]Msy: (HP) [facility] 01/07/2024 URI Andrade NADERERDOB: S [facility] [place] [address]Xeq: (HP) (WP) Primary Insurance:MEDICARE PART A & BPolicy Number: [id number] Date:1997-11-17 URI GARCIAERERDOB: [id number] [address] [facility] [place] [address]Scf: (HP) [facility] 01/07/2024 Secondary Insurance:[place] MEDICAIDPolicy Number: [id number] Date:2016-04-10 URI GARCIAERERDOB: 5664-22-73JNP9887 [address] [facility], [place] [address]Nxh: (HP) [facility] 01/03/2024 URI GARCIAERERDOB: [place] [address]Iot: (HP) Primary Insurance:MEDICAREPol icy Number: [id number] Date:6617-79-95Nswr Name:Medicare URI MESARDOB: [id number] [place] [address] [facility] 01/03/2024 Secondary Insurance:[place]Policy Number: [id number] Date:2020-11-17 URI MESARDOB: [id number] [place] [address] [facility] 12/27/2023 URI GARCIAERERDOB: [place] [address]Zpf: (HP) Primary Insurance:MEDICAREPol icy Number: [id number] Date:9780-61-89Ycoq Name:Medicare URI GARCIAERERDOB: [id number] [place] [address] [facility] 12/27/2023 Secondary Insurance:[place]Policy Number: [id number] Date:2020-11-17 URI GARCIAERERDOB: [id number] [place] [address] [facility] 12/20/2023 URI MESARDOB: [place] [address]Vga: (HP) Primary Insurance:MEDICAREPol icy Number: [id number] Date:4268-59-63Spwa Name:Medicare URI MESARDOB: [id number] [place] [address] [facility] 12/20/2023 Secondary Insurance:MED[place]ID [place]Policy Number: [id number] Date:2020-11-17 URI MESARDOB: [id number] [place] [address] [facility] 12/20/2023 URI MESARDOB: [place] [address]Hfu: (HP) () Primary Insurance:MEDICARE PART A & BPolicy Number: [id number] Date:1997-11-17 URI MESARDOB: [id number] [address] [place] [address]Ept: (HP) [facility] 12/20/2023 Secondary Insurance:[place] MEDICAIDPolicy Number: [id number] Date:2016-04-10 URI MESARDOB: [id number] [address] [place] [address]Sbj: (HP) [facility] 12/13/2023 URI MESARDOB: [place] [address]Xko: (HP) Primary Insurance:MEDICAREPol icy Number: [id number] Date:5920-88-81Qhft Name:Medicare URI MESARDOB: [id number] [place] [address] [facility] 12/13/2023 Secondary Insurance:[place]ID [place] Number: [id number] Date:2020-11-17 URI Andrade RADHAANTHONYRDOB: [id number] [place] [address] [facility] 12/10/2023 URI Andrade RADHAANTHONYRDOB: [place] [facility] [address]Gqb: (HP) () Primary Insurance:MEDICARE PART A & BPolicy Number: [id number] Date:1997-11-17 URI Andrade RADHAANTHONYRDOB: [id number] [address] [facility] [place] [address]Jhv: (HP) [facility] 12/10/2023 Secondary Insurance:[place] MEDICAIDPolicy Number: [id number] Date:2016-04-10 URI Andrade RADHAANTHONYRDOB: [id number] [address] [facility] [address]Dez: (HP) [facility] 12/05/2023 URI Andrade RADHAANTHONYRDOB: S [facility] [address]Yyw: (HP) Primary Insurance:MEDICAREPol icy Number: [id number] Date:1423-99-71Uxog Name:Medicare URI Andrade RADHAANTHONYRDOB: [id number] [place] [address] [facility] 12/05/2023 Secondary Insurance[place] Number: [id number] Date:2020-11-17 URI Andrade BONITARDOB: [id number] [place] [address] [facility] EPIC 11/26/2023 URI Andrade BONITARDOB: [place] [address]Tmu: () Primary Insurance:MEDICAREPol icy Number: [id number] Date:7291-53-86Txnm Name:Medicare URI Andrade LIDA: [id number] [place] [address] [facility] 11/26/2023 Secondary Insurance:[place]: [id number] Date:2020-11-17 URI HILTON: 4651-79-81PTN5686 [place] [address] [facility]
--- OUTSIDE RECORDS SUMMARY | 2024-11-18 10:45 | XMS_ITS | Encounter Summary ---
Author Organization [facility] Address [address] [place] [address] Care Team Providers Care Specimen Preparation Assistant Name Role Phone Lyla Cast MAGAN Unavailable [phone] Paul Shipman MD Primary Care Provider + [phone] Reason for Visit * Reason Comments Wound Check Established patient presents today for 3 week wound check of the right foot. Encounter Details Date Type Department Care Team (Latest Contact Info) Description 11/18/2024 10:45 AM EDT [facility] [address] [place] [phone] Anders Wagner, DPViktoria [address] [place], [place] [id number] Stage II pressure ulcer of right heel (CMS-HCC) (Primary Dx); Hereditary sensory-motor neuropathy, type I; Lumbar spina bifida without hydrocephalus (HCC); Flaccid paraplegia, incomplete, at lumbar level (HCC) Social History Tobacco Use Types Packs/Day Years Used Date Smoking Tobacco: Never Smokeless Tobacco: Never Tobacco Cessation:Counseling Given: Not Answered Alcohol Use Standard Drinks/Week Comments Never 0 (1 standard drink = 0.6 oz pur e alcohol) Sex and Gender Information Value Date Recorded Sex Assigned at Not on file Legal Sex Male 7:32 PM EDT Gender Identity Not on file Sexual Orientation Not on file documented as of this encounter Last Filed Vital Signs Vital Sign Reading Time Taken Comments Blood Pressure - - Pulse - - Temperature - - Respiratory Rate - - Oxygen Saturation - - Inhaled Oxygen Concentration - - Weight 68 kg (150 lb) 11/18/2024 10:40 AM EDT Height 152.4 cm (5') 11/18/2024 10:40 AM EDT Body Mass Index 29.29 11/18/2024 10:40 AM EDT documented in this encounter Patient Instructions * Patient Instructions* Anders Wagner DPM - 11/18/2024 10:45 AM EDT Wound care instructions provided to care staff as noted documented in this encounter Progress Notes * Anders Wagner DPM - 11/18/2024 10:45 AM EDT Images from the original note were not included. Subjective Patient ID: Igor Pereira is a 64 y.o. male who presents for Wound Check (Established patient presents today for 3 week wound check of the right foot.). HPI Follow-up assessment and wound care: Chronic, recalcitrant neuropathic wound; located dorsal lateral surface of the right midfoot. Accompanied by his caregiver, Evelyn. Status post SDRM 21st application (10/28/2024). Last dressing remained in place 7 days. There remains minimal serous drainage on a daily basis. There has been no new swelling, redness or streaking. Compliance with daily wound care measures and bracing remains good. Wound Check Medications Current Outpatient Medications: acetaminophen (Tylenol) 325 MG tablet, Take by mouth, Disp: , Rfl: amLODIPine (Norvasc) 2.5 MG tablet, Take 2.5 mg by mouth Daily, Disp: , Rfl: ammonium lactate (Lac-Hydrin) 12 % lotion, Apply topically if needed for dry skin, Disp: , Rfl: bacitracin 500 UNIT/GM ointment, Apply topically in the morning and before bedtime., Disp: , Rfl: carbamide peroxide (Debrox) 6.5 % otic solution, 5 drops in the morning and 5 drops before bedtime., Disp: , Rfl: citalopram (CeleXA) 20 MG tablet, Take by mouth, Disp: , Rfl: citalopram (CeleXA) 40 MG tablet, Take 20 mg by mouth, Disp: , Rfl: dextromethorphan 7.5 MG/5ML syrup, Take 7.5 mg by mouth every 6 (six) hours if needed for cough, Disp: , Rfl: dilTIAZem CD (Cardizem CD) 240 MG 24 hr capsule, Take 240 mg by mouth Daily, Disp: , Rfl: divalproex (Depakote ER) 250 MG 24 hr tablet, Take 250 mg by mouth Daily Do not crush, chew, or split., Disp: , Rfl: ferrous sulfate 325 (65 Fe) MG tablet, Take 325 mg by mouth in the morning. Take with meals., Disp:, Rfl: guaiFENesin (Robitussin) 100 MG/5ML liquid, Take 200 mg by mouth as needed in the morning and 200 mg as needed at noon and 200 mg as needed in the evening for cough., Disp: , Rfl: hydrocortisone (Proctozone-HC) 2.5 % rectal cream, Insert into the rectum in the morning and beforebedtime., Disp: , Rfl: Lactobacillus (ACIDOPHILUS PO), Take by mouth, Disp: , Rfl: lactulose (Chronulac) 10 GM/15ML solution, Take 20 g by mouth in the morning and 20 g in the evening and 20 g before bedtime., Disp: , Rfl: LACTULOSE ENCEPHALOPATHY PO, Take by mouth, Disp: , Rfl: lisinopril 30 MG tablet, Take by mouth Daily, Disp: , Rfl: LORazepam (Ativan) 2 MG tablet, Take 2 mg by mouth, Disp: , Rfl: meloxicam (Mobic) 7.5 MG tablet, Take by mouth, Disp: , Rfl: Menthol-Zinc Oxide (Calmoseptine) 0.44-20.6 % ointment, Apply topically, Disp: , Rfl: miconazole (Micotin) 2 % powder, Apply topically if needed for itching, Disp: , Rfl: Mirabegron (MYRBETRIQ PO), Take by mouth, Disp: , Rfl: Multiple Vitamin (multivitamin) tablet, Take 1 tablet by mouth Daily, Disp: , Rfl: Multiple Vitamins-Minerals (TAB-A-KENA MAXIMUM PO), Take by mouth, Disp: , Rfl: omega-3 acid ethyl esters (Lovaza) 1 g capsule, Take 1 g by mouth in the morning and 1 g before bedtime., Disp: , Rfl: oxybutynin XL (Ditropan-XL) 15 MG 24 hr tablet, Take 15 mg by mouth Daily Do not crush, chew, or split., Disp: , Rfl: polyethylene glycol, PEG, 3350 (Glycolax) 17 GM/SCOOP powder, Take by mouth, Disp: , Rfl: psyllium (Metamucil) 28 % packet, Take 1 packet by mouth in the morning and 1 packet before bedtime. Mix and drink with at least 8 ounces of water or juice., Disp: , Rfl: raNITIdine (Zantac) 150 MG tablet, Take 150 mg by mouth in the morning and 150 mg before bedtime., Disp: , Rfl: risperiDONE (RisperDAL) 2 MG tablet, Take 1.5 mg by mouth in the morning and 1.5 mg before bedtime., Disp: , Rfl: senna-docusate (Fatimah-Colace) 8.6-50 MG tablet, Take 1 tablet by mouth Daily, Disp: , Rfl: simvastatin (Zocor) 10 MG tablet, Take 10 mg by mouth at bedtime, Disp: , Rfl: Skin Protectants, Misc. (DERMACERIN EX), Apply topically, Disp: , Rfl: sodium phosphate (Fleet) 3.5-9.5 GM/59ML enema, Insert into the rectum, Disp: , Rfl: Water For Irrigation, Sterile (Rankin Sterile Water) solution, Irrigate with as directed, [...] Examination: GENERAL EXAMINATION: Presents ambulatory with double-arm crutch assist. Bilateral AFOs in place, wearing new balance [...] midfoot: [place] stage II neuropathic wound; location dorsal-lateralmidfoot. Wound bed remains well hydrated, clean and near- completely granular; minimal serous drainage, without undermining, tunneling or probing. The wound margins are well adhered, slightly raised, fibrotic and keratotic; with no appreciable macerated areas. There are no clinical signs of infection. Unremarkable for malodor or ischemic changes. Soft tissue envelope well perfused. Chronic, stablefluctuant swelling of the right midfoot. Post-debridement measurements: 11/18/2024: 1.4 x 0.7 x 0.2 cm Post-debridement measurements: 10/28/2024: 0.9 x 0.4 x 0.2 cm Post-debridement measurements: 10/01/2024: 1.4 x 0.4 x 0.2 cm Post-debridement measurements: 09/10/2024: 1.3 x 0.6 x 0.2 cm Post-debridement measurements: 08/19/2024: 1.3 x 0.6 x 0.1 cm Post-debridement measurements: 07/27/2024: 1.4 x 0.7 x 0.1 cm Post-debridement measurements: 07/06/2024: 1.2 x 0.8 x 0.1 cm Post-debridement measurements: 06/15/2024: 1.5 x 1.0 x 0.1 cm Post-debridement measurements: 05/27/2024: 1.3 x 0.9 x 0.1 cm Orthopedic: DEFORMITIES: severe gastrocsoleus equinus bilateral. multiple digital deformities. Flaccid PVP footstructure. MUSCLE STRENGTH: Bilateral lower extremity flaccid paralysis [...] followed by Supra SDRM biodegradable matrix application #22 (donated product/assistance program). 2. Dressing intact, clean [...] or will be identified or corrected. Thank youfor your understanding. Anders Wagner DPM documented in this encounter Plan of Treatment Upcoming Encounters Date Type Department Care Team (Late st Contact Info) Description 11/30/2024 8:45 AM EDT Procedure Visit [facility] [address] [place] [address] Anders Wagner DPM [address] [place] [address] 12/09/2024 10:45 AM EDT Office Visit [facility] [address] [place] [address] Anders Wagner DPM [address] [place] [address] documented as of this encounter Visit Diagnoses Diagnosis Stage II pressure ulcer of right heel (CMS-HCC)- Primary Hereditary sensory-motor neuropathy, type I Peroneal muscular atrophy Lumbar spina bifida without hydrocephalus (HCC) Spina bifida without mention of hydrocephalus, lumbar region Flaccid paraplegia, incomplete, at lumbar level (HCC) documented in this encounter Care Teams Specimen Preparation Assistant Relationship Specialty Start Date End Date Paul Shipman MD [address] [facility] [place] [address] PCP - General Family Medicine 10/01/24 Lyla Cast CRNP [address] [facility] [place] [address] Referring Physician Nurse Practitioner 10/30/22 documented as of this encounter
--- OUTSIDE RECORDS SUMMARY | 2024-11-23 06:45 | XMS_ITS | Encounter Summary ---
Author Organization [employer] tem Address [id number] [address] [place] [address] Care Team Providers Care Information Clerk [employer] Name Role Phone Lyla Cast RADAR ENGINEERING TEACHER-CALCULUS PROFESSOR Primary Care Provid er Encounter Details Date Type Department Care Team (Late st Contact Info) Description 05/17/2023 Orders Only [facility] [address] [place] [phone] Lyla Cast, RADAR ENGINEERING TEACHER-CALCULUS PROFESSOR [address] PM 11/16/24 [place] [phone] Mixed hyperlipidemia; Hypertension Social History Tobacco Use Types Packs/Day Years Used Date Smoking Tobacco: Never Smokeless Tobacco: Never Alcohol Use Standard Drinks/Week Comments No 0 (1 standard drink = 0.6 oz pur e alcohol) PHQ-2 Answer Date Recorded Total Score 0 10/18/2022 Childcare Answer Date Recorded Childcare Unknown 10/28/2018 Employment Answer Date Recorded Employment Unknown 10/28/2018 Hunger Screening Answer Date Recorded Within the past 12 months we worried whether our food would run out before we got money to buy more. Never True 10/18/2022 Within the past 12 months th e food we bought just didn't last and we didn't have money to get more. Never True 10/18/2022 Purpose - Life Answer Date Recorded Purpose [...] Support Visit [facility] [address] [place] [address] [place] [address] Imer Luna MD [facility] [place] [address] documented as of this encounter Procedures Procedure Name Priority Date/Time Associated Diagnosis Comments CBC WITH AUTO DIFFERENTIAL Routine 05/17/2023 Mixed hyperlipidemia Hypertension documented in this encounter Results * CBC auto differential (05/17/2023) External Wbc Count 6.7 MANUALLY TRANSCRIBED RESULTS External Rbc Count 3.82 MANUALLY TRANSCRIBED RESULTS External Hemoglobin 11.7 MANUALLY TRANSCRIBED RESULTS External Hematocrit Hct 36.1 MANUALLY TRANSCRIBED RESULTS External Mcv 94.5 MANUALL Y TRANSCRIBED RESULTS External MCH 30.6 MANUALL Y TRANSCRIBED RESULTS External Mchc 32.4 MANUAL LY TRANSCRIBED RESULTS External Rdw 14.0 MANUALL Y TRANSCRIBED RESULTS External Platelet Count 145 MANUALLY TRANSCRIBED RESULTS External Mpv 10.6 MANUALL Y TRANSCRIBED RESULTS Blood 05/17/2023 us Lyla RATLIFF LAB BLOOD ORDERABLES Final Result MANUALLY TRANSCRIBED RESULTS documented in this encounter Visit Diagnoses Diagnosis Mixed hyperlipidemia Hypertension Unspecified essential hypertension documented in this encounter Additional Health Concerns Assessment Noted Time PHQ-9 Depression Total Score: 0 10/19/19 23 9:28 AM EDT A Body Mass Index follow-up plan has been documented for the patient 10/25/2022 6:43 AM EDT documented as of this encounter Care Teams Information Clerk [employer] Relationship Specialty Start Date End Date Lyla Cast APRN-CNP PCP - General Nurse Practitioner 03/19/17 documented as of this encounter
--- OUTSIDE RECORDS SUMMARY | 2024-11-23 06:46 | XMS_ITS | Encounter Summary ---
Author Organization [facility] Address [address] [place] [address] Care Team Providers Care Helicopter Technician Name Role Phone Lyla Cast MAGAN Unavailable [phone] Paul Shipman MD Primary Care Provider + [phone] Encounter Details Date Type Department Care Team (Latest Contact Info) Description 11/18/2024 Travel Social History Tobacco Use Types Packs/Day Years Used Date Smoking Tobacco: Never Smokeless Tobacco: Never Alcohol Use Standard Drinks/Week Comments Never 0 [...] 8:45 AM EDT [facility] [address] [facility] [place] [place] [address] Anders Wagner DPM [address] [place], [place] [phone] 12/09/2024 10:45 AM EDT Office Visit [facility] [address] [place] [address] Anders Wagner DPM [address] [place], [place] [phone] documented as of this encounter Visit Diagnoses Not on filedocumented in this encounter Care Teams Helicopter Technician Relationship Specialty Start Date End Date Paul Shipman MD [address] [facility] [phone] PCP - General Family Medicine 10/01/24 Lyla Cast CRNP [address] [facility] [place] [address] Referring Physician Nurse Practitioner 10/30/22 documented as of this encounter
--- OUTSIDE RECORDS SUMMARY | 2024-11-23 06:46 | XMS_ITS | Encounter Summary ---
Author Organization [employer] tem Address [id number] [address] [place] [address] Care Team Providers Care Winding Rack Operator Name Role Phone Lyla Cast DESK REPRESENTATIVE-SELF CONTAINED BEHAVIOR UNIT TEACHER Primary Care Provid er Encounter Details Date Type Department Care Team (Late Contact Info) Description 07/27/2019 Telephone [facility] [address] [place] [address] Marla Mix, MARCUS Social History Tobacco Use Types Packs/Day Years Used Date Smoking Tobacco: Never Smokeless Tobacco: Never Alcohol Use Standard Drinks/Week Comments No 0 (1 standard drink = 0.6 oz pur e alcohol) PHQ-2 Answer Date Recorded PHQ-2 Score 0 05/21/2018 Childcare Answer Date Recorded Childcare Unknown 10/28/2018 Employment Answer Date Recorded Employment Unknown 10/28/2018 Sex and Gender Information Value Date Recorded Sex Assigned at Not on file Legal Sex Male 11:23 AM EDT Gender Identity Not on file Sexual Orientation Not on file documented as of this encounter Plan of Treatment Upcoming Encounters Date Type Department Care Team (Late Contact Info) Description 12/28/2024 10:00 AM EDT Support Visit [facility] [address] [place] [address] [place] [address] Imer Luna MD [address] [place] [address] documented as of this encounter Visit Diagnoses Not on filedocumented in this encounter Additional Health Concerns Assessment Noted Time PHQ-9 Depression Total Score: 0 07/13/19 20 2:10 PM EST A Body Mass Index follow-up plan has been documented for the patient 07/19/2019 7:47 PM EST documented as of this encounter Care Teams Winding Rack Operator Relationship Specialty Start Date End Date Lyla Cast, DONNY-SELF CONTAINED BEHAVIOR UNIT TEACHER PCP - General Nurse Practitioner 03/19/17 documented as of this encounter
--- OUTSIDE RECORDS SUMMARY | 2024-11-23 06:46 | XMS_ITS | Encounter Summary ---
Author Organization [email or web address] tem Address [facility] [id number] [address] [place] [address] Care Team Providers Care Inorganic Chemical Technician Name Role Phone Lyla Cast APRN-CASH SURRENDER CALCULATOR Primary Care Provid er Encounter Details Date Type Department Care Team (Late st Contact Info) Description 07/18/2023 Orders Only [facility] - Family Medicine [address] [place] [phone] Lyla Cast APRN-CASH SURRENDER CALCULATOR [address] PM 11/16/24 [place] [phone] Social History Tobacco Use Types Packs/Day Years [...] Support Visit [facility] [address] [place] [address] [place] [address] Imer Luna MD [facility] [place] [place] [address] documented as of this encounter Visit Diagnoses Not on filedocumented in this encounter Additional Health Concerns Assessment Noted Time PHQ-9 Depression Total Score: 0 10/19/19 9:28 AM EDT A Body Mass Index follow-up plan has been documented for the patient 10/25/2022 6:43 AM EDT documented as of this encounter Care Teams Inorganic Chemical Technician Relationship Specialty Start Date End Date Lyla Cast, GENERATOR OPERATOR-CASH SURRENDER CALCULATOR PCP - General Nurse Practitioner 03/19/17 documented as of this encounter
--- OUTSIDE RECORDS SUMMARY | 2024-11-23 06:46 | XMS_ITS | Encounter Summary ---
Author Organization [employer] tem Address [id number] [address] [place] [address] Care Team Providers Care Golf Club Manager Name Role Phone Lyla Cast TNT POWDER WORKER-SLEEP LAB TECHNOLOGIST Primary Care Provid er Encounter Details Date Type Department Care Team (Late Contact Info) Description 09/15/2021 Orders Only [facility] [address] [facility] [place] [address] External, Scanning Provider Social History Tobacco Use Types Packs/Day Years Used Date Smoking Tobacco: Never Smokeless Tobacco: Never Alcohol Use Standard Drinks/Week Comments No 0 (1 standard drink = 0.6 oz pur e alcohol) PHQ-2 Answer Date Recorded Total Score 0 09/15/2021 Childcare Answer Date Recorded Childcare Unknown 10/28/2018 Employment Answer Date Recorded Employment Unknown 10/28/2018 Purpose - Life Answer Date Recorded Purpose and direction in life Unknown Sex and Gender Information Value Date Recorded Sex Assigned at Not on file Legal Sex Male 11:23 AM EDT Gender Identity Not on file Sexual Orientation Not on file COVID-19 Exposure Response Date Recorded In the last 10 days, have yo u been in contact with someone who was confirmed or suspected to have Coronavirus/COVID-19? No / Unsure 08/29/2021 11:33 AM EDT documented as of this encounter Plan of Treatment Upcoming Encounters Date Type Department Care Team (Late Contact Info) Description 12/28/2024 10:00 AM EDT Support Visit [facility] [address] [place] [address] [place] [address] Imer Luna MD [address] [place] [address] documented as of this encounter Procedures Procedure Name Priority Date/Time Associated Diagnosis Comments MULTIPLE LABS Routine 09/15/2021 documented in this encounter Results * Multiple labs (09/15/2021) us Scanning Provider External [facility] IMAGING Final Result MANUALLY TRANSCRIBED RESULTS documented in this encounter Visit Diagnoses Not on filedocumented in this encounter Additional Health Concerns Assessment Noted Time PHQ-9 Depression Total Score: 0 09/16/19 22 8:10 AM EDT A Body Mass Index follow-up plan has been documented for the patient 09/18/2021 7:14 AM EDT documented as of this encounter Care Teams Golf Club Manager Relationship Specialty Start Date End Date Lyla Cast, DONNY-SLEEP LAB TECHNOLOGIST PCP - General Nurse Practitioner 03/19/17 documented as of this encounter
--- OUTSIDE RECORDS SUMMARY | 2024-11-23 06:46 | XMS_ITS | Encounter Summary ---
Author Organization [employer] tem Address [id number] [address] [place] [address] Care Team Providers Care Health Companion Name Role Phone Lyla Cast APRN-PIE DOUGH ROLLER Primary Care Provid er Reason for Visit * Reason Comments Med Refill Encounter Details Date Type Department Care Team (Late st Contact Info) Description 11/20/2024 Refill [facility] [address] [place] [phone] Lyla Cast, FLUE GAS ANALYST-PIE DOUGH ROLLER [address] PM 11/16/24 [place] [phone] Social History Tobacco Use Types Packs/Day Years [...] Support Visit [facility] [address] [place] [address] [place] [address] Imer Luna MD [facility] [place] [address] documented as of this encounter Visit Diagnoses Not on filedocumented in this encounter Additional Health Concerns Assessment Noted Time PHQ-9 Depression Total Score: 0 10/25/19 24 7:00 AM EDT A Body Mass Index follow-up plan has been documented for the patient 10/25/2022 6:43 AM EDT documented as of this encounter Care Teams Health Companion Relationship Specialty Start Date End Date Lyla Cast, FLUE GAS ANALYST-PIE DOUGH ROLLER PCP - General Nurse Practitioner 03/19/17 documented as of this encounter
--- OUTSIDE RECORDS SUMMARY | 2024-11-23 06:46 | XMS_ITS | Encounter Summary ---
Author Organization [employer] tem Address [facility]-[id number] [address] [place] [address] Care Team Providers Care Yard Assistant Name Role Phone Lyla Cast GIS APPLICATION DEVELOPER-MIXER RUNNER Primary Care Provid er Encounter Details Date Type Department Care Team (Late Contact Info) Description 08/17/2021 Orders Only [facility] [address] [facility] [place] [phone] Erika Dela Cruz MA Vitamin D deficiency Social History Tobacco Use Types Packs/Day Years Used Date Smoking Tobacco: Never Smokeless Tobacco: Never Alcohol Use Standard Drinks/Week Comments No 0 (1 standard drink = 0.6 oz pur e alcohol) PHQ-2 Answer Date Recorded Total Score 0 12/08/2020 Childcare Answer Date Recorded Childcare Unknown 10/28/2018 [...] Support Visit [facility] [address] [facility] [place] [place] [address] [place] [address] Imer Luna MD [address] [place] [address] documented as of this encounter Procedures Procedure Name Priority Date/Time Associated Diagnosis Comments MULTIPLE LABS Routine 08/16/2021 VITAMIN D 25 HYDROXY Routine 08/16/2021 Vitamin D deficiency documented in this encounter Results * Multiple labs (08/16/2021) us Not In System Ref Prov [facility] Final Res ult Performing Organization Address City/[facility]/ZIP Co de Phone Number MANUALLY TRANSCRIBED RESULTS * Vitamin D 25 hydroxy (08/16/2021) External Vitamin D 25-Hydroxy 31.9 [employer] Blood 08/16/2021 us Lyla RATLIFF LAB BLOOD ORDERABLES Edited Result - Final Performing Organization Address [facility]/ZIP Co de Phone Number SUNQUEST documented in this encounter Visit Diagnoses Diagnosis Vitamin D deficiency documented in this encounter Additional Health Concerns Assessment Noted Time PHQ-9 Depression Total Score: 0 12/09/19 21 8:33 AM EDT A Body Mass Index follow-up plan has been documented for the patient 06/29/2021 12:50 PM EST documented as of this encounter Care Teams Yard Assistant Relationship Specialty Start Date End Date Lyla Cast APRN-CNP PCP - General Nurse Practitioner 03/19/17 documented as of this encounter
--- OUTSIDE RECORDS SUMMARY | 2024-11-23 06:46 | XMS_ITS | Encounter Summary ---
Author Organization [employer] tem Address [id number] [address] [place] [address] Care Team Providers Care Fpga Design Engineer Name Role Phone Lyla Cast MAT REPAIRER-WORK OVER RIG OPERATOR Primary Care Provid er Encounter Details Date Type Department Care Team (Late st Contact Info) Description 07/31/2021 Telephone [facility] [address] [place] [address] [place] [address] [address] Danielle García Social History Tobacco Use Types Packs/Day Years [...] on file documented as of this encounter Miscellaneous Notes * Telephone Encounter - Danielle García - 07/31/2021 1:32 PM EDT LM 07/31/21 TO RESCHEDULE 08/15/21 APPT documented in this encounter Plan of Treatment Upcoming Encounters Date Type Department Care Team (Late st Contact Info) Description 12/28/2024 10:00 AM EDT Support Visit [facility] [address] [place] [address] A [facility] [place] [address] Imer Luna MD [facility] [place] [address] documented as of this encounter Visit Diagnoses Not on filedocumented in this encounter Additional Health Concerns Assessment Noted Time PHQ-9 Depression Total Score: 0 12/09/19 8:33 AM EDT A Body Mass Index follow-up plan has been documented for the patient 06/29/2021 12:50 PM EST documented as of this encounter Care Teams Fpga Design Engineer Relationship Specialty Start Date End Date Lyla Cast, MAT REPAIRER-WORK OVER RIG OPERATOR PCP - General Nurse Practitioner 03/19/17 documented as of this encounter
--- OUTSIDE RECORDS SUMMARY | 2024-11-23 06:46 | XMS_ITS | Encounter Summary ---
Author Organization [employer] tem Address [id number] [address] [place] [address] Care Team Providers Care Carbonating Stone Cleaner Name Role Phone Lyla Cast HOOD MAKER-BULK PICKER Primary Care Provid er Encounter Details Date Type Department Care Team (Late st Contact Info) Description 08/24/2024 Orders Only [facility] [address] [place] [phone] Ref Prov, [place] [address] Social History Tobacco Use Types Packs/Day Years [...] got money to buy more. Never True 07/14/2024 Within the past 12 months th e food we bought just didn't last and we didn't have money to get more. Never True 07/14/2024 Purpose - Life Answer Date Recorded Purpose [...] Visit [facility] [address] [facility] [place] [address] Imer Luna MD [address] [place] [address] documented as of this encounter Procedures Procedure Name Priority Date/Time Associated Diagnosis Comments XR HAND RT 2 VWS Routine 08/24/2024 11:51 AM EDT documented in this encounter Results * X-ray hand right 2 views (08/24/2024 11:51 AM EDT) Anatomical Region Laterality Modality Upper Extremities, MSK, Hand Right Com puted Radiography us Not In System Ref Prov IMG DIAGNOSTIC IMAGING OR DERABLES Final Result documented in this encounter Visit Diagnoses Not on filedocumented in this encounter Additional Health Concerns Assessment Noted Time PHQ-9 Depression Total Score: 0 10/25/19 24 7:00 AM EDT A Body Mass Index follow-up plan has been documented for the patient 10/25/2022 6:43 AM EDT documented as of this encounter Care Teams Carbonating Stone Cleaner Relationship Specialty Start Date End Date Lyla Cast APRN-BULK PICKER PCP - General Nurse Practitioner 03/19/17 documented as of this encounter
--- OUTSIDE RECORDS SUMMARY | 2024-11-23 06:46 | XMS_ITS | Clinical Summary ---
Author Organization [facility] Address [address] [place] [address] Care Team Providers Care Service Support Representative Name Role Phone Lyla Cast MAGAN Unavailable [phone] Paul Shipman MD Primary Care Provider + [phone] Allergies No known active allergies Medications dextromethorphan 7.5 MG/5ML syrup Take 7.5 mg by mouth every 6 (six) hours if needed for cough Active LORazepam (Ativan) 2 MG tablet Take 2 mg by mouth Active Multiple Vitamins-Minerals (TAB-A-KENA MAXIMUM PO) Take by mouth Acti ve senna-docusate (Fatimah-Colace) 8.6-50 MG tablet Take 1 tablet by mouth Daily Active risperiDONE (RisperDAL) 2 MG tablet Take 1.5 mg by mouth in the morning and 1.5 mg before bedtime. Active Mirabegron (MYRBETRIQ PO) Take by mouth A ctive ferrous sulfate 325 (65 Fe) MG tablet Take 325 mg by mouth in the morning. Take with meals. Active acetaminophen (Tylenol) 325 MG tablet Take by mouth Active Lactobacillus (ACIDOPHILUS PO) Take by mouth Active ammonium lactate (Lac-Hydrin) 12 % lotion Apply topically if needed for dry skin Active citalopram (CeleXA) 40 MG tablet Take 20 mg by mouth Active dilTIAZem CD (Cardizem CD) 240 MG 24 hr capsule Take 240 mg by mouth Daily Active carbamide peroxide (Debrox) 6.5 % otic solution 5 drops in the morning and 5 drops before bedtime. Active LACTULOSE ENCEPHALOPATHY PO Take by mouth Active lisinopril 30 MG tablet Take by mouth Daily Active psyllium (Metamucil) 28 % packet Take 1 packet by mouth in the morning and 1 packet before bedtime. Mix and drink with at least 8 ounces of water or juice. Active polyethylene glycol, PEG, 3350 (Glycolax) 17 GM/SCOOP powder Take by mouth Active omega-3 acid ethyl esters (Lovaza) 1 g capsule Take 1 g by mouth in the morning and 1 g before bedtime. Active oxybutynin XL (Ditropan-XL) 15 MG 24 hr tablet Take 15 mg by mouth Daily Do not crush, chew, or split. Active simvastatin (Zocor) 10 MG tablet Take 10 mg by mouth at bedtime Active bacitracin 500 UNIT/GM ointment Apply topically in the morning and before bedtime. Active Multiple Vitamin (multivitamin) tablet Take 1 tablet by mouth Daily Active miconazole (Micotin) 2 % powder Apply topically if needed for itching Active lactulose (Chronulac) 10 GM/15ML solution Take 20 g by mouth in the morning and 20 g in the evening and 20 g before bedtime. Active raNITIdine (Zantac) 150 MG tablet Take 150 mg by mouth in the morning and 150 mg before bedtime. Active citalopram (CeleXA) 20 MG tablet Take by mouth Active guaiFENesin (Robitussin) 100 MG/5ML liquid Take 200 mg by mouth as needed in the morning and 200 mg as needed at noon and 200 mg as needed in the evening for cough. Active meloxicam (Mobic) 7.5 MG tablet Take by mouth Ac tive amLODIPine (Norvasc) 2.5 MG tablet Take 2.5 mg by mouth Daily Active Menthol-Zinc Oxide (Calmoseptine) 0.44-20.6 % ointment Apply topically Active Skin Protectants, Misc. (DERMACERIN EX) Apply topically Active sodium phosphate (Fleet) 3.5-9.5 GM/59ML enema Insert into the rectum Active hydrocortisone (Proctozone-HC) 2.5 % rectal cream Insert into the rectum in the morning and before bedtime. Active Water For Irrigation, Sterile (Severance Sterile Water) solution Irrigate with as directed Active zinc gluconate 50 MG tablet Take 50 mg by mouth Daily Active divalproex (Depakote ER) 250 MG 24 hr tablet Take 250 mg by mouth Daily Do not crush, chew, or split. Active Active Problems No known active problems Encounters Date Type Department Care Team Description 11/18/2024 10:45 AM EDT Office Visit [facility] [address] [place] [address] Anders Wagner DPM Stage II pressure ulcer of right heel (CMS-HCC) (Primary Dx); Hereditary sensory-motor neuropathy, type I; Lumbar spina bifida without hydrocephalus (HCC); Flaccid paraplegia, incomplete, at lumbar level (HCC) 11/18/2024 Abstract [facility] [address] [place] [address] Anders Wagner, GAYATHRI 11/18/2024 Bamboo flowsheet [facility] [address] [place] [address] Anders Wagner, GAYATHRI 11/18/2024 Travel 11/17/2024 Travel 10/28/2024 3:30 PM EDT Office Visit [facility] [address] [place] [address] Anders Wagner DPM Stage II pressure ulcer of right heel (CMS-HCC) (Primary Dx); Hereditary sensory-motor neuropathy, type I; Lumbar spina bifida without hydrocephalus (HCC); Flaccid paraplegia, incomplete, at lumbar level (HCC) 10/28/2024 Abstract [facility] [address] [place] [address] Anders Wagner, DPM 10/28/2024 Bamboo flowsheet [facility] [address] [place] [address] Anders Wagner, GAYATHRIM 10/28/2024 Travel 10/27/2024 Travel 10/01/2024 4:00 PM EDT Office Visit [facility] [address] [place] [address] Anders Wagner DPM Stage II pressure ulcer of right heel (CMS-HCC) (Primary Dx); Hereditary sensory-motor neuropathy, type I; Lumbar spina bifida without hydrocephalus (HCC); Flaccid paraplegia, incomplete, at lumbar level (HCC) 10/01/2024 Abstract [facility] [address] [place] [address] Anders Wagner DPM 10/01/2024 Travel 09/10/2024 3:30 PM EDT Office Visit [facility] [address] [place] [address] Anders Wagner DPM Stage II pressure ulcer of right heel (CMS-HCC) (Primary Dx); Hereditary sensory-motor neuropathy, type I; Lumbar spina bifida without hydrocephalus (HCC); Flaccid paraplegia, incomplete, at lumbar level (HCC) 09/10/2024 Bamboo flowsheet [facility] [address] [place] [address] Anders Wagner DPM 09/10/2024 Travel 09/08/2024 Travel from Last 3 Months Immunizations Immunization Administration Dates Next Due DTaP 06/20/2011 Influenza, Unspecified 03/01/2017 Influenza, injectable, quadr ivalent, preservative free 03/22/2023,03/26/2022,03/20/2021,03/10,03/03/2019,03/06/2018,03/06/2017 ,03/01/2017,03/05/2016 Influenza, seasonal, injecta ble, preservative free 04/03/2024 MMR 10/29/1983 Moderna SARS-CoV-2 Vaccination 07/17/2021,2020,05/30/2020 Novel [id number] 04/27/2009 Pfizer Purple Cap SARS-CoV-2 Vaccination 06/27/2020,05/30/2020 Pneumococcal Polysaccharide PPSV23 04/17/2013, TD (adult), 2 Lf tetanus tox oid, preservative free, adsorbed 03/09/1985,03/10/1984,10/29/1983 Tdap 08/13/2022,07/13/1994 Zoster, Recombinant 04/21/2019,01/27/2019 Zoster, live 04/21/2019,01/27/2019 Family History Medical History Relation Name Comments Mental illness Maternal Grandfather Relation Name Status Comments Father Alive Maternal Grandfather Mother Alive Sister Vilma Thomas his guardian Social History Tobacco Use Types Packs/Day Years [...] on file Sexual Orientation Not on file Last Filed Vital Signs Vital Sign Reading Time Taken Comments Blood Pressure 108/69 06/30/2019 12:00 PM EST Pulse - - Temperature 36.9 C (98.5 F) 10/01/2024 3:56 PM EDT Respiratory Rate - - Oxygen Saturation - - Inhaled Oxygen Concentration - - Weight 68 kg (150 lb) 11/18/2024 10:40 AM EDT Height 152.4 cm (5') 11/18/2024 10:40 AM EDT Body Mass Index 29.29 11/18/2024 10:40 AM EDT Plan of Treatment Upcoming Encounters Date Type Department Care Team (Late st Contact Info) Description 11/30/2024 8:45 AM EDT Procedure Visit [facility] [address] [place] [address] Anders Wagner DPM [address] [place] [address] 12/09/2024 10:45 AM EDT Office Visit [facility] [address] [place] [address] Anders Wagner DPM [address] [place], [place] [address] Health Maintenance Due Date Last Done Comments CT Colonography 1962 FIT-DNA 1962 FIT 1962 FOBT 1962 Sigmoidoscopy 1962 Influenza Vaccine (#1) 2025 , 03/22/2023, 03/26/2022, Additional history exists Colonoscopy 02/16/2032 02/15/2022 Colorectal Cancer Screening 02/16/2032 Insurance MEDICARE MEDICAID [place] Care Teams Service Support Representative Relationship Specialty Start Date End Date Paul Shipman MD [address] [facility] [place] [address] PCP - General Family Medicine 10/01/24 Lyla Cast CRNP [address] [facility] [place] [address] Referring Physician Nurse Practitioner 10/30/22
--- OUTSIDE RECORDS SUMMARY | 2024-11-23 06:46 | XMS_ITS | Encounter Summary ---
Author Organization [employer] tem Address [id number] [address] [place] [address] Care Team Providers Care Barrel Filler Name Role Phone Lyla Cast NATIONAL SALES TRAINER-SHINGLE SAWYER Primary Care Provid er Reason for Visit * Reason Onset Date Comments Med Refill 04/06/2016 Encounter Details Date Type Department Care Team ([facility] Contact Info) Description 04/06/2016 Refill [facility] [place] [address] Rita Mendez CMA Social History Tobacco Use Types Packs/Day Years Used Date Smoking Tobacco: Never Assessed Sex and Gender Information Value Date Recorded Sex Assigned at Not on file Legal Sex Male 11:23 AM EDT Gender Identity Not on file Sexual Orientation Not on file documented as of this encounter Plan of Treatment Upcoming Encounters Date Type Department Care Team ([facility] Contact Info) Description 12/28/2024 10:00 AM EDT Support Visit [facility] [address] [place] [address] [place] [address] Imer Luna MD [address] [place] [address] documented as of this encounter Visit Diagnoses Not on filedocumented in this encounter Care Teams Barrel Filler Relationship Specialty Start Date End Date Lyla Cast, NATIONAL SALES TRAINER-SHINGLE SAWYER PCP - General Nurse Practitioner 03/19/17 documented as of this encounter
--- OUTSIDE RECORDS SUMMARY | 2024-11-23 06:46 | XMS_ITS | Encounter Summary ---
Author Organization [employer] tem Address [id number] [address] [place] [address] Care Team Providers Care Parking Technician Name Role Phone Lyla Cast APRN-FOLDING MACHINE FEEDER Primary Care Provid er Encounter Details Date Type Department Care Team (Late st Contact Info) Description 11/06/2024 Continuing Care [facility] [address] [place] [address] Lyla Cast APRN-FOLDING MACHINE FEEDER [address] PM 11/16/24 [place] [phone] Medicare annual wellness visit, subsequent (Primary Dx) Social History Tobacco Use Types [...] Sign Reading Time Taken Comments Blood Pressure 135/83 11/06/2024 9:24 AM EDT Pulse 82 11/06/2024 9:24 AM EDT Temperature 36.2 C (97.2 F) 11/06/2024 9:24 AM EDT Respiratory Rate 16 11/06/2024 9:24 AM EDT Oxygen Saturation 98% 11/06/2024 9:24 AM EDT Inhaled Oxygen Concentration - - Weight 73.9 kg (163 lb) 11/06/2024 9:24 AM EDT Height - - Body Mass Index 29.81 10/18/2022 9:27 AM EDT documented in this encounter Patient Instructions * Attachments The following attachments cannot be sent through Care Everywhere. * Diet and health (Canadian) documented in this encounter Progress Notes * Lyla Cast, DONNY-FOLDING MACHINE FEEDER - 11/06/2024 9:23 AM EDT Subjective SUBJECTIVE: Patient ID: Igor Pereira is a 64 y.o. male who presents for a Medicare Annual Wellness exam. [facility]. He is accompanied today by RN. Accompanied by RN today. Total care provided by staff, including medication administration. Severe cognitive and intellectual delay. Able to verbalize needs in short phrases and facial expressions. Is monitored by Dr. Palacios for neurogenic bladder, suprapubic catheter. Psychiatry for impulse control, Dr. Sorensen. Podiatry, Dr. Wagner. The following portions of the patient's history were reviewed and updated as appropriate: allergies, current medications, past family history, past medical history, past social history, past surgicalhistory and problem list. Past Surgical History: Procedure Laterality Date BLADDER SURGERY suprapubic catheter placement COLONOSCOPY N/A 02/15/2022 Performed by Imer Box DO at [facility] COLONOSCOPY N/A 12/17/2016 Performed by Imer Box DO at [facility] SPINE [facility]GERY Past Medical History: Diagnosis Date Anemia Anxiety Bilateral impacted cerumen 10/23/2016 Calculus, bladder Cerumen debris on tympanic membrane of both ears 01/29/2017 Colon polyps [place] Hydronephrosis Hypertension Neurogenic bladder Restlessness and agitation 01/10/2017 Spina bifida of lumbar spine [place] Stricture, ureter Suprapubic catheter [place] Urinary tract infection Immunization History Administered Date(s) Administered COVID-19, mRNA, LNP-S, PF, 100mcg/0.5mL Dose 07/17/2021 COVID-19, mRNA, LNP-S, PF, 30mcg/0.3mL Dose 05/30/2020, 06/27/2020 DTaP 06/20/2011 H1N1 Inj 04/27/2009 Influenza (IM) Preservative Free 04/03/2024 Influenza, Injectable, quadrivalent (PF) 03/01/2017, 03/06/2018, 03/03/2019, [...] smokeless tobacco, are you ready to quit?: NA Are you exposed to secondhand smoke?: No On average, how many drinks of alcohol do you consume in a week?: None Do you exercise for 30 or more minutes on average at least 3 days a week?: (!) Never Do you have any tooth, denture, or oral problems?: No Do you snore or has anyone told you that you snore?: No Do you try to eat a balanced diet?: Yes Patient unable to complete due to severe cognative and intellectual delay Fall Risk Have you fallen two or more times in the past year?: No Are you afraid of falling?: No Depression Screening Little interest or pleasure in doing things: (Patient unable to complete due to severe cognative and intellectual delay) Patient unable to complete due to severe cognative and intellectual delay Safety Assessment Patient unable to complete due to severe cognative and intellectual delay Hearing Assessment Personal Health During the past 4 weeks, how would you rate your overall health?: (Patient unable to complete due to severe cognative and intellectual delay) End of Life Planning Patient has legal guardian who assists with decision making. Cognitive Screening Do you have trouble remembering or recalling facts or events?: (Patient unable to complete due to severe cognative and intellectual delay) Clock Drawing Test: Abnormal mini mental exam deferred REVIEW OF SYSTEMS: Review of Systems Reason unable to perform ROS: RN completes ROS due to patient cognative and intellectual delay. Constitutional: Negative for chills, fatigue [...] Does not bruise/bleed easily. Psychiatric/Behavioral: Negative. Objective PHYSICAL EXAMINATION: Vitals: 11/06/24 0924 BP: 135/83 Pulse: 82 Resp: 16 Temp: 36.2 °C (97.2 °F) TempSrc: Oral SpO2: 98% Weight: 73.9 kg (163 lb) Relevant Labs: Lab Results Component Value Date HGBA1C 5.5 11/06/2023 No results found for: MICROALBUR , URINECREAT , ALBCREATRA No results found for: TSH , T4 Lab Results Component Value Date VITD25 29.2 (L) 08/17/2022 Lab Results Component Value Date WBC 7.5 04/08/2024 RBCCOUNT 4.02 (L) 04/08/2024 HGB 12.8 (L) 04/08/2024 HCT 37.0 (L) 04/08/2024 MCV 92 04/08/2024 MCH 31.8 04/08/2024 MCHC 34.5 04/08/2024 RDW 14.4 04/08/2024 PLT 149 (L) 04/08/2024 MPV 10.0 04/08/2024 No results found for: PSA Lab Results Component Value Date SODIUM 139 04/08/2024 K 4.2 04/08/2024 CL 103 04/08/2024 CO2 27 04/08/2024 ANIONGAP 9 04/08/2024 BUN 23 04/08/2024 GLU 68 04/08/2024 CALCIUM 9.2 04/08/2024 TOTALPROTEI 7.0 11/06/2023 ALBUMIN 3.9 11/06/2023 ALKPHOS 77 11/06/2023 AST 14 11/06/2023 ALT 18 11/06/2023 GFR 59 (L) 12/12/2020 GFR >60 12/12/2020 [...] and benefits of procedure explained. Patient completed colonoscopy 2021. Labs per standing orders. Total time spent was 25 minutes: Preparing to see the patient (e.g., review of tests) Obtaining and/or reviewing separately obtained history Performing a medically appropriate examination and/or evaluation Counseling and educating the patient/family/caregiver Ordering medications, tests, or procedures No follow-ups on file. There are no Patient Instructions on file for this visit. EVY Miner 11/09/24 1244 documented in this encounter Plan of Treatment Upcoming Encounters Date Type Department Care Team (Late st Contact Info) Description 12/28/2024 10:00 AM EDT Support Visit [facility] [address] [place] [address] [place] [address] Imer Luna MD [address] [place] [address] documented as of this encounter Visit Diagnoses Diagnosis Medicare annual wellness visit, subsequent- Primary documented in this encounter Additional Health Concerns Assessment Noted Time PHQ-9 Depression Total Score: 0 10/25/19 24 7:00 AM EDT A Body Mass Index follow-up plan has been documented for the patient 10/25/2022 6:43 AM EDT documented as of this encounter Care Teams Parking Technician Relationship Specialty Start Date End Date Lyla Cast APRN-CNP PCP - General Nurse Practitioner 03/19/17 documented as of this encounter
--- OUTSIDE RECORDS SUMMARY | 2024-11-23 06:46 | XMS_ITS | Encounter Summary ---
Author Organization [facility] Address [address] [place] [address] Care Team Providers Care Fixed Interest Dealer Name Role Phone Lyla Cast MAGAN Unavailable [phone] Paul Shipman MD Primary Care Provider + [phone] Encounter Details Date Type Department Care Team ([facility] Contact Info) Description 10/28/2024 Abstract [facility] [address] [place] [address] Anders Wagner DPM [address] [place], [place] [phone] Social History Tobacco Use Types Packs/Day Years [...] Upcoming Encounters Date Type Department Care Team ([facility] Contact Info) Description 11/30/2024 8:45 AM EDT Procedure Visit [facility] [address] [place] [address] Anders Wagner DPM [address] [place], [place] [phone] 12/09/2024 10:45 AM EDT Office Visit [facility] [address] [place] [address] Anders Wagner, DPM [address] [place], [place] [address] documented as of this encounter Visit Diagnoses Not on filedocumented in this encounter Care Teams Fixed Interest Dealer Relationship Specialty Start Date End Date Paul Shipman MD [address] [place] [address] PCP - General Family Medicine 10/01/24 Lyla Cast CRNP [address] [facility] [place] [address] Referring Physician Nurse Practitioner 10/30/22 documented as of this encounter
--- OUTSIDE RECORDS SUMMARY | 2024-11-23 06:46 | XMS_ITS | Encounter Summary ---
Author Organization [employer] tem Address [id number] [address] [place] [address] Care Team Providers Care Flange Turner Name Role Phone Lyla Cast STRAP CUTTER-CLERK RATING Primary Care Provid er Encounter Details Date Type Department Care Team (Late Contact Info) Description 08/11/2019 Telephone [facility] [address] [place] [address] Marla Mix, MARCUS Social History [...] Description 12/28/2024 10:00 AM EDT Support Visit [facility] [address] [place] [address] [place] [address] Imer Luna MD [address] [place] [address] documented as of this encounter Visit Diagnoses Not on filedocumented in this encounter Additional Health Concerns Assessment Noted Time PHQ-9 Depression Total Score: 0 07/13/19 20 2:10 PM EST A Body Mass Index follow-up plan has been documented for the patient 07/19/2019 7:47 PM EST documented as of this encounter Care Teams Flange Turner Relationship Specialty Start Date End Date Lyla Cast, DONNY-CLERK RATING PCP - General Nurse Practitioner 03/19/17 documented as of this encounter
--- OUTSIDE RECORDS SUMMARY | 2024-11-23 06:46 | XMS_ITS | Encounter Summary ---
Author Organization [email or web address] tem Address [id number] [address] [place] [address] Care Team Providers Care Manager Documentation Name Role Phone Lyla Cast BASEBALL SCOUT-UTILITY PORTER Primary Care Provid er Encounter Details Date Type Department Care Team (Late st Contact Info) Description 12/20/2022 Telephone [facility] - Family Medicine [address] [place] [phone] Malinda Milian CMA Social History Tobacco Use Types Packs/Day [...] encounter Miscellaneous Notes * Telephone Encounter - Malinda Milian CMA - 12/20/2022 1:53 PM EDT Pharmacy sent a refill over on Zinc and it would not let me put it in as a refill. * Telephone Encounter - EVY Miner - 12/20/2022 1:53 PM EDT I will address this with RN at [facility]. They just switched to different drug mail delivery for thefacility. Each resident takes mulitple medications and they are not entered correctly. documented in this encounter Plan of Treatment Upcoming Encounters Date Type Department Care Team (Late st Contact Info) Description 12/28/2024 10:00 AM EDT Support Visit [facility] [address] [place] [address] [place] [address] Imer Luna MD [facility] [place] [address] documented as of this encounter Visit Diagnoses Not on filedocumented in this encounter Additional Health Concerns Assessment Noted Time PHQ-9 Depression Total Score: 0 10/19/19 23 9:28 AM EDT A Body Mass Index follow-up plan has been documented for the patient 10/25/2022 6:43 AM EDT documented as of this encounter Care Teams Manager Documentation Relationship Specialty Start Date End Date Lyla Cast APRN-CNP PCP - General Nurse Practitioner 03/19/17 documented as of this encounter
--- OUTSIDE RECORDS SUMMARY | 2024-11-23 06:46 | XMS_ITS | Encounter Summary ---
Author Organization [employer] tem Address [id number] [address] [place] [address] Care Team Providers Care Window Framer Name Role Phone Lyla Cast APRN-FIRE WARDEN Primary Care Provid er Encounter Details Date Type Department Care Team (Late st Contact Info) Description 08/22/2023 Orders Only [facility] - Family Medicine [address] [place] [phone] Lyla Cast APRN-FIRE WARDEN [address] PM 11/16/24 [place] [phone] Social History Tobacco Use Types Packs/Day Years [...] Visit [facility] [address] [place] [address] Imer Luna MD [facility] [place] [address] documented as of this encounter Procedures Procedure Name Priority Date/Time Associated Diagnosis Comments COMPREHENSIVE METABOLIC PANEL Routine 08/22/2023 1:29 PM EDT CBC W AUTO DIFF BLD Routine 08/22/2023 9 :33 AM EDT documented in this encounter Results * Comprehensive metabolic panel (08/22/2023 1:29 PM EDT) us Scanning Provider External LAB BLOOD ORDERABLES Final Result Performing Organization Address City/[facility]/ZIP Co de Phone Number MANUALLY TRANSCRIBED RESULTS * CBC W Auto Diff Bld (08/22/2023 9:33 AM EDT) us Lyla Cast APRN-FIRE WARDEN LAB BLOOD ORDERABLES Final Result Performing Organization Address City/[facility] Co de Phone Number MANUALLY TRANSCRIBED RESULTS documented in this encounter Visit Diagnoses Not on filedocumented in this encounter Additional Health Concerns Assessment Noted Time PHQ-9 Depression Total Score: 0 10/19/19 23 9:28 AM EDT A Body Mass Index follow-up plan has been documented for the patient 10/25/2022 6:43 AM EDT documented as of this encounter Care Teams Window Framer Relationship Specialty Start Date End Date Lyla Cast APRN-CNP PCP - General Nurse Practitioner 03/19/17 documented as of this encounter
--- OUTSIDE RECORDS SUMMARY | 2024-11-23 06:46 | XMS_ITS | Encounter Summary ---
Author Organization [employer] tem Address [id number] [address] [place] [address] Care Team Providers Care Air And Hydronic Balancing Technician Name Role Phone Lyla Cast BSA/AML COMPLIANCE OFFICER-AMMUNITION OFFICER Primary Care Provid er Encounter Details Date Type Department Care Team (Late st Contact Info) Description 11/17/2021 Orders Only [facility] [address] [place] [phone] Lyla Cast BSA/AML COMPLIANCE OFFICER-AMMUNITION OFFICER [address] PM 11/16/24 [place] [phone] Social History Tobacco Use Types Packs/Day Years Used Date Smoking Tobacco: Never Smokeless Tobacco: Never Alcohol Use Standard Drinks/Week Comments No 0 (1 standard drink = 0.6 oz pur e alcohol) PHQ-2 Answer Date Recorded Total Score 0 09/21/2021 Childcare Answer Date Recorded Childcare Unknown 10/28/2018 Employment Answer Date Recorded Employment Unknown 10/28/2018 Purpose - Life Answer Date Recorded Purpose and direction in life Unknown Sex and Gender Information Value Date Recorded Sex Assigned at Not on file Legal Sex Male 11:23 AM EDT Gender Identity Not on file Sexual Orientation Not on file COVID-19 Exposure Response Date Recorded In the last month, have you been in contact with someone who was confirmed or suspected to have Coronavirus / COVID-19? No / Unsure 11/14/2021 10:04 AM EDT documented as of this encounter Plan of Treatment Upcoming Encounters Date Type Department Care Team (Late st Contact Info) Description 12/28/2024 10:00 AM EDT Support Visit [facility] [address] [facility] [place] [address] Imer Luna MD [facility] [place] [address] documented as of this encounter Procedures Procedure Name Priority Date/Time Associated Diagnosis Comments CBC (NO DIFF) Routine 11/17/2021 documented in this encounter Results * CBC without diff (11/17/2021) us Lyla RATLIFF LAB BLOOD ORDERABLES Final Result MANUALLY TRANSCRIBED RESULTS documented in this encounter Visit Diagnoses Not on filedocumented in this encounter Additional Health Concerns Assessment Noted Time PHQ-9 Depression Total Score: 0 09/22/19 22 8:21 AM EDT A Body Mass Index follow-up plan has been documented for the patient 09/25/2021 7:09 AM EDT documented as of this encounter Care Teams Air And Hydronic Balancing Technician Relationship Specialty Start Date End Date Lyla Cast APRN-CNP PCP - General Nurse Practitioner 03/19/17 documented as of this encounter
--- OUTSIDE RECORDS SUMMARY | 2024-11-23 06:46 | XMS_ITS | Encounter Summary ---
Author Organization [employer] tem Address [id number] [address] [place] [address] Care Team Providers Care Plant Control Operator Name Role Phone Lyla Cast MECHANIC DRIVER-MATCHING MACHINE OPERATOR Primary Care Provid er Encounter Details Date Type Department Care Team (Late Contact Info) Description 07/13/2019 Telephone [facility] [address] [place] [address] Marla Mix, MARCUS Social History [...] Description 12/28/2024 10:00 AM EDT Support Visit [facility] [address] [place] [address] [place] [address] Imer Luna MD [address] [place] [address] documented as of this encounter Visit Diagnoses Not on filedocumented in this encounter Additional Health Concerns Assessment Noted Time PHQ-9 Depression Total Score: 0 07/13/19 20 2:10 PM EST A Body Mass Index follow-up plan has been documented for the patient 07/18/2019 6:35 PM EST documented as of this encounter Care Teams Plant Control Operator Relationship Specialty Start Date End Date Lyla Cast, DONNY-MATCHING MACHINE OPERATOR PCP - General Nurse Practitioner 03/19/17 documented as of this encounter
--- OUTSIDE RECORDS SUMMARY | 2024-11-23 06:46 | XMS_ITS | Encounter Summary ---
Author Organization [employer] tem Address [id number] [address] [place] [address] Care Team Providers Care Audiovisual Tech Name Role Phone Lyla Cast BARTENDER-BLOOD TYPER Primary Care Provid er Encounter Details Date Type Department Care Team (Late Contact Info) Description 11/03/2019 Telephone [facility] [address] [place] [address] Marla Mix, MARCUS Social History [...] have Coronavirus / COVID-19? No / Unsure 11/06/2019 10:17 AM EDT documented as of this encounter Plan of Treatment Upcoming Encounters Date Type Department Care Team (Late Contact Info) Description 12/28/2024 10:00 AM EDT Support Visit [facility] [address] [place] [address] [place] [address] Imer Luna MD [facility] [place] [address] documented as of this encounter Visit Diagnoses Not on filedocumented in this encounter Additional Health Concerns Assessment Noted Time PHQ-9 Depression Total Score: 0 07/13/19 20 2:10 PM EST A Body Mass Index follow-up plan has been documented for the patient 09/17/2019 7:29 AM EDT documented as of this encounter Care Teams Audiovisual Tech Relationship Specialty Start Date End Date Lyla Cast, BARTENDER-BLOOD TYPER PCP - General Nurse Practitioner 03/19/17 documented as of this encounter
--- OUTSIDE RECORDS SUMMARY | 2024-11-23 06:46 | XMS_ITS | Encounter Summary ---
Author Organization [employer] tem Address [id number] [address] [place] [address] Care Team Providers Care Neon Sign Installer Name Role Phone Lyla Cast PLANT MECHANIC-EXTERIOR WORK HELPER Primary Care Provid er Encounter Details Date Type Department Care Team (Late Contact Info) Description 09/11/2019 Telephone [facility] [address] [place] [address] Marla Mix, MARCUS Social History [...] have Coronavirus / COVID-19? No / Unsure 09/11/2019 7:29 AM EDT documented as of this encounter Plan of Treatment Upcoming Encounters Date Type Department Care Team (Late Contact Info) Description 12/28/2024 10:00 AM EDT Support Visit [facility] [address] [place] [address] [place] [address] Imer Luna MD [facility] [place] [address] documented as of this encounter Visit Diagnoses Not on filedocumented in this encounter Additional Health Concerns Assessment Noted Time PHQ-9 Depression Total Score: 0 07/13/19 20 2:10 PM EST A Body Mass Index follow-up plan has been documented for the patient 07/19/2019 7:47 PM EST documented as of this encounter Care Teams Neon Sign Installer Relationship Specialty Start Date End Date Lyla Cast, PLANT MECHANIC-EXTERIOR WORK HELPER PCP - General Nurse Practitioner 03/19/17 documented as of this encounter
--- OUTSIDE RECORDS SUMMARY | 2024-11-23 06:46 | XMS_ITS | Encounter Summary ---
Author Organization [facility] Address [address] [place] [address] Care Team Providers Care Information Systems Director Name Role Phone Lyla Cast MAGAN Unavailable [phone] Paul Shipman MD Primary Care Provider + [phone] Encounter Details Date Type Department Care Team ([facility] Contact Info) Description 10/01/2024 Abstract [facility] [address] [place] [address] Anders Wagner DPM [address] [place], [place] [phone] Social History Tobacco Use Types Packs/Day Years [...] Upcoming Encounters Date Type Department Care Team ([facility] Contact Info) Description 11/30/2024 8:45 AM EDT Procedure Visit [facility] [address] [place] [address] Anders Wagner DPM [address] [place], [place] [phone] 12/09/2024 10:45 AM EDT Office Visit [facility] [address] [place] [phone] Anders Wagner, DPM [address] [place], [place] [phone] documented as of this encounter Visit Diagnoses Not on filedocumented in this encounter Care Teams Information Systems Director Relationship Specialty Start Date End Date Paul Shipman MD [address] [place] [place] [address] PCP - General Family Medicine 10/01/24 Lyla Cast CRNP [address] [facility] [place] [phone] Referring Physician Nurse Practitioner 10/30/22 documented as of this encounter
--- OUTSIDE RECORDS SUMMARY | 2024-11-23 06:46 | XMS_ITS | Clinical Summary ---
Author Organization [employer] [facility] Address [id number] [address] [place] [address] Care Team Providers Care Geospatial Systems Integrator Name Role Phone Ne Casterie Enrique PATIENT SCHEDULING MANAGER-MASTER BLACK BELT Primary Care Provid er Allergies No known active allergies Medications * This document contains information received from the source organization and may not represent a complete record from that organization. ammonium lactate (AMLACTIN) 12 % cream Apply 1 Application topically as needed for dry skin. Active multivitamin with iron (TAB-A-KENA/IRON ORAL) See Admin Instructions. Active polyethylene glycol (GLYCOLAX) 17 gram/dose powder MIX 17 GRAMS IN 8 OZ OF WATER AND TAKE BY MOUTH NEEDED FOR NO STOOL IN 2 DAYS (DATE, TIME, INITIAL, EFFECT) 238 g 12/28/19 23 Active CHEST CONGESTION RELIEF 100 mg/5 mL syrup TAKE 10 ML BY MOUTH EVERY 6 HOURS NEEDED FOR COUGH 473 mL 12/28/19 23 Active CALMOSEPTINE 0.44-20.6 % ointment APPLY TOPICALLY TO BUTTOCK TWICE DAILY;APPLY TOPICALLY TO BUTTOCK NEEDED 113 g 12/28/19 23 Active DERMACERIN cream APPLY TOPICALLY TO SITES ON BILATERAL FEET ONCE EVERY DAY (6AM) 106 g 12/28/19 23 Active PROCTOZONE-HC 2.5 % rectal cream APPLY TO RECTAL AREA 2 TIMES DAILY NEEDED FOR HEMORRHOIDS UNTIL RESOLVED (DATE, TIME, INITIAL, EFFECT) 30 g 12/28/19 23 Active sodium chloride, bottle, (NS) 0.9 % irrigation CLEANSE RIGHT FOOT & APPLY MESALT DRESSING ONCE EVERY DAY AFTER SHOWERS (6AM) 500 mL 12/28/19 23 Active sterile water irrigationIndicati ons:Suprapubic catheter (CMS-HCC) USE 30 CC'S TO IRRIGATE KLEIN CATHETER ONCE WEEKLY;USE 30 CC'S TO IRRIGATE KLEIN CATHETER NEEDED (IF NOT USING SOD CHLORIDE) 500 mL 12/28/19 23 Active TRIPLE ANTIBIOTIC 3.5mg-400 unit- 5,000 unit/gram ointment APPLY TOPICALLY TO SCRATCHES DAILY NEEDED (DATE, TIME, INITIAL, EFFECT) 28 g 01/05/20 23 Active psyllium husk, with sugar, (METAMUCIL FIBER THIN) 2 gram waferIndications:C hronic constipation TAKE 2 WAFERS BY MOUTH ONCE EVERY DAY WITH MORNING MEDS 60 Wafer 05/09/20 23 Active acidophilus-pectin , citrus 100 million cell-10 mg capsule TAKE 1 CAPSULE BY MOUTH THREE TIMES DAILY (8AM,3PM,8PM) 93 capsule 11/30/19 24 Active citalopram (CeleXA) 40 mg tabletIndications: Other obsessive-compulsi ve disorders Take 1 tablet (40 mg total) by mouth in the morning. 31 tablet 12/20/19 24 Active amLODIPine (NORVASC) 2.5 mg tablet take 1 tablet by mouth once every day 31 tablet 12/31/19 24 Active dilTIAZem CD (CARDIZEM CD) 240 mg 24 hr capsule TAKE 1 CAPSULE BY MOUTH ONCE EVERY DAY 31 capsule 12/31/19 24 Active FeroSuL 325 mg (65 mg iron) tablet TAKE 1 TABLET BY MOUTH ONCE EVERY DAY WITH BREAKFAST 31 tablet 12/31/19 24 Active lisinopriL (PRINIVIL,ZESTRIL) 30 mg tablet take 1 tablet by mouth once every day 31 tablet 12/31/19 24 Active SENNA PLUS 8.6-50 mg TAKE 2 TABLETS (17.2-100MG) BY MOUTH EVERY NIGHT AT BEDTIME 62 tablet 12/31/19 24 Active simvastatin (ZOCOR) 10 mg tablet take 1 tablet by mouth every night at bedtime 31 tablet 12/31/19 24 Active TAB-A-KENA MULTIVITAMIN W-IRON 18-400 mg-mcg tabletIndications: Chronic constipation take 1 tablet by mouth once every day 31 tablet 12/31/19 24 Active MYRBETRIQ 50 mg tablet extended release 24 hr take 1 tablet by mouth once every day 31 tablet 01/01/20 24 Active oxybutynin XL (DITROPAN XL) 15 mg 24 hr tablet TAKE 1 TABLET BY MOUTH ONCE EVERY DAY (8PM) 31 tablet 01/01/20 24 Active ENEMA DISPOSABLE 19-7 gram/118 mL enema INSERT 1 SUPPOSITORY RECTALLY NEEDED IF NO BOWEL MOVEMENT AFTER 3 DAYS (DATE, TIME, INITIAL, EFFECT) 266 mL 01/06/20 24 Active zinc gluconate 50 mg tabletIndications: Pressure ulcer of right foot, stage 1 Take 1 tab by mouth once every day 31 tablet 11 01/08/20 24 Active risperiDONE (RisperDAL) 2 mg tabletIndications: Restlessness and agitation Take 1 tablet (2 mg total) by mouth in the morning and 1 tablet (2 mg total) before bedtime. 60 tablet 12 02/19/20 24 Active meloxicam (MOBIC) 7.5 mg tabletIndications: Osteoarthritis of multiple joints, unspecified osteoarthritis type take 1 tablet by mouth every morning 31 tablet 02/11/20 24 Active psyllium husk, with sugar, (METAMUCIL FIBER THIN) 2.5 gram wafer TAKE 2 WAFERS BY MOUTH ONCE EVERY DAY WITH MORNING MEDS 60 each 03/30/20 24 Active lactulose (CHRONULAC) 10 gram/15 mL solution TAKE 15 ML (10GM) BY MOUTH TWICE DAILY 946 mL 05/11/20 24 Active LORazepam (ATIVAN) 2 mg tabletIndications: Anxiety due to invasive procedure,Impulse control disorder,Intellect ual disability TAKE 1 TABLET BY MOUTH 1 HR PRIOR TO PHYSICIAN APPTS, PROCEDURES, LAB DRAWS OR DIAGNOSTIC TESTING NEEDED 10 tablet 1 05/25/19 25 Active acetaminophen (TYLENOL) 325 mg tablet TAKE 2 TABLETS (650MG) BY MOUTH EVERY 4 HOURS NEEDED FOR PAIN AND/OR TEMP (MAXIMUM LIMIT OF ACETAMINOPHEN FROM ALL SOURCES IS 4000 MG IN 24 HOURS) 60 tablet 11 08/11/19 25 Active divalproex (DEPAKOTE ER) 500 mg 24 hr tabletIndications: Impulse control disorder Take 2 tablets (1,000 mg total) by mouth nightly. 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 Managed with suprapubic tube. In 2008 I had met with his parents to discuss performing a urinary diversion for the patient and at that time the patient's parents did not want to proceed with that. As time has gone on the patient has become more more combative with his suprapubic tube changes requiring 3 people to try to change this along with oral sedation. I had a long discussion with his sister who is the [id number] along with his primary caregiver. I do believe that a urinary diversion would be in his best interest. Although there are potential short-term issues as well as the risks of major operations which were reviewed with him today long-term this would allow him not to have a suprapubic tube in place. All questions were answered for them. At his next visit she is planning to accompany the suprapubic tube changed to see what is entailed with changing this. Additionally they are going to provide me with his recent labs 10/16/22: Doing well with SP tube. Changed eery 6-8 weeks. Plan to continue using combination of Myrbetriq 50 mg and oxybutynin extended release 15 mg. 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 Date Type Department Care Team Description 11/20/2024 Refill [facility] [address] [address] Lyla Cast APRN-MASTER BLACK BELT 11/17/2024 10:30 AM EDT Clinical Support [facility] [address] [facility] [place] [address] Vincenzo Palacios MD Suprapubic catheter ([facility]) (Primary Dx) 11/06/2024 Continuing Care [facility] [address] [place] [address] Lyla Cast PATIENT SCHEDULING MANAGER-MASTER BLACK BELT Medicare annual wellness visit, subsequent (Primary Dx) 10/13/2024 11:30 AM EDT Clinical Support [facility] [address] [place] [address] [place] [address] Vincenzo Palacios MD Spastic neurogenic bladder (Primary Dx) 10/13/2024 Travel 10/02/2024 Orders Only [facility] [address] [place] [address] Ref Prov, Not In System 09/25/2024 Continuing Care [facility] [address] [place] [address] Lyla Cast PATIENT SCHEDULING MANAGER-MASTER BLACK BELT Primary hypertension (Primary Dx); Impulse control disorder; Intellectual disability; Mixed hyperlipidemia; Chronic constipation 09/15/2024 9:30 AM EDT Clinical Support [facility] [address] [place] [address] [place] [address] [place] [address] Vincenzo Palacios MD Spastic neurogenic bladder (Primary Dx) 08/24/2024 Orders Only [facility] [address] [place] [address] Ref Prov, Not In System from Last 3 Months Immunizations Immunization Administration Dates Next Due COVID-19, mRNA, LNP-S, PF, 3 0mcg/0.3mL Dose 06/27/2020,05/30/2020 DTaP 06/20/2011 H1N1 Inj 04/27/2009 Influenza (IM) Preservative Free 04/03/2024 Influenza, Injectable, quadr ivalent (PF) 03/22/2023,03/26/2022,03/20/2021,03/10,03/03/2019,03/06/2018,03/01/2017 Influenza, Unspecified 03/01/2017 MMR 10/29/1983 Pneumococcal Polysaccharide 04/17/2013, 6 Td (adult), 2 Lf tetanus tox oid, preservative free, adsorbed 03/09/1985,03/10/1984,10/29/1983 Tdap 07/13/1994 Zoster Live 04/21/2019,01/27/2019 Zoster Vaccine Recombinant 04/21/2019,01/27/2019 Family History Medical History Relation Name Comments Heart failure Father Bipolar disorder Mother Heart disease Mother Hyperlipidemia Mother Hypertension Mother Parkinsonism Mother Hyperlipidemia Sister Hypertension Sister Relation Name Status Comments Father Mother Alive Sister Alive Social History Tobacco Use Types Packs/Day Years Used Date Smoking Tobacco: Never Smokeless Tobacco: Never Tobacco Cessation:Counseling Given: No Alcohol Use Standard Drinks/Week Comments No 0 [...] (163 lb) 11/06/2024 9:24 AM EDT Height 157.5 cm (5' 2 ) 10/18/2022 9:27 AM EDT Body Mass Index 29.81 10/18/2022 9:27 AM EDT Plan of Treatment Upcoming Encounters Date Type Department Care Team (Late st Contact Info) Description 12/28/2024 10:00 AM EDT Support Visit [facility] [address] [place] [address] [place] [address] [place] [address] Imer Luna MD [address] [place], [place] [id number] Health Maintenance Due Date Last Done Comments COVID-19 Vaccine (2023-2 5 season) 2024 07/17/2021, 06/27/2020, 05/30/2020 Depression Screening 10/24/2024 10/25/2023 Influenza Vaccine 01/18/2025 04/03/2024, , 03/26/2022, Additional history exists Tobacco Screening 10/13/2025 10/13/2024 Adult BMI Screening 11/06/2025 11/06/2024 Colonoscopy 02/16/2032 02/15/2022, 01/19, 12/17/2016 Zoster (Shingles) Vaccine Completed 2018, 04/21/2019, 01/27/2019, Additional history exists DTaP,Tdap and Td Vaccines Discontinued 2022, 06/20/2011, 07/13/1994, Additional history exists Medical Devices Not on file Procedures Procedure Name Priority Date/Time Associated Diagnosis Comments XR HAND RT 2 VWS Routine 09/14/2024 7:20 AM EDT XR HAND RT 2 VWS Routine 08/24/2024 11:5 1 AM EDT COLONOSCOPY 02/15/2022 7:14 AM EDT from Last 3 Months or Most Recently Relevant to Health Maintenance Results * X-ray hand right 2 views (09/14/2024 7:20 AM EDT) Only the most recent of2 resultswithin the time period is included. Anatomical Region Laterality Modality Upper Extremities, MSK, Hand Right Com puted Radiography us Not In System Ref Prov IMG DIAGNOSTIC IMAGING OR DERABLES Final Result * Colonoscopy (02/15/2022 7:14 AM EDT) 02/15/2022 7:14 AM EDT Narrative PM CARDIOVASCULAR - 02/15/2022 7:55 AM EDT [facility] Patient Name: Igor Pereira Procedure Date No Time: 02/15/2022 CSN : [id number] Date of : 1960 Admit Type: Outpatient Age: 61 Room: [place] [address] Gender: Male Note Status: Finalized Attending MD: Imer Box DO Procedure: Colonoscopy Indications: Screening for colorectal malignant neoplasm, High risk colon cancer surveillance: Personal history of colonic polyps Providers: Imer Box DO Referring MD: Imer Box DO Medicines: Propofol per Anesthesia Complications: No immediate complications. Procedure: After I obtained informed consent, the scope was passed under direct vision. Throughout the procedure, the patient's blood pressure, pulse, and oxygen saturations were monitored continuously. The [facility] PCF-[id number] # [id number] PEDIATRIC COLONOSCOPE was introduced through the anus and advanced to the ascending colon. The colonoscopy was performed without difficulty. The colonoscopy was performed with difficulty due to inadequate bowel prep. The patient tolerated the procedure well. The quality of the bowel preparation was poor. Findings: The perianal and digital rectal examinations were normal. Estimated Blood Loss: Estimated blood loss: none. Impression: - Preparation of the colon was poor. - No specimens collected. Recommendation: - Discharge patient to home. - Patient has a contact number available for emergencies. The signs and symptoms of potential delayed complications were discussed with the patient. Return to normal activities tomorrow. Written discharge instructions were provided to the patient. - Repeat colonoscopy in 6 months because the bowel preparation was suboptimal. - Return to my office PRN. Procedure Code(s): --- Professional --- G0105, 53, Colorectal cancer screening; colonoscopy on individual at high risk Diagnosis Code(s): --- Professional --- Z86.010, Personal history of colonic polyps Z12.11, Encounter for screening for malignant neoplasm of colon CPT copyright 2020 [employer]. All rights reserved. The codes documented in this report are preliminary and upon hoseman review may be revised to meet current compliance requirements. DO Imer Davalos DO 02/15/2022 7:55:07 AM Number of Addenda: 0 Note Initiated On: 02/15/2022 7:14 AM Procedure Note Imer Box DO - 02/15/2022 [facility] Patient Name: Igor Pereira Procedure Date No Time: 02/15/2022 CSN : [id number] Date of : 1960 Admit Type: Outpatient Age: 61 Room: [place] [address] Gender: Male Note Status: Finalized Attending MD: Imer Box DO Procedure: Colonoscopy Indications: Screening for colorectal malignant neoplasm, Highrisk colon cancer surveillance: Personal history ofcolonic polyps Providers: Imer Box DO Referring MD: Imer Box DO Medicines: Propofol per Anesthesia Complications: No immediate complications. Procedure: After I obtained informed consent, the scope was passed under direct vision. Throughout theprocedure, the patient's blood pressure, pulse, and oxygen saturations were monitored continuously. [id number] [id number] PEDIATRIC COLONOSCOPE was introduced through the anus and advanced to the ascending colon. The colonoscopy was performedwithout difficulty. The colonoscopy was performed with difficulty due to inadequate bowel prep. Thepatient tolerated the procedure well. The quality of thebowel preparation was poor. Findings: The perianal and digital rectal examinations were normal. Estimated Blood Loss: Estimated blood loss: none. Impression: - Preparation of the colon was poor. - No specimens collected. Recommendation: - Discharge patient to home. - Patient has a contact number available for emergencies. The signs and symptoms of potential delayed complications were discussed with thepatient. Return to normal activities tomorrow. Written discharge instructions were provided to thepatient. - Repeat colonoscopy in 6 months because the bowel preparation was suboptimal. - Return to my office PRN. Procedure Code(s): --- Professional --- G0105, 53, Colorectal cancer screening; colonoscopyon individual at high risk Diagnosis Code(s): --- Professional --- Z86.010, Personal history of colonic polyps Z12.11, Encounter for screening for malignant neoplasm of colon CPT copyright 2020 [employer]. All rights reserved. The codes documented in this report are preliminary and upon hoseman reviewmay be revised to meet current compliance requirements. DO Imer Davalos DO 02/15/2022 7:55:07 AM Number of Addenda: 0 Note Initiated On: 02/15/2022 7:14 AM Imer Box DO GI PROCEDURE ORDERABLES Fin al Result PM CARDIOVASCULAR from Last 3 Months or Most Recently Relevant to Health Maintenance Insurance MEDICARE MEDICAID [place] Care Teams Geospatial Systems Integrator Relationship Specialty Start Date End Date Lyla Cast APRN-SHON PCP - General Nurse Practitioner 03/19/17
--- OUTSIDE RECORDS SUMMARY | 2024-11-23 06:46 | XMS_ITS | Encounter Summary ---
Author Organization [employer] tem Address [id number] [address] [place] [address] Care Team Providers Care Fish Bailer Name Role Phone Lyla Cast CURATOR OF PHOTOGRAPHY AND PRINTS-ANCILLARY SERVICES MANAGER Primary Care Provid er Encounter Details Date Type Department Care Team (Late Contact Info) Description 09/21/2019 Telephone [facility] [address] [place] [address] Marla Mix, MARCUS Social History [...] have Coronavirus / COVID-19? No / Unsure 09/24/2019 9:55 AM EDT documented as of this encounter Plan of Treatment Upcoming Encounters Date Type Department Care Team (Late Contact Info) Description 12/28/2024 10:00 AM EDT Support Visit [facility] [address] [place] [address] [place] [address] Imer Luna MD [facility] [place] [address] documented as of this encounter Visit Diagnoses Not on filedocumented in this encounter Additional Health Concerns Assessment Noted Time PHQ-9 Depression Total Score: 0 07/13/19 20 2:10 PM EST A Body Mass Index follow-up plan has been documented for the patient 09/17/2019 7:29 AM EDT documented as of this encounter Care Teams Fish Bailer Relationship Specialty Start Date End Date Lyla Cast, CURATOR OF PHOTOGRAPHY AND PRINTS-ANCILLARY SERVICES MANAGER PCP - General Nurse Practitioner 03/19/17 documented as of this encounter
--- OUTSIDE RECORDS SUMMARY | 2024-11-23 06:46 | XMS_ITS | Encounter Summary ---
Author Organization [employer] Address [id number] [address] [place] [address] Care Team Providers Care [place] Tribunal Member Name Role Phone Lyla Cast MATERIALS ASSISTANT-ROLLER REPAIRER Primary Care Provid er Encounter Details Date Type Department Care Team (Late Contact Info) Description 10/25/2021 Orders Only [facility] [address] [place] [facility] [place] [address] Ref Prov, [place] [address] Social History Tobacco Use Types Packs/Day Years [...] suspected to have Coronavirus/COVID-19? No / Unsure 10/10/2021 11:41 AM EDT documented as of this encounter Plan of Treatment Upcoming Encounters Date Type Department Care Team (Late Contact Info) Description 12/28/2024 10:00 AM EDT Support Visit [facility] [address] [place] [address] Imer Luna MD [address] [place] [address] documented as of this encounter Procedures Procedure Name Priority Date/Time Associated Diagnosis Comments MULTIPLE LABS Routine 10/25/2021 documented in this encounter Results * Multiple labs (10/25/2021) us Not In System Ref Prov LA IMAGING Final Res ult MANUALLY TRANSCRIBED RESULTS documented in this encounter Visit Diagnoses Not on filedocumented in this encounter Additional Health Concerns Assessment Noted Time PHQ-9 Depression Total Score: 0 09/22/19 22 8:21 AM EDT A Body Mass Index follow-up plan has been documented for the patient 09/25/2021 7:09 AM EDT documented as of this encounter Care Teams [place] Tribunal Member Relationship Specialty Start Date End Date Lyla Cast, MATERIALS ASSISTANT-ROLLER REPAIRER PCP - General Nurse Practitioner 03/19/17 documented as of this encounter
--- OUTSIDE RECORDS SUMMARY | 2024-11-23 06:46 | XMS_ITS | Encounter Summary ---
Author Organization [facility] Address [address] [place] [address] Care Team Providers Care Respiratory Therapy Technician Name Role Phone Lyla Cast MAGAN Unavailable [phone] Paul Shipman MD Primary Care Provider + [phone] Encounter Details Date Type Department Care Team ([facility] Contact Info) Description 11/18/2024 Bamboo flowsheet [facility] [address] [place] [address] Anders Wagner DPM [address] [place], [place] [id number] Social History Tobacco Use Types Packs/Day Years [...] Upcoming Encounters Date Type Department Care Team ([facility] Contact Info) Description 11/30/2024 8:45 AM EDT Procedure Visit [facility] [address] [place] [address] Anders Wagner DPM [address] [place], [place] [id number] 12/09/2024 10:45 AM EDT Office Visit [facility] [address] [place] [address] Anders Wagner, DPM [address] [facility] [place], [place] [id number] documented as of this encounter Visit Diagnoses Not on filedocumented in this encounter Care Teams Respiratory Therapy Technician Relationship Specialty Start Date End Date Paul Shipman MD [address] [place] [address] PCP - General Family Medicine 10/01/24 Lyla Cast CRNP [address] [facility] [place] [address] Referring Physician Nurse Practitioner 10/30/22 documented as of this encounter
--- OUTSIDE RECORDS SUMMARY | 2024-11-23 06:46 | XMS_ITS | Encounter Summary ---
Author Organization [employer] tem Address [facility] [id number] [address] [place] [address] Care Team Providers Care Snuff Packing Machine Operator Name Role Phone Lyla Cast MANUFACTURING PROJECT MANAGER-SPECIAL EFFECTS MAKEUP ARTIST Primary Care Provid er Encounter Details Date Type Department Care Team (Late st Contact Info) Description 03/27/2022 Telephone [facility] [address] [place] [address] [place] [address] [place] [address] Rita Mendez CMA Social History Tobacco Use Types Packs/Day Years Used Date Smoking Tobacco: Never Smokeless Tobacco: Never Alcohol Use Standard Drinks/Week Comments No 0 (1 standard drink = 0.6 oz pur e alcohol) PHQ-2 Answer Date Recorded Total Score 0 01/03/2022 Childcare Answer Date Recorded Childcare Unknown 10/28/2018 [...] have Coronavirus / COVID-19? No / Unsure 03/27/2022 9:50 AM EST documented as of this encounter Miscellaneous Notes * Telephone Encounter - Rita Mendez CMA - 03/27/2022 10:19 AM EST Pt came in for sp hull change. Online Marketer stated pt has been having severe incontinence. He says heis not sure if its coming thru the hull or pt's penis. Several times a day they have to change him. Pt's anxiety has worsened and the dr has changed pt's medication. Pt still tends to pick at the leg bag buttons and hull at the insertion site. * Telephone Encounter - Vincenzo Palacios MD - 03/27/2022 10:19 AM EST He had been on combination oxybutynin and Myrbetriq but it appears from the med list that the patient is not taking the Myrbetriq. I would suggest we retry that in combination with the oxybutynin * Telephone Encounter - Rita Mendez CMA - 03/27/2022 10:19 AM EST According to pt's home facility pt is still taking the combination of Oxybutynin and Myrbetriq. I did add the Myrbetriq back in his med list. She stated pt has been shredding the leg bag, and it pulls on the hull. He is leaking around the the insertion site of hull catheter. documented in this encounter Plan of Treatment Upcoming Encounters Date Type Department Care Team (Late st Contact Info) Description 12/28/2024 10:00 AM EDT Support Visit [facility] [address] [place] [address] [place] [address] [address] Imer Luna MD [facility] [place] [address] documented as of this encounter Visit Diagnoses Not on filedocumented in this encounter Additional Health Concerns Assessment Noted Time PHQ-9 Depression Total Score: 0 01/04/20 3:07 PM EDT A Body Mass Index follow-up plan has been documented for the patient 09/25/2021 7:09 AM EDT documented as of this encounter Care Teams Snuff Packing Machine Operator Relationship Specialty Start Date End Date Lyla Cast APRN-SPECIAL EFFECTS MAKEUP ARTIST PCP - General Nurse Practitioner 03/19/17 documented as of this encounter
--- OUTSIDE RECORDS SUMMARY | 2024-11-23 06:46 | XMS_ITS | Encounter Summary ---
Author Organization [employer] tem Address [facility] [id number] [address] [place] [address] Care Team Providers Care Band Scroll Saw Operator Name Role Phone Lyla Cast MICROSOFT BI CONSULTANT-COUTURE DRESSMAKER Primary Care Provid er Encounter Details Date Type Department Care Team (Late st Contact Info) Description 10/02/2024 Orders Only [facility] [address] [place] [address] Ref Prov, [place] [address] Social History Tobacco Use Types Packs/Day Years [...] Visit [facility] [address] [facility] [place] [address] Imer Luna MD [address] [place] [address] documented as of this encounter Procedures Procedure Name Priority Date/Time Associated Diagnosis Comments XR HAND RT 2 VWS Routine 09/14/2024 7:20 AM EDT documented in this encounter Results * X-ray hand right 2 views (09/14/2024 7:20 AM EDT) Anatomical Region Laterality Modality Upper Extremities, MSK, Hand Right Com puted Radiography us Not In System Ref Prov IMG DIAGNOSTIC IMAGING OR DERABLES Final Result documented in this encounter Visit Diagnoses Not on filedocumented in this encounter Additional Health Concerns Assessment Noted Time PHQ-9 Depression Total Score: 0 10/25/19 7:00 AM EDT A Body Mass Index follow-up plan has been documented for the patient 10/25/2022 6:43 AM EDT documented as of this encounter Care Teams Band Scroll Saw Operator Relationship Specialty Start Date End Date Lyla Cast APRN-COUTURE DRESSMAKER PCP - General Nurse Practitioner 03/19/17 documented as of this encounter
--- OUTSIDE RECORDS SUMMARY | 2024-11-23 06:46 | XMS_ITS | Encounter Summary ---
Author Organization [employer] tem Address [facility] [id number] [address] [place] [address] Care Team Providers Care Semi Truck Driver Name Role Phone Lyla Cast APRN-REELING MACHINE OPERATOR Primary Care Provid er Encounter Details Date Type Department Care Team (Late st Contact Info) Description 08/23/2023 Orders Only [facility] [address] [place] [address] Lyla Cast APRN-REELING MACHINE OPERATOR [address] PM 11/16/24 [place] [address] Social History Tobacco Use Types Packs/Day Years [...] Support Visit [facility] [address] [place] [address] [place] [address] Imer Luna MD [facility] [place] [address] documented as of this encounter Procedures Procedure Name Priority Date/Time Associated Diagnosis Comments VITAMIN D 25 HYDROXY Routine 08/22/2023 10:34 AM EDT documented in this encounter Results * Vitamin D 25 hydroxy (08/22/2023 10:34 AM EDT) us Scanning Provider External LAB BLOOD ORDERABLES Final Result MANUALLY TRANSCRIBED RESULTS documented in this encounter Visit Diagnoses Not on filedocumented in this encounter Additional Health Concerns Assessment Noted Time PHQ-9 Depression Total Score: 0 10/19/19 9:28 AM EDT A Body Mass Index follow-up plan has been documented for the patient 10/25/2022 6:43 AM EDT documented as of this encounter Care Teams Semi Truck Driver Relationship Specialty Start Date End Date Lyla Cast, POULTRY HUSBANDRY TEACHER-REELING MACHINE OPERATOR PCP - General Nurse Practitioner 03/19/17 documented as of this encounter
--- OUTSIDE RECORDS SUMMARY | 2024-11-23 06:46 | XMS_ITS | Encounter Summary ---
Author Organization [facility] Address [address] [place] [address] Care Team Providers Care Oil Well Service Unit Operator Name Role Phone Ricky Quintana MD Primary Care Provider + [phone] Lyla Cast Unavailable [phone] Paul Shipman MD Primary Care Provider + [phone] Encounter Details Date Type Department Care Team (Late st Contact Info) Description 08/19/2024 Abstract [facility] [address] [place] [address] Anders Wagner DPM [address] [place], [place] [address] Social History Tobacco Use Types Packs/Day Years [...] AM EDT Procedure Visit [facility] [address] [place] [address] Anders Wagner DPM [address] [place], [place] [phone] 12/09/2024 10:45 AM EDT Office Visit [facility] [address] [place] [address] Anders Wagner DPM [address] [place] [address] documented as of this encounter Visit Diagnoses Not on filedocumented in this encounter Care Teams Oil Well Service Unit Operator Relationship Specialty Start Date End Date Ricky Quintana MD [address] [place] [address] PCP - General Family Medicine 10/30/22 09/30/24 Paul Shipman MD [address] [place] [address] PCP - General Family Medicine 10/01/24 Lyla Cast CRNP [address] [place] [address] Referring Physician Nurse Practitioner 10/30/22 documented as of this encounter
--- OUTSIDE RECORDS SUMMARY | 2024-11-23 06:46 | XMS_ITS | Encounter Summary ---
Author Organization [employer] tem Address [facility] [id number] [address] [place] [address] Care Team Providers Care Ict Analyst Name Role Phone Lyla Cast DAG COATER-CHEESE COOK Primary Care Provid er Encounter Details Date Type Department [facility] Description 07/04/2021 Orders Only [facility] [address] [facility] [place] [address] Ref Prov, [place] [address] Social History Tobacco Use Types Packs/Day Years [...] have Coronavirus / COVID-19? No / Unsure 06/20/2021 9:34 AM EST documented as of this encounter Plan of Treatment Upcoming Encounters Date Type Department Care Team [facility] Contact Info) Description 12/28/2024 10:00 AM EDT Support Visit [facility] [address] [place] [address] Imer Luna MD [address] [place] [address] documented as of this encounter Procedures Procedure Name Priority Date/Time Associated Diagnosis Comments MULTIPLE LABS Routine 03/13/2021 documented in this encounter Results * Multiple labs (03/13/2021) us Not In System Ref Prov SC IMAGING Final Res ult MANUALLY TRANSCRIBED RESULTS documented in this encounter Visit Diagnoses Not on filedocumented in this encounter Additional Health Concerns Assessment Noted Time PHQ-9 Depression Total Score: 0 12/09/19 21 8:33 AM EDT A Body Mass Index follow-up plan has been documented for the patient 06/29/2021 12:50 PM EST documented as of this encounter Care Teams Ict Analyst Relationship Specialty Start Date End Date Lyla Cast, DAG COATER-CHEESE COOK PCP - General Nurse Practitioner 03/19/17 documented as of this encounter
--- OUTSIDE RECORDS SUMMARY | 2024-11-23 06:46 | XMS_ITS | Encounter Summary ---
Author Organization [facility] Address [address] [place] [address] Care Team Providers Care Greenhouse Florist Name Role Phone Lyla Cast MAGAN Unavailable [phone] Paul Shipman MD Primary Care Provider + [phone] Encounter Details Date Type Department Care Team ([facility] Contact Info) Description 11/18/2024 Abstract [facility] [address] [place] [address] Anders Wagner DPM [address] [place], [place] [phone] Social History Tobacco Use Types Packs/Day Years [...] Upcoming Encounters Date Type Department Care Team ([facility] Contact Info) Description 11/30/2024 8:45 AM EDT Procedure Visit [facility] [address] [place] [address] Anders Wagner DPM [address] [place], [place] [address] 12/09/2024 10:45 AM EDT Office Visit [facility] [address] [place] [address] Anders Wagner, DPM [address] [place], [place] [address] documented as of this encounter Visit Diagnoses Not on filedocumented in this encounter Care Teams Greenhouse Florist Relationship Specialty Start Date End Date Paul Shipman MD [address] [place] [address] PCP - General Family Medicine 10/01/24 Lyla Cast CRNP [address] [facility] [place] [address] Referring Physician Nurse Practitioner 10/30/22 documented as of this encounter
--- OUTSIDE RECORDS SUMMARY | 2024-11-23 06:46 | XMS_ITS | Encounter Summary ---
Author Organization [facility] Address [address] [place] [address] Care Team Providers Care Customizer Name Role Phone Ricky Quintana MD Primary Care Provider + [phone] Lyla Cast Unavailable [phone] Paul Shipman MD Primary Care Provider + [phone] Encounter Details Date Type Department Care Team (Late Contact Info) Description 10/31/2022 [facility] [address] [place] [address] Anders Wagner DPM [address] [place], [place] [phone] Social History Tobacco Use Types Packs/Day Years [...] Department Care Team (Late Contact Info) Description 11/30/2024 8:45 AM EDT [facility] [address] [place] [address] Anders Wagner DPViktoria [address] [place], [place] [address] 12/09/2024 10:45 AM EDT [facility] [address] [place] [address] Anders Wagner DPM [address] [place] [address] documented as of this encounter Visit Diagnoses Not on filedocumented in this encounter Care Teams Customizer Relationship Specialty Start Date End Date Ricky Quintana MD [address] [facility], [place] [address] PCP - General Family Medicine 10/30/22 09/30/24 Paul Shipman MD [address] [place] [address] PCP - General Family Medicine 10/01/24 Lyla Cast CRNP [address] [facility] [place] [address] Referring Physician Nurse Practitioner 10/30/22 documented as of this encounter
--- OUTSIDE RECORDS SUMMARY | 2024-11-23 06:46 | XMS_ITS | Encounter Summary ---
Author Organization [employer] tem Address [id number] [address] [place] [address] Care Team Providers Care Monitor Worker Name Role Phone Lyla Cast DELIVERY HELPER-JOURNEY LINEMAN Primary Care Provid er Encounter Details Date Type Department Care Team (Late Contact Info) Description 09/30/2019 Telephone [facility] [address] [place] [address] Marla Mix, MARCUS Social History [...] have Coronavirus / COVID-19? No / Unsure 10/02/2019 11:08 AM EDT documented as of this encounter Plan of Treatment Upcoming Encounters Date Type Department Care Team (Late Contact Info) Description 12/28/2024 10:00 AM EDT Support Visit [facility] [address] [place] [address] [place] [address] Imer Luna MD [facility] [place] [address] documented as of this encounter Visit Diagnoses Not on filedocumented in this encounter Additional Health Concerns Assessment Noted Time PHQ-9 Depression Total Score: 0 07/13/19 20 2:10 PM EST A Body Mass Index follow-up plan has been documented for the patient 09/17/2019 7:29 AM EDT documented as of this encounter Care Teams Monitor Worker Relationship Specialty Start Date End Date Lyla Cast, DELIVERY HELPER-JOURNEY LINEMAN PCP - General Nurse Practitioner 03/19/17 documented as of this encounter
--- OUTSIDE RECORDS SUMMARY | 2024-11-23 06:46 | XMS_ITS | Encounter Summary ---
Author Organization [employer] tem Address [facility] [id number] [address] [place] [address] Care Team Providers Care Body Worker Name Role Phone Lyla Cast FRONT OFFICE SPECIALIST-FLOAT NURSE Primary Care Provid er Reason for Visit * Reason Onset Date Comments Med Refill 12/20/2022 Encounter Details Date Type Department Care Team (Late st Contact Info) Description 12/20/2022 Refill [facility] [address] [place] [address] Malinda Milian CMA Social History Tobacco Use [...] Visit [facility] [address] [place] [address] [place] [address] Imer Luna MD [address] [place] [id number] documented as of this encounter Visit Diagnoses Not on filedocumented in this encounter Additional Health Concerns Assessment Noted Time PHQ-9 Depression Total Score: 0 10/19/19 9:28 AM EDT A Body Mass Index follow-up plan has been documented for the patient 10/25/2022 6:43 AM EDT documented as of this encounter Care Teams Body Worker Relationship Specialty Start Date End Date Lyla Cast, FRONT OFFICE SPECIALIST-FLOAT NURSE PCP - General Nurse Practitioner 03/19/17 documented as of this encounter
--- OUTSIDE RECORDS SUMMARY | 2024-11-23 06:46 | XMS_ITS | Encounter Summary ---
Author Organization [employer] tem Address [facility] [id number] [address] [place] [address] Care Team Providers Care Medical Management Trainer Name Role Phone Lyla Cast DIRECTOR OF HOUSING-CROCHETER HAND Primary Care Provid er Encounter Details Date Type Department Care Team (Late st Contact Info) Description 11/09/2022 Orders Only [facility] [address] [place] [address] Ref Prov, [place] [address] Social History Tobacco Use Types Packs/Day Years [...] Support Visit [facility] [address] [place] [address] [place] [address] Imer Luna MD [facility] [place] [address] documented as of this encounter Procedures Procedure Name Priority Date/Time Associated Diagnosis Comments MULTIPLE LABS Routine 11/08/2022 VITAMIN D 25 HYDROXY Routine 11/08/2022 documented in this encounter Results * Multiple labs (11/08/2022) us Not In System Ref Prov RI IMAGING Final Res ult Performing Organization Address [facility] Co de Phone Number MANUALLY TRANSCRIBED RESULTS * Vitamin D 25 hydroxy (11/08/2022) us Not In System Ref Prov LAB BLOOD ORDERABLES Armida l Result Performing Organization Address [facility]/ZIP Co de Phone Number MANUALLY TRANSCRIBED RESULTS documented in this encounter Visit Diagnoses Not on filedocumented in this encounter Additional Health Concerns Assessment Noted Time PHQ-9 Depression Total Score: 0 10/19/19 23 9:28 AM EDT A Body Mass Index follow-up plan has been documented for the patient 10/25/2022 6:43 AM EDT documented as of this encounter Care Teams Medical Management Trainer Relationship Specialty Start Date End Date Lyla Cast, DIRECTOR OF HOUSING-CROCHETER HAND PCP - General Nurse Practitioner 03/19/17 documented as of this encounter
--- OUTSIDE RECORDS SUMMARY | 2024-11-23 06:46 | XMS_ITS | Encounter Summary ---
Author Organization [facility] tem Address [facility] [place] [id number] [address] [place] [address] Care Team Providers Care Wire Wheeler Name Role Phone Lyla Cast SUPPORT TEAM ASSOC-FLAME CUTTER Primary Care Provid er Encounter Details Date Type Department Care Team (Late st Contact Info) Description 06/29/2019 Refill [facility] [address] [facility] [place] [address] Erika Dela Cruz MA Impulse control disorder (Primary Dx); Anxiety due to invasive procedure; Intellectual disability Social History Tobacco Use Types Packs/Day Years [...] encounter Miscellaneous Notes * Telephone Encounter - Erika Dela Cruz MA - 06/29/2019 4:26 PM EST [place] called and said he has pressure ulcer on left inner thigh that goes in the anal area. They made appt for him this wed 07/01 @ 1020 a at [place] with [facility]. They need new rx for Xanax 2 mg So he can take before his appt Erika Dela Cruz MA 06/29/19 1628 documented in this encounter Plan of Treatment Upcoming Encounters Date Type Department Care Team (Late st Contact Info) Description 12/28/2024 10:00 AM EDT Support Visit [facility] [address] [place] [address] [place] [address] Imer Luna MD [facility] [place] [address] documented as of this encounter Visit Diagnoses Diagnosis Impulse control disorder- Primary Impulse control disorder, unspecified Anxiety due to invasive procedure Intellectual disability Unspecified mental retardation documented in this encounter Additional Health Concerns Assessment Noted Time PHQ-9 Depression Total Score: 0 05/11/20 19 12:08 PM EST A Body Mass Index follow-up plan has been documented for the patient 07/18/2019 6:35 PM EST documented as of this encounter Care Teams Wire Wheeler Relationship Specialty Start Date End Date Lyla Cast APRN-FLAME CUTTER PCP - General Nurse Practitioner 03/19/17 documented as of this encounter
--- OUTSIDE RECORDS SUMMARY | 2024-11-23 06:46 | XMS_ITS | Patient Health Record ---
Author Organization [facility] Address [address] [place] [address] Care Team Providers Care Business Management Associate Name Role Phone Anders Sandoval Unavailable [phone] Luz Marina Thompson Unavailable Allergies No Known Allergies Results Component Value Reference Range Notes [facility]- HAND 3 VIEW RIGHT [id number] Reviewed date:08/20/2024 03:17:56 PM Interpretation: Performing Lab: Notes/Report: [facility]- HAND 3 VIEW RIGHT [id number] Reviewed date:09/28/2024 01:45:24 PM Interpretation: Performing Lab: Notes/Report: Reason For Referral No Information Medications Medication SIG (Take, Route, Fr equency, Duration) Notes Start Date End Date Status Myrbetriq Active risperiDONE Active citalopram Active oxyBUTYnin Active amLODIPine Active simvastatin Active dilTIAZem Active Senna Active Dermacinrx Ventrixyl Active Zinc with Vitamin C Active FeroSul Active Sodium Chloride Acti ve divalproex sodium Ac tive lisinopril Active lactulose Active Metamucil Active meloxicam Active Acidophilus Active Social History AUDIT-C (Standard) Question Answer Notes Did you have a drink containing alcohol in the p ast year? No Points 0 Interpretation Negative Problems Problem Type SNOMED Code ICD Code Onset Dates Problem Status W/U Status Risk Notes Problem [id number] Nondisplaced fracture of middle phalanx of right ring finger, subsequent encounter for fracture with routine healing (S62.654D) Active confirmed Vital Signs Height 5'2 in 10/26/2024 Weight 160 lbs 10/26/2024 BMI 29.26 10/26/2024 Encounters Encounter Location Date Provider Diagnosis [facility] [address] [place] [address] [place] [address] 10/26/2024 Anders Sandoval Nondisplaced fracture of middle phalanx of right ring finger, subsequent encounter for fracture with routine healing S62.654D [facility] [address] [place] [address] 08/17/2024 Anders Sandoval Hand pain, right M79.641 and Closed nondisplaced fracture of middle phalanx of right ring finger, initial encounter S62.654A [facility] [address] [facility] [place] [address] 09/14/2024 Luz [place] [facility] Nondisplaced fracture of middle phalanx of right ring finger, subsequent encounter for fracture with routine healing S62.654D Assessments Encounter Date Diagnosis (ICD Code) Assessment Notes Treatment Notes Treatment Clinical Notes Section Notes 08/17/2024 Hand pain, right (ICD-10 - M79.641) 08/17/2024 Closed nondisplaced fracture of middle phalanx of right ring finger, initial encounter (ICD-10 - S62.654A) 09/14/2024 Nondisplaced fracture of middle phalanx of right ring finger, subsequent encounter for fracture with routine healing (ICD-10 - S62.654D) 10/26/2024 Nondisplaced fracture of middle phalanx of right ring finger, subsequent encounter for fracture with routine healing (ICD-10 - S62.654D) 10/26/2024 Other Patient is doing well. He will continue with activities as tolerated and follow-up here on an as-needed basis. Import medication 08/17/2024 Other For his right ring finger middle phalanx fracture we will continue to treat this symptomatically. They will continue with the wheelchair. Bracing and lamberto taping have not worked due to his inability to keep these on. He will follow-up in 4 weeks to repeat x-rays and reassess his progress. Import medication 09/14/2024 Other Patient is now about 6 weeks out from the time his caregivers have noticed his bruising on this hand and is doing well. He can gradually start to use his crutches more as tolerated. We will see him back in 6 weeks for reevaluation and to repeat x-rays. Plan Of Treatment Pending Test Test Name Order Date HAND 3 VIEW RIGHT [id number] 10/26/2024 Insurance Providers Payer Name Payer Address Payer Phone Subscriber Number Group Number Insured Name Patient Relationship to Insured Coverage Start Date Coverage End Date [place] [place] [address] [id number] URI VALLES Self - patient is the insured [facility] of Medicaid [address] [place] [address] [id number] URI VALLES Self - patient is the insured Medical (General) History Medical History History ICD Code Kidney trouble
--- OUTSIDE RECORDS SUMMARY | 2024-11-23 06:46 | XMS_ITS | Clinical Summary ---
Author Organization [facility] Address [address] [place] [address] Care Team Providers Care Stain Wiper Name Role Phone Jeronimo Lara Primary Care Provider Medications lactobacillus acidophilus (ACIDOPHILUS) ORAL Cap Take 2 capsules by mouth three times daily. Active amoxicillin 500 mg ORAL capsule Take 500 mg by mouth once daily. 10/11/19 11 Active bisacodyl (DULCOLAX) 10 mg RECTAL Supp 10 mg by RECTAL route once daily as needed. Active sodium phosphate-sodium bisphosphate RECTAL enema 1 Enema by RECTAL route one time only. one enema if no BM in 48 hrs Active diltiazem LA (CARDIZEM LA) 240 mg ORAL 24 hr tablet Take 240 mg by mouth once daily. Active ferrous sulfate 324 mg (65 mg Iron) ORAL TbEC Take 324 mg by mouth once daily. Active CALCIUM POLYCARBOPHIL (KONSYL FIBER ORAL) Take by mouth. 1 tsp in 8 oz po bid Active lisinopril (PRINIVIL) 20 mg ORAL tablet Take 20 mg by mouth once daily. Active multivitamin ORAL tablet Take 1 tablet by mouth once daily. Active oxybutynin XL 15 mg ORAL 24 hr tablet Take 15 mg by mouth once daily. Active SENNOSIDES/DOCUSA TE SODIUM (SENNA PLUS ORAL) Take by mouth. 3 tabs po at hs Active Acetaminophen 650 mg ORAL Tab Take by mouth. every 4 hours prn Active Ranitidine HCl 150 mg ORAL Pack Take by mouth. qd prn for heartburn, indigestion Active peg 3350-Electrolytes 236-22.74-6.74 gram ORAL suspension Take by mouth once daily. once . 1 Container 0 10/11/19 11 Active lactulose (ENULOSE) 10 gram/15 mL ORAL solution Take 15 mL by mouth. 20 Gm / 30 ml daily 480 mL 0 10/18/19 11 Active COMPOUNDED PRESCRIPTION once daily. Enemeez enema per rectum daily 30 Enema 0 12/02/19 11 Active docusate (ENEMEEZ) 283 mg RECTAL enema 1 Enema by RECTAL route once daily. 60 Each 0 01/11/20 11 Active Family History Medical History Relation Comments GI Mother colon polyps Relation Status Comments Mother Social History Tobacco Use Types Packs/Day Years Used Date Smoking Tobacco: Never Alcohol Use Standard Drinks/Week Comments No 0 (1 standard drink = 0.6 oz pur e alcohol) Sex and Gender Information Value Date Recorded Sex Assigned at Not on file Legal Sex Male 8:36 AM EST Gender Identity Not on file Sexual Orientation Not on file Last Filed Vital Signs Vital Sign Reading Time Taken Comments Blood Pressure 135/74 10/10/2010 1:41 PM EDT Pulse 84 10/10/2010 1:41 PM EDT Temperature - - Respiratory Rate - - Oxygen Saturation 97% 10/10/2010 1:41 PM EDT Inhaled Oxygen Concentration - - Weight - - Height - - Body Mass Index - - Plan of Treatment Health Maintenance Due Date Last Done Comments Anxiety Screening 1980 Depression Screening 1980 HIV Screening 1980 Hepatitis C Screening 1980 DTaP,Tdap,Td Vaccine (1 - Tdap) [address] Colonography 2007 Cologuard (FIT-DNA) 2007 Colonoscopy 2007 Colorectal Cancer Screening 2007 Diabetes Screening 2007 Fecal Occult Blood 2007 Prostate Cancer Screening Discussion 2007 Sigmoidoscopy 2007 Pneumococcal Vaccine: 50+ (1 of 1 - PCV) 2012 Shingrix Vaccine (1 of 2) 2012 Covid-19 Vaccine (1 - 2023- season) 2024 Influenza Vaccine (#1) 2025 RSV Vaccine (1 - 1-dose 75+ series) 2037 Insurance MEDICARE Care Teams Stain Wiper Relationship Specialty Start Date End Date Jeronimo Lara [address] [place] [phone] PCP - General Family Medicine 08/31/10
--- OUTSIDE RECORDS SUMMARY | 2024-11-23 06:46 | XMS_ITS | Encounter Summary ---
Author Organization [employer] Address [facility]-[id number] [address] [place] [address] Care Team Providers Care Arboreal Scientist Name Role Phone Lyla Cast APRN-DIRECTOR HOUSEKEEPING Primary Care Provid er Reason for Visit * Reason Comments Med Refill Encounter Details Date Type Department Care Team (Late st Contact Info) Description 08/13/2024 Refill [facility] - [facility] Medicine [address] [place] [phone] Lyla Cast, JEWEL SUPERVISOR-DIRECTOR HOUSEKEEPING [address] PM 11/16/24 [place] [phone] Social History Tobacco Use Types Packs/Day Years [...] Support Visit [facility] [address] [place] [address] [place] [address] Imer Luna MD [facility] [place] [address] documented as of this encounter Visit Diagnoses Not on filedocumented in this encounter Additional Health Concerns Assessment Noted Time PHQ-9 Depression Total Score: 0 10/25/19 24 7:00 AM EDT A Body Mass Index follow-up plan has been documented for the patient 10/25/2022 6:43 AM EDT documented as of this encounter Care Teams Arboreal Scientist Relationship Specialty Start Date End Date Lyla Cast, JEWEL SUPERVISOR-DIRECTOR HOUSEKEEPING PCP - General Nurse Practitioner 03/19/17 documented as of this encounter
--- OUTSIDE RECORDS SUMMARY | 2024-11-23 06:46 | XMS_ITS | Encounter Summary ---
Author Organization [employer] tem Address [id number] [address] [place] [address] Care Team Providers Care Social Services Technician Name Role Phone Lyla Cast MILKING WORKER-SHRINKER Primary Care Provid er Encounter Details Date Type Department Care Team (Late Contact Info) Description 07/08/2019 Telephone [facility] [address] [place] [address] Marla Mix, MARCUS Social History [...] Description 12/28/2024 10:00 AM EDT Support Visit [facility] [address] [place] [address] [place] [address] Imer Luna MD [address] [place] [address] documented as of this encounter Visit Diagnoses Not on filedocumented in this encounter Additional Health Concerns Assessment Noted Time PHQ-9 Depression Total Score: 0 05/11/20 19 12:08 PM EST A Body Mass Index follow-up plan has been documented for the patient 07/18/2019 6:35 PM EST documented as of this encounter Care Teams Social Services Technician Relationship Specialty Start Date End Date Lyla Cast, DONNY-SHRINKER PCP - General Nurse Practitioner 03/19/17 documented as of this encounter
--- OUTSIDE RECORDS SUMMARY | 2024-11-23 06:47 | XMS_ITS | Encounter Summary ---
Author Organization [facility] Address [address] [place] [address] Care Team Providers Care Biostatistics Manager Name Role Phone Ricky Quintana MD Primary Care Provider + [phone] Lyla Cast Unavailable [phone] Paul Shipman MD Primary Care Provider + [phone] Encounter Details Date Type Department Care Team (Late st Contact Info) Description 07/19/2023 [facility] [address] [place] [phone] Anders Wagner DPM [address] [place], [place] [phone] Social History Tobacco Use Types Packs/Day Years [...] EDT Procedure Visit [facility] [address] [place] [address] Anders Wagner DPM [address] [place], [place] [phone] 12/09/2024 10:45 AM EDT [facility] [address] [place] [phone] Anders Wagner DPM [address] [place] [address] documented as of this encounter Visit Diagnoses Not on filedocumented in this encounter Care Teams Biostatistics Manager Relationship Specialty Start Date End Date Ricky Quintana MD [address] [place] [place] [address] PCP - General Family Medicine 10/30/22 09/30/24 Paul Shipman MD [address] [place] [address] PCP - General Family Medicine 10/01/24 Lyla Cast CRNP [address] [place] [address] Referring Physician Nurse Practitioner 10/30/22 documented as of this encounter
--- OUTSIDE RECORDS SUMMARY | 2024-11-23 06:47 | XMS_ITS | Clinical Summary ---
Author Organization [facility] Address [address] [place] [address] Care Team Providers Care Enrollment Representative Name Role Phone Unavailable Primary Care Provider Unavailabl e Allergies No known active allergies Medications amoxicillin (AMOXIL) 500 MG capsule Take 500 mg by mouth 3 times daily. Active Polyethylene Glycol 3350 (MIRALAX PO) Take by mouth. Active Lactobacillus (ACIDOPHILUS) 10 MG CAPS Take 1 tablet by mouth 3 times daily. Active diltiazem (CARDIZEM CD) 240 MG ER capsule Take 240 mg by mouth daily. Active ferrous sulfate 325 (65 FE) MG tablet Take 325 mg by mouth daily (with breakfast). Active Psyllium 28 % POWD Take by mouth. Active lisinopril (PRINIVIL;ZESTRI L) 20 MG tablet Take 20 mg by mouth daily. Active Multiple Vitamin (MULTIVITAMIN PO) Take by mouth. Active oxybutynin (DITROPAN XL) 15 MG CR tablet Take 15 mg by mouth daily. Active senna-docusate (SENNA PLUS) 8.6-50 MG per tablet Take 2 tablets by mouth nightly. Active LACTULOSE Take by mouth. Active Ranitidine HCl 150 MG PACK Take by mouth. Active Sodium Phosphates (FLEET ENEMA RE) Place rectally as needed. Active acetaminophen (TYLENOL) [address] 650 mg rectally every 4 hours as needed. Active Family History Relation Name Status Comments Father Alive Mother Alive Social History Tobacco Use Types Packs/Day [...] Sign Reading Time Taken Comments Blood Pressure 110/82 12/10/2011 1:59 PM EDT Pulse - - Temperature 36.9 C (98.5 F) 12/10/2011 1:59 PM EDT Respiratory Rate - - Oxygen Saturation - - Inhaled Oxygen Concentration - - Weight 70.9 kg (156 lb 4.8 oz) 12/10/2011 1:59 P M EDT Height - - Body Mass Index - - Plan of Treatment Not on file
--- OUTSIDE RECORDS SUMMARY | 2024-11-23 06:47 | XMS_ITS | Encounter Summary ---
Author Organization [facility] Address [address] [place] [address] Care Team Providers Care Call Taker Name Role Phone Lyla Cast MAGAN Unavailable [phone] Paul Shipman MD Primary Care Provider + [phone] Encounter Details Date Type Department Care Team (Latest Contact Info) Description 11/17/2024 Travel Social History Tobacco Use Types Packs/Day [...] AM EDT [facility] [address] [facility] [place] [address] Anders Wagner DPM [address] [place], [place] [phone] 12/09/2024 10:45 AM EDT Office Visit [facility] [address] [place] [address] Anders Wagner DPM [address] [place], [place] [phone] documented as of this encounter Visit Diagnoses Not on filedocumented in this encounter Care Teams Call Taker Relationship Specialty Start Date End Date Paul Shipman MD [address] [facility] [place], [place] [phone] PCP - General Family Medicine 10/01/24 Lyla Cast CRNP [address] [facility] [place] [address] Referring Physician Nurse Practitioner 10/30/22 documented as of this encounter
--- OUTSIDE RECORDS SUMMARY | 2024-11-23 06:47 | XMS_ITS | Encounter Summary ---
Author Organization [facility] Address [address] [place] [address] Care Team Providers Care Aircraft Maintenance Manager Name Role Phone Ricky Quintana MD Primary Care Provider + [phone] Lyla Cast Unavailable [phone] Paul Shipman MD Primary Care Provider + [phone] Encounter Details Date Type Department Care Team (Late st Contact Info) Description 05/15/2023 Abstract [facility] [address] [place] [phone] Anders Wagner DPM [address] [place], [place] [phone] Social History Tobacco Use Types Packs/Day Years [...] Description 11/30/2024 8:45 AM EDT [facility] [address] [place] [address] Anders Wagner DPM [address] [place], [place] [phone] 12/09/2024 10:45 AM EDT [facility] [address] [place] [phone] Anders Wagner DPM [address] [place] [address] documented as of this encounter Visit Diagnoses Not on filedocumented in this encounter Care Teams Aircraft Maintenance Manager Relationship Specialty Start Date End Date Ricky Quintana MD [address] [place] [address] PCP - General Family Medicine 10/30/22 09/30/24 Paul Shipman MD [address] [place] [address] PCP - General Family Medicine 10/01/24 Lyla Cast CRNP [address] [place] [address] Referring Physician Nurse Practitioner 10/30/22 documented as of this encounter
[2024-11-23 07:40] LABS: Alanine Aminotransferase 32 U/L (16-63); Albumin Globulin Ratio 0.8; Albumin Level 3.1 g/dL (3.4-5.0); Alkaline Phosphatase 75 U/L (46-116); Anion Gap 12.5; Aspartate Amino Transferase 19 U/L (15-37); Blood Urea Nitrogen 24.0 mg/dL (7.0-18.0); Calcium 9.3 mg/dL (8.5-10.1); Carbon Dioxide 27.9 mmol/L (21.0-32.0); Chloride 108 mmol/L (98-107); Cholesterol 121 mg/dL (<=200); Estimated GFR (African America >60 (>=60 mL/min/1.73m^2); Estimated GFR (Non-African Ame 59 (>=60 mL/min/1.73m^2); Globulin 3.7 g/dL; Glucose 87 mg/dL (74-106); HDL Cholesterol 60 mg/dL (40-60); Hematocrit 39.0 % (42.0-54.0); Hemoglobin 13.0 g/dL (14.0-18.0); Immature Granulocytes Abs Auto 0.05 10^3/uL (0.00-0.03); Immature Granulocytes Pct Auto 0.9 % (0.0-0.5); Lymphocytes Absolute Auto 1.5 10^3/uL (1.2-3.8); Mean Corpuscular HGB Conc 33.3 g/dL (29.9-35.2); Mean Corpuscular Hemoglobin 31.3 pg (25.9-34.0); Mean Corpuscular Volume 94.0 fL (80.0-94.0); Platelet Count 141 10^3/uL (150-450); Potassium 4.4 mmol/L (3.5-5.1); Red Blood Count 4.15 10^6/uL (4.70-6.10); Sodium 144 mmol/L (136-145); Total Protein 6.8 g/dL (6.4-8.2); Triglycerides 81 mg/dL (<=150); VLDL CHOLESTEROL 16.2 mg/dL; White Blood Count 5.9 10^3/uL (4.0-11.0)
== END 2024-11-23 06:42 | disposition home or self-care (01) ==
LOC: LAB 06:44
PROVIDERS: PCP Nurse Practitioner
DX: E78.2 Mixed hyperlipidemia (principal); D50.8 Other iron deficiency anemias; I10 Essential (primary) hypertension; E55.9 Vitamin D deficiency, unspecified
CPT/HCPCS: 36415; 80053; 80061; 85025

== ENCOUNTER 2025-03-30 06:40 | Outpatient (OUT) | payer MEDICARE, MEDICAID, SELFPAY ==
--- OUTSIDE RECORDS SUMMARY | 2025-03-10 10:00 | XMS_ITS | Encounter Summary ---
Author Organization [employer] Address [facility]-[id number] [address] [place] [address] Care Team Providers Care Telesales Professional Name Role Phone Jey Molina BUCKLE GLUER-RIVETER HELPER Primary Care Provider + Reason for Referral * Misc (Routine) - AuthorizedSpecialtyDiagnoses / ProceduresReferred By Contact Referred To Contact Diagnoses Suprapubic catheter ([facility]) Procedures ASPIRATION BLADDER INSERT SUPRAPUBIC CATHETER Mandi Fuentes PA [address] [place] [address] Phone: tel: fax: Referral IDStatusReasonStart DateExpiration DateVisits RequestedVisits [id number]/22/202510/22/202611 Reason for Visit * ReasonCommentsBladder Problem Encounter Details DateTypeDepartmentCare Team (Latest Contact Info)Mvhchgohcup05/22/2025 11:00 AM EDTSupport Visit [facility] [address] [place] [address] [address] [facility] [address] Mandi Fuentes PA [address] [place] [address] Suprapubic catheter ([facility]) (Primary Dx) Social History Tobacco UseTypesPacks/DayYears UsedDateSmoking Tobacco: NeverSmokeless Tobacco: NeverAlcohol UseStandard Drinks/WeekCommentsNo0 (1 standard drink = 0.6 oz pure alcohol)[facility] UtilitiesAnswerDate RecordedIn the past 12 months has the electric, gas, oil, or water company threatened to shut off services in your home?No 01/25/2025Social Connection and Isolation PanelAnswerDate RecordedIn a typical week, how many times do you talk on the phone with family, friends, or neighbors?More than three times a week01/25/2025How often do you get together with friends or relatives?More than three times a week01/25/2025How often do you attend yazidi or bahai services?1 to 4 times per year01/25/2025Do you belong to any clubs or organizations such as yazidi groups, unions, fraternal or athletic groups, or school groups?Yes01/25/2025How often do you attend meetings of the clubs or organizations you belong to?More than 4 times per year01/25/2025 Are you , , , , never , or living with a partner?Never ibqysom3501/25/2025Overall Financial Resource Strain (CARDIA)Answer Date RecordedHow hard is it for you to pay for the very basics like food, housing, medical care, and heating?Not hard at all01/25/2025PHQ-2AnswerDate RecordedTotal Lsdne624Finbeaver valley hospital [place] [facility] - Occupational Stress QuestionnaireAnswerDate RecordedDo you feel stress - tense, restless, nervous, or anxious, or unable to sleep at night because yourmind is troubled all the time - these days?Not at all01/25/2025Exercise Vital SignAnswer Date RecordedOn average, how many days per week do you engage in moderate to strenuous exercise (like a brisk walk)?0 days01/25/2025On average, how many minutes do you engage in exercise at this level?0 min01/25/2025PRAPARE - TransportationAnswerDate RecordedIn the past 12 months, has lack of transportation kept you from medical appointments or from getting medications?No 01/25/2025In the past 12 months, has lack of transportation kept you from meetings, work, or from getting things needed for daily living?No01/25/2025 Housing InstabilityAnswerDate RecordedAre you worried or concerned that in the next two months you may not have stable housing that you own, rent or stay in as a part of a household?No01/25/2025hildcareAnswerDate RecordedDo problems getting childbirth educator make it difficult for you to work or study?No01/25/2025 EmploymentAnswerDate RecordedDo you need help finding a local career center and/or a training program?No01/25/2025Hunger ScreeningAnswerDate RecordedWithin the past 12 months we worried whether our food would run out before we got money to buy more.Never True01/25/2025Within the past 12 months the food we bought just didn't last and we didn't have money to get more.Never True01/25/2025 Purpose - LifeAnswerDate RecordedI have a purpose and direction in my life.Agree 01/25/2025Sex and Gender InformationValueDate RecordedSex Assigned at BirthNot on fileLegal [id number]/23/2014 11:23 AM EDTGender IdentityNot on fileSexual OrientationNot on filedocumented as of this encounter Progress Notes * Hope Gonzalez LPN - 03/10/2025 11:00 AM EDT Patient presents for Suprapubic catheter change via caregiver with # 24 fr Sp catheter attached to a leg bag. Patient prepped and draped and Sp Site cleansed with betadine swabs, extra lubrication was added the Pt.'s Stoma site to ensure the ability to remove and replace the tube. 9 mL NS removed from the balloon port, # 24 fr Sp hull safely removed and replaced with #24 fr Sp hull catheter, 10cc's to placement balloon. S/P hull catheter then attached to leg bag per Pt. preference. Pt. To return in 3.5 weeks for next catheter change. Facility paperwork filled out. Hope Gonzalez LPN Ordering Doctor: MD Dania Supervising doctor: Mandi Fuentes PA-C documented in this encounter Plan of Treatment DateTypeDepartmentCare Team (Latest Contact Info)Lbbrqepkfcs36/12/2025 9:00 AM ESTSupport Visit [facility] [address] [place] [address] [place] [address] Mandi Fuentes PA [address] [place] [address] 06/03/2025 3:00 PM ESTOffice Visit [facility] [address] [place] [phone] Jey Molina, BUCKLE GLUER-RIVETER HELPER [address] [place], [address] [address] NameTypePriorityAssociated DiagnosesOrder ScheduleASPIRATION BLADDER INSERT SUPRAPUBIC CATHETERProceduresRoutine Suprapubic catheter (CMS-HCC) Expected: 03/10/2025, Expires: 03/10/2026documented as of this encounter Visit Diagnoses Diagnosis Suprapubic catheter (CMS-HCC)- Primary Other cystostomy status documented in this encounter Additional Health Concerns AssessmentNoted TimePHQ-9 Depression Total Score: 10:38 AM EDTA Body Mass Index follow-up plan has been documented for the [id number]/25/2022 6:43 AM EDTdocumented as of this encounter Care Teams Team MemberRelationshipSpecialtyStart DateEnd Date Jey Molina, BUCKLE GLUER-RIVETER HELPER [address] [place] [address] PCP - GeneralInternal Kjbtgwvg18/16/25documented as of this encounter
--- OUTSIDE RECORDS SUMMARY | 2025-03-17 09:45 | XMS_ITS | Encounter Summary ---
Author Organization [facility] Address [address] [place] [address] Care Team Providers Care Vegetable Cook Name Role Phone Lyla Cast MAGAN Unavailable [phone] Paul Shipman MD Primary Care Provider + [phone] Reason for Visit * ReasonCommentsWound CheckEstablished patient presents today for 2 week wound check of the right foot. Encounter Details DateTypeDepartmentCare Team (Latest Contact Info)Modhwwghzii40/29/2025 10:45 AM EDTOffice Visit [facility] [address] [place] [address] Anders Wagner, DPViktoria [address] [place], [place] [id number] Stage II pressure ulcer of right heel (CMS-HCC) (Primary Dx); Hereditary sensory-motor neuropathy, type I; Flaccid paraplegia, incomplete, at lumbar level (HCC); Lumbar spina bifida without hydrocephalus (HCC) Social History Tobacco UseTypesPacks/DayYears UsedDateSmoking Tobacco: NeverSmokeless Tobacco: Never Tobacco Cessation:Counseling Given: Not Answered Alcohol UseStandard Drinks/WeekCommentsNever0 (1 standard drink = 0.6 oz pure alcohol)Sex and Gender InformationValueDate RecordedSex Assigned at BirthNot on fileLegal OcmWuto1208/01/2022 7:32 PM EDTGender IdentityNot on fileSexual OrientationNot on filedocumented as of this encounter Last Filed Vital Signs Vital SignReadingTime TakenCommentsBlood Pressure--Pulse--Temperature-- Respiratory Rate--Oxygen Saturation--Inhaled Oxygen Concentration--Ocaydd13 kg (150 lb)03/17/2025 10:38 AM ECJKqrwvv576.4 cm (5')03/17/2025 10:38 AM EDTBody Mass Index29.291 10:38 AM EDTdocumented in this encounter Patient Instructions * Patient Instructions* Anders Wagner DPM - 03/17/2025 10:45 AM EDT Wound care measures as noted documented in this encounter Progress Notes * Anders Wagner DPM - 03/17/2025 10:45 AM EDT Images from the original note were not included. Subjective Patient ID: Igor Pereira is a 65 y.o. male who presents for Wound Check (Established patient presents today for 2 week wound check of the right foot. ). HPI Follow-up assessment and wound care: Chronic, recalcitrant neuropathic wound; located dorsal lateral surface of the right midfoot. Accompanied by his caregiver, Evelyn. Status post SDRM application (11/18/2024). Previous dressings remained in place accordingly. There are no new specific concerns or complaints. Wound Check Medications Current Outpatient Medications: acetaminophen [...] Disp: , Rfl: Water For Irrigation, Sterile (Macon Sterile Water) solution, Irrigate with as directed, [...] NAIL PATHOLOGY: dystrophic , discolored. INTERDIGITAL MACERATION: Clean, dry, non-inflamed. ULCER: Right foot: dorsolateral midfoot: Salinas stage II neuropathic wound; location dorsal-lateralmidfoot. Wound bed remains well hydrated, clean and near- completely granular; minimal serous drainage, without undermining, tunneling or probing. The wound margins are well adhered, raised, fibrotic and keratotic; without maceration. There are no clinical signs of infection. Unremarkable for malodor or ischemic changes. Soft tissue envelope well perfused. Chronic, stable fluctuant swelling of theright midfoot. Post-debridement measurements: 03/16/2025: 1.4 x 1.0 x 0.2 cm Post-debridement measurements: 02/23/2025: 1.5 x 1.0 x 0.3 cm Post-debridement measurements: 02/08/2025: 1.4 x 0.8 x 0.2 cm. Post-debridement measurements: 01/14/2025: 1.2 x 0.6 x 0.2 cm Post-debridement measurements: 12/24/2024: 1.2 x 0.6 x 0.2 cm Post-debridement measurements: 12/09/2024: 1.2 x 0.5 x 0.2 cm Post-debridement measurements: 11/18/2024: 1.4 x 0.7 x [...] 05/27/2024: 1.3 x 0.9 x 0.1 cm Right foot: Medial wound: Salinas stage II full-thickness ulceration stemming from an apparent blister formation. The wound bed is well hydrated, clean and granular, without probing or tracking. Minimal serous drainage, without malodor. The margins are well adhered; with macerated epidermal slough. Soft tissue envelope well-perfused. There are no clinical signs of cellulitis, soft tissue infectionor ischemic necrosis. Post-debridement measurements: 03/16/2025: 1.1 x 0.6 x 0.2 cm Post-debridement measurements: 02/23/2025: 1.6 x 0.7 x 0.1 cm Wound measurements: 02/08/2025: 2.4 x 1.0 x 0.1 cm Orthopedic: DEFORMITIES: severe gastrocsoleus equinus bilateral. multiple digital deformities. Flaccid PVP footstructure. 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 Radiology: Assessment/Plan 1. Salinas stage II neuropathic wounds right midfoot; chronic, stable wound. 2. 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 LE neuropathy/LOPS 4. Acquired bilateral foot and LE deformities 5. Acquired hyperkeratotic lesions navicular tuberosity bilateral. 6. Status post Epifix x 10; (#10 applied 03/14/2022) 7. Status post SDRM (#22 applied 11/18/2024). 8. Full-thickness ulceration developed from blister formation medial aspect of the right foot. Plan: Clinical Notes: review of clinical findings, high risk nature of the condition and treatment rationale. 1. Sharp debridement and wound preparation followed by Jennifer collagen matrix dressing both wounds. 2. Dressing intact, clean and dry x 7 days; with instructions to resume or default to Mefix dressings daily as indicated. 3. Offloading measures: Right AFO. Scheduled for adjustment and modification tomorrow; particularlyfor offloading of the medial wound. Wheelchair as necessary. IVR for Emerge amnion allograft. Follow up: 2 weeks, sooner if any problems arise Procedure: Right foot: Aseptic technique: #15 scalpel: Sharp, active, selective full- thickness excisional debridement; to the level of subcutaneous granular wound bed; excising devitalized, non-viable, dystrophic, fibrous and hyperkeratotic tissue; reducing direct and indirect pressure; reducing wound contamination and bioburden. Sharp curettage of wound bed stimulating granular bleeding. Saline cleansing. Pressure hemostasis. Jennifer collagen matrix dressing; followed by a dry sterile dressing; secured [...] or corrected. Thank you for your understanding. 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
--- OUTSIDE RECORDS SUMMARY | 2025-03-17 09:45 | XMS_ITS | Encounter Summary ---
Author Organization [facility] Address [address] [place] [address] Care Team Providers Care Gauge Maker Name Role Phone Lyla Cast MAGAN Unavailable [phone] Paul Shipman MD Primary Care Provider + [phone] Reason for Visit * ReasonCommentsWound CheckEstablished patient presents today for 2 week wound check of the right foot. Encounter Details DateTypeDepartmentCare Team (Latest Contact Info)Nabstdyotlj81/29/2025 10:45 AM EDTOffice Visit [facility] [address] [place] [address] Anders Wagner, DPViktoria [address] [place], [place] [phone] Stage II pressure ulcer of right heel (CMS-HCC) (Primary Dx); Hereditary sensory-motor neuropathy, type I; Flaccid paraplegia, incomplete, at lumbar level (HCC); Lumbar spina bifida without hydrocephalus (HCC) Social History Tobacco UseTypesPacks/DayYears UsedDateSmoking Tobacco: NeverSmokeless Tobacco: Never Tobacco Cessation:Counseling Given: Not Answered Alcohol UseStandard Drinks/WeekCommentsNever0 (1 standard drink = 0.6 oz pure alcohol)Sex and Gender InformationValueDate RecordedSex Assigned at BirthNot on fileLegal KjlUjjr6908/01/2022 7:32 PM EDTGender IdentityNot on fileSexual OrientationNot on filedocumented as of this encounter Last Filed Vital Signs Vital SignReadingTime TakenCommentsBlood Pressure--Pulse--Temperature-- Respiratory Rate--Oxygen Saturation--Inhaled Oxygen Concentration--Oyvqkj22 kg (150 lb)03/17/2025 10:38 AM VSNGswdyr569.4 cm (5')03/17/2025 10:38 AM EDTBody Mass Index29.291 [...] Disp: , Rfl: Water For Irrigation, Sterile (Sylvester Sterile Water) solution, Irrigate with as directed, [...] Plan of Treatment DateTypeDepartmentCare Team (Latest Contact Info)Dioydhxntll11/18/2025 10:45 AM ESTOffice Visit [facility] [address] [place] [phone] Anders Wagner DPM [address] [place], [place] [phone] documented as of this encounter Visit Diagnoses Diagnosis Stage II pressure ulcer of right heel (CMS-HCC)- Primary Hereditary sensory-motor neuropathy, 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
--- OUTSIDE RECORDS SUMMARY | 2025-03-22 08:59 | XMS_ITS | Encounter Summary ---
Author Organization [facility] Address [id number] [address] [place] [address] Care Team Providers Care Museum Curator Name Role Phone Jey Molina RAILROAD DINING CAR STEWARDESS-TRANSIT MIXER DRIVER Primary Care Provider + Encounter Details DateTypeDepartmentCare Team (Latest Contact Info)Mljqdyscjaz06/22/2025Refill [facility] [address] [place] [phone] Selma Blanc CMA Anxiety due to invasive procedure; Impulse control disorder; Intellectual disability Social History Tobacco UseTypesPacks/DayYears UsedDateSmoking Tobacco: NeverSmokeless Tobacco: NeverAlcohol UseStandard Drinks/WeekCommentsNo0 (1 standard drink = 0.6 oz pure alcohol)[facility] UtilitiesAnswerDate RecordedIn the past 12 months has the [employer], gas, oil, or water [employer] threatened to shut off services in your home?No 01/25/2025Social Connection and Isolation PanelAnswerDate RecordedIn a typical week, how many times do you talk on the phone with family, friends, or neighbors?More than three times a week01/25/2025How often do you get together with friends or relatives?More than three times a week01/25/2025How often do you attend jehovah's witness or restorationist services?1 to 4 times per year01/25/2025Do you belong to any clubs or organizations such as jehovah's witness groups, unions, fraternal or athletic groups, or school groups?Yes01/25/2025How often do you attend meetings of the clubs or organizations you belong to?More than 4 times per year01/25/2025 Are you , , , , never , or living with a partner?Never ynpfqyy0501/25/2025Overall Financial Resource Strain (CARDIA)Answer Date RecordedHow hard is it for you to pay for the very basics like food, housing, medical care, and heating?Not hard at all01/25/2025PHQ-2AnswerDate RecordedTotal Ohllh642Finbrigham city community hospital [place] of Occupational Health - Occupational Stress QuestionnaireAnswerDate [...] part of a household?No01/25/2025hildcareAnswerDate RecordedDo problems 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 work [...] InformationValueDate RecordedSex Assigned at BirthNot on fileLegal GplBfgl8812/23/2014 11:23 AM EDTGender IdentityNot on fileSexual OrientationNot on filedocumented as of this encounter Plan of Treatment DateTypeDepartmentCare Team (Latest Contact Info)Wjxtlbrchpk71/12/2025 9:00 AM ESTSupport Visit [facility] [address] [place] [address] [place] [address] Mandi Fuentes I, PA [address] [place] [address] 06/03/2025 3:00 PM ESTOffice Visit [facility] [address] [place] [phone] Jey Molina, RAILROAD DINING CAR STEWARDESS-TRANSIT MIXER DRIVER [address], [address] [address] documented as of this encounter Visit Diagnoses Diagnosis Anxiety due to invasive procedure Impulse control disorder Impulse control disorder, unspecified Intellectual disability Unspecified mental retardation documented in this encounter Additional Health Concerns AssessmentNoted TimePHQ-9 Depression Total Score: 10:38 AM EDTA Body Mass Index follow-up plan has been documented for the jgswwrl8310/25/2022 6:43 AM EDTdocumented as of this encounter Care Teams Team MemberRelationshipSpecialtyStart DateEnd Date Jey Molina, RAILROAD DINING CAR STEWARDESS-TRANSIT MIXER DRIVER [address] [place] [address] PCP - GeneralInternal Euayvwjg72/16/25documented as of this encounter
--- OUTSIDE RECORDS SUMMARY | 2025-03-22 08:59 | XMS_ITS | Clinical Summary ---
Author Organization [facility] Address [address], [address] [place] [address] Care Team Providers Care Apron Operator Name Role Phone Unavailable Primary Care Provider Unavailabl e Allergies No known active allergies Medications MedicationSigDispense QuantityRefillsLast FilledStart DateEnd DateStatus amoxicillin (AMOXIL) 500 MG capsule Take 500 mg by mouth 3 times daily.Active Polyethylene Glycol 3350 (MIRALAX PO) Take by mouth.Active Lactobacillus (ACIDOPHILUS) 10 MG CAPS Take 1 tablet by mouth 3 times daily.Active diltiazem (CARDIZEM CD) 240 MG ER capsule Take 240 mg by mouth daily.Active ferrous sulfate 325 (65 FE) MG tablet Take 325 mg by mouth daily (with breakfast).Active Psyllium 28 % POWD Take by mouth.Active lisinopril (PRINIVIL;ZESTRIL) 20 MG tablet Take 20 mg by mouth daily.Active Multiple Vitamin (MULTIVITAMIN PO) Take by mouth.Active oxybutynin (DITROPAN XL) 15 MG CR tablet Take 15 mg by mouth daily.Active senna-docusate (SENNA PLUS) 8.6-50 MG per tablet Take 2 tablets by mouth nightly.Active LACTULOSE Take by mouth.Active Ranitidine HCl 150 MG PACK Take by mouth.Active Sodium Phosphates (FLEET ENEMA RE) Place rectally as needed.Active acetaminophen (TYLENOL) [address] 650 mg rectally every 4 hours as needed.Active Family History RelationNameStatusCommentsFatherAliveMotherAlive Social History Tobacco UseTypesPacks/DayYears UsedDateSmoking Tobacco: NeverAlcohol UseStandard Drinks/WeekCommentsNo0 (1 standard drink = 0.6 oz pure alcohol)Sex and Gender InformationValueDate RecordedSex Assigned at BirthNot on fileLegal SexMale 06/29/2012 12:13 PM ESTGender IdentityNot on fileSexual OrientationNot on file Last Filed Vital Signs Vital SignReadingTime TakenCommentsBlood Bklaqumj753/8212/10/2011 1:59 PM EDT Pulse--Amhutmheubl26.9 ??C (98.5 ??F)12/10/2011 1:59 PM EDTRespiratory Rate-- Oxygen Saturation--Inhaled Oxygen Concentration--Xlqwfp22.9 kg (156 lb 4.8 oz) 12/10/2011 1:59 PM EDTHeight--Body Mass Index-- Plan of Treatment Not on file
--- OUTSIDE RECORDS SUMMARY | 2025-03-22 08:59 | XMS_ITS | Encounter Summary ---
Author Organization [facility] Address [address] [facility] [place] [address] Care Team Providers Care Family Practice Nurse Practitioner Name Role Phone Lyla Cast MAGAN Unavailable [phone] Paul Shipman MD Primary Care Provider + [phone] Encounter Details DateTypeDepartmentCare Team (Latest Contact Info)Dksftfnsfne68/29/2025amboo flowsheet [facility] [address] [place] [address] Anders Wagner DPM [address] [place], [place] [address] Social History Tobacco UseTypesPacks/DayYears UsedDateSmoking Tobacco: NeverSmokeless Tobacco: NeverAlcohol UseStandard Drinks/WeekCommentsNever0 (1 standard drink = 0.6 oz pure alcohol)Sex and Gender InformationValueDate RecordedSex Assigned at Not on fileLegal PptRopa1808/01/2022 7:32 PM EDTGender IdentityNot on fileSexual OrientationNot on filedocumented as of this encounter Plan of Treatment DateTypeDepartmentCare Team (Latest Contact Info)Pleumrhwkwj26/18/2025 10:45 AM ESTOffice Visit [facility] [address] [place] [address] Anders Wagner DPM [address] [place], [place] [address] documented as of this encounter Visit Diagnoses Not on filedocumented in this encounter Care Teams Team MemberRelationshipSpecialtyStart DateEnd Date Paul Shipman MD [address] [place] [address] PCP - GeneralFamily Medicine10/01/24 Lyla Cast CRNP [address] [facility] [place] [address] Referring PhysicianNurse Practitioner10/30/22documented as of this encounter
--- OUTSIDE RECORDS SUMMARY | 2025-03-22 08:59 | XMS_ITS | Clinical Summary ---
Author Organization [facility] Address [address] [facility] [place] [address] Care Team Providers Care Water Well Driller Name Role Phone Unavailable Primary Care Provider Unavailabl e Source Comments The following information is NOT included in Care Everywhere downloads:Psychiatric notes, ECG results, Cardiac Rehab notes, Pulmonary Function notes, data from [employer] (includes but not limited toPregnancy data,audiograms, eye exams, pre-surgical evaluation notes, well-child exam data).[facility] Allergies No known active allergies Medications MedicationSigDispense QuantityRefillsLast FilledStart DateEnd DateStatus Lactobacillus (ACIDOPHILUS) 100 MG CAPS Take 1 Tab by mouth 3 times daily.Active diltiazem (CARDIZEM CD) 240 MG ER capsule Take 240 mg by mouth daily.Active lisinopril (PRINIVIL, ZESTRIL) 30 MG tablet Take 30 mg by mouth daily.Active senna (SENOKOT) 8.6 MG TABS tablet Take 2 Tabs by mouth at bedtime.Active acetaminophen (TYLENOL) 325 mg tablet Take 2 Tablets by mouth every 6 hours as needed.Active ammonium lactate (LAC-HYDRIN) 12 % cream Apply 1 Applicator topically daily as needed. Apply one application to affected area.Active carbamide peroxide (DEBROX/MURINE) 6.5 % otic solution 3 Drops at bedtime as needed.Active citalopram (CeleXA) 40 MG tablet Take 40 mg by mouth daily.Active ferrous sulfate 325 (65 Fe) MG tablet Take 325 mg by mouth daily.Active guaifenesin (ROBITUSSIN) 100 MG/5ML syrup Take 200 mg by mouth 3 times daily as needed.Active hydrocortisone 2.5 % cream Apply 1 Applicator topically 2 times daily as needed. Insert one application into rectum for hemorrhoidsActive lactulose 10 g/15 mL oral solution Take 20 g by mouth 2 times daily.Active lorazepam (ATIVAN) 2 MG tablet Take 2 mg by mouth as needed. Take 2 mg one hour prior to appointments, procedures, blood draws or testingActive Miconazole Nitrate 2 % AERO Apply 1 Applicator externally daily.Active mirabegron ER (MYRBETRIQ) 50 MG TB24 tablet Take 50 mg by mouth daily.Active Multiple Vitamins-Iron (Multivitamin Plus Iron Adult) TABS Take 1 Tablet by mouth daily.Active jqaru-9-kpjd (LOVAZA) 1 GM capsule Take 1,000 mg by mouth daily.Active oxybutynin (DITROPAN XL) 15 MG XL tablet Take 15 mg by mouth daily.Active polyethylene glycol (GLYCOLAX) 17 GM/SCOOP powder Dissolve 17 g in 8 ounces of liquid and drink daily.Active risperiDONE (RISPERDAL) 0.5 MG tablet Take 0.5 mg by mouth 2 times daily.Active simvastatin (ZOCOR) 10 MG tablet Take 10 mg by mouth every evening.Active Zinc 50 MG TABS Take 1 Tablet by mouth daily.Active Active Problems ProblemNoted DateDiagnosed DglnEnqqme66/16/2022 Overview (08/02/2021): Added automatically from request for surgery [id number] Immunizations ImmunizationAdministration DatesNext DueDTaP (CVX=20)06/20/2011Influenza, injectable, quadrivalent, preservative free (NYE=352)03/26/2022,03/20/2021, 03/10/2020,03/03/2019,03/06/2018,03/06/2017,03/01/2017,03/05/2016Influenza, novel H1H6-42, injectable (YFQ=776)04/27/2009MMR, Ymwwikk-Iggrp-Cugjueh (CVX=03) 10/29/1983Moderna Monovalent (12+ yrs) COVID-19 vaccine, mRNA, spike protein, LNP, PF, 100 mcg/0.5 mL (AEL=252)07/17/2021,06/27/2020,1Pneumococcal polysaccharide 23 Valent (PPSV23) (CVX=33)04/17/2013,04/05/2006Td (adult), 2 Lf tetanus toxoid, preservative free, adsorbed (CVX=09)03/09/1985,03/10/1984, 10/29/1983Tdap (NNP=001)08/13/2022Zoster Recombinant (RZV,Shingles) (XUR=904) 04/21/2019,01/27/2019 Social History Tobacco UseTypesPacks/DayYears UsedDateSmoking Tobacco: Never AssessedSex and Gender InformationValueDate RecordedSex Assigned at FzysqIyxs67/14/2022 3:27 PM EDTLegal CsnLyvn7611/24/2013 2:26 PM EDTGender LbutagasTgnp34/14/2022 3:27 PM EDT Sexual OrientationChoose not to gareykux90/14/2022 3:27 PM EDT Last Filed Vital Signs Vital SignReadingTime TakenCommentsBlood Altnhrgb541/8409/29/2021 2:42 PM EDT Ihaqt260309/29/2021 2:42 PM RBSDmjngavicoi82.1 ??C (97 ??F)09/29/2021 2:20 PM EDT Respiratory Zjvb182809/29/2021 2:42 PM EDTOxygen Zemxonvsyw51%09/29/2021 2:42 PM EDTInhaled Oxygen Concentration--Qmeoxw04.6 kg (160 lb)09/29/2021 11:32 AM EDT Height--Body Mass Index-- Plan of Treatment Health MaintenanceDue DateLast DoneCommentsHIV Test1977Hepatitis C Dyfusbiq35/20/1980Hepatitis A (HAV) Vaccine (optional start 19+ years)1981 Cologuard (Stool DNA)2007FIT2007Pneumococcal Vaccine(s) (50+ yrs) (2 of 2 - PCV), 04/05/2006nnual Wellness Visit (G0439) 06/20/2018Hepatitis B (HBV) Vaccine (optional start 60+ years)2022 Szbdedznwhl92/01/2018COVID-19 Vaccine ( season)2025 07/17/2021, 06/27/2020, 05/30/2020Influenza Vaccine (#1)/11/2021, 03/20/2021, 03/10/2020, Additional history existsCRC Khodjuygm57/31/2027 Bxlgxdafygc55Tetanus (Td or Tdap) Hmaqlnq76/, 03/09/1985, 03/10/1984, Additional history existsRSV vaccine (adult) (1 - 1-dose 75+ series)2037Shingles (RZV) AoetaobRgwtelcds94/03/2019, 01/27/2019Tdap VsdbzsvHqrqaloha10/27/2023 Insurance
--- OUTSIDE RECORDS SUMMARY | 2025-03-22 08:59 | XMS_ITS | Encounter Summary ---
Author Organization [facility] Address [address] [place] [address] Care Team Providers Care Bank Operations Officer Name Role Phone Lyla Cast MAGAN Unavailable [phone] Paul Shipman MD Primary Care Provider + [phone] Encounter Details DateTypeDepartmentCare Team (Latest Contact Info)Uhszzbscxzt81/29/2025bstract [facility] [address] [place] [address] Anders Wagner DPM [address] [place], [place] [phone] Social History Tobacco UseTypesPacks/DayYears UsedDateSmoking Tobacco: NeverSmokeless Tobacco: NeverAlcohol UseStandard Drinks/WeekCommentsNever0 (1 standard drink = 0.6 oz pure alcohol)Sex and Gender InformationValueDate RecordedSex Assigned at Not on fileLegal YpuXdkg1608/01/2022 7:32 PM EDTGender IdentityNot on fileSexual OrientationNot on filedocumented as of this encounter Plan of Treatment DateTypeDepartmentCare Team (Latest Contact Info)Czzcxuqmfwq37/18/2025 10:45 AM ESTOffice Visit [facility] [address] [place] [address] Anders Wagner DPM [address] [place], [place] [phone] documented as of this encounter Visit Diagnoses Not on filedocumented in this encounter Care Teams Team MemberRelationshipSpecialtyStart DateEnd Date Paul Shipman MD [address] [place] [address] PCP - GeneralFamily Medicine10/01/24 Lyla Cast CRNP [address] [facility] [place] [address] Referring PhysicianNurse Practitioner10/30/22documented as of this encounter
--- OUTSIDE RECORDS SUMMARY | 2025-03-22 08:59 | XMS_ITS | Encounter Summary ---
Author Organization [facility] Address [address] [place] [address] Care Team Providers Care Senior Software Qa Analyst Name Role Phone Lyla Cast Unavailable [phone] Paul Shipman MD Primary Care Provider + [phone] Encounter Details DateTypeDepartmentCare Team (Latest Contact Info)Ubzrjjdetun68/29/2025Travel Social History Tobacco UseTypesPacks/DayYears UsedDateSmoking Tobacco: NeverSmokeless Tobacco: NeverAlcohol UseStandard Drinks/WeekCommentsNever0 (1 standard drink = 0.6 oz pure alcohol)Sex and Gender InformationValueDate RecordedSex Assigned at Not on fileLegal ZqvTlcp9408/01/2022 7:32 PM EDTGender IdentityNot on fileSexual OrientationNot on filedocumented as of this encounter Plan of Treatment DateTypeDepartmentCare Team (Latest Contact Info)Hgtujgqymkm36/18/2025 10:45 AM ESTOffice Visit [facility] [address] [place] [id number] Anders Wagner DPM [address] [place] [address] documented as of this encounter Visit Diagnoses Not on filedocumented in this encounter Care Teams Team MemberRelationshipSpecialtyStart DateEnd Date Paul Shipman MD [address], [place] [address] PCP - GeneralFamily Medicine10/01/24 Lyla Cast CRNP [address] [place] [address] Referring PhysicianNurse Practitioner10/30/22documented as of this encounter
--- OUTSIDE RECORDS SUMMARY | 2025-03-22 08:59 | XMS_ITS | Clinical Summary ---
Author Organization [employer] tem Address [facility] [id number] [address] [place] [address] Care Team Providers Care Plastic Cutter Name Role Phone Jey Molina LAND LAW EXAMINER-FOXING CUTTING MACHINE OPERATOR Primary Care Provider + Allergies No known active allergies Medications * This document contains information received from the source organization and may not represent a complete record from that organization. MedicationSigDispense QuantityRefillsLast FilledStart DateEnd DateStatus ammonium lactate (AMLACTIN) 12 % cream Apply 1 Application topically as needed for dry skin.Active polyethylene glycol (GLYCOLAX) 17 gram/dose powder MIX 17 GRAMS IN 8 OZ OF WATER AND TAKE BY MOUTH NEEDED FOR NO STOOL IN 2 DAYS (DATE, TIME, INITIAL, EFFECT) 238 g ctive CHEST CONGESTION RELIEF 100 mg/5 mL syrup TAKE 10 ML BY MOUTH EVERY 6 HOURS NEEDED FOR COUGH 473 mL ctive DERMACERIN cream APPLY TOPICALLY TO SITES ON BILATERAL FEET ONCE EVERY DAY (6AM) 106 g ctive sodium chloride, bottle, (NS) 0.9 % irrigation CLEANSE RIGHT FOOT & APPLY MESALT DRESSING ONCE EVERY DAY AFTER SHOWERS (6AM) 500 mL ctive sterile water irrigation Indications:Suprapubic catheter (CMS-HCC)USE 30 CC'S TO IRRIGATE KLEIN CATHETER ONCE WEEKLY;USE 30 CC'S TO IRRIGATE KLEIN CATHETER NEEDED(IF NOT USING SOD CHLORIDE) 500 mL ctive TRIPLE ANTIBIOTIC 3.5mg-400 unit- 5,000 unit/gram ointment APPLY TOPICALLY TO SCRATCHES DAILY NEEDED (DATE, TIME, INITIAL, EFFECT) 28 g ctive psyllium husk, with sugar, (METAMUCIL FIBER THIN) 2 gram wafer Indications:Chronic constipationTAKE 2 WAFERS BY MOUTH ONCE EVERY DAY WITH MORNING MEDS 60 Wafer ctive ENEMA DISPOSABLE 19-7 gram/118 mL enema INSERT 1 SUPPOSITORY RECTALLY NEEDED IF NO BOWEL MOVEMENT AFTER 3 DAYS (DATE, TIME, INITIAL, EFFECT) 266 mL ctive psyllium husk, with sugar, (METAMUCIL FIBER THIN) 2.5 gram wafer TAKE 2 WAFERS BY MOUTH ONCE EVERY DAY WITH MORNING MEDS 60 each ctive lactulose (CHRONULAC) 10 gram/15 mL solution TAKE 15 ML (10GM) BY MOUTH TWICE DAILY 946 mL ctive acetaminophen (TYLENOL) 325 mg tablet TAKE 2 TABLETS (650MG) BY MOUTH EVERY 4 HOURS NEEDED FOR PAIN AND/OR TEMP (MAXIMUM LIMIT OF ACETAMINOPHEN FROM ALL SOURCES IS 4000 MG IN 24 HOURS) 60 tablet 5Active divalproex (DEPAKOTE ER) 500 mg 24 hr tablet Indications:Impulse control disorderTake 2 tablets (1,000 mg total) by mouth nightly. 62 tablet 5Active acidophilus-pectin, citrus 100 million cell-10 mg capsule TAKE 1 CAPSULE BY MOUTH THREE TIMES DAILY (8AM,3PM,8PM) 93 capsule 5Active oxybutynin XL (DITROPAN XL) 15 mg 24 hr tablet TAKE 1 TABLET BY MOUTH ONCE EVERY DAY (8PM) 31 tablet 5Active MYRBETRIQ 50 mg tablet extended release 24 hr Indications:Spastic neurogenic bladderTAKE 1 TABLET BY MOUTH ONCE EVERY DAY 31 tablet 5Active TAB-A-KENA MULTIVITAMIN W-IRON 18-400 mg-mcg tablet Indications:Chronic constipationTAKE 1 TABLET BY MOUTH ONCE EVERY DAY 30 tablet 5Active simvastatin (ZOCOR) 10 mg tablet TAKE 1 TABLET BY MOUTH EVERY NIGHT AT BEDTIME 30 tablet 5Active amLODIPine (NORVASC) 2.5 mg tablet TAKE 1 TABLET BY MOUTH ONCE EVERY DAY 30 tablet 5Active dilTIAZem CD (CARDIZEM CD) 240 mg 24 hr capsule TAKE 1 CAPSULE BY MOUTH ONCE EVERY DAY 30 capsule 5Active FeroSuL 325 mg (65 mg iron) tablet TAKE 1 TABLET BY MOUTH ONCE EVERY DAY WITH BREAKFAST 30 tablet 5Active lisinopriL (PRINIVIL,ZESTRIL) 30 mg tablet TAKE 1 TABLET BY MOUTH ONCE EVERY DAY 30 tablet 5Active SENNA PLUS 8.6-50 mg TAKE 2 TABLETS (17.2-100MG) BY MOUTH EVERY NIGHT AT BEDTIME 60 tablet 5Active citalopram (CeleXA) 40 mg tablet Indications:Other obsessive-compulsive disordersTake 1 tablet (40 mg total) by mouth in the morning. 30 tablet 5Active risperiDONE (RisperDAL) 2 mg tablet Indications:Restlessness and agitationTake 1 tablet (2 mg total) by mouth in the morning and 1 tablet (2 mg total) before bedtime. 60 tablet 5Active zinc gluconate 50 mg tablet Indications:Pressure ulcer of right foot, stage 1Take 1 tablet (50 mg total) by mouth in the morning. 31 tablet 5Active meloxicam (MOBIC) 7.5 mg tablet Indications:Osteoarthritis of multiple joints, unspecified osteoarthritis type Take 1 tablet (7.5 mg total) by mouth daily as needed for pain. 31 tablet 5Active LORazepam (ATIVAN) 2 mg tablet Indications:Anxiety due to invasive procedure,Impulse control disorder, Intellectual disabilityTAKE 1 TABLET BY MOUTH 1 HR PRIOR TO PHYSICIAN APPTS, PROCEDURES, LAB DRAWS OR DIAGNOSTIC TESTING NEEDED 10 tablet 5Active meloxicam (MOBIC) 7.5 mg tablet Indications:Osteoarthritis of multiple joints, unspecified osteoarthritis type take 1 tablet by mouth every morning 31 tablet Discontinued(Reorder) LORazepam (ATIVAN) 2 mg tablet Indications:Anxiety due to invasive procedure,Impulse control disorder, Intellectual disabilityTAKE 1 TABLET BY MOUTH 1 HR PRIOR TO PHYSICIAN APPTS, PROCEDURES, LAB DRAWS OR DIAGNOSTIC TESTING NEEDED 10 tablet 510/Discontinued(Reorder) Active Problems ProblemNoted DateDiagnosed DateBenign hypertension with stage 3a chronic kidney juvnxjy6901/25/2025Obsessive compulsive ewchgtqb94/06/2023ggressive behavior 09/24/20195427Slhxhf83/29/7701Natjrbuprnu14/12/2020Elevated vitamin B12 level 06/30/2019Low ppwozwcd80/11/2020Chronic oagwvonzbpyl09/16/2018Cerumen debris on tympanic membrane of both ears06/03/2017Mixed qiaozjgdxcylvm49/17/2017Impulse control ygbgncte40/24/2017Intellectual ukexgxdujo20/24/2017Hypertension 11/05/2016Spina rxmmlv7811/05/2016Spastic neurogenic ottepga5911/05/2016 Overview (10/16/2022): History of spina bifida. Managed with suprapubic tube. In 2008 I had met with his parents to discuss performing a urinary diversion for the patient and at that time the patient's parents did not wantto proceed with that. As time has gone on the patient has become more more combative with his suprapubic tube changes requiring 3 people to try to change this along with oral sedation. I had a long discussion with his sister who is the xwpef-wk-hqvtblnu along with his primary caregiver. I do [...] release 15 mg. Suprapubic catheter Resolved Problems ProblemNoted DateDiagnosed DateResolved DateRectum injury with open wound into ttaisd99Psychogenic Encounters * This document contains information received from the source organization and may not represent a complete record from that organization. DateTypeDepartmentCare YkknEprctqxpqme00/22/2025 11:00 AM EDTSupport Visit [facility] [address] [place] [address] [place] [address] Mandi Fuentes PA Suprapubic catheter ([facility]) (Primary Dx)03/10/2025Refill [facility] [address] [place] [address] Selma Blanc CMA Anxiety due to invasive procedure; Impulse control disorder; Intellectual medefvcllp59/16/2025Telephone [facility] [address] [place] [address] Selma Blanc CMA 03/02/2025Refill [facility] [address] [place] [address] Lyla Cast APRN-FOXING CUTTING MACHINE OPERATOR Osteoarthritis of multiple joints, unspecified osteoarthritis type02/08/2025 Results Follow-Up [facility] [address] [place] [address] [place] [address] [address] Dominique Hoskins APRN-SHON Urine Zxgjllh0902/02/2025 11:00 AM EDTSupport Visit [facility] [address] [place] [address] [place] [address] [address] Vincenzo Palacios MD Spastic neurogenic bladder (Primary Dx); [place] Urinary tract infection associated with cystostomy catheter, twvsgoe8001/26/2025 Refill [facility] [address] [place] [address] Lyla Cast APRN-FOXING CUTTING MACHINE OPERATOR Pressure ulcer of right foot, stage 10:45 AM EDTOffice Visit [facility] [address] [address] Paul Shipman DO Mixed hyperlipidemia (Primary Dx); Benign hypertension with stage 3a chronic kidney disease ([facility]); Primary hypertension; Intellectual disability; Impulse control disorder; Aggressive behavior; Suprapubic [place] Spina bifida without hydrocephalus, unspecified spinal region ([facility] Ispwvasgwp81/08/7295Yqzecm58/02/0585Lpkyqw66/11/2025 11:00 AM EDTSupport Visit [facility] [address] [place] [address] Imer Luna MD Suprapubic [place] (Primary Dx)from Last 3 Months Immunizations ImmunizationAdministration DatesNext DueCOVID-19, mRNA, LNP-S, PF, 30mcg/0.3mL Dose06/27/2020,05/30/2020DTaP06/20/2011H1N1 Inj04/27/2009Influenza (IM) Preservative Free04/03/2024Influenza, Injectable, quadrivalent (PF)03/22/2023, 03/26/2022,03/20/2021,03/10/2020,03/03/2019,03/06/2018,03/01/2017Influenza, Qaksqgxyvzs33/13/7691CIG8710/29/1983Pneumococcal Cabklbwxkpkpsj83/29/2013, 04/05/2006Td (adult), 2 Lf tetanus toxoid, preservative free, adqmwqfb35/21/1985 ,03/10/1984,10/29/1983Tdap07/13/1994Zoster Live04/21/2019,01/27/2019Zoster Vaccine Dcwqqgerrik29/03/2019,01/27/2019 Family History Medical HistoryRelationNameCommentsHeart failureFatherBipolar disorderMother Heart diseaseMotherHyperlipidemiaMotherHypertensionMotherParkinsonismMother HyperlipidemiaSisterHypertensionSisterRelationNameStatusCommentsFatherDeceased MotherAliveSisterAlive Social History Tobacco UseTypesPacks/DayYears UsedDateSmoking Tobacco: NeverSmokeless Tobacco: Never Tobacco Cessation:Counseling Given: No Alcohol UseStandard Drinks/WeekCommentsNo0 (1 standard drink = 0.6 oz pure alcohol)[facility] UtilitiesAnswerDate RecordedIn the past 12 months has [...] times a week01/25/2025How often do you attend catholic or episcopalian services?1 to 4 times per year01/25/2025Do you belong to any clubs or organizations such as catholic groups, unions, fraternal or athletic groups, or school groups?Yes01/25/2025How often do you attend meetings of the clubs or organizations you belong to?More than 4 times per year01/25/2025 Are you , , , , never , or living with a partner?Never apankle4401/25/2025Overall Financial Resource Strain (CARDIA)Answer Date RecordedHow hard is it for you to pay for the very basics like food, housing, medical care, and heating?Not hard at all01/25/2025PHQ-2AnswerDate RecordedTotal Rdldo336[facility] [place] of Occupational Health - Occupational Stress QuestionnaireAnswerDate [...] of a household?No01/25/2025hildcareAnswerDate RecordedDo problems getting child nutrition assistant make it difficult for you to work [...] InformationValueDate RecordedSex Assigned at BirthNot on fileLegal UzrUlzp9712/23/2014 11:23 AM EDTGender IdentityNot on fileSexual OrientationNot on file Last Filed Vital Signs Vital SignReadingTime TakenCommentsBlood Aixggvwd610/72001/25/2025 10:40 AM EDT Uvmfs276101/25/2025 10:40 AM OOSVvegvcoprsz70.3 ??C (97.3 ??F)01/25/2025 10:40 AM EDTRespiratory Klzw996701/25/2025 10:40 AM EDTOxygen Cjcgwrjtcl32%01/25/2025 10:40 AM EDTInhaled Oxygen Concentration--Owngrq78.9 kg (163 lb)01/25/2025 10:40 AM LXHYyqoll065.5 cm (5' 2.01 )01/25/2025 10:40 AM EDTBody Mass Index29.81 01/25/2025 10:40 AM EDT Plan of Treatment DateTypeDepartmentCare Team (Latest Contact Info)Qujllcattzu12/12/2025 9:00 AM ESTSupport Visit [facility] [address] [place] [address] Mandi Fuentes I, UBALDO [address] [place] [address] 06/03/2025 3:00 PM ESTOffice Visit [facility] [address] [place] [address] Jey Molina, LAND LAW EXAMINER-FOXING CUTTING MACHINE OPERATOR [address] [facility] , [address] [place], [place] [id number] Health MaintenanceDue DateLast DoneCommentsAdult BMI Follow Up Plan1980 COVID-19 Vaccine ( season), 06/27/2020, 05/30/2020Influenza Ckjeldq76, 03/22/2023, 03/26/2022, Additional history existsAdult BMI Lxvjnaeao81/12/2024Depression Ejptirtel25/12/2024Tobacco Wnqyqrssw49/olonoscopy , 02/15/2022, 12/17/2016RSV ( or age 60+ yrs) (1 - 1-dose 75+ series)2037Zoster (Shingles) HrhjpshUaoqkhidj44/03/2019, 04/21/2019, 01/27/2019, Additional history existsDTaP,Tdap and Td Vaccines Lyfciryurbtx19/27/2023, 06/20/2011, 07/13/1994, Additional history exists Medical Devices Not on file Procedures Procedure NamePriorityDate/TimeAssociated DiagnosisCommentsURINE CULTURERoutine 02/02/2025 4:57 PM EDT Spastic neurogenic bladder Suprapubic catheter (CMS-HCC) Urinary tract infection associated with cystostomy catheter, sequela LIBXIDASKDQ51/29/2022 7:14 AM EDT from Last 3 Months or Most Recently Relevant to Health Maintenance Results * (ABNORMAL) Urine Culture (02/02/2025 4:57 PM EDT)ComponentValueRef RangeTest MethodAnalysis TimePerformed AtPathologist SignatureCULTURE RESULTS>100,000 CFU/mL Extended Spectrum Beta Lactamase Escherichia coli(A)02/11/2025 7:47 AM [facility] QKRMNDT01,000-100,000 CFU/mL Escherichia coli(A)02/11/2025 7:47 AM [facility] Comment:variantCULTURE LPJUQWA49,000-50,000 CFU/mL Enterococcus species(A) 02/11/2025 7:47 AM [facility]ORYComment: Ampicillin or Amoxicillin is the drug of choice for uncomplicated cystitis caused by enterococci. Cephalosporins are inappropriate. CULTURE VHGZMHI88,000-50,000 CFU/mL Proteus mirabilis(A)02/11/2025 7:47 AM EDT [facility] ([facility])Anatomical Location / LateralityCollection Method / VolumeCollection TimeReceived TimeUrine (Urine, Indwelling Catheter)02/02/2025 4:57 PM EDT02/02/2025 4:57 PM EDT Narrative [facility] - 02/11/2025 7:47 AM EDT Dominique Hoskins NP requested workup on all organism 02/08/25 OrganismAntibioticMethodSusceptibilityExtended Spectrum Beta Lactamase Escherichia coliAmpicillin >=32.0: Resistant Extended Spectrum Beta Lactamase Escherichia coliAMP/SULBACTAM 4.0: Susceptible Extended Spectrum Beta Lactamase Escherichia coliPIPERACIL/TAZOBACTAM <=4.0: Susceptible Extended Spectrum Beta Lactamase Escherichia coliCefazolin (non-urinary) >=32.0: Resistant Extended Spectrum Beta Lactamase Escherichia coliCefazolin (urinary) >=32.0: Resistant Extended Spectrum Beta Lactamase Escherichia coliESBL Test Positive Comment:Organism produces an extended spectrum beta lactamase (ESBL). It may be clinically resistant to therapy with penicillins, cephalosporins, or aztreonam. Contact laboratory if further information is required.Extended Spectrum Beta Lactamase Escherichia coliErtapenem <=0.12: Susceptible Extended Spectrum Beta Lactamase Escherichia coliGentamicin <=1.0: Susceptible Extended Spectrum Beta Lactamase Escherichia coliCiprofloxacin 0.5: Intermediate Extended Spectrum Beta Lactamase Escherichia coliLevofloxacin 1.0: Intermediate Extended Spectrum Beta Lactamase Escherichia coliNitrofurantoin <=16.0: Susceptible Extended Spectrum Beta Lactamase Escherichia coliTrimethoprim + Sulfamethoxazole >=16.0: Resistant Escherichia coliAmpicillin 8.0: Susceptible Escherichia coliAMP/SULBACTAM 4.0: Susceptible Escherichia coliPIPERACIL/TAZOBACTAM <=4.0: Susceptible Escherichia coliCefazolin (non-urinary) <=1.0: Susceptible Escherichia coliCefazolin (urinary) <=1.0: Susceptible Escherichia coliCeftriaxone <=0.25: Susceptible Escherichia coliGentamicin <=1.0: Susceptible Escherichia coliCiprofloxacin >=4.0: Resistant Escherichia coliLevofloxacin >=8.0: Resistant Escherichia coliNitrofurantoin <=16.0: Susceptible Escherichia coliTrimethoprim + Sulfamethoxazole <=1.0: Susceptible Enterococcus speciesAmpicillin <=2.0: Susceptible Enterococcus speciesLevofloxacin 2.0: Susceptible Enterococcus speciesNitrofurantoin <=16.0: Susceptible Enterococcus speciesVancomycin 1.0: Susceptible Enterococcus speciesSusceptibility CommentProteus mirabilisAmpicillin <=2.0: Susceptible Proteus mirabilisAMP/SULBACTAM <=2.0: Susceptible Proteus mirabilisPIPERACIL/TAZOBACTAM <=4.0: Susceptible Proteus mirabilisCefazolin (non-urinary) 4.0: Intermediate Proteus mirabilisCefazolin (urinary) 4.0: Susceptible Proteus mirabilisCeftriaxone <=0.25: Susceptible Proteus mirabilisGentamicin <=1.0: Susceptible Proteus mirabilisCiprofloxacin <=0.06: Susceptible Proteus mirabilisLevofloxacin <=0.12: Susceptible Proteus mirabilisNitrofurantoin =128.0: Resistant Proteus mirabilisTrimethoprim + Sulfamethoxazole <=1.0: Susceptible Authorizing ProviderResult TypeResult StatusTimothy Raymond Philip MDMICROBIOLOGY - GENERAL ORDERABLESEdited Result - FinalPerforming OrganizationAddress City/State/ZIP CodePhone Number [facility] [address] [place] [address], * Colonoscopy (02/15/2022 7:14 AM EDT)Specimen (Source)Anatomical Location / LateralityCollection Method / VolumeCollection TimeReceived Time02/15/2022 7:14 AM EDT Narrative [facility] - 02/15/2022 7:55 AM EDT [facility] Patient Name: Igor Pereira ?? Procedure Date No Time: 02/15/2022 ?? CSN : [id number] Date of : 1960 Admit Type: Outpatient Age: 61 Room: [facility] Gender: Male Note Status: Finalized Attending MD: Imer Box DO Procedure: ? Colonoscopy Indications: ? Screening for colorectal malignant neoplasm, High risk ? colon cancer surveillance: Personal history of colonic ? polyps Providers: ? mIer Box DO Referring MD: ?Imer Box DO Medicines: ? Propofol per Anesthesia Complications: ? No immediate complications. Procedure: ? After I obtained informed consent, the scope was ? passed under direct vision. Throughout the procedure, ? the patient's blood pressure, pulse, and oxygen ? saturations were monitored continuously. The [facility] ? PCF-H190DL # [id number] PEDIATRIC COLONOSCOPE was ? introduced through the anus and advanced to the ? ascending colon. The colonoscopy was performed without ? difficulty. The colonoscopy was performed with ? difficulty due to inadequate bowel prep. The patient ? tolerated the procedure well. The quality of the bowel ? preparation was poor. Findings: ? The perianal and digital rectal examinations were normal. Estimated Blood Loss: ??Estimated blood loss: none. Impression: ?- Preparation of the colon was poor. ? - No specimens collected. Recommendation: ?- Discharge patient to home. ? - Patient has a contact number available for ? emergencies. The signs and symptoms of potential ? delayed complications were discussed with the patient. ? Return to normal activities tomorrow. Written ? discharge instructions were provided to the patient. ? - Repeat colonoscopy in 6 months because the bowel ? preparation was suboptimal. ? - Return to my office PRN. Procedure Code(s): ? --- Professional --- ? G0105, 53, Colorectal cancer screening; colonoscopy on ? individual at high risk Diagnosis Code(s): ? --- Professional --- ? Z86.010, Personal history of colonic polyps ? Z12.11, Encounter for screening for malignant neoplasm of colon CPT copyright 2020 [employer]. All rights reserved. The codes documented in this report are preliminary and upon bit shaver review may be revised to meet current compliance requirements. DO Imer Davalos DO 02/15/2022 7:55:07 AM Number of Addenda: 0 Note Initiated On: 02/15/2022 7:14 AM Procedure Note Imer Box DO - 02/15/2022 [facility] Patient Name: Igor Pereira Procedure Date No Time: 02/15/2022 CSN : [id number] Date of : 1960 Admit Type: Outpatient Age: 61 Room: [place] [address] Gender: Male Note Status: Finalized Attending MD: [...] pulse, and oxygen saturations were monitored continuously. [facility]-H[facility] # [id number] PEDIATRIC COLONOSCOPE was introduced through the anus [...] malignant neoplasm of colon CPT copyright 2020 [employer]. All rights reserved. The codes documented in this report are preliminary and upon bit shaver reviewmay be revised to meet current compliance requirements. DO Imer Davalos DO 02/15/2022 7:55:07 AM Number of Addenda: 0 Note Initiated On: 02/15/2022 7:14 AM Authorizing ProviderResult TypeResult StatusMicvickie BALDERAS PROCEDURE ORDERABLESFinal ResultPerforming OrganizationAddressCity/State/ZIP CodePhone Number [facility] from Last 3 Months or Most Recently Relevant to Health Maintenance Insurance Care Teams Team MemberRelationshipSpecialtyStart DateEnd Date Jey Molina, LAND LAW EXAMINER-FOXING CUTTING MACHINE OPERATOR [address] [place] [address] PCP - GeneralInternal Iecjiuiu80/16/25
--- OUTSIDE RECORDS SUMMARY | 2025-03-22 08:59 | XMS_ITS | Clinical Summary ---
Author Organization [facility] Address [address] [place] [address] Care Team Providers Care Mat Machine Tender Name Role Phone Lyla Cast MAGAN Unavailable [phone] Paul Shipman MD Primary Care Provider + [phone] Allergies No known active allergies Medications MedicationSigDispense QuantityRefillsLast FilledStart DateEnd DateStatus dextromethorphan 7.5 MG/5ML syrup Take 7.5 mg by mouth every 6 (six) hours if needed for coughActive LORazepam (Ativan) 2 MG tablet Take 2 mg by mouthActive Multiple Vitamins-Minerals (TAB-A-KENA MAXIMUM PO) Take by mouthActive senna-docusate (Fatimah-Colace) 8.6-50 MG tablet Take 1 tablet by mouth DailyActive risperiDONE (RisperDAL) 2 MG tablet Take 1.5 mg by mouth in the morning and 1.5 mg before bedtime.Active Mirabegron (MYRBETRIQ PO) Take by mouthActive ferrous sulfate 325 (65 Fe) MG tablet Take 325 mg by mouth in the morning. Take with meals.Active acetaminophen (Tylenol) 325 MG tablet Take by mouthActive Lactobacillus (ACIDOPHILUS PO) Take by mouthActive ammonium lactate (Lac-Hydrin) 12 % lotion Apply topically if needed for dry skinActive citalopram (CeleXA) 40 MG tablet Take 20 mg by mouthActive dilTIAZem CD (Cardizem CD) 240 MG 24 hr capsule Take 240 mg by mouth DailyActive carbamide peroxide (Debrox) 6.5 % otic solution 5 drops in the morning and 5 drops before bedtime.Active LACTULOSE ENCEPHALOPATHY PO Take by mouthActive lisinopril 30 MG tablet Take by mouth DailyActive psyllium (Metamucil) 28 % packet Take 1 packet by mouth in the morning and 1 packet before bedtime. Mix and drink with at least 8 ounces of water or juice.Active polyethylene glycol, PEG, 3350 (Glycolax) 17 GM/SCOOP powder Take by mouthActive omega-3 acid ethyl esters (Lovaza) 1 g capsule Take 1 g by mouth in the morning and 1 g before bedtime.Active oxybutynin XL (Ditropan-XL) 15 MG 24 hr tablet Take 15 mg by mouth Daily Do not crush, chew, or split.Active simvastatin (Zocor) 10 MG tablet Take 10 mg by mouth at bedtimeActive bacitracin 500 UNIT/GM ointment Apply topically in the morning and before bedtime.Active Multiple Vitamin (multivitamin) tablet Take 1 tablet by mouth DailyActive miconazole (Micotin) 2 % powder Apply topically if needed for itchingActive lactulose (Chronulac) 10 GM/15ML solution Take 20 g by mouth in the morning and 20 g in the evening and 20 g before bedtime.Active raNITIdine (Zantac) 150 MG tablet Take 150 mg by mouth in the morning and 150 mg before bedtime.Active citalopram (CeleXA) 20 MG tablet Take by mouthActive guaiFENesin (Robitussin) 100 MG/5ML liquid Take 200 mg by mouth as needed in the morning and 200 mg as needed at noon and 200 mg as needed in the evening for cough.Active meloxicam (Mobic) 7.5 MG tablet Take by mouthActive amLODIPine (Norvasc) 2.5 MG tablet Take 2.5 mg by mouth DailyActive Menthol-Zinc Oxide (Calmoseptine) 0.44-20.6 % ointment Apply topicallyActive Skin Protectants, Misc. (DERMACERIN EX) Apply topicallyActive sodium phosphate (Fleet) 3.5-9.5 GM/59ML enema Insert into the rectumActive hydrocortisone (Proctozone-HC) 2.5 % rectal cream Insert into the rectum in the morning and before bedtime.Active Water For Irrigation, Sterile (Halma Sterile Water) solution Irrigate with as directedActive zinc gluconate 50 MG tablet Take 50 mg by mouth DailyActive divalproex (Depakote ER) 250 MG 24 hr tablet Take 250 mg by mouth Daily Do not crush, chew, or split.Active Active Problems No known active problems Encounters DateTypeDepartmentCare RatmPcdrbiauobi56/29/2025 10:45 AM EDTOffice Visit [facility] [address] [place] [address] Anders Wagner DPM Stage II pressure ulcer of right heel (CMS-HCC) (Primary Dx); Hereditary sensory-motor neuropathy, type I; Flaccid paraplegia, incomplete, at lumbar level (HCC); Lumbar spina bifida without hydrocephalus (HCC)03/17/2025bstract [facility] [address] [place] [address] Anders Wagner DPM 03/17/2025amb flowsheet [facility] [address] [place] [address] Anders Wagner DPM 03/17/20259413Tyqnls69/07/2025 3:30 PM EDTOffice Visit [facility] [address] [place] [address] Anders Wagner DPM Stage II pressure ulcer of right heel (CMS-HCC) (Primary Dx); Hereditary sensory-motor neuropathy, type I; Flaccid paraplegia, incomplete, at lumbar level (HCC); Lumbar spina bifida without hydrocephalus (HCC)02/23/2025amb flowsheet [facility] [address] [place] [address] Anders Wagner DPM 02/23/20251678Bzzdiw42/06/5667Twgkbu80/22/2025 10:30 AM EDTOffice Visit [facility] [address] [place] [address] Anders Wagner DPM Stage II pressure ulcer of right heel (CMS-HCC) (Primary Dx); Hereditary sensory-motor neuropathy, type I; Flaccid paraplegia, incomplete, at lumbar level (HCC); Lumbar spina bifida without hydrocephalus (HCC)02/08/2025amboo flowsheet [facility] [address] [place] [address] Anders Wagner, DPM 02/08/20258305Aoczxm02/18/2025[facility]phone [facility] [address] [place] [address] Anders Wagner, DPM Advice Only (No show x 3 )02/03/20254090Azektn90/28/2025 11:00 AM EDTOffice Visit [facility] [address] [place] [address] Anders Wagner DPM Stage II pressure ulcer of right heel (CMS-HCC) (Primary Dx); Hereditary sensory-motor neuropathy, type I; Flaccid paraplegia, incomplete, at lumbar level (HCC); Lumbar spina bifida without hydrocephalus (HCC)01/14/2025bstract [facility] [address] [place] [address] Anders Wagner, DPM 01/14/2025amboo flowsheet [facility] [address] [place] [address] Anders Wagner, DPM 01/14/20256081Yclnwp99/27/6305Binese37/07/2025 11:00 AM EDTOffice Visit [facility] [address] [place] [address] Anders Wagner DPM Stage II pressure ulcer of right heel (CMS-HCC) (Primary Dx); Hereditary sensory-motor neuropathy, type I; Flaccid paraplegia, incomplete, at lumbar level (HCC); Lumbar spina bifida without hydrocephalus (HCC)12/24/2024amboo flowsheet [facility] [address] [place] [address] Anders Wagner, DPM 12/24/20248030Towevf28/06/2025Travelfrom Last 3 Months Immunizations ImmunizationAdministration DatesNext DrmKElR0806/20/2011Influenza, Unspecified 03/01/2017Influenza, injectable, quadrivalent, preservative free03/22/2023, 03/26/2022,03/20/2021,03/10/2020,03/03/2019,03/06/2018,03/06/2017,03/01/2017, 03/05/2016Influenza, seasonal, injectable, preservative free04/03/2024MMR 10/29/1983Moderna SARS-CoV-2 Gujfxxbqyba95/28/2022,06/27/2020,05/30/2020Novel daqrqpqjo-Y1J0-5213/09/2009Pfizer Purple Cap SARS-CoV-2 Bdgqsdxfoua36/08/2021, 05/30/2020neumococcal Polysaccharide DSUM844106/17/2012,04/05/2006TD (adult), 2 Lf tetanus toxoid, preservative free, /21/1985,03/10/1984,10/29/1983 Tdap08/13/2022,07/13/1994Zoster, Zyxtpmansar49/03/2019,01/27/2019Zoster, live 04/21/2019,01/27/2019 Family History Medical HistoryRelationNameCommentsMental illnessMaternal GrandfatherRelation NameStatusCommentsFatherAliveMaternal GrandfatherMotherAliveSisterFormerly Morehead Memorial Hospitalroxane Thomas his guardian Social History Tobacco UseTypesPacks/DayYears UsedDateSmoking Tobacco: NeverSmokeless Tobacco: Never Tobacco Cessation:Counseling Given: Not Answered Alcohol UseStandard Drinks/WeekCommentsNever0 (1 standard drink = 0.6 oz pure alcohol)Sex and Gender InformationValueDate RecordedSex Assigned at BirthNot on fileLegal BdwLvpa1608/01/2022 7:32 PM EDTGender IdentityNot on fileSexual OrientationNot on file Last Filed Vital Signs Vital SignReadingTime TakenCommentsBlood Siatlprn319/6902/03/2020 12:00 PM EST Pulse--Hlreqnctwon04.9 ??C (98.5 ??F)10/01/2024 3:56 PM EDTRespiratory Rate-- Oxygen Saturation--Inhaled Oxygen Concentration--Qoxnam87 kg (150 lb)03/17/2025 10:38 AM ALPHdwmhr007.4 cm (5')03/17/2025 10:38 AM EDTBody Mass Index29.29 03/17/2025 10:38 AM EDT Plan of Treatment DateTypeDepartmentCare Team (Latest Contact Info)Zmikmtrrljj97/18/2025 10:45 AM ESTOffice Visit [facility] [address] [place] [address] Anders Wagner, DPM [address] [place] [address] Health MaintenanceDue DateLast DoneCommentsCT Lujnzfvnwqqm1962FIT-DNA 1962FIT1962FOBT9215Ophtuytjgskmi1962COVID-19 Vaccine ( season)/, 06/27/2020, 06/27/2020, Additional history existsInfluenza Vaccine (#1)/, 03/22/2023, 03/26/2022, Additional history rttphpIuxsgrtoziw91/29/203209/2Colorectal Cancer Pczgkjtdw67/29/2032DTaP/Tdap/Td Vaccines (7 - Td or Tdap)08/13/2032 08/13/2022, 06/20/2011, 07/13/1994, Additional history existsMMR Vaccines Knaqylagg97/11/1984Pneumococcal Vaccine: Pediatrics (0 to 5 Years) and At-Risk Patients (6 to 64 Years)Aged Out04/17/2013, 04/05/2006No longer eligible based on patient's age to complete this topicHIB VaccinesAged OutNo longer eligible based on patient's age to complete this topicHPV VaccinesAged OutNo longer eligible based on patient's age to complete this topicHepatitis A VaccinesAged OutNo longer eligible based on patient's age to complete this topicHepatitis B VaccinesAged OutNo longer eligible based on patient's age to complete this topic IPV VaccinesAged OutNo longer eligible based on patient's age to complete this topicMeningococcal B VaccineAged OutNo longer eligible based on patient's age to complete this topicMeningococcal VaccineAged OutNo longer eligible based on patient's age to complete this topicRotavirus VaccinesAged OutNo longer eligible based on patient's age to complete this topic Insurance Care Teams Team MemberRelationshipSpecialtyStart DateEnd Paul Shipman MD [address] [facility] [place] [address] PCP - GeneralFamily Medicine10/01/24 Lyla Cast CRNP [address] [facility] [place] [address] Referring PhysicianNurse Practitioner10/30/22
--- OUTSIDE RECORDS SUMMARY | 2025-03-22 08:59 | XMS_ITS | Patient Health Record ---
Author Organization [facility] Address [address] [place] [address] Care Team Providers Care Measurement Supervisor Name Role Phone Anders Sandoval Unavailable [phone] Luz Marina Thompson Unavailable Allergies No Known Allergies Results Component Value Reference Range Notes SCC- HAND 3 VIEW RIGHT [id number] Reviewed date:09/28/2024 01:45:24 PM Interpretation: Performing Lab: Notes/Report: SCC- HAND 3 VIEW RIGHT [id number] Reviewed date:08/20/2024 03:17:56 PM Interpretation: Performing Lab: Notes/Report: Reason For Referral No Information Medications Medication SIG (Take, Route, Frequency, Duration) Notes Start Date End Date Status Myrbetriq ActiverisperiDONEActivecitalopramActiveoxyBUTYninActiveamLODIPineActive simvastatinActivedilTIAZemActiveSennaActiveDermacinrx VentrixylActiveZinc with Vitamin CActiveFeroSulActiveSodium ChlorideActivedivalproex sodiumActive lisinoprilActivelactuloseActiveMetamucilActivemeloxicamActiveAcidophilusActive Social History AUDIT-C (Standard) Question Answer Notes Did you have a drink containing alcohol in the p ast year? No Zufyxx6EaazcbnviytvvpWxwsaqyv Problems Problem Type SNOMED Code ICD Code Onset Dates Problem Status W/U Status Risk Notes Problem 63553422110617 Nondisplaced fra cture of middle phalanx of right ring finger, subsequent encounter for fracture with routine healing (S62.654D) Activeconfirmed Vital Signs Height 5'2 in 10/26/2024 Wvheyp617 lbs10/26/2024BMI29.26010/26/2024 Encounters Encounter Location Date Provider Diagnosis [facility] [address] [place] [address] [place] [address] 08/17/2024 Anders Sandoval Hand pain, right M79.641 and Closed nondisplaced fracture of middle phalanx of right ring finger, initial encounter S62.654A [facility] [address] [place] [address] 09/14/2024 [place] Nondisplaced fracture of middle phalanx of right ring finger, subsequent encounter for fracture with routine healing S62.654D [facility] [address] [place] [address] 10/26/2024 Anders Sandoval Nondisplaced fracture of middle phalanx of right ring finger, subsequent encounter for fracture with routine healing S62.654D Assessments Encounter Date Diagnosis (ICD Code) Assessment Notes Treatment Notes Treatment Clinical Notes Section Notes 08/17/2024 Hand pain, right (ICD-10 - M79.6 41) 08/17/2024losed nondisplaced fracture of middle phalanx of right ring finger, initial encounter (ICD-10 - S62.654A)09/14/2024Nondisplaced fracture of middle phalanx of right ring finger, subsequent encounter for fracture with routine healing (ICD-10 - S62.654D)10/26/2024Nondisplaced fracture of middle phalanx of right ring finger, subsequent encounter for fracture with routine healing (ICD- 10 - S62.654D)08/17/2024Other For his right ring finger middle phalanx fracture we will continue to treat this symptomatically. They will continue with the wheelchair. Bracing and lamberto taping have not worked due to his inabilityto keep these on. He will follow-up in 4 weeks to repeat x-rays and reassess his progress. Import medication 09/14/2024OtherPatient is now about 6 weeks out from the time his caregivers have noticed his bruising on this hand and is doing well. He can gradually start to use his crutches more as tolerated. We will see him back in 6 weeks for reevaluation and to repeat x-rays.10/26/2024Other Patient is doing well. He will continue with activities as tolerated and follow- up here on an as-needed basis. Import medication Plan Of Treatment Pending Test Test Name Order Date SCC- HAND 3 VIEW RIGHT [id number] 10/26/2024 Insurance Providers Payer Name Payer Address Payer Phone Subscriber Number Group Number Insured Name Patient Relationship to Insured Coverage Start Date Coverage [place] [address] [place] [address] [id number] Nahun VALLES - patient is the insuredInio Dept of MedicaidP [address] [place] [id number], THOMASSelf - patient is the insured Medical (General) History Medical History History ICD Code Kidney trouble
--- OUTSIDE RECORDS SUMMARY | 2025-03-22 08:59 | XMS_ITS | Clinical Summary ---
Author Organization [facility] Address [address] [place], [place] [id number] Care Team Providers Care Filer Repairer Name Role Phone Jeronimo Lara Primary Care Provider Medications MedicationSigDispense QuantityRefillsLast FilledStart DateEnd DateStatus lactobacillus acidophilus (ACIDOPHILUS) ORAL Cap Take 2 capsules by mouth three times daily.Active amoxicillin 500 mg ORAL capsule Take 500 mg by mouth once daily.10/10/2010ctive bisacodyl (DULCOLAX) 10 mg RECTAL Supp 10 mg by RECTAL route once daily as needed.Active sodium phosphate-sodium bisphosphate RECTAL enema 1 Enema by RECTAL route one time only. one enema if no BM in 48 hrsActive diltiazem LA (CARDIZEM LA) 240 mg ORAL 24 hr tablet Take 240 mg by mouth once daily.Active ferrous sulfate 324 mg (65 mg Iron) ORAL TbEC Take 324 mg by mouth once daily.Active CALCIUM POLYCARBOPHIL (KONSYL FIBER ORAL) Take by mouth. 1 tsp in 8 oz po bidActive lisinopril (PRINIVIL) 20 mg ORAL tablet Take 20 mg by mouth once daily.Active multivitamin ORAL tablet Take 1 tablet by mouth once daily.Active oxybutynin XL 15 mg ORAL 24 hr tablet Take 15 mg by mouth once daily.Active SENNOSIDES/DOCUSATE SODIUM (SENNA PLUS ORAL) Take by mouth. 3 tabs po at hsActive Acetaminophen 650 mg ORAL Tab Take by mouth. every 4 hours prnActive Ranitidine HCl 150 mg ORAL Pack Take by mouth. qd prn for heartburn, indigestionActive peg 3350-Electrolytes 236-22.74-6.74 gram ORAL suspension Take by mouth once daily. once . 1 Container ctive lactulose (ENULOSE) 10 gram/15 mL ORAL solution Take 15 mL by mouth. 20 Gm / 30 ml daily 480 mL ctive COMPOUNDED PRESCRIPTION once daily. Enemeez enema per rectum daily 30 Enema ctive docusate (ENEMEEZ) 283 mg RECTAL enema 1 Enema by RECTAL route once daily. 60 Each ctive Family History Medical HistoryRelationCommentsGIMothercolon polypsRelationStatusCommentsMother Social History Tobacco UseTypesPacks/DayYears UsedDateSmoking Tobacco: NeverAlcohol UseStandard Drinks/WeekCommentsNo0 (1 standard drink = 0.6 oz pure alcohol)Sex and Gender InformationValueDate RecordedSex Assigned at BirthNot on fileLegal SexMale 04/20/2012 8:36 AM ESTGender IdentityNot on fileSexual OrientationNot on file Last Filed Vital Signs Vital SignReadingTime TakenCommentsBlood Uanpqjtw041/7410/10/2010 1:41 PM EDT Bfasz506910/10/2010 1:41 PM EDTTemperature--Respiratory Rate--Oxygen Hordbgzbnn37% 10/10/2010 1:41 PM EDTInhaled Oxygen Concentration--Weight--Height--Body Mass Index-- Plan of Treatment Health MaintenanceDue DateLast DoneCommentsAnxiety Yvoiwccqw25/20/1980Depression Kguldlhpk44/20/1980HIV Fkiulutao24/20/1980Hepatitis C Rrzypuitv22/20/1980 DTaP,Tdap,Td Vaccine (1 - Tdap)1981Lipid Ylsgvnnoz14/20/1997CT Vkcafcgkvwrq13/20/2007Cologuard (FIT-DNA)03/08/20072211Qzyufsvpxcl59/20/2007 Colorectal Cancer Vfuiaufyy74/20/2007Diabetes Gxkbrornp16/20/2007Fecal Occult Blood2007Prostate Cancer Screening Rxtocbdgbi08/20/2007Sigmoidoscopy 2007Pneumococcal Vaccine: 50+ (1 of 1 - PCV)2012Shingrix Vaccine (1 of 2)2012Covid-19 Vaccine (1 - 2024- season)2025Influenza Vaccine (#1)2025RSV Vaccine (1 - 1-dose 75+ series)2037 Insurance Care Teams Team MemberRelationshipSpecialtyStart DateEnd Date Jeronimo Lara [address] [facility] [place] [address] PCP - GeneralFamily Medicine08/31/10
--- OUTSIDE RECORDS SUMMARY | 2025-03-30 06:42 | XMS_ITS | Encounter Summary ---
Author Organization [facility] Address [address] [place] [address] Care Team Providers Care Integrity Specialist Name Role Phone Lyla Cast Unavailable [phone] Paul Shipman MD Primary Care Provider + [phone] Encounter Details DateTypeDepartmentCare Team (Latest Contact Info)Jectcrvispt31/29/2025Travel Social History Tobacco UseTypesPacks/DayYears UsedDateSmoking Tobacco: NeverSmokeless Tobacco: NeverAlcohol UseStandard Drinks/WeekCommentsNever0 (1 standard drink = 0.6 oz pure alcohol)Sex and Gender InformationValueDate RecordedSex Assigned at Not on fileLegal OdrNirk4808/01/2022 7:32 PM EDTGender IdentityNot on fileSexual OrientationNot on filedocumented as of this encounter Plan of Treatment DateTypeDepartmentCare Team (Latest Contact Info)Etpgrordrbx74/18/2025 10:45 AM ESTOffice Visit [facility] [address] [address] Anders Wagner DPM [address] [place] [address] documented as of this encounter Visit Diagnoses Not on filedocumented in this encounter Care Teams Team MemberRelationshipSpecialtyStart DateEnd Date Paul Shipman MD [address] [place] [address] PCP - GeneralFamily Medicine10/01/24 Lyla Cast CRNP [address] [facility] [place] [address] Referring PhysicianNurse Practitioner10/30/22documented as of this encounter
--- OUTSIDE RECORDS SUMMARY | 2025-03-30 06:42 | XMS_ITS | Encounter Summary ---
Author Organization [facility] Address [address] [facility] [place] [address] Care Team Providers Care Cosmetics Counter Manager Name Role Phone Lyla Cast MAGAN Unavailable [phone] Paul Shipman MD Primary Care Provider + [phone] Encounter Details DateTypeDepartmentCare Team (Latest Contact Info)Opbghxrhbvp28/29/2025amboo flowsheet [facility] [address] [place] [address] Anders Wagner DPM [address] [place] [place], [place] [address] Social History Tobacco UseTypesPacks/DayYears UsedDateSmoking Tobacco: NeverSmokeless Tobacco: NeverAlcohol UseStandard Drinks/WeekCommentsNever0 (1 standard drink = 0.6 oz pure alcohol)Sex and Gender InformationValueDate RecordedSex Assigned at Not on fileLegal EzuJxbj2408/01/2022 7:32 PM EDTGender IdentityNot on fileSexual OrientationNot on filedocumented as of this encounter Plan of Treatment DateTypeDepartmentCare Team (Latest Contact Info)Dfwozexdvjb77/18/2025 10:45 AM ESTOffice Visit [facility] [address] [place] [address] Anders Wagner DPM [address] [place], [place] [address] documented as of this encounter Visit Diagnoses Not on filedocumented in this encounter Care Teams Team MemberRelationshipSpecialtyStart DateEnd Date Paul Shipman MD [address] [place] [address] PCP - GeneralFamily Medicine10/01/24 Lyla Cast CRNP [address] [facility] [place] [address] Referring PhysicianNurse Practitioner10/30/22documented as of this encounter
--- OUTSIDE RECORDS SUMMARY | 2025-03-30 06:42 | XMS_ITS | Encounter Summary ---
Author Organization [facility] Address [address] [facility] [place] [address] Care Team Providers Care Graphic Illustrator Name Role Phone Lyla Cast MAGAN Unavailable [phone] Paul Shipman MD Primary Care Provider + [phone] Encounter Details DateTypeDepartmentCare Team (Latest Contact Info)Vwyowjpuetf68/29/2025bstract [facility] [address] [place] [address] Anders Wagner DPM [address] [place], [place] [address] Social History Tobacco UseTypesPacks/DayYears UsedDateSmoking Tobacco: NeverSmokeless Tobacco: NeverAlcohol UseStandard Drinks/WeekCommentsNever0 (1 standard drink = 0.6 oz pure alcohol)Sex and Gender InformationValueDate RecordedSex Assigned at Not on fileLegal QbnFres8608/01/2022 7:32 PM EDTGender IdentityNot on fileSexual OrientationNot on filedocumented as of this encounter Plan of Treatment DateTypeDepartmentCare Team (Latest Contact Info)Mxnlfzogomx66/18/2025 10:45 AM ESTOffice Visit [facility] [address] [place] [address] Anders Wagner DPM [address] [place], [place] [address] documented as of this encounter Visit Diagnoses Not on filedocumented in this encounter Care Teams Team MemberRelationshipSpecialtyStart DateEnd Date Paul Shipman MD [address] [place] [address] PCP - GeneralFamily Medicine10/01/24 Lyla Cast CRNP [address] [facility] [place] [address] Referring PhysicianNurse Practitioner10/30/22documented as of this encounter
--- OUTSIDE RECORDS SUMMARY | 2025-03-30 06:42 | XMS_ITS | Clinical Summary ---
Author Organization [facility] Address [address] [place] [address] Care Team Providers Care Bridges And Buildings Supervisor Name Role Phone Lyla Cast MAGAN Unavailable [phone] Paul Shipman MD Primary Care Provider + [phone] Allergies No known active allergies Medications MedicationSigDispense [...] and before bedtime.Active Water For Irrigation, Sterile ([place] Sterile Water) solution Irrigate with as directedActive zinc gluconate 50 MG tablet Take 50 mg by mouth DailyActive divalproex (Depakote ER) 250 MG 24 hr tablet Take 250 mg by mouth Daily Do not crush, chew, or split.Active Active Problems No known active problems Encounters DateTypeDepartmentCare MnqmOsyeimuivin03/29/2025 10:45 AM EDTOffice Visit [facility] [address] [place] [address] Anders Wagner DPM Stage II pressure ulcer of right heel (CMS-HCC) (Primary Dx); Hereditary sensory-motor neuropathy, type I; Flaccid paraplegia, incomplete, at lumbar level (HCC); Lumbar spina bifida without hydrocephalus (HCC)03/17/2025bstract [facility] [address] [place] [address] Anders Wagner DPM 03/17/2025amb flowsheet [facility] [address] [place] [address] Anders Wagner DPM 03/17/20258042Rmrylj83/07/2025 3:30 PM EDTOffice Visit [facility] [address] [place] [address] Anders Wagner DPM Stage II pressure ulcer of right heel (CMS-HCC) (Primary Dx); Hereditary sensory-motor neuropathy, type I; Flaccid paraplegia, incomplete, at lumbar level (HCC); Lumbar spina bifida without hydrocephalus (HCC)02/23/2025amb flowsheet [facility] [address] [place] [address] Anders Wagner DPM 02/23/20254608Ljxpas37/06/8988Nqhikg38/22/2025 10:30 AM EDTOffice Visit [facility] [address] [place] [address] Anders Wagner DPM Stage II pressure ulcer of right heel (CMS-HCC) (Primary Dx); Hereditary sensory-motor neuropathy, type I; Flaccid paraplegia, incomplete, at lumbar level (HCC); Lumbar spina bifida without hydrocephalus (HCC)02/08/2025amboo flowsheet [facility] [address] [place] [address] Anders Wagner, DPM 02/08/20256958Vnyuvg52/18/2025Telephone [facility] [address] [place] [address] Anders Wagner DPM Advice Only (No show x 3 )02/03/20254623Rvpitn02/28/2025 11:00 AM EDTOffice Visit [facility] [address] [place] [address] Anders Wagner DPM Stage II pressure ulcer of right heel (CMS-HCC) (Primary Dx); Hereditary sensory-motor neuropathy, type I; Flaccid paraplegia, incomplete, at lumbar level (HCC); Lumbar spina bifida without hydrocephalus (HCC)01/14/2025bstract [facility] [address] [place] [address] Anders Wagner DPM 01/14/2025amboo flowsheet [facility] [address] [place] [address] Anders Wagner DPM 01/14/20253860Ztjxab50/27/2025Travelfrom Last 3 Months Immunizations ImmunizationAdministration DatesNext BdxDHjO8706/20/2011Influenza, Unspecified 03/01/2017Influenza, injectable, quadrivalent, preservative free03/22/2023, 03/26/2022,03/20/2021,03/10/2020,03/03/2019,03/06/2018,03/06/2017,03/01/2017, 03/05/2016Influenza, seasonal, injectable, preservative free04/03/2024MMR 10/29/1983Moderna SARS-CoV-2 Wbwfiwoqdfg30/28/2022,06/27/2020,05/30/2020Novel ujcrzvaxj-T3I4-5557/09/2009Pfizer Purple Cap SARS-CoV-2 Tpahgysqyfz59/08/2021, 1Pneumococcal Polysaccharide NKQR659506/17/2012,04/05/2006TD (adult), 2 Lf tetanus toxoid, preservative free, shazljxm19/21/1985,03/10/1984,10/29/1983 Tdap08/13/2022,07/13/1994Zoster, Bcrgskhtsyr89/03/2019,01/27/2019Zoster, live 04/21/2019,01/27/2019 Family History Medical HistoryRelationNameCommentsMental illnessMaternal GrandfatherRelation NameStatusCommentsFatherAliveMaternal GrandfatherMotherAliveSisterKatroxane Thomas his guardian Social History Tobacco UseTypesPacks/DayYears UsedDateSmoking Tobacco: NeverSmokeless Tobacco: Never Tobacco Cessation:Counseling Given: Not Answered Alcohol UseStandard Drinks/WeekCommentsNever0 (1 standard drink = 0.6 oz pure alcohol)Sex and Gender InformationValueDate RecordedSex Assigned at BirthNot on fileLegal RdwHqel5708/01/2022 7:32 PM EDTGender IdentityNot on fileSexual OrientationNot on file Last Filed Vital Signs Vital SignReadingTime TakenCommentsBlood Dwbjwkfl489/69006/30/2019 12:00 PM EST Pulse--Evofgevnbqu06.9 ??C (98.5 ??F)10/01/2024 3:56 PM EDTRespiratory Rate-- Oxygen Saturation--Inhaled Oxygen Concentration--Isjrwq42 kg (150 lb)03/17/2025 10:38 AM IQIRcjgbl471.4 cm (5')03/17/2025 10:38 AM EDTBody Mass Index29.29 03/17/2025 10:38 AM EDT Plan of Treatment DateTypeDepartmentCare Team (Latest Contact Info)Sqprmlhkvmx11/18/2025 10:45 AM ESTOffice Visit [facility] [address] [place] [address] Anders Wagner, DPM [address] [facility] [place] [address] Health MaintenanceDue DateLast DoneCommentsCT Kfisummnywxu1962FIT-DNA 1962FIT1962FOBT1962 4418Whekgocduzcyn1962OVID-19 Vaccine ( season)502/, 06/27/2020, 06/27/2020, Additional history existsInfluenza Vaccine (#1)/, 03/22/2023, 03/26/2022, Additional history pwbdtpCmfffptppns17/29/203209/olorectal Cancer Ldnvfbvct69/29/2032neumococcal Vaccine: Pediatrics (0 to 5 Years) and At-Risk Patients (6 to 64 Years)Aged Out04/17/2013, 04/05/2006No longer eligible based on patient's age to complete this topic Insurance * Guarantor: Igor Pereira TypeRelation to PatientDate of BirthPhone Billing AddressPersonal/HaxsejRlwg1960 [facility] [place] [address] Care Teams Team MemberRelationshipSpecialtyStart DateEnd Date Paul Shipman MD [address] [facility] [[email or web address] [place] [address] [facility] - [facility] Lyla Cast CRNP [address] [facility] [place] [address] Referring PhysicianNurse Practitioner10/30/22
--- OUTSIDE RECORDS SUMMARY | 2025-03-30 06:42 | XMS_ITS | Clinical Summary ---
Author Organization [facility] Address [address] [place], [place] [address] Care Team Providers Care Extension Forester Name Role Phone Jeronimo Lara Primary Care Provider [phone] Medications MedicationSigDispense QuantityRefillsLast FilledStart DateEnd DateStatus lactobacillus [...] Last Filed Vital Signs Vital SignReadingTime TakenCommentsBlood Yyctzdyi813/7410/10/2010 1:41 PM EDT Oqtys988310/10/2010 1:41 PM EDTTemperature--Respiratory Rate--Oxygen Faxrerxtod65% 10/10/2010 1:41 PM EDTInhaled Oxygen Concentration--Weight--Height--Body Mass Index-- Plan of Treatment Health MaintenanceDue DateLast DoneCommentsAnxiety Ketkrqzbt58/20/1980Depression Snzsxnlse54/20/1980HIV Iswbdhpmj26/20/1980Hepatitis C Dqxeuujcm62/20/1980 DTaP,Tdap,Td Vaccine (1 - Tdap)1981Lipid Gejjgearn60/20/1997CT Zlfgdtefajfo55/20/2007Cologuard (FIT-DNA)03/08/20077185Nsrakhunioq39/20/2007 Colorectal Cancer Yhythaxlb24/20/2007Diabetes Dhyqwpwzt44/20/2007Fecal Occult Blood2007Prostate Cancer Screening Oiaoypfbsi11/20/2007Sigmoidoscopy 2007Pneumococcal Vaccine: 50+ (1 of 1 - PCV)2012Shingrix Vaccine (1 of 2)2012Covid-19 Vaccine (1 - 2024- season)2025Influenza Vaccine (#1)2025RSV Vaccine (1 - 1-dose 75+ series)2037 Insurance Care Teams Team MemberRelationshipSpecialtyStart DateEnd Date Jeronimo Lara [address] [facility] [place] [phone] PCP - GeneralFamily Medicine08/31/10
--- OUTSIDE RECORDS SUMMARY | 2025-03-30 06:42 | XMS_ITS | Clinical Summary ---
Author Organization [facility] Address [address] [facility] [place] [place] [address] Care Team Providers Care Ssrs Report Developer Name Role Phone Unavailable Primary Care Provider Unavailabl e Source Comments The following information is NOT included in Care Everywhere downloads:Psychiatric notes, ECG results, Cardiac Rehab notes, Pulmonary Function notes, data from [facility] (includes but not limited toPregnancy data,audiograms, eye exams, pre-surgical evaluation notes, well-child exam data).[facility] Allergies No known active allergies Medications [...] TABS Take 1 Tablet by mouth daily.Active dfoyp-1-aucu (LOVAZA) 1 GM capsule Take 1,000 mg [...] by mouth daily.Active Active Problems ProblemNoted DateDiagnosed PtucEhnadi72/16/2022 Overview (08/02/2021): Added automatically from request for surgery [id number] Immunizations ImmunizationAdministration DatesNext DueDTaP (CVX=20)06/20/2011Influenza, injectable, quadrivalent, preservative free (AWC=455)03/26/2022,03/20/2021, 03/10/2020,03/03/2019,03/06/2018,03/06/2017,03/01/2017,03/05/2016Influenza, novel J5W0-48, injectable (MFR=101)04/27/2009MMR, Prjvdyt-Ietan-Csndlih (CVX=03) 10/29/1983Moderna Monovalent (12+ yrs) COVID-19 vaccine, mRNA, spike protein, LNP, PF, 100 mcg/0.5 mL (ZPQ=844)07/17/2021,06/27/2020,1Pneumococcal polysaccharide 23 Valent (PPSV23) (CVX=33)04/17/2013,04/05/2006Td (adult), 2 Lf tetanus toxoid, preservative free, adsorbed (CVX=09)03/09/1985,03/10/1984, 10/29/1983Tdap (XMU=674)08/13/2022Zoster Recombinant (RZV,Shingles) (NAO=477) 04/21/2019,01/27/2019 Social History Tobacco UseTypesPacks/DayYears UsedDateSmoking Tobacco: Never AssessedSex and Gender InformationValueDate RecordedSex Assigned at MzdpsGjrm71/14/2022 3:27 PM EDTLegal HflAdkf9011/24/2013 2:26 PM EDTGender RkptiuweZadi08/14/2022 3:27 PM EDT Sexual OrientationChoose not to spkvlzna61/14/2022 3:27 PM EDT Last Filed Vital Signs Vital SignReadingTime TakenCommentsBlood Mcznjznj711/8409/29/2021 2:42 PM EDT Eduxn940409/29/2021 2:42 PM YGYJtsfwzaqukv75.1 ??C (97 ??F)09/29/2021 2:20 PM EDT Respiratory Qfkh131609/29/2021 2:42 PM EDTOxygen Kzsbkcessh61%09/29/2021 2:42 PM EDTInhaled Oxygen Concentration--Vndzbr47.6 kg (160 lb)09/29/2021 11:32 AM EDT Height--Body Mass Index-- Plan of Treatment Health MaintenanceDue DateLast DoneCommentsHIV Test1977Hepatitis C Hsngqvmo95/20/1980Hepatitis A (HAV) Vaccine (optional start 19+ years)1981 Cologuard (Stool DNA)2007FIT2007Pneumococcal Vaccine(s) (50+ yrs) (2 of 2 - PCV), 04/05/2006nnual Wellness Visit (G0439) 06/20/2018Hepatitis B (HBV) Vaccine (optional start 60+ years)2022 Dulmjjmaqyz38/01/2018COVID-19 Vaccine ( season)2025 07/17/2021, 06/27/2020, 05/30/2020Influenza Vaccine (#1)/11/2021, 03/20/2021, 03/10/2020, Additional history existsCRC Grrmvxlyf94/31/2027 Ualydzfivpn47Tetanus (Td or Tdap) Vinvyof56/, 03/09/1985, 03/10/1984, Additional history existsRSV vaccine (adult) (1 - 1-dose 75+ series)2037Shingles (RZV) UbkbznkQlfcqdnfk80/03/2019, 01/27/2019Tdap CmjejyzQtytaudad53/27/2023 Insurance
--- OUTSIDE RECORDS SUMMARY | 2025-03-30 06:43 | XMS_ITS | Patient Health Record ---
Author Organization [facility] Address [address] [place] [address] Care Team Providers Care Sterile Processing Manager Name Role Phone Anders Sandoval Unavailable [phone] Luz Marina Thompson Unavailable Allergies No Known Allergies Results Component Value Reference Range Notes SCC- HAND 3 VIEW RIGHT [id number] Reviewed date:08/20/2024 03:17:56 PM Interpretation: Performing Lab: Notes/Report: SCC- HAND 3 VIEW RIGHT [id number] Reviewed date:09/28/2024 01:45:24 PM Interpretation: Performing Lab: Notes/Report: Reason For Referral No Information Medications Medication SIG (Take, Route, Frequency, Duration) Notes Start Date End Date Status Myrbetriq ActiverisperiDONEActivecitalopramActiveoxyBUTYninActiveamLODIPineActive simvastatinActivedilTIAZemActiveSennaActiveDermacinrx VentrixylActiveZinc with Vitamin CActiveFeroSulActiveSodium ChlorideActivedivalproex sodiumActive lisinoprilActivelactuloseActiveMetamucilActivemeloxicamActiveAcidophilusActive Social History AUDIT-C (Standard) Question Answer Notes Did you have a drink containing alcohol in the p ast year? No Jenqvu0TjvpuhxnpnzgrpEvxzkxrt Problems Problem Type SNOMED Code ICD Code Onset Dates Problem Status W/U Status Risk Notes Problem [id number] Nondisplaced fra cture of middle phalanx of right ring finger, subsequent encounter for fracture with routine healing (S62.654D) Activeconfirmed Vital Signs Height 5'2 in 10/26/2024 Uugers626 lbs10/26/2024BMI29.26010/26/2024 Encounters Encounter Location Date Provider Diagnosis [facility] [address] [place] [address] [place] [address] 08/17/2024 Anders Sandoval Hand pain, right M79.641 and Closed nondisplaced fracture of middle phalanx of right ring finger, initial encounter S62.654A [facility] [address] [place] [address] 09/14/2024 Luz Marina [place] Nondisplaced fracture of middle phalanx of right ring finger, subsequent encounter for fracture with routine healing S62.654D [facility] [address] [place] [address] 10/26/2024 Anders Sandvoal Nondisplaced fracture of middle phalanx of right [...] Order Date SCC- HAND 3 VIEW RIGHT [id number] 10/26/2024 Insurance Providers Payer Name Payer Address Payer Phone Subscriber Number Group Number Insured Name Patient Relationship to Insured Coverage Start Date Coverage End [place] [address] [place] [address] [id number] Nahun VALLES - patient is the insuredNdio Dept of MedicaidP [address] [place] [id number], THOMASSelf - patient is the insured Medical (General) History Medical History History ICD Code Kidney trouble
--- OUTSIDE RECORDS SUMMARY | 2025-03-30 06:43 | XMS_ITS | Clinical Summary ---
Author Organization [facility] Address [address] [facility], [address] [place] [address] Care Team Providers Care Lab Asst Name Role Phone Unavailable Primary Care Provider [...] Last Filed Vital Signs Vital SignReadingTime TakenCommentsBlood Nxxppljo770/8212/10/2011 1:59 PM EDT Pulse--Jsthdpazybi90.9 ??C (98.5 ??F)12/10/2011 1:59 PM EDTRespiratory Rate-- Oxygen Saturation--Inhaled Oxygen Concentration--Zqzwwg42.9 kg (156 lb 4.8 oz) 12/10/2011 1:59 PM EDTHeight--Body Mass Index-- Plan of Treatment Not on file
--- OUTSIDE RECORDS SUMMARY | 2025-03-30 06:43 | XMS_ITS | Clinical Summary ---
Author Organization [employer] tem Address [id number] [address] [place] [address] Care Team Providers Care Shank Threader Name Role Phone Jey Molina REPORT DEVELOPER-PIECE MEAT TRIMMER Primary Care Provider + Allergies No known [...] DateBenign hypertension with stage 3a chronic kidney qaiixpq1801/25/2025Obsessive compulsive qeyfymnx46/06/2023ggressive behavior 09/24/20195563Ssanoi95/29/7818Ashbepeujzx23/12/2020Elevated vitamin B12 level 06/30/2019Low gganfwin43/11/2020Chronic bxamnuhegtar40/16/2018Cerumen debris on tympanic membrane of both ears06/03/2017Mixed vwizymaqcmqlzg25/17/2017Impulse control iddqurov84/24/2017Intellectual cucgibipkp38/24/2017Hypertension 11/05/2016Spina gdyzxn5111/05/2016Spastic neurogenic kjnupye0611/05/2016 Overview (10/16/2022): History of spina bifida. Managed [...] discussion with his sister who is the ejqgi-md-ekyvnzpj along with his primary caregiver. I do [...] DateResolved DateRectum injury with open wound into kxqvjs95Psychogenic Encounters * This document contains information received from the source organization and may not represent a complete record from that organization. DateTypeDepartmentCare XsjyWncctsakgdj55/22/2025 11:00 AM EDTSupport Visit [facility] [address] [place] [address] [place] [address] Mandi Fuentes PA Suprapubic catheter ([facility]) (Primary Dx)03/10/2025Refill [facility] [address] [place] [address] Selma Blanc CMA Anxiety due to invasive procedure; Impulse control disorder; Intellectual jwpxfcbuoe08/16/2025Telephone [facility] [address] [place] [address] Selma Blanc CMA 03/02/2025Refill [facility] [address] [place] [address] Lyla Cast APRN-PIECE MEAT TRIMMER Osteoarthritis of multiple joints, unspecified osteoarthritis type02/08/2025 Results Follow-Up [facility] [address] [place] [address] [place] [address] [address] Dominique Hoskins APRN-SHON Urine Wmlvzcn0702/02/2025 11:00 AM EDTSupport Visit [facility] [address] [place] [address] [place] [address] Vincenzo Palacios MD Spastic neurogenic bladder (Primary Dx); [facility]rapub[facility] catheter [place] Urinary tract infection associated with cystostomy catheter, xdeteod2101/26/2025 Refill [facility] [address] [place] [address] Lyla Cast APRN-PIECE MEAT TRIMMER Pressure ulcer of right foot, stage 10:45 AM EDTOffice Visit [facility] [address] [address] Paul Shipman DO Mixed hyperlipidemia (Primary Dx); Benign hypertension with stage 3a chronic kidney disease ([facility]); Primary hypertension; Intellectual disability; Impulse control disorder; Aggressive behavior; Suprapubic catheter ([facility] Spina bifida without hydrocephalus, unspecified spinal region ([facility]); Yswvsxjdsa37/08/4981Japldq48/02/4899Hxghks49/11/2025 11:00 AM EDTSupport Visit [facility] [address] [place] [address] Imer Luna MD Suprapubic catheter ([facility]) (Primary Dx)from Last 3 Months Immunizations ImmunizationAdministration DatesNext DueCOVID-19, mRNA, LNP-S, PF, 30mcg/0.3mL Dose06/27/2020,05/30/2020DTaP06/20/2011H1N1 Inj04/27/2009Influenza (IM) Preservative Free04/03/2024Influenza, Injectable, quadrivalent (PF)03/22/2023, 03/26/2022,03/20/2021,03/10/2020,03/03/2019,03/06/2018,03/01/2017Influenza, Vzbsbddrlge88/13/3521OVO1910/29/1983Pneumococcal Bnfpdcntbsjsfi68/29/2013, 04/05/2006Td (adult), 2 Lf tetanus toxoid, preservative free, yicsuait53/21/1985 ,03/10/1984,10/29/1983Tdap07/13/1994Zoster Live04/21/2019,01/27/2019Zoster Vaccine Vdqaftsiuso90/03/2019,01/27/2019 Family History Medical HistoryRelationNameCommentsHeart failureFatherBipolar disorderMother Heart diseaseMotherHyperlipidemiaMotherHypertensionMotherParkinsonismMother HyperlipidemiaSisterHypertensionSisterRelationNameStatusCommentsFatherDeceased MotherAliveSisterAlive Social History Tobacco UseTypesPacks/DayYears UsedDateSmoking Tobacco: NeverSmokeless Tobacco: Never Tobacco Cessation:Counseling Given: No Alcohol UseStandard Drinks/WeekCommentsNo0 (1 standard drink = 0.6 oz pure alcohol)[facility] UtilitiesAnswerDate RecordedIn the past 12 months has [...] times a week01/25/2025How often do you attend pentecostalism or adventist services?1 to 4 times per year01/25/2025Do you belong to any clubs or organizations such as pentecostalism groups, unions, fraternal or athletic groups, or school groups?Yes01/25/2025How often do you attend meetings of the clubs or organizations you belong to?More than 4 times per year01/25/2025 Are you , , , , never , or living with a partner?Never bgapvrg8201/25/2025Overall Financial Resource Strain (CARDIA)Answer Date RecordedHow hard is it for you to pay for the very basics like food, housing, medical care, and heating?Not hard at all01/25/2025PHQ-2AnswerDate RecordedTotal Jipiw945Finbear [facility] hospital [place] of Occupational Health - Occupational Stress QuestionnaireAnswerDate [...] part of a household?No01/25/2025hildcareAnswerDate RecordedDo problems getting children's court magistrate make it difficult for you to work [...] InformationValueDate RecordedSex Assigned at BirthNot on fileLegal YhtGarn0812/23/2014 11:23 AM EDTGender IdentityNot on fileSexual OrientationNot on file Last Filed Vital Signs Vital SignReadingTime TakenCommentsBlood Msmltalo409/72001/25/2025 10:40 AM EDT Syugq074801/25/2025 10:40 AM TGMBlnwjwwaoom35.3 ??C (97.3 ??F)01/25/2025 10:40 AM EDTRespiratory Xmxt461301/25/2025 10:40 AM EDTOxygen Afrylcwzgb30%01/25/2025 10:40 AM EDTInhaled Oxygen Concentration--Neulxr19.9 kg (163 lb)01/25/2025 10:40 AM FPOWugidm650.5 cm (5' 2.01 )01/25/2025 10:40 AM EDTBody Mass Index29.81 01/25/2025 10:40 AM EDT Plan of Treatment DateTypeDepartmentCare Team (Latest Contact Info)Edxtaajxhfl05/12/2025 9:00 AM ESTSupport Visit [facility] [address] [place] [place] [address] [place] [address] Mandi Fuentes I, UBALDO [address] [place] [address] 06/03/2025 3:00 PM ESTOffice Visit [facility] [address] [place] [address] Jey Molina, REPORT DEVELOPER-PIECE MEAT TRIMMER [address] [facility] , [address] [place], [place] [id number] Health MaintenanceDue DateLast DoneCommentsAdult BMI Follow Up Plan1980 COVID-19 Vaccine ( season), 06/27/2020, 05/30/2020Influenza Xdymzhy69, 03/22/2023, 03/26/2022, Additional history existsAdult BMI Uzefyfjey52/12/2024Depression Dpifzblgw49/12/2024Tobacco Dhjexuhqs33/olonoscopy , 02/15/2022, 12/17/2016RSV ( or age 60+ yrs) (1 - 1-dose 75+ series)2037Zoster (Shingles) AmjiehxZfqrytuji97/03/2019, 04/21/2019, 01/27/2019, Additional history existsDTaP,Tdap and Td Vaccines Zmgtbdjvlqji80/27/2023, 06/20/2011, 07/13/1994, Additional history exists Medical Devices Not on file Procedures Procedure NamePriorityDate/TimeAssociated DiagnosisCommentsURINE CULTURERoutine 02/02/2025 4:57 PM EDT Spastic neurogenic bladder Suprapubic catheter (CMS-HCC) Urinary tract infection associated with cystostomy catheter, sequela IHJXMPNHOYR69/29/2022 7:14 AM EDT from Last 3 Months or Most Recently Relevant to Health Maintenance Results * (ABNORMAL) Urine Culture (02/02/2025 4:57 PM EDT)ComponentValueRef RangeTest MethodAnalysis TimePerformed AtPathologist SignatureCULTURE RESULTS>100,000 CFU/mL Extended Spectrum Beta Lactamase Escherichia coli(A)02/11/2025 7:47 AM [facility] OSXTNVW39,000-100,000 CFU/mL Escherichia coli(A)02/11/2025 7:47 AM [facility] Comment:variantCULTURE JDFBXTF65,000-50,000 CFU/mL Enterococcus species(A) 02/11/2025 7:47 AM [facility]ORYComment: Ampicillin or Amoxicillin is the drug of choice for uncomplicated cystitis caused by enterococci. Cephalosporins are inappropriate. CULTURE OGLBFCE31,000-50,000 CFU/mL Proteus mirabilis(A)02/11/2025 7:47 AM EDT [facility]ORATORYSpecimen (Source)Anatomical Location / LateralityCollection Method / VolumeCollection TimeReceived TimeUrine (Urine, Indwelling Catheter)02/02/2025 4:57 PM EDT02/02/2025 4:57 PM EDT Narrative [facility] - 02/11/2025 7:47 AM EDT Dominique [...] Result - FinalPerforming OrganizationAddress City/State/ZIP CodePhone Number [facility] [address] [place] [address], * Colonoscopy (02/15/2022 7:14 AM EDT)Specimen (Source)Anatomical Location / LateralityCollection Method / VolumeCollection TimeReceived Time02/15/2022 7:14 AM EDT Narrative [facility] - 02/15/2022 7:55 AM EDT [facility] Patient Name: Igor Pereira ?? Procedure Date No Time: 02/15/2022 ?? CSN : [id number] Date of : 1960 Admit Type: Outpatient Age: 61 Room: [facility] Gender: Male Note Status: Finalized Attending MD: Imer Box DO Procedure: ? Colonoscopy Indications: ? Screening for colorectal malignant neoplasm, High risk ? colon cancer surveillance: Personal history of colonic ? polyps Providers: ? Imer Box DO Referring MD: ?Imer Box DO Medicines: ? Propofol per Anesthesia Complications: ? No immediate complications. Procedure: ? After I obtained informed consent, the scope was ? passed under direct vision. Throughout the procedure, ? the patient's blood pressure, pulse, and oxygen ? saturations were monitored continuously. The [facility] ? PCF-H190DL # [id number] PEDIATRIC COLONOSCOPE was ? introduced through the [...] malignant neoplasm of colon CPT copyright 2020 [employer]. All rights reserved. The codes documented in this report are preliminary and upon real estate acquisition analyst review may be revised to meet current compliance requirements. DO Imer Davalos DO 02/15/2022 7:55:07 AM Number of Addenda: 0 Note Initiated On: 02/15/2022 7:14 AM Procedure Note Imer Box DO - 02/15/2022 [facility] Patient Name: Igor Pereira Procedure Date No Time: 02/15/2022 CSN : [id number] Date of : 1960 Admit Type: Outpatient Age: 61 Room: [place] [address] Gender: Male Note Status: Finalized Attending MD: [...] pulse, and oxygen saturations were monitored continuously. [facility] PCF-H[facility]DL # [id number] PEDIATRIC COLONOSCOPE was introduced through the anus [...] malignant neoplasm of colon CPT copyright 2020 [employer]. All rights reserved. The codes documented in this report are preliminary and upon real estate acquisition analyst reviewmay be revised to meet current compliance requirements. DO Imer Davalos DO 02/15/2022 7:55:07 AM Number of Addenda: 0 Note Initiated On: 02/15/2022 7:14 AM Authorizing ProviderResult TypeResult StatusMicvickie BALDERAS PROCEDURE ORDERABLESFinal ResultPerforming OrganizationAddressCity/State/ZIP CodePhone Number [facility] from Last 3 Months or Most Recently Relevant to Health Maintenance Insurance Care Teams Team MemberRelationshipSpecialtyStart DateEnd Date Jey Molina, REPORT DEVELOPER-PIECE MEAT TRIMMER [address] [place] [address] PCP - GeneralInternal Xslqwndj70/16/25
--- OUTSIDE RECORDS SUMMARY | 2025-03-30 06:44 | XMS_ITS | CCD ---
Author Organization [facility] Care Team Providers Care Ticket Taker [place] Name Role Phone Unavailable Primary Care Provider [...] CHAPIN Admitting Unavailable CAST, CHAPIN Attending Unavailable ACST, CHAPIN Primary Care Unavailable CAST, CHAPIN Consulting Unavailable CAST, CHAPIN Admitting Unavailable CAST, CHAPIN Attending Unavailable CAST, CHAPIN Primary Care Unavailable CAST, CHAPIN Consulting Unavailable Unavailable Primary Care Provider Unavailabl e PROVIDER, UNKNOWN Attending Unavailable PROVIDER, UNKNOWN Admitting Unavailable Ricky Quintana MD Primary Care Provider Chapin Gilbert Unavailable Segun SOAP TENDER-Chapin MENENDEZ Primary Care Provid er CHAPIN CAST Referring Unavailable CHAPIN CAST Primary Care Unavailable BONNIE CASTERIE J Referring Unavailable BONNIE CASTERIE J Primary Care Unavailable Cast TABLE KEEPER-CChapin Primary Care Provider Jaky Adames APRN Attending Provider Chapin Cast Primary Care Unavailable Jaky Adames Attending Unavailable Jaky Adames Admitting Unavailable Cast SOAP TENDER-Chapin MENENDEZ Primary Care Provid er Ricky Quintana MD Primary Care Provider Paul Block MD Primary Care Provider [phone] Segun SOAP TENDER-SENIOR RECEPTIONIST, Chapin J Primary Care Provid er Paul Block DO Primary Care Provider CELIO SORENSEN Attending Unavailable CAST, CHAPIN J Referring Unavailable PAUL BLOCK Primary Care Unavailable CELIO SORENSEN Attending Unavailable CATS, CHAPIN J Referring Unavailable CAST, CHAPIN J Primary Care Unavailable CELIO SORENSEN Attending Unavailable CAST, CHAPIN J Referring Unavailable CAST, CHAPIN J Primary Care Unavailable CELIO SORENSEN Attending Unavailable CAST, CHAPIN J Referring Unavailable CAST, CHAPIN J Primary Care Unavailable Tracy SOAP TENDER-SENIOR RECEPTIONISTLilia Primary Care Provider ANNETTE MILLS Attending Unavailable CAST, CHAPIN J Referring Unavailable CAST, CHAPIN J Primary Care Unavailable CAST, CHAPIN J Attending Unavailable CAST, CHAPIN J Referring Unavailable CAST, CHAPIN J Primary Care Unavailable CAST, CHAPIN J Referring Unavailable CAST, CHAPIN J Primary Care Unavailable CAST, CHAPIN J Attending Unavailable LISAGISELA PICKENS Attending Unavailable CAST, CHAPIN J Referring Unavailable CAST, CHAPIN J Primary Care Unavailable GISELA PALACIOS Attending Unavailable CAST, CHAPIN J Referring Unavailable CAST, CHAPIN J Primary Care Unavailable ANNETTE MILLS Attending Unavailable CAST, CHAPIN J Referring Unavailable CAST, CHAPIN J Primary Care Unavailable GISELA PALACIOS Attending Unavailable CAST, CHAPIN J Referring Unavailable CAST, CHAPIN J Primary Care Unavailable GISELA PALACIOS Attending Unavailable CAST, CHAPIN J Referring Unavailable CAST, CHAPIN J Primary Care Unavailable GISELA PALACIOS Attending Unavailable CAST, CHAPIN J Referring Unavailable CAST, CHAPIN J Primary Care Unavailable GISELA PALACIOS Attending Unavailable CAST, CHAPIN J Referring Unavailable CAST, CHAPIN J Primary Care Unavailable GISELA PALACIOS Attending Unavailable CAST, CHAPIN J Referring Unavailable CAST, CHAPIN J Primary Care Unavailable ANNETTE MILLS Attending Unavailable CHAPIN CAST Referring Unavailable FURLONG, PAUL Andrade Primary Care Unavailable FURLONG, PAUL Andrade Attending Unavailable FURLONG, PAUL Andrade Referring Unavailable FURLONG, PAUL G Primary Care Unavailable GISELA PALACIOS Attending Unavailable FURLONG, PAUL Andrade Referring Unavailable FURLONG, PAUL Andrade Primary Care Unavailable FATEMEH FUENTES I Attending Unavailable FURLONG, PAUL Andrade Referring Unavailable LILIA MOLINA Primary Care Unavailable Castteressa CARRERO, Chapin Unavailable Paul Block MD Primary Care Provider RUS, MARIA LUISA A Attending Unavailable RUSHER, MARIA [...] LUISA A Attending Unavailable Medications Current Medications MedicationDrug Class(es)DatesSig (Normalized)Sig (Original)acetaminophen 325 mg oral tablet (20 sources)Start: 12-27-2022 End: 21-00-6848zsrj 2 tablets by mouth every four hours as needed for pain acetaminophen (TYLENOL) 325 mg tablet TAKE 2 TABLETS (650MG) BY MOUTH EVERY 4 HOURS NEEDED FOR PAIN AND/OR TEMP (MAXIMUM LIMIT OF ACETAMINOPHEN FROM ALL SOURCES IS 4000 MG IN 24 HOURS) 60 tablet 11 08/10/2024 ActiveStart: 09-29-2021 End: 05-53-4617widc 1 tablet by mouth every six hours as needed for pain acetaminophen (TYLENOL) 500 MG tablet Take 1 Tablet by mouth every 6 hours as needed for Pain or Fever for up to 6 days. 24 Tablet 0 09/29/2021 10/05/2021 ActiveStart: 34-53-1582ivxu 2 tablets by mouth every six hours as needed for painAcetaminophen 325 mg Tablet Active 650 MG PO Q6H as needed for Pain August 03, 2019 12:00amStart: 89-39-5976dufw 650 mg by mouth every six hours Acetaminophen Active 650 MG PO Q6H August 03, 2019 12:00amacetaminophen (Tylenol) 325 MG tablet Take by mouth ActiveamLODIPine 2.5 mg oral tablet (20 sources)Dihydropyridine Calcium Channel BlockerStart: 16-31-5133Ysetfgzloe Active MG PO January 09, 2024 12:00amStart: 12-27-2022 End: 96-78-1170uuwd 1 tablet by mouth once dailyamLODIPine (NORVASC) 2.5 mg tablet TAKE 1 TABLET BY MOUTH ONCE EVERY DAY 30 tablet 5 12/16/2024 Active ascorbic acid 60 mg / beta carotene 5000 unt / copper sulfate 40 mg / dl-alpha tocopheryl acetate 30 unt / sodium selenite 0.04 mg / zinc oxide 40 mg oral tablet (6 sources)Vitamin Ctake 1 tablet by mouth once dailyMultiple Vitamins-Iron (Multivitamin Plus Iron Adult) TABS Take 1 Tablet by mouth daily. 0 Active bacitracin zinc 0.5 unt/mg topical ointment (20 sources)bacitracin 500 UNIT/GM ointment Apply topically in the morning and before bedtime. Activebacitracin 500 UNIT/GM ointment Apply topically 2 (two) times a day. Activebacitracin 0.4 unt/mg / neomycin 0.0035 mg/mg / polymyxin b 5 unt/mg topical ointment (20 sources)Aminoglycoside Antibacterial, Polymyxin-class AntibacterialStart: 73-70-0918KHPCNE ANTIBIOTIC 3.5mg-400 unit- 5,000 unit/gram ointment APPLY TOPICALLY TO SCRATCHES DAILY NEEDED (DATE, TIME, INITIAL, EFFECT) 28 g 11 01/04/2023 Activecarbamide peroxide 65 mg/ml otic solution (20 sources)carbamide peroxide (Debrox) 6.5 % otic solution 5 drops in the morning and 5 drops before bedtime. Activecarbamide peroxide (DEBROX/MURINE) 6.5 % otic solution 3 Drops at bedtime as needed. 0 Activecitalopram 40 mg oral tablet (20 sources)Serotonin Reuptake InhibitorStart: 95-25-9552loqa 1 tablet by mouth in the morningcitalopram (CeleXA) 40 mg tablet Indications: Other obsessive- compulsive disorders Take 1 tablet (40 mg total) by mouth in the morning. 30 tablet 11 12/14/2024 ActiveStart: 64-95-0774umry 1 tablet by mouth in the morningcitalopram (CeleXA) 40 mg tablet Indications: Other obsessive-compulsive disorders Take 1 tablet (40 mg total) by mouth in the morning. 31 tablet 11 12/20/2023 Activecitalopram (CeleXA) 20 MG tablet Take by mouth Activecitalopram (CeleXA) 40 MG tablet Take 20 mg by mouth ActiveDERMACERIN cream (20 sources)Start: 08-76-4586MVTUXBNOAQ cream APPLY TOPICALLY TO SITES ON BILATERAL FEET ONCE EVERY DAY (6AM) 106 g 11 12/27/2022 Activedextromethorphan hydrobromide 1.5 mg/ml oral solution (20 sources)Uncompetitive E-bzxwyk-B-aspartate Receptor Antagonist, Sigma-1 Agonisttake 7.5 mg by mouth every six hours as needed for coughdextromethorphan 7.5 MG/5ML syrup Take 7.5 mg by mouth every 6 (six) hours if needed for cough Smhzkv16 hr dilTIAZem hydrochloride 240 mg extended release oral capsule (20 sources)Calcium Channel BlockerStart: 08-03-2019 End: 51-04-0450xwqm 1 capsule by mouth once dailydilTIAZem CD (CARDIZEM CD) 240 mg 24 hr capsule TAKE 1 CAPSULE BY MOUTH ONCE EVERY DAY 30 capsule Activedocusate sodium 50 mg / sennosides, retirement 8.6 mg oral tablet (20 sources)Start: 12-27-2022 End: 93-57-0012ywyk 2 tablets by mouth once daily at bedtimeSENNA PLUS 8.6-50 mg TAKE 2 TABLETS (17.2-100MG) BY MOUTH EVERY NIGHT AT BEDTIME 60 tablet 11 2024 ActiveStart: 56-82-1128fkem 2 tablets by mouth once daily at bedtime Sennosides-Docusate Sodium (Senna With Docusate Sodium) 8.6-50 mg Tablet Active 2 TAB-CAP PO Daily at bedtime August 03, 2019 12:00amtake 8.6-50 mg by mouth in the morningsenna-docusate (Fatimah-Colace) 8.6-50 MG tablet Take 1 tablet by mouth in the morning. Activeferrous sulfate 325 mg oral tablet (20 sources)Start: 12-27-2022 End: 14-58-1873mpgi 1 tablet by mouth once daily at breakfastFeroSuL 325 mg (65 mg iron) tablet TAKE 1 TABLET BY MOUTH ONCE EVERY DAY WITH BREAKFAST 30 tablet 11 12/16/2024 ActiveStart: 41-26-8071vrbo 1 tablet by mouth once dailyFerrous Sulfate 325 mg (65 mg iron) Tablet Active 325 MG PO Daily August 03, 2019 12:00amguaiFENesin 20 mg/ml oral solution (20 sources)Start: 06-84-4015rxxm 10 mL by mouth every six hours as needed for coughCHEST CONGESTION RELIEF 100 mg/5 mL syrup TAKE 10 ML BY MOUTH EVERY 6 HOURS NEEDED FOR COUGH 473mL 11 12/27/2022 ActiveguaiFENesin (Robitussin) 100 MG/5ML liquid Take 200 mg by mouth as needed in the morning and 200 mgas needed at noon and 200 mg as needed in the evening for cough. Activesodium hypochlorite 2.5 mg/ml topical solution (3 sources)Start: 64-69-3318Epxiti Hypochlorite (Hysept) 0.25 % Solution Active 1 APPLIC TOPICAL Daily August 03, 2019 12:00amammonium lactate 120 mg/ml topical lotion (20 sources)ammonium lactate (Lac-Hydrin) 12 % lotion Apply topically if needed for dry skin Activeammonium lactate (AMLACTIN) 12 % cream Apply 1 Application topically as needed for dry skin. ActiveLactobacillus (20 sources)Lactobacillus (ACIDOPHILUS PO) Take by mouth ActiveLactobacillus (ACIDOPHILUS PO) Take by mouth. ActiveLactobacillus acidophilus (11 sources)Start: 16-56-1256myug 1 tablet by mouth once dailyLactobacillus Acidophilus (Acidophilus) Tablet,Chewable Active 1 TAB PO Daily August 03, 2019 12:00amtake 1 tablet by mouth three times dailyLactobacillus (ACIDOPHILUS) 100 MG CAPS Take 1 Tab by mouth 3 times daily. 0 Activelactobacillus acidophilus [id number] unt / pectin 10 mg oral capsule (20 sources)Start: 11-30-2023 End: 96-85-6007xbgq 1 capsule by mouth three times dailyacidophilus-pectin, citrus 100 million cell-10 mg capsule TAKE 1 CAPSULE BY MOUTH THREE TIMES DAILY (8AM,3PM,8PM) 93 capsule 11 12/01/2024 ActiveStart: 12-27-2022 End: 54-94-6617pncx 1 capsule by mouth three times dailyACIDOPHILUS-PECTIN 75 million cell -100 mg capsule TAKE 1 CAPSULE BY MOUTH THREE TIMES DAILY (8AM,3P M,8PM) 93 capsule 11 12/27/2022 11/30/2023 Discontinued (Duplicate Listing) lactulose 667 mg/ml oral solution (20 sources)Osmotic LaxativeStart: 05-09-2023 End: 24-00-3993cjio 15 mL by mouth twice dailylactulose (CHRONULAC) 10 gram/15 mL solution TAKE 15 ML (10GM) BY MOUTH TWICE DAILY 946 mL 10 05/11/2024 Active Start: 90-71-4017fvtu 10 g by mouth twice dailyLactulose 10 gram/15 mL (15 mL) Solution Active 10 GM PO Twice daily August 03, 2019 12:00am End: 64-94-6411jwit 20 g by mouth in the morning, then take 20 g by mouth in the evening, then take 20 g by mouth at bedtimelactulose (Chronulac) 10 GM/15ML solution Take 20 g by mouth in the morning and 20 g in the eveningand 20 g before bedtime. ActiveLACTULOSE ENCEPHALOPATHY PO (20 sources)LACTULOSE ENCEPHALOPATHY PO Take by mouth ActiveLACTULOSE ENCEPHALOPATHY PO Take by mouth. Activelanolin 0.157 mg/mg / menthol 0.0044 mg/mg / petrolatum 0.24 mg/mg / zinc oxide 0.206 mg/mg topicalointment (20 sources)Menthol-Zinc Oxide (Calmoseptine) 0.44-20.6 % ointment Apply topically Activelisinopril 30 mg oral tablet (20 sources)Angiotensin Converting Enzyme InhibitorStart: 08-03-2019 End: 46-48-6557ngzq 1 tablet by mouth once dailylisinopriL (PRINIVIL,ZESTRIL) 30 mg tablet TAKE 1 TABLET BY MOUTH ONCE EVERY DAY 30 tablet 11 12/16/2024 Active LORazepam 2 mg oral tablet (20 sources)BenzodiazepineStart: 87-80-6357uqke 1 tablet by mouth every hour as neededLORazepam (ATIVAN) 2 mg tablet Indications: Anxiety due to invasive procedure , Impulse control disorder , Intellectual disability TAKE 1 TABLET BY MOUTH 1 HR PRIOR TO PHYSICIAN APPTS, PROCEDURES, LAB DRAWS OR DIAGNOSTIC TESTING NEEDED 10 tablet 1 03/10/2025 ActiveStart: 05-25-2024 End: 31-02-9318lrvv 1 tablet by mouth every hour as neededLORazepam (ATIVAN) 2 mg tablet Indications: Anxiety due to invasive procedure , Impulse control diso rder , Intellectual disability TAKE 1 TABLET BY MOUTH 1 HR PRIOR TO PHYSICIAN APPTS, PROCEDURES, LAB DRAWS OR DIAGNOSTIC TESTING NEEDED 10 tablet 1 05/25/2024 03/10/2025 Discontinued (Reorder)Start: 07-08-2023 End: 16-62-0711yosq 1 tablet by mouth every hour as neededLORazepam (ATIVAN) 2 mg tablet Indications: Anxiety due to invasive procedure , Impulse control diso rder , Intellectual disability TAKE 1 TABLET BY MOUTH 1 HR PRIOR TO PHYSICIAN APPTS, PROCEDURES, LAB DRAWS OR DIAGNOSTIC TESTING NEEDED 10 tablet 1 07/08/2023 05/22/2024 Discontinued (Reorder)Start: 12-27-2022 End: 27-36-6489hfel 1 tablet by mouth every hour as neededLORazepam (ATIVAN) 2 mg tablet Indications: Anxiety due to invasive procedure , Impulse control diso rder , Intellectual disability TAKE 1 TABLET BY MOUTH 1 HR PRIOR TO PHYSICIAN APPTS, PROCEDURES, LAB DRAWS OR DIAGNOSTIC TESTING NEEDED 10 tablet 1 12/27/2022 07/05/2023 Discontinued (Reorder)Start: 88-07-7791lerq 1 tablet by mouth once daily as neededLorazepam 2 mg Tablet Active 2 MG PO Daily as needed for Agitation August 03, 2019 12:00am 1 TAB PRIOR TO DOCTOR APPOINTMENT meloxicam 7.5 mg oral tablet (20 sources)Nonsteroidal Anti-inflammatory DrugStart: 13-53-5638Newefssoi Active MG PO January 09, 2024 12:00amStart: 03-22-2023 End: 84-31-0598imze 1 tablet by mouth once daily as needed for painmeloxicam (MOBIC) 7.5 mg tablet Indications: Osteoarthritis of multiple joints, unspecified osteoarthritis type Take 1 tablet (7.5 mg total) by mouth daily as needed for pain. 31 tablet 5 03/02/2025 Activemiconazole nitrate 0.02 mg/mg topical powder (20 sources)Azole Antifungalmiconazole (Micotin) 2 % powder Apply topically if needed for itching ActiveMiconazole Nitrate 2 % AERO Apply 1 Applicator externally daily. 0 Tpaetx26 hr mirabegron 50 mg extended release oral tablet (20 sources)beta3-Adrenergic AgonistStart: 08-03-2019 End: 42-40-1407ielm 1 tablet by mouth once dailyMYRBETRIQ 50 mg tablet extended release 24 hr Indications: Spastic neurogenic bladder TAKE 1 TABLETBY MOUTH ONCE EVERY DAY 31 tablet 11 12/09/2024 ActiveMirabegron (MYRBETRIQ PO) Take by mouth ActiveMirabegron (MYRBETRIQ PO) Take by mouth. ActiveMultiple Vitamin (multivitamin) tablet (20 sources)take 1 tablet by mouth once dailyMultiple Vitamin (multivitamin) tablet Take 1 tablet by mouth Daily Activetake 1 tablet by mouth in the morning Multiple Vitamin (multivitamin) tablet Take 1 tablet by mouth in the morning. ActiveMultiple Vitamins-Minerals (TAB-A-XIOMARA MAXIMUM PO) (20 sources)Multiple Vitamins-Minerals (TAB-A-XIOMARA MAXIMUM PO) Take by mouth ActiveMultiple Vitamins-Minerals (TAB-A-XIOMARA MAXIMUM PO) Take by mouth. Active Ugambzlgnfsy-Svye-Ynnib Acid (Tab-A-Xiomara Multivitamin W-Iron) 18-400 mg-mcg tablet (3 sources)Start: 07-01-4614Xwhhemfwvtgk-Iron-Folic Acid (Tab-A-Xiomara Multivitamin W-Iron) 18-400 mg-mcg tablet Active TAB PO January 09, 2024 12:00amnirmatrelvir-ritonavir (PAXLOVID) tablets (2 sources)Start: 01-10-2024 End: 16-66-2159dfgu 2 tablets by mouth in the morningnirmatrelvir-ritonavir (PAXLOVID) tablets Indications: COVID-19 Take 2 tablets by mouth in the morning and 2 tablets before bedtime. Do all this for 5 days. HOLD SIMVASTATIN WHILE TAKING THIS MEDICATION. 20 tablet 01/10/2024 01/10/2024 Discontinued (Reorder) Start: 01-10-2024 End: 02-64-7286xtsj 2 tablets by mouth in the morningnirmatrelvir-ritonavir (PAXLOVID) tablets Indications: COVID-19 Take 2 tablets by mouth in the morning and 2 tablets before bedtime. Do all this for 5 days. HOLD SIMVASTATIN WHILE TAKING THIS MEDICATION. 20 tablet 01/10/2024 01/15/2024 Activeomega-3 acid ethyl esters (retirement) 1000 mg oral capsule (20 sources)Start: 56-97-5071ynch 2 capsules by mouth twice dailyOmega-3 Acid Ethyl Esters 1 gram Capsule Active 2 CAP PO Twice daily August 03, 2019 12:00am take 1 capsule by mouth in the morningomega-3 acid ethyl esters (Lovaza) 1 g capsule Take 1 g by mouth in the morning and 1 g before bedtime. Activetake 1 g by mouth once ebsixllynw-3-btbz (LOVAZA) 1 GM capsule Take 1,000 mg by mouth daily. 0 Syrirr48 hr oxybutynin chloride 15 mg extended release oral tablet (20 sources)Cholinergic Muscarinic AntagonistStart: 08-03-2019 End: 73-01-2965vveh 1 tablet by mouth once dailyoxybutynin XL (DITROPAN XL) 15 mg 24 hr tablet TAKE 1 TABLET BY MOUTH ONCE EVERY DAY (8PM) 31 tablet 11 12/09/2024 Activetake 1 tablet by mouth every twenty-four hours in the morning oxybutynin XL (Ditropan-XL) 15 MG 24 hr tablet Take 15 mg by mouth in the morning. Do not crush, chew, or split. . Activepolyethylene glycol 3350 58166 mg powder for oral solution (20 sources)Osmotic LaxativeStart: 10-60-1770amdo 8 [oz_av] by mouth every other day as neededpolyethylene glycol (GLYCOLAX) 17 gram/dose powder MIX 17 GRAMS IN 8 OZ OF WATER AND TAKE BY MOUTH NEEDED FOR NO STOOL IN 2 DAYS (DATE, TIME, INITIAL, EFFECT) 238 g 11 12/27/2022 ActiveStart: 30-25-6283Shyzeleltqmu Glycol 3350 (Miralax) 17 gram/dose Powder Active 17 GM PO Q48H August 03, 2019 12:00am End: 26-33-4273xjovivadbthy glycol (GLYCOLAX) 17 GM/SCOOP powder Dissolve 17 g in 8 ounces of liquid and drink daily. 0 Activepsyllium 2500 mg oral wafer (20 sources)Start: 79-51-9344xiwyuylm husk, with sugar, (METAMUCIL FIBER THIN) 2.5 gram wafer TAKE 2 WAFERS BY MOUTH ONCE EVERY DAY WITH MORNING MEDS 60 each 03/30/2024 ActiveStart: 64-87-8928xzwifxjq husk, with sugar, (METAMUCIL FIBER THIN) 2 gram wafer Indications: Chronic constipation TAKE 2 WAFERS BY MOUTH ONCE EVERY DAY WITH MORNING MEDS 60 Wafer 05/09/2023 ActiveStart: 08-03-2019 take 2 g by mouth once dailyPsyllium Husk (With Sugar) (Metamucil Fiber Thin) 2 gram Wafer Active 2 WAFER PO Daily August 03, 2019 12:00ampsyllium (Metamucil) 28 % packet Take 1 packet by mouth in the morning and 1 packet before bedtime. Mix and drink with at least 8 ounces of water or juice. Active End: 76-20-7347Xzbholmp (METAMUCIL SUNRISE ORAL) Take by mouth. 0 09/20/2021 Discontinued (Discontinued by anotherHealth Care Provider)Psyllium (METAMUCIL SUNRISE ORAL) Take by mouth. 0 ActiveraNITIdine 150 mg oral tablet (20 sources)Histamine-2 Receptor Antagonist End: 73-92-3345pqlv 1 tablet by mouth in the morningraNITIdine (Zantac) 150 MG tablet Take 150 mg by mouth in the morning and 150 mg before bedtime. Active risperiDONE 2 mg oral tablet (20 sources)Atypical AntipsychoticStart: 23-57-7506gzat 1 tablet by mouth in the morning, then take 1 tablet by mouth at bedtimerisperiDONE (RisperDAL) 2 mg tablet Indications: Restlessness and agitation Take 1 tablet (2 mg total) by mouth in the morning and 1 tablet (2 mg total) before bedtime. 60 tablet 01/05/2025 ActiveStart: 61-26-4752Ziqutxaarxy Active MG PO January 09, 2024 12:00amStart: 43-36-2868jkrh 1 tablet by mouth in the morning, then take 1 tablet by mouth at bedtimerisperiDONE (RisperDAL) 2 mg tablet Indications: Restlessness and agitation Take 1 tablet (2 mg total) by mouth in the morning and 1 tablet (2 mg total) before bedtime. 60 tablet 12 02/19/2024 ActiveStart: 08-03-2019 End: 07-90-1924duhs 1 tablet by mouth twice dailyRisperidone 0.25 mg Tablet Discontinued 0.25 MG PO Twice daily August 03, 2019 12:00am January 09, 2024 12:31pmtake 1.5 mg by mouth in the morningrisperiDONE (RisperDAL) 2 MG tablet Take 1.5 mg by mouth in the morning and 1.5 mg before bedtime. Activetake 1 tablet by mouth twice dailyrisperiDONE (RISPERDAL) 0.5 MG tablet Take 0.5 mg by mouth 2 times daily. 0 Activesennosides, retirement 8.6 mg oral tablet (8 sources)take 2 tablets by mouth at bedtimesenna (SENOKOT) 8.6 MG TABS tablet Take 2 Tabs by mouth at bedtime. 0 Activesimvastatin 10 mg oral tablet (20 sources)HMG-CoA Reductase InhibitorStart: 08-03-2019 End: 85-65-5607taed 1 tablet by mouth once daily at bedtimesimvastatin (ZOCOR) 10 mg tablet TAKE 1 TABLET BY MOUTH EVERY NIGHT AT BEDTIME 30 tablet 11 12/17/19 25 ActiveSkin Protectants, Misc. (DERMACERIN EX) (20 sources)Skin Protectants, Misc. (DERMACERIN EX) Apply topically Activesodium chloride 0.154 meq/ml irrigation solution (20 sources)Start: 71-90-3332zcomcr chloride, bottle, (NS) 0.9 % irrigation CLEANSE RIGHT FOOT & APPLY MESALT DRESSING ONCE EVERY DAY AFTER SHOWERS (6AM) 500 mL 11 12/27/2022 Activesodium phosphate, dibasic 59.3 mg/ml / sodium phosphate, monobasic 161 mg/ml enema (20 sources)Start: 12-27-2022 End: 91-36-8578XAMZF DISPOSABLE 19-7 gram/118 mL enema INSERT 1 SUPPOSITORY RECTALLY NEEDED IF NO BOWEL MOVEMENT AFTER 3 DAYS (DATE, TIME, INITIAL, EFFECT) 266 mL 11 01/06/2024 Activesodium phosphate (Fleet) 3.5-9.5 GM/59ML enema Insert into the rectum MflmjoTJU-O-RDPX MULTIVITAMIN W-IRON 18-400 mg-mcg tablet (20 sources)Start: 73-27-1759tgda 1 tablet by mouth once ybzmmEMQ-R-QVHN MULTIVITAMIN W-IRON 18-400 mg-mcg tablet Indications: Chronic constipation TAKE 1 TABLETBY MOUTH ONCE EVERY DAY 30 tablet 11 12/16/2024 ActiveStart: 12-31-2023 End: 46-84-7419almx 1 tablet by mouth once wipsmSDF-O-MNWC MULTIVITAMIN W-IRON 18-400 mg-mcg tablet Indications: Chronic constipation take 1 tabletby mouth once every day 31 tablet 11 12/31/2023 12/16/2024 DiscontinuedStart: 12-31-2023 take 1 tablet by mouth once bquykHRB-F-LYSQ MULTIVITAMIN W-IRON 18-400 mg-mcg tablet Indications: Chronic constipation take 1 tabletby mouth once every day 31 tablet 11 12/31/2023 ActiveStart: 12-27-2022 End: 16-43-3214kndu 1 tablet by mouth once fwkezYEY-I-NBSO MULTIVITAMIN W-IRON 18-400 mg-mcg tablet Indications: Chronic constipation TAKE 1 TABLETBY MOUTH ONCE EVERY DAY 31 tablet 11 12/27/2022 12/31/2023 DiscontinuedStart: 12-27-2022 take 1 tablet by mouth once zribzNHC-O-TSIQ MULTIVITAMIN W-IRON 18-400 mg-mcg tablet Indications: Chronic constipation TAKE 1 TABLETBY MOUTH ONCE EVERY DAY 31 tablet 11 12/27/2022 Fxhlny02 hr divalproex sodium 500 mg extended release oral tablet (20 sources)Mood Stabilizer, Anti-epileptic AgentStart: 07-17-2024 End: 95-50-0110hduw 2 tablets by mouth once dailydivalproex (DEPAKOTE ER) 500 mg 24 hr tablet Indications: Impulse control disorder Take 2 tablets (1,000 mg total) by mouth nightly. 62 tablet 11 09/17/2024 ActiveStart: 63-73-3796cuml 1 tablet by mouth every twenty-four hoursDivalproex 250 mg tablet extended release 24 hr Active MG PO January 09, 2024 12:00amStart: 17-19-9311Lnseeatjci Active MG PO January 09, 2024 12:00amStart: 01-65-7122xjml 3 tablets by mouth once dailydivalproex (DEPAKOTE ER) 250 mg 24 hr tablet Indications: Impulse control disorder Take 3 tablets (750 mg total) by mouth nightly. 93 tablet 11 12/20/2023 ActiveStart: 29-12-3399dmzp 2 tablets by mouth once dailydivalproex (DEPAKOTE ER) 250 mg 24 hr tablet Take 2 tablets (500 mg total) by mouth nightly. 60 tabl et 11 04/04/2023 Activetake 1 tablet by mouth once dailydivalproex (Depakote ER) 250 MG 24 hr tablet Take 250 mg by mouth Daily Do not crush, chew, or split. Activewater 1000 mg/ml irrigation solution (20 sources)Start: 50-01-7532vkvtalz water irrigation Indications: Suprapubic catheter ([facility]) USE 30 CC'S TO IRRIGATE KLEIN CATHETER ONCE WEEKLY;USE 30 CC'S TO IRRIGATE KLEIN CATHETER NEEDED (IF NOT USING SOD CHLORIDE) 500mL 11 12/27/2022 ActiveWater For Irrigation, Sterile ([place] Sterile Water) solution Irrigate with as directed ActiveZinc (7 sources)Start: 18-99-0198hzmx 1 tablet by mouth once dailyZinc 50 mg Tablet Active 50 MG PO Daily August 03, 2019 12:00amStart: 31-08-7268lcdo 50 mg by mouth once dailyZinc Active 50 MG PO Daily August 03, 2019 12:00amtake 1 tablet by mouth once dailyZinc 50 MG TABS Take 1 Tablet by mouth daily. 0 Activezinc gluconate 50 mg oral tablet (20 sources)Start: 02-27-2023 End: 62-41-6722dsrj 1 tablet by mouth in the morningzinc gluconate 50 mg tablet Indications: Pressure ulcer of right foot, stage 1 Take 1 tablet (50 mgtotal) by mouth in the morning. 31 tablet 11 01/26/2025 Active Completed/Discontinued Medications MedicationDrug Class(es)DatesSig (Normalized)Sig (Original)amoxicillin 500 mg oral capsule (3 sources)Penicillin-class Antibacterial End: 81-28-3410swyg 1 capsule by mouth once dailyamoxicillin (AMOXIL) 500 MG capsule Take 500 mg by mouth daily. 0 09/20/2021 Discontinued (Discontinued by another Health Care Provider)cephalexin 500 mg oral capsule (3 sources)Cephalosporin AntibacterialStart: 08-03-2019 End: 03-10-2821hqzp 2 capsules by mouth twice dailyCephalexin (Keflex) 500 mg capsule Discontinued 1000 MG PO Twice daily 28 7 August 03, 2019 12:00am August 03, 2024 10:06amchlorhexidine gluconate 1.2 mg/ml mouthwash (2 sources)Start: 01-07-2014 End: 41-52-2738zajb 15 mL by mouth twice dailychlorhexidine (PERIDEX) 0.12 % oral solution Take 15 mL by mouth 2 times daily for 15 days. 1 Bottle 3 01/07/2014 09/20/2021 Discontinued (Discontinued by another Health Care Provider)docosahexaenoic acid 120 mg / eicosapentaenoic acid 180 mg oral capsule (3 sources) End: 45-18-0920kszy 2 capsules by mouth twice dailyOmega-3 1000 MG CAPS Take 2 Caps by mouth 2 times daily. 0 09/20/2021 Discontinued (Discontinued byanother Health Care Provider)hydrocortisone 25 mg/ml topical cream (20 sources)CorticosteroidStart: 12-27-2022 End: 57-05-5205SAQEIMJCOD-HC 2.5 % rectal cream APPLY TO RECTAL AREA 2 TIMES DAILY NEEDED FOR HEMORRHOIDS UNTILRESOLVED (DATE, TIME, INITIAL, EFFECT) 30 g 12/27/2022 01/25/2025 Discontinued (Therapy completed)hydrocortisone (Proctozone-HC) 2.5 % rectal cream Insert into the rectum in the morning and before bedtime. Activementhol 0.0044 mg/mg / zinc oxide 0.206 mg/mg topical ointment (20 sources)Start: 12-27-2022 End: 53-14-8230LAAPBTUDKPFD 0.44-20.6 % ointment APPLY TOPICALLY TO BUTTOCK TWICE DAILY;APPLY TOPICALLY TO BUTTOCKAS NEEDED 113 g 12/27/2022 01/25/2025 Discontinued (Therapy completed)Start: 87-66-6345Dzizter-Zinc Oxide (Calmoseptine) 0.44-20.6 % Ointment Active 1 APPLIC TOPICAL Twice daily August 03, 2019 12:00amMultiple Vitamins-Minerals (COMPLETE MULTIVITAMIN/MINERAL) LIQD (3 sources) End: 78-31-5852cafk 1 tablet by mouth once dailyMultiple Vitamins-Minerals (COMPLETE MULTIVITAMIN/MINERAL) LIQD Take 1 Tab by mouth daily. 0 09/20/2021 Discontinued (Discontinued by another Health Care Provider)take 1 tablet by mouth once dailyMultiple Vitamins-Minerals (COMPLETE MULTIVITAMIN/MINERAL) LIQD Take 1 Tab by mouth daily. 0 ActiveMultivitamin With Iron (Daily Vites/Iron) Tablet (3 sources)Start: 08-03-2019 End: 86-11-5869rgva 1 tablet by mouth once dailyMultivitamin With Iron (Daily Vites/Iron) Tablet Discontinued 1 TAB PO Daily August 03, 2019 12:00am January 09, 2024 12:30pmmultivitamin with iron (TAB-A-XIOMARA/IRON ORAL) (20 sources) End: 00-23-6059nwbucvnfanhv with iron (TAB-A-XIOMARA/IRON ORAL) See Admin Instructions. 12/16/2024 Discontinued (Therapy completed)multivitamin with iron (TAB-A-XIOMARA/IRON ORAL) See Admin Instructions. Activemultivitamin with iron (TAB-A-XIOMARA/IRON ORAL) See Admin Instructions. 0 Activeoseltamivir 75 mg oral capsule (3 sources)Neuraminidase InhibitorStart: 08-03-2019 End: 60-31-9449iwva 1 capsule by mouth every twelve hoursOseltamivir (Tamiflu) 75 mg capsule Discontinued 75 MG PO Q12H 10 5 August 03, 2019 12:00am July 182024 10:07am Problems Active Problems Problem ClassificationProblemDateDocumented DateEpisodic/ChronicAnxiety disorders (20 sources)Obsessive-compulsive disorder; 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: [Obsessive-compulsive disorder, unspecified]Onset: 733064-90-5804AfuznmbQjthxkn kidney disease (1 source)Chronic kidney disease; 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: [Chronic kidney disease, stage 3a]Onset: 56-86-7638Aivzyfi ulcer of skin (20 sources)Pressure ulcer of right heel, stage 2; 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: [Pressure ulcer, heel]31-04-1854DyjihokPjitkspopsxw of device; implant or graft (4 sources)Catheter-associated urinary tract infection; 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: [Infection and inflammatory reaction dueto indwelling urethral catheter, initial encounter]97-28-3922HjbpfxwxMmefksf on above:Problem List clean-up per request of Phys. EHR CmteDeficiency and other anemia (1 source)Other iron deficiency anemias; 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: [OTHER IRON DEFICIENCY ANEMIAS]Onset: 68-23-2130DnmgqzqeFqlvbwujjstpa disorders (20 sources)Intellectual disability; 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: [Unspecified intellectual disabilities]Onset: 035375-36-7750JwzjbujOpbrczhsw of lipid metabolism (20 sources)Mixed hyperlipidemia; 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: [Mixed hyperlipidemia]Onset: 32-72-5159AcpbqzrZkafnmlnn hypertension (20 sources)Essential (primary) hypertension; 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: [Hypertensive disorder]Onset: 072997-36-0463HvviuvzTfwfwexd of upper limb (1 source)Unspecified fracture of third metacarpal bone, right hand, initial encounter for closed fracture; 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: [Closed fracture of metacarpal bone(s), site unspecified]76-05-8253ScoditbgWphmvbotqjdez symptoms and ill- defined conditions (20 sources)Suprapubic urinary catheter in situ; 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: [Other cystostomy status]64-52-2998JndluljGkgkilvncmku with complications and secondary hypertension (10 sources)Chronic kidney disease stage 3A ; 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: [Hypertensive chronic kidney disease with stage 1 through stage 4 chronic kidney disease, or unspecified chronic kidney disease]Onset: 615483-66-5658WzfjeapGgvrxsz control disorders, NEC (20 sources)Impulse control disorder; 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: [Impulse disorder, unspecified]Onset: 067922-75-6157EqhuxdvVxisotetd (3 sources)Influenza due to Influenza A virus; 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: [Influenza due to other identified influenza virus with other respiratory manifestations] 06-84-1099TtoamwpnWcojsdx on above:Problem List clean-up per request of Phys. EHR CmteMycoses (1 source)Onychomycosis due to dermatophyte ; 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: [Tinea unguium] 02-13-6053RakpvttyWraypnu system congenital anomalies (20 sources)Spina bifida of lumbar region; 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: [Lumbar spina bifida without hydrocephalus]Onset: 062346-94-4913IajlcoyIqsarxdmgvf deficiencies (1 source)Vitamin D deficiency, unspecified; 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: [VITAMIN D DEFICIENCY UNSPECIFIED]Onset: 23-12-9262LsxowceVexmphaxnctzjg (3 sources)Osteoarthritis of multiple joints ; 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: [Polyosteoarthritis, unspecified]17-06-6066DapdsljNsrum connective tissue disease (1 source)Hand pain; 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: [Pain in right hand]00-64-3493AamrnmwqGeecx connective tissue disease (1 source)Pain in right hand; 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: [Pain in right hand]Onset: 97-33-3414GkrfckonGlsvu diseases of bladder and urethra (20 sources)Spastic neurogenic bladder; 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: [Other neuromuscular dysfunction of bladder]Onset: 203052-57-9306CuovvbcDfgdi diseases of bladder and urethra (1 source)Other neuromuscular dysfunction of bladder; 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: [Other neuromuscular dysfunction of bladder]Onset: 79-01-8254UdgjxioRuzyu nervous system disorders (20 sources)Hereditary sensory-motor neuropathy, type I; 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: [Hereditary motor and sensory neuropathy]98-50-8911YbatfbtSllfu nutritional; endocrine; and metabolic disorders (1 source)Overweight; 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: [Overweight]20-96-0578JovxnaxaRnrfl skin disorders (1 source)Dystrophia unguium; 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: [Nail dystrophy]35-08-7659Mvojlffh Paralysis (20 sources)Flaccid paraplegia; 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: [Paraplegia, incomplete]02-28-2024 ChronicUnclassified (3 sources)CONTACT W/AND (SUSP) EXPOS COVID-19; 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: [CONTACT W/AND (SUSP) EXPOS COVID-19]Onset: 90-04-2551Mslzjqegergw (1 source)CV recheck/ medicationsOnset: 53-07-7036Gvykpbfurutb (1 source)Bladder ProblemOnset: 12-59-9549Mtsbfox tract infections (2 sources)Urinary tract infectious -99-4302KleqpkajLgkvd infection (2 sources)COVID-19; 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: [Other specified viral infection]01-09-2024 Episodic Past or Other Problems Problem ClassificationProblemDateDocumented DateEpisodic/ChronicAllergic reactions (20 sources)Psychogenic urticaria; 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: [Other urticaria]Onset: 05-05-2017 Resolved: 389515-59-0633LbvimdkaRvqxldbnz-nhnbisl, conduct, and disruptive behavior disorders (20 sources)Aggressive behavior; 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: [Other symptoms and signs involving appearance and behavior]Onset: 117143-81-7917DhfvgxvxQzrafboh injury or internal injury (20 sources)Injury of rectum with open wound into abdominal cavity; 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: [Unspecified injury of rectum, initial encounter]Onset: 07-01-2019 Resolved: 597187-12-7429JydqhrfhNrqwdppsmt and other anemia (20 sources)Anemia; 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: [Anemia, unspecified]Onset: 07-18-2019 42-40-0240MgkbhpxkOmwdxrjwp of teeth and jaw (8 sources)Dental caries; 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: [Dental caries, unspecified]Onset: 633600-28-3664FroylpzpX Codes: Fall (1 source)Fall; 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: [Unspecified fall, sequela]85-03-9571Etlerwdr Hemorrhoids (20 sources)Hemorrhoids; 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: [Unspecified hemorrhoids]Onset: 289354-19-0853HldswdkuYczcixwbiqocp and screening for infectious disease (5 sources)Encounter for screening for other viral diseases; 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: [Patient encounter status]Onset: 657094-74-9180ExezrdsdHxro disorders (20 sources)Mood disordersOnset: 10-25-2023 Resolved: Other aftercare (1 source)Other [place] [facility] (current) drug therapy; 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: [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]Onset: 41-37-6029CvzfzkgoIlrpz ear and sense organ disorders (20 sources)Excessive cerumen in ear canal ; 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: [Impacted cerumen, bilateral]Onset: 587344-00-4573JurqeavbYosrf gastrointestinal disorders (20 sources)Chronic constipation; 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: [Other constipation]Onset: 527633-36-7018QuikfnykGwkhb liver diseases (20 sources)Increased vitamin B; 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: [Other specified abnormal findings of blood chemistry]Onset: 141172-68-2865WgpriifwPpabvgyhxmyz (1 source)CONTACT W/AND (SUSP) EXPOS COVID-19; 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: [CONTACT W/AND (SUSP) EXPOS COVID-19]Onset: 54-64-6150Dhngfxnrsbel (20 sources)Onset: 866699-51-4747 Results Test NameValueInterpretationReference RangeFacilityURINE CULTUREon 02-02-2025 Bacteria identified Cx Nom (U)CULTURE RESULTS EXTENDED SPECTRUM BETA LACTAMASE ESCHERICHIA COLI >100,000 CFU/mL Extended Spectrum Beta Lactamase Escherichia coli ESCHERICHIA COLI 50,000-100,000 CFU/mL Escherichia coli variant ENTEROCOCCUS SPECIES 10,000-50,000 CFU/mL Enterococcus species Ampicillin or Amoxicillin is the drug of choice for uncomplicated cystitis caused by enterococci. Cephalosporins are inappropriate. PROTEUS MIRABILIS 10,000-50,000 CFU/mL Proteus mirabilis [ S = SUSCEPTIBLE R = RESISTANT I = INTERMEDIATE S-DO = Susceptible-dose dependent NS = Non-suscceptible NO = No Interpretation ] Organism: EXTENDED SPECTRUM BETA LACTAMASE ESCHERICHIA COLI Antibiotic Interpretation BAMBI Status Ampicillin R >=^32.0 F AMP/SULBACTAM S 4.0 F PIPERACIL/TAZOBACTAM S <=^4.0 F Cefazolin (non-urinary) R >=^32.0 F Cefazolin (urinary) R >=^32.0 F ESBL Test A F Organism produces an extended spectrum beta lactamase (ESBL). It may be clinically resistant to therapy with penicillins, cephalosporins, or aztreonam. Contact laboratory if further information is required. Ertapenem S <=^0.12 F Gentamicin S <=^1.0 F Ciprofloxacin I 0.5 F Levofloxacin I 1.0 F Nitrofurantoin S <=^16.0 F Trimethoprim + Sulfamethoxazole R >=^16.0 F [ S = SUSCEPTIBLE R = RESISTANT I = INTERMEDIATE S-DO = Susceptible-dose dependent NS = Non-suscceptible NO = No Interpretation ] Organism: ESCHERICHIA COLI Antibiotic Interpretation BAMBI Status Ampicillin S 8.0 F AMP/SULBACTAM S 4.0 F PIPERACIL/TAZOBACTAM S <=^4.0 F Cefazolin (non-urinary) S <=^1.0 F Cefazolin (urinary) S <=^1.0 F Ceftriaxone S <=^0.25 F Gentamicin S <=^1.0 F Ciprofloxacin R >=^4.0 F Levofloxacin R >=^8.0 F Nitrofurantoin S <=^16.0 F Trimethoprim + Sulfamethoxazole S <=^1.0 F [ S = SUSCEPTIBLE R = RESISTANT I = INTERMEDIATE S-DO= Susceptible-dose dependent NS = Non-suscceptible NO = No Interpretation ] Organism: ENTEROCOCCUS SPECIES Antibiotic Interpretation BAMBI Status Ampicillin S <=^2.0 F Levofloxacin S 2.0 F Nitrofurantoin S <=^16.0 F Vancomycin S 1.0 F Susceptibility Comment F [ S = SUSCEPTIBLE R = RESISTANT I = INTERMEDIATE S-DO = Susceptible-dose dependent NS = Non-suscceptible NO = No Interpretation ] Organism: PROTEUS MIRABILIS Antibiotic Interpretation BAMBI Status Ampicillin S <=^2.0 F AMP/SULBACTAM S <=^2.0 F PIPERACIL/TAZOBACTAM S <=^4.0 F Cefazolin (non-urinary) I 4.0 F Cefazolin (urinary) S 4.0 F Ceftriaxone S <=^0.25 F Gentamicin S <=^1.0 F Ciprofloxacin S <=^0.06 F Levofloxacin S <=^0.12 F Nitrofurantoin R 128.0 F Trimethoprim + Sulfamethoxazole S <=^1.0 FSusceptibleProMedica Hospital Ambulatory PPGComment on above:Order Comment: Dominique Hoskins NP requested workup on all organism 02/08/25Performed By: #### UC #### [facility] ([facility]) [address] [place] [address] VIRXR hand RT min 3V*on 08-70-7951HK hand RT min 3V*[facility] Main [address] [address] XRay Report Signed Patient: Igor Pereira MR#: [id number] : 1960 Acct:[id number] Age/Sex: 64 / M ADM Date: 08/03/24 Loc: XDUCLY Room: Type: [facility] Attending Dr: Jaky Adames APRN Copies to: Jaky Adames APRN Ordering Provider: Jaky Adames APRN Date of Service: 08/03/24 XR/XR [...] DIGIT. Impression dictated by: Uriel Coleman Jr., DRubaORuba08/03/2024 11:07 AM Dictation Location: [place] [address] Transcribed By: [facility] 08/03/24 1107 Dictated By: Uriel Coleman Jr, DO 08/03/24 1105 Signed By: 08/03/24 1107[facility] Physician GroupBASIC METABOLIC PANLon 72-81-1843Kzwsh gap [Moles/Vol]9 mmol/LNormal5-15ProOhiohealth [facility]heastern [facility] Center Comment on above:Performed By: #### HETAL DICK, 23398-8 #### [facility] ([id number]) [address], [address] [place], [place] [address]Qpzkfzn [Mass/Vol]9.2 mg/dLNormal8.5-10.5Pro[facility] HospitalComment on above:Performed By: #### HETAL DICK, 89840-0 #### [facility] ([id number]) [address], [address] [place], [place] [address]Lklxalbg [Moles/Vol]103 mmol/RTsobnq29-344MkgOptuyz [facility] HospitalComment on above:Performed By: #### HETAL DICK, 84168-6 #### [facility] ([id number]) [address] [address] [place], [place] [address]WH1 [Moles/Vol]27 mmol/GTrdhbv51-06FajTthnmcCleveland Clinic [facility] Comment on above:Performed By: #### HETAL DICK, 44677-4 #### [facility] ([id number]) [address], [address] [place], [place] [address]Intnaobqlt [Mass/Vol]1.07 mg/dLNormal0.60-1.30ProOhiohealth Southeastern Medical CenterComment on above:Result Comment: METHOD TRACEABLE TO IDMS STANDARD Performed By: #### HETAL DICK, 90979-4 #### [facility] ([id number]) [address] [address] [address] [place], [place] [address]UYD/1.73 sq M.predicted among non-blacks MDRD (S/P/Bld) [Vol rate/Area]78 mL/min/{1.73_m2}Normal>59ProOhiohealth Southeastern Medical CenterComment on above: Result Comment: Reported eGFR is based on the CKD-EPI 2020 equation that does not use a race coefficient.Performed By: #### HETAL DICK, 69293-3 #### [facility] ([id number]) [address] [address] [place], [place] [address]Dukiwuq [Mass/Vol]68 mg/uLGeprra65-40RdsMsdlnfAdena Regional Medical Center Comment on above:Performed By: #### HETAL DICK, 09433-9 #### [facility] ([id number]) [address] [address] [place], [place] [address]Nsmvchjhw [Moles/Vol]4.2 mmol/LNormal3.5-5.0ProOhiohealth Southeastern Medical CenterComment on above:Performed By: #### HETAL DICK, 09902-6 #### [facility] ([id number]) [address], [address] [place], [place] [address]Hdqhzv [Moles/Vol]139 mmol/BYygiad793-238XgzLvjwum [facility] HospitalComment on above:Performed By: #### CBCFrancesca BMP, 38601-4 #### [facility] ([id number]) [address] [place], [place] [address]Uekt nitrogen [Mass/Vol]23 mg/dLNormal5-27ProMedica [facility] HospitalComment on above:Performed By: #### CBCA, BMP, 98384-4 #### [facility] ([id number]) [address], [address] [place], [place] [address]XQV AND AUTO DIFFon 06-44-9117UKZCAYFD BASOPHIL0.1 X10E9/LNormal 0.0-0.2ProMedica [facility] HospitalComment on above:Performed By: #### CBCFrancesca BMP, 63914-7 #### [facility] ([id number]) [address] [place], [place] [address]Itrktcefc/100 WBC (Bld)1.0 %NormalProCleveland Clinic Children'[facility] Hospital Comment on above:Performed By: #### CBCFrancesca, BMP, 74882-2 #### [facility] ([id number]) [address] [place], [place] [address]BAPK8+AbnormalNONEProMedica Mineola HospitalComment on above: Performed By: #### CBCA, BMP, 03061-3 #### [facility] ([id number]) [address], [address] [place], [place] [address]Wkcfbwgkoxd (Bld) [#/Vol]0.2 10*3/uLNormal0.0-0.4ProMedica [facility] HospitalComment on above:Performed By: #### CBCA, BMP, 15662-1 #### [facility] ([id number]) [address] [place], [place] [address]Gyviabjeylu/100 WBC (Bld)2.0 %NormalProMedica [facility] Comment on above:Performed By: #### CBCA, BMP, 11371-2 #### [facility] ([id number]) [address] [place], [place] [address]Iqptimmhieu distribution width (RBC) [Ratio]14.4 %Normal 11.5-15.0ProMedica [facility] HospitalComment on above:Performed By: #### CBCA, BMP, 78002-2 #### [facility] ([id number]) [address] [place], [place] [address]Xvafedrvle (Bld) [Volume fraction]37.0 %Ngn04-03FyfMyuiah [facility] HospitalComment on above:Performed By: #### CBCA, BMP, 87467-3 #### [facility] ([id number]) [address], [address] [place], [place] [address]Fcnlkclkyo (Bld) [Mass/Vol]12.8 g/dLLow13.0-17.0ProMedica [facility] HospitalComment on above:Performed By: #### CBCA, BMP, 15076-8 #### [facility] ([id number]) [address], [address] [place], [place] [address]MMGETOLTZO, ATYPICAL2.0 %NormalProMedica Mineola HospitalComment on above:Performed By: #### CBCA, BMP, 72805-5 #### [facility] ([id number]) [address] [place], [place] [address]Btfcovvwutt (Bld) [#/Vol]1.5 10*3/uLNormal1.0-3.5ProMedica [facility]ynn HospitalComment on above:Performed By: #### CBCA, BMP, 31378-8 #### [facility] ([id number]) [address], [address] [place], [place] [address]Ciplvygmuqk/100 WBC (Bld)17.6 %NormalAdena Regional Medical Center Comment on above:Performed By: #### CBCA, BMP, 67217-2 #### [facility] ([id number]) [address], [address] [place], [place] [address]WUK (RBC) [Entitic mass]31.8 gtFlmayn01-53VqjIrylcr [facility] HospitalComment on above:Performed By: #### CBCA, BMP, 02702-0 #### [facility] ([id number]) [address], [address] [place], [place] [address]LYBC (RBC) [Mass/Vol]34.5 g/dPIsdgql40-40DvpNovfsv [place] HospitalComment on above:Performed By: #### CBCA, BMP, 38877-2 #### [facility] ([id number]) [address], [address] [place], [place] [address]YCO (RBC) [Entitic vol]92 cYWykbvt76-166GrbRjtdue [place] HospitalComment on above:Performed By: #### CBCA, BMP, 63417-0 #### [facility] ([id number]) [address], [address] [place], [place] [address]Rihffceqy (Bld) [#/Vol]0.9 10*3/uLNormal0-0.9ProTuscarawas Hospitalca [facility] HospitalComment on above:Performed By: #### CBCA, BMP, 21568-6 #### [facility] ([id number]) [address], [address] [place], [place] [address]Ywnisemzf/100 WBC (Bld)11.8 %NormalAdena Regional Medical Center Comment on above:Performed By: #### CBCA, BMP, 80867-8 #### [facility] ([id number]) [address] [place], [place] [address]Vpwqroqishi (Bld) [#/Vol]4.9 10*3/uLNormal1.5-6.6ProMedica Wynn HospitalComment on above:Performed By: #### CBCFrancesca BMP, 44477-3 #### [facility] ([id number]) [address], [address] [place], [place] [address]Qszxxlrf mean volume (Bld) [Entitic vol]10.0 fLNormal7-12 ProMedica [facility] HospitalComment on above:Performed By: #### CBCFrancesca, BMP, 76345-0 #### [facility] ([id number]) [address], [address] [place], [place] [address]Iiymhxafx (Bld) [#/Vol]149 10*3/lNYtg003-696EduFsglgv [facility] HospitalComment on above:Performed By: #### CBCFrancesca, BMP, 66050-7 #### [facility] ([id number]) [address], [address] [place], [place] [address]AUM COUNT4.02 X10E12/LLow4.10-5.70[facility] Comment on above:Performed By: #### HETAL DICK, 70369-3 #### [facility] ([id number]) [address], [address] [place], [place] [address]BIW UPAOCUEGMN88.6 %NormalProMedica Mineola HospitalComment on above:Performed By: #### CBCFrancesca, BMP, 28913-9 #### [facility] ([id number]) [address] [place], [place] [address]GNW (Bld) [#/Vol]7.5 10*3/uLNormal4.0-11.0ProMedica [facility]ynn HospitalComment on above:Performed By: #### CBCA, BMP, 16200-8 #### [facility] ([id number]) [address], [address] [place], [place] [address]LBP Ab IA Qlon 04-25-2723PCXF HCV W/PCR REFLXNon-ReactiveNormal NRCTProOhiohealth Southeastern Medical CenterComment on above:Result Comment: If recent infection suspected, recommend repeat testing (>2 months). Fxhvbj-vu-jpiujy ratio is <0.80.Performed By: #### CBCA, BMP, 86950-4 #### [facility] ([id number]) [address], [address] [place], [place] [address]Rodjobaajhn specimen 2019 novel coronavirus RNA detection by probe and target amplifion 98-61-6935YCCO-CoV-2 (COVID-19) RNA PATRICIA+probe Ql (Resp)PositiveMagruder HospitalCBC AND AUTO DIFFon 11-06-2023 ABSOLUTE BASOPHIL0.0 X10E9/LNormal0.0-0.2Pro[facility] HospitalComment on above:Performed By: #### CBCA, CMP, FEPR, 33258-8, HA1C #### [facility] ([id number]) [address] [place], [place] [address]BCDJBKDB NEUTROPHIL4.0 X10E9/LNormal1.5-6.6ProOhiohealth Southeastern Medical CenterComment on above:Performed By: #### CBCA, CMP, FEPR, 30333-8, HA1C #### [facility] ([id number]) [address] [place], [place] [address]Kjywstohl/100 WBC (Bld)0.8 %NormalProOhiohealth Southeastern Medical Center Comment on above:Performed By: #### CBCA, CMP, FEPR, 36527-9, HA1C #### [facility] ([id number]) [address], [address] [place], [place] [address]Ghbjfizefxr (Bld) [#/Vol]0.1 10*3/uLNormal0.0-0.4ProOhiohealth Southeastern Medical CenterComment on above:Performed By: #### CBCA, CMP, FEPR, 77157-4, HA1C #### [facility] ([id number]) [address] [address] [place], [place] [address]Vxrigubsmiz/100 WBC (Bld)2.0 %NormalAdena Regional Medical Center Comment on above:Performed By: #### CBCA, CMP, FEPR, 52894-4, HA1C #### [facility] ([id number]) [address], [address] [place], [place] [address]Bcrlktjbpiw distribution width (RBC) [Ratio]15.0 %Normal 11.5-15.0ProCleveland Clinic Children'S Hospital For Rehabilitation HospitalComment on above:Performed By: #### CBCA, CMP, FEPR, 75716-8, HA1C #### [facility] ([id number]) [address] [place], [place] [address]Hyaagfkepj (Bld) [Volume fraction]36.7 %Jyr03-82PelUqrtfuOhiohealth Southeastern Medical CenterComment on above:Performed By: #### CBCA, CMP, FEPR, 69868-3, HA1C #### [facility] ([id number]) [address] [place], [place] [address]Qdmocmdwjj (Bld) [Mass/Vol]12.4 g/dLLow13.0-17.0ProOhiohealth Southeastern Medical CenterComment on above:Performed By: #### CBCA, CMP, FEPR, 53626-2, HA1C #### [facility] ([id number]) [address] [place], [place] [address]Laukzkzoxqp (Bld) [#/Vol]1.2 10*3/uLNormal1.0-3.5ProMedica [facility] Warren HospitalComment on above:Performed By: #### CBCA, CMP, FEPR, 78835-5, HA1C #### [facility] ([id number]) [address] [address] [place], [place] [address]Nzebukyrdir/100 WBC (Bld)21.4 %NormalAdena Regional Medical Center Comment on above:Performed By: #### CBCA, CMP, FEPR, 09095-5, HA1C #### [facility] ([id number]) [address] [place], [place] [address]LEB (RBC) [Entitic mass]30.8 fjIyqhku19-79UuiNvhqor [facility] HospitalComment on above:Performed By: #### CBCA, CMP, FEPR, 41554-3, HA1C #### [facility] ([id number]) [address], [address] [place], [place] [address]QTDS (RBC) [Mass/Vol]33.7 g/nFMuxhxe63-33JxiZqdbyc [facility] HospitalComment on above:Performed By: #### CBCA, CMP, FEPR, 19153-3, HA1C #### [facility] ([id number]) [address], [address] [place], [place] [address]KUH (RBC) [Entitic vol]91 oGIvumab96-099UylKxzfef [place] HospitalComment on above:Performed By: #### CBCA, CMP, FEPR, 92228-1, HA1C #### [facility] ([id number]) [address] [place], [place] [address]Ebqemktuk (Bld) [#/Vol]0.4 10*3/uLNormal0-0.9ProCleveland Clinic [facility] For Rehabilitation HospitalComment on above:Performed By: #### CBCA, CMP, FEPR, 68355-9, HA1C #### [facility] ([id number]) [address] [place], [place] [address]Nnejwevvs/100 WBC (Bld)6.9 %NormalProCleveland Clinic Children'S Hospital For Rehabilitation Hospital Comment on above:Performed By: #### CBCA, CMP, FEPR, 56960-9, HA1C #### [facility] ([id number]) [address] [place], [place] [address]Dntnesxlmzg/100 WBC (Bld)68.9 %NormalAdena Regional Medical Center Comment on above:Performed By: #### CBCA, CMP, FEPR, 21831-8, HA1C #### [facility] ([id number]) [address] [place], [place] [address]Llojcryq mean volume (Bld) [Entitic vol]9.3 fLNormal7-12 [facility] HospitalComment on above:Performed By: #### CBCA, CMP, FEPR, 32526-6, HA1C #### [facility] ([id number]) [address] [place], [place] [address]Ndbsmlczi (Bld) [#/Vol]158 10*3/lPYujtmo499-480OctKelesz [place] HospitalComment on above:Performed By: #### CBCA, CMP, FEPR, 72511-4, HA1C #### [facility] ([id number]) [address] [place], [place] [address]LAR COUNT4.02 X10E12/LLow4.10-5.70[facility] Comment on above:Performed By: #### CBCA, CMP, FEPR, 95213-4, HA1C #### [facility] ([id number]) [address], [address] [place], [place] [address]DHD (Bld) [#/Vol]5.8 10*3/uLNormal4.0-11.0ProOhiohealth Southeastern Medical CenterComment on above:Performed By: #### CBCA, CMP, FEPR, 41014-5, HA1C #### [facility] ([id number]) [address] [place], [place] [address]WZBKBFTJLDCCG METABOLIC PANELon 64-42-0968Tihoivb [Mass/Vol]3.9 g/dLNormal3.2-5.3PCleveland Clinic Children's Hospital for RehabilitationComment on above:Performed By: #### CBCA, CMP, FEPR, 58962-2, HA1C #### [facility] ([id number]) [address], [address] [place], [place] [address]TUM [Catalytic activity/Vol]77 U/JIrbtsx62-521VmnBbqdez [place] HospitalComment on above:Performed By: #### CBCA, CMP, FEPR, 32129-6, HA1C #### [facility] ([id number]) [address] [place], [place] [address]TVU [Catalytic activity/Vol]18 U/LNormal0-40Pro[facility] HospitalComment on above:Performed By: #### CBCA, CMP, FEPR, 02243-3, HA1C #### [facility] ([id number]) [address] [place], [place] [address]Sbkdd gap [Moles/Vol]9 mmol/LNormal5-15ProTuscarawas Hospitalca [facility] Comment on above:Performed By: #### CBCA, CMP, FEPR, 75160-8, HA1C #### [facility] ([id number]) [address] [place], [place] [address]DKN [Catalytic activity/Vol]14 U/LNormal0-41ProMedica [facility] HospitalComment on above:Performed By: #### CBCA, CMP, FEPR, 35218-1, HA1C #### [facility] ([id number]) [address], [address] [place], [place] [address]Cnjqxhvtl [Mass/Vol]0.3 mg/dLNormal0.3-1.2ProMedSelect Medical Specialty [facility], Inc HospitalComment on above:Performed By: #### CBCA, CMP, FEPR, 87624-7, HA1C #### [facility] ([id number]) [address] [place], [place] [address]Veapgys [Mass/Vol]9.1 mg/dLNormal8.5-10.5Pro[facility]ica [facility] HospitalComment on above:Performed By: #### KAPIL, KAYCE, FEPR, 01984-9, HA1C #### [facility] ([id number]) [address] [place], [place] [address]Smgmerea [Moles/Vol]106 mmol/DQbpihk81-955HxcQbaoql [place] HospitalComment on above:Performed By: #### KAYCE DICK, FEPR, 21544-8, HA1C #### [facility] ([id number]) [address] [place], [place] [address]NE4 [Moles/Vol]29 mmol/RQhfaqt01-24OwgPzlmliCleveland Clinic Children's Hospital for Rehabilitation Comment on above:Performed By: #### KAYCE DICK, FEPR, 88067-9, HA1C #### [facility] ([id number]) [address] [place], [place] [address]Aszkdlfocp [Mass/Vol]1.15 mg/dLNormal0.60-1.30ProOhiohealth Southeastern Medical CenterComment on above:Result Comment: METHOD TRACEABLE TO IDMS STANDARD Performed By: #### KAYCE DICK, FEPR, 74618-2, HA1C #### [facility] ([id number]) [address] [place], [place] [address]OGX/1.73 sq M.predicted among non-blacks MDRD (S/P/Bld) [Vol rate/Area]72 mL/min/{1.73_m2}Normal>59ProOhiohealth Southeastern Medical CenterComment on above: Result Comment: Reported eGFR is based on the CKD-EPI 2020 equation that does not use a race coefficient.Performed By: #### CBCFrancesca, CMP, FEPR, 52026-9, HA1C #### [facility] ([id number]) [address] [place], [place] [address]Ezhfjnq [Mass/Vol]85 mg/sVOdobkr65-02KldYonaksAdena Regional Medical Center Comment on above:Performed By: #### CBCA, CMP, FEPR, 16853-4, HA1C #### [facility] ([id number]) [address] [place], [place] [address]Rvjqgskhc [Moles/Vol]4.2 mmol/LNormal3.5-5.0ProCleveland Clinic Children'[facility] For Rehabilitation HospitalComment on above:Performed By: #### CBCFrancesca, CMP, FEPR, 07425-5, HA1C #### [facility] ([id number]) [address] [place], [place] [address]Hxxrafi [Mass/Vol]7.0 g/dLNormal6.0-8.0ProC[facility] Clinic [facility] Rehabilitation Hospital Comment on above:Performed By: #### KAPIL, CMP, FEPR, 95271-6, HA1C #### [facility] ([id number]) [address] [place], [place] [address]Ntxosp [Moles/Vol]144 mmol/JVttzyl701-649LktImyeve [place] HospitalComment on above:Performed By: #### KAPIL, CMP, FEPR, 44032-2, HA1C #### [facility] ([id number]) [address] [place], [place] [address]Zkje nitrogen [Mass/Vol]18 mg/dLNormal5-27ProCleveland Clinic Children'S [facility] For Rehabilitation HospitalComment on above:Performed By: #### CBCFrancesca, CMP, FEPR, 53505-6, HA1C #### [facility] ([id number]) [address] [place], [place] [address]MEX A1C (GLYCO-HGB)on 11-33-8606Agfzmiw [Mass/Vol]111 mg/dL NormalProCleveland Clinic Children'S Hospital For Rehabilitation HospitalComment on above:Performed By: #### CBCA, CMP, FEPR, 79890-5, HA1C #### [facility] ([id number]) [address] [place], [place] [address]MfT9r (Bld) [Mass fraction]5.5 %Normal4.4-5.6ProOhiohealth Southeastern Medical CenterComment on above:Result Comment: NOTE ADA Guidelines Result HgbA1c Normal : less than 5.7 % Prediabetes : 5.7 % to 6.4 % Diabetes : > 6.4 % Use with caution in patients with abnormal hemoglobin variants as the half-life of red blood cells and in vivo glycation rates are affected.Performed By: #### CBCA, CMP, FEPR, 88216-5, HA1C #### [facility] ([id number]) [address] [place], [place] [address]SEUL PROFILEon 76-76-6799Aary [Mass/Vol]58 ug/oTMhuqtb29-940 ProMFisher-Titus Medical CenterComment on above:Performed By: #### CBCA, CMP, FEPR, 30507-1, HA1C #### [facility] ([id number]) [address] [place], [place] [address]CYUM ABOJFGC475 ug/jAGpqntx018-016JrkNrfkojAdena Regional Medical Center Comment on above:Performed By: #### CBCA, CMP, FEPR, 29903-7, HA1C #### [facility] ([id number]) [address] [place], [place] [address]NQYK BOMGUYMQZN59 % ITXJNJIHIFEcw17-40VqwHuentq [facility] Comment on above:Performed By: #### CBCA, CMP, FEPR, 32541-1, HA1C #### [facility] ([id number]) [address] [place], [place] [address]Kedkj 1995 panelon 82-87-2995Aygseqmpxuy [Mass/Vol]131 mg/dLLow 150-200ProOhiohealth Southeastern Medical CenterComment on above:Performed By: #### CBCA, CMP, FEPR, 31498-5, HA1C #### [facility] ([id number]) [address] [place], [place] [address]Dyfxxckouoa in HDL [Mass/Vol]57 mg/dLNormal>39ProC[facility] Clinic [facility] HospitalComment on above:Result Comment: HDL <40 mg/dL - High Risk HDL > or = 40mg/dL- Desirable HDL >60 mg/dL - Negative Risk Performed By: #### CBCA, CMP, FEPR, 06688-0, HA1C #### [facility] ([id number]) [address] [address]Rmkwobdmska in LDL [Mass/Vol]61 mg/dLNormal<130ProCleveland Clinic Children'S Hospital For Rehabilitation HospitalComment on above:Result Comment: LDL <100 mg/dL - Desirable LDL >160 mg/dL - High Risk Performed By: #### CBCA, CMP, FEPR, 77512-8, HA1C #### [facility] ([id number]) [address] [address]Phmzgrarrgo in VLDL [Mass/Vol]13 mg/dLNormal0-30ProCleveland Clinic Children'S [facility] For Rehabilitation HospitalComment on above:Performed By: #### CBCA, CMP, FEPR, 02593-3, HA1C #### [facility] ([id number]) [address] [address]EXPJKCGQPIE:HDL2.4Gsgjyh2.0-5.0ProCleveland Clinic Children'S Hospital For Rehabilitation HospitalComment on above:Performed By: #### CBCA, CMP, FEPR, 52839-6, HA1C #### [facility] ([id number]) [address] [facility], [address] [place], [place] [address]Qfujsrmmkyzd [Mass/Vol]67 mg/eYWlsigu45-390WsqPqnkgl [facility] HospitalComment on above:Performed By: #### CBCA, CMP, FEPR, 87789-6, HA1C #### [facility] ([id number]) [address] [place], [place] [address]Wijitlvd Noteson 46-59-3194Zkhbjjkxlutrd Authentication Interface Message Text----- Wednesday, November 30, 2022 at 1:07:59 PM ----- ----- Provider: [id number] Dileep -- Clinic: [place] ----- OR EVALUATION Patient presents for evaluation [...] becomes available. Legal Guardian: Vilma Schmitt (Sister) [phone] , verbal consent was taken NOTE: OR request was put in place Next Visit: Dental treatment in the OR ----- Signed on Wednesday, November 30, 2022 at 8:25:31 PM ----- ----- Provider: [id number] Glass DMD -- Clinic: [place] -----NormalThe [facility] SystemCBC AUTO DIFFon 26-32-2748IXMT #0.0 103/ulNormal0.0-0.1The [facility] Medical CenterComment on above:Performed By: #### CBC #### [facility] [address] [place], [place] [address] Dr. Dante Muhammadsophils/100 WBC (Bld)0.5 %Normal0.2-2.0The [facility] Comment on above:Performed By: #### CBC #### [facility] [address] [place] [address] [address] Dante Gr #0.2 103/ulNormal0.0-0.7The [facility] CenterComment on above: Performed By: #### CBC #### [facility] [address] [place] [address] Dr. Dante Arroyoosinophils/100 WBC (Bld)2.3 %Normal0.9-7.0The [facility] Comment on above:Performed By: #### CBC #### [facility] [address] [place] [address] Dr. Dante Arroyorythrocyte distribution width (RBC) [Ratio]13.6 %Ntzsgr46.0-15.0 The [facility] Centerment on above:Performed By: #### CBC #### [facility] [address] [place] [address] Dr. Dante JulesHematocrit (Bld) [Volume fraction]41.6 %Critically low42.0-54.0 [facility] Hospitalment on above:Performed By: #### CBC #### [facility] [address] [place] [address] Dr. Dante JulesHemoglobin (Bld) [Mass/Vol]13.3 g/dLCritically low14.0-18.0The [facility] Centerment on above:Performed By: #### CBC #### [facility] [address] [place] [address] Dr. Dante Peraza #0.01 10e3/ulNormal0.00-0.03The [facility] Centerment on above:Performed By: #### CBC #### [facility] [address] [place] [address] Dr. Dante Peraza %0.1 %Normal0.0-0.5The [facility] CenterComment on above: Performed By: #### CBC #### [facility] [address] [place] [address] Dr. Dante Rawls #1.7 103/ulNormal1.2-3.8The [facility] HospitalComment on above:Performed By: #### CBC #### [facility] [address] [address] [address] Dante Kirkmphocytes/100 WBC (Bld)21.8 %Wlvzpg00.5-60.0The [facility] Centerment on above:Performed By: #### CBC #### [facility] [address] [place] [address] Dr. Dante Khan DIFF REQNONormalThe [facility] Medical CenterComment on above: Performed By: #### CBC #### [facility] [address] [place] [address] Dr. Dante Herr (RBC) [Entitic mass]29.4 ayYqhbix18.9-34.0The [facility] Medical CenterComment on above:Performed By: #### CBC #### [facility] [address] [place] [address] Dr. Dante Herr (RBC) [Mass/Vol]32.0 g/rGBhezyx99.9-35.2The [facility] CenterComment on above:Performed By: #### CBC #### [facility] [address] [place] [address] Dr. Dante Herr (RBC) [Entitic vol]91.8 cPOgcboy87.0-94.0The [facility] CenterComment on above:Performed By: #### CBC #### [facility] [address] [place] [address] Dr. Dante Terrazas #0.6 103/ulNormal0.3-0.8The [facility] Centerment on above:Performed By: #### CBC #### [facility] [address] [place] [address] Dr. Dante Alexanderocytes/100 WBC (Bld)7.8 %Normal1.7-12.0The [facility] on above:Performed By: #### CBC #### [facility] [address] [place] [address] Dr. Dante Vega #5.3 103/ulNormal1.4-6.5The [facility] CenterComment on above:Performed By: #### CBC #### [facility] [address] [address] [address] Dante Wallaceutrophils/100 WBC (Bld)67.5 %Wjcqao83.0-75.0The [facility] CenterComment on above:Performed By: #### CBC #### [facility] [address] [address] [address] Dante Pelayolet mean volume (Bld) [Entitic vol]10.2 fLNormal9.5-13.5The [facility] Medical CenterComment on above:Performed By: #### CBC #### [facility] [address] [place] [address] Dr. Dante JulesPLT191 103/adZinndp445-646Mfn [facility] CenterComment on above: Performed By: #### CBC #### [facility] [address] [place] [address] Dr. Dante JulesRBC4.53 106/ulCritically low4.70-6.10The [facility] CenterComment on above:Performed By: #### CBC #### [facility] [address] [place] [address] Dr. Dante JulesWBC7.9 103/ulNormal4.0-11.0The [facility] CenterComment on above: Performed By: #### CBC #### [facility] [address] [place] [address] Dr. Dante Walden AND TIBCon 10-24-2021% HTOMNMQNXS26.9 %NormalThe [facility] Medical CenterComment on above:Performed By: #### FETIBC #### [facility] [address] [place] [address] Dr. Dante Walden [Mass/Vol]67.0 ug/bMDbqree63.0-175.0The [facility] on above:Performed By: #### FETIBC #### [facility] [address] [place] [address] Dr. Dante PleitezC GGNCFA695.0 ug/aIKxskfj242.0-450.0[facility] Comment on above:Performed By: #### FETIBC #### [facility] [address] [address] [address] Dante MayaID PROFILEon 19-49-7531ZXRX-HDL RATIO NORMSTrumbull Regional Medical CenterComment on above:Result Comment: 3.3 - 4.4 LOW RISK 4.4 - 7.1 AVERAGE RISK 7.1 - 11.0 MODERATE RISK >11.0 HIGH RISKPerformed By: #### LIPID, CMP #### [facility] [address] [address] [address] Dante JulesCholesterol [Mass/Vol]170 mg/dLNormal<=200[facility] Comment on above:Performed By: #### LIPID, CMP #### [facility] [address] [address] [address] Dante JulesCholesterol in HDL [Mass/Vol]52 mg/kVGjtucj90-71Fmj [facility] CenterComment on above:Performed By: #### LIPID, CMP #### [facility] [address] [address] [address] Dante JulesCholesterol in LDL [Mass/Vol]104.0 mg/dLOhioHealth Grady Memorial HospitalComment on above:Performed By: #### LIPID, CMP #### [facility] [address] [address] [address] Dante Barfieldesterkhalif.total/Cholesterol in HDL [Mass ratio]3.3 {ratio} NormalMercy Health Fairfield HospitalComment on above:Performed By: #### LIPID, CMP #### [facility] [address] [address] [address] Dante JulesHDL NORMAL> or = 60 mg/dl - LOW CARDIOVASCULAR RISK <40 mg/dl - HIGH CARDIOVASCULAR RISKOhioHealth Grady Memorial HospitalComment on above:Performed By: #### LIPID, CMP #### [facility] [address] [place] [address] Dr. Dante JulesLDL CALC NORMALSEE [facility] Willard HospitalComment on above:Result Comment: <100 mg/dl OPTIMAL 100 - 129 mg/dl NEAR OR ABOVE OPTIMAL 130 - 159 mg/dl BORDERLINE HIGH 160 - 189 mg/dl HIGH >190 mg/dl VERY HIGH Performed By: #### LIPID, CMP #### [facility] [address] [place] [address] Dr. Dante JulesTriglyceride [Mass/Vol]70 mg/dLNormal<=150The [facility] Comment on above:Performed By: #### LIPID, CMP #### [facility] [address] [place] [address] Dr. Dante JulesVLDL CALC14.0 mg/dLNormalThe [facility] Medical CenterComment on above: Performed By: #### LIPID, CMP #### [facility] [address] [place] [address] Dr. Dante JulesPROF 14(COMP METB)on 19-81-8753Yskcsfp [Mass/Vol]3.4 g/dLNormal 3.4-5.0The [facility] CenterComment on above:Performed By: #### LIPID, CMP #### [facility] [address] [place] [address] Dr. Dante JulesAlbumin/Globulin [Mass ratio]0.8 {ratio}NormalThe [facility] Medical CenterComment on above:Performed By: #### LIPID, CMP #### [facility] [address] [place] [address] Dr. Dante Sanchez [Catalytic activity/Vol]104 U/WYedsrg68-789Eka [facility] CenterComment on above:Performed By: #### LIPID, CMP #### [facility] [address] [place] [address] Dr. Dante Aguirre [Catalytic activity/Vol]31 U/BIdpijo53-81Qwj [facility] CenterComment on above:Performed By: #### LIPID, CMP #### [facility] [address] [place] [address] Dr. Dante Muñoz gap [Moles/Vol]11.9 mmol/LNormalThe [facility] Comment on above:Performed By: #### LIPID, CMP #### [facility] [address] [address] [address] Dante JulesAST [Catalytic activity/Vol]22 U/GBpgcyp91-89Aot [facility] CenterComment on above:Performed By: #### LIPID, CMP #### [facility] [address] [address] [address] Dante JulesBilirubin [Mass/Vol]0.4 mg/dLNormal0.2-1.0The [facility] Comment on above:Performed By: #### LIPID, CMP #### [facility] [address] [address] [address] Dante JulesCalcium [Mass/Vol]9.0 mg/dLNormal8.5-10.1The [facility] Comment on above:Performed By: #### LIPID, CMP #### [facility] [address] [place] [address] Dr. Dante JulesChloride [Moles/Vol]106 mmol/HKwmdgp78-627Efz [facility] Comment on above:Performed By: #### LIPID, CMP #### [facility] [address] [address] [address] Dante JulesCO2 [Moles/Vol]26.3 mmol/EOtldmj57.0-32.0The [facility] Comment on above:Performed By: #### LIPID, CMP #### [facility] [address] [place] [address] Dr. aDnte JulesCreatinine [Mass/Vol]1.17 mg/dLNormal0.70-1.30The [facility] CenterComment on above:Performed By: #### LIPID, CMP #### [facility] [address] [place] [address] Dr. Dante ArroyoGFR-AF LIBYAN>60Normal>=60The [facility] CenterComment on above:Performed By: #### LIPID, CMP #### [facility] [address] [place] [address] Dr. Dante ArroyoGFR-NON AF LIBYAN>60Normal>=60The [facility] CenterComment on above:Performed By: #### LIPID, CMP #### [facility] [address] [address] [address] Dante JulesGlobulin (S) [Mass/Vol]4.2 g/dLNormRiverview Health InstituteComment on above:Performed By: #### LIPID, CMP #### [facility] [address] [address] [address] Dante JulesGlucose [Mass/Vol]95 mg/gMUzzlpw11-529YeuMercy Health Fairfield Hospital Comment on above:Performed By: #### LIPID, CMP #### [facility] [address] [address] [address] Dante JulesPotassium [Moles/Vol]4.2 mmol/LNormal3.5-5.1The [facility] Comment on above:Performed By: #### LIPID, CMP #### [facility] [address] [address] [address] Dante JulesProtein [Mass/Vol]7.6 g/dLNormal6.4-8.2The [facility] Comment on above:Performed By: #### LIPID, CMP #### [facility] [address] [address] [address] Dante JulesSodium [Moles/Vol]140 mmol/BBeilfn622-471Yzf [facility] Comment on above:Performed By: #### LIPID, CMP #### [facility] [address] [address] [address] Dante JulesUrea nitrogen [Mass/Vol]22.0 mg/dLCritically high7.0-18.0The [facility] CenterComment on above:Performed By: #### LIPID, CMP #### [facility] [address] [place] [address] Dr. Dante Dobson nitrogen/Creatinine [Mass ratio]18.8 mg/mgNoWyandot Memorial HospitalComment on above:Performed By: #### LIPID, CMP #### [facility] [address] [place] [address] Dr. Dante Nassar AUTO DIFFon 24-94-5579IBTL #0.0 103/ulNormal0.0-0.1The [facility] CenterComment on above:Performed By: #### VITKRYSTLE, PSAD #### [facility] [address] [place] [address] Dr. Dante JulesBasophils/100 WBC (Bld)0.5 %Normal0.2-2.0The [facility] Comment on above:Performed By: #### VITKRYSTLE, PSAD #### [facility] [address] [place] [address] Dr. Dante Gr #0.4 103/ulNormal0.0-0.7The [facility] CenterComment on above: Performed By: #### VITKRYSTLE PSAD #### [facility] [address] [place] [address] Dr. Dante Arroyoosinophils/100 WBC (Bld)5.0 %Normal0.9-7.0The [facility] Comment on above:Performed By: #### INDERJIT PSAD #### [facility] [address] [place] [address] Dr. Dante Arroyorythrocyte distribution width (RBC) [Ratio]13.6 %Qrgurr80.0-15.0 The [facility] Medical CenterComment on above:Performed By: #### INDERJIT PSAD #### [facility] [address] [place] [address] Dr. Dante JulesHematocrit (Bld) [Volume fraction]36.4 %Critically low42.0-54.0 [facility]:Performed By: #### VITKRYSTLE PSAD #### [facility] [address] [place] [address] Dr. Dante JulesHemoglobin (Bld) [Mass/Vol]11.8 g/dLCritically low14.0-18.0[facility]:Performed By: #### VITKRYSTLE, PSAD #### [facility] [address] [place] [address] Dr. Dante Peraza #0.02 10e3/ulNormal0.00-0.03[facility]:Performed By: #### VITKRYSTLE, PSAD #### [facility] [address] [place] [address] Dr. Dante Peraza %0.2 %Normal0.0-0.5[facility]: Performed By: #### VITAD, PSAD #### [facility] [address] [place] [address] Dr. Dante Rawls #2.3 103/ulNormal1.2-3.8[facility]:Performed By: #### VITAD, PSAD #### [facility] [address] [place] [address] Dr. Dante Vernonhocytes/100 WBC (Bld)28.0 %Mtkibe53.5-60.0The [facility] CenterComment on above:Performed By: #### VITKRYSTLE, PSAD #### [facility] [address] [place] [address] Dr. Dante TamezUAL DIFF REQNONormalThe [facility] CenterComment on above: Performed By: #### VITKRYSTLE, PSAD #### [facility] [address] [place] [address] Dr. Dante Herr (RBC) [Entitic mass]29.1 ebKkvpzj92.9-34.0The [facility] CenterComformerly [facility] on above:Performed By: #### VITKRYSTLE, PSAD #### [facility] [address] [place] [address] Dr. Dante Herr (RBC) [Mass/Vol]32.4 g/gOAnnmoz16.9-35.2The [facility] Centerment on above:Performed By: #### VITAD, PSAD #### [facility] [address] [place] [address] Dr. Dante Herr (RBC) [Entitic vol]89.7 xGVshcnb22.0-94.0The [facility] Centerment on above:Performed By: #### VITAD, PSAD #### [facility] [address] [place] [address] Dr. Yilan ChangMONO #0.7 103/ulNormal0.3-0.8The [facility] CenterComment on above:Performed By: #### INDERJIT, PSAD #### [facility] [address] [place] [address] Dr. Dante Alexanderocytes/100 WBC (Bld)8.5 %Normal1.7-12.0The [facility] Comment on above:Performed By: #### INDERJIT, PSAD #### [facility] [address] [place] [address] Dr. Dante WallaceUT #4.7 103/ulNormal1.4-6.5The [facility] HospitalComment on above:Performed By: #### INDERJIT, PSAD #### [facility] [address] [place] [address] Dr. Dante Wallaceutrophils/100 WBC (Bld)57.8 %Nkelak81.0-75.0The [facility] Medical CenterComment on above:Performed By: #### INDERJIT PSAD #### [facility] [address] [place] [address] Dr. Dante JulesPlatelet mean volume (Bld) [Entitic vol]9.9 fLNormal9.5-13.5The [facility] CenterComment on above:Performed By: #### INDERJIT, PSAD #### [facility] [address] [place] [address] Dr. Dante JulesPLT155 103/hdJwlmxh458-084Tnc [facility] CenterComment on above: Performed By: #### INDERJIT, PSAD #### [facility] [address] [place] [address] Dr. Dante JulesRBC4.06 106/ulCritically low4.70-6.10The [facility] CenterComment on above:Performed By: #### VITAD, PSAD #### [facility] [address] [place] [address] Dr. Dante JulesWBC8.0 103/ulNormal4.0-11.0The [facility] CenterComment on above: Performed By: #### VITAD, PSAD #### [facility] [address] [place] [address] Dr. Dante JulesPROF 14(COMP METB)on 51-99-1166Xzpabdu [Mass/Vol]3.1 g/dL Critically low3.4-5.0The [facility] CenterComment on above:Performed By: #### CMP #### [facility] [address] [address] [address] Dante JulesAlbumin/Globulin [Mass ratio]0.7 {ratio}NormalThe [facility] Medical CenterComment on above:Performed By: #### CMP #### [facility] [address] [place] [address] Dr. Dante LynosP [Catalytic activity/Vol]112 U/GKmdqlm04-740Xjx [facility] CenterComment on above:Performed By: #### CMP #### [facility] [address] [place] [address] Dr. Dante LyonsT [Catalytic activity/Vol]29 U/QKzflyn29-16Xvg [facility] CenterComment on above:Performed By: #### CMP #### [facility] [address] [place] [address] Dr. Dante Muñoz gap [Moles/Vol]13.7 mmol/LNormalThe [facility] Comment on above:Performed By: #### CMP #### [facility] [address] [place] [address] Dr. Dante JulesAST [Catalytic activity/Vol]15 U/SCinjje06-34Pgh [facility] CenterComment on above:Performed By: #### CMP #### [facility] [address] [place] [address] Dr. Dante JulesBilirubin [Mass/Vol]0.2 mg/dLNormal0.2-1.3The [facility] Comment on above:Performed By: #### CMP #### [facility] [address] [place] [address] Dr. Dante JulesCalcium [Mass/Vol]8.5 mg/dLNormal8.5-10.1The [facility] Comment on above:Performed By: #### CMP #### [facility] [address] [address] [address] Dante JulesChloride [Moles/Vol]104 mmol/NBnbsxe43-817Cbv [facility] Comment on above:Performed By: #### CMP #### [facility] [address] [address] [address] Dante JulesCO2 [Moles/Vol]24.2 mmol/NYwskmy23.0-30.0The [facility] Comment on above:Performed By: #### CMP #### [facility] [address] [address] [address] Dante JulesCreatinine [Mass/Vol]1.09 mg/dLNormal0.66-1.25The [facility] CenterComment on above:Performed By: #### CMP #### [facility] [address] [place] [address] Dr. Howell ChangEGFR-AF LIBYAN>60Normal>=60The [facility] Medical CenterComment on above:Performed By: #### CMP #### [facility] [address] [address] [address] Dante ArroyoGFR-NON AF LIBYAN>60Normal>=60[facility] HospitalComment on above:Performed By: #### CMP #### [facility] [address] [place] [address] Dr. Dante JulesGlobulin (S) [Mass/Vol]4.2 g/dLNormalThe [facility] CenterComment on above:Performed By: #### CMP #### [facility] [address] [address] [address] Dante JulesGlucose [Mass/Vol]117 mg/dLCritically aoey54-148YqkMercy Health Fairfield HospitalComment on above:Performed By: #### CMP #### [facility] [address] [address] [address] Dante JulesPotassium [Moles/Vol]3.9 mmol/LNormal3.4-5.0[facility] Comment on above:Performed By: #### CMP #### [facility] [address] [place] [address] Dr. Dante JulesProtein [Mass/Vol]7.3 g/dLNormal6.1-8.2The [facility] Comment on above:Performed By: #### CMP #### [facility] [address] [place] [address] Dr. Dante JulesSodium [Moles/Vol]138 mmol/XBzvqox188-181Wac [facility] Comment on above:Performed By: #### CMP #### [facility] [address] [place] [address] Dr. Dante JulesUrea nitrogen [Mass/Vol]22.0 mg/dLCritically high7.0-18.0The [facility] Medical CenterComment on above:Performed By: #### CMP #### [facility] [address] [place] [address] Dr. Dante Dobson nitrogen/Creatinine [Mass ratio]20.2 mg/mgNormalThAultman Alliance Community HospitalComment on above:Performed By: #### CMP #### [facility] [address] [place] [address] Dr. Dante JulesVITAMIN D 25 OHon 95-72-7922YRX D 25-OH31.9 ng/mLNormalThe [facility] Medical CenterComment on above:Performed By: #### LEX JANSEN #### [facility] [address] [place] [address] Dr. Dante Francois RANGESSEE BELOWOhioHealth Grady Memorial HospitalComment on above: Result Comment: <20 ng/mL Vit D deficient 20 - <30 ng/mL Vit D insufficient 30 - 100 ng/mL Vit D sufficient >100 ng/mL Potential ToxicityPerformed By: #### VITAD, PSAD #### [facility] [address] [place] [address] Dr. Dante JulesCBC AUTO DIFFon 69-11-3315MVCA #0.0 103/ulNormal0.0-0.1[facility] HospitalComment on above:Performed By: #### CBC #### [facility] [address] [place] [address] Dr. Dante JulesBasophils/100 WBC (Bld)0.5 %Normal0.2-2.0The [facility] Comment on above:Performed By: #### CBC #### [facility] [address] [place] [address] Dr. Dante Gr #0.2 103/ulNormal0.0-0.7The [facility] Medical CenterComment on above: Performed By: #### CBC #### [facility] [address] [place] [address] Dr. Dante Arroyoosinophils/100 WBC (Bld)2.5 %Normal0.9-7.0The [facility] Comment on above:Performed By: #### CBC #### [facility] [address] [place] [address] Dr. Dante Arroyorythrocyte distribution width (RBC) [Ratio]13.3 %Hbjxtr52.0-15.0 The [facility] Medical CenterComment on above:Performed By: #### CBC #### [facility] [address] [place] [address] Dr. Dante JulesHematocrit (Bld) [Volume fraction]36.9 %Critically low42.0-54.0 The [facility] Medical CenterComment on above:Performed By: #### CBC #### [facility] [address] [place] [address] Dr. Dante JulesHemoglobin (Bld) [Mass/Vol]12.0 g/dLCritically low14.0-18.0The [facility] CenterComment on above:Performed By: #### CBC #### [facility] [address] [place] [address] Dr. Dante Peraza #0.01 10e3/ulNormal0.00-0.03The [facility] CenterComment on above:Performed By: #### CBC #### [facility] [address] [place] [address] Dr. Dante Peraza %0.2 %Normal0.0-0.5The [facility] Medical CenterComment on above: Performed By: #### CBC #### [facility] [address] [place] [address] Dr. Dante Rawls #1.4 103/ulNormal1.2-3.8The [facility] CenterComment on above:Performed By: #### CBC #### [facility] [address] [place] [address] Dr. Dante Vernonhocytes/100 WBC (Bld)24.4 %Iflvrd00.5-60.0The [facility] CenterComment on above:Performed By: #### CBC #### [facility] [address] [place] [address] Dr. Dante Khan DIFF REQNONormalThe [facility] CenterComment on above: Performed By: #### CBC #### [facility] [address] [place] [address] Dr. Dante Herr (RBC) [Entitic mass]29.2 jkWpaefe33.9-34.0The [facility] CenterComment on above:Performed By: #### CBC #### [facility] [address] [place] [address] Dr. Dante Herr (RBC) [Mass/Vol]32.5 g/oSPcipgo82.9-35.2The [facility] CenterComment on above:Performed By: #### CBC #### [facility] [address] [place] [address] Dr. Dante eHrr (RBC) [Entitic vol]89.8 pDDbftej12.0-94.0The [facility] CenterComment on above:Performed By: #### CBC #### [facility] [address] [place] [address] Dr. Dante Terrazas #0.5 103/ulNormal0.3-0.8The [facility] CenterComment on above:Performed By: #### CBC #### [facility] [address] [place] [address] Dr. Dante Alexanderocytes/100 WBC (Bld)8.3 %Normal1.7-12.0The [facility] Comment on above:Performed By: #### CBC #### [facility] [address] [place] [address] Dr. Dante Vega #3.8 103/ulNormal1.4-6.5The [facility] CenterComment on above:Performed By: #### CBC #### [facility] [address] [place] [address] Dr. Dante Wallaceutrophils/100 WBC (Bld)64.1 %Vbbwcv81.0-75.0The [facility] CenterComment on above:Performed By: #### CBC #### [facility] [address] [place] [address] Dr. Dante JulesPlatelet mean volume (Bld) [Entitic vol]10.1 fLNormal9.5-13.5The [facility] on above:Performed By: #### CBC #### [facility] [address] [place] [address] Dr. Dante JulesPLT161 103/uaSlheva149-121Yaz [facility] on above: Performed By: #### CBC #### [facility] [address] [place] [address] Dr. Dante JulesRBC4.11 106/ulCritically low4.70-6.10The [facility] CenterComformerly [facility] on above:Performed By: #### CBC #### [facility] [address] [place] [address] Dr. Dante JulesWBC5.9 103/ulNormal4.0-11.0The [facility] CenterComment on above: Performed By: #### CBC #### [facility] [address] [place] [address] Dr. Dante JulesPROF 14(COMP METB)on 34-92-7434Ajhadmi [Mass/Vol]3.0 g/dL Critically low3.5-5.0The [facility] on above:Performed By: #### CMP #### [facility] [address] [place] [address] Dr. Dante JulesAlbumin/Globulin [Mass ratio]0.7 {ratio}NormalThe [facility] Medical CenterComment on above:Performed By: #### CMP #### [facility] [address] [address] [address] Dante Sanchez [Catalytic activity/Vol]91 U/OZywlff59-643Vxv [facility] CenterComment on above:Performed By: #### CMP #### [facility] [address] [address] [address] Dante LyonsT [Catalytic activity/Vol]30 U/ZExhumt98-31Xgn [facility] CenterComment on above:Performed By: #### CMP #### [facility] [address] [address] [address] Dante Sanzon gap [Moles/Vol]10.1 mmol/LNormalThe [facility] Comment on above:Performed By: #### CMP #### [facility] [address] [place] [address] Dr. Dante JulesAST [Catalytic activity/Vol]18 U/DIbvvec93-07Teh [facility] CenterComment on above:Performed By: #### CMP #### [facility] [address] [place] [address] Dr. Dante JulesBilirubin [Mass/Vol]0.2 mg/dLNormal0.2-1.3TOhioHealth Berger Hospital Comment on above:Performed By: #### CMP #### [facility] [address] [place] [address] Dr. Dante JulesCalcium [Mass/Vol]8.7 mg/dLNormal8.4-10.2[facility] Comment on above:Performed By: #### CMP #### [facility] [address] [place] [address] Dr. Dante JulesChloride [Moles/Vol]103 mmol/PFqvhfb86-617Vcp [facility] Comment on above:Performed By: #### CMP #### [facility] [address] [place] [address] Dr. Dante JulesCO2 [Moles/Vol]25.8 mmol/DCnxvfh46.0-30.0The [facility] Comment on above:Performed By: #### CMP #### [facility] [address] [address] [address] Dante JulesCreatinine [Mass/Vol]1.31 mg/dLCritically high0.66-1.25The [facility] CenterComment on above:Performed By: #### CMP #### [facility] [address] [address] [address] Howell ChangEGFR-AF LIBYAN>60Normal>=60The [facility] CenterComment on above:Performed By: #### CMP #### [facility] [address] [address] [address] Dante ArroyoGFR-NON AF BZQGJSNE21 mL/min/1.64d8Pcbhvepznt low>=60The [facility] CenterComment on above:Performed By: #### CMP #### [facility] [address] [place] [address] Dr. Dante JulesGlobulin (S) [Mass/Vol]4.2 g/dLNormalThe [facility] CenterComment on above:Performed By: #### CMP #### [facility] [address] [place] [address] Dr. Dante JulesGlucose [Mass/Vol]132 mg/dLCritically duny59-542LutMercy Health Fairfield HospitalComment on above:Performed By: #### CMP #### [facility] [address] [place] [address] Dr. Dante JulesPotassium [Moles/Vol]3.9 mmol/LNormal3.4-5.0[facility] Comment on above:Performed By: #### CMP #### [facility] [address] [place] [address] Dr. Dante JulesProtein [Mass/Vol]7.2 g/dLNormal6.1-8.2The [facility] Comment on above:Performed By: #### CMP #### [facility] [address] [address] [address] Dante JulesSodium [Moles/Vol]135 mmol/LCritically esr260-617Cav [facility] CenterComment on above:Performed By: #### CMP #### [facility] [address] [place] [address] Dr. Dante JulesUrea nitrogen [Mass/Vol]14.0 mg/dLNormal9.0-20.0The [facility] CenterComment on above:Performed By: #### CMP #### [facility] [address] [place] [address] Dr. Dante JulesUrea nitrogen/Creatinine [Mass ratio]10.7 mg/mgNormalThe [facility] CenterComment on above:Performed By: #### CMP #### [facility] [address] [place] [address] Dr. Dante JulesCovid-19 PCR (CVDTBH)on 42-75-6351VIJE-CoV-2 (COVID-19) RNA PATRICIA+probe Ql (Unsp spec)Not detectedNormalNOT DETECTEDThe [facility] Comment on above:Result Comment: When diagnostic testing is negative, the possibility of a false negative should be considered in the context of a patient's recent exposures and the presence of clinical signs and symptoms consistent with SARS-CoV-2. This test is not yet approved or cleared by the [place] Food and Drug Administration (FDA). This test was developed by [employer], [place], [place]. The performance characteristics of this test were validated by [facility]. The results are not intended to be used as the sole means for clinical diagnosis or patient management decisions. The [facility] is authorized under Clinical Laboratory Improvement Amendments (CLIA) to perform high- complexity testing.Performed By: #### CVDTBH #### [facility] [address] [place] [address] Dr. Dante Jules Vital Signs Date TimeVital SignValuePerforming LiucezxfxBjlmyxwz64-61-7637 10:38-0400Body .4 cmSteven Rusher DPM Work Phone: [facility] HospitalEyuovlfoen76-49-5335 10:38-0400Body mass index (BMI) [Ratio]29.29 kg/u9Cemkby Rusher DPM Work Phone: [phone] HospitalRvpldnsety95-71-9694 10:38-0400Body mziewq24.04 kgSteven [facility] Hospitalher DPM Work Phone: [phone] [place], [place] 7651110-07-2025 15:14-0400Body .4 cmSteven Rusher DPM Work Phone: [phone] [place], [place] 7651110-07-2025 15:14-0400Body mass index (BMI) [Ratio]29.29 kg/p1Mpbrox Rusher DPM Work Phone: [phone] [place], [place] 765[address]10-07-2025 15:14-0400Body lesncr15.04 kgSteven Rusher DPM Work Phone: [phone] [place], [place] 765[address]9-22-2025 10:33-0400Body jcdyzr365.4 cmSteven Rusher DPM Work Phone: [phone] [place], [place] 765[address]9-22-2025 10:33-0400Body mass index (BMI) [Ratio]29.29 kg/k1Scalyr Rusher DPM Work Phone: [phone] [place], [place] 765[address]9-22-2025 10:33-0400Body bxpije93.04 kgSteven Rusher DPM Work Phone: [phone] [place], [place] [address]65[address]9-08-2025 10:40-0400Body fjsonl671.5 cmDennis Furlong DO Work Phone: [facility]09-08-2025 10:40-0400Body mass index (BMI) [Ratio]29.81 kg/n2Vmetwz Furlong DO Work Phone: [facility] [employer] Lcnciy32-22-7801 10:40-0400Body phtajwuaxsx04.3 [degF]Paul Furlong DO Work Phone: [facility]09-08-2025 10:40-0400Body bainko60.94 kgDennis Furlong DO Work Phone: [facility]09-08-2025 10:40-0400Diastolic blood mm[Hg]Paul Furlong DO Work Phone: [facility]09-08-2025 10:40-0400Heart rate 73 /minDennis Furlong DO Work Phone: [facility]09-08-2025 10:40-0400 Respiratory rate18 /minDennis Jenniferlong DO Work Phone: [facility]09-08-2025 10:40-1692NiA1% (BldA) [Mass fraction]98 %Paul Rodriguezlong DO Work Phone: [facility]09-08-2025 10:40-0400Systolic blood mm[Hg]Paul Rodriguezlong DO Work Phone: [facility]08-28-2025 11:06-0400Body eojdqb735.4 cmSteven Rusher DPM Work Phone: [phone] [place], [place] 765[address]8-28-2025 11:06-0400Body mass index (BMI) [Ratio]29.29 kg/a8Jwzkfw Rusher DPM Work Phone: [phone] [place], [place] 765[address]8-28-2025 11:06-0400Body knelth80.04 kgSteven Rusher DPM Work Phone: [phone] [place], [place] 765[address]8-07-2025 10:59-0400Body ysmrdv180.4 cmSteven Rusher DPM Work Phone: [phone] [place], [place] 765[address]8-07-2025 10:59-0400Body mass index (BMI) [Ratio]29.29 kg/l3Sbnwgf Rusher DPM Work Phone: [phone] [place], [place] 765[address]8-07-2025 10:59-0400Body gfovls86.04 kgSteven Rusher DPM Work Phone: [phone] [place], [place] 765[address]7-23-2025 10:48-0400Body .4 cmSteven Rusher DPM Work Phone: [phone] [place], [place] 765[address]7-23-2025 10:48-0400Body mass index (BMI) [Ratio]29.29 kg/e3Csqpal Rusher DPM Work Phone: [phone] [place], [place] 765[address]7-23-2025 10:48-0400Body prsikl70.04 kgSteven Rusher DPM Work Phone: [phone] [place], [place] 7651107-14-2025 08:51-0400Body .4 cmSteven Rusher DPM Work Phone: [phone] [place], [place] 765[address]7-14-2025 08:51-0400Body mass index (BMI) [Ratio]29.29 kg/d4Ujrwfh Rusher DPM Work Phone: [phone] [place], [place] 765[address]7-14-2025 08:51-0400Body nbbgik19.04 kgSteven Rusher DPM Work Phone: [phone] [place], [place] 765[address]7-02-2025 10:40-0400Body sikomd046.4 cmSteven Rusher DPM Work Phone: [phone] [place], [place] 765[address]7-02-2025 10:40-0400Body mass index (BMI) [Ratio]29.29 kg/e5Cxyzat Rusher DPM Work Phone: [phone] [place], [place] 765[address]7-02-2025 10:40-0400Body tlawae91.04 kgSteven Rusher DPM Work Phone: [phone] [place], [place] 7651106-20-2025 09:24-0400Body mass index (BMI) [Ratio]29.81 kg/h9Qwftjyb Castteressa HINES-SENIOR RECEPTIONIST Work Phone: [facility]06-20-2025 09:24-0400Body kughxragcuw79.2 [degF]Chapin Cast APRN-SENIOR RECEPTIONIST Work Phone: [facility]06-20-2025 09:24-0400Body onqnpi97.94 kgChapin Castteressa HINES-SENIOR RECEPTIONIST Work Phone: [facility]06-20-2025 09:24-0400Diastolic blood wmsoapwn36 mm[Hg]Chapin Cast APRN-SENIOR RECEPTIONIST Work Phone: [facility]06-20-2025 09:24-0400Heart rate 82 /minChapin Cast APRN-SENIOR RECEPTIONIST Work Phone: [facility]06-20-2025 09:24-0400 Respiratory rate16 /minChapin Cast APRN-SENIOR RECEPTIONIST Work Phone: [facility]06-20-2025 09:24-9033WaV6% (BldA) [Mass fraction]98 %Chapin Cast APRN-SENIOR RECEPTIONIST Work Phone: [facility]06-20-2025 09:24-0400Systolic blood okfzfhrn304 mm[Hg]Chapin Cast APRN-SENIOR RECEPTIONIST Work Phone: [facility]06-11-2025 15:26-0400Body nmlkwa031.4 cmSteven Rusher DPM Work Phone: [phone] [place], [place] 7651106-11-2025 15:26-0400Body mass index (BMI) [Ratio]29.29 kg/n0Xhoobm Rusher DPM Work Phone: [phone] [place], [place] 7651106-11-2025 15:26-0400Body akntnx72.04 kgSteven Rusher DPM Work Phone: [phone] [place], [place] 7651105-15-2025 15:56-0400Body vmytsa426.4 cmSteven Rusher DPM Work Phone: [phone] [place], [place] 7651105-15-2025 15:56-0400Body mass index (BMI) [Ratio]29.29 kg/t7Wgobzf Rusher DPM Work Phone: [phone] [place], [place] 765[address]5-15-2025 15:56-0400Body temperature 98.49 [degF]Maria Luisa Rusher DPM Work Phone: [phone] [place], [place] 765[address]5-15-2025 15:56-0400Body epxvaq44.04 kgSteven Rusher DPM Work Phone: [phone] [place], [place] [address]65[address]5-09-2025 09:32-0400Body mass index (BMI) [Ratio]29.63 kg/q1LvftstyChapin Cast APRN-SENIOR RECEPTIONIST Work Phone: [facility]05-09-2025 09:32-0400Body tazaonrqqqo83.2 [degF]Chapin Cast APRN-SENIOR RECEPTIONIST Work Phone: [facility]05-09-2025 09:32-0400Body .48 kgChapin Cast APRN-SENIOR RECEPTIONIST Work Phone: [facility]05-09-2025 09:32-0400Diastolic blood mpkxijys57 mm[Hg]Chapin Cast APRN-SENIOR RECEPTIONIST Work Phone: [facility]05-09-2025 09:32-0400Heart rate 78 /minChapin Cast APRN-SENIOR RECEPTIONIST Work Phone: [facility]05-09-2025 09:32-0400 Respiratory rate20 /minChapin Cast APRN-SENIOR RECEPTIONIST Work Phone: [facility]05-09-2025 09:32-2155PnK8% (BldA) [Mass fraction]98 %Chapin Cast APRN-SENIOR RECEPTIONIST Work Phone: [facility]05-09-2025 09:32-0400Systolic blood ikkgxyos837 mm[Hg]Chapin Cast APRN-SENIOR RECEPTIONIST Work Phone: [facility]04-24-2025 15:39-0400Body phdozk806.4 cmSteven Rusher DPM Work Phone: [phone] [place], [place] [address]Yzkpwbdzmu12-87-2248 15:39-0400Body mass index (BMI) [Ratio]29.29 kg/b4Knnten Rusher DPM Work Phone: [phone] [place], [place] [address]Cdcokctvtj03-20-5701 15:39-0400Body cddisy35.04 kgSteven Rusher DPM Work Phone: [phone] [place], [place] [address]Tokfeuahey79-25-1004 10:46-0400Body azslst328.4 cmSteven Rusher DPM Work Phone: [phone] HospitalXfihopwnlz44-16-2275 10:46-0400Body mass index (BMI) [Ratio]29.29 kg/c6Tuutlgjourdan Wagner DPM Work Phone: [facility] HospitalZtqpdelbpq69-37-1360 10:46-0400Body ehxdtv60.04 kgStevjourdan Salazarher DPM Work Phone: [facility] HospitalIjwakfomvv97-02-9111 10:28-0400Diastolic blood qdbpqgli88 mm[Hg]Chapin Cast TABLE KEEPER-C Work Phone: [phone]03-17-2025 10:28-0400 Systolic blood zqymafhk978 mm[Hg]Chapin Cast TABLE KEEPER-C Work Phone: [phone]03-17-2025 10:27-0400 Body fektlr287.1 cmValerie Cast TABLE KEEPER-C Work Phone: [phone] [place], [place] 2915403-17-2025 10:27-0400 Body mass index (BMI) [Ratio]17.9 kg/f4Zzfwiai Cast TABLE KEEPER-C Work Phone: [phone])092-[address] [place], [place] 2915403-17-2025 10:27-0400 Body zkcmonwzwsy32.3 [degF]Chapin Cast TABLE KEEPER-C Work Phone: [phone])329-[address] [place], [place] 2915403-17-2025 10:27-0400 Body eywhdw40.98 kgViridinaarie Cast TABLE KEEPER-C Work Phone: [phone]03-17-2025 10:27-0400 Heart rate88 /minViridianarie Cast TABLE KEEPER-C Work Phone: [phone]03-17-2025 10:27-0400 Respiratory rate18 /minViridianarie Cast TABLE KEEPER-C Work Phone: [phone])265-[address] [place], [place] 2915403-17-2025 10:27-0400 SaO2% (BldA) [Mass fraction]97 %Chapin Cast TABLE KEEPER-C Work Phone: [phone]02-17-2025 13:50-0500 Body lvmjyz220.4 cmSteven Bernard DPM Work Phone: [facility]0099 13:50-0500Body mass index (BMI) [Ratio]29.29 kg/f4Jpufvt Rusher DPM Work Phone: [facility] HospitalSbwphqiamu50-06-8545 13:50-0500Body xqdall96.04 kgSteven Martinher DPM Work Phone: [facility] HospitalLpuhlktsvq38-83-8053 12:36-0500Body mass index (BMI) [Ratio]29.06 kg/b8OujqednChapin Cast SOAP TENDER-SENIOR RECEPTIONIST Work Phone: [facility]02-14-2025 12:36-0500Body hqwvirunbqt13.71 [degF]Chapin Cast SOAP TENDER-SENIOR RECEPTIONIST Work Phone: [facility]02-14-2025 12:36-0500Body .08 kgChapin Cast SOAP TENDER-SENIOR RECEPTIONIST Work Phone: [facility]02-14-2025 12:36-0500Diastolic blood ctwyobsu23 mm[Hg]Chapin Cast SOAP TENDER-SENIOR RECEPTIONIST Work Phone: [facility]02-14-2025 12:36-0500Heart rate 83 /minChapin Cast APRN-SENIOR RECEPTIONIST Work Phone: [facility]02-14-2025 12:36-0500 Respiratory rate17 /minChapin Cast SOAP TENDER-SENIOR RECEPTIONIST Work Phone: [facility]02-14-2025 12:36-8656OjO8% (BldA) [Mass fraction]98 %Chapin Cast SOAP TENDER-SENIOR RECEPTIONIST Work Phone: [facility]02-14-2025 12:36-0500Systolic blood edjxxdat803 mm[Hg]Chapin Cast SOAP TENDER-SENIOR RECEPTIONIST Work Phone: [facility]01-27-2025 10:33-0500Body .4 cmSteven Rusher DPM Work Phone: [phone] [place], [place] 7651101-27-2025 10:33-0500Body mass index (BMI) [Ratio]29.29 kg/t5Gkjezw Rusher DPM Work Phone: [phone])[address] [place], [place] 7651101-27-2025 10:33-0500Body xynixw44.04 kgSteven Rusher DPM Work Phone: [phone] [place], [place] 7651101-08-2025 13:35-0500Body mfwavh629.4 cmSteven Rusher DPM Work Phone: [phone])[address] [place], [place] 7651101-08-2025 13:35-0500Body mass index (BMI) [Ratio]29.29 kg/s8Cdceik Rusher DPM Work Phone: [phone])[address] [place], [place] 7651101-08-2025 13:35-0500Body .04 kgSteven Rusher DPM Work Phone: 1(085)[address] [place], [place] 7651112-19-2024 13:37-0500Body afzcwc716.4 cmSteven Rusher DPM Work Phone: [phone])[address] [place], [place] 7651112-19-2024 13:37-0500Body mass index (BMI) [Ratio]29.29 kg/c9Knofns Rusher DPM Work Phone: [phone])[address] [place], [place] 7651112-19-2024 13:37-0500Body ptutcb97.04 kgSteven Rusher DPM Work Phone: 1(830)[address] [place], [place] 7651112-02-2024 15:47-0500Body bdteyg958.4 cmSteven Rusher DPM Work Phone: [phone])[address] [place], [place] 7651112-02-2024 15:47-0500Body mass index (BMI) [Ratio]29.29 kg/g1Jhqpcc Rusher DPM Work Phone: [phone])[address] [place], [place] 7651112-02-2024 15:47-0500Body lkmejz18.04 kgSteven Rusher DPM Work Phone: 1(326)[address] [place], [place] 7651111-15-2024 12:40-0500Body mass index (BMI) [Ratio]29.45 kg/v6CouleokChapin Cast SOAP TENDER-SENIOR RECEPTIONIST Work Phone: [facility]11-15-2024 12:40-0500Body luijxb25.03 kgChapin Cast SOAP TENDER-SENIOR RECEPTIONIST Work Phone: [facility]11-15-2024 12:40-0500Diastolic blood mm[Hg]Chapin Cast SOAP TENDER-SENIOR RECEPTIONIST Work Phone: [facility]11-15-2024 12:40-0500Heart rate 82 /minChapin Cast SOAP TENDER-SENIOR RECEPTIONIST Work Phone: [facility]11-15-2024 12:40-0500 Respiratory rate16 /minChapin Cast SOAP TENDER-SENIOR RECEPTIONIST Work Phone: [facility]11-15-2024 12:40-6747GcN4% (BldA) [Mass fraction]98 %Chapin Cast APRN-SENIOR RECEPTIONIST Work Phone: [facility]11-15-2024 12:40-0500Systolic blood nhxlzuao939 mm[Hg]Chapin Cast APRN-SENIOR RECEPTIONIST Work Phone: [facility]11-12-2024 09:35-0500Body rtqiwd971.4 cmSteven Rusher DPM Work Phone: [phone] [place], [place] [address]Ztesnvbmlz92-50-7581 09:35-0500Body mass index (BMI) [Ratio]29.29 kg/j3Fosdhr Rusher DPM Work Phone: [phone])[address]11-12-2024 09:35-0500Body zvvvua03.04 kgSteven Rusher DPM Work Phone: [phone])[address]09-20-2024 10:34-0400Body ktudgx095.4 cmSteven Rusher DPM Work Phone: 1(546)909-[address] [place], [place] [address]Ksuejtoett54-89-7964 10:34-0400Body mass index (BMI) [Ratio]29.29 kg/r5Bawhut Rusher DPM Work Phone: 1(793)[address] [place], [place] 7651109-20-2024 10:34-0400Body capzuf25.04 kgSteven Rusher DPM Work Phone: [phone])[address] [place], [place] 7651109-10-2024 14:32-0400Body xnlddo417.4 cmSteven Rusher DPM Work Phone: [phone] [place], [place] 7651109-10-2024 14:32-0400Body mass index (BMI) [Ratio]29.29 kg/j4Nkqmje Rusher DPM Work Phone: [phone])[address] [place], [place] 7651109-10-2024 14:32-0400Body qyykdv20.04 kgSteven Rusher DPM Work Phone: [phone] [place], [place] 7651108-26-2024 12:48-0400Body dtsqib724.4 cmSteven Rusher DPM Work Phone: [phone])[address] [place], [place] 7651108-26-2024 12:48-0400Body mass index (BMI) [Ratio]29.29 kg/d2Bxkfvz Rusher DPM Work Phone: [phone])[address] [place], [place] 7651108-26-2024 12:48-0400Body temperature 98.1 [degF]Maria Luisa Rusher DPM Work Phone: [phone])[address] [place], [place] 7651108-26-2024 12:48-0400Body kljatx90.04 kgSteven Rusher DPM Work Phone: [phone])[address] [place], [place] 7651108-22-2024 13:31-0400Body pekcsy356.94 [facility] 13:31-0400Body mass index (BMI) [Ratio]23.6 kg/g8SzuidtuavMagruder Hospital08-22-2024 13:31-0400Body yyfzvuatnyt20.1 [degF][facility]08-22-2024 13:31-0400Body gwusrd88.69 kgMag[facility] Hospital08-22-2024 13:31-0400Diastolic blood nfptbudr28 mm[Hg][facility]08-22-2024 13:31-0400 Heart rate72 /[facility]08-22-2024 13:31-0400 Respiratory rate18 /[facility]08-22-2024 13:31-0400 SaO2% (BldA) [Mass fraction]97 %[facility]08-22-2024 13:31-0400Systolic blood tkymzhok059 mm[Hg][facility] 10-25-2023 08:31-0400Body mass index (BMI) [Ratio]27.98 kg/i1CmsxzqyChapin Cast SOAP TENDER-SENIOR RECEPTIONIST Work Phone: [facility]06-07-2024 08:31-0400Body .59 [degF]Chapin Cast SOAP TENDER-SENIOR RECEPTIONIST Work Phone: [facility]06-07-2024 08:31-0400Body powtgj40.4 kgChapin Cast SOAP TENDER-SENIOR RECEPTIONIST Work Phone: [facility]06-07-2024 08:31-0400Diastolic blood mtdeqywj73 mm[Hg]Chapin Silvaillo SOAP TENDER-SENIOR RECEPTIONIST Work Phone: [facility]06-07-2024 08:31-0400Heart rate 98 /minChapin Cast SOAP TENDER-SENIOR RECEPTIONIST Work Phone: [facility]06-07-2024 08:31-0400 Respiratory rate21 /minChapin Cast SOAP TENDER-SENIOR RECEPTIONIST Work Phone: [facility]06-07-2024 08:31-0400Systolic blood pabzxvaz119 mm[Hg]Chapin Cast SOAP TENDER-SENIOR RECEPTIONIST Work Phone: [facility]05-17-2024 09:00-0400Body mass index (BMI) [Ratio]27.98 kg/m1BumvqfyChapin Silvaillo SOAP TENDER-SENIOR RECEPTIONIST Work Phone: [facility]05-17-2024 09:00-0400Body czymsgpdbst04.7 [degF]Chapin Cast APRN-SENIOR RECEPTIONIST Work Phone: [facility] [employer] Csyunu04-07-3647 09:00-0400Body tepvww00.4 kgChapin Cast APRN-SENIOR RECEPTIONIST Work Phone: [facility]05-17-2024 09:00-0400Diastolic blood oypzftyd01 mm[Hg]Chapin Cast APRN-SENIOR RECEPTIONIST Work Phone: [facility]05-17-2024 09:00-0400Heart rate 72 /minChapin Cast APRN-SENIOR RECEPTIONIST Work Phone: [facility] [employer] Qrpuzg66-69-2368 09:00-0400 Respiratory rate20 /minChapin Cast APRN-SENIOR RECEPTIONIST Work Phone: [facility]05-17-2024 09:00-3874AcB3% (BldA) [Mass fraction]98 %Chapin Cast APRN-SENIOR RECEPTIONIST Work Phone: [facility]05-17-2024 09:00-0400Systolic blood vbtivenc700 mm[Hg]Chapin Cast SOAP TENDER-SENIOR RECEPTIONIST Work Phone: [facility] [employer] Ayapvk06-00-2409 09:07-0500Body mass index (BMI) [Ratio]28.9 kg/c1DdxeycnChapin Cast APRN-SENIOR RECEPTIONIST Work Phone: [facility]02-29-2024 09:07-0500Body pssdakqlgjc34 [degF]Chapin Cast APRN-SENIOR RECEPTIONIST Work Phone: [facility]02-29-2024 09:07-0500Body .67 kgChapin Cast APRN-SENIOR RECEPTIONIST Work Phone: [facility]02-29-2024 09:07-0500Diastolic blood yvlylfmj23 mm[Hg]Chapin Cast SOAP TENDER-SENIOR RECEPTIONIST Work Phone: [facility]02-29-2024 09:07-0500Heart rate 78 /minChapin Cast APRN-SENIOR RECEPTIONIST Work Phone: [facility]02-29-2024 09:07-0500 Respiratory rate23 /minChapin Cast APRN-SENIOR RECEPTIONIST Work Phone: [facility]02-29-2024 09:07-0500Systolic blood izkardrx078 mm[Hg]Chapin Cast APRN-SENIOR RECEPTIONIST Work Phone: [facility] Encounters Encounter DateEncounter TypeCare ProviderFacilityStart: 03-17-2025 End: 94-21-6381Linecv flowsheetSteven A Rusher DPM Work Phone: noLumiFoldMalone PodiatryStart: 03-17-2025 End: 62-41-9921Bmzckv flowsheetSteven A Rusher DPM Work Phone: noLumiFoldMalone PodiatryStart: 03-17-2025 End: 33-91-6284Oxdtbka encounter procedureSteven A Rusher DPM Work Phone: noLumiFoldMalone PodiatryComment on above:Stage II pressure ulcer of right heel (CMS-HCC) (Primary Dx); Hereditary sensory-motor neuropathy, type I; Flaccid paraplegia, incomplete, at lumbar level (HCC); Lumbar spina bifida without hydrocephalus (HCC)Start: 03-17-2025 End: 04-88-4858trirulhfbyWUTGZH A RUSHERNot AvailableStart: 03-10-2025 End: 44-19-3727GmiuewVdczov [facility] [facility] Phys[facility] Internal Medicine - Family MedicineComment on above:Anxiety due to invasive procedure; Impulse control disorder; Intellectual disabilitySuprapubic catheter (CMS-HCC) (Primary Dx)Start: 03-04-2025 End: 94-42-9096Hevkurwkv encounterNicole Jayashree [facility] Phys[facility] Internal Medicine - Family [facility] Centertart: 03-02-2025 End: 60-80-0708NinnsaThmpdsu J Segun ZAIDIN-SENIOR RECEPTIONIST Work Phone: [facility] - Family MedicineComment on above:Osteoarthritis of multiple joints, unspecified osteoarthritis typeStart: 02-23-2025 End: 08-69-6092Wqpucms encounter procedureSteven A Rusher DPM Work Phone: [facility] PodiatryComment on above:Stage II pressure ulcer of right heel (CMS-HCC) (Primary Dx); Hereditary sensory-motor neuropathy, type I; Flaccid paraplegia, incomplete, at lumbar level (HCC); Lumbar spina bifida without hydrocephalus (HCC)Start: 02-23-2025 End: 25-01-5039qyorsxgttyOFTPYY A RUSHERNot AvailableStart: 02-23-2025 End: 70-00-2885Xhuonn flowsheetSteven A Rusher DPM Work Phone: [facility] PodiatryStart: 02-23-2025 End: 08-52-9002Shgvef flowsheetSteven A Rusher DPM Work Phone: [facility] PodiatryStart: 02-08-2025 End: 00-84-5021Jtwtno flowsheetSteven A Rusher DPM Work Phone: [facility] PodiatryStart: 02-08-2025 End: 76-29-7046Uxdebe flowsheetSteven A Rusher DPM Work Phone: [facility] PodiatryStart: 02-08-2025 End: 15-67-9712Ehrlhfl encounter procedureSteven A Rusher DPM Work Phone: noSa[facility] PodiatryComment on above:Stage II pressure ulcer of right heel (CMS-HCC) (Primary Dx); Hereditary sensory-motor neuropathy, type I; Flaccid paraplegia, incomplete, at lumbar level (HCC); Lumbar spina bifida without hydrocephalus (HCC)Start: 02-08-2025 End: 35-01-5283wegoznbvdrTUSZBJ A RUSHERNot AvailableStart: 02-02-2025 End: 51-29-0897ugzyjidhnwMetmdexDarlene Palacios MD Work Phone: [facility] Genito-Urinary SurgeonsComment on above:Spastic neurogenic bladder (Primary Dx); Suprapubic catheter ([facility]); Urinary tract infection associated with cystostomy catheter, sequelaStart: 01-26-2025 End: 30-52-7637SguagrDjnirqyTiffany Cast APRN-SENIOR RECEPTIONIST Work Phone: [facility] Internal Medicine - Family MedicineComment on above:Pressure ulcer of right foot, stage 1Start: 01-25-2025 End: 10-83-7161Kgvpzh outpatient visit 25 minutesMemorial Hospital Centraljordy Raymond Chatom DO Work Phone: [facility] Internal Medicine - Family MedicineComment on above:Mixed hyperlipidemia (Primary Dx); Benign hypertension with stage 3a chronic kidney disease ([facility]-HCC); Primary hypertension; Intellectual disability; Impulse control disorder; Aggressive behavior; Suprapubic catheter ([facility]); Spina bifida without hydrocephalus, unspecified spinal region ([facility]); OverweightStart: 01-25-2025 End: 61-81-0417jqtmbgleslRZJSAL [facility] PPGStart: 01-19-2025 End: 22-86-1393qvewwrlkxaVTAN J [facility] Centertart: 01-14-2025 End: 08-22-8894Kimwao flowsheetSteven A Rusher DPM Work Phone: no[facility] PodiatryStart: 01-14-2025 End: 32-96-1061Hplmbs flowsheetSteven A Rusher DPM Work Phone: [facility] PodiatryStart: 01-14-2025 End: 42-12-7759Jaufzqb encounter procedureSteven A Rusher DPM Work Phone: noSa[facility] PodiatryComment on above:Stage II pressure ulcer of right heel ([facility]-HCC) (Primary Dx); Hereditary sensory-motor neuropathy, type I; Flaccid paraplegia, incomplete, at lumbar level (HCC); Lumbar spina bifida without hydrocephalus (HCC)Start: 01-14-2025 End: 33-12-9305voghridnkpKOHBQA A RUSHERNot AvailableStart: 12-28-2024 End: 87-06-0442qycxnhqtxgMwmcnmaKaryn Mills MD Work Phone: [facility] Genito-Urinary SurgeonsComment on above:Suprapubic catheter (CMS-HCC) (Primary Dx)Start: 12-24-2024 End: 17-73-3353Ozlbgk flowsheetSteven A Rusher DPM Work Phone: noSa[facility] PodiatryStart: 12-24-2024 End: 15-46-0258Rpzvgn flowsheetSteven A Rusher DPM Work Phone: noSa[facility] PodiatryStart: 12-24-2024 End: 84-48-7529Fhgmrus encounter procedureSteven A Rusher DPM Work Phone: noSa[facility] PodiatryComment on above:Stage II pressure ulcer of right heel (CMS-HCC) (Primary Dx); Hereditary sensory-motor neuropathy, type I; Flaccid paraplegia, incomplete, at lumbar level (HCC); Lumbar spina bifida without hydrocephalus (HCC)Start: 12-24-2024 End: 06-01-4364wrydupamyhTWVLNJ A RUSHERNot AvailableStart: 12-09-2024 End: 12-18-0917Dmslbx flowsheetSteven A Rusher DPM Work Phone: noms PODIATRYStart: 12-09-2024 End: 15-68-3614Rwmyhd flowsheetSteven A Rusher DPM Work Phone: noms PODIATRYStart: 12-09-2024 End: 57-57-5280Behynyf encounter procedureSteven A Rusher DPM Work Phone: noms PODIATRYComment on above:Stage II pressure ulcer of right heel (CMS-HCC) (Primary Dx); Hereditary sensory-motor neuropathy, type I; Flaccid paraplegia, incomplete, at lumbar level (HCC); Lumbar spina bifida without hydrocephalus (HCC)Spastic neurogenic bladder (Primary Dx)Chronic constipationStart: 12-09-2024 End: 94-72-6262jlyxxfywmlJOJHCQ A RUSHERNot AvailableStart: 12-07-2024 End: 16-31-9310Jzwrkf-up encounterPaul Block DO Work Phone: [facility] - [facility] MidtownComment on above:Multiple labsStart: 11-30-2024 End: 23-50-6806Totzyo flowsheetSteven A Rusher DPM Work Phone: NOFU PODIATRYStart: 11-30-2024 End: 53-52-7749Zwvljg flowsheetSteven A Rusher DPM Work Phone: NOQG PODIATRYStart: 11-30-2024 End: 96-09-0484Mntnzzt encounter procedureSteven A Rusher DPM Work Phone: noms PODIATRYComment on above:Dermatophytosis of nail (Primary Dx); Dystrophic nail; Hereditary sensory-motor neuropathy, type I; Lumbar spina bifida without hydrocephalus (HCC)Start: 11-30-2024 End: 14-17-4492bbzxyoixifBOXOMD A RUSHERNot AvailableStart: 11-20-2024 End: 53-59-3954IloiluIhcxhgpTiffany RATLIFF Work Phone: [facility] Hospitaltart: 11-18-2024 End: 30-56-1178Hvkupf flowsheetSteven A Rusher DPM Work Phone: noms PODIATRYStart: 11-18-2024 End: 54-04-1393Tyxzyy flowsheetSteven A Rusher DPM Work Phone: noms PODIATRYStart: 11-18-2024 End: 57-70-9005Zsamzku encounter procedureSteven A Rusher DPM Work Phone: noms PODIATRYComment on above:Stage II pressure ulcer of right heel (CMS-HCC) (Primary Dx); Hereditary sensory-motor neuropathy, type I; Lumbar spina bifida without hydrocephalus (HCC); Flaccid paraplegia, incomplete, at lumbar level (HCC)Start: 11-18-2024 End: 33-94-6207tuduwttbftWPXZDC A RUSHERNot AvailableStart: 11-17-2024 End: 06-13-4444ydpgvuwpmjYSNDEMM G SCHUSTERAtrium Health [facility] PPG Start: 11-17-2024 End: 13-78-6449Tiponeob SupportGisela Palacios MD Work Phone: [facility] Physicians Genito-Urinary SurgeonsComment on above:Suprapubic catheter (CMS-HCC) (Primary Dx)Start: 11-06-2024 End: 21-91-2262vsngqbxzzgJodjego J Castillo APRN-SENIOR RECEPTIONIST Work Phone: [facility] Phys[facility] Internal Medicine - Family [facility] Centertart: 11-06-2024 End: 13-64-9557Bpkyuzb encounter procedureValejudi Cast APRN-SENIOR RECEPTIONIST Work Phone: [facility] Physicians Internal Medicine - Family MedicineComment on above:Medicare annual wellness visit, subsequent (Primary Dx) Start: 10-28-2024 End: 50-69-2717Jvirokb encounter procedureSteven A Rusher DPM Work Phone: noms PODIATRYComment on above:Stage II pressure ulcer of right heel (CMS/HCC) (Primary Dx); Hereditary sensory-motor neuropathy, type I; Lumbar spina bifida without hydrocephalus (CMS/HCC); Flaccid paraplegia, incomplete, at lumbar level (CMS/HCC)Start: 10-28-2024 End: 82-14-0189kdedzehiuqLBFSMB A RUSHERNot AvailableStart: 10-28-2024 End: 97-22-9397Dwwfwl flowsheetSteven A Rusher DPM Work Phone: noms PODIATRYStart: 10-28-2024 End: 91-48-5626Wlcnsm flowsheetSteven A Rusher DPM Work Phone: noms PODIATRYStart: 10-13-2024 End: 48-01-6157Avthayhx SupportGisela Palacios MD Work Phone: [facility] Physicians Genito-Urinary SurgeonsComment on above:Spastic neurogenic bladder (Primary Dx)Start: 10-13-2024 End: 87-53-1209kdvrekqxneHSESVQE G [facility] P[facility] Start: 10-13-2024 End: 66-28-0451vvtaijvkcfNGEG J [facility] BARBERTON CAMPUSGABRIELAUniversity Hospitals Parma Medical Centertart: 10-01-2024 End: 05-69-9499jengxyuqkvMMTDFW A RUSHERNot AvailableStart: 10-01-2024 End: 37-33-9129Skdenic encounter procedureSteven Francesca Wagner DPM Work Phone: noms PODIATRYComment on above:Stage II pressure ulcer of right heel (CMS/HCC) (Primary Dx); Hereditary sensory-motor neuropathy, type I; Lumbar spina bifida without hydrocephalus (CMS/HCC); Flaccid paraplegia, incomplete, at lumbar level (CMS/HCC)Start: 09-25-2024 End: 32-88-3731Zxprouqygy Levon Cast APRN-SENIOR RECEPTIONIST Work Phone: [facility] Internal Medicine - Family MedicineComment on above:Primary hypertension (Primary Dx); Impulse control disorder; Intellectual disability; Mixed hyperlipidemia; Chronic constipationStart: 09-15-2024 End: 80-74-1163Tqoewgtp SupportGisela Palacios MD Work Phone: [facility] Physicians Genito-Urinary SurgeonsComment on above:Spastic neurogenic bladder (Primary Dx)Start: 09-15-2024 End: 42-66-3905vovkvjwvsmCVQJYDX G [facility] P[facility] Start: 09-10-2024 End: 89-22-6555Rzmogpc encounter procedureStephillip Wagner DPM Work Phone: noms PODIATRYComment on above:Stage II pressure ulcer of right heel (CMS/HCC) (Primary Dx); Hereditary sensory-motor neuropathy, type I; Lumbar spina bifida without hydrocephalus (CMS/HCC); Flaccid paraplegia, incomplete, at lumbar level (CMS/HCC)Start: 09-10-2024 End: 56-74-3651gnyboknovnEEVNTD A RUSHERNot AvailableStart: 09-10-2024 End: 33-57-7094Scmmww flowsheetSteven A Rusher DPM Work Phone: NOII PODIATRYStart: 09-10-2024 End: 22-42-8089Uxkdnb flowsheetSteven A Rusher DPM Work Phone: NORD PODIATRYStart: 08-19-2024 End: 45-92-5444Fxyiyv flowsheetSteven A Rusher DPM Work Phone: NOMS PODIATRYStart: 08-19-2024 End: 59-99-5072Lwkkdg flowsheetSteven A Rusher DPM Work Phone: NOOE PODIATRYStart: 08-19-2024 End: 36-56-9964Jnfwlky encounter procedureSteven A Rusher DPM Work Phone: NOTO PODIATRYComment on above:Stage II pressure ulcer of right heel (CMS/HCC) (Primary Dx); Hereditary sensory-motor neuropathy, type I; Lumbar spina bifida without hydrocephalus (CMS/HCC); Flaccid paraplegia, incomplete, at lumbar level (CMS/HCC)Start: 08-19-2024 End: 53-65-2749hvcrferzczWAFCJI A RUSHERNot AvailableStart: 08-18-2024 End: 38-07-3564iklwqjhojnSkmyiunElliott Palacios MD Work Phone: [facility] Genito-Urinary SurgeonsComment on above:Suprapubic catheter (CMS-HCC) (Primary Dx)Start: 08-10-2024 End: 15-61-9142AjxvtnLwlndmfTiffany Cast APRN-SENIOR RECEPTIONIST Work Phone: [facility] Internal Medicine - Family MedicineStart: 08-03-2024 End: 03-81-4542riygnaeewuKuubyrx J Castillo TABLE KEEPERYaminiC Work Phone: [facility] Work Phone: Start: 08-03-2024 End: 10-58-1606Fydymbp encounter procedureValerie Cast TABLE KEEPER-C Work Phone: [facility] Work Phone: Start: 07-27-2024 End: 12-74-9103grlkmzqpldDHGASO A RUSHERNot AvailableStart: 07-21-2024 End: 81-49-3196Tkudqqtb SupportGisela Palacios MD Work Phone: [facility] Genito-Urinary SurgeonsComment on above:Suprapubic catheter (CMS-HCC) (Primary Dx)Start: 07-21-2024 End: 32-47-7481rzwgbphoqqMIIPVVU G SCHUSTERWashington [facility] Start: 07-14-2024 End: 80-58-8610yosmhkfhmrYDJE [facility] Hospitaltart: 07-06-2024 End: 85-61-2538Hkmhwz flowsheetSteven A Rusher DPM Work Phone: noms PODIATRYStart: 07-06-2024 End: 89-50-3839Qkzrvi flowsheetSteven A Rusher DPM Work Phone: noms PODIATRYStart: 07-06-2024 End: 09-17-6662Rthechr encounter procedureSteven A Rusher DPM Work Phone: noms PODIATRYComment on above:Stage II pressure ulcer of right heel (CMS/HCC) (Primary Dx); Hereditary sensory-motor neuropathy, type I; Lumbar spina bifida without hydrocephalus (CMS/HCC); Flaccid paraplegia, incomplete, at lumbar level (CMS/HCC)Start: 07-06-2024 End: 17-88-6323qblgmgxzvpNENFAF A RUSHERNot AvailableStart: 07-03-2024 End: 04-05-8589Iasrqsbysl CareChapin Cast APRN-SENIOR RECEPTIONIST Work Phone: [facility] - Family MedicineComment on above:Primary hypertension (Primary Dx); Chronic constipation; Intellectual disability; Impulse control disorder; Mixed hyperlipidemiaStart: 06-29-2024 End: 65-40-6537Xstjdjvv SupportAnnette Mills MD Work Phone: [facility]ito-Urinary SurgeonsComment on above:Suprapubic catheter (CMS-HCC) (Primary Dx)Start: 06-29-2024 End: 14-56-4579sxzptafqhzEVNKKBY G RASHIDBerger Hospital Ambulatory PPGStart: 06-15-2024 End: 44-55-6218Xkvqei flowsheetSteven A Rusher DPM Work Phone: [facility]ODIATRYStart: 06-15-2024 End: 45-30-5110Ffhmps flowsheetSteven A Rusher DPM Work Phone: NOHD PODIATRYStart: 06-15-2024 End: 51-32-9115Jphvtsh encounter procedureSteven A Rusher DPM Work Phone: noms PODIATRYComment on above:Stage II pressure ulcer of right heel (CMS/HCC) (Primary Dx); Hereditary sensory-motor neuropathy, type I; Lumbar spina bifida without hydrocephalus (CMS/HCC); Flaccid paraplegia, incomplete, at lumbar level (CMS/HCC)Start: 06-15-2024 End: 84-72-9837fizcqegkdcGZIMWB A RUSHERNot AvailableStart: 06-09-2024 End: 38-49-9243hadqoktovsRvojhaa G Schuster MD Work Phone: [facility] Genito-Urinary SurgeonsComment on above:Spastic neurogenic bladder (Primary Dx)Start: 05-27-2024 End: 00-26-0596Hvurme flowsheetSteven A Rusher DPM Work Phone: NOES PODIATRYStart: 05-27-2024 End: 92-25-4989Upznvn flowsheetSteven A Rusher DPM Work Phone: NOWS PODIATRYStart: 05-27-2024 End: 45-22-5695Yfzdvta encounter procedureSteven A Rusher DPM Work Phone: noms PODIATRYComment on above:Stage II pressure ulcer of right heel (CMS/HCC) (Primary Dx); Hereditary sensory-motor neuropathy, type I; Lumbar spina bifida without hydrocephalus (CMS/HCC); Flaccid paraplegia, incomplete, at lumbar level (CMS/HCC)Start: 05-27-2024 End: 68-29-4467inbakdvzpbCRDTPG A RUSHERNot AvailableStart: 05-25-2024 End: 86-93-3814Cavjbw Kika Cast APRN-SENIOR RECEPTIONIST Work Phone: [facility] Hospitaltart: 05-22-2024 End: 38-34-9031FikosvFlohmqqTiffany Cast APRN-SENIOR RECEPTIONIST Work Phone: [facility] MedicineComment on above:Anxiety due to invasive procedure; Impulse control disorder; Intellectual disabilityStart: 05-08-2024 End: 39-57-6222PvbpcaOuwymneTiffany Cast APRN-SENIOR RECEPTIONIST Work Phone: [facility] MedicineStart: 05-07-2024 End: 62-78-7735Xyqrba flowsheetSteven A Rusher DPM Work Phone: noms PODIATRYStart: 05-07-2024 End: 52-68-7107Vrkxpn flowsheetSteven A Rusher DPM Work Phone: noms PODIATRYStart: 05-07-2024 End: 88-08-3875Efnlotz encounter procedureSteven A Rusher DPM Work Phone: noms PODIATRYComment on above:Stage II pressure ulcer of right heel (CMS/HCC) (Primary Dx); Hereditary sensory-motor neuropathy, type I; Lumbar spina bifida without hydrocephalus (CMS/HCC); Flaccid paraplegia, incomplete, at lumbar level (CMS/HCC)Start: 05-07-2024 End: 59-86-5939bnwummbxjeJKUSFY A RUSHERNot AvailableStart: 04-20-2024 End: 26-84-7091Hqgjcat encounter procedureSteven A Rusher DPM Work Phone: NOMS PODIATRYComment on above:Stage II pressure ulcer of right heel (CMS/HCC) (Primary Dx); Hereditary sensory-motor neuropathy, type I; Lumbar spina bifida without hydrocephalus (CMS/HCC); Flaccid paraplegia, incomplete, at lumbar level (CMS/HCC)Start: 04-20-2024 End: 82-75-1326abyaszeedkBGSIXL A RUSHERNot AvailableStart: 04-20-2024 End: 56-98-2578Wzawzz flowsheetSteven A Rusher DPM Work Phone: noms PODIATRYStart: 04-20-2024 End: 92-21-4891Bhudtw flowsheetSteven A Rusher DPM Work Phone: noms PODIATRYStart: 04-14-2024 End: 62-83-3881Fjsoasrg SupportGisela Palacios MD Work Phone: [facility] Genito-Urinary SurgeonsComment on above:Suprapubic catheter (CMS-HCC) (Primary Dx)Start: 04-14-2024 End: 46-92-3696wlmkqejhbaYRQCKEU G SCHUSTERWashington [facility] Start: 04-08-2024 End: 11-27-0846bbdqvylbhqLMFEKBQ J CASTILLOTriHealth Bethesda Butler Hospitaltart: 04-08-2024 End: 21-19-0980Fgiutkif SupportValejudi Cast SOAP TENDER-SENIOR RECEPTIONIST Work Phone: [facility] Medicine - Family MedicineComment on above:Benign essential HTN (Primary Dx); Need for hepatitis C screening testStart: 04-03-2024 End: 67-91-2370Amycupbe SupportValejudi Cast SOAP TENDER-SENIOR RECEPTIONIST Work Phone: [facility] Medicine - Family MedicineComment on above:Encounter for immunization (Primary Dx)Benign essential HTN (Primary Dx); Chronic constipation; Impulse control disorder; Intellectual disability; Mixed hyperlipidemiaStart: 03-31-2024 End: 15-60-6121Mwjitv flowsheetSteven A Rusher DPM Work Phone: noMS PODIATRYStart: 03-31-2024 End: 01-43-0387Dcwurj flowsheetSteven A Rusher DPM Work Phone: NOMS PODIATRYStart: 03-31-2024 End: 72-99-4024Sfmxxpv encounter procedureSteven A Rusher DPM Work Phone: NOMC PODIATRYComment on above:Stage II pressure ulcer of right heel (CMS/HCC) (Primary Dx); Hereditary sensory-motor neuropathy, type I; Lumbar spina bifida without hydrocephalus (CMS/HCC); Flaccid paraplegia, incomplete, at lumbar level (CMS/HCC)Start: 03-31-2024 End: 50-88-2682ccqxqerqloFMAGHO A RUSHERNot AvailableStart: 03-27-2024 End: 44-90-1383EnprmzGqmxvbnMazin RATLIFF Work Phone: [facility] - Family MedicineStart: 03-25-2024 End: 73-08-5932pzgbvxbxxwJarnugw G Rashid MD Work Phone: [facility] Genito-Urinary SurgeonsComment on above:Spastic neurogenic bladder (Primary Dx)Start: 03-12-2024 End: 76-19-6235pcbybcgcplSRNO J [facility] Children's Medical Centertart: 03-10-2024 End: 71-22-7203wnwnibmkhrYczncozElliott Palacios MD Work Phone: [facility] Genito-Urinary SurgeonsComment on above:Suprapubic catheter (CMS-HCC) (Primary Dx)Start: 02-28-2024 End: 70-73-8323Vspdim flowsheetSteven A Rusher DPM Work Phone: NOMS PODIATRYStart: 02-28-2024 End: 26-15-2217Ylqbvm flowsheetSteven A Rusher DPM Work Phone: NOMS PODIATRYStart: 02-28-2024 End: 50-92-3181Ijnwkvnub encounterMichelle Audrey RMAProMedica Physicians Genito- Urinary SurgeonsStart: 02-28-2024 End: 08-82-6012Gbbegsb encounter procedureSteven A Rusher DPM Work Phone: noms PODIATRYComment on above:Stage II pressure ulcer of right heel (CMS/HCC) (Primary Dx); Hereditary sensory-motor neuropathy, type I; Lumbar spina bifida without hydrocephalus (CMS/HCC); Flaccid paraplegia, incomplete, at lumbar level (CMS/HCC)Start: 02-25-2024 End: 89-36-7910ikhltgxhfnJjpugeeElliott Palacios MD Work Phone: [facility] Genito-Urinary SurgeonsComment on above:Suprapubic catheter (CMS-HCC) (Primary Dx)Start: 02-11-2024 End: 63-70-7699MzsovqFffqynlTiffany Cast APRN-SENIOR RECEPTIONIST Work Phone: [facility] Medicine - Family MedicineComment on above:Osteoarthritis of multiple joints, unspecified osteoarthritis typeStart: 02-07-2024 End: 00-64-2798Swcgcm flowsheetSteven A Rusher DPM Work Phone: noms PODIATRYStart: 02-07-2024 End: 06-03-2115Ruaisa flowsheetSteven A Rusher DPM Work Phone: noms PODIATRYStart: 02-07-2024 End: 06-59-1251Scgawot encounter procedureSteven A Rusher DPM Work Phone: noms PODIATRYComment on above:Stage II pressure ulcer of right heel (CMS/HCC) (Primary Dx); Hereditary sensory-motor neuropathy, type I; Lumbar spina bifida without hydrocephalus (CMS/HCC); Flaccid paraplegia, incomplete, at lumbar level (CMS/HCC)Start: 01-28-2024 End: 16-68-7650Imosjfe encounter procedureSteven A Rusher DPM Work Phone: noms PODIATRYComment on above:Stage II pressure ulcer of right heel (CMS/HCC) (Primary Dx); Hereditary sensory-motor neuropathy, type I; Lumbar spina bifida without hydrocephalus (CMS/HCC); Flaccid paraplegia, incomplete, at lumbar level (CMS/HCC)Start: 01-28-2024 End: 30-10-8476Mflfds flowsheetSteven A Rusher DPM Work Phone: noms PODIATRYStart: 01-28-2024 End: 31-74-3932Mbhxby flowsheetSteven A Rusher DPM Work Phone: noms PODIATRYStart: 01-27-2024 End: 17-51-2546lubpllvnniWapodheKaryn Mills MD Work Phone: [facility] Genito-Urinary SurgeonsComment on above:Suprapubic catheter ([facility]-HCC) (Primary Dx)Start: 01-13-2024 End: 76-74-5621Wguptl flowsheetSteven A Rusher DPM Work Phone: noms PODIATRYStart: 01-13-2024 End: 52-17-2003Yoqaji flowsheetSteven A Rusher DPM Work Phone: noms PODIATRYStart: 01-13-2024 End: 57-52-5180Sacfnzg encounter procedureSteven A Rusher DPM Work Phone: noms PODIATRYComment on above:Stage II pressure ulcer of right heel (CMS/HCC) (Primary Dx); Hereditary sensory-motor neuropathy, type I; Lumbar spina bifida without hydrocephalus (CMS/HCC); Flaccid paraplegia, incomplete, at lumbar level (CMS/HCC)Start: 01-10-2024 End: 30-74-9846Tkyrsh outpatient visit 15 minutesChapin RATLIFF Work Phone: [facility] - Family MedicineComment on above:COVID-19 (Primary Dx)Start: 01-09-2024 End: 43-93-3626unsbviceitPfvblrxcfWright-Pat[facility] Work Phone: Start: 01-09-2024 End: 05-20-5351Avcuczg encounter procedureUn[facility] Samir Work Phone: Start: 01-09-2024 End: 97-80-6776feiljcdyhaBcuoziktoWright-Patterson Medical Center Work Phone: Start: 01-09-2024 End: 61-50-9272Mhvnfal encounter procedureUnc Health [facility] Work Phone: Start: 01-08-2024 End: 56-38-7460SiznysRkmyjkd J Castillo SOAP TENDER-SENIOR RECEPTIONIST Work Phone: [facility] Medicine - Family MedicineComment on above:Pressure ulcer of right foot, stage 1Start: 01-07-2024 End: 98-37-1269xiorhxwdihQxrbgsuDarlene Palacios MD Work Phone: [facility] Genito-Urinary SurgeonsComment on above:Suprapubic catheter ([facility]-HCC) (Primary Dx)Start: 01-03-2024 End: 96-46-8411PpgebsBwqqeim J Castillo SOAP TENDER-SENIOR RECEPTIONIST Work Phone: [facility] - Family MedicineStart: 12-31-2023 End: 07-36-1606MfpzbySbrplfh Chaney SOAP TENDER-SENIOR RECEPTIONIST Work Phone: [facility] Genito-Urinary SurgeonsStart: 12-30-2023 End: 70-85-3015LqdgliCbrjxee J Castillo SOAP TENDER-SENIOR RECEPTIONIST Work Phone: [facility] Medicine - Family MedicineComment on above:Chronic constipationStart: 12-10-2023 End: 29-76-0460snhdkqmlceOyjqdzbDarlene Palacios MD Work Phone: [facility] Genito-Urinary SurgeonsComment on above:Suprapubic catheter ([facility]-HCC) (Primary Dx)Start: 11-29-2023 End: 27-44-1309HacovdEdjsfzp J Castillo SOAP TENDER-SENIOR RECEPTIONIST Work Phone: [facility] - Family MedicineStart: 11-12-2023 End: 81-56-8452jyrusoalnkOndqvzfDarlene Palacios MD Work Phone: [facility] Genito-Urinary SurgeonsComment on above:Suprapubic catheter (CMS-HCC) (Primary Dx)Start: 11-06-2023 End: 29-90-1192azryvpjeroMQOWESE J CASTILLOAvita Health System Galion HospitalComment on above:Mixed hyperlipidemia (Primary Dx); Primary hypertension; Screening for diabetes mellitus; Low ferritinStart: 10-25-2023 End: 68-11-1787byumzumtvmDumafmg J Castillo SOAP TENDER-SENIOR RECEPTIONIST Work Phone: [facility] - [facility] MedicineStart: 10-25-2023 End: 79-38-3695Lpelcof encounter procedureChapin Cast SOAP TENDER-SENIOR RECEPTIONIST Work Phone: [facility] Internal Medicine - Family MedicineComment on above:Medicare annual wellness visit, subsequent (Primary Dx) Start: 10-15-2023 End: 24-11-5713synqubrwqlAzuepvmDarlene Palacios MD Work Phone: [facility] Genito-Urinary SurgeonsComment on above:Suprapubic catheter (CMS-HCC) (Primary Dx)Start: 10-04-2023 End: 69-12-2030Ymbsdqbrjj CareChapin Cast SOAP TENDER-SENIOR RECEPTIONIST Work Phone: [facility] Internal Medicine - Family MedicineComment on above:Primary hypertension (Primary Dx); Mixed hyperlipidemia; Intellectual disability; Impulse control disorder in adult; Chronic constipationStart: 09-10-2023 End: 13-54-3923ufwmqpeufaXncnekjDarlene Palacios MD Work Phone: [facility] Genito-Urinary SurgeonsComment on above:Suprapubic catheter (CMS-HCC) (Primary Dx)Start: 08-13-2023 End: 19-10-3194kihephczgyVrxlavfDarlene Palacios MD Work Phone: [facility] Genito-Urinary SurgeonsComment on above:Spastic neurogenic bladder (Primary Dx)Start: 18-93-8123Gahrlcehs encounterJactatyana DumasPAsaf Physicians Genito-Urinary SurgeonsStart: 07-09-2023 End: 02-02-0921jkzkfpiwuzVnsdwljDarlene Palacios MD Work Phone: [facility] Genito-Urinary SurgeonsComment on above:Suprapubic catheter (CMS-HCC) (Primary Dx)Start: 28-96-5955XpyrcdXoaoyoaMazin RATLIFF Work Phone: [facility] Internal Medicine - Family MedicineComment on above:Anxiety due to invasive procedure; Impulse control disorder; Intellectual disabilityFalls, sequela (Primary Dx); Osteoarthritis of multiple joints, unspecified osteoarthritis type; Primary hypertension; Mixed hyperlipidemia; Chronic constipation; Impulse control disorderStart: 89-35-1429Gfkkjm encounterMetroHealthStart: 06-11-2023 End: 32-41-8882umexqaevhpHaediymDarlene Palacios MD Work Phone: [facility] Genito-Urinary SurgeonsComment on above:Suprapubic catheter (CMS-HCC) (Primary Dx)Start: 11-30-2022 End: 81-45-7628aryxnvvtopZZHUPBV PROVIDERFacility:METROHealthStart: 11-30-2022 End: 56-74-5455Esvpusn encounter procedureElitremayne Alvarado DDS Work Phone: [facility] DentistryStart: 10-31-2021 End: 85-87-9244hpgutgrbwiJYKJWMZ CASTILLOFacility:K3Aeind: 10-24-2021 End: 16-75-7201lslllbbhqlLEAWQST CASTILLOFacility:Y4Tcwhn: 09-29-2021 End: 25-69-6551Aqxncrn encounter Olesya Nguyen DDS Work Phone: [facility] DentistryStart: 47-39-3975Cqwpkbcbq encounterMary Anderson RNMetroHealth Pre Surgical EvaluationComment on above: Pre-surgical Evaluation (ANESTHESIA ATTESTATION FOR DENTAL SURGERY SCANNED IN [facility] )Start: 63-78-8932Latmotuhc encounterPamireyabianca Rolon RNMetroHealth Pre Surgical EvaluationComment on above:Pre-surgical Evaluation (DD adult dental restorations 09/29 under [place] at [place]. OSH H+P under senior media director. Request to main for anesthesia consent - see future encounter. PSE RN spoke to [facility] confirmed NPO except clears until, [place] address, and 1100 arrival time. )Start: 81-72-0208Myptziwee encounterRadha Kingarchie RNMetroHealth Pre Surgical EvaluationComment on above:Pre-surgical Evaluation (Pre-op COVID testing not needed)Pre-surgical Evaluation (Outside records received)Start: 79-46-9659Xfrrnm encounterMetroHealthStart: 08-16-2021 End: 18-39-0959tnbrbppyfsUTORTFQ CASTILLOFacility:N4Rzvgl: 03-13-2021 End: 53-74-4043jzxirqnhpsPODGESI CASTILLOFacility:E8Ftfzx: 03-01-2021 End: 91-50-8225wfizaddvtrJIWBDWS CASTILLOFacility:H1 Procedures DateProcedureProcedure DetailPerforming ClinicianStart: 45-55-2287Yltjr depression screening assessmentDennis Furlong DO Work Phone: Start: 25-06-4174Gtzaj X-ray of right handValerie Segun TABLE KEEPER-C Work Phone: Start: 79-41-9680Kogij depression screening assessment Chapin Cast SOAP TENDER-SENIOR RECEPTIONIST Work Phone: Start: 16-47-1770Xfhdw depression screening assessment Gisela Palacios MD Work Phone: Start: 30-07-0415AeyzztnyqdwZvpavv Rusher DPM Work Phone: Start: 90-65-0927WSZ screeningVALERIE CASTILLOComment on above:Performed By: #### INDERJIT, LEX #### [facility] [address] [place] [address] Dr. Dante JulesStart: 85-56-6905Axksqtqyrew Plan of Treatment DateCare ActivityDetailAuthorStart: 85-28-8143PWmK/Tdap/Td Vaccines (7 - Td or Tdap)DTaP/Tdap/Td Vaccines (7 - Td or Tdap)[facility] HealthcareStart: 08-13-2032 Tetanus vaccinationTetanus (Td or Tdap) BoosterMetroHealthStart: 02-16-2032 Screening for malignant neoplasm of colonNOMS HealthcareStart: 12-17-2026 Screening for malignant neoplasm of colonMetroHealthStart: 56-91-5162Vtivm panel CholesterolMetroHealthStart: 66-89-4036Hzszb BMI ScreeningAdult BMI Screening [facility] SystemStart: 40-87-6079Yjnjwaocuh ScreeningDepression Screening [facility] SystemStart: 82-75-2193Imlhdql ScreeningTobacco Screening [facility] Regionaltart: 37-37-9278Wnkvh BMI ScreeningAdult BMI Screening [facility] SystemStart: 19-53-4105Kobumaf ScreeningTobacco Screening [facility] Regionaltart: 20-07-9833Xquunrv ScreeningTobacco Screening [facility] SystemStart: 18-16-0964Iynkv BMI ScreeningAdult BMI Screening [facility] SystemStart: 48-55-1712Dvpybxd ScreeningTobacco Screening [facility] SystemStart: 11-89-8488Ammuo BMI ScreeningAdult BMI Screening [facility] Regionaltart: 06-03-2025 End: 54-43-3177Widskgt encounter woxhjbkix46/15/2026 3:00 PM EST Office Visit [facility] [address] [place] [address] Lilia Molina, SOAP TENDER-SENIOR RECEPTIONIST [address], [address] [address] [facility] - Family MedicineStart: 14-63-5366Hsuocol Screening Tobacco ScreeningAC[facility] Health SystemStart: 23-90-4493Fvnazvm Screening Tobacco ScreeningMemorial [facility] SystemStart: 04-06-2025 End: 13-12-6647Mejrkrj encounter kzsmqehsx39/18/2025 10:45 AM EST Office Visit [facility] [address] [place] [phone] Maria Luisa Wagner DPM [address] [place] [address] NOMInez Malone PodiatryStart: 30-99-3248Vlpms BMI ScreeningAdult BMI ScreeningMem[facility] SystemStart: 03-31-2025 End: 80-02-3576afkuwgqkmf92/12/2025 9:00 AM EST Support Visit [facility] [address] [place] [address] [place] [address] Fatemeh Fuentes PA [address] [place] [address] [phone] [facility] Genito-Urinary SurgeonsStart: 03-17-2025 End: 53-01-9049Ghrtdmo encounter procedureNOCT Malone PodiatryComment on above: ArrivedStart: 24-90-6248Ewctmvv ScreeningTobacco ScreeningMemorial [facility] SystemStart: 03-10-2025 End: 10-61-1532VNXYUJIBFR BLADDER INSERT SUPRAPUBIC CATHETERASPIRATION BLADDER INSERT SUPRAPUBIC CATHETER Procedures Routine Suprapubic catheter ([facility]) Expected: 03/10/2025, Expires: 03/10/2026[facility] Work Phone: Comment on above:Expected: 03/10/2025, Expires: 03/10/2026Start: 03-10-2025 End: 79-75-2948vpfkbtyzaz31/22/2025 11:00 AM EDT Support Visit [facility] [address] [place] [address] [place] [address] Fatemeh Fuentes PA [address] [place] [address] [phone] [facility]-Urinary SurgeonsStart: 02-23-2025 End: 42-84-0720Yejvhaz encounter procedureNOMS Iraheta PodiatryComment on above: ArrivedStart: 80-59-2889Nzrpqcehm vaccinationInfluenza VaccineMemorial Health System [facility] SystemComment on above:Postponed from 01/18/2025 (Vaccine Not Available)Start: 02-08-2025 End: 02-81-6413Dirkmmx encounter zshzxzrep69/22/2025 10:30 AM EDT Office Visit [facility] [address] [place] [phone] Maria Luisa Wagner DPM [address] [place], [place] [phone] ArrivedDAGOBERTO Iraheta PodiatryComment on above:ArrivedStart: 02-04-2025 End: 50-34-3647Hfotuji encounter wlbayadea41/18/2025 10:45 AM EDT Office Visit [facility] [address] [place] [phone] Maria Luisa Wagner DPM [address] [place], [place] [phone] [facility] PodiatryStart: 02-02-2025 End: 99-18-7269ARWPABEFME BLADDER INSERT SUPRAPUBIC CATHETERASPIRATION BLADDER INSERT SUPRAPUBIC CATHETER Procedures Routine Spastic neurogenic bladder Suprapubic catheter (CMS-HCC) Urinary tract infection associated with cystostomy catheter, sequela Expected: 02/02/2025, Expires: 02/02/2026[facility] Work Phone: Comment on above:Expected: 02/02/2025, Expires: 02/02/2026Start: 02-02-2025 End: 51-32-2149ppfuzbiunv56/16/2025 11:00 AM EDT Support Visit [facility] [address] [facility] A [place] [address] Gisela Palacios MD [facility] [place] [address] [facility] Gen[facility]- Urinary SurgeonsStart: 01-25-2025 End: 56-54-3050Ugnower encounter lbcjzyzgu99/08/2025 10:45 AM EDT Office Visit [facility] [address] [facility] [place] [address] Paul Block, DO [address], [facility] [place] [address] [facility] - Family MedicineStart: 75-21-2064REESE-19 Vaccine ( season)COVID-19 Vaccine ( season)[facility] Start: 57-87-5306UDZPS-19 Vaccine ( season)COVID-19 Vaccine ( season)[facility]Start: 10-82-6333Izqesswge vaccinationProProtestant Hospital SystemStart: 01-14-2025 End: 14-36-2600Zxtxddt encounter procedureNOMS Malone PodiatryComment on above: ArrivedStart: 34-25-4324Enllwad ScreeningTobacco ScreeningMemorial Health [facility] SystemStart: 12-28-2024 End: 82-39-2668MECDAEKFBI BLADDER INSERT SUPRAPUBIC CATHETERASPIRATION BLADDER INSERT SUPRAPUBIC CATHETER Procedures Routine Suprapubic catheter ([facility]) Expected: 12/28/2024, Expires: 12/28/2025[facility] Work Phone: Comment on above:Expected: 12/28/2024, Expires: 12/28/2025Start: 12-28-2024 End: 22-99-7024cqekfoiurdPwhHnhllj Physicians Genito-Urinary SurgeonsStart: 12-24-2024 End: 51-56-4935Wyaylae encounter procedureNOMS FH PODIATRYComment on above: ArrivedStart: 12-09-2024 End: 32-83-9947Fxvoesu encounter procedureNOMS FH PODIATRYComment on above: ArrivedStart: 11-30-2024 End: 43-88-0009Hbrlbia encounter procedureNOMS FH PODIATRYComment on above: ArrivedStart: 11-18-2024 End: 95-58-6684Uwknubz encounter procedureNOMS FH PODIATRYComment on above: ArrivedStart: 11-17-2024 End: 25-72-9554NPNSSMHVRG BLADDER INSERT SUPRAPUBIC CATHETERASPIRATION BLADDER INSERT SUPRAPUBIC CATHETER Procedures Routine Suprapubic catheter ([facility]) Expected: 11/17/2024, Expires: 11/17/2025[facility] Work Phone: Comment on above:Expected: 11/17/2024, Expires: 11/17/2025Start: 11-17-2024 End: 58-01-1161Pyexvmwa Bsigick7111/17/2024 10:30 AM EDT Clinical Support [facility] [address] [place] [address] [address] [place] [address] Gisela Palacios MD [address] [place] [address] [facility]Ur[facility] SurgeonsStart: 10-28-2024 End: 74-07-8878Irbjeep encounter procedureNOMS PODIATRYComment on above: ArrivedStart: 70-35-7297Bklkihh ScreeningTobacco ScreeningProTuscarawas Hospitalca [facility] SystemStart: 23-63-8782Wosyn BMI ScreeningAdult BMI ScreeningProTuscarawas Hospitalca Health SystemStart: 10-27-0469Oimzbxashl ScreeningDepression ScreeningProTuscarawas Hospitalca [facility] SystemStart: 10-13-2024 End: 43-97-7219LCMKBJLSDQ BLADDER INSERT SUPRAPUBIC CATHETERASPIRATION BLADDER INSERT SUPRAPUBIC CATHETER Procedures Routine Spastic neurogenic bladder Expected: 10/13/2024, Expires: 10/13/2025[facility] Work Phone: Comment on above:Expected: 10/13/2024, Expires: 10/13/2025Start: 10-13-2024 End: 60-84-2910Ptryousf Jcgoyev7010/13/2024 10:30 AM EDT Clinical Support [facility] [address] [facility] [place] [phone] Gisela Palacios MD [address] [place] [address] [facility]Ur[facility] SurgeonsStart: 10-01-2024 End: 11-77-2943Ityjmzp encounter khucoytpn23/15/2025 4:00 PM EDT Office Visit [facility] [address] [place] [phone] Maria Luisa Wagner DPM [address] [place], [place] [phone] [facility] PODIATRYStart: 09-15-2024 End: 44-98-7411DCOBRVIAMD BLADDER INSERT SUPRAPUBIC CATHETERASPIRATION BLADDER INSERT SUPRAPUBIC CATHETER Procedures Routine Spastic neurogenic bladder Expected: 09/15/2024, Expires: 09/15/2025[facility] Work Phone: Comment on above:Expected: 09/15/2024, Expires: 09/15/2025Start: 09-10-2024 End: 34-38-5255Syhifza encounter ixxdljnls66/24/2025 3:30 PM EDT Office Visit [facility] [address] [place] [address] Maria Luisa Wagner DPM [address] [place], [place] [phone] ArrivedK[facility] PODIATRYComment on above:ArrivedStart: 09-09-2024 End: 48-39-6255Sgrouvqv SupportProMedica Physicians [facility] Start: 08-19-2024 End: 56-78-4750Uqvbpxd encounter ifagrtgpb54/02/2025 10:45 AM EDT Office Visit [facility] [address] [facility] [place] [address] Maria Luisa Wagner DPM [address] [place], [place] [phone] ArrivedNOMS PODIATRYComment on above:ArrivedStart: 08-18-2024 End: 81-47-7059GIXBWDNIRW BLADDER INSERT SUPRAPUBIC CATHETERASPIRATION BLADDER INSERT SUPRAPUBIC CATHETER Procedures Routine Suprapubic catheter ([facility]) Expected: 08/18/2024, Expires: 08/18/2025[facility] Work Phone: Comment on above:Expected: 08/18/2024, Expires: 08/18/2025Start: 08-18-2024 End: 48-42-0723kocejewsat37/01/2025 9:00 AM EDT Support Visit [facility] [address] [place] [address] [place] [phone] Gisela Palacios MD [address] [place] [address] [facility]ito- Urinary SurgeonsStart: 07-27-2024 End: 48-95-4067Ymrbdhk encounter jzokgkwpd87/10/2025 10:45 AM EDT Office Visit [facility] [address] [place] [address] Maria Luisa Wagner DPM [address] [place], [place] [phone] [facility]ODIATRYStart: 07-21-2024 End: 12-91-4031JIAEDBEATG BLADDER INSERT SUPRAPUBIC CATHETERASPIRATION BLADDER INSERT SUPRAPUBIC CATHETER Procedures Routine Suprapubic catheter ([facility]) Expected: 07/21/2024, Expires: 07/21/2025[facility] Work Phone: Comment on above:Expected: 07/21/2024, Expires: 07/21/2025Start: 07-21-2024 End: 30-85-7828Nqmchzio Zagmxpn4407/21/2024 9:00 AM EST Clinical Support [facility] [address] [place] [address] [place] [address] Gisela Palacios MD [address] [place] [address] [facility] Urinary SurgeonsStart: 78-20-1886Ioiuc BMI ScreeningAdult BMI ScreeningMemorial Health System [facility] SystemStart: 94-86-8512Puzrjwm ScreeningTobacco ScreeningProCleveland Clinic Fairview Hospitaltart: 07-06-2024 End: 16-16-7479Ufefuil encounter eqlodypju54/17/2025 1:45 PM EST Office Visit [facility] [address] [place] [address] Maria Luisa Wagner DPM [address] [place] [address] ArrivedNOMS PODIATRYComment on above:ArrivedStart: 07-06-2024 End: 08-66-0391Akunaur encounter xqawoifkt23/17/2025 8:45 AM EST Office Visit [facility] [address] [place] [address] Maria Luisa Wagner DPViktoria [address] [place] [address] [facility] PODIATRYStart: 06-30-2024 End: 03-95-3678Nsvjtglq Raihrkx7606/30/2024 10:00 AM EST Clinical Support [facility] [address] [place] [address] [address] [facility] [phone] Gisela Palacios MD [address] [place] [address] [facility]ito-Urinary SurgeonsStart: 06-29-2024 End: 36-84-5606TTAJBGGYEP BLADDER INSERT SUPRAPUBIC CATHETERASPIRATION BLADDER INSERT SUPRAPUBIC CATHETER Procedures Routine Suprapubic catheter ([facility]) Expected: 06/29/2024, Expires: 06/29/2025[facility] Work Phone: Comment on above:Expected: 06/29/2024, Expires: 06/29/2025Start: 06-15-2024 End: 65-35-7107Lduqhvy encounter procedureNOMS PODIATRYComment on above: ArrivedStart: 06-09-2024 End: 52-44-5732KZJZLBONRR BLADDER INSERT SUPRAPUBIC CATHETERASPIRATION BLADDER INSERT SUPRAPUBIC CATHETER Procedures Routine Spastic neurogenic bladder Expected: 06/09/2024, Expires: 06/09/2025[facility] Work Phone: Comment on above:Expected: 06/09/2024, Expires: 06/09/2025Start: 06-09-2024 End: 32-09-1746jqfyyrwfgn98/21/2025 10:30 AM EST Support Visit [facility] [address] [place] [address] Gisela Palacios MD [address] [place] [address] [facility]ito- Urinary SurgeonsStart: 05-27-2024 End: 87-96-8755Bfpqnsl encounter procedureNOMS PODIATRYComment on above: ArrivedStart: 05-25-2024 End: 43-79-8323rinuzitaan01/06/2025 9:30 AM EST Support Visit [facility] [address] [place] [address] Silverio Almanzar Jr., MD [address] [place] [address] [facility] Urinary SurgeonsStart: 05-07-2024 End: 34-27-3472Zmsluyq encounter procedureNOMS FH PODIATRYComment on above: ArrivedStart: 04-20-2024 End: 18-18-6075Opgyzzh encounter procedureNOMS FH PODIATRYComment on above: ArrivedStart: 04-14-2024 End: 77-29-7369UITATBHLFB BLADDER INSERT SUPRAPUBIC CATHETERASPIRATION BLADDER INSERT SUPRAPUBIC CATHETER Procedures Routine Suprapubic catheter ([facility]) Expected: 04/14/2024, Expires: 04/14/2025[facility] Work Phone: Comment on above:Expected: 04/14/2024, Expires: 04/14/2025Start: 04-14-2024 End: 96-81-5349Aueowtxv SupportProMedica Physicians [facility] Sur[facility] Start: 04-08-2024 End: 53-59-2300Cjemyvdb Peuqfih9204/08/2024 8:30 AM EST Clinical Support [facility] [address] [place] [address] [facility] Start: 03-25-2024 End: 36-45-2786EADZAPUBDN BLADDER INSERT SUPRAPUBIC CATHETERASPIRATION BLADDER INSERT SUPRAPUBIC CATHETER Procedures Routine Spastic neurogenic bladder Expected: 03/25/2024, Expires: 03/25/2025[facility] Work Phone: Comment on above:Expected: 03/25/2024, Expires: 03/25/2025Start: 03-25-2024 End: 87-20-7755tmuczsqkgk52/06/2024 10:30 AM EST Support Visit [facility] [address] [place] [address] Annette Mills MD [address] [place] [address] [facility] SurgeonsStart: 03-24-2024 End: 01-30-9163bquzpgwflu55/05/2024 9:00 AM EST Support Visit [facility] [address] [place] [address] [address] [facility] [address] Gisela Palacios MD [address] [place] [address] [facility] SurgeonsStart: 27-20-1832Yctkv BMI ScreeningAdult BMI ScreeningProProtestant Hospital SystemStart: 58-32-6913Lhkobvn ScreeningTobacco ScreeningProProtestant Hospital SystemStart: 03-12-2024 End: 37-67-8998Tvinruo encounter /24/2024 3:30 PM EDT Office Visit [facility] [address] [place] [address] Maria Luisa Wagner DPM [address] [facility] [address] [facility] PODIATRYStart: 02-28-2024 End: 56-45-3889Yxbokye encounter nitjbvoiv78/11/2024 10:30 AM EDT Office Visit [facility] [address] [place] [address] Maria Luisa Wagner DPM [address] [place] [address] LOUIS PODIATRYComment on above:ArrivedStart: 02-25-2024 End: 50-44-5442ZHNDXYWWJC BLADDER INSERT SUPRAPUBIC CATHETERASPIRATION BLADDER INSERT SUPRAPUBIC CATHETER Procedures Routine Suprapubic catheter ([facility]) Expected: 02/25/2024, Expires: 02/24/2025[facility] Work Phone: Comment on above:Expected: 02/25/2024, Expires: 02/24/2025Start: 02-25-2024 End: 58-28-1310byzodumeso79/08/2024 9:00 AM EDT Support Visit [facility] [address] [place] [address] [place] [address] Gisela Palacios MD [address] [place] [address] [facility] Ur[facility] SurgeonsStart: 02-21-2024 End: 76-52-6733Kewncsd encounter snhapdbxd13/04/2024 10:30 AM EDT Office Visit [facility] [address] [place] [address] Maria Luisa Wagner, ELE [address] [place], [place] [address] [facility] PODIATRYStart: 01-28-2024 End: 65-02-8745Prfbbme encounter procedureNOMS PODIATRYComment on above: ArrivedStart: 01-27-2024 End: 96-28-5363TKECEATIZK BLADDER INSERT SUPRAPUBIC CATHETERASPIRATION BLADDER INSERT SUPRAPUBIC CATHETER Procedures Routine Suprapubic catheter ([facility]) Expected: 01/27/2024, Expires: 01/26/2025[facility] Work Phone: Comment on above:Expected: 01/27/2024, Expires: 01/26/2025Start: 01-27-2024 End: 14-51-3576yavpznpbbz01/09/2024 10:30 AM EDT Support Visit [facility] [address] [place] [address] [place] [address] Annette Mills MD [address] [place] [address] [facility] SurgeonsStart: 34-17-4106QFEOT-19 Vaccine ()COVID-19 Vaccine ()[facility] Regionaltart: 55-22-6907DFBHM-19 Vaccine ( season)COVID-19 Vaccine ( season)[facility] Start: 61-86-1828Szmypwlaq vaccinationEastern Missouri State HospitalStart: 01-13-2024 End: 18-02-9394Ruuvqpg encounter cbfvsofzd05/26/2024 12:45 PM EDT Office Visit [facility] [address] [place] [address] Maria Luisa Wagner, DPViktoria [address] [facility] [place], [place] [phone] [facility] PODIATRYComment on above:ArrivedStart: 01-07-2024 End: 62-80-5196ELPJRSGFTK BLADDER INSERT SUPRAPUBIC CATHETERASPIRATION BLADDER INSERT SUPRAPUBIC CATHETER Procedures Routine Suprapubic catheter ([facility]) Expected: 01/07/2024, Expires: 01/06/2025[facility] Work Phone: Comment on above:Expected: 01/07/2024, Expires: 01/06/2025Start: 01-07-2024 End: 72-77-8761hqucpkkygq49/20/2024 12:15 PM EDT Support Visit [facility] [address] [place] [address] [place] [address] Gisela Palacios MD [address] [place] [address] [facility] SurgeonsStart: 12-31-2023 End: 18-72-4279ayuopaojaa30/13/2024 10:15 AM EDT Support Visit [facility] [address] [place] [address] [address] [facility] [address] Gisela Palacios MD [address] [place] [address] [facility] SurgeonsStart: 12-11-2023 End: 77-87-3992CMYMLBZCZY BLADDER INSERT SUPRAPUBIC CATHETERASPIRATION BLADDER INSERT SUPRAPUBIC CATHETER Procedures Routine Suprapubic catheter ([facility]) Expected: 12/11/2023, Expires: 12/10/2024[facility] Work Phone: Comment on above:Expected: 12/11/2023, Expires: 12/10/2024Start: 12-10-2023 End: 38-45-9954hllarbokfk84/23/2024 11:00 AM EDT Support Visit [facility] [address] [place] [address] [place] [address] Gisela Palacios MD [address] [place] [address] [facility] SurgeonsStart: 11-12-2023 End: 21-60-1074JZQEHPNOAI BLADDER INSERT SUPRAPUBIC CATHETERASPIRATION BLADDER INSERT SUPRAPUBIC CATHETER Procedures Routine Suprapubic catheter ([facility]) Expected: 11/12/2023, Expires: 11/11/2024[facility] Work Phone: Comment on above:Expected: 11/12/2023, Expires: 11/11/2024Start: 11-12-2023 End: 90-98-0772cvwqqtnmst10/25/2024 10:00 AM EDT Support Visit [facility] [address] [place] [address] [place] [address] Gisela Palacios MD [address] [place] [address] [facility] SurgeonsStart: 11-06-2023 End: 76-73-6270Rqgwxdug Laaghmp4211/06/2023 8:00 AM EDT Clinical Support [facility] [address] [place] [address] [facility]Ikru[facility] Start: 15-89-3652Wtsmu BMI Follow Up PlanAdult BMI Follow Up PlanMemorial Health System [facility] SystemStart: 04-08-9198Bjerdgzzlp ScreeningDepression ScreeningProCleveland Clinic Fairview Hospitaltart: 10-15-2023 End: 21-55-0455EFOAKKVVAA BLADDER INSERT SUPRAPUBIC CATHETERASPIRATION BLADDER INSERT SUPRAPUBIC CATHETER Procedures Routine Suprapubic catheter ([facility]) Expected: 10/15/2023, Expires: 10/14/2024[facility] Work Phone: Comment on above:Expected: 10/15/2023, Expires: 10/14/2024Start: 10-08-2023 End: 59-39-1126waucomcfqu41/21/2024 10:00 AM EDT Support Visit [facility] [address] [place] [address] [address] [place] [address] Gisela Palacios MD [address] [place] [address] [facility] SurgeonsStart: 09-10-2023 End: 44-72-0526MGOUHLUSKJ BLADDER INSERT SUPRAPUBIC CATHETERASPIRATION BLADDER INSERT SUPRAPUBIC CATHETER Procedures Routine Suprapubic catheter ([facility]) Expected: 09/10/2023, Expires: 09/09/2024[facility] Work Phone: Comment on above:Expected: 09/10/2023, Expires: 09/09/2024Start: 09-10-2023 End: 43-99-9559wobeabcwik98/23/2024 9:30 AM EDT Support Visit [facility] [address] [place] [address] [place] [address] Gisela Palacios MD [address] [place] [address] [facility] Ur[facility] SurgeonsStart: 08-13-2023 End: 74-79-1989HJARBOQXRF BLADDER INSERT SUPRAPUBIC CATHETERASPIRATION BLADDER INSERT SUPRAPUBIC CATHETER Procedures Routine Spastic neurogenic bladder Expected: 08/13/2023, Expires: 08/12/2024[facility] Work Phone: Comment on above:Expected: 08/13/2023, Expires: 08/12/2024Start: 08-13-2023 End: 42-00-1049bktzcoswyw32/26/2024 9:30 AM EDT Support Visit [facility] [address] [place], [place] [address] Gisela Palacios MD [address] [place] [address] [facility] Ur[facility] SurgeonsStart: 07-09-2023 End: 01-30-9995PYQZQTWLEQ BLADDER INSERT SUPRAPUBIC CATHETERASPIRATION BLADDER INSERT SUPRAPUBIC CATHETER Procedures Routine Suprapubic catheter ([facility]) Expected: 07/09/2023, Expires: 07/08/2024[facility] Work Phone: Comment on above:Expected: 07/09/2023, Expires: 07/08/2024Start: 07-09-2023 End: 13-07-4211mivngoqzsu84/20/2024 9:30 AM EST Support Visit [facility] [address] [place] [address] Gisela Palacios MD [address] [place] [address] [facility]- Urinary SurgeonsStart: 07-02-2023 End: 28-75-0784gqfimzkmhj23/13/2024 9:30 AM EST Support Visit [facility] [address] [place] [address] Gisela Palacios MD [address] [place] [address] [facility] Ur[facility] SurgeonsStart: 97-42-3692Nyxtseune vaccinationInfluenza Vaccine (#1) [facility]: 72-23-9120KQWBO-19 Vaccine ( season)COVID-19 Vaccine ( season)[facility]Start: 31-20-6939Fowixfwqq vaccination Influenza Vaccine (#1)[facility]Start: 95-70-2222Cfdbj panelCholesterol [facility]Start: 61-23-8736NPW vaccine (optional 60+ years)RSV vaccine (optional 60+ years)[facility]Start: 09-29-2021 End: 91-41-7314Njrcyntma to same day surgery kmifne6409/29/2021 Surgery Ambulatory Surgery Jozef Clayton, DDS [address] [place] [address] DENTAL RESTORATIONSMetroNovant Health Ambulatory SurgeryComment on above:DENTAL RESTORATIONSStart: 09-29-2021 End: 69-44-6242HARYXU RESTORATIONSPHE Surgery CenterStart: 18-61-3503Txgforecpk hospital visit by nbetrwntv60/13/2022 Hospital Encounter Ambulatory Surgery Jozef Clayton, DDS [address] [place] [address] [facility] Ambulatory SurgeryStart: 64-24-8763LIBMF-19 Vaccine (4 - Booster for Moderna series)COVID-19 Vaccine (4 - Booster for Moderna series)[facility]Start: 42-26-7612LNUZE-19 Vaccine (3 - Booster for Moderna series)COVID-19 Vaccine (3 - Booster for Moderna series)[facility] Start: 95-99-0682Hdltcr Wellness Visit (G0439)Annual Wellness Visit (G0439) [facility]Start: 64-01-3781Kinwytbkgyr of occult blood in single stool specimen FITMetroHealthStart: 47-97-3628Hzldgykhv for malignant neoplasm of colon [facility]Start: 60-36-2355Xirmqk wellness visitAnnual Wellness Visit (G0438) [facility]Start: 93-06-9829Xrtws BMI Follow Up PlanAdult BMI Follow Up Plan [facility] SystemStart: 88-20-7219Eypcfcuyk C screeningHepatitis C AntibodyMetroHealthStart: 10-83-1753Bhqfnhf + diphtheria + acellular pertussis vaccine (product)Tdap BoosterMetroHealthStart: 94-79-2257CVW screeningHIV Test [facility]Start: 04-33-0818Npfjwcict for malignant neoplasm of colonNOMS HealthcareBacteria identified in Urine by CultureUrine Culture Microbiology Routine Spastic neurogenic bladder Suprapubic catheter (CMS-HCC) Urinarytract infection associated with cystostomy catheter, sequela 02/02/2025 4:[address] [facility] HospitalManageSocial End: 09-56-0477Tfslu metabolic 2000 panel - Serum or PlasmaBasic Metabolic Panel Lab Routine Benign essential HTN 1 Occurrences starting 04/08/2024 until 04/08[facility] HospitalHealth eVillagesComment on above:1 Occurrences starting 04/08/2024 until 04/08/2025 End: 42-27-2594TAK W Auto Differential panel - BloodCBC auto differential Lab Routine Primary hypertension 1 Occurrences starting 11/06/2023 until 11/05/2024 YovigoComment on above:1 Occurrences starting 11/06/2023 until 11/05/2024 End: 92-57-6346HJB W Auto Differential panel - BloodCBC auto differential Lab Routine Benign essential HTN 1 Occurrences starting 04/08/2024 until 04/08/2025 [employer] Work Phone: Comment on above:1 Occurrences starting 04/08/2024 until 04/08/2025 End: 69-95-4193Tazpihckuamrk metabolic 2000 panel - Serum or PlasmaComprehensive metabolic panel Lab Routine Primary hypertension 1 Occurrences starting 11/06/2023 until 11/05/2024[facility] HospitalHealth eVillagesComment on above:1 Occurrences starting 11/06/2023 until 11/05/2024 End: 61-89-7168Wlaapovnjg A1c/Hemoglobin.total in BloodHemoglobin A1c Lab Routine Screening for diabetes mellitus 1 Occurrences starting 11/06/2023 until 11/06/2024[facility] SystemComment on above:1 Occurrences starting 11/06/2023 until 11/06/2024 End: 76-31-5668Faemduqcg C(HCV) Ab w/ Reflex to PCRHepatitis C(HCV) Ab w/ Reflex to PCR Lab Routine Need for hepatitis C screening test 1 Occurrences starting 04/08/2024 until 04/08/2025[facility] SystemComment on above:1 Occurrences starting 04/08/2024 until 04/08/2025 End: 86-58-4193Vmfx and TIBCIron and TIBC Lab Routine Low ferritin 1 Occurrences starting 11/06/2023 until 11/05/2024[facility] HospitalComment on above:1 Occurrences starting 11/06/2023 until 11/05/2024 End: 50-18-7261Knrff panelLipid panel Lab Routine Mixed hyperlipidemia 1 Occurrences starting 11/06/2023 until 11/05/2024[facility] Work Phone: Comment on above:1 Occurrences starting 11/06/2023 until 11/05/2024 Immunizations Immunization DateImmunizationNotesCare JoromkyeKboqxmza28-97-5600mmvscxhwv, seasonal, injectable, preservative freeValerie Segun SOAP TENDER-SENIOR RECEPTIONIST Work Phone: [facility] HospitalOmpzyi82-31-9860Ffhqibxnhwet, In Clinic,; 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: [Drug or medicament (substance)]Chapin Cast SOAP TENDER-SENIOR RECEPTIONIST Work Phone: [facility] HospitalUzvwua53-06-5998sbxrrnkal virus vaccine, unspecified formulationGisela Palacios MD Work Phone: [facility] HospitalKkttiz72-41-2859ttlifcsvd, injectable, quadrivalent, preservative freeMaria Luisa Wagner DPM Work Phone: [facility] HospitalXdemijeuga23-48-7699dpkjfwlgv virus vaccine, unspecified formulationGisela Palacios MD Work Phone: [facility]03-27-2023tetanus toxoid, reduced diphtheria toxoid, and acellular pertussis vaccine, adsorbedElida Lica DDS Work Phone: [phone]nYewclv61-05-2888dfxsoqeni, injectable, quadrivalent, preservative freeElida Lica DDS Work Phone: [phone]hYjkpoc92-88-0124dyhmicsbz virus vaccine, unspecified formulationElida Lica DDS Work Phone: [phone]yQcwjsr85-99-4147Zccwpth Monovalent (12+ yrs) COVID-19 vaccine, mRNA, spike protein, LNP, PF, 100 mcg/0.5 mL (HVB=477)Dora Lica DDS Work Phone: [phone]mUyeegt58-28-1725zmugrbyfg, injectable, quadrivalent, preservative xoahNfnqfGxmtpm80-69-4105XBCGX-90, mRNA, LNP-S, PF, 30mcg/0.3mL DoseSteven Rusher DPM Work Phone: [facility] HospitalXyqbwjuwrj86-81-5176Nlltwvd SARS-COV-2 (COVID-19) vaccine, mRNA, spike protein, LNP, preservative free, 100 mcg/0.5 mL (primary) or 50 mcg/0.25 mL (booster) (IDZ=986)ZtwzyBvnxaz20-01-3516IORDO-67, mRNA, LNP-S, PF, 30mcg/0.3mL DoseSteven Rusher DPM Work Phone: [facility] HospitalNahdfruksz55-08-4449Xaaihse SARS-COV-2 (COVID-19) vaccine, mRNA, spike protein, LNP, preservative free, 100 mcg/0.5 mL (primary) or 50 mcg/0.25 mL (booster) (PDB=890)CjxnzBkztde91-43-7074cxdqpehcu, injectable, quadrivalent, preservative nsdxGkpraLmhgzd94-84-7823abdmvp vaccine recombinant MtjztTyqebr45-45-9479snqwqj vaccine, liveSteven Rusher DPM Work Phone: [facility] HospitalSyjsarzpvs15-96-5423dkuspscym, injectable, quadrivalent, preservative rprfBupjjVwxchd55-04-6892rptyzf vaccine recombinant TmsomTxyokk57-09-1549sanesi vaccine, liveSteven Rusher DPM Work Phone: [facility] HospitalBakqpnqvxy84-51-2767xzczvkjhp, injectable, quadrivalent, preservative gaztBxaxfVvlhdu29-20-2875cpxtiijch, injectable, quadrivalent, preservative zimbGiofaVqzfng12-34-9054frmntzfck virus vaccine, unspecified formulationSteven Rusher DPM Work Phone: [facility] HospitalCmfnvirrll52-77-4670fxozjcycv, injectable, quadrivalent, preservative jocnFpsedJplujx77-99-1076gedwjxqai, injectable, quadrivalent, preservative gwcbEunvtYjkfzp08-48-8231cjtxyqkqpuan polysaccharide vaccine, 23 sjqmmjOfaxbTpvnua24-67-4168hihlhkquhp, tetanus toxoids and acellular pertussis vobmlouFpshwXwqzdm11-08-6304kotfs obbbphdcx-Q2O4-08, injectable NbkmoIocrrw58-56-6598hvofzvhvybzl polysaccharide vaccine, 23 valCar[facility] 10-63-3977nzklyqd toxoid, reduced diphtheria toxoid, and acellular pertussis vaccine, adsorbedSteven Rusher DPM Work Phone: [facility] HospitalWxvqkhjjij01-22-3686bgjxgka and diphtheria toxoids, adsorbed, preservative free, for adult use (2 Lf of tetanus toxoid and 2 Lf of diphtheria toxoid)DqcphCpmwnf11-14-0736vwnxtvi and diphtheria toxoids, adsorbed, preservative free, for adult use (2 Lf of tetanus toxoid and 2 Lf of diphtheria toxoid)HzbbhYpoibg73-95-7480ngkfloe, mumps and rubella virus vaccine ZyzioDqtpxi02-48-9487abutdsj and diphtheria toxoids, adsorbed, preservative free, for adult use (2 Lf of tetanus toxoid and 2 Lf of diphtheria toxoid) [facility] Payers DatePayer CategoryPayerPolicy [id number]-[id number] [id number] 2014Medicaid [id number] 1998Medicare 1.2.840.649631.1.[id number] 2.16.840.1.967896.3.57[id number] 2.16.840.1.336652.3.57[id number] 2.16.840.1.902048.3.57[id number] 2.16.840.1.502808.3.57[id number] 2.16.840.1.183930.3.57[id number] 2.16.840.1.819652.3.57[id number] 2.16.840.1.685255.3.579.[id number] 2.16.840.1.526914.3.57[id number] 2.16.840.1.391549.3.579.[id number] 2.16.840.1.551216.3.57[id number] 2.16.840.1.890867.3.57[id number] 2.16.840.1.456295.3.579.[id number] 2..840.1.040925.3.57[id number] 2.16.840.1.092712.3.57[id number] 2.16.840.1.819074.3.579.2.[id number] 2..840.1.078017.3.579.2.[id number] 2..840.1.720390.3.579.2.[id number] 2.840.1.650468.3.579.[id number] 2..840.1.502863.3.57[id number] 2..840.1.799945.3.579.[id number] 2.840.1.087429.3.579.2.6[id number] 2.840.1.839361.3.579.2.94[id number] 2.840.1.974765.3.579.[id number] 2.16.840.1.677484.3.579.2.921551-99-2242Utgaein85362498 2.16840.1.932182.3.579.2.654[id number] 2.16.840.1.451604.3.579.2.[id number] 2.840.1.256539.3.579.2.780788-79-0022Nlcgggf02651609 2..840.1.833367.3.579.2.165038-92-4230Oqqegod40286005 2.840.1.260335.3.579.2.[id number] 2.840.1.734419.3.579.2.777380-46-0162Vtcpwqq45874723 2.840.1.368066.3.579.2.185430-08-1609Ozhhycs93759154 2.840.1.976226.3.579.2.463924-73-1104Lxlgulc43120336 2.840.1.356821.3.579.2.250657-31-3586Xwnkrka67999481 2.840.1.664729.3.579.2.125567-19-3656Evaxmdh90280173 2.840.1.655891.3.579.2.523334-63-1825Umoxawa18545407 2.840.1.970499.3.579.2.799578-20-4541Aacsftw6292524 2.840.1.635726.3.579.2.870470-95-8146Wptkrqp0478546 2.840.1.529152.3.579.2.231528-84-2232Yqwpusw0257787 2.840.1.397292.3.579.2.365298-15-6253Mnovdtc0141098 2.16.840.1.328707.3.579.2.756785-29-7992Qwxqzgb3792927 2.16.840.1.399192.3.579.2.596771-58-3310Oyvjoik3395717 2.16.840.1.159054.3.579.2.212601-50-3667Wqvqlnb6119019 2..840.1.398771.3.579.2.032851-95-2726Iqfilhg2739252 2..840.1.591251.3.579.2.642241-46-3689Xjzxpgf5059484 2..840.1.080157.3.579.2.940386-80-9727Qutaukq1552201 2..0.1.169665.3.579.2.1259 [id number] 1958Medicare [id number] 2..840.1.005185.3.579.2.531 Social History DateTypeDetailFacilityTobacco smoking status NHISTobacco smoking consumption unknownMetroHealthStart: 07-87-0201Jvp Assigned At BirthMaleMetroHealthStart: 72-53-2327Eeadii identityIdentifies as male gender (finding)[facility]HealthStart: 91-05-4880Cvrqey orientationChoose not to discloseMetroHealthStart: 08-03-2019 End: 56-62-8699Dyfvzez smoking status NHISNever smoked tobacco (finding) [facility]22 End: 50-86-6772Sajhetu use and exposureSmokeless tobacco non-userNOMS Healthcare Start: 02-07-2024 End: 23-03-6394Opbdtgrku beverage intakeLifetime non-drinker (finding)[facility] HealthcareStart: 02-07-2024 End: 34-44-0119Gkmtuov of Social functionNOMS HealthcareStart: 02-07-2024 End: 31-56-7683Bjyxjhd use panelEastern Missouri State HospitalStart: 19-75-1756Jwn assigned at birthNot on fileEastern Missouri State HospitalStart: 03-12-2024 End: 59-50-5870Jkpgxfitw beverage intakeCurrent non-drinker of alcohol (finding) [facility] Laboratoriestart: 34-73-7250Jhyoejmleh depression screening mnhhccgcbb1QunPqbevx SenseData [facility]art: 12-23-2014 End: 26-16-5881LckCbwb (finding)[facility] SenseData [facility] GladwinHas the [employer], gas, oil, or water [employer] threatened to shut off services in your home in past 12Mo NoPTerrebonne General Medical Center SenseData SystemDo you belong to any clubs or organizations such as episcopalian groups, unions, fraternal or athletic groups, or school groups?Yes [facility] SystemAre you now , , , , never or living with a partner?Never marriedProProtestant Hospital SystemDo you feel stress - tense, restless, nervous, or anxious, or unable to sleep at night because yourmind is troubled all the time - these days [OSQ]Not at allAv[facility] 09-20-2021 to 03-17-2025 Note Date & BylnDuucPgovvymw50-30-2173 History of Present illness Narrative* Maria Luisa Wagner, DPM - 03/17/2025 10:45 AM EDT Images [...] by his caregiver, Evelyn. Status post SDRM 22 application (11/18/2024). Previous dressings remained in place [...] mouth Daily, Disp: , Rfl: Multiple Vitamins-Minerals (TAB-A-XIOMARA MAXIMUM PO), Take by mouth, Disp: , [...] Disp: , Rfl: Water For Irrigation, Sterile ([place] Sterile Water) solution, Irrigate with as directed, [...] Maria Luisa Wagner DPM documented in this [facility]10-29-2025 Instructions* Patient Instructions* Maria Luisa Wagner DPM - 03/17/2025 10:45 AM EDT Wound care measures as noted documented in this [facility]10-22-2025 History of Present illness Narrative* Hope Gonzalez LPN - 03/10/2025 11:00 AM [...] the balloon port, # 24 fr Sp klein safely removed and replaced with #24 fr Sp klein catheter, 10cc's to placement balloon. S/P klein catheter then attached to leg bag per Pt. preference. Pt. To return in 3.5 weeks for next catheter change. Facility paperwork filled out. Hope Gonzalez LPN Ordering Doctor: MD Dania Supervising doctor: Fatemeh Fuentes PA-C documented in this encounterAvita [facility]10-16-2025 Miscellaneous Notes* Telephone Encounter - Selma Blanc CMA - 03/04/2025 1:28 PM EDT Staff called about how the meloxicam was sent in. It has always been just daily not as needed for pain. Due to his arthritis he benefits from the daily dose of medication. She was wondering can you change it back to daily? * Telephone Encounter - Paul Block DO - 03/04/2025 1:28 PM EDT He can still take it every day. It is not going to affect the refills or anything like that. If he is having a good day then maybe should not take it because it does have risks and I would be more than happy to discuss it with him at his next visit. He is not normally my patient I am just filling in * Telephone Encounter - Selma Blanc CMA - 03/04/2025 1:28 PM EDT Spoke to Herminio a staff member for [facility] and he is going to pass the message along to Kathy. documented in this encounterAvita [facility]10-16-2025 Telephone encounter Note* Telephone Encounter - Selma Blanc CMA - 03/04/2025 1:28 PM EDT Staff called about how the meloxicam was sent in. It has always been just daily not as needed for pain. Due to his arthritis he benefits from the daily dose of medication. She was wondering can you change it back to daily? [facility] Telephone encounter Note* Telephone Encounter - Paul Block DO - 03/04/2025 1:28 PM EDT He can still take it every day. It is not going to affect the refills or anything like that. If he is having a good day then maybe should not take it because it does have risks and I would be more than happy to discuss it with him at his next visit. He is not normally my patient I am just filling in [facility]10-16-2025 Telephone encounter Note* Telephone Encounter - Selma Blanc CMA - 03/04/2025 1:28 PM EDT Spoke to Herminio a staff member for [facility] and he is going to pass the message along to Kathy. [facility] History of Present illness Narrative* Maria Luisa Wagner DPM - 02/23/2025 3:30 PM EDT Images from the original note were not included. Subjective Patient ID: Igor Pereira is a 64 y.o. male who presents for No chief complaint on file.. HPI Follow-up assessment and wound care: Chronic, recalcitrant neuropathic wound; located dorsal lateral surface of the right midfoot. Accompanied by his caregiver, Evelyn. Status post SDRM 22nd application (11/18/2024). Previous dressings remained in place [...] mouth Daily, Disp: , Rfl: Multiple Vitamins-Minerals (TAB-A-XIOMARA MAXIMUM PO), Take by mouth, Disp: , [...] Disp: , Rfl: Water For Irrigation, Sterile ([place] Sterile Water) solution, Irrigate with as directed, [...] fluctuant swelling of theright midfoot. Post-debridement measurements: 02/23/2025: 1.5 x 1.0 x [...] soft tissue infectionor ischemic necrosis. Post-debridement measurements: 02/23/2025: 1.6 x 0.7 x [...] as indicated. 3. Offloading measures: Right AFO. Appropriate placement procedures will be reviewed with care staff. Wheelchair as necessary. Follow up: 2 weeks, sooner if any [...] Maria Luisa Wagner DPM documented in this [facility]10-07-2025 Instructions* Patient Instructions* Maria Luisa Wagner DPM - 02/23/2025 3:30 PM EDT Wound care measures as noted documented in this [facility]09-22-2025 History of Present illness Narrative* Maria Luisa Wagner DPM - 02/08/2025 10:30 AM EDT Images from the original note were not included. Subjective Patient ID: Igor Pereira is a 64 y.o. male who presents for Wound Care and Fungus (Established patient presents today for 3 week wound check, right foot. Patient also appears to have new area of concern on medial side of foot. ). HPI Follow-up assessment and wound care: Chronic, recalcitrant neuropathic wound; located dorsal lateral surface of the right midfoot. Accompanied by his caregiver, Kathy. Status post SDRM 22 application (11/18/2024). Last dressing remained in place 7 days. His caregiver relates a new open area on the medial aspect of the right foot, which has developedfrom a blister; presumably due to problems with AFO bracing; she is not certain. There has been no specific injury or trauma. There has been no recent change in activity or footwear otherwise. Wound Check Medications Current Outpatient Medications: acetaminophen [...] mouth Daily, Disp: , Rfl: Multiple Vitamins-Minerals (TAB-A-XIOMARA MAXIMUM PO), Take by mouth, Disp: , [...] Disp: , Rfl: Water For Irrigation, Sterile ([place] Sterile Water) solution, Irrigate with as directed, [...] well adhered, slightly raised, fibrotic and keratotic; minimally macerated. There are no clinical signs of infection. Unremarkable for malodor or ischemic changes. Soft tissue envelope well perfused. Chronic, stable fluctuant swelling of the right midfoot. Post-debridement measurements: 02/08/2025: 1.4 x 0.8 x [...] of cellulitis, soft tissue infectionor ischemic necrosis. Wound measurements: 2.4 x 1.0 x 0.1 cm Orthopedic: [...] as indicated. 3. Offloading measures: Right AFO. Appropriate placement procedures will be reviewed with care staff. Wheelchair as necessary. Follow up: 2 weeks, sooner if any [...] Maria Luisa Wagner DPM documented in this [facility]09-22-2025 Instructions* Patient Instructions* Maria Luisa Wagner DPM - 02/08/2025 10:30 AM EDT Wound care measures as noted documented in this [facility]09-[facility] History of Present illness Narrative* Hope Gonzalez LPN - 02/02/2025 11:00 AM EDT Pt. Arrived with Caregiver Evelyn for his regular monthly S/P tube change. Pt. Ambulated to the tx table with the help of Evelyn and this nurse. Pt. Prepped on the table. Evelyn stated that she is pretty sure that he has a UTI because his urine has been darker, it has a very strong odor to it - even stronger than normal and he has had behavioral changes as well. She states he has not had aggression for a long time and it usually comes with UTI's. This nurse then inserted 20 mL NS into the catheterto get a urine sample. Stoma looks good and clean. No s/s of redness or infection. Stoma fatimah-area cleansed with betadine swabs, and extra lube was added d/t having trouble getting old S/P tube out in the past. This nurse did have an extremely difficult time getting the old tube out d/t the crystalization on the tube. Tube was pulled out and new 24 fr catheter was then placed in the stoma. There was some blood with the tube exchange. Pt. Was cleaned up and leg bag was attached to the right upper thigh per Pt. Preference. Noting further at this time. Facility paperwork was filled out. Pt. To return in one month for next S/P tube change. Hope Gonzalez LPN Ordering Physician: MD Dania Supervising Physician: MD Dania documented in this encounterAv[facility]09-08-20[facility] History of Present illness Narrative* Paul Andrade Umberto, DO - 01/25/2025 10:45 AM EDT Subjective Patient ID: Igor Pereira is a 64 y.o. male. Sai presents today with his caregiver for a CV recheck. He is taking his medications. He does not have any side effects. There are no new problems to report. The following portions of the patient's history were reviewed and updated as appropriate: allergies, current medications, past family history, past medical history, past social history, past surgicalhistory, problem list, and medication reconciliation was completed including current medication andpost discharge medication. Review of Systems Constitutional: Negative. Respiratory: Negative. Cardiovascular: Negative. Gastrointestinal: Positive for constipation. Genitourinary: Positive for difficulty urinating. Musculoskeletal: Positive for gait problem. Neurological: Positive for speech difficulty. Psychiatric/Behavioral: Positive for behavioral problems and decreased concentration. Objective Physical Exam Vitals reviewed. Exam conducted with a senior financial reporting accountant present (Caregiver). Constitutional: General: He is not in acute distress. Appearance: He is not ill-appearing. Eyes: General: No scleral icterus. Extraocular Movements: Extraocular movements intact. Conjunctiva/sclera: Conjunctivae normal. Cardiovascular: Rate and Rhythm: Normal rate and regular rhythm. Heart sounds: Normal heart sounds. No murmur heard. Pulmonary: Effort: Pulmonary effort is normal. No respiratory distress. Breath sounds: Normal breath sounds. No stridor. No wheezing, rhonchi or rales. Musculoskeletal: Cervical back: Neck supple. Right lower leg: No edema. Left lower leg: No edema. Neurological: General: No focal deficit present. Mental Status: He is alert and oriented to person, place, and time. Gait: Gait abnormal (ambulating with arm crutches). Psychiatric: Attention and Perception: He is inattentive. Mood and Affect: Affect is blunt. Speech: Speech is delayed (repetitive). Behavior: Behavior is slowed. Cognition and Memory: Cognition is impaired. Memory is impaired. He exhibits impaired recent memoryand impaired remote memory. Judgment: Judgment is inappropriate. Assessment/Plan Igor was seen today for cv recheck/ medications. Diagnoses and all orders for this visit: Mixed hyperlipidemia Lipids at goal. Continue current regimen Benign hypertension with stage 3a chronic kidney disease ([facility]) Recent labs discussed. He has stage IIIA chronic kidney disease based on those results. Controllingrisk factors is sylvester. Continue current regimen. Blood pressure is at goal. Primary hypertension Blood pressure at goal. Continue current regimen Intellectual disability Stable. Continue current regimen Impulse control disorder Stable. Continue current regimen Aggressive behavior Stable. Continue current regimen Suprapubic catheter ([facility]) Stable. Continue current regimen Spina bifida without hydrocephalus, unspecified spinal region ([facility]) Stable. Continue current regimen Overweight He is overweight. He would benefit from weight loss. He does not exercise because of multiple medical problems. His meals are served to him so he does not have much control over that. He does drink 1Pepsi a day and he gets satisfaction from that so I am not going to deprive him of that mariah. documented in this encounterAv[facility]09-08-20[facility] Evaluation note* Diagnosis Mixed hyperlipidemia- Primary Benign hypertension with stage 3a chronic kidney disease ([facility]) Primary hypertension Unspecified essential hypertension Intellectual disability Unspecified mental retardation Impulse control disorder Impulse control disorder, unspecified Aggressive behavior Explosive personality disorder Suprapubic catheter ([facility]) Other cystostomy status Spina bifida without hydrocephalus, unspecified spinal region ([facility]) Overweight documented in this encounter [facility]08-28[facility] History of Present illness Narrative* Maria Luisa Wagner, ELE - 01/14/2025 11:00 AM EDT Images from the original note were not included. Subjective Patient ID: Igor Pereira is a 64 y.o. male who presents for Foot Wound Check (Pt is here today for wound check Rt foot, his caregiver Herminio is with him today.). HPI Follow-up assessment and wound care: Chronic, recalcitrant neuropathic wound; located dorsal lateral surface of the right midfoot. Accompanied by his caregiver, Herminio. Status post SDRM application (11/18/2024). Last dressing remained in place 7 days. [...] mouth Daily, Disp: , Rfl: Multiple Vitamins-Minerals (TAB-A-XIOMARA MAXIMUM PO), Take by mouth, Disp: , [...] Disp: , Rfl: Water For Irrigation, Sterile ([place] Sterile Water) solution, Irrigate with as directed, [...] well adhered, slightly raised, fibrotic and keratotic; minimally macerated. There are no clinical signs of infection. Unremarkable for malodor or ischemic changes. Soft tissue envelope well perfused. Chronic, stable fluctuant swelling of the right midfoot. Post-debridement measurements: 01/14/2025: 1.2 x 0.6 x [...] wound preparation followed by Jennifer collagen matrix dressing. 2. Dressing intact, clean and dry x [...] Maria Luisa Wagner DPM documented in this [facility]08-28-2025 Instructions* Patient Instructions* Maria Luisa Wagner DPM - 01/14/2025 11:00 AM EDT Wound care measures as noted documented in this [facility]08-11-2025 History of Present illness Narrative* Hope Gonzalez LPN - 12/28/2024 11:00 AM EDT Pt. Arrives at this office for a regular monthly S/P tube change accompanied by his caregiver. Pt. Brought back to the treatment room and prepped with the help of this nurse and his caregiver. Betadine swabs used to cleanse the S/P tube stoma. 10 mL Ns then removed from the balloon port. This nurseattempted to remove the old 24 fr catheter from the stoma, but did have difficulties. This nurse then added more lubrication to the stoma and was then able to remove the catheter with no difficulties. New 24 fr straight catheter replaced into the stoma. 10 mL NS inserted into the balloon port. Leg bag attached. Stoma was cleaned up. Pt. Then redressed with the help of this nurse and his caregiver. Pt.'s facility paperwork was filled out. Pt.'s caregiver helped the Pt. To their vehicle. Pt. To return in one month. Hope Gonzalez LPN Ordering Physician: MD Dania Supervising Physician: Dr Oibe MD documented in this encounterAvita [facility]08-07-20[facility] History of Present illness Narrative* Maria Luisa Wagner DPM - 12/24/2024 11:00 AM EDT Images from the original note were not included. Subjective Patient ID: Igor Pereira is a 64 y.o. male who presents for Foot Wound Check (PT is here today for wound check, his is here today with his caregiver, Evelyn.). HPI Follow-up assessment and wound care: Chronic, recalcitrant neuropathic wound; located dorsal lateral surface of the right midfoot. Accompanied by his caregiver, Evelyn. Status post SDRM 22 application (11/18/2024). Last dressing remained in place 7 days. [...] mouth Daily, Disp: , Rfl: Multiple Vitamins-Minerals (TAB-A-XIOMARA MAXIMUM PO), Take by mouth, Disp: , [...] Disp: , Rfl: Water For Irrigation, Sterile ([place] Sterile Water) solution, Irrigate with as directed, [...] with double-arm crutch assist. Bilateral AFOs in place (noted to be on the wrong foot), wearing new balance shoes. Accompanied by caregiver, [...] well adhered, slightly raised, fibrotic and keratotic; minimally macerated. There are no clinical signs of infection. Unremarkable for malodor or ischemic changes. Soft tissue envelope well perfused. Chronic, stable fluctuant swelling of the right midfoot. Post-debridement measurements: 12/24/2024: 1.2 x 0.6 x [...] Sharp debridement and wound preparation followed by collagen matrix dressing. 2. Dressing intact, clean and dry x [...] stimulating granular bleeding. Saline cleansing. Pressure hemostasis. Collagen matrix dressing; followed by a dry sterile [...] Maria Luisa Wagner DPM documented in this encounterEastern Missouri State [id number] Instructions* Patient Instructions* Maria Luisa Wagner DPM - 12/24/2024 11:00 AM EDT Wound care measures as noted documented in this encounterEastern Missouri State HospitalQrtbslkljl33-29-5071 History of Present illness Narrative* Maria Luisa Wagner DPM - 12/09/2024 10:45 AM EDT Images from the original note were not included. Subjective Patient ID: Igor Pereira is a 64 y.o. male who presents for Foot Wound Check ( Igor Tovar a 64 y.o. male who presents for Wound check. Care staff Evelyn is present. ). HPI Follow-up assessment and wound care: Chronic, recalcitrant neuropathic wound; located dorsal lateral surface of the right midfoot. Accompanied by his caregiver, Evelyn. Status post SDRM 22nd application (11/18/2024). Last dressing remained in place 7 days. [...] mouth Daily, Disp: , Rfl: Multiple Vitamins-Minerals (TAB-A-XIOMARA MAXIMUM PO), Take by mouth, Disp: , [...] Disp: , Rfl: Water For Irrigation, Sterile ([place] Sterile Water) solution, Irrigate with as directed, [...] swelling of the right midfoot. Post-debridement measurements: 12/09/2024: 1.2 x 0.5 x [...] Sharp debridement and wound preparation followed by collagen matrix dressing. 2. Dressing intact, clean and dry x [...] stimulating granular bleeding. Saline cleansing. Pressure hemostasis. Collagen matrix dressing; followed by a dry sterile [...] Maria Luisa Wagner DPM documented in this [facility]07-23-2025 Instructions* Patient Instructions* Maria Luisa Wagner DPM - 12/09/2024 10:45 AM EDT Wound care instructions as noted documented in this [facility]07-14-2025 History of Present illness Narrative* Maria Luisa Wagner DPM - 11/30/2024 8:45 AM EDT Images from the original note were not included. Subjective Patient ID: Igor Pereira is a 64 y.o. male who presents for Toenail Care (Established patient presents today for routine nail care. ). HPI Presents today for care of thickened, deformed and discolored toenails. Accompanied by his caregiver, Herminio. Chronic toenail deformity of multiple years duration. Again, progressively problematic over the past several months or so; particularly with progressive catching and snagging on clothing, bed sheets etc.. There is no associated discomfort, acknowledging lower extremity neuropathy and paraplegia. There has been no bleeding or drainage. Care staff unable to provide effective care. Wound Check Medications Current Outpatient Medications: acetaminophen [...] mouth Daily, Disp: , Rfl: Multiple Vitamins-Minerals (TAB-A-XIOMARA MAXIMUM PO), Take by mouth, Disp: , [...] Disp: , Rfl: Water For Irrigation, Sterile ([place] Sterile Water) solution, Irrigate with as directed, [...] skin turgor is otherwise good. NAIL PATHOLOGY: All digits: None are spared: Varying degrees of toenail dystrophy, thickening, elongation, discoloration, clubbing, crumbly texture, subtotal detachment, periungual hyperkeratotic andmycotic debris, without drainage. Total with debris: TDO deformity several digits. INTERDIGITAL MACERATION: Clean and dry. ULCER: Right [...] spina bifida with myelomeningocele 3. LE neuropathy/LOPS (Q9). 4. Acquired bilateral foot and LE deformities 5. Acquired hyperkeratotic lesions navicular tuberosity bilateral. 6. Status post Epifix x 10; (#10 applied 03/14/2022) Impression: Wound appears to be responding favorably, measures slightly smaller. Remains clean and stable; without infection or ischemic necrosis. 7. Chronic, stable onychodystrophy/mycosis multiple digits Plan: Conservative and palliative care measures are indicated. Continue daily wound care measures. Procedure: Toenail debridement: Aseptic technique: Hand and power instrumentation: Onychodebridement in length and thickness, with curettage of any cryptotic margins, all periungual debris; providingeffective symptom and pressure relief; reducing shoe and digital trauma. This note was created with the assistance of a speech recognition program. While intending to generate a timely document that accurately reflects the content of the visit, no guarantee can be provided that every grammatical or spelling mistake has been or will be identified or corrected. Thank you for your understanding. Maria Luisa Wagner DPM documented in this [facility]07-14-2025 Instructions* Patient Instructions* Maria Luisa Wagner DPM - 11/30/2024 8:45 AM EDT Wound care measures as noted documented in this encounterEastern Missouri State [id number] History of Present illness Narrative* Maria Luisa Wagner DPM - 11/18/2024 10:45 AM EDT [...] mouth Daily, Disp: , Rfl: Multiple Vitamins-Minerals (TAB-A-XIOMARA MAXIMUM PO), Take by mouth, Disp: , [...] Disp: , Rfl: Water For Irrigation, Sterile ([place] Sterile Water) solution, Irrigate with as directed, [...] Maria Luisa Wagner DPM documented in this [facility]07-02-2025 Instructions* Patient Instructions* Maria Luisa Wagner DPM - 11/18/2024 10:45 AM EDT Wound care instructions provided to care staff as noted documented in this [facility]07-01-2025 History of Present illness Narrative* Hope Gonzalez LPN - 11/17/2024 10:30 AM EDT Patient presents for Suprapubic catheter change with # 24 fr Sp catheter attached to leg bag with his Caregiver . Patient prepped and draped and Sp Site cleansed with betadine swabs. # 24 fr Sp foleysafely removed and replaced with # 24 fr Sp klein catheter 10 cc's to placement balloon. klein thendid then have a return of yellow urine, slight odor noted. Sp klein catheter then attached to drainage bag. Tolerated the procedure well. Will return in one month. Hope Gonzalez LPN Ordering Doctor: MD Dania Supervising doctor: MD Dania documented in this encounterAv[facility] History of Present illness Narrative* Chapin Cast, SOAP TENDER-SENIOR RECEPTIONIST - 11/06/2024 9:23 AM EDT Subjective SUBJECTIVE: Patient ID: Igor Pereira is a 64 y.o. male who presents for a Medicare Annual Wellness exam. Resides at [facility]. He is accompanied today by RN. [...] 02/15/2022 Performed by Annette Box DO at [facility] COLONOSCOPY N/A 12/17/2016 Performed by Annette Box DO at [facility] SPINE SURGERY Past Medical History: Diagnosis Date Anemia Anxiety Bilateral impacted cerumen 10/23/2016 Calculus, bladder Cerumen debris on tympanic membrane of both ears 01/29/2017 Colon polyps Hydrocephalus ([facility]) Hydronephrosis Hypertension Neurogenic bladder Restlessness and agitation 01/10/2017 Spina bifida of lumbar spine ([facility]) Stricture, ureter Suprapubic catheter ([facility]) Urinary tract infection Immunization History Administered Date(s) [...] 135/83 Pulse: 82 Resp: 16 Temp: 36.2 C (97.2 F) TempSrc: Oral SpO2: 98% Weight: 73.9 kg [...] EVY Miner 11/09/24 1244 documented in this encounterAvita Health System [facility]06-11-2025 History of Present illness Narrative* Maria Luisa Wagner, ELE - 10/28/2024 3:30 PM EDT Images from the original note were not included. Subjective Patient ID: Igor Pereira is a 64 y.o. male who presents for Wound Care (Igor Pereira is a 64 y.o. Established pt presents today for 3 week wound check, right foot. Care staff Herminio is present.). HPI Follow-up assessment and wound care: Chronic, recalcitrant neuropathic wound; located dorsal lateral surface of the right midfoot. Accompanied by his caregiver, Catherine. Status post SDRM 20th application (10/01/2024). Last dressing remained in place 7 days. There remains minimal serous drainage on a daily basis. There has been no streaking. Compliance with daily wound care measures and bracing remains good. Medications Current Outpatient Medications: acetaminophen (Tylenol) 325 [...] mouth Daily, Disp: , Rfl: Multiple Vitamins-Minerals (TAB-A-XIOMARA MAXIMUM PO), Take by mouth, Disp: , [...] Disp: , Rfl: Water For Irrigation, Sterile ([place] Sterile Water) solution, Irrigate with as directed, [...] drainage, without undermining, tunneling or probing. Marginal epithelialization noted. The wound margins are well adhered, slightly raised, fibrotic and keratotic; mildly macerated. There are no clinical signs of infection. Unremarkable for malodor or ischemic changes. Soft tissue envelope well perfused. Chronic, stable fluctuant swelling of the right midfoot. Post-debridement measurements: 10/28/2024: 0.9 x 0.4 x [...] followed by Supra SDRM biodegradable matrix application #21 (donated product/assistance program). 2. Dressing intact, clean [...] Maria Luisa Wagner DPM documented in this [facility]06-11-2025 Instructions* Patient Instructions* Maria Luisa Wagner DPM - 10/28/2024 3:30 PM EDT Wound care instructions as noted documented in this [facility]05-27-2025 History of Present illness Narrative* Hope Gonzalez LPN - 10/13/2024 11:30 AM EDT Patient presents for Suprapubic catheter change with #24 fr Sp catheter attached to leg bag. Pt. Isaccompanied by his caregiver. Patient prepped and draped and Sp Site cleansed with betadine swabs 2% lidocaine urojet instilled for comfort. # 24 fr Sp klein safely removed and replaced with # 24 fr Sp klein catheter 8 cc's to placement balloon. Sp klein catheter then attached to leg bag. This nurse did help the Pt.'s caregiver ambulate the Pt. Back into his WC. Hope Gonzalez LPN Ordering Doctor: MD Dania Supervising doctor: MD Dania documented in this encounterAvita Health [facility]05-15-2025 History of Present illness Narrative* Maria Luisa Ma Martin, DPM - 10/01/2024 4:00 PM EDT Images from the original note were not included. Subjective Patient ID: Igor Pereira is a 64 y.o. male who presents for Wound Care ( Igor Pereira is a 64 y.o. Established pt presents today for 3 week wound check, right foot. Care staff Sofia is present.). HPI Follow-up assessment and wound care: Chronic, recalcitrant neuropathic wound; located dorsal lateral surface of the right midfoot. Accompanied by his caregiver, Catherine. Status post SDRM 19 application (09/10/2024). Last dressing remained in place 7 days. There remains minimal serous drainage on a daily basis. There has been no streaking. Compliance with daily wound care measures and bracing remains good. Medications Current Outpatient Medications: acetaminophen (Tylenol) 325 [...] mouth Daily, Disp: , Rfl: Multiple Vitamins-Minerals (TAB-A-XIOMARA MAXIMUM PO), Take by mouth, Disp: , [...] Disp: , Rfl: Water For Irrigation, Sterile ([place] Sterile Water) solution, Irrigate with as directed, Disp: , Rfl: zinc gluconate 50 MG tablet, Take 50 mg by mouth Daily, Disp: , Rfl: Allergies Patient has no known allergies. Past Surgical History Past Surgical History: Procedure Laterality Date BACK SURGERY Family History Family History Problem Relation Name Age of Onset Mental illness Maternal Grandfather Objective General Examination: GENERAL EXAMINATION: Presents by way of wheelchair. Bilateral AFOs in place, wearing new balance shoes. Accompanied by caregiver, Catherine. Vascular: DORSALIS PEDIS PULSE: 1/4 bilateral. POSTERIOR [...] drainage, without undermining, tunneling or probing. Marginal epithelialization noted. The wound margins arewell adhered, slightly raised, fibrotic and keratotic; mildly macerated. There are no clinical signs of infection. Unremarkable for malodor or ischemic changes. Soft tissue envelope well perfused. Chronic, stable fluctuant swelling of the right midfoot. Post-debridement measurements: 10/01/2024: 1.4 x 0.4 x [...] followed by Supra SDRM biodegradable matrix application #20 (donated product/assistance program). 2. Dressing intact, clean [...] Maria Luisa Wagner DPM documented in this [facility]05-15-2025 Instructions* Patient Instructions* Maria Luisa Wagner DPM - 10/01/2024 4:00 PM EDT Wound care measures as noted documented in this [facility]05-09-2025 History of Present illness Narrative* Chapin Cast APRN-SENIOR RECEPTIONIST - 09/25/2024 9:30 AM EDT Patient Name: Igor Pereira Date of : 1960 Date of Service: 09/25/24 Facility: [facility] Igor Pereira is a 64 y.o. male seen today at [facility] for Chief Complaint Patient presents with Follow up . Resides at [facility] [place] Accompanied by RN today. Total care provided by staff, including medication administration. Attendsdaily workshop Severe cognitive and intellectual delay. Able to verbalize needs in short phrases and facial expressions. States he fractured his right 4th finger on 08/04/23. Is being monitored by Dr. Sandoval, orthopedic. Is currently doing more time in wheelchair due to fracture. Uses bilateral crutches only when at home. Pain is controlled with Mobic 7.5 mg oral daily. He also has used Tylenol PRN. Overall, RN states patient is doing well. RN states patient is having BM's almost daily. Past Medical History: Diagnosis Date Anemia Anxiety Bilateral impacted cerumen 10/23/2016 Calculus, bladder Cerumen debris on tympanic membrane of both ears 01/29/2017 Colon polyps Hydrocephalus ([facility]) Hydronephrosis Hypertension Neurogenic bladder Restlessness and agitation 01/10/2017 Spina bifida of lumbar spine ([facility]) Stricture, ureter Suprapubic catheter ([facility]) Urinary tract infection Past Surgical History: Procedure Laterality Date BLADDER SURGERY suprapubic catheter placement COLONOSCOPY N/A 02/15/2022 Performed by Annette Box DO at [facility] COLONOSCOPY N/A 12/17/2016 Performed by Annette Box DO at [facility] Family History Problem Relation [...] TAKE 1 CAPSULE BY MOUTH THREE TIMES DAILY(8AM,3PM,8PM) 93 capsule 11 amLODIPine (NORVASC) 2.5 mg tablet take 1 tablet by mouth once every day 31 tablet 11 ammonium lactate (AMLACTIN) 12 % cream Apply 1 Application topically as needed for dry skin. CALMOSEPTINE 0.44-20.6 % ointment APPLY TOPICALLY TO BUTTOCK TWICE DAILY;APPLY TOPICALLY TO BUTTOCKAS NEEDED 113 g 11 CHEST CONGESTION RELIEF 100 mg/5 mL syrup TAKE 10 ML BY MOUTH EVERY 6 HOURS NEEDED FOR COUGH 473mL 11 citalopram (CeleXA) 40 mg tablet Take 1 tablet (40 mg total) by mouth in the morning. 31 tablet 11 DERMACERIN cream APPLY TOPICALLY TO SITES ON BILATERAL FEET ONCE EVERY DAY (6AM) 106 g 11 dilTIAZem CD (CARDIZEM CD) 240 mg 24 hr capsule TAKE 1 CAPSULE BY MOUTH ONCE EVERY DAY 31 capsule 11 divalproex (DEPAKOTE ER) 500 mg 24 hr tablet Take 2 tablets (1,000 mg total) by mouth nightly. 62 tablet 11 ENEMA DISPOSABLE 19-7 gram/118 mL [...] AREA 2 TIMES DAILY NEEDED FOR HEMORRHOIDS UNTILRESOLVED (DATE, TIME, INITIAL, EFFECT) 30 g 11 [...] by mouth in the morning and 1 tablet(2 mg total) before bedtime. 60 tablet 12 [...] KLEIN CATHETER ONCE WEEKLY;USE 30 CC'S TO IRRIGATEFOLEY CATHETER NEEDED (IF NOT USING SOD CHLORIDE) 500 mL 11 TAB-A-XIOMARA MULTIVITAMIN W-IRON 18-400 mg-mcg tablet take 1 tablet by mouth once every day 31 TRIPLE ANTIBIOTIC 3.5mg-400 unit- 5,000 unit/gram ointment [...] past medical history, past social history, past surgicalhistory, problem list, and medication reconciliation was completed including current medication andpost discharge medication. Review of Systems Reason unable to perform ROS: RN completes ROS due to patient cognative and intellectual disability. Constitutional: Negative for chills, fatigue [...] not bruise/bleed easily. Psychiatric/Behavioral: Negative. Objective BP 148/76 Pulse 78 Temp 36.8 C (98.2 F) (Oral) Resp 20 Wt 73.5 kg (162 lb) SpO2 98% BMI29.63 kg/m Physical Exam Vitals and nursing note [...] Normal range of motion and neck supple. Comments: Right 4th finger, mild deformity due to fracture. Lymphadenopathy: Cervical: No cervical adenopathy. Skin: General: Skin is warm and dry. Capillary Refill: Capillary refill takes less than 2 seconds. Findings: No rash. Neurological: Mental Status: He is alert. Mental status is at baseline. Deep Tendon Reflexes: Reflexes are normal and symmetric. Psychiatric: Mood and Affect: Mood normal. Behavior: Behavior normal. Assessment/Plan Summary / Assessment / Plan 1. Primary hypertension 2. Impulse control disorder 3. Intellectual disability 4. Mixed hyperlipidemia 5. Chronic constipation 1. HTN Continue lisinopril 30 mg oral daily Continue amlodipine 2.5 mg oral daily. 2. Mixed hyperlipidemia Continue simvastatin 10 mg oral daily 3. Impulse control disorder OCD, impulse control Managed by Dr. Sorensen, psychiatry 4. Chronic constipation Caregiver reports no concerns. Continue lactulose, Miralax, Senokot, increased fiber diet. There are no Patient Instructions on file for this visit. ELECTRONICALLY SIGNED BY: EVY Miner APRN-CNP 09/30/24 1303 documented in this encounterAvita Health [facility]04-29-2025 History of Present illness Narrative* Hope Gonzalez LPN - 09/15/2024 9:30 AM EDT Patient presents for Suprapubic catheter change accompanied by his Nurse, with # 24 fr Sp catheter attached to a leg bag. Patient prepped and draped and Sp Site cleansed with betadine swabs. # 24 fr Sp klein safely removed and replaced with # 24 fr Sp klein catheter 8 cc's to placement balloon.Catheter tip is in tact. Catheter then attached to a leg bag. Hope Gonzalez LPN Ordering Doctor: MD Dania Supervising doctor: MD Dania documented in this [facility]04-24-2025 History of Present illness Narrative* Maria Luisa Wagner DPM - 09/10/2024 3:30 PM EDT Images from the original note were not included. Subjective Patient ID: Igor Pereira is a 64 y.o. male who presents for Follow-up (Established pt presents today for 3 week wound check, right foot. ). HPI Follow-up assessment and wound care: Chronic, recalcitrant neuropathic wound; located dorsal lateral surface of the right midfoot. Accompanied by his caregiver, Rica. Status post SDRM 18th application (08/19/2024). Last dressing remained in place 7 days. There remains minimal serous drainage on a daily basis. There has been no streaking. Compliance with daily wound care measures and bracing remains good. Medications Current Outpatient Medications: acetaminophen (Tylenol) 325 [...] mouth Daily, Disp: , Rfl: Multiple Vitamins-Minerals (TAB-A-XIOMARA MAXIMUM PO), Take by mouth, Disp: , [...] Disp: , Rfl: Water For Irrigation, Sterile ([place] Sterile Water) solution, Irrigate with as directed, [...] wearing new balance shoes. Accompanied by caregiver, Rica. Vascular: DORSALIS PEDIS PULSE: 1/4 bilateral. POSTERIOR [...] raised, fibrotic and keratotic; mildly macerated. There areno clinical signs of infection. Unremarkable for malodor or ischemic changes. Soft tissue envelope well perfused. Chronic, stable fluctuant swelling of the right midfoot. Post-debridement measurements: 09/10/2024: 1.3 x 0.6 x [...] 09/03/2023: 2.5 x 1.8 x 0.2 cm Orthopedic: DEFORMITIES: severe gastrocsoleus [...] followed by Supra SDRM biodegradable matrix application #19 (donated product/assistance program). 2. Dressing intact, clean [...] Maria Luisa Wagner DPM documented in this [facility]04-24-2025 Instructions* Patient Instructions* Maria Luisa Wagner DPM - 09/10/2024 3:30 PM EDT Wound care measures as noted documented in this [facility]04-02-2025 History of Present illness Narrative* Maria Luisa Wagner DPM - 08/19/2024 10:45 AM EDT Images from the original note were not included. Subjective Patient ID: Igor Pereira is a 64 y.o. male who presents for Foot Ulcer (Established pt presentstoday with care staff for 3 week wound check, right foot.). HPI Follow-up assessment and wound care: Chronic, recalcitrant neuropathic wound; located dorsal lateral surface of the right midfoot. Accompanied by his caregiver, Evelyn. Status post SDRM 17 application (07/06/2024). Last dressing was removed after 3 days (miscommunication). There remains minimal serous drainage on a daily basis. There has been no streaking. Compliance with bracing remains good. Medications Current Outpatient Medications: acetaminophen (Tylenol) 325 [...] Disp: , Rfl: Water For Irrigation, Sterile ([place] Sterile Water) solution, Irrigate with as directed, [...] raised, fibrotic and keratotic; mildly macerated. There areno clinical signs of infection. Unremarkable for malodor or ischemic changes. Soft tissue envelope well perfused. Chronic, stable fluctuant swelling of the right midfoot. Post-debridement measurements: 08/19/2024: 1.3 x 0.6 x [...] followed by Supra SDRM biodegradable matrix application #18 (donated product/assistance program). 2. Dressing intact, clean [...] Maria Luisa Wagner DPM documented in this [facility]04-02-2025 Instructions* Patient Instructions* Maria Luisa Wagner DPM - 08/19/2024 10:45 AM EDT Wound care measures as noted documented in this [facility]04-01-2025 History of Present illness Narrative* Hope Gonzalez LPN - 08/18/2024 9:00 AM EDT Patient presents for Suprapubic catheter change with his caregiver for his regular monthly S/P tubechange with # 24 fr Sp catheter attached to a leg bag. Patient prepped and draped and Sp Site cleansed with betadine swabs. # 24 fr Sp klein safely removed. This nurse did have a hard time removing the catheter. This nurse added extra lubrication to the S/P tube and old catheter to help with removal. Catheter did have to be twisted, and pushed in and out to completely removed. Catheter then replaced with # 24 fr Sp klein catheter 8 cc's to placement balloon. After new catheter was placed and secure, this nurse did inspect the old catheter tip, in which there was a good amount of hard sediment on the catheter tip throughout. Catheter tip is in tact. It was explained to the Caregiver that this was most likely the cause of the difficulty with the removal. After the Pt.'s stoma was cleaned up, it was also inspected. There is some redness due to the difficulty with the catheter removal. There is a slight amount of blood at the right side of the stoma that was easily stopped and cleaned up with a wipe and gauze. Pt. Does have some blood tinged urine draining into the new leg bag that was attached to the catheter. Caregiver was explained this as well, stated she understood. Will schedulenext S/P tube change in 3 weeks to see if this helps prevent the difficult catheter removal. Pt. Did tolerate the S/P tube change well. Hope Gonzalez LPN Ordering Physician: MD Dania Supervising Physician: MD Dania documented in this encounterAvita [facility]03-04-2025 History of Present illness Narrative* Hope Gonzalez LPN - 07/21/2024 9:00 AM EST Patient presents for Suprapubic catheter change with # 24 fr Sp catheter attached to a leg bag. Pt.Is accompanied by his Caregiver. Patient prepped and draped and Sp Site cleansed with betadine swabs 2%. # 24 fr Sp klein safely removed and replaced with # 24 fr Sp klein catheter 8 cc's to placement balloon. Catheter did have a small return of yellow urine. Sp klein catheter then attached to drainage bag. Facility paperwork was filled out. Pt. Tolerated the tx well. Hope Gonzalez LPN Ordering Doctor: MD Dania Supervising doctor: MD Dania documented in this encounterAvita Health [facility]02-17-2025 History of Present illness Narrative* Maria Luisa Wagner, DPM - 07/06/2024 1:45 PM EST Images from the original note were not included. Subjective Patient ID: Igor Pereira is a 64 y.o. male who presents for Foot Ulcer (Established pt presentstoday with his nurse Kathy for 1 month [...] Disp: , Rfl: Water For Irrigation, Sterile ([place] Sterile Water) solution, Irrigate with as directed, [...] raised, fibrotic and keratotic; mildly macerated. There areno clinical signs of infection. Unremarkable for malodor [...] Maria Luisa Wagner DPM documented in this [facility]02-17-2025 Instructions* Patient Instructions* Maria Luisa Wagner DPM - 07/06/2024 1:45 PM EST Wound care measures as noted documented in this encounterEastern Missouri State [id number] History of Present illness Narrative* Chapin Cast, SOAP TENDER-SENIOR RECEPTIONIST - 07/03/2024 11:59 PM EST Patient Name: Igor Pereira Date of : 1960 Date of Service: 07/03/2024 Facility: [facility] Igor Pereira is a 64 y.o. male seen today at [facility] for Chief Complaint Patient presents with 3 month follow up visit . Resides at [facility] Accompanied by RN today. Total care provided by staff, including medication administration. Attendsdaily workshop Severe cognitive and intellectual delay. Able to verbalize needs in short phrases and facial expressions. RN reports Igor has been doing well. There is no concerns today. Past Medical History: Diagnosis Date Anemia Anxiety Bilateral impacted cerumen 10/23/2016 Calculus, bladder Cerumen debris on tympanic membrane of both ears 01/29/2017 Colon polyps Hydrocephalus ([facility]) Hydronephrosis Hypertension Neurogenic bladder Restlessness and agitation 01/10/2017 Spina bifida of lumbar spine ([facility]) Stricture, ureter Suprapubic catheter ([facility]) Urinary tract infection Past Surgical History: Procedure Laterality Date BLADDER SURGERY suprapubic catheter placement COLONOSCOPY N/A 02/15/2022 Performed by Annette Box DO at [facility] COLONOSCOPY N/A 12/17/2016 Performed by Annette Box DO at [facility] Family History Problem Relation [...] TAKE 1 CAPSULE BY MOUTH THREE TIMES DAILY(8AM,3PM,8PM) 93 capsule 11 amLODIPine (NORVASC) 2.5 mg tablet take 1 tablet by mouth once every day 31 tablet 11 ammonium lactate (AMLACTIN) 12 % cream Apply 1 Application topically as needed for dry skin. CALMOSEPTINE 0.44-20.6 % ointment APPLY TOPICALLY TO BUTTOCK TWICE DAILY;APPLY TOPICALLY TO BUTTOCKAS NEEDED 113 g 11 CHEST CONGESTION RELIEF 100 mg/5 mL syrup TAKE 10 ML BY MOUTH EVERY 6 HOURS NEEDED FOR COUGH 473mL 11 citalopram (CeleXA) 40 mg tablet Take [...] AREA 2 TIMES DAILY NEEDED FOR HEMORRHOIDS UNTILRESOLVED (DATE, TIME, INITIAL, EFFECT) 30 g 11 [...] by mouth in the morning and 1 tablet(2 mg total) before bedtime. 60 tablet 12 [...] KLEIN CATHETER ONCE WEEKLY;USE 30 CC'S TO IRRIGATEFOLEY CATHETER NEEDED (IF NOT USING SOD CHLORIDE) 500 mL 11 TAB-A-XIOMARA MULTIVITAMIN W-IRON 18-400 mg-mcg tablet take 1 tablet by mouth once every day 31 [id number] TRIPLE ANTIBIOTIC 3.5mg-400 unit- 5,000 unit/gram ointment [...] past medical history, past social history, past surgicalhistory, problem list, and medication reconciliation was completed including current medication andpost discharge medication. Review of Systems Reason unable [...] disorder OCD, impulse control Managed by Dr. Sorensen, psychiatry 4. Chronic constipation Caregiver reports no concerns. Continue lactulose, Miralax, Senokot, increased fiber diet. There are no Patient Instructions on file for this visit. ELECTRONICALLY SIGNED BY: EVY Miner APRN-CNP 07/08/24 1239 documented in this encounterAvita Health [facility]02-10-2025 History of Present illness Narrative* Hope Gonzalez LPN - 06/29/2024 11:00 AM EST Patient presents for regular Suprapubic catheter change via Caregiver from [facility] with # 24 fr Sp catheter attached to leg bag. Patient prepped and draped and Sp Site cleansed with betadine swabs2% lidocaine urojet instilled for comfort. # 24 fr Sp klein safely removed and replaced with # 24 fr Sp klein catheter 8 cc's to placement balloon. Sp klein catheter then attached to leg bag. night bag given. Hope Gonzalez LPN Ordering Doctor:MD Dania Supervising doctor: Dr Obie MD documented in this encounterAvita Health [facility]01-27-2025 History of Present illness Narrative* Maria Luisa Wagner DPM - 06/15/2024 10:45 AM EST Images from the original note were not [...] Disp: , Rfl: Water For Irrigation, Sterile ([place] Sterile Water) solution, Irrigate with as directed, [...] raised, fibrotic and keratotic; mildly macerated. There areno clinical signs of infection. Unremarkable for malodor [...] Maria Luisa Wagner DPM documented in this [facility]01-27-2025 Instructions* Patient Instructions* Maria Luisa Wagner DPM - 06/15/2024 10:45 AM EST As noted documented in this [facility]01-21-2025 History of Present illness Narrative* Hope Gonzalez LPN - 06/09/2024 10:30 AM EST Patient presents for Suprapubic catheter change with [...] with sterile water with return of 40 mLfluid. Sp klein catheter then attached to drainage bag. Pt. To return in 3 weeks for next S/P catheter change. Hope Gonzalez LPN Ordering Doctor: MD Dania Supervising doctor: MD Dania documented [facility] this [facility] History of Present illness Narrative* Maria Luisa Wagner, DPM - 05/27/2024 1:45 PM EST Images from the original note were not [...] Disp: , Rfl: Water For Irrigation, Sterile ([place] Sterile Water) solution, Irrigate with as directed, [...] midfoot: Sal[place] stage II neuropathic wound; location dorsal-lateralmidfoot; appearance and shape of the wound has changed. Wound bed remains well hydrated, clean and predominantly granular; minimal serous drainage, without undermining, tunneling or probing. Marginalepithelial response is again appreciated; particularly along the proximal wound margin. The wound margins are well adhered, slightly raised, fibrotic and keratotic; moderately macerated. There are noclinical signs of infection. Unremarkable for malodor or [...] Maria Luisa Wagner DPM documented in this [facility]01-08-2025 Instructions* Patient Instructions* Maria Luisa Wagner DPM - 05/27/2024 1:45 PM EST Wound care measures as noted documented in this [facility]01-06-2025 History of Present illness Narrative* Chapin Cast APRNKT - 05/25/2024 12:22 PM EST The OARRS/MAPPS database was reviewed today and found to be appropriate. No indication of medication diversion, or non compliance. EVY Miner 05/25/24 1223 documented in this encounterAv[facility]12-19-2024 History of Present illness Narrative* Maria Luisa Wagner, ELE - 05/07/2024 1:45 PM EST Images from the original note were not [...] Disp: , Rfl: Water For Irrigation, Sterile ([place] Sterile Water) solution, Irrigate with as directed, [...] midfoot: Sal[place] stage II neuropathic wound; location dorsal-lateralmidfoot; appearance and shape of the wound has changed. Wound bed remains well hydrated, clean and predominantly granular; minimal serous drainage, without undermining, tunneling or probing. Marginalepithelial response is again appreciated; particularly along the [...] Maria Luisa Wagner DPM documented in this encounterEastern [facility] [id number] Instructions* Patient Instructions* Maria Luisa Wagner DPM - 05/07/2024 1:45 PM EST Wound care measures as noted documented in this encounterEastern Missouri State HospitalUefascbedb53-96-2018 History of Present illness Narrative* Maria Luisa Wagner, DPM - 04/20/2024 3:30 PM EST Images from the original note were not [...] Disp: , Rfl: Water For Irrigation, Sterile ([place] Sterile Water) solution, Irrigate with as directed, [...] midfoot: Sal[place] stage II neuropathic wound; location dorsal-lateralmidfoot; appearance and shape of the wound has changed. Wound bed remains well hydrated, clean and predominantly granular; minimal serous drainage, without undermining, tunneling or probing. Marginalepithelial response is again appreciated; particularly along the [...] Maria Luisa Wagner DPM documented in this [facility]12-02-2024 Instructions* Patient Instructions* Maria Luisa Wagner DPM - 04/20/2024 3:30 PM EST Wound care measures as noted documented in this [facility]11-26-2024 History of Present illness Narrative* Hope Gonzalez LPN - 04/14/2024 9:30 AM EST Patient presents for Suprapubic catheter change accompanied [...] 40 mL fluid. Sp klein catheter then attachedto leg bag. Pt. Tolerated well. Will return in 3-4 weeks for new catheter change. Hope Gonzalez LPN Ordering Doctor: MD Dania Supervising doctor: MD Dania documented in this encounterAvita [facility]11-20-2024 History of Present illness Narrative* EVY Miner - 04/08/2024 8:30 AM EST Labs drawn in office today EVY Miner 04/08/24 0901 documented in this [facility]11-15-2024 History of Present illness Narrative* EVY Miner - 04/03/2024 11:59 PM EST Patient Name: Igor Pereira Date of : 1960 Date of Service: 04/07/2024 Facility: [facility] Igor Pereira is a 64 y.o. male seen today at [facility] for Chief Complaint Patient presents with routine follow up . Resides at [facility] Accompanied by RN today. Total care provided by staff, including medication administration. Attendsdaily workshop Severe cognitive and intellectual delay. Able [...] and are variable. Exacerbating diseases include obesity. Thereare no known factors aggravating his hyperlipidemia. Pertinent [...] 3 times per week. The stool is describedas firm. The patient is on a high [...] past medical history is significant for neuromuscular diseaseand psychiatric history. Past Medical History: Diagnosis Date [...] 02/15/2022 Performed by Annette Box DO at [facility] COLONOSCOPY N/A 12/17/2016 Performed by Annette Box DO at [facility] Family History Problem Relation [...] TAKE 1 CAPSULE BY MOUTH THREE TIMES DAILY(8AM,3PM,8PM) 93 capsule 11 amLODIPine (NORVASC) 2.5 mg tablet take 1 tablet by mouth once every day 31 tablet 11 ammonium lactate (AMLACTIN) 12 % cream Apply 1 Application topically as needed for dry skin. CALMOSEPTINE 0.44-20.6 % ointment APPLY TOPICALLY TO BUTTOCK TWICE DAILY;APPLY TOPICALLY TO BUTTOCKAS NEEDED 113 g 11 CHEST CONGESTION RELIEF 100 mg/5 mL syrup TAKE 10 ML BY MOUTH EVERY 6 HOURS NEEDED FOR COUGH 473mL 11 citalopram (CeleXA) 40 mg tablet Take [...] AREA 2 TIMES DAILY NEEDED FOR HEMORRHOIDS UNTILRESOLVED (DATE, TIME, INITIAL, EFFECT) 30 g 11 [...] by mouth in the morning and 1 tablet(2 mg total) before bedtime. 60 tablet 12 [...] KLEIN CATHETER ONCE WEEKLY;USE 30 CC'S TO IRRIGATEFOLEY CATHETER NEEDED (IF NOT USING SOD CHLORIDE) 500 mL 11 TAB-A-XIOMARA MULTIVITAMIN W-IRON 18-400 mg-mcg tablet take 1 tablet by mouth once every day 31 TRIPLE ANTIBIOTIC 3.5mg-400 unit- 5,000 unit/gram ointment [...] past medical history, past social history, past surgicalhistory, problem list, and medication reconciliation was completed including current medication andpost discharge medication. Review of Systems Reason unable [...] disorder OCD, impulse control Managed by Dr. Sorensen, psychiatry 4. Chronic constipation Caregiver reports no [...] Miner APRN-CNP 04/07/24 1249 documented in this encounterAvita [facility]11-15-2024 History of Present illness Narrative* Malinda Milian CMA - 04/03/2024 8:00 AM EST Was given by Chapin Cast at the [facility]. documented in this [facility]11-12-2024 History of Present illness Narrative* Maria Luisa Wagner DPM - 03/31/2024 9:30 AM EST Images from the original note were not [...] Disp: , Rfl: Water For Irrigation, Sterile ([place] Sterile Water) solution, Irrigate with as directed, [...] midfoot: Sal[place] stage II neuropathic wound; location dorsal-lateralmidfoot; appearance and shape of the wound has changed. Wound bed remains well hydrated, clean and predominantly granular wound bed; minimal serous drainage, without undermining, tunneling or probing. Marginal epithelial response is appreciated; particularly along the proximal wound margin. The wound margins are well adhered, slightly raised, fibrotic and keratotic; mildly macerated. There are noclinical signs of infection. Unremarkable for malodor or [...] Maria Luisa Wagner DPM documented in this [facility]11-12-2024 Instructions* Patient Instructions* Maria Luisa Wagner DPM - 03/31/2024 9:30 AM EST As noted documented in this [facility]11-06-2024 History of Present illness Narrative* Hope Gonzalez LPN - 03/25/2024 10:30 AM EST Patient presents for Suprapubic catheter change with # 24 fr Sp catheter attached to leg bag. Patient prepped and draped and Sp Site cleansed with betadine swabs. # 24 fr Sp klein safely removed and replaced with #24 fr Sp klein catheter 10 cc's to placement balloon. 24 fr Sp klein catheter then att ached to drainage bag. night bag given. Tolerated procedure well. Pt. Will return in 4 weeks for a regular monthly catheter change. Hope Gonzalez LPN Ordering Doctor: MD Dania Supervising doctor: Dr Obie MD documented in this [facility]10-22-2024 History of Present illness Narrative* Hope Gonzalez LPN - 03/10/2024 11:15 AM EDT Pt. Arrives at this office for what [...] his appt this morning just to have itlooked at. This nurse prepped the Pt. Onto the treatment bed. The stoma is clean, and dry. No signsof redness, no drainage or odor noted. The bag was disconnected from the catheter, and the catheterwas flushed to ensure patency. Catheter is patent [...] Supervising Physician: MD Dania documented in this encounterAvita [facility]10-11-2024 Miscellaneous Notes* Telephone Encounter - LAUREN Gaston - 02/28/2024 1:22 PM EDT Kathy from [facility] calls to let you know pt just had his sp tube changed on 02/25/2024, but he has more urine in his briefs than he does in the sp tube bag. * Telephone Encounter - Gisela Palacios MD - 02/28/2024 1:22 PM EDT Have them flush the sp tube with 10-20 cc of normal saline * Telephone Encounter - LAUREN Gaston - 02/28/2024 1:22 PM EDT Kathy was notified. documented in this encounterAvita [facility]10-11-2024 Telephone encounter Note* Telephone Encounter - LAUREN Gaston - 02/28/2024 1:22 PM EDT Kathy from [facility] calls to let you know pt just had his sp tube changed on 02/25/2024, but he has more urine in his briefs than he does in the sp tube bag. [facility]10-[facility] Telephone encounter Note* Telephone Encounter - Gisela Palacios MD - 02/28/2024 1:22 PM EDT Have them flush the sp tube with 10-20 cc of normal saline [facility]10-11-2024 Telephone encounter Note* Telephone Encounter - LAUREN Gaston - 02/28/2024 1:22 PM EDT Kathy was notified. [facility]10-[facility] History of Present illness Narrative* Maria Luisa Wagner DPM - 02/28/2024 10:30 AM EDT Images from the original note were not included. Subjective Patient ID: Igor Pereira is a 63 y.o. male who presents for No chief complaint on file.. HPI Follow-up assessment and wound care: Chronic, recalcitrant neuropathic wound; located dorsal lateral surface of the right midfoot. Accompanied by his caregiver, Evelyn. Status post SDRM 9th application (02/07/2024). Dressing remained in place [...] Disp: , Rfl: Water For Irrigation, Sterile ([place] Sterile Water) solution, Irrigate with as directed, [...] midfoot: Salinas stage II neuropathic wound; location dorsal-lateralmidfoot; appearance remains stable. Wound bed remains well hydrated, clean and predominantly granular wound bed; minimal serous drainage, without undermining, tunneling or probing. Marginal epithelial response is appreciated. The wound margins are well adhered, slightly raised, fibrotic and keratotic; mildly macerated. There are no clinical signs of infection. Unremarkable for malodor or ischemicchanges. Soft tissue envelope well perfused. Chronic, stable [...] Maria Luisa Wagner DPM documented in this [facility]10-11-2024 Instructions* Patient Instructions* Maria Luisa Wagner DPM - 02/28/2024 10:30 AM EDT Instructions as noted documented in this encounterEastern Missouri State HospitalMrkjtuhuxl76-14-9879 History of Present illness Narrative* Hope Gonzalez LPN - 02/25/2024 9:00 AM EDT Patient presents for Suprapubic catheter change accompanied [...] Supervising doctor: MD Dania documented in this encounterAvita Health [facility]09-20-2024 History of Present illness Narrative* Maria Luisa Wagner DPM - 02/07/2024 10:30 AM EDT Images from the original note were not included. Subjective Patient ID: Igor Pereira is a 63 y.o. male who presents for Foot Wound Check (Pt presents todayfor 2 week wound check. shelter is using the mesalt dressings. ). HPI [...] Disp: , Rfl: Water For Irrigation, Sterile ([place] Sterile Water) solution, Irrigate with as directed, [...] midfoot: Salinas stage II neuropathic wound; location dorsal-lateralmidfoot; appearance remains stable. Wound bed remains moist, [...] Maria Luisa Wagner DPM documented in this [facility]09-20-2024 Instructions* Patient Instructions* Maria Luisa Wagner DPM - 02/07/2024 10:30 AM EDT As noted documented in this [facility]09-10-2024 History of Present illness Narrative* Maria Luisa Wagner DPM - 01/28/2024 2:30 PM EDT Images from the original note were [...] by his caregiver, Alice. Status post SDRM 7th application (01/13/2024). Dressing remained in place [...] Disp: , Rfl: Water For Irrigation, Sterile ([place] Sterile Water) solution, Irrigate with as directed, [...] midfoot: Salinas stage II neuropathic wound; location dorsal-lateralmidfoot; appearance remains stable. Wound bed remains moist, [...] Maria Luisa Wagner DPM documented in this [facility]09-10-2024 Instructions* Patient Instructions* Maria Luisa Wagner DPM - 01/28/2024 2:30 PM EDT Wound care instructions as noted documented in this [facility]09-09-2024 History of Present illness Narrative* Sho Fabian CMA - 01/27/2024 10:30 AM EDT Patient presents for Suprapubic catheter change with [...] Supervising doctor:Dr Obie MD documented in this encounterAvita Health [facility]08-26-2024 History of Present illness Narrative* Maria Luisa Wagner DPM - 01/13/2024 12:45 PM EDT Images from the original note were [...] Disp: , Rfl: Water For Irrigation, Sterile ([place] Sterile Water) solution, Irrigate with as directed, [...] midfoot: Sal[place] stage II neuropathic wound; location dorsal-lateralmidfoot; appearance remains stable. Wound bed remains moist, [...] Maria Luisa Wagner DPM documented in this [facility]08-26-2024 Instructions* Patient Instructions* Maria Luisa Wagner DPM - 01/13/2024 12:45 PM EDT Wound care instructions as noted documented in this [facility]08-23-2024 History of Present illness Narrative* Chapin Cast APRN-SHON - 01/10/2024 9:20 AM EDT Images from the original note were not included. [address] [id number] SUBJECTIVE: Video Visit via Real-time Synchronous Audiovisual Provider Location: [facility] [address] [id number] Patient Location: Patient's home Video Visit Consent Statement: I discussed risks, benefits, and alternatives of a real-time synchronous audiovisual consultation with the patient (and any accompanying persons) including the risks that the patient's personal health details and medical records will be discussed over real-time, synchronous, interactive video/audio/telecommunication technology, the visit will not be recorded withoutthe express consent of both the provider and the patient, and that there are some limitations compared to [id number] evaluations. The patient consented to the presence of additional virtual and/or in-person participants. We elected to proceed. Patient ID: Igor Pereira is a 63 y.o. male. Chief Complaint Patient presents with COVID 19 Patient is accompanied by facility RN today. Resides at local [facility]. Cognitive and intellectual delay. RN reports 4 [...] 02/15/2022 Performed by Annette Box DO at [facility] N/A 12/17/2016 Performed by Annette Box DO at [facility] Past Medical History: Diagnosis Date Anemia Anxiety Bilateral impacted cerumen 10/23/2016 Calculus, bladder Cerumen debris on tympanic membrane of both ears 01/29/2017 Colon polyps Hydrocephalus ([facility]) Hydronephrosis Hypertension Neurogenic bladder Restlessness and agitation 01/10/2017 Spina bifida of lumbar spine ([facility]) Stricture, ureter Suprapubic catheter ([facility]) Urinary tract infection Immunization History Administered Date(s) [...] water gargles as needed for sore throat. Tylenolas needed per ticket chopper assembler guidelines for fever or pain. May continue [...] EVY Miner 01/10/24 1034 documented in this encounterAvita Health [facility]08-23-2024 Miscellaneous Notes* Addendum Note - EVY Miner - 01/10/2024 9:20 AM EDT Addended by: CHAPIN CAST on: 01/10/2024 11:33 AM Modules accepted: Orders documented in this [facility]08-23-2024 Note* Addendum Note - EVY Miner - 01/10/2024 9:20 AM EDTAddended by: CHAPIN CAST on: 01/10/2024 11:33 AM Modules accepted: Orders [facility]08-20-2024 History of Present illness Narrative* Hope Gonzalez LPN - 01/07/2024 12:15 PM EDT Patient presents for Suprapubic catheter change with [...] Dania Supervising doctor:MD Dania documented in this encounterAvita Health System [facility]07-23-2024 History of Present illness Narrative* Hope Gonzalez LPN - 12/10/2023 11:00 AM EDT Patient presents for Suprapubic catheter change with # 24 fr Sp catheter attached to leg bag. Patient prepped and draped and Sp Site cleansed with betadine swabs. This nurse did have a hard time taking the catheter out so more lube was added to the stoma prior to taking the S/P tube out. # 24 fr Spfoley safely removed and replaced with # 24 fr Sp klein catheter 9 cc's to placement balloon. Sp klein catheter then attached to drainage bag. Tolerated the procedure with no difficulties. Hope Gonzalez LPN Ordering Doctor: MD Dania Supervising doctor: MD Dania documented in this [facility]06-25-2024 History of Present illness Narrative* Hope Gonzalez LPN - 11/12/2023 10:00 AM EDT Patient presents for Suprapubic catheter change with #24 fr Sp catheter attached to a leg bag. Caregiver present. Patient prepped and draped and Sp Site cleansed with betadine swabs. # 24 fr Sp foleysafely removed. Catheter tip is in tact. Replaced with # 24 fr Sp klein catheter 9 cc's to placement balloon.. Sp klein catheter then attached to drainage bag. Pt.'s old catheter had little to no sediment in the catheter tubing, so it was fairly easy to remove and replace with the new catheter. Pt.Tolerated the catheter change very well with no difficulties. No further questions or concerns. Pt.'s Caregiver stated that he has been leaking less around the stoma since there has been more water added to the balloon port. Hope Gonzalez LPN Ordering Doctor: MD Dania Supervising doctor:MD Dania documented in this [facility]06-19-2024 History of Present illness Narrative* EVY Miner - 11/06/2023 8:00 AM EDT Routine lab draw EVY Miner 11/06/23 0856 documented in this [facility]06-07-2024 History of Present illness Narrative* EVY Miner - 10/25/2023 8:28 AM EDT Subjective SUBJECTIVE: Patient ID: Igor Pereira is a 63 y.o. male who presents for a Medicare Annual Wellness exam. Resides at [facility]. He is accompanied today by RN. Planning on having dental procedure with possible general anesthesia. Resides at [facility] Accompanied by RN today. Total care provided [...] 02/15/2022 Performed by Annette Box DO at [facility] N/A 12/17/2016 Performed by Annette Box DO at [facility] Past Medical History: Diagnosis Date Anemia Anxiety Bilateral impacted cerumen 10/23/2016 Calculus, bladder Cerumen debris on tympanic membrane of both ears 01/29/2017 Colon polyps Hydrocephalus ([facility]) Hydronephrosis Hypertension Neurogenic bladder Restlessness and agitation 01/10/2017 Spina bifida of lumbar spine ([facility]) Stricture, ureter Suprapubic catheter ([facility]) Urinary tract infection Immunization History Administered Date(s) [...] when others do not?: No (Unable to appropriatlyanswer due to severe cognative and intellectual delay.) Does your family ever voice concerns about your hearing?: No Personal Health During the past 4 weeks, how would you rate your overall health?: (Unable to appropriatly answer due to severe cognative and intellectual delay.) End of Life Planning Do you have a living will?: (!) No Do you have a durable power of attorney at law?: Yes Cognitive Screening Do you have trouble [...] EVY Miner 10/28/23 1317 documented in this encounterAvita Health [facility]05-28-2024 History of Present illness Narrative* Hope Gonzalez LPN - 10/15/2023 11:00 AM EDT Patient presents for Suprapubic catheter change with [...] Supervising doctor: MD Dania documented in this encounterAvita Health [facility]05-17-2024 History of Present illness Narrative* Chapin Cast, SOAP TENDER-SENIOR RECEPTIONIST - 10/04/2023 11:59 PM EDT Patient Name: Igor Pereira Date of : 1960 Date of Service: October 04, 2023 Facility: [facility] Igor Pereira is a 63 y.o. male seen today at [facility] for Chief Complaint Patient presents with Routine 3 month follow up . Resides at [facility] Accompanied by RN today. Total care provided by staff, including medication administration. Attendsdaily workshop Severe cognitive and intellectual delay. Able [...] and are variable. Exacerbating diseases include obesity. Thereare no known factors aggravating his hyperlipidemia. Pertinent [...] 3 times per week. The stool is describedas firm. The patient is on a high [...] past medical history is significant for neuromuscular diseaseand psychiatric history. Past Medical History: Diagnosis Date Anemia Anxiety Bilateral impacted cerumen 10/23/2016 Calculus, bladder Cerumen debris on tympanic membrane of both ears 01/29/2017 Colon polyps Hydrocephalus ([facility]) Hydronephrosis Hypertension Neurogenic bladder Restlessness and agitation 01/10/2017 Spina bifida of lumbar spine ([facility]) Stricture, ureter Suprapubic catheter ([facility]) Urinary tract infection Past Surgical History: Procedure Laterality Date BLADDER SURGERY suprapubic catheter placement COLONOSCOPY N/A 02/15/2022 Performed by Annette Box DO at [facility] N/A 12/17/2016 Performed by Annette Box DO at [facility] Family History Problem Relation [...] TOPICALLY TO BUTTOCK TWICE DAILY;APPLY TOPICALLY TO BUTTOCKAS NEEDED 113 g 11 CHEST CONGESTION RELIEF 100 mg/5 mL syrup TAKE 10 ML BY MOUTH EVERY 6 HOURS NEEDED FOR COUGH 473mL 11 citalopram (CeleXA) 40 mg tablet TAKE [...] AREA 2 TIMES DAILY NEEDED FOR HEMORRHOIDS UNTILRESOLVED (DATE, TIME, INITIAL, EFFECT) 30 g 11 psyllium husk, with sugar, (METAMUCIL FIBER THIN) 2 gram wafer TAKE 2 WAFERS BY MOUTH ONCE EVERY DAY WITH MORNING MEDS 60 Wafer 11 risperiDONE (RisperDAL) 2 mg tablet Take 1 tablet (2 mg total) by mouth in the morning and 1 tablet(2 mg total) before bedtime. 60 tablet 11 [...] KLEIN CATHETER ONCE WEEKLY;USE 30 CC'S TO IRRIGATEFOLEY CATHETER NEEDED (IF NOT USING SOD CHLORIDE) 500 mL 11 TAB-A-XIOMARA MULTIVITAMIN W-IRON 18-400 mg-mcg tablet TAKE 1 TABLET BY MOUTH ONCE EVERY DAY 31 [id number] TRIPLE ANTIBIOTIC 3.5mg-400 unit- 5,000 unit/gram ointment [...] past medical history, past social history, past surgicalhistory, problem list, and medication reconciliation was completed including current medication andpost discharge medication. Review of Systems Reason unable [...] disorder OCD, impulse control Managed by Dr. Sorensen, psychiatry 4. Chronic constipation Caregiver reports no [...] Miner APRN-CNP 10/21/23 1448 documented in this [facility]04-23-2024 History of Present illness Narrative* Hope Gonzalez LPN - 09/10/2023 9:30 AM EDT Caregiver and Patient presents for Suprapubic catheter change with # 24 fr Sp catheter attached to a leg bag. Patient prepped and draped and Sp Site cleansed with betadine swabs 2% lidocaine urojet instilled for comfort. # 24 fr Sp klein safely removed and replaced with # 24 fr Sp klein catheter 10cc's to placement balloon. Sp klein catheter then attached to drainage bag. night bag given. Tolerated procedure well, will return in 4 weeks for next SP tube change. Hope Gonzalez LPN Ordering Doctor: MD Dania Supervising doctor: MD Dania [facility] History of Present illness Narrative* Hope Gonzalez LPN - 08/13/2023 9:30 AM EDT Patient presents for Suprapubic catheter change with #24 fr Sp catheter attached to leg bag, Caregiver present. Patient prepped and draped and Sp Site cleansed with betadine swabs 2% lidocaine urojetinstilled for comfort. # 24 fr Sp klein [...] Supervising doctor: MD Dania documented in this encounterAv[facility]24 Miscellaneous Notes* Telephone Encounter - Kelly Mahogany - 07/09/2023 11:16 AM EST Called pt caregiver to schedule next SP catheter change. Should be in about 4 weeks (around 08/06/2023). I asked them to call back at [phone] to schedule. documented in this encounterAv[facility]24 Telephone encounter Note* Telephone Encounter - Kelly Mahogany - 07/09/2023 11:16 AM EST Called pt caregiver to schedule next SP catheter change. Should be in about 4 weeks (around 08/06/2023). I asked them to call back at [phone] to schedule. [facility] [employer] [id number] History of Present illness Narrative* Hope Gonzalez LPN - 07/09/2023 9:30 AM EST Patient presents for Suprapubic catheter change, Caregiver [...] Supervising doctor: MD Dania documented in this encounterAv[facility] History of Present illness Narrative* Chapin Cast, SOAP TENDER-SENIOR RECEPTIONIST - 07/05/2023 11:59 PM EST Patient Name: Igor Pereira Date of : 1960 Date of Service: 07/15/2023 Facility: [facility] Igor Pereira is a 63 y.o. male seen today at [facility] for Chief Complaint Patient presents with routine follow up . Resides at [facility] [place] Accompanied by RN today. Total care provided by staff, including medication administration. Attendsdaily workshop Severe cognitive and intellectual delay. Able to verbalize needs in short phrases and facial expressions. Was ordered PT at previous appointment due to falls. RN states never received call for set up. She would like new referral to [facility], request Trixie Shea. Patient is homebound. Request PT in the home. He has not had any recent falls. He was started on Mobic for multiple joint arthritic pain. This has improved his symptoms. Resent visit to [facility] for clogged suprapubic catheter on 06/06/22. This concern has been resolved. Is monitored by urology and has suprapubic catheter changed every 4-[address] Sorensen, psychiatry, for impulse control behaviors. Moods and [...] and are variable. Exacerbating diseases include obesity. Thereare no known factors aggravating his hyperlipidemia. Pertinent [...] 3 times per week. The stool is describedas firm. The patient is on a high [...] past medical history is significant for neuromuscular diseaseand psychiatric history. Past Medical History: Diagnosis Date Anemia Anxiety Bilateral impacted cerumen 10/23/2016 Calculus, bladder Cerumen debris on tympanic membrane of both ears 01/29/2017 Colon polyps Hydrocephalus ([facility]) Hydronephrosis Hypertension Neurogenic bladder Restlessness and agitation 01/10/2017 Spina bifida of lumbar spine ([facility]) Stricture, ureter Suprapubic catheter ([facility]) Urinary tract infection Past Surgical History: Procedure Laterality Date BLADDER SURGERY suprapubic catheter placement COLONOSCOPY N/A 02/15/2022 Performed by Annette Box DO at [facility] COLONOSCOPY N/A 12/17/2016 Performed by Annette Box DO at [facility] SPINE SURGERY Family History Problem Relation [...] TOPICALLY TO BUTTOCK TWICE DAILY;APPLY TOPICALLY TO BUTTOCKAS NEEDED 113 g 11 CHEST CONGESTION RELIEF 100 mg/5 mL syrup TAKE 10 ML BY MOUTH EVERY 6 HOURS NEEDED FOR COUGH 473mL 11 citalopram (CeleXA) 40 mg tablet TAKE [...] AREA 2 TIMES DAILY NEEDED FOR HEMORRHOIDS UNTILRESOLVED (DATE, TIME, INITIAL, EFFECT) 30 g 11 psyllium husk, with sugar, (METAMUCIL FIBER THIN) 2 gram wafer TAKE 2 WAFERS BY MOUTH ONCE EVERY DAY WITH MORNING MEDS 60 Wafer 11 risperiDONE (RisperDAL) 2 mg tablet Take 1 tablet (2 mg total) by mouth in the morning and 1 tablet(2 mg total) before bedtime. 60 tablet 11 [...] KLEIN CATHETER ONCE WEEKLY;USE 30 CC'S TO IRRIGATEFOLEY CATHETER NEEDED (IF NOT USING SOD CHLORIDE) 500 mL 11 TAB-A-XIOMARA MULTIVITAMIN W-IRON 18-400 mg-mcg tablet TAKE 1 TABLET BY MOUTH ONCE EVERY DAY 31 [id number] TRIPLE ANTIBIOTIC 3.5mg-400 unit- 5,000 unit/gram ointment [...] disorder OCD, impulse control Managed by Dr. Sorensen, psychiatry 4. Chronic constipation Continue lactulose, Miralax, Senokot, increased fiber diet. 5. Falls Denies recent falls. New orders for PT evaluation and treatment Ordered March 2023. RN relates never received call for set up. She request new referral for [facility]. 6. Osteoarthritis, multiple joints Meloxicam [...] Miner APRN-CNP 07/18/23 0917 documented in this encounterAv[facility]01-23-2024 History of Present illness Narrative* Hope Gonzalez LPN - 06/11/2023 9:30 AM EST Pt. Arrives for regular monthly SP cath [...] Supervising doctor: MD Dania documented in this encounterAv[facility]07-14-2023 History of Present illness Narrative* Dora Alvarado DDS - 11/30/2022 10:24 AM EDT ----- Wednesday, November 30, 2022 at 1:07:59 PM ----- ----- Provider: [id number] Resident Tamra -- Clinic: [place] ----- OR EVALUATION Patient presents for evaluation [...] becomes available. Legal Guardian: Vilma Schmitt (Sister) [phone] , verbal consent was taken NOTE: OR request was put in place Next Visit: Dental treatment in the OR ----- Signed on Wednesday, November 30, 2022 at 8:25:31 PM ----- ----- Provider: [id number] Yamini Glass DMD -- Clinic: [place] ----- documented in this [id number] History of Present illness Narrative* Jozef Clayton DDS - 09/29/2021 7:02 AM EDT Surgical Case Number Data Unavailable Operating Room Data Unavailable Preoperative Diagnosis(es): Aggressive behavior Intellectual disability F79 Chronic Periodontitis K05.30 Postoperative Diagnosis(es): Aggressive behavior Intellectual disability F79 Surgeon: Wilma Haskins DDS Modeling Analyst Surgeon: Leslye Guerra DDS Anesthesia: General- Nasal [...] attending and the resident and used in conju nction with th oral exam to formulate a treatment plan. No restorations No extractions The remaining dentition was then polished with prophy paste. The oral cavity was irrigated and suctioned then the throat pack was removed. Fluoride treament was placed on the remaining dentition. Thepatient tolerated the procedure well was extubated in [...] DDS 09/29/2021 1:10 PM documented in this [id number] Miscellaneous Notes* Telephone Encounter - Mary Anderson RN - 09/27/2021 12:45 PM EDT Please see scanned document in [employer]. Anesthesia consent obtained by Dr. Frazier by sister. documented in this [id number] Miscellaneous Notes* Telephone Encounter - Radha Martines RN - 09/20/2021 11:48 AM EDT Outside pre-op evaluation received & scanned into [employer]. Medication list updated in [employer]. Scheduled for dental surgery 09/29/2021. documented in this [id number] Miscellaneous Notes* Telephone Encounter - Radha Martines RN - 09/20/2021 11:20 AM EDT Patient is vaccinated for COVID-19: Moderna on 05/30/2020 & 06/27/2020. Patient does not require pre-op COVID testing per current guidelines. documented in this encounterMetroHealthChi complaint+Reason for visit Narrative* Chief Complaint fever, congestion, f atigue congestion, fever, coughReason for VisitCOVID-19 [facility] Work Phone: Evaluation noteNo assessment information available [facility] Work Phone: Evaluation note* Diagnosis Onset Date Resolution Status COVID-19 noneactive [facility] Work Phone: Evaluation note* Diagnosis Stage II pressure ulcer of right heel (CMS/HCC)- Primary Hereditary sensory-motor neuropathy, type I Peroneal muscular atrophy Lumbar spina bifida without hydrocephalus (CMS/HCC) Spina bifida without mention of hydrocephalus, lumbar region Flaccid paraplegia, incomplete, at lumbar level (CMS/HCC) documented in this encounter [facility] HealthcareEvaluation note* Diagnosis Stage II pressure ulcer of right heel (CMS/HCC)- Primary Hereditary sensory-motor neuropathy, type I Peroneal muscular atrophy Lumbar spina bifida without hydrocephalus (CMS/HCC) Spina bifida without mention of hydrocephalus, lumbar region Flaccid paraplegia, incomplete, at lumbar level (CMS/HCC) documented in this encounter [facility] HealthcareEvaluation note* Diagnosis Stage II pressure ulcer of right heel (CMS/HCC)- Primary Hereditary sensory-motor neuropathy, type I Peroneal muscular atrophy Lumbar spina bifida without hydrocephalus (CMS/HCC) Spina bifida without mention of hydrocephalus, lumbar region Flaccid paraplegia, incomplete, at lumbar level (CMS/HCC) documented in this encounter [facility] HealthcareEvaluation note* Diagnosis Anxiety due to invasive procedure Impulse control disorder Impulse control disorder, unspecified Intellectual disability Unspecified mental retardation [facility] Diagnosis Spastic neurogenic bladder- Primary Neurogenic bladder, NOS documented [facility]* Diagnosis Suprapubic catheter (CMS-HCC)- Primary Other cystostomy status [facility] Diagnosis Suprapubic catheter (CMS-HCC)- Primary Other cystostomy status [facility]* Diagnosis Medicare annual wellness visit, subsequent- Primary [facility]* Diagnosis Suprapubic catheter (CMS-HCC)- Primary Other cystostomy status [facility]* Diagnosis Primary hypertension- Primary Unspecified essential hypertension Mixed hyperlipidemia Intellectual disability Unspecified mental retardation Impulse control disorder in adult Chronic constipation Unspecified constipation [facility] Diagnosis Mixed hyperlipidemia- Primary Primary hypertension Unspecified essential hypertension Screening for diabetes mellitus Low ferritin Other nonspecific findings on examination of blood documented in this encounter [facility] System[facility]* Diagnosis Anxiety due to invasive procedure Impulse control disorder Impulse control disorder, unspecified Intellectual disability Unspecified mental retardation documented in this encounter [facility] System[facility] note* Diagnosis Suprapubic catheter (CMS-HCC)- Primary Other cystostomy status documented in this encounter [facility]* Diagnosis Falls, sequela- Primary Osteoarthritis of multiple joints, unspecified osteoarthritis type Primary hypertension Unspecified essential hypertension Mixed hyperlipidemia Chronic constipation Unspecified constipation Impulse control disorder Impulse control disorder, unspecified documented in this encounter [facility] System[facility] note* Diagnosis Spastic neurogenic bladder- Primary Neurogenic bladder, NOS documented in this encounter [facility] System[facility] note* Diagnosis Chronic constipation Unspecified constipation documented in this encounter [facility] System[facility] note* Diagnosis Pressure ulcer of right foot, stage 1 documented in this encounter [facility] System[facility] note* Diagnosis COVID-19- Primary documented in this encounter [facility] note* Diagnosis Suprapubic catheter (CMS-HCC)- Primary Other cystostomy status documented in this encounter [facility] System[facility] note* Diagnosis Osteoarthritis of multiple joints, unspecified osteoarthritis type documented in this encounter [facility] System[facility] note* Diagnosis Spastic neurogenic bladder- Primary Neurogenic bladder, NOS documented in this encounter [facility] System[facility] note* Diagnosis Encounter for immunization- Primary documented in this encounter [facility] note* Diagnosis Benign essential HTN- Primary Chronic constipation Unspecified constipation Impulse control disorder Impulse control disorder, unspecified Intellectual disability Unspecified mental retardation Mixed hyperlipidemia documented in this encounter [facility] System[facility] note* Diagnosis Benign essential HTN- Primary Need for hepatitis C screening test Special screening examination for other specified viral diseases documented in this encounter [facility] System[facility] note* Diagnosis Suprapubic catheter (CMS-HCC)- Primary Other cystostomy status documented in this encounter [facility] System[facility] note* Diagnosis Primary hypertension- Primary Unspecified essential hypertension Chronic constipation Unspecified constipation Intellectual disability Unspecified mental retardation Impulse control disorder Impulse control disorder, unspecified Mixed hyperlipidemia documented in this encounter [facility] SystemEvaluation note* Diagnosis Onset Date Resolution Status Admit Date Fracture of third metacarpal bone of rig ht hand noneactiveMarch 17th, 2025 10:02am [facility] Work Phone: Evaluation note* Diagnosis Stage II pressure ulcer of right heel (CMS/HCC)- Primary Hereditary sensory-motor neuropathy, type I Peroneal muscular atrophy Lumbar spina bifida without hydrocephalus (CMS/HCC) Spina bifida without mention of hydrocephalus, lumbar region Flaccid paraplegia, incomplete, at lumbar level (CMS/HCC) documented in this encounter [facility] HealthcareEvaluation note* Diagnosis Spastic neurogenic bladder- Primary Neurogenic bladder, NOS documented [facility] Diagnosis Primary hypertension- Primary Unspecified essential hypertension Impulse control disorder Impulse control disorder, unspecified Intellectual disability Unspecified mental retardation Mixed hyperlipidemia Chronic constipation Unspecified constipation [facility]* Diagnosis Stage II pressure ulcer of right heel (CMS/HCC)- Primary Hereditary sensory-motor neuropathy, type I Peroneal muscular atrophy Lumbar spina bifida without hydrocephalus (CMS/HCC) Spina bifida without mention of hydrocephalus, lumbar region Flaccid paraplegia, incomplete, at lumbar level (CMS/HCC) documented in this encounter [facility] HealthcareEvaluation note* Diagnosis Medicare annual wellness visit, subsequent- Primary [facility]* Diagnosis Stage II pressure ulcer of right heel (CMS-HCC)- Primary Hereditary sensory-motor neuropathy, type I Peroneal muscular atrophy Lumbar spina bifida without hydrocephalus (HCC) Spina bifida without mention of hydrocephalus, lumbar region Flaccid paraplegia, incomplete, at lumbar level (HCC) documented in this encounter [facility] HealthcareEvaluation note* Diagnosis Dermatophytosis of nail- Primary Dystrophic nail Other specified disease of nail Hereditary sensory-motor neuropathy, type I Peroneal muscular atrophy Lumbar spina bifida without hydrocephalus (HCC) Spina bifida without mention of hydrocephalus, lumbar region documented in this encounter [facility]* Diagnosis Stage II pressure ulcer of right heel (CMS-HCC)- Primary Hereditary sensory-motor neuropathy, 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, incomplete, at lumbar level (HCC) Lumbar spina bifida without hydrocephalus (HCC) Spina bifida without mention of hydrocephalus, lumbar region documented in this encounter [facility]* Diagnosis Spastic neurogenic bladder- Primary Neurogenic bladder, NOS [facility]* Diagnosis Chronic constipation Unspecified constipation [facility]* Diagnosis Suprapubic catheter ([facility])- Primary Other cystostomy status [facility]* Diagnosis Pressure ulcer of right foot, stage 1 [facility] this [facility]* Diagnosis Spastic neurogenic bladder- Primary Neurogenic bladder, NOS Suprapubic catheter (CMS-HCC) Other cystostomy status Urinary tract infection associated with cystostomy catheter, sequela documented [facility] this [facility]* Diagnosis Stage II pressure ulcer of right heel (CMS-HCC)- Primary Hereditary sensory-motor neuropathy, 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, incomplete, at lumbar level (HCC) Lumbar spina bifida without hydrocephalus (HCC) Spina bifida without mention of hydrocephalus, lumbar region documented in this encounter [facility] HealthcareEvaluation note* Diagnosis Stage II pressure ulcer of right heel (CMS-HCC)- Primary Hereditary sensory-motor neuropathy, 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, incomplete, at lumbar level (HCC) Lumbar spina bifida without hydrocephalus (HCC) Spina bifida without mention of hydrocephalus, lumbar region documented in this encounter [facility] HealthcareEvaluation note* Diagnosis Osteoarthritis of multiple joints, unspecified osteoarthritis type documented [facility] this encounter [facility]* Diagnosis Anxiety due to invasive procedure Impulse control disorder Impulse control disorder, unspecified Intellectual disability Unspecified mental retardation documented in this encounter [facility] SystemEvaluation note* Diagnosis Stage II pressure ulcer of right heel ([facility]-H[facility])- Primary Hereditary sensory-motor neuropathy, 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, incomplete, at lumbar level (HCC) Lumbar spina bifida without hydrocephalus (HCC) Spina bifida without mention of hydrocephalus, lumbar region documented in this encounter [facility] HealthcareInstructionsNot on filedocumented in this encounterProMedica Health SystemInstructionsNot on filedocumented in this encounterProMedica Health SystemInstructionsNot on filedocumented in this encounterProMedica Health SystemInstructionsNot on filedocumented in this encounterPro[facility]ica [facility] InstructionsNot on filedocumented in this encounterProMedica Health [facility] Instructions* Attachments The following attachments cannot be sent through Care Everywhere. * Yearly Physical for Adults (Spanish) documented in this [facility] SystemInstructionsNot on file documented in this [facility] SystemInstructions* Attachments The following attachments cannot be sent through Care Everywhere. * Constipation Discharge Instructions, Adult (Spanish) [facility] SystemInstructionsNot on file documented in this [facility] SystemInstructionsNot on file documented in this [facility] SystemInstructions* Attachments The following attachments cannot be sent through Care Everywhere. * Constipation, Adult ED (Spanish) documented in this [facility] [employer] SystemInstructionsNot on file documented in this [facility] [employer] SystemInstructionsNot on file documented in this [facility] SystemInstructions* Attachments The following attachments cannot be sent through Care Everywhere. * COVID-19 overview (Spanish) [facility] this [facility] Attachments The following attachments cannot be sent through Care Everywhere. * High blood pressure emergencies (Spanish) documented in this [facility] SystemInstructions* Attachments The following attachments cannot be sent through Care Everywhere. * High cholesterol (Spanish) documented in this [facility] SystemInstructions* Attachments The following attachments cannot be sent through Care Everywhere. * Managing constipation from your medicines (Spanish) documented in this [facility] SystemInstructions* Attachments The following attachments cannot be sent through Care Everywhere. * Diet and health (Spanish) documented in this [facility] SystemInstructionsNot on file documented in this [facility] [employer] SystemInstructionsNot on file documented in this [facility] [employer] SystemInstructionsNot on file documented in this [facility] Summary Purpose Family History No Family History Records Found Relationship Condition Age at Onset Recorded Date/T ciera family member Unknown Advance Directives No Advanced Directives Records Found Advance Directive Response Recorded Date/ Time Advance Directives No January 11:37am Chief Complaint and Reason for Visit Chief Complaint congestion, fever, c ough Chief Complaint Admit Date Right 3rd,4th,5th finger bruising, swell ing August 03, 2024 10:02am M79.641 - Pain in right hand August 03, 2024 10:43am Reason for Visit Admit Date Fracture of third metacarpal bone of rig ht hand August 03, 2024 10:02am Reason for Referral SpecialtyDiagnoses / ProceduresReferred By ContactReferred To Contact Diagnoses Suprapubic catheter ([facility]) Procedures ASPIRATION BLADDER INSERT SUPRAPUBIC CATHETER Gisela Palacios MD [address] [place] [id number] Referral IDStatusReasonStart DateExpiration DateVisits RequestedVisits [id number] [id number] / ProceduresReferred By ContactReferred To Contact Diagnoses Suprapubic catheter ([facility]) Procedures Urinary leg bag Gisela Palacios MD [address] [place] [address] Referral IDStatusReasonStart DateExpiration DateVisits RequestedVisits [id number] Review/[id number] IDStatusReasonStart DateExpiration DateVisits RequestedVisits [id number] Review /[id number] IDStatusReasonStart DateExpiration DateVisits RequestedVisits [id number] Review/[id number] ID StatusReasonStart DateExpiration DateVisits RequestedVisits [id number] Pending Review/[id number] IDStatusReasonStart DateExpiration DateVisits RequestedVisits [id number] Review/ Referral IDStatusReasonStart DateExpiration DateVisits RequestedVisits [id number] Review/[id number] IDStatusReasonStart DateExpiration DateVisits RequestedVisits [id number] Review /[id number] / ProceduresReferred By ContactReferred To ContactRehabilitation Diagnoses Fall, initial encounter Osteoarthritis of multiple joints, unspecified osteoarthritis type Chapin Cast, SOAP TENDER-SENIOR RECEPTIONIST [address] [place] [address] Referral IDStatusReasonStart DateExpiration DateVisits RequestedVisits [id number] Review Specialty Services Required 1Referral IDStatusReasonStart DateExpiration DateVisits RequestedVisits [id number] Review1Referral ID StatusReasonStart DateExpiration DateVisits RequestedVisits [id number] Pending [id number] / ProceduresReferred By ContactReferred To Contact Diagnoses Spastic neurogenic bladder Procedures ASPIRATION BLADDER INSERT SUPRAPUBIC CATHETER Gisela Palacios MD [address] [place] [address] Referral IDStatusReasonStart DateExpiration DateVisits RequestedVisits [id number] [id number] / ProceduresReferred By ContactReferred To Contact Diagnoses Spastic neurogenic bladder Procedures Urinary leg bag Gisela Palacios MD [address] [place] [address] Referral IDStatusReasonStart DateExpiration DateVisits RequestedVisits [id number] Review1Referral IDStatusReasonStart DateExpiration DateVisits RequestedVisits [id number] Review 1Referral IDStatusReasonStart DateExpiration DateVisits RequestedVisits [id number] Review1Specialty Diagnoses / ProceduresReferred By ContactReferred To Contact Diagnoses Suprapubic catheter ([facility] Procedures Urinary leg bag Annette Mills MD [address] [place] [address] Referral IDStatusReasonStart DateExpiration DateVisits RequestedVisits [id number] [id number] / ProceduresReferred By ContactReferred To Contact Diagnoses Suprapubic catheter ([facility]) Procedures ASPIRATION BLADDER INSERT SUPRAPUBIC CATHETER Annette Mills MD [address] [place] [address] Referral IDStatusReasonStart DateExpiration DateVisits RequestedVisits [id number] Review/[id number] IDStatusReasonStart DateExpiration DateVisits RequestedVisits [id number] Review 1Referral IDStatusReasonStart DateExpiration DateVisits RequestedVisits [id number] Khovfy07 Additional Source Comments Reason for Visit (unrecogniz ed section and content) ReasonOnset DateCommentsPre-surgical Wudqfptexs57/04/2022re-op COVID testing not neededReasonOnset DateCommentsPre-surgical Uvarrzlhhx08/04/2022Outside records receivedReasonOnset DateCommentsPre-surgical Vsxkqxmuix60/10/2022DD adult dental restorations 09/29 under [place] at [place]. OSH H+P under senior media director. Request to main for anesthesia consent - see future encounter. PSE RN spoke to [facility] confirmed NPO except clears until, [place] address, and 1100 arrival time.ReasonOnset DateCommentsPre-surgical Bmtvlwhwan58/11/2022ANESTHESIA ATTESTATION FOR DENTAL SURGERY SCANNED IN EpicReasonCommentsMed RefillReason CommentsWound CareThtana Pereira is a 63 y.o. male who presents for wound care.ReasonCommentsWound CareThomas Raymond Pereira is a 64 y.o. male who presents for Wound Care.ReasonCommentsWound CareThomas G Naderer is a 63 y.o. male who presents for Foot Wound Check. Pt presents today with his caregiver Evelyn for a wound check. Dressing was in place until Saturday01/11/24.ReasonCommentsWound Jocelyn Pereira is a 63 y.o. male who presents for Foot Wound Check. Pt presents today with his caregiver Alice for a wound check. Alice relates she is not sure how long the dressing stayed on and reports patients BL braces and shoes were on the wrong feet,when picked up today.ReasonCommentsFoot Wound Check Pt presents today for 2 week wound check. shelter is using the mesalt dressings.ReasonCommentsFoot UlcerIgor Pereira is a 64 y.o. male who presents for Wound Care.ReasonOnset DateCommentsMed Ajlyar4505/22/2024Reason CommentsWound care/Nail Jocelyn Pereira is a 64 y.o. male who presents for Wound Care.ReasonCommentsBladder ProblemReasonCommentsWound Jocelyn Pereira is a 64 y.o. male who presents for Wound Care.ReasonCommentsBladder Problem ReasonCommentsBladder ProblemReasonCommentsRoutine 3 month follow upReasonOnset DateCommentsMed Jpzhsr644ReasonCommentsroutine follow upReasonComments COVID 19ReasonCommentsFollow-upReasonCommentsBladder ProblemReasonComments routine follow upReasonCommentsFoot UlcerEstablished pt presents today with his nurse Kathy for 1 month wound check, right foot.ReasonComments3 month follow up visitReasonCommentsFoot UlcerEstablished pt presents today with care staff for 3 week wound check, right foot.ReasonCommentsFollow-upEstablished pt presents today for 3 week wound check, right foot.ReasonCommentsFollow upReason CommentsWound Jocelyn Pereira is a 64 y.o. Established pt presents today for 3 week wound check, right foot. Care staff Sofia is present.ReasonComments Wound CareIgor Pereira is a 64 y.o. Established pt presents today for 3 week wound check, right foot. Care staff Herminio is present.ReasonCommentsWound Check Established patient presents today for 3 week wound check of the right foot. ReasonCommentsToenail CareEstablished patient presents today for routine nail care.ReasonCommentsFoot Wound CheckThtana Pereira is a 64 y.o. male who presents for Wound check. Care staff Evelyn is present.ReasonCommentsMed Refill ReasonCommentsFoot Wound CheckPT is here today for wound check, his is here today with his caregiver, Evelyn.ReasonCommentsFoot Wound CheckPt is here today for wound check Rt foot, his caregiver Herminio is with him today.ReasonCommentsCV recheck/ medicationsReasonOnset DateCommentsMed Dpgspt5101/26/2025ReasonComments Bladder ProblemUrinary Tract InfectionReasonCommentsWound CareFungusEstablished patient presents today for 3 week wound check, right foot. Patient also appears to havenew area of concern on medial side of foot.ReasonOnset DateCommentsMed Rdtvdj5603/02/2025ReasonCommentsWound CheckEstablished patient presents today for 2 week wound check of the right foot. (unrecognized sect ion and content) No Status Records FoundNo Status Records FoundNo Status Records FoundNo Status Records FoundNo Status Records FoundNo Status Records FoundNo Status Records Found INFORMATION SOURCE (unrecogn ized section and content) DATE CREATED AUTHOR 11/03/2021 [facility] DATE CREATED AUTHOR AUTHOR'S ORGANIZ ATION 12/06/2022 [facility] DATE CREATED AUTHOR AUTHOR'S ORGANIZ ATION 04/11/2024 [facility] DATE CREATED AUTHOR AUTHOR'S ORGANIZ ATION 08/05/2024 [facility] DATE CREATED AUTHOR AUTHOR'S ORGANIZ ATION 01/20/2025 [facility] DATE CREATED AUTHOR AUTHOR'S ORGANIZ ATION 03/11/2025 [facility] DATE CREATED AUTHOR AUTHOR'S ORGANIZ ATION 03/18/2025 [facility] EPIC Care Teams (unrecognized sec tion and content) Team Status: Active Member Role Status Dates ANJELICA Miner Primary Care Provider Active Team Status: Inactive Member Role Status Dates ANJELICA Miner Primary Care Provider Active Start: January 09, 2024 End: January 08Taras Blackwellding ProviderActiveStart: January 09, 2024 End: January 09, 2024Team MemberRelationshipSpecialtyStart DateEnd Date Ricky Quintana MD [address] [place] [address] PCP - GeneralFamily Medicine10/30/22 Chapin Cast CRNP [address] [place] [address] Referring PhysicianNurse Practitioner10/30/22Team MemberRelationshipSpecialty Start DateEnd Date Ricky Quintana MD [address] [place] [address] [facility]10/30/22 Chapin Cast CRNP [address] [place] [address] Referring PhysicianNurse Practitioner10/30/22Team MemberRelationshipSpecialty Start DateEnd Date Chapin Cast, SOAP TENDER-[facility] [address] [place] [address] PCP - GeneralNurse Jaajzuyiymau46/31/17Team MemberRelationshipSpecialtyStart DateEnd Date Ricky Quintana MD [address] [place] [address] P[facility] - [facility]10/30/22 Chapin Cast CRNP [address] [place] [address] Referring PhysicianNurse Practitioner10/30/22Team MemberRelationshipSpecialty Start DateEnd Date Ricky Quintana MD [address] [place] [address] PCP - GeneralFamily Medicine10/30/22 Chapin Cast CRNP [address] [place] [address] Referring PhysicianNurse Practitioner10/30/22Te MemberRelationshipSpecialty Start DateEnd Date Chapin Cast, SOAP TENDER-[facility] [address] [place] [address] PCP - GeneralNurse Rgtilggzjtxr85/31/17Team MemberRelationshipSpecialtyStart DateEnd Date Chapin Cast, SOAP TENDER-[facility] [address] [place] [address] PCP - GeneralNurse Gpzvivplcags90/31/17Team MemberRelationshipSpecialtyStart DateEnd Date Chapin Cast, SOAP TENDER-SENIOR RECEPTIONIST [address] [place] [address] PCP - GeneralNurse Tmzgkbtgxqfr20/31/17Team MemberRelationshipSpecialtyStart DateEnd Date Chapin Cast, SOAP TENDER-[facility] [address] [place] [address] PCP - GeneralNurse Ymsjqsswzkdu27/31/17Team MemberRelationshipSpecialtyStart DateEnd Date Chapin Cast, SOAP TENDER-[facility] [address] [place] [address] PCP - GeneralNurse Gzykjxnstbwa83/31/17 MemberRelationshipSpecialtyStart DateEnd Date Chapin Cast, SOAP TENDER-[facility] [address], [place] [address] PCP - GeneralNurse Gssjvkqrfylv05/31/17 MemberRelationshipSpecialtyStart DateEnd Date Chapin Cast, SOAP TENDER-[facility] [address] [place] [address] PCP - GeneralNurse Rusllfmksoyw67/31/17 MemberRelationshipSpecialtyStart DateEnd Date Chapin Cast, SOAP TENDER-[facility] [address] [place] [address] PCP - GeneralNurse Sotjhakirtqi66/31/17am MemberRelationshipSpecialtyStart DateEnd Date Chapin Cast, SOAP TENDER-[facility] [address] [place] [address] PCP - GeneralNurse Ssuespyxbfxk36/31/17am MemberRelationshipSpecialtyStart DateEnd Date Chapin Cast, SOAP TENDER-[facility] [address] [place] [address] PCP - GeneralNurse Lvhnsljpskdb69/31/17Team MemberRelationshipSpecialtyStart DateEnd Date Chapin Cast, [facility] [address] [place] [address] PCP - GeneralNurse Gyyyqviftyfs87/31/17am MemberRelationshipSpecialtyStart DateEnd Date Chapin Cast, [facility] [address], [place] [address] PCP - GeneralNurse Cewpfhzaxggl90/31/17am MemberRelationshipSpecialtyStart DateEnd Date Chapin Cast, [facility] [address] [place] [address] PCP - GeneralNurse Xvpbdbvknynq60/31/17Team MemberRelationshipSpecialtyStart DateEnd Date Chapin Cast, [facility] [address] [place] [address] [place] [address] PCP - GeneralNurse Cydjokrcavni17/31/17Team MemberRelationshipSpecialtyStart DateEnd Date Chapin Cast, [facility] [address], [place] [address] PCP - GeneralNurse Ojbrtfbavchk72/31/17Team MemberRelationshipSpecialtyStart DateEnd Date Chapin Cast, [facility] [address] [place] [address] PCP - GeneralNurse Spvvbewnpxrw57/31/17 Team Status: Inactive Member Role Status Dates Chapin Cast TABLE KEEPER-C Primary Care Provider Active Start: August 03, 2024 End: August 03, 2024Jarrell Brandt ProviderActiveStart: August 03, 2024 End: August 03, 2024 Team Status: Active Member Role Status Dates Chapin Cast TABLE KEEPER-C Primary Care Provider Active Start: August 03, 2024 Jarrell Brandt ProviderActiveStart: August 03, 2024 Team MemberRelationshipSpecialtyStart DateEnd Date Ricky Quintana MD [address] [place] [address] PCP - [facility] Medicine10/30/22 Chapin Cast CRNP [address] [place] [address] Referring PhysicianNurse Practitioner10/30/22Team MemberRelationshipSpecialty Start DateEnd Date Ricky Quintana MD [address] [place] [address] PCP - [facility] Medicine10/30/22 Chapin Cast CRNP [address] [place] [address] Referring PhysicianNurse Practitioner10/30/22Team MemberRelationshipSpecialty Start DateEnd Date Paul Block MD [address] [place] [address] [facility]10/01/24 Chapin Cast CRNP [address] [place] [address] Referring PhysicianNurse Practitioner10/30/22Team MemberRelationshipSpecialty Start DateEnd Date Paul Block MD [address] [place] [address] [address] [place] [address] PCP - GeneralFamily Medicine10/01/24 Chapin Cast CRNP [address] [place] [address] Referring PhysicianNurse Practitioner10/30/22Team MemberRelationshipSpecialty Start DateEnd Date Paul Block MD [address] [place] [address] [address] [place] [address] PCP - GeneralFamily Medicine10/01/24 Chapin Cast CRNP [address] [place] [address] Referring PhysicianNurse Practitioner10/30/22Team MemberRelationshipSpecialty Start DateEnd Date Paul Block MD [address], [place] [address] PCP - GeneralFamily Medicine10/01/24 Chapin Cast CRNP [address] [place] [address] Referring PhysicianNurse Practitioner10/30/22Team MemberRelationshipSpecialty Start DateEnd Date Chapin Cast, SOAP TENDER-SENIOR RECEPTIONIST PCP - GeneralNurse Nrhwccxchxhd79/31/17Team MemberRelationshipSpecialtyStart DateEnd Date Chapin Cast, SOAP TENDER-SENIOR RECEPTIONIST PCP - GeneralNurse Lvntgaaygfrh36/31/17am MemberRelationshipSpecialtyStart DateEnd Date Paul Block, DO [address] [place] [address] PCP - GeneralFamily Medicine12/07/24Team MemberRelationshipSpecialtyStart DateEnd Date Paul Block DO [address] [place] [address] PCP - GeneralFamily Medicine12/07/24Team MemberRelationshipSpecialtyStart DateEnd Date Paul Block DO [address] [place] [address] PCP - GeneralFamily Medicine12/07/24Team MemberRelationshipSpecialtyStart DateEnd Date Paul Block DO [address] [place] [address] PCP - GeneralFamily Medicine12/07/24Team MemberRelationshipSpecialtyStart DateEnd Date Paul Block DO [address] [place] [address] PCP - GeneralFamily Medicine12/07/24Team MemberRelationshipSpecialtyStart DateEnd Date Paul Block DO [address], [place] [address] [facility] - [facility]12/07/24Team MemberRelationshipSpecialtyStart DateEnd Date Paul Block DO [address], [place] [address] PCP - [facility] Medicine12/07/24Team MemberRelationshipSpecialtyStart DateEnd Date Paul Block MD [address], [place] [address] P[facility] - [facility] Medicine10/01/24 Chapin Cast CRNP [address], [place] [address] Referring PhysicianNurse [facility]10/30/22Team MemberRelationshipSpecialty Start DateEnd Date Lilia Molina, SOAP TENDER-SENIOR RECEPTIONIST [address] [place] [address] PCP - GeneralInternal Ncrnmscl36/16/25Team MemberRelationshipSpecialtyStart Date End Date Lilia Molina, SOAP TENDER-SENIOR RECEPTIONIST [address] [place] [address] PCP - GeneralInternal Ofrcmynk96/16/25Team MemberRelationshipSpecialtyStart Date End Date Lilia Molina, SOAP TENDER-SENIOR RECEPTIONIST [address] [place] [address] PCP - GeneralInternal Gbswfqpd94/16/25Team MemberRelationshipSpecialtyStart Date End Date Paul Block MD [address], [place] [address] PCP - GeneralFamily Medicine10/01/24 Chapin Cast CRNP [address], [place] [address] Referring PhysicianNurse Practitioner10/30/22 Goals (unrecognized section and content) Goals may [...] this encounterNot on filedocumented as of this encounterGoals may be documented in an alternate sectionNot [...] BE BASED ON THE PRIMARY CLINICAL RECORDS. [employer] [facility]. provides no warranty or guarantee of the accuracy or completeness of information in this document.
[2025-03-30 07:01] LABS: Hematocrit 35.2 % (42.0-54.0); Hemoglobin 11.7 g/dL (14.0-18.0); Immature Granulocytes Abs Auto 0.01 10^3/uL (0.00-0.03); Immature Granulocytes Pct Auto 0.2 % (0.0-0.5); Lymphocytes Absolute Auto 1.3 10^3/uL (1.2-3.8); Mean Corpuscular HGB Conc 33.2 g/dL (29.9-35.2); Mean Corpuscular Hemoglobin 31.7 pg (25.9-34.0); Mean Corpuscular Volume 95.4 fL (80.0-94.0); Platelet Count 147 10^3/uL (150-450); Red Blood Count 3.69 10^6/uL (4.70-6.10); White Blood Count 6.3 10^3/uL (4.0-11.0)
[2025-03-30 07:22] LABS: Alanine Aminotransferase 22 U/L (16-63); Albumin Globulin Ratio 0.8; Albumin Level 3.0 g/dL (3.4-5.0); Alkaline Phosphatase 80 U/L (46-116); Anion Gap 12.9; Aspartate Amino Transferase 14 U/L (15-37); Blood Urea Nitrogen 22.0 mg/dL (7.0-18.0); Calcium 8.8 mg/dL (8.5-10.1); Carbon Dioxide 27.0 mmol/L (21.0-32.0); Chloride 107 mmol/L (98-107); Cholesterol 127 mg/dL (<=200); Estimated GFR (African America >60 (>=60 mL/min/1.73m^2); Estimated GFR (Non-African Ame 50 (>=60 mL/min/1.73m^2); Globulin 3.7 g/dL; Glucose 89 mg/dL (74-106); HDL Cholesterol 52 mg/dL (40-60); Potassium 3.9 mmol/L (3.5-5.1); Sodium 143 mmol/L (136-145); Total Protein 6.7 g/dL (6.4-8.2); Triglycerides 83 mg/dL (<=150); VLDL CHOLESTEROL 16.6 mg/dL
== END 2025-03-30 06:41 | disposition home or self-care (01) ==
PROVIDERS: PCP Nurse Practitioner; Visit Provider Nurse Practitioner
DX: Z12.5 Encounter for screening for malignant neoplasm of prostate (principal); E78.2 Mixed hyperlipidemia; D50.8 Other iron deficiency anemias; I10 Essential (primary) hypertension; E55.9 Vitamin D deficiency, unspecified
CPT/HCPCS: 36415; 80053; 80061; 85025